=== PATIENT | female | born 1965 | race Caucasian/White ===

== ENCOUNTER 2016-07-12 15:18 | Inpatient (IN) | payer OTHER ==
[~2016-07-12] VITALS: Ht 167.6 cm; Wt 94.9 kg
[~2016-07-12 15:18] MED LIST: AMIT100T2 PO; AMIT25TA9 PO; AMOX500C2 PO; AMT10T PO; ATOR40TA70 PO; BACL10TA PO; BACL20TA PO; CALC-671 PO; CEPH250C PO; CITA-105 PO; CLON1TAB PO; CLON1TAB36 PO; CRB200T PO; CYCL10TA45 PO; DCC240C PO; DICL50TA6 PO; DXM4T PO; GABA400C PO; HYDR-757 PO; LAMO200T14 PO; MULT-1018 PO; MULT-974 PO; Proventil HFA INH; ZIPR80CA9 PO
--- OUTSIDE RECORDS SUMMARY | 2016-07-12 15:25 | XMS REPORT | Continuity of Care Document ---
Author Author [facility] Address Unknown Phone Unavailable Care Team Providers Care [employer] And Caul[employer] Supervisor Name Role Phone Marla Navarro PCP [phone] Source Comments Some departments are not documenting in the electronic medical record. If you do not see the information that you expected, contact Release of Information in the Health Information Management department at [phone] for further assistance in locating additional records.[facility] Active Allergies and Adverse Reactions No Known Allergies Current Medications Prescription Sig. Disp. Refills Start End Date Status Date gabapentin (NEURONTIN) Take 800 mg by mouth Active 300 mg capsule three times daily. TOPIRAMATE (TOPAMAX PO) Take 50 mg by mouth twice Active daily. SERTRALINE HCL (ZOLOFT Take 150 mg by mouth Active PO) daily. amitriptyline (ELAVIL) Take 150 mg by mouth at Active 150 mg tablet bedtime daily. traMADol (ULTRAM) 50 mg Take 50 mg by mouth every Active tablet 8 hours as needed for Pain. baclofen (LIORESAL) 10 mg Take 10 mg by mouth three Active tablet times daily. ACETAMINOPHEN (TYLENOL 8 Take 500 mg by mouth Active HOUR PO) three times daily. atorvastatin (LIPITOR) 40 Take 20 mg by mouth Active mg tablet daily. aspirin/acetaminophen/caf Take 1 Tab by mouth every Active feine(+) (EXCEDRIN 8 hours as needed. MIGRAINE) 250/250/65 mg tab zonisamide (ZONEGRAN) 100 100mg at bedtime for 1 60 Cap 5 05/21/ Active mg capsule week, then 100mg BID 17 carBAMazepine (TEGRETOL) Take 200 mg by mouth Active 200 mg tablet three times daily. Indications: Patient taking twice daily hydrOXYzine (ATARAX) 25 Take 25 mg by mouth three Active mg tablet times daily as needed for Itching. busPIRone (BUSPAR) 10 mg Take 10 mg by mouth three Active tablet times daily. lamoTRIgine (LAMICTAL) 25 Take 75 mg by mouth twice Active mg tablet daily. senna/docusate Take 0.5 Tabs by mouth Active (SENOKOT-S) 8.6/50 mg daily. tablet losartan (COZAAR) 50 mg Take 25 mg by mouth Active tablet daily. Active Problems No known active problems Most Recent Encounters Date Type Specialty Providers Description 06/06/2016 Office Visit Anesthesia Pain Haroon Mi MD Trigeminal neuralgia (Primary Dx); Neuropathic pain 05/22/2016 Ancillary Radiology Outpatient, Radiologist Diagnosis unknown Orders (Primary Dx) 05/21/2016 Office Visit Neurology Rebecca Moya MBBS Chronic face pain (Primary Dx); Seizure (HCC); TBI (traumatic brain injury), with loss of consciousness of unspecified duration, sequela (HCC) 05/21/2016 Orders Only Neurology Rebecca Moya MBBS 05/03/2016 Telephone Neurology Rebecca Moya MBBS Pre-Visit Planning - Dr. Moya 05/21/16 Social History Tobacco Use Types Packs/Day Years Used Date Current Every Day Smoker Cigarettes 1 25 Alcohol Use Drinks/Week oz/Week Comments No 0 Standard 0.0 drinks or equivalent Last Filed Vital Signs Vital Sign Reading Time Taken Blood Pressure 115/79 06/06/2016 1:24 PM [employer] Pulse 94 06/06/2016 1:24 PM [employer] Temperature 36.8 C (98.2 F) 06/06/2016 1:24 PM [employer] Respiratory Rate - - Height 1.702 m (5' 7") 06/06/2016 1:24 PM [employer] Weight 89.359 kg (197 lb) 06/06/2016 1:24 PM [employer] Body Mass Index 30.85 06/06/2016 1:24 PM [employer] Oxygen Saturation 100% 06/06/2016 1:24 PM [employer] Plan of Care Date Type Specialty Providers Description 07/24/2016 Appointment Anesthesia Pain Health Maintenance Due Date Last Done Comments Hepatitis C Screening 1965 Physical (Comprehensive) 08/24/1970 Exam Pertussis Vaccine 08/24/1974 Tetanus Vaccine 08/24/1980 Cervical Cancer Screening 08/24/1984 Breast Cancer Screening 2003 Colorectal Cancer 08/24/2013 Screening Influenza Vaccine 01/03/2017 Results from Last 3 Months TSH WITH FREE T4 REFLEX (05/21/2016 3:04 PM) Component Value Range TSH 3rd Generation 1.56Comment: mIU/L Reference Range > or=20 Years 0.40-4.50 Ranges First trimester 0.26-2.66 Second trimester 0.55-2.73 Third trimester 0.43-2.91 Test Performed at: [employer] [facility] [place] [address] JOVITA OH DO,MPH VITAMIN B12 (05/21/2016 3:04 PM) Component Value Range Vitamin B12 374Comment: 200-1100 pg/mL Please Note: Although the reference range for vitamin B12 is 200-1100 pg/mL, it has been reported that between 5 and 10% of patients with values between 200 and 400 pg/mL may experience neuropsychiatric and hematologic abnormalities due to occult B12 deficiency; less than 1% of patients with values above 400 pg/mL will have symptoms. Test Performed at: [facility] [place] [address] JOVITA OH DO,MPH CBC AND DIFF (05/21/2016 3:04 PM) Component Value Range White Blood Cells 7.7 3.8-10.8 Thousand/uL RBC 4.44 3.80-5.10 Million/uL Hemoglobin 14.0 11.7-15.5 g/dL Hematocrit 42.2 35.0-45.0 % MCV 95.1 80.0-100.0 fL MCH 31.5 27.0-33.0 pg MCHC 33.1 32.0-36.0 g/dL RDW 14.1 11.0-15.0 % Platelet Count 502 (H) 140-400 Thousand/uL MPV 7.6 7.5-11.5 fL Absolute Neutrophil Count 4281 6222-2825 cells/uL Absolute Lymph Count 2895 850-3900 cells/uL Absolute Monocyte Count 408 200-950 cells/uL Absolute Eosinophil Count 92 15-500 cells/uL Absolute Basophil Count 23 0-200 cells/uL Neutrophils 55.6 % Lymphocytes 37.6 % Monocytes 5.3 % Eosinophils 1.2 % Basophils 0.3Comment: % Test Performed at: [facility]ITAL[facility] [place] [address] JOVITA OH DO,MPH SED RATE (05/21/2016 3:04 PM) Component Value Range Sed Rate -ESR 12Comment: < OR=30 mm/h Test Performed at: [employer] [id number] [place] [address] JOVITA OH DO,MPH COMPREHENSIVE METABOLIC PANEL (05/21/2016 3:04 PM) Component Value Range Glucose 77Comment: 65-99 mg/dL Fasting reference interval Blood Urea Nitrogen 9 7-25 mg/dL Creatinine 0.66Comment: 0.50-1.05 mg/dL For patients >49 years of age, the reference limit for Creatinine is approximately 13% higher for people identified as -[place]. eGFR Non 102 > OR=60 mL/min/1.73m2 eGFR 118 > OR=60 mL/min/1.73m2 BUN/Creatinine Ratio NOT APPLICABLE 6-22 (calc) Sodium 135 135-146 mmol/L Potassium 3.9 3.5-5.3 mmol/L Chloride 99 98-110 mmol/L CO2 28 20-31 mmol/L Calcium 9.0 8.6-10.4 mg/dL Total Protein 6.5 6.1-8.1 g/dL Albumin 3.9 3.6-5.1 g/dL Globulin 2.6 1.9-3.7 g/dL (calc) Albumin/Globulin Ratio 1.5 1.0-2.5 (calc) Total Bilirubin 0.3 0.2-1.2 mg/dL Alk Phosphatase 91 33-130 U/L AST (SGOT) 15 10-35 U/L ALT (SGPT) 14Comment: 6-29 U/L Test Performed at: [employer] [id number] [place] [address] JOVITA OH DO,MPH
[2016-07-12] MEDS ORDERED: NS IV 1000 ML 1,000 ML IV ONE (16:47)
[2016-07-12 16:54] LABS: BASOPHILS # (AUTO) 0.1 10^3/uL (0.0-0.1); BASOPHILS % (AUTO) 1 % (0-10); EOSINOPHILS # (AUTO) 0.1 10^3/uL (0.0-0.3); EOSINOPHILS % (AUTO) 1 % (0-10); LYMPHOCYTES # (AUTO) 1.7 X 10^3 (1.0-4.0); LYMPHOCYTES % (AUTO) 18 % (12-44); MEAN CORPUSCULAR HEMOGLOBIN 32 PG (25-34); MEAN CORPUSCULAR HGB CONC 33 G/DL (32-36); MEAN CORPUSCULAR VOLUME 97 FL (80-99); MEAN PLATELET VOLUME 9.2 FL (7.4-10.4); MONOCYTES # (AUTO) 0.7 X 10^3 (0.0-1.0); MONOCYTES % (AUTO) 7 % (0-12); NEUTROPHILS # (AUTO) 6.8 X 10^3 (1.8-7.8); NEUTROPHILS % (AUTO) 73 % (42-75); PLATELET COUNT 389 10^3/uL (130-400); RED BLOOD COUNT 4.08 10^6/uL (4.35-5.85); RED CELL DISTRIBUTION WIDTH 13.3 % (10.0-14.5); WHITE BLOOD COUNT 9.3 10^3/uL (4.3-11.0)
--- NOTE | 2016-07-12 17:03 | ED General ---
General Chief Complaint: Neurological Problems Stated Complaint: SEIZURE, POSS BREAK ON L LEG AND WRIST Nursing Triage Note: PT HAD SEIZURE TODAY. NOW C/O L ANKLE PAIN AND SWELLING AND THAT HER 'HEART HURTS'. Nursing Sepsis Screen: No Definite Risk Source of Information: Patient Exam Limitations: Other (KAMRON SY MD) History of Present Illness Time Seen by Provider: 16:41 Initial Comments Here with daughter who reports that patient had a seizure today. She does have history of seizure disorder. Patient is complaining of a variety of things including that she does not have her anxiety medicines and that her heart hurts. She is also complaining of facial pain due to likely a fall and left lower extremity pain from a fall. She has wounds on her back and her arms that apparently had been evaluated at clinic. She is currently on antibiotic. 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 Patient is slurred of speech and somewhat confused and a little irritable. She does get her medicines some from the [place] and some from [facility]. [facility] is her primary care center here. Denies fever or chills. Denies breathing problems. She is not very descriptive of her pain in her chest except for her heart hurts. She reports swelling of her leg that she states is for the last 2 weeks but there is some confusion and maybe the swelling is worse today or mostly from today. This is in the area of the ankle. Patient is able to walk but she is unsteady in gait. Timing/Duration: 4-6 Hours Severity: Moderate Associated Systoms: Chest PainNo Cough, No Fever/Chills, No Nausea/Vomiting, SeizureNo Shortness of Air, Weakness (KAMRON SY MD) Allergies and Home Medications Allergies Coded Allergies: No Known Drug Allergies (Unverified , 06/09/14) Home Medications 2 PUFF INH Q4H PRN PRN SHORTNESS OF BREATH (Reported) Amitriptyline Hcl 100 Mg Tablet 100 MG PO HS (Reported) Amoxicillin 500 Mg Capsule #21 500 MG PO TID Prescribed by: HUMAIRA HARVEY on 02/10/15 3310 Atorvastatin Calcium 40 Mg Tablet 20 MG PO HS (Reported) take 1/2 of a 40 mg tablet every night Calcium Carbonate/Vitamin D3 1 Each Tablet 1 TAB PO DAILY (Reported) Carbamazepine 200 Mg Tab 200 MG PO BID (Reported) Cephalexin Monohydrate 250 Mg Cap 5Days 500 MG PO BID Prescribed by: IZABELA HARRIS on 10/05/14 09 Citalopram Hydrobromide 40 Mg Tablet 20 MG PO DAILY (Reported) take 1/2 of a 40 mg tablet once daily Clonazepam 1 Mg Tablet 1 MG PO QID (Reported) Cyclobenzaprine Hcl 10 Mg Tablet 10 MG PO TID (Reported) Diclofenac Sodium 50 Mg Tablet.dr 50 MG PO TID PRN PRN MUSCLE SPASMS (Reported) Docusate Calcium 240 Mg Cap 240 MG PO DAILY (Reported) Gabapentin 400 Mg Capsule 1,200 MG PO TID (Reported) take 3 (400 mg) tablets three times per day Hydrocodone/Acetaminophen 1 Each Tablet #10 1 EACH PO Q6H PRN PRN PAIN Prescribed by: HUMAIRA HARVEY on 02/10/151855 Lamotrigine 200 Mg Tablet 200 MG PO BID (Reported) Multivitamin 1 Each Tablet 1 TAB PO DAILY (Reported) Multivits-Min/Folic Acid/Biot 1 Each Tablet 1 TAB PO DAILY (Reported) Constitutional: see HPINo chills, No fever EENTM: No nose congestion, No nose pain, No throat pain Respiratory: No dyspnea on exertion, No short of breath Cardiovascular: chest pain edemaNo palpitations Gastrointestinal: no symptoms reportedNo nausea, No vomiting Genitourinary: no symptoms reported : No Musculoskeletal: joint pain joint swelling muscle pain Skin: see HPI lesions Psychiatric/Neurological: See HPI Anxiety Seizure Weakness Hematologic/Lymphatic: No Symptoms Reported (KAMRON SY MD) All Other Systems Reviewed Negative Unless Noted: Yes (KAMRON SY MD) Past Fuwdwsl-Vtsfqq-Cqusjo Hx Patient Social History Alcohol Use: Denies Use Recreational Drug Use: Yes Drug of Choice: MARIJUANA Smoking Status: Current Everyday Smoker Recent Foreign Travel: No Contact w/Someone Who Travel: No Recent Infectious Disease Expo: No Recent Hopitalizations: No (KAMRON SY MD) Immunizations Up To Date Tetanus Booster (TDap): Less than 5yrs (KAMRON SY MD) Seasonal Allergies Seasonal Allergies: No (KAMRON SY MD) Surgeries HX Surgeries: Yes (FACE) Surgeries: Section, Orthopedic, Tubal Ligation (KAMRON SY MD) Respiratory Hx Respiratory Disorders: No Respiratory Disorders: Pneumonia (KAMRON SY MD) Cardiovascular Hx Cardiac Disorders: No (KAMRON SY MD) Neurological Hx Neurological Disorders: Yes (trigeminal neuralgia) Neurological Disorders: Seizure Disorder, Traumatic Brain Injury (KAMRON SY MD) Reproductive System Hx Reproductive Disorders: No Female Reproductive Disorders: Denies SHUTTLER History: Menopausal (KAMRON SY MD) Genitourinary Hx Genitourinary Disorders: Yes (urgency, incontinent) (KAMRON SY MD) Gastrointestinal Hx Gastrointestinal Disorders: No (KAMRON SY MD) Musculoskeletal Hx Musculoskeletal Disorders: Yes (FACIAL PAIN) Musculoskeletal Disorders: Chronic Back Pain (KAMRON SY MD) Endocrine Hx Endocrine Disorders: No (KAMRON SY MD) HEENT HX ENT Disorders: No (KAMRON SY MD) Cancer Hx Cancer: No (KAMRON SY MD) Psychosocial Hx Psychiatric Problems: Yes Behavioral Health Disorders: Anxiety, PTSD, Bipolar, Depression (KAMRON SY MD) Integumentary HX Skin/Integumentary Disorder: No (KAMRON SY MD) Blood Transfusions Hx Blood Disorders: No (KAMRON SY MD) Reviewed Nursing Assessment Reviewed/Agree w Nursing PMH: Yes (KAMRON SY MD) Family Medical History Significant Family History: No Pertinent Family Hx Family Medial History: Alcoholism 19 FATHER Arthritis 19 MOTHER FH: bipolar disorder (KAMRON SY MD) Family Medial History: Alcoholism 19 FATHER Arthritis 19 MOTHER FH: bipolar disorder (ALINA GUEVARA MD) Physical Exam Vital Signs Vital Sign - Last 12Hours 07/12/16 16:34 Pulse 82 Resp 18 B/P 103/78 Pulse Ox 96 (ALINA GUEVARA MD) Vital Signs Capillary Refill : Less Than 3 Seconds (KAMRON SY MD) General Appearance: WD/WN Anxious HEENT: PERRL/EOMI Other (mucous membranes dry. Tenderness to the left orbital rim and to the chin. There is bruising near the left eye and left cheek.) Neck: Full Range of Motion Normal Inspection Non Tender Supple Respiratory: Lungs Clear Normal Breath Sounds Cardiovascular: Regular Rate, Rhythm No Murmur Gastrointestinal: Non Tender Soft Back: Normal Inspection No CVA Tenderness No Vertebral Tenderness Extremity: Non Tender Pedal Edema (left leg from the foot to just below the knee) Other (mild tenderness to the left ankle and distal tib-fib area.) Neurologic/Psychiatric: Alert Other (fused with unsteady gait) Skin: Warm/Dry Other (multiple areas of excoriation on her back and extremities. Wounds are in various stages of healing and appear to be picked at.) (KAMRON SY MD) Progress/Results/Core Measures Results/Orders Lab Results Laboratory Tests Test 07/12/16 16:45 07/12/16 17:56 Range/Units Acetaminophen Level < 10 L 10-30 UG/ML Alanine Aminotransferase (ALT/SGPT) 17 0-55 U/L Albumin 4.1 3.2-4.5 G/DL Alkaline Phosphatase 96 40-136 U/L Anion Gap 10 5-14 MMOL/L Aspartate Amino Transf (AST/SGOT) 22 5-34 U/L BUN/Creatinine Ratio 9 Basophils # (Auto) 0.1 0.0-0.1 10^3/uL Basophils (%) (Auto) 1 0-10 % Blood Urea Nitrogen 7 7-18 MG/DL C-Reactive Protein High Sensitivity 6.40 H 0.00-0.50 MG/DL Calcium Level 9.4 8.5-10.1 MG/DL Carbon Dioxide Level 28 21-32 MMOL/L Chloride Level 104 98-107 MMOL/L Creatinine 0.77 0.60-1.30 MG/DL D-Dimer 1.93 H 0.00-0.49 UG/ML Eosinophils # (Auto) 0.1 0.0-0.3 10^3/uL Eosinophils (%) (Auto) 1 0-10 % Estimat Glomerular Filtration Rate > 60 Glucose Level 95 70-105 MG/DL Hematocrit 40 35-52 % Hemoglobin 12.9 11.5-16.0 G/DL Lymphocytes # (Auto) 1.7 1.0-4.0 X 10^3 Lymphocytes (%) (Auto) 18 12-44 % Magnesium Level 2.0 1.8-2.4 MG/DL Mean Corpuscular Hemoglobin 32 25-34 PG Mean Corpuscular Hemoglobin Concent 33 32-36 G/DL Mean Corpuscular Volume 97 80-99 FL Mean Platelet Volume 9.2 7.4-10.4 FL Monocytes # (Auto) 0.7 0.0-1.0 X 10^3 Monocytes (%) (Auto) 7 0-12 % Neutrophils # (Auto) 6.8 1.8-7.8 X 10^3 Neutrophils (%) (Auto) 73 42-75 % Platelet Count 389 130-400 10^3/uL Potassium Level 3.9 3.6-5.0 MMOL/L Red Blood Count 4.08 L 4.35-5.85 10^6/uL Red Cell Distribution Width 13.3 10.0-14.5 % Salicylates Level < 5.0 L 5.0-20.0 MG/DL Serum Alcohol < 5 <10 MG/DL Sodium Level 142 135-145 MMOL/L Thyroid Stimulating Hormone (TSH) 0.81 0.35-4.94 UIU/ML Total Bilirubin 0.3 0.1-1.0 MG/DL Total Protein 7.1 6.4-8.2 G/DL Troponin I < 0.30 <0.30 NG/ML White Blood Count 9.3 4.3-11.0 10^3/uL Ur Tricyclic Antidepressants Screen POSITIVE H NEGATIVE Urine Amphetamines Screen NEGATIVE NEGATIVE Urine Bacteria TRACE /HPF Urine Barbiturates Screen NEGATIVE NEGATIVE Urine Benzodiazepines Screen NEGATIVE NEGATIVE Urine Bilirubin NEGATIVE NEGATIVE Urine Cannabinoids Screen NEGATIVE NEGATIVE Urine Casts NONE /LPF Urine Clarity CLEAR Urine Cocaine Screen NEGATIVE NEGATIVE Urine Color YELLOW Urine Crystals NONE /LPF Urine Culture Indicated NO Urine Glucose (UA) NEGATIVE NEGATIVE Urine Ketones NEGATIVE NEGATIVE Urine Leukocyte Esterase NEGATIVE NEGATIVE Urine Methadone Screen NEGATIVE NEGATIVE Urine Methamphetamines Screen NEGATIVE NEGATIVE Urine Mucus SMALL H /LPF Urine Nitrite NEGATIVE NEGATIVE Urine Opiates Screen NEGATIVE NEGATIVE Urine Oxycodone Screen NEGATIVE NEGATIVE Urine Phencyclidine Screen NEGATIVE NEGATIVE Urine Propoxyphene Screen NEGATIVE NEGATIVE Urine Protein NEGATIVE NEGATIVE Urine RBC NONE /HPF Urine RBC (Auto) NEGATIVE NEGATIVE Urine Specific [place] 1.015 L 1.016-1.022 Urine Urobilinogen NORMAL NORMAL MG/DL Urine WBC NONE /HPF Urine pH 6.5 5-9 (ALINA GUEVARA MD) My Orders Orders-ALINA GUEVARA MD Steplite (07/12/16 18:20) Fibrin Degradation Products (07/12/16 18:27) Albuterol/Ipra Inhalation Soln (Duoneb I (07/12/16 18:30) Svn Sm Volume Nebulizer Rt-Rfs (07/12/16 18:27) Ct Angio Chest W (07/12/16 18:41) Us Venous Lower Ext Lt (07/12/16 18:41) Iohexol Injection (Omnipaque 350 Mg/Ml 1 (07/12/16 18:45) Sodium Chloride Flush (Catheter Flush Sy (07/12/16 18:45) Ns (Ivpb) (Sodium Chloride 0.9% Ivpb Bag (07/12/16 18:45) Levofloxacin 750 Mg/150 Ml Iv (Levaquin (07/12/16 20:15) Blood Culture (07/12/16 20:07) Apixaban Tablet (Eliquis Tablet) (07/12/16 20:15) Ceftriaxone Injection (Rocephin Injectio (07/12/16 20:15) Lamotrigine Level (07/12/16 20:27) Carbamazepine (Tegretol) (07/12/16 20:27) Topamax (07/12/16 20:27) Apixaban Tablet (Eliquis Tablet) (07/12/16 20:30) Fentanyl Injection (Sublimaze Injection (07/12/16 20:45) (ALINA GUEVARA MD) Medications Given in ED Current Medications Medications Dose Ordered Sig/Christian Route Start Time Stop Time Status Last Admin Dose Admin Albuterol/ Ipratropium 3 ml ONCE ONCE INH 07/12/16 18:30 07/12/16 18:31 DC 07/12/16 18:35 3 ML Iohexol 150 ml ONCE ONCE IV 07/12/16 18:45 07/12/16 18:46 DC 07/12/16 19:24 125 ML Sodium Chloride 100 ml ONCE ONCE IV 07/12/16 18:45 07/12/16 18:46 DC 07/12/16 19:25 80 ML Sodium Chloride 1,000 ml @ 0 mls/hr Q0M ONCE IV 07/12/16 16:47 07/12/16 16:49 DC 07/12/16 16:50 1,000 MLS/HR (ALINA GUEVARA MD) Vital Signs/I&O Vital Sign - Last 12Hours 07/12/16 07/12/16 16:34 18:35 Pulse 82 Resp 18 B/P 103/78 Pulse Ox 96 92 (ALINA GUEVARA MD) Blood Pressure Mean: 86 Progress Note : Progress Note Seen and evaluated. IV, labs, UA, UDS, CT head, face and neck as well as chest x-ray ordered. Left lower extremity tib-fib and foot x-rays ordered. Normal saline 1 L bolus. Monitor patient. (KAMRON SY MD) Progress Note #1: Time: 18:32 Progress Note Care of this patient was assumed from Dr. Sy at 18:15. I have seen and evaluated this patient and discussed the case with her daughter as well. Patient is alert and oriented but has confused conversation. Mucous membranes are dry. IV fluids are infusing. The swelling in the left leg is worse than usual. A d-dimer has been ordered to evaluate for the swelling in the leg and the chest pain. Labs are relatively unremarkable. X-rays show age- indeterminate fractures in the left toes and foot. A step light boot will be applied. Since patient has altered mental status and multiple falls as well as seizure recently, admission is felt appropriate. Patient was found to be wheezing on exam. DuoNeb treatment has been ordered. Progress Note #2: Time: 20:15 Progress Note Patient had elevated d-dimer in the context of chest discomfort and unilateral leg edema. CT angiogram of the chest was performed which showed bilateral pulmonary emboli. Eliquis 10 mg was ordered. There is also suspicion for multifocal pneumonia and Rocephin was started after blood cultures were drawn. Sepsis was not suspected as patient had no tachycardia, fever or other signs of SIRS. Fentanyl was ordered for pain. Case was reviewed with Dr. Medina who would like to patient admitted to the ICU. A step light boot was applied to the subacute fractures of the left foot. (ALINA GUEVARA MD) ECG Initial ECG Impression Date: Jul 12, 2016 Initial ECG Impression Time: 17:36 Initial ECG Rate: 78 Initial ECG Rhythm: Normal Sinus Comment Sinus rhythm with normal axis. No no evidence of ST elevation [place]. Similar to previous. Interpreted by me. (KAMRON SY MD) Diagnostic Imaging Diagonstic Imaging: CT Plain Films/CT/US/NM/MRI: facial bones, c-spine, head Comments VIA [facility], [facility]. [place], [place] NAME: RENATO NEGRON [facility] REC#: [id number] PT STATUS: REG ER : 1965 PHYSICIAN: AKMRON SY MD ADMIT DATE: 07/12/16/ER Draft Date of Exam:07/12/16 CT HEAD/FACE/CERVICAL WO PROCEDURE: CT head, face, and cervical spine without contrast. TECHNIQUE: Multiple contiguous axial images were obtained through the head, neck, and facial bones without the use of intravenous contrast. Sagittal and coronal reformations through the cervical spine and facial bones were also performed. INDICATION: Seizures. COMPARISON: MRI brain without and with IV contrast 02/28/2016. FINDINGS: CT head including maxillofacial: No intracranial hemorrhage, mass effect, hydrocephalus or extra-axial fluid collections. No CT evidence of acute infarction. Intracranial vascular calcifications. Osseous structures are intact including the maxillofacial structures. The visualized paranasal sinuses, mastoids and orbits are negative. CT cervical spine: Moderate to advanced degenerative endplate changes are most marked at C5-C6. Normal alignment. No fractures. Vertebral body heights are maintained. No high-grade spinal canal narrowing on this noncontrast exam. The visualized paravertebral soft tissues are unremarkable. IMPRESSION: No acute intracranial or cervical spine CT findings. No maxillofacial fractures. Dictated on workstation # [id number] Dict: 07/12/16 1721 Trans: 07/12/16 1729 [facility] [id number] Interpreted by: OSCAR WILL MD Electronically signed by: (KAMRON SY MD) Diagonstic Imaging: Xray Plain Films/CT/US/NM/MRI: other (foot) Comments x-ray the foot viewed by me and report reviewed. See report below: NAME: RENATO NEGRON [facility] REC#: [id number] PT STATUS: REG ER : 1965 PHYSICIAN: KAMRON SY MD ADMIT DATE: 07/12/16/ER Draft Date of Exam:07/12/16 FOOT, LEFT, 3 VIEWS EXAMINATION: Left foot, three views. COMPARISON: Left ankle radiographs, January 06, 2015. HISTORY: A 50-year-old female, seizure. Left foot pain. FINDINGS: There are fractures of the second proximal phalanx and fourth proximal phalanx. There does appear to be some adjacent productive bone formation although the fracture lines are visible. These are of uncertain exact age and may potentially be subacute or acute. There is a contour deformity of the fourth metatarsal neck likely relating to an acute fracture. There is also a nondisplaced fracture deformity of the distal diaphysis of the fifth metatarsal. This is unclear in exact age. There is also slight contour deformity of the third metatarsal neck which may potentially relate to fracture of uncertain exact age. There are degenerative changes at the first metatarsophalangeal joint. There are severe tibiotalar degenerative changes. There is generalized soft tissue swelling although particularly prominent dorsally at the level of the distal metatarsals. IMPRESSION: 1. Age-indeterminate fractures of the second proximal phalanx and fourth proximal phalanx as well as the third, fourth, and fifth distal metatarsals. Dictated on workstation # [id number] Dict: 07/12/16 180 Trans: 07/12/161805 [id number] Interpreted by: GEOVANNA WILDER MD Diagonstic Imaging: Xray Plain Films/CT/US/NM/MRI: leg Comments NAME: RENATO NEGRON [facility] REC#: [id number] PT STATUS: REG ER : 1965 PHYSICIAN: KAMRON SY MD ADMIT DATE: 07/12/16/ER Draft Date of Exam:07/12/16 TIBIA/FIBULA, LEFT, 2 VIEWS EXAMINATION: Left tibia and fibula, two views, four images. COMPARISON: Left ankle radiographs, January 06, 2015. HISTORY: A 50-year-old female, seizure. Left leg pain. FINDINGS: There is side plate and screw fixation hardware at the level of the distal tibia and fibula. The hardware appears intact. There is degenerative type enthesopathy at the insertion of the Achilles tendon. There is a calcaneal heel spur. There is degenerative type enthesopathy at the distal quadriceps tendon insertion. There is no identified left knee joint effusion. There is no identified acute fracture. There are advanced tibiotalar degenerative changes. There are prominent subchondral cysts within the talus. There is mild generalized subcutaneous edema particularly near the level of the ankle. IMPRESSION: 1. 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 2. Intact hardware in the distal tibia and fibula without identified hardware complication. 3. No identified acute bony abnormality of the tibia or fibula. Dictated on workstation # [id number] Dict: 07/12/16 1759 Trans: 07/12/16 180[facility] [id number] Interpreted by: GEOVANNA WILDER MD Diagonstic Imaging: Xray Plain Films/CT/US/NM/MRI: chest Comments NAME: RENATO NEGRON MED REC#: [id number] PT STATUS: REG ER : 1965 PHYSICIAN: HUMAIRA HARVEY APRN ADMIT DATE: 07/12/16/ER Draft Date of Exam:07/12/16 CHEST 1 VIEW, AP/PA ONLY EXAMINATION: Chest radiograph, portable AP view. DATE: July 12, 2016 at 1730 hours. INDICATION: 50-year-old female, seizure. COMPARISON: October 04, 2014. FINDINGS: Stable overall appearance of the cardiomediastinal silhouette. There is no identified pneumothorax. There is no large pleural effusion. There is no identified focal airspace consolidation. Previously noted areas of right parahilar and right upper lobe airspace consolidation appear resolved. IMPRESSION: 1. No identified acute cardiopulmonary abnormality. Dictated on workstation # [id number] Dict: 07/12/16 1758 Trans: 07/12/16 180[facility] [id number] Interpreted by: GEOVANNA WILDER MD Electronically signed by: Ángelnstic Imaging: Ultrasound Plain Films/CT/US/NM/MRI: leg Comments Ultrasound left lower extremity report reviewed. See report below: NAME: RENATO NEGRON MED REC#: [id number] PT STATUS: REG ER : 1965 PHYSICIAN: ALINA GUEVARA MD ADMIT DATE: 07/12/16/ER Draft Date of Exam:07/12/16 US VENOUS LOWER EXT LT PROCEDURE: US left lower extremity venous. TECHNIQUE: Multiple real-time grayscale images were obtained over the left lower extremity in various projections. Additional duplex Doppler and color Doppler images were also obtained. DATE: July 12, 2016. INDICATION: 50-year-old female, left leg pain. COMPARISON: None. FINDINGS: The left common femoral vein, left superficial femoral vein as well as the visualized portions of the left deep femoral vein are patent. The left popliteal vein and posterior tibial vein are patent. IMPRESSION: 1. Negative for left lower extremity deep venous thrombosis. Dictated on workstation # [id number] Dict: 07/12/161931 Trans: 07/12/161934 [id number] Interpreted by: GEOVANNA WILDER MD Electronically signed by: Diagonstic Imaging: CT Plain Films/CT/US/NM/MRI: chest Comments CT angiogram of the chest viewed by me and report reviewed. See report below: NAME: RENATO NEGRON [facility] REC#: [id number] PT STATUS: REG ER : 1965 PHYSICIAN: ALINA GUEVARA MD ADMIT DATE: 07/12/16/ER Draft Date of Exam:07/12/16 CT ANGIO CHEST W PROCEDURE: CT angiography of the chest with contrast. TECHNIQUE: Multiple contiguous axial images were obtained through the chest after uneventful bolus administration of intravenous contrast. Reconstructed CTA MIP acquisitions were also performed. DATE: July 12, 2016. COMPARISON: Chest radiograph from July 12, 2016. CT chest from October 01, 2014. INDICATION: 3s-year-old female, left-sided chest pain for one month. FINDINGS: There are patchy areas of groundglass attenuation in the right upper lobe on axial image 51 and adjacent sequential images. There is also patchy groundglass attenuation in the right middle lobe. There are subtle areas of patchy groundglass attenuation in the right lower lobe. There are patchy areas of prominently groundglass attenuation in the left upper lobe with mild linear opacities. There is no identified solitary pulmonary nodule. There is nonspecific bronchial wall thickening, bilaterally. There is opacification within the left lower lobe subsegmental bronchus on axial image 94. There is no identified pneumothorax. There is no pleural effusion. There is a left lower lobe subsegmental pulmonary embolus on axial image 72. There is a right lower lobe segmental and subsegmental pulmonary embolus seen on axial image 79 and adjacent sequential images. There is an additional right lower lobe and subsegmental pulmonary embolus on image 81, more anteriorly. The main pulmonary artery measures 2.7 cm in diameter which is within normal limits in diameter. The heart is not enlarged. There is no pericardial effusion. There is no identified abnormally enlarged mediastinal, hilar or axillary lymph node which meets CT size criteria for adenopathy. Limited visualized portions of the upper abdomen are unremarkable. There is a chronic appearing left lower rib fracture. There is no identified acute bony abnormality. IMPRESSION: CT chest: 1. Segmental and subsegmental bilateral pulmonary emboli, as described above. No abnormal dilation of the main pulmonary artery to particularly suggest elevated pressures. 2. Patchy multifocal areas of predominantly groundglass lung attenuation. This potentially could relate to findings of chronic pulmonary embolism. Differential diagnostic considerations would include multifocal pneumonia and atypical infectious etiologies in the differential diagnosis or pneumonitis such as hypersensitive pneumonitis. Clinical correlation may be helpful. Dictated on workstation # [id number] Dict: 07/12/161947 Trans: 07/12/161957 [facility] [id number] Interpreted by: GEOVANNA WILDER MD (ALINA GUEVARA MD) Departure Communication Time/Spoke to Admitting Phy: 20:[address] Medina (ALINA GUEVARA MD) Pneumonia Admission Pseudomonal Risk: No known risk Patient allergy/sensitivity/re: None Pneumonia order set available: CAP ICU Notes Rocephin initiated in the ER after blood cultures were collected. (ALINA GUEVARA MD) Impression Impression: Primary Impression: Altered mental state Qualified Code: R41.82 - Altered mental status, unspecified Additional Impressions: Falls Qualified Code: W19.XXXA - Unspecified fall, initial encounter Seizure Chest pain Qualified Code: R07.9 - Chest pain, unspecified Bilateral pulmonary embolism Atypical pneumonia subacute fracture left foot Disposition: ADMITTED INPATIENT Condition: Improved Decision to Admit Reason: Admit from ER (General) Decision to Admit/Date: Jul 12, 2016 Time/Decision to Admit Time: 18:15 (ALINA GUEVARA MD) Departure-Patient Inst. Referrals: [facility] (PCP/Family) Primary Care Physician KAMRON SY MD Jul 12, 2016 17:03 ALINA GUEVARA MD Jul 12, 2016 18:36
[2016-07-12 17:13] LABS: ALANINE AMINOTRANSFERASE 17 U/L (0-55); ALBUMIN 4.1 G/DL (3.2-4.5); ANION GAP 10 MMOL/L (5-14); ASPARTATE AMINO TRANSFERASE 22 U/L (5-34); BILIRUBIN,TOTAL 0.3 MG/DL (0.1-1.0); BLOOD UREA NITROGEN 7 MG/DL (7-18); BUN/CREATININE RATIO 9; CALCIUM 9.4 MG/DL (8.5-10.1); CARBON DIOXIDE 28 MMOL/L (21-32); CHLORIDE 104 MMOL/L (98-107); CREATININE SERUM 0.77 MG/DL (0.60-1.30); GFR ESTIMATED > 60; GLUCOSE 95 MG/DL (70-105); POTASSIUM 3.9 MMOL/L (3.6-5.0); SODIUM 142 MMOL/L (135-145); TOTAL PROTEIN 7.1 G/DL (6.4-8.2)
--- NOTE | 2016-07-12 17:29 | Diagnostic Imaging Report ---
PROCEDURE: CT head, face, and cervical spine without contrast. TECHNIQUE: Multiple contiguous axial images were obtained through the head, neck, and facial bones without the use of intravenous contrast. Sagittal and coronal reformations through the cervical spine and facial bones were also performed. INDICATION: Seizures. COMPARISON: MRI brain without and with IV contrast 02/28/2016. FINDINGS: CT head including maxillofacial: No intracranial hemorrhage, mass effect, hydrocephalus or extra-axial fluid collections. No CT evidence of acute infarction. Intracranial vascular calcifications. Osseous structures are intact including the maxillofacial structures. The visualized paranasal sinuses, mastoids and orbits are negative. CT cervical spine: Moderate to advanced degenerative endplate changes are most marked at C5-C6. Normal alignment. No fractures. Vertebral body heights are maintained. No high-grade spinal canal narrowing on this noncontrast exam. The visualized paravertebral soft tissues are unremarkable. IMPRESSION: No acute intracranial or cervical spine CT findings. No maxillofacial fractures. Dictated by: Dictated on workstation # [id number]
[2016-07-12 17:32] LABS: ACETAMINOPHEN < 10 UG/ML (10-30); ALCOHOL < 5 MG/DL (<10); SALICYLATE < 5.0 MG/DL (5.0-20.0)
[2016-07-12 17:33] LABS: THYROID STIMULATING HORMONE 0.81 UIU/ML (0.35-4.94); TROPONIN I < 0.30 NG/ML (<0.30)
[2016-07-12 18:04] LABS: BILIRUBIN,URINE NEGATIVE (NEGATIVE); KETONES,URINE NEGATIVE (NEGATIVE); LEUKOCYTE ESTERASE ,URINE NEGATIVE (NEGATIVE); NITRITE,URINE NEGATIVE (NEGATIVE); PH,URINE 6.5 (5-9); PROTEIN,URINE NEGATIVE (NEGATIVE); UROBILINOGEN,URINE NORMAL (NORMAL)
--- NOTE | 2016-07-12 18:04 | Diagnostic Imaging Report ---
EXAMINATION: Chest radiograph, portable AP view. DATE: July 12, 2016 at 1730 hours. INDICATION: 50-year-old female, seizure. COMPARISON: October 04, 2014. FINDINGS: Stable overall appearance of the cardiomediastinal silhouette. There is no identified pneumothorax. There is no large pleural effusion. There is no identified focal airspace consolidation. Previously noted areas of right parahilar and right upper lobe airspace consolidation appear resolved. IMPRESSION: 1. No identified acute cardiopulmonary abnormality. Dictated by: Dictated on workstation # [id number]
--- NOTE | 2016-07-12 18:04 | Diagnostic Imaging Report ---
EXAMINATION: Left tibia and fibula, two views, four images. COMPARISON: Left ankle radiographs, January 06, 2015. HISTORY: A 50-year-old female, seizure. Left leg pain. FINDINGS: There is side plate and screw fixation hardware at the level of the distal tibia and fibula. The hardware appears intact. There is degenerative type enthesopathy at the insertion of the Achilles tendon. There is a calcaneal heel spur. There is degenerative type enthesopathy at the distal quadriceps tendon insertion. There is no identified left knee joint effusion. There is no identified acute fracture. There are advanced tibiotalar degenerative changes. There are prominent subchondral cysts within the talus. There is mild generalized subcutaneous edema particularly near the level of the ankle. IMPRESSION: 1. 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 2. Intact hardware in the distal tibia and fibula without identified hardware complication. 3. No identified acute bony abnormality of the tibia or fibula. Dictated by: Dictated on workstation # [id number]
--- NOTE | 2016-07-12 18:07 | Diagnostic Imaging Report ---
EXAMINATION: Left foot, three views. COMPARISON: Left ankle radiographs, January 06, 2015. HISTORY: A 50-year-old female, seizure. Left foot pain. FINDINGS: There are fractures of the second proximal phalanx and fourth proximal phalanx. There does appear to be some adjacent productive bone formation although the fracture lines are visible. These are of uncertain exact age and may potentially be subacute or acute. There is a contour deformity of the fourth metatarsal neck likely relating to an acute fracture. There is also a nondisplaced fracture deformity of the distal diaphysis of the fifth metatarsal. This is unclear in exact age. There is also slight contour deformity of the third metatarsal neck which may potentially relate to fracture of uncertain exact age. There are degenerative changes at the first metatarsophalangeal joint. There are severe tibiotalar degenerative changes. There is generalized soft tissue swelling although particularly prominent dorsally at the level of the distal metatarsals. IMPRESSION: 1. Age-indeterminate fractures of the second proximal phalanx and fourth proximal phalanx as well as the third, fourth, and fifth distal metatarsals. Dictated by: Dictated on workstation # [id number]
[2016-07-12] MEDS ORDERED: RT-ALBUTEROL/IPRATROPIUM 3 ML (DUONEB) VIAL INH ONE (18:30)
[2016-07-12] MEDS ORDERED: CATHETER FLUSH 10 ML SYR IV PRN (18:45)
[2016-07-12] MEDS ORDERED: NS 100 ML (IVPB) BAG IV ONE (18:45)
[2016-07-12] MEDS ORDERED: IOHEXOL 350 MG/ML 150 ML (OMNIPAQUE 350) VIAL IV ONE (18:45)
--- NOTE | 2016-07-12 19:35 | Diagnostic Imaging Report ---
PROCEDURE: US left lower extremity venous. TECHNIQUE: Multiple real-time grayscale images were obtained over the left lower extremity in various projections. Additional duplex Doppler and color Doppler images were also obtained. DATE: July 12, 2016. INDICATION: 50-year-old female, left leg pain. COMPARISON: None. FINDINGS: The left common femoral vein, left superficial femoral vein as well as the visualized portions of the left deep femoral vein are patent. The left popliteal vein and posterior tibial vein are patent. IMPRESSION: 1. Negative for left lower extremity deep venous thrombosis. Dictated by: Dictated on workstation # [id number]
--- NOTE | 2016-07-12 19:59 | Diagnostic Imaging Report ---
PROCEDURE: CT angiography of the chest with contrast. TECHNIQUE: Multiple contiguous axial images were obtained through the chest after uneventful bolus administration of intravenous contrast. Reconstructed CTA MIP acquisitions were also performed. DATE: July 12, 2016. COMPARISON: Chest radiograph from July 12, 2016. CT chest from October 01, 2014. INDICATION: 3s-year-old female, left-sided chest pain for one month. FINDINGS: There are patchy areas of groundglass attenuation in the right upper lobe on axial image 51 and adjacent sequential images. There is also patchy groundglass attenuation in the right middle lobe. There are subtle areas of patchy groundglass attenuation in the right lower lobe. There are patchy areas of prominently groundglass attenuation in the left upper lobe with mild linear opacities. There is no identified solitary pulmonary nodule. There is nonspecific bronchial wall thickening, bilaterally. There is opacification within the left lower lobe subsegmental bronchus on axial image 94. There is no identified pneumothorax. There is no pleural effusion. There is a left lower lobe subsegmental pulmonary embolus on axial image 72. There is a right lower lobe segmental and subsegmental pulmonary embolus seen on axial image 79 and adjacent sequential images. There is an additional right lower lobe and subsegmental pulmonary embolus on image 81, more anteriorly. The main pulmonary artery measures 2.7 cm in diameter which is within normal limits in diameter. The heart is not enlarged. There is no pericardial effusion. There is no identified abnormally enlarged mediastinal, hilar or axillary lymph node which meets CT size criteria for adenopathy. Limited visualized portions of the upper abdomen are unremarkable. There is a chronic appearing left lower rib fracture. There is no identified acute bony abnormality. IMPRESSION: CT chest: 1. Segmental and subsegmental bilateral pulmonary emboli, as described above. No abnormal dilation of the main pulmonary artery to particularly suggest elevated pressures. 2. Patchy multifocal areas of predominantly groundglass lung attenuation. This potentially could relate to findings of chronic pulmonary embolism. Differential diagnostic considerations would include multifocal pneumonia and atypical infectious etiologies in the differential diagnosis or pneumonitis such as hypersensitive pneumonitis. Clinical correlation may be helpful. Dictated by: Dictated on workstation # [id number]
[2016-07-12] MEDS ORDERED: cefTRIAXone INJECTION 1,000 MG in NS (IVPB) 50 ML IV ONE (20:15)
[2016-07-12] MEDS ORDERED: APIXABAN 5 MG (ELIQUIS) TABLET PO ONE ×2 (20:15→20:30)
[2016-07-12] MEDS ORDERED: LEVOFLOXACIN 750 MG/150 ML IV 150 ML IV ONE (20:15)
[2016-07-12] MEDS ORDERED: fentaNYL INJECTION 100 MCG/2 ML AMP IVP ONE (20:45)
[2016-07-12] MEDS ORDERED: NS IV 1000 ML 1,000 ML ONE (21:17)
[2016-07-12 21:20] VITALS: BP 142/98
[2016-07-12] MEDS ORDERED: ONDANSETRON 4 MG/2 ML (SDV) Z0FRAN IVP PRN (21:45)
[2016-07-12 22:00] VITALS: BP 147/78
[2016-07-12] MEDS: NS IV 1000 ML 1,000 ML IV SCH (22:03)
[2016-07-12] MEDS: fentaNYL INJECTION 100 MCG/2 ML AMP IVP PRN (22:08)
[2016-07-12] MEDS: AZITHROMYCIN INJECTION 500 MG in NS (IVPB) 250 ML IV SCH (22:56)
[2016-07-12 23:00] VITALS: BP 120/61
[2016-07-12] MEDS ORDERED: lamoTRIgine 25 MG (LaMICtal) TAB ONE (23:00)
[2016-07-13] VITALS (24 sets, daily range): BP systolic 84–141; BP diastolic 43–84
[2016-07-13] MEDS ORDERED: RT-ALBUTEROL HFA (VENTOLIN) PER PUFF IH PRN (03:00)
[2016-07-13] MEDS: fentaNYL INJECTION 100 MCG/2 ML AMP IVP PRN ×3 (03:27→10:47)
[2016-07-13 04:25] LABS: BASOPHILS % (AUTO) 1 % (0-10); EOSINOPHILS # (AUTO) 0.3 10^3/uL (0.0-0.3); EOSINOPHILS % (AUTO) 3 % (0-10); LYMPHOCYTES # (AUTO) 2.8 X 10^3 (1.0-4.0); LYMPHOCYTES % (AUTO) 35 % (12-44); MEAN CORPUSCULAR HEMOGLOBIN 32 PG (25-34); MEAN CORPUSCULAR HGB CONC 32 G/DL (32-36); MEAN CORPUSCULAR VOLUME 98 FL (80-99); MEAN PLATELET VOLUME 9.8 FL (7.4-10.4); MONOCYTES # (AUTO) 0.8 X 10^3 (0.0-1.0); MONOCYTES % (AUTO) 10 % (0-12); NEUTROPHILS # (AUTO) 4.1 X 10^3 (1.8-7.8); NEUTROPHILS % (AUTO) 52 % (42-75); PLATELET COUNT 341 10^3/uL (130-400); RED BLOOD COUNT 3.54 10^6/uL (4.35-5.85); RED CELL DISTRIBUTION WIDTH 13.3 % (10.0-14.5); WHITE BLOOD COUNT 7.9 10^3/uL (4.3-11.0)
[2016-07-13 04:54] LABS: ALANINE AMINOTRANSFERASE 14 U/L (0-55); ALBUMIN 3.1 G/DL (3.2-4.5); ANION GAP 10 MMOL/L (5-14); ASPARTATE AMINO TRANSFERASE 18 U/L (5-34); BILIRUBIN,TOTAL 0.3 MG/DL (0.1-1.0); BLOOD UREA NITROGEN 6 MG/DL (7-18); BUN/CREATININE RATIO 9; CALCIUM 8.3 MG/DL (8.5-10.1); CARBON DIOXIDE 22 MMOL/L (21-32); CHLORIDE 111 MMOL/L (98-107); CREATININE SERUM 0.69 MG/DL (0.60-1.30); GFR ESTIMATED > 60; GLUCOSE 86 MG/DL (70-105); POTASSIUM 3.4 MMOL/L (3.6-5.0); SODIUM 143 MMOL/L (135-145); TOTAL PROTEIN 5.4 G/DL (6.4-8.2)
[2016-07-13 05:42] LABS: MAGNESIUM 1.8 MG/DL (1.8-2.4); PHOSPHORUS 3.2 MG/DL (2.3-4.7)
[2016-07-13] MEDS: KCL 20 MEQ TAB (K-DUR) PO SCH (06:00)
[2016-07-13] MEDS: POTASSIUM CL 10MEQ/50ML IVPB 50 ML IV SCH (06:00)
[2016-07-13] MEDS: MAGNESIUM 1 GM/100 ML IVPB 100 ML IV SCH (06:00)
[2016-07-13] MEDS ORDERED: KCL 20 MEQ TAB (K-DUR) PO ONE (06:15)
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
[2016-07-13] MEDS: MULTIVIT W/MINERALS TAB (THERAGRAN M) PO SCH (06:42)
[2016-07-13] MEDS: NS IV 1000 ML 1,000 ML IV SCH ×2 (07:33→17:24)
[2016-07-13] MEDS: CALCIUM CARB + VIT D 600 MG (CALCARB + D) TAB PO SCH (09:00)
[2016-07-13] MEDS: GABAPENTIN 400 MG (NEURONTIN) CAP PO SCH ×3 (09:00→21:22)
[2016-07-13] MEDS: PANTOPRAZOLE 40 MG (PROTONIX) TAB PO SCH ×2 (09:00→21:21)
[2016-07-13] MEDS ORDERED: lamoTRIgine 25 MG (LaMICtal) TAB PO SCH (09:00)
[2016-07-13] MEDS ORDERED: FLU TRIvalent (5 YOA+) 2016-17 (AFLURIA) 0.5 ML IM ONE (09:00)
[2016-07-13] MEDS: CYCLOBENZAPRINE 10 MG (FLEXERIL) TAB PO SCH ×3 (09:01→21:24)
[2016-07-13] MEDS: APIXABAN 5 MG (ELIQUIS) TABLET PO SCH ×2 (09:01→21:24)
[2016-07-13] MEDS: carBAMazepine 200 MG (TEGretol) TAB PO SCH ×2 (09:01→21:24)
--- NOTE | 2016-07-13 09:08 | Diagnostic Imaging Report ---
INDICATION: Pulmonary embolism. FINDINGS: There's cardiomegaly. There is some venous congestion. There is some left basilar atelectasis and/or pneumonitis. There is no pleural effusion or pneumothorax. The mediastinum is unremarkable. IMPRESSION: Cardiomegaly and mild venous congestion with some left basilar subsegmental atelectasis and/or pneumonitis. Dictated by: Dictated on workstation # [id number]
[2016-07-13] MEDS: HYDROcodone/APAP 5 MG/325 MG (LORTAB) TAB PO PRN (09:36)
[2016-07-13] MEDS: DOCUSATE CALCIUM 240 MG (SURFAK) CAP PO SCH (10:31)
[2016-07-13] MEDS: clonazePAM 1 MG (KlonoPIN) TAB PO SCH ×4 (10:31→21:23)
[2016-07-13] MEDS: cefTRIAXone INJECTION 1,000 MG in NS (IVPB) 50 ML IV SCH (21:21)
[2016-07-13] MEDS: AMITRIPTYLINE 50 MG (ELAVIL) TAB PO SCH (21:22)
[2016-07-13] MEDS: ATORVASTATIN 40 MG (LIPITOR) TABLET PO SCH (21:25)
[2016-07-13] MEDS: AZITHROMYCIN INJECTION 500 MG in NS (IVPB) 250 ML IV SCH (22:21)
[2016-07-14] VITALS (18 sets, daily range): BP systolic 99–156; BP diastolic 57–92
[2016-07-14] MEDS: NS IV 1000 ML 1,000 ML IV SCH ×3 (03:45→15:19)
[2016-07-14 04:35] LABS: BASOPHILS # (AUTO) 0.1 10^3/uL (0.0-0.1); BASOPHILS % (AUTO) 1 % (0-10); EOSINOPHILS # (AUTO) 0.3 10^3/uL (0.0-0.3); EOSINOPHILS % (AUTO) 3 % (0-10); LYMPHOCYTES # (AUTO) 3.1 X 10^3 (1.0-4.0); LYMPHOCYTES % (AUTO) 37 % (12-44); MEAN CORPUSCULAR HEMOGLOBIN 32 PG (25-34); MEAN CORPUSCULAR HGB CONC 32 G/DL (32-36); MEAN CORPUSCULAR VOLUME 100 FL (80-99); MEAN PLATELET VOLUME 9.7 FL (7.4-10.4); MONOCYTES # (AUTO) 0.8 X 10^3 (0.0-1.0); MONOCYTES % (AUTO) 9 % (0-12); NEUTROPHILS # (AUTO) 4.2 X 10^3 (1.8-7.8); NEUTROPHILS % (AUTO) 50 % (42-75); PLATELET COUNT 360 10^3/uL (130-400); RED BLOOD COUNT 3.74 10^6/uL (4.35-5.85); RED CELL DISTRIBUTION WIDTH 13.7 % (10.0-14.5); WHITE BLOOD COUNT 8.3 10^3/uL (4.3-11.0)
[2016-07-14 04:55] LABS: ANION GAP 8 MMOL/L (5-14); BLOOD UREA NITROGEN 7 MG/DL (7-18); BUN/CREATININE RATIO 9; CALCIUM 8.4 MG/DL (8.5-10.1); CARBON DIOXIDE 24 MMOL/L (21-32); CHLORIDE 112 MMOL/L (98-107); CREATININE SERUM 0.75 MG/DL (0.60-1.30); GFR ESTIMATED > 60; GLUCOSE 97 MG/DL (70-105); MAGNESIUM 1.8 MG/DL (1.8-2.4); PHOSPHORUS 3.2 MG/DL (2.3-4.7); POTASSIUM 3.8 MMOL/L (3.6-5.0); SODIUM 144 MMOL/L (135-145)
[2016-07-14] MEDS: MAGNESIUM 1 GM/100 ML IVPB 100 ML IV SCH (06:00)
[2016-07-14] MEDS: POTASSIUM CL 10MEQ/50ML IVPB 50 ML IV SCH (06:00)
[2016-07-14] MEDS: KCL 20 MEQ TAB (K-DUR) PO SCH (06:00)
[2016-07-14] MEDS: MULTIVIT W/MINERALS TAB (THERAGRAN M) PO SCH (07:08)
[2016-07-14] MEDS: DOCUSATE CALCIUM 240 MG (SURFAK) CAP PO SCH (08:58)
[2016-07-14] MEDS: clonazePAM 1 MG (KlonoPIN) TAB PO SCH ×4 (08:59→22:00)
[2016-07-14] MEDS: CALCIUM CARB + VIT D 600 MG (CALCARB + D) TAB PO SCH (08:59)
[2016-07-14] MEDS: CYCLOBENZAPRINE 10 MG (FLEXERIL) TAB PO SCH ×3 (08:59→21:59)
[2016-07-14] MEDS: carBAMazepine 200 MG (TEGretol) TAB PO SCH ×2 (08:59→21:59)
[2016-07-14] MEDS: GABAPENTIN 400 MG (NEURONTIN) CAP PO SCH ×3 (09:00→21:58)
[2016-07-14] MEDS: APIXABAN 5 MG (ELIQUIS) TABLET PO SCH ×2 (09:01→21:58)
[2016-07-14] MEDS: PANTOPRAZOLE 40 MG (PROTONIX) TAB PO SCH ×2 (09:01→21:59)
--- NOTE | 2016-07-14 10:13 | Progress Note (SOAP) ---
Subjective Subjective/Events-last exam discussion with patient today regarding her breathing reveals that she is not having any significant shortness of breath. Her appetite has improved. She does complain to me about her right sided facial pain, but this is ongoing. Date seen by provider: Jul 14, 2016 Objective Exam Last Set of Vital Signs Vital Signs Date Time Temp Pulse Resp B/P Pulse Ox O2 Delivery O2 Flow Rate FiO2 07/14/16 09:01 97.8 75 12 115/90 96 Room Air Capillary Refill : Less Than 3 SecondsLess Than 3 Seconds I&O Intake and Output 07/13/16 23:59 Intake Total 2810 ml Output Total 0 ml Balance 2810 ml Intake Oral 1290 ml IV Total 1520 ml Output Urine Total 0 ml General: No Acute Distress Neck: Supple Lungs: Other (decreased breath sounds and slight coarseness) Abdomen: Soft Results/Procedures Lab Laboratory Tests 07/14/16 04:05: Anion Gap 8, BUN/Creatinine Ratio 9, Basophils # (Auto) 0.1, Basophils (%) (Auto ) 1, Blood Urea Nitrogen 7, Calcium Level 8.4L, Carbon Dioxide Level 24, Chloride Level 112H, Creatinine 0.75, Eosinophils # (Auto) 0.3, Eosinophils (%) (Auto) 3, Estimat Glomerular Filtration Rate > 60, Glucose Level 97, Hematocrit 37, Hemoglobin 11.8, Lymphocytes # (Auto) 3.1, Lymphocytes (%) (Auto) 37, Magnesium Level 1.8, Mean Corpuscular Hemoglobin 32, Mean Corpuscular Hemoglobin Concent 32, Mean Corpuscular Volume 100H, Mean Platelet Volume 9.7, Monocytes # (Auto) 0.8, Monocytes (%) (Auto) 9, Neutrophils # (Auto) 4.2, Neutrophils (%) (Auto) 50, Phosphorus Level 3.2, Platelet Count 360, Potassium Level 3.8, Red Blood Count 3.74L, Red Cell Distribution Width 13.7, Sodium Level 144, White Blood Count 8.3 Microbiology 07/12/16 Blood Culture - Preliminary, Resulted No growth Radiology NAME: RENATO NEGRON [facility] REC#: [id number] PT STATUS: ADM IN : 1965 PHYSICIAN: KAMRON SY MD ADMIT DATE: 07/12/16/ICU Signed Date of Exam: 07/12/16 CT HEAD/FACE/CERVICAL WO PROCEDURE: CT head, face, and cervical spine without contrast. TECHNIQUE: Multiple contiguous axial images were obtained through the head, neck, and facial bones without the use of intravenous contrast. Sagittal and coronal reformations through the cervical spine and facial bones were also performed. INDICATION: Seizures. COMPARISON: MRI brain without and with IV contrast 02/28/2016. FINDINGS: CT head including maxillofacial: No intracranial hemorrhage, mass effect, hydrocephalus or extra-axial fluid collections. No CT evidence of acute infarction. Intracranial vascular calcifications. Osseous structures are intact including the maxillofacial structures. The visualized paranasal sinuses, mastoids and orbits are negative. CT cervical spine: Moderate to advanced degenerative endplate changes are most marked at C5-C6. Normal alignment. No fractures. Vertebral body heights are maintained. No high-grade spinal canal narrowing on this noncontrast exam. The visualized paravertebral soft tissues are unremarkable. IMPRESSION: No acute intracranial or cervical spine CT findings. No maxillofacial fractures. Dictated by: Dictated on workstation # [id number] Dict: 07/12/161720 Trans: 07/12/162144 [facility] [id number] Interpreted by: OSCAR WILL MD Electronically signed by:OSCAR WILL MD 07/12/167 NAME: RNEATO NEGRON [facility] REC#: [id number] PT STATUS: REG ER : 1965 PHYSICIAN: ALINA GUEVARA MD ADMIT DATE: 07/12/16/ER Signed Date of Exam: 07/12/16 CT ANGIO CHEST W PROCEDURE: CT angiography of the chest with contrast. TECHNIQUE: Multiple contiguous axial images were obtained through the chest after uneventful bolus administration of intravenous contrast. Reconstructed CTA MIP acquisitions were also performed. DATE: July 12, 2016. COMPARISON: Chest radiograph from July 12, 2016. CT chest from October 01, 2014. INDICATION: 3s-year-old female, left-sided chest pain for one month. FINDINGS: There are patchy areas of groundglass attenuation in the right upper lobe on axial image 51 and adjacent sequential images. There is also patchy groundglass attenuation in the right middle lobe. There are subtle areas of patchy groundglass attenuation in the right lower lobe. There are patchy areas of prominently groundglass attenuation in the left upper lobe with mild linear opacities. There is no identified solitary pulmonary nodule. There is nonspecific bronchial wall thickening, bilaterally. There is opacification within the left lower lobe subsegmental bronchus on axial image 94. There is no identified pneumothorax. There is no pleural effusion. There is a left lower lobe subsegmental pulmonary embolus on axial image 72. There is a right lower lobe segmental and subsegmental pulmonary embolus seen on axial image 79 and adjacent sequential images. There is an additional right lower lobe and subsegmental pulmonary embolus on image 81, more anteriorly. The main pulmonary artery measures 2.7 cm in diameter which is within normal limits in diameter. The heart is not enlarged. There is no pericardial effusion. There is no identified abnormally enlarged mediastinal, hilar or axillary lymph node which meets CT size criteria for adenopathy. Limited visualized portions of the upper abdomen are unremarkable. There is a chronic appearing left lower rib fracture. There is no identified acute bony abnormality. IMPRESSION: CT chest: 1. Segmental and subsegmental bilateral pulmonary emboli, as described above. No abnormal dilation of the main pulmonary artery to particularly suggest elevated pressures. 2. Patchy multifocal areas of predominantly groundglass lung attenuation. This potentially could relate to findings of chronic pulmonary embolism. Differential diagnostic considerations would include multifocal pneumonia and atypical infectious etiologies in the differential diagnosis or pneumonitis such as hypersensitive pneumonitis. Clinical correlation may be helpful. Dictated by: Dictated on workstation # [id number] Dict: 07/12/161947 Trans: 07/12/162005 [id number] Interpreted by: GEOVANNA WILDER MD Electronically signed by:GEOVANNA WILDER MD 07/12/162008 Assessment/Plan Assessment/Plan Admission Dx 1. Altered mental status 2. Bilateral pulmonary embolism 3. Pneumonia 4. Seizure disorder 5. Left foot fractures of the second and fourth phalanx age undetermined Plan 1. Altered mental status -Patient to be admitted to the intensive care unit for further monitoring 07/14--resolved 2. Bilateral pulmonary embolism -Patient started on oral anticoagulation, Eliquis, therapy in the ED. 07/14 ultimately discharged to home on Eliquis 3. Pneumonia -She was initiated on IV ceftriaxone, IV Zithromax, IV Levaquin in the emergency department 07/14 continue with IV ceftriaxone, Zithromax and Levaquin. -Transferred to [facility] 4. Seizure disorder -She will be maintained on her seizure medication Lamictal as well as carbamazepine. She also has Klonopin available. 5. Left foot fractures of the second and fourth phalanx age undetermined Diagnosis/Problems: Clinical Quality Measures DVT/VTE Risk/Contraindication: Risk Factor Score Per Nursin RFS Level Per Nursing on Admit: 4+=Very High Pneumonia: Pseudomonal Risk: No known risk LIZ CROWLEY MD Jul 14, 2016 10:12
--- NOTE | 2016-07-14 11:52 | Diagnostic Imaging Report ---
INDICATION: Pneumonia, pulmonary embolism. TECHNIQUE: Single view chest 5:29 AM. CORRELATION STUDY: 07/13/2016 FINDINGS: Heart size remains enlarged. Severity of pulmonary vascular congestion and perihilar edema has improved since prior study. Congestive changes do remain. Prominent interstitial markings perhaps slightly increased from prior study. Minimal atelectasis left lung base. No significant pneumothorax. Overlying monitor leads. IMPRESSION: 1. Mixed findings with the severity of pulmonary vascular congestion appearing improved. However, interstitial markings do appear to be slightly increased and reflective of increasing interstitial edema. Followup imaging recommended. Dictated by: Dictated on workstation # [id number]
[2016-07-14] MEDS: ATORVASTATIN 40 MG (LIPITOR) TABLET PO SCH (21:59)
[2016-07-14] MEDS: HYDROcodone/APAP 5 MG/325 MG (LORTAB) TAB PO PRN (22:00)
[2016-07-14] MEDS: cefTRIAXone INJECTION 1,000 MG in NS (IVPB) 50 ML IV SCH (22:00)
[2016-07-14] MEDS: AMITRIPTYLINE 50 MG (ELAVIL) TAB PO SCH (22:00)
[2016-07-14] MEDS: AZITHROMYCIN INJECTION 500 MG in NS (IVPB) 250 ML IV SCH (22:05)
[2016-07-15 04:00] VITALS: BP 141/73
[2016-07-15] MEDS: MULTIVIT W/MINERALS TAB (THERAGRAN M) PO SCH (06:00)
[2016-07-15 08:00] VITALS: BP 172/84
[2016-07-15] MEDS: CALCIUM CARB + VIT D 600 MG (CALCARB + D) TAB PO SCH (09:21)
[2016-07-15] MEDS: CYCLOBENZAPRINE 10 MG (FLEXERIL) TAB PO SCH (09:21)
[2016-07-15] MEDS: PANTOPRAZOLE 40 MG (PROTONIX) TAB PO SCH ×2 (09:21→21:27)
[2016-07-15] MEDS: DOCUSATE CALCIUM 240 MG (SURFAK) CAP PO SCH (09:21)
[2016-07-15] MEDS: carBAMazepine 200 MG (TEGretol) TAB PO SCH ×3 (09:21→21:27)
[2016-07-15] MEDS: clonazePAM 1 MG (KlonoPIN) TAB PO SCH ×4 (09:21→21:28)
[2016-07-15] MEDS: APIXABAN 5 MG (ELIQUIS) TABLET PO SCH ×2 (09:21→21:31)
[2016-07-15] MEDS: GABAPENTIN 400 MG (NEURONTIN) CAP PO SCH ×3 (09:22→21:26)
[2016-07-15] MEDS: HYDROcodone/APAP 5 MG/325 MG (LORTAB) TAB PO PRN (09:27)
[2016-07-15] MEDS ORDERED: CEPH500C PO (10:16)
[2016-07-15] MEDS ORDERED: SERT100T8 PO (10:16)
[2016-07-15] MEDS ORDERED: BACL10TA PO (10:16)
[2016-07-15] MEDS ORDERED: GABA800T2 PO (10:16)
[2016-07-15] MEDS ORDERED: LAMO25TA PO (10:16)
[2016-07-15] MEDS ORDERED: TOPI50TA13 PO (10:16)
[2016-07-15] MEDS ORDERED: CARB200T6 PO (10:16)
[2016-07-15] MEDS ORDERED: DULO60CA58 PO (10:16)
[2016-07-15] MEDS ORDERED: AMIT150T PO (10:16)
[2016-07-15] MEDS ORDERED: HYDR-700 PO (10:22)
[2016-07-15] MEDS ORDERED: BUSP10TA95 PO (10:22)
[2016-07-15 12:00] VITALS: BP 119/67
[2016-07-15] MEDS ORDERED: busPIRone 10 MG (BUSPAR) TAB PO PRN (12:00)
[2016-07-15] MEDS: BACLOFEN 10 MG (LIORESAL) TAB PO SCH ×2 (13:47→21:26)
--- NOTE | 2016-07-15 14:42 | Progress Note (SOAP) ---
Subjective Subjective/Events-last exam Afebrile. No hypoxia. 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 She states she has fired [facility] outpatient and does not want to see behavioral health anymore. She notes she was having seizures and hitting her furniture, states she will need to rearrange her furniture. She talks about horses and dogs behind her house and that she is big enough to take care of it if someone mistreats them. She notes that she gets scripts sent to her by the [place]. When asked if she drives, she states she has a brand new 2012 adriane and that she does have money to lemon picker scripts, but even with much coaxing cannot clarify what pharmacy she would want to get medication from. She lives alone. She has been noted by nurses to come out of her room in a state of undress and has been yelling loudly and not with clear thinking. Objective Exam Last Set of Vital Signs Vital Signs Date Time Temp Pulse Resp B/P Pulse Ox O2 Delivery O2 Flow Rate FiO2 07/15/16 09:00 93 07/15/16 08:00 96.4 20 172/84 Room Air 07/15/16 04:00 85 Capillary Refill : Less Than 3 SecondsLess Than 3 Seconds I&O Intake and Output 07/15/16 00:00 Intake Total 3690 ml Output Total 1200 ml Balance 2490 ml Intake Oral 2700 ml IV Total 990 ml Output Urine Total 1200 ml # Voids 1 General: Alert Lungs: Clear to Auscultation, Normal Air Movement Heart: Regular Rate, No Murmurs Psych/Mental Status: Other (See HPI) Results/Procedures Lab Microbiology 07/12/16 Blood Culture - Preliminary, Resulted No growth Radiology NAME: RENATO NEGRON [facility] REC#: [id number] PT STATUS: ADM IN : 1965 PHYSICIAN: KAMRON SY MD ADMIT DATE: 07/12/16/ICU Signed Date of Exam: 07/12/16 CT HEAD/FACE/CERVICAL WO PROCEDURE: CT head, face, and cervical spine without contrast. TECHNIQUE: Multiple contiguous axial images were obtained through the head, neck, and facial bones without the use of intravenous contrast. Sagittal and coronal reformations through the cervical spine and facial bones were also performed. INDICATION: Seizures. COMPARISON: MRI brain without and with IV contrast 02/28/2016. FINDINGS: CT head including maxillofacial: No intracranial hemorrhage, mass effect, hydrocephalus or extra-axial fluid collections. No CT evidence of acute infarction. Intracranial vascular calcifications. Osseous structures are intact including the maxillofacial structures. The visualized paranasal sinuses, mastoids and orbits are negative. CT cervical spine: Moderate to advanced degenerative endplate changes are most marked at C5-C6. Normal alignment. No fractures. Vertebral body heights are maintained. No high-grade spinal canal narrowing on this noncontrast exam. The visualized paravertebral soft tissues are unremarkable. IMPRESSION: No acute intracranial or cervical spine CT findings. No maxillofacial fractures. Dictated by: Dictated on workstation # [id number] Dict: 07/12/161720 Trans: 07/12/162144 [id number] Interpreted by: OSCAR WILL MD Electronically signed by:OSCAR WILL MD 07/12/162146 NAME: RENATO NEGRON [facility] REC#: [id number] PT STATUS: REG ER : 1965 PHYSICIAN: ALINA GUEVARA MD ADMIT DATE: 07/12/16/ER Signed Date of Exam: 07/12/16 CT ANGIO CHEST W PROCEDURE: CT angiography of the chest with contrast. TECHNIQUE: Multiple contiguous axial images were obtained through the chest after uneventful bolus administration of intravenous contrast. Reconstructed CTA MIP acquisitions were also performed. DATE: July 12, 2016. COMPARISON: Chest radiograph from July 12, 2016. CT chest from October 01, 2014. INDICATION: 3s-year-old female, left-sided chest pain for one month. FINDINGS: There are patchy areas of groundglass attenuation in the right upper lobe on axial image 51 and adjacent sequential images. There is also patchy groundglass attenuation in the right middle lobe. There are subtle areas of patchy groundglass attenuation in the right lower lobe. There are patchy areas of prominently groundglass attenuation in the left upper lobe with mild linear opacities. There is no identified solitary pulmonary nodule. There is nonspecific bronchial wall thickening, bilaterally. There is opacification within the left lower lobe subsegmental bronchus on axial image 94. There is no identified pneumothorax. There is no pleural effusion. There is a left lower lobe subsegmental pulmonary embolus on axial image 72. There is a right lower lobe segmental and subsegmental pulmonary embolus seen on axial image 79 and adjacent sequential images. There is an additional right lower lobe and subsegmental pulmonary embolus on image 81, more anteriorly. The main pulmonary artery measures 2.7 cm in diameter which is within normal limits in diameter. The heart is not enlarged. There is no pericardial effusion. There is no identified abnormally enlarged mediastinal, hilar or axillary lymph node which meets CT size criteria for adenopathy. Limited visualized portions of the upper abdomen are unremarkable. There is a chronic appearing left lower rib fracture. There is no identified acute bony abnormality. IMPRESSION: CT chest: 1. Segmental and subsegmental bilateral pulmonary emboli, as described above. No abnormal dilation of the main pulmonary artery to particularly suggest elevated pressures. 2. Patchy multifocal areas of predominantly groundglass lung attenuation. This potentially could relate to findings of chronic pulmonary embolism. Differential diagnostic considerations would include multifocal pneumonia and atypical infectious etiologies in the differential diagnosis or pneumonitis such as hypersensitive pneumonitis. Clinical correlation may be helpful. Dictated by: Dictated on workstation # [id number] Dict: 07/12/161947 Trans: 07/12/162005 [facility] [id number] Interpreted by: GEOVANNA WILDER MD Electronically signed by:GEOVANNA WILDER MD 07/12/162008 Assessment/Plan Assessment/Plan Admission Dx 1. Altered mental status 2. Bilateral pulmonary embolism 3. Pneumonia 4. Seizure disorder 5. Left foot fractures of the second and fourth phalanx age undetermined Plan 1. Altered mental status -Patient to be admitted to the intensive care unit for further monitoring 07/14--resolved 07/15- still having at least intermittent episodes of unclear thinking and difficulty sustaining conversation, unclear if baseline, per her outpatient provider, she does have difficulty at times with reorienting from fixated subjects such as requesting tramadol for her trigeminal neuralgia. Will have behavioral health meet with her to determine if further treatment should be considered inpatient. 2. Bilateral pulmonary embolism -Patient started on oral anticoagulation, Eliquis, therapy in the ED. 07/15 ultimately will discharged to home on Eliquis- it is noted that Eliquis has an interaction (decreases concentration of Eliquis) with her seizure/mood stabilizer meds but given her erratic behavior and her lack of follow-up plans, it is not safe for her to be on warfarin which may lead to decrease in seizure med concentrations and if she is to have unwitnessed seizures at home, she may also be at risk for bleeding, particularly as she at this time does not want to establish with a primary provider and therefore has no way of monitoring INR. 3. Pneumonia -She was initiated on IV ceftriaxone, IV Zithromax, IV Levaquin in the emergency department 07/14 continue with IV ceftriaxone, Zithromax and Levaquin. -Transferred to [facility] 07/15 completing course of azithromycin 4. Seizure disorder -She will be maintained on her seizure medication Lamictal as well as carbamazepine. She also has Klonopin available. 07/15 carbamazepine level low, was started on carbamazepine 200 mg BID on admit, however on home med reconcilation dose is noted to be TID, will increase today; lamotrigine level pending 5. Left foot fractures of the second and fourth phalanx age undetermined- may be acute or subacute -Boot given in ER, will consult Orthopedics for follow-up plan DVT ppx- on Eliquis, had PE on admission Diagnosis/Problems: Clinical Quality Measures DVT/VTE Risk/Contraindication: Risk Factor Score Per Nursin RFS Level Per Nursing on Admit: 4+=Very High Pneumonia: Pseudomonal Risk: No known risk BRUNA GOODRICH MD Jul 15, 2016 2:42 pm
[2016-07-15 16:15] VITALS: BP 151/68
[2016-07-15 16:38] LABS: MEAN PLATELET VOLUME 9.3 FL (7.4-10.4); RED BLOOD COUNT 3.66 10^6/uL (4.35-5.85); RED CELL DISTRIBUTION WIDTH 13.3 % (10.0-14.5)
[2016-07-15 16:57] LABS: ALANINE AMINOTRANSFERASE 13 U/L (0-55); ALBUMIN 3.1 G/DL (3.2-4.5); ANION GAP 10 MMOL/L (5-14); ASPARTATE AMINO TRANSFERASE 16 U/L (5-34); BILIRUBIN,TOTAL 0.1 MG/DL (0.1-1.0); BLOOD UREA NITROGEN 7 MG/DL (7-18); BUN/CREATININE RATIO 10; CALCIUM 8.2 MG/DL (8.5-10.1); CARBON DIOXIDE 26 MMOL/L (21-32); CHLORIDE 108 MMOL/L (98-107); CREATININE SERUM 0.72 MG/DL (0.60-1.30); GFR ESTIMATED > 60; GLUCOSE 82 MG/DL (70-105); POTASSIUM 3.8 MMOL/L (3.6-5.0); SODIUM 144 MMOL/L (135-145); TOTAL PROTEIN 5.5 G/DL (6.4-8.2)
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
[2016-07-15 20:00] VITALS: BP 178/84
[2016-07-15] MEDS: lamoTRIgine 25 MG (LaMICtal) TAB PO SCH (21:27)
[2016-07-15] MEDS: AZITHROMYCIN 250 MG TAB (ZITHROMAX) PO SCH (21:28)
[2016-07-15] MEDS: ATORVASTATIN 20 MG (LIPITOR) TABLET PO SCH (21:28)
[2016-07-15] MEDS: AMITRIPTYLINE 150 MG (ELAVIL) TABLET PO SCH (21:28)
[2016-07-16] VITALS: BP 183/88
[2016-07-16 08:00] VITALS: BP 168/70
[2016-07-16] MEDS ORDERED: CATHETER FLUSH 10 ML SYR IV PRN (08:00)
[2016-07-16] MEDS: APIXABAN 5 MG (ELIQUIS) TABLET PO SCH ×2 (08:16→21:01)
[2016-07-16] MEDS: GABAPENTIN 400 MG (NEURONTIN) CAP PO SCH ×3 (08:16→21:02)
[2016-07-16] MEDS: clonazePAM 1 MG (KlonoPIN) TAB PO SCH ×4 (08:16→21:01)
[2016-07-16] MEDS: PANTOPRAZOLE 40 MG (PROTONIX) TAB PO SCH ×2 (08:16→21:01)
[2016-07-16] MEDS: lamoTRIgine 25 MG (LaMICtal) TAB PO SCH ×2 (08:17→21:01)
[2016-07-16] MEDS: BACLOFEN 10 MG (LIORESAL) TAB PO SCH ×3 (08:17→21:02)
[2016-07-16] MEDS: carBAMazepine 200 MG (TEGretol) TAB PO SCH ×3 (08:17→21:02)
[2016-07-16] MEDS: DULoxetine 30 MG (CYMBALTA) CAP PO SCH (08:18)
[2016-07-16] MEDS: MULTIVIT W/MINERALS TAB (THERAGRAN M) PO SCH (08:18)
[2016-07-16] MEDS: CALCIUM CARB + VIT D 600 MG (CALCARB + D) TAB PO SCH (08:18)
[2016-07-16] MEDS: DOCUSATE CALCIUM 240 MG (SURFAK) CAP PO SCH (08:18)
[2016-07-16 08:26] LABS: MEAN PLATELET VOLUME 9.2 FL (7.4-10.4); RED BLOOD COUNT 3.72 10^6/uL (4.35-5.85); RED CELL DISTRIBUTION WIDTH 13.3 % (10.0-14.5); WHITE BLOOD COUNT 6.5 10^3/uL (4.3-11.0)
[2016-07-16 08:43] LABS: ALANINE AMINOTRANSFERASE 13 U/L (0-55); ALBUMIN 3.1 G/DL (3.2-4.5); ANION GAP 9 MMOL/L (5-14); ASPARTATE AMINO TRANSFERASE 15 U/L (5-34); BILIRUBIN,TOTAL 0.2 MG/DL (0.1-1.0); BLOOD UREA NITROGEN 6 MG/DL (7-18); BUN/CREATININE RATIO 8; CALCIUM 8.4 MG/DL (8.5-10.1); CARBON DIOXIDE 29 MMOL/L (21-32); CHLORIDE 106 MMOL/L (98-107); CREATININE SERUM 0.72 MG/DL (0.60-1.30); GFR ESTIMATED > 60; GLUCOSE 89 MG/DL (70-105); POTASSIUM 3.7 MMOL/L (3.6-5.0); SODIUM 144 MMOL/L (135-145)
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
[2016-07-16] MEDS: LOSARTAN 25 MG (COZAAR) TAB PO SCH (11:29)
[2016-07-16 12:00] VITALS: BP 162/79
--- NOTE | 2016-07-16 15:24 | Progress Note (SOAP) ---
Subjective Subjective/Events-last exam Afebrile. Continues to have erratic behavior at times and concern remains for her ability to care for herself at home. This morning, she is not averse to considering inpatient Psychiatry stay and agrees that her thinking is not entirely clear. Objective Exam Last Set of Vital Signs Vital Signs Date Time Temp Pulse Resp B/P Pulse Ox O2 Delivery O2 Flow Rate FiO2 07/16/16 12:00 97.2 80 20 162/79 98 Room Air Capillary Refill : Less Than 3 SecondsLess Than 3 Seconds I&O Intake and Output 07/16/16 00:00 Intake Total 1152 ml Output Total 450 ml Balance 702 ml Intake Oral 852 ml IV Total 300 ml Output Urine Total 450 ml # Voids 4 General: Alert, No Acute Distress Lungs: Clear to Auscultation, Normal Air Movement Heart: Regular Rate, No Murmurs Results/Procedures Lab Laboratory Tests 07/15/16 16:20: Alanine Aminotransferase (ALT/SGPT) 13, Albumin 3.1L, Alkaline Phosphatase 79, Anion Gap 10, Aspartate Amino Transf (AST/SGOT) 16, BUN/Creatinine Ratio 10, Blood Urea Nitrogen 7, Calcium Level 8.2L, Carbon Dioxide Level 26, Chloride Level 108H, Creatinine 0.72, Estimat Glomerular Filtration Rate > 60, Glucose Level 82, Hematocrit 36, Hemoglobin 11.3L, Mean Corpuscular Hemoglobin 31, Mean Corpuscular Hemoglobin Concent 31L, Mean Corpuscular Volume 99, Mean Platelet Volume 9.3, Platelet Count 364, Potassium Level 3.8, Red Blood Count 3.66L, Red Cell Distribution Width 13.3, Sodium Level 144, Total Bilirubin 0.1, Total Protein 5.5L, White Blood Count 7.0 07/16/16 08:13: Alanine Aminotransferase (ALT/SGPT) 13, Albumin 3.1L, Alkaline Phosphatase 84, Anion Gap 9, Aspartate Amino Transf (AST/SGOT) 15, BUN/Creatinine Ratio 8, Blood Urea Nitrogen 6L, Calcium Level 8.4L, Carbon Dioxide Level 29, Chloride Level 106, Creatinine 0.72, Estimat Glomerular Filtration Rate > 60, Glucose Level 89, Hematocrit 36, Hemoglobin 11.6, Mean Corpuscular Hemoglobin 31, Mean Corpuscular Hemoglobin Concent 32, Mean Corpuscular Volume 98, Mean Platelet Volume 9.2, Platelet Count 374, Potassium Level 3.7, Red Blood Count 3.72L, Red Cell Distribution Width 13.3, Sodium Level 144, Total Bilirubin 0.2, Total Protein 5.0L, White Blood Count 6.5 Microbiology 07/12/16 Blood Culture - Preliminary, Resulted No growth Radiology NAME: RENATO NGERON [facility] REC#: [id number] PT STATUS: ADM IN : 1965 PHYSICIAN: KAMRON SY MD ADMIT DATE: 07/12/16/ICU Signed Date of Exam: 07/12/16 CT HEAD/FACE/CERVICAL WO PROCEDURE: CT head, face, and cervical spine without contrast. TECHNIQUE: Multiple contiguous axial images were obtained through the head, neck, and facial bones without the use of intravenous contrast. Sagittal and coronal reformations through the cervical spine and facial bones were also performed. INDICATION: Seizures. COMPARISON: MRI brain without and with IV contrast 02/28/2016. FINDINGS: CT head including maxillofacial: No intracranial hemorrhage, mass effect, hydrocephalus or extra-axial fluid collections. No CT evidence of acute infarction. Intracranial vascular calcifications. Osseous structures are intact including the maxillofacial structures. The visualized paranasal sinuses, mastoids and orbits are negative. CT cervical spine: Moderate to advanced degenerative endplate changes are most marked at C5-C6. Normal alignment. No fractures. Vertebral body heights are maintained. No high-grade spinal canal narrowing on this noncontrast exam. The visualized paravertebral soft tissues are unremarkable. IMPRESSION: No acute intracranial or cervical spine CT findings. No maxillofacial fractures. Dictated by: Dictated on workstation # [id number] Dict: 07/12/16 172 Trans: 07/12/162144 [facility] [id number] Interpreted by: OSCAR WILL MD Electronically signed by:OSCAR WILL MD 07/12/16 2147 NAME: RENATO NEGRON [facility] REC#: [id number] PT STATUS: REG ER : 1965 PHYSICIAN: ALINA GUEVARA MD ADMIT DATE: 07/12/16/ER Signed Date of Exam: 07/12/16 CT ANGIO CHEST W PROCEDURE: CT angiography of the chest with contrast. TECHNIQUE: Multiple contiguous axial images were obtained through the chest after uneventful bolus administration of intravenous contrast. Reconstructed CTA MIP acquisitions were also performed. DATE: July 12, 2016. COMPARISON: Chest radiograph from July 12, 2016. CT chest from October 01, 2014. INDICATION: 3s-year-old female, left-sided chest pain for one month. FINDINGS: There are patchy areas of groundglass attenuation in the right upper lobe on axial image 51 and adjacent sequential images. There is also patchy groundglass attenuation in the right middle lobe. There are subtle areas of patchy groundglass attenuation in the right lower lobe. There are patchy areas of prominently groundglass attenuation in the left upper lobe with mild linear opacities. There is no identified solitary pulmonary nodule. There is nonspecific bronchial wall thickening, bilaterally. There is opacification within the left lower lobe subsegmental bronchus on axial image 94. There is no identified pneumothorax. There is no pleural effusion. There is a left lower lobe subsegmental pulmonary embolus on axial image 72. There is a right lower lobe segmental and subsegmental pulmonary embolus seen on axial image 79 and adjacent sequential images. There is an additional right lower lobe and subsegmental pulmonary embolus on image 81, more anteriorly. The main pulmonary artery measures 2.7 cm in diameter which is within normal limits in diameter. The heart is not enlarged. There is no pericardial effusion. There is no identified abnormally enlarged mediastinal, hilar or axillary lymph node which meets CT size criteria for adenopathy. Limited visualized portions of the upper abdomen are unremarkable. There is a chronic appearing left lower rib fracture. There is no identified acute bony abnormality. IMPRESSION: CT chest: 1. Segmental and subsegmental bilateral pulmonary emboli, as described above. No abnormal dilation of the main pulmonary artery to particularly suggest elevated pressures. 2. Patchy multifocal areas of predominantly groundglass lung attenuation. This potentially could relate to findings of chronic pulmonary embolism. Differential diagnostic considerations would include multifocal pneumonia and atypical infectious etiologies in the differential diagnosis or pneumonitis such as hypersensitive pneumonitis. Clinical correlation may be helpful. Dictated by: Dictated on workstation # [id number] Dict: 07/12/16 1948 Trans: 07/12/162005 [facility] [id number] Interpreted by: GEOVANNA WILDER MD Electronically signed by:GEOVANNA WILDER MD 07/12/162008 Assessment/Plan Assessment/Plan Admission Dx 1. Altered mental status 2. Bilateral pulmonary embolism 3. Pneumonia 4. Seizure disorder 5. Left foot fractures of the second and fourth phalanx age undetermined Plan 1. Altered mental status -Patient to be admitted to the intensive care unit for further monitoring 07/14--resolved 07/15- still having at least intermittent episodes of unclear thinking and difficulty sustaining conversation, unclear if baseline, per her outpatient provider, she does have difficulty at times with reorienting from fixated subjects such as requesting tramadol for her trigeminal neuralgia. Will have behavioral health meet with her to determine if further treatment should be considered inpatient. 07/16- Psychiatry also concerned about her ability to care for self and daughter reports recent inpatient Psych stay through [facility], will look into transfer to [facility] in [place] where she was prior. 2. Bilateral pulmonary embolism -Patient started on oral anticoagulation, Eliquis, therapy in the ED. 07/15 ultimately will discharged to home on Eliquis- it is noted that Eliquis has an interaction (decreases concentration of Eliquis) with her seizure/mood stabilizer meds but given her erratic behavior and her lack of follow-up plans, it is not safe for her to be on warfarin which may lead to decrease in seizure med concentrations and if she is to have unwitnessed seizures at home, she may also be at risk for bleeding, particularly as she at this time does not want to establish with a primary provider and therefore has no way of monitoring INR. 3. Pneumonia -She was initiated on IV ceftriaxone, IV Zithromax, IV Levaquin in the emergency department 07/14 continue with IV ceftriaxone, Zithromax and Levaquin. -Transferred to [facility] 07/15 completing course of azithromycin 4. Seizure disorder -She will be maintained on her seizure medication Lamictal as well as carbamazepine. She also has Klonopin available. 07/15 carbamazepine level low, was started on carbamazepine 200 mg BID on admit, however on home med reconcilation dose is noted to be TID, will increase today; lamotrigine level pending 07/16- note topiramate level also low, concern that she was not taking medications at home as prescribed, lamotrigine level still pending, no seizure activity inpatient 5. Left foot fractures of the second and fourth phalanx age undetermined- may be acute or subacute -Boot given in ER, will consult Orthopedics for follow-up plan 07/16- Appreciate Ortho recommendations, chronic malunion, activity as tolerated DVT ppx- on Eliquis, had PE on admission Diagnosis/Problems: Clinical Quality Measures DVT/VTE Risk/Contraindication: Risk Factor Score Per Nursin RFS Level Per Nursing on Admit: 4+=Very High Pneumonia: Pseudomonal Risk: No known risk BRUNA GOODRICH MD Jul 16, 2016 3:23 pm
[2016-07-16 16:38] VITALS: BP 153/74
[2016-07-16] MEDS: hydrOXYzine (VISTARIL) 25 MG CAP PO PRN (16:56)
[2016-07-16] MEDS: NICOTINE 21 MG (NICODERM) PATCH TD SCH (18:50)
[2016-07-16 20:00] VITALS: BP 158/64
[2016-07-16] MEDS ORDERED: HALOPERIDOL 0.5 MG (HALDOL) TAB PO ONE (21:00)
[2016-07-16] MEDS ORDERED: HALOPERIDOL 5 MG/ML (HALDOL) AMP IM PRN (21:00)
[2016-07-16] MEDS: AMITRIPTYLINE 150 MG (ELAVIL) TABLET PO SCH (21:02)
[2016-07-16] MEDS: ATORVASTATIN 20 MG (LIPITOR) TABLET PO SCH (21:02)
[2016-07-16] MEDS ORDERED: HALOPERIDOL 2 MG (HALDOL) TABLET ONE (21:14)
[2016-07-16] MEDS: AZITHROMYCIN 250 MG TAB (ZITHROMAX) PO SCH (22:19)
[2016-07-17] VITALS: BP 166/80
[2016-07-17 04:00] VITALS: BP 139/85
[2016-07-17] MEDS: MULTIVIT W/MINERALS TAB (THERAGRAN M) PO SCH (06:00)
[2016-07-17 07:58] VITALS: BP 134/66
[2016-07-17] MEDS: NICOTINE 21 MG (NICODERM) PATCH TD SCH (10:11)
[2016-07-17] MEDS: PANTOPRAZOLE 40 MG (PROTONIX) TAB PO SCH ×2 (10:11→20:16)
[2016-07-17] MEDS: BACLOFEN 10 MG (LIORESAL) TAB PO SCH ×3 (10:11→20:16)
[2016-07-17] MEDS: clonazePAM 1 MG (KlonoPIN) TAB PO SCH ×4 (10:11→20:16)
[2016-07-17] MEDS: DULoxetine 30 MG (CYMBALTA) CAP PO SCH (10:11)
[2016-07-17] MEDS: DOCUSATE CALCIUM 240 MG (SURFAK) CAP PO SCH (10:12)
[2016-07-17] MEDS: CALCIUM CARB + VIT D 600 MG (CALCARB + D) TAB PO SCH (10:12)
[2016-07-17] MEDS: LOSARTAN 25 MG (COZAAR) TAB PO SCH (10:12)
[2016-07-17] MEDS: APIXABAN 5 MG (ELIQUIS) TABLET PO SCH ×2 (10:12→20:17)
[2016-07-17] MEDS: carBAMazepine 200 MG (TEGretol) TAB PO SCH ×3 (10:12→20:16)
[2016-07-17] MEDS: GABAPENTIN 400 MG (NEURONTIN) CAP PO SCH ×3 (10:12→20:16)
[2016-07-17] MEDS: PATCH REMOVAL TP SCH (10:13)
[2016-07-17] MEDS: lamoTRIgine 25 MG (LaMICtal) TAB PO SCH ×2 (10:13→20:17)
[2016-07-17 12:00] VITALS: BP 142/81
--- NOTE | 2016-07-17 14:05 | Physical Therapy Evaluation ---
PT Evaluation-General Medical Diagnosis Admission Date Jul 12, 2016 at 20:41 Medical Diagnosis: AMS, bilateral pulmonary embolism, pneumonia, left foot fractures Onset Date: Jul 12, 2016 Therapy Diagnosis Therapy Diagnosis: impaired mobility, balance Height/Weight Height (Feet): 5 Height (Inches): 6.00 Weight (Pounds): 209 Weight (Ounces): 4.8 Precautions Precautions/Isolations: Seizure, Fall Prevention, Standard Precautions Weight Bear Status Weight Bearing Restriction: Weight Bearing/Tolerated Location Restriction: L LE Referral Physician: Jocelyn Vasquez MD Reason for Referral: Evaluation/Treatment Medical History Additional Medical History smoker, seizure disorder, trigeminal neuralgia, TBI, urgency incontinence, chronic back pain, anxiety, PTSD, bipolar, depression, surg (, orthopedic, tubal ligation) Current History Patient went to ER after having a seizure Social History Home: Single Level Current Living Status: Alone Entry Into Home: Stairs With Railing PT Steps Into Home: 3 Prior/Core FIM Prior Level of Function Functional [place] Measure 0=Not Assessed/NA 4=Minimal Assistance 1=Total Assistance 5=Supervision or Setup 2=Maximal Assistance 6=Modified [place] 3=Moderate Assistance 7=Complete [place] Bed Mobility: 6 Transfers (B,C,W/C) (FIM): 6 Gait: 6 Patient states she used a single point cane PT Evaluation-Current Subjective Patient sitting EOB pre tx, she is confused and has a nursing sitter. Patient states she has 10/10 pain in her left foot. Pt/Family Goals "to get her balance better" Objective Patient Orientation: Confused ROM/Strength ROM Lower Extremities WNL Strenght Lower Extremities right lower extremity 4+/5 gross, left lower extremity 4/5 gross, ankle not tested Integumentary/Posture Integumentary swelling in right leg Neuromuscular (Tone, Coordination, Reflexes) decreased coordination in both legs, uncoordinated foot placement during ambulation Sensory Vision: Functional Hearing: Functional Sensation Right Lower Extremit: Intact Sensation Left Lower Extremity: Intact Sensation Lower Extremities Patient states she has decreased sensation in her left foot. Transfers Functional [place] Measure 0=Not Assessed/NA 4=Minimal Assistance 1=Total Assistance 5=Supervision or Setup 2=Maximal Assistance 6=Modified [place] 3=Moderate Assistance 7=Complete [place] Transfers (B, C, W/C) (FIM): 4 Scootin Rollin Supine to/from Sit: 6 Sit to/from Stand: 4 transfers with min assist for balance, cues for safety and foot placement Gait Mode of Locomotion: Walk Anticipated Mode of Locomotion: Walk Gait (FIM): 4 Distance: 150' Gait Level of Assist: 4 Gait Persons Needed: 1 Gait Assistive Device: FWW Comments/Gait Description min assist for balance, patient will actually tip the walker sideways Balance Sitting Static: Fair Sitting Dynamic: Fair Standing Static: Poor Standing Dynamic: Poor Special Test Comments patient will sometimes lean far backwards when sitting but not actually fall Assessment/Needs Patient has impaired mobility and balance and is at a high risk of falling. Rehab Potential: Fair PT Adolescent Counselor Goals Penitentiary Goals PT Adolescent Counselor Goals Time Frame: Jul 24, 2016 Transfers (B,C,W/C) (FIM): 5 Gait (FIM): 5 Distance: 200' Gait Level of Assist: 5 Gait Assistive Device: FWW PT Plan Problem List Problem List: Activity Tolerance, Functional Strength, Safety, Balance, Gait, Transfer Treatment/Plan Treatment Plan: Continue Plan of Care Treatment Plan: Bed Mobility, Education, Functional Activity [place], Functional Strength, Gait, Safety, Therapeutic Exercise, Transfers Treatment Duration: Jul 24, 2016 # of days/week 5-6 Visits Per Week: 5-6 Minutes/Day (M-F): 15-30 Minutes/Day (Sat/Brown): 15-30 Pt/Family Agrees w/Plan: Yes Safety Risks/Education Patient Education: Gait Training, Transfer Techniques, Correct Positioning, Safety Issues Teaching Recipient: Patient Teaching Methods: Demonstration, Discussion Response to Teaching: Reinforcement Needed Discharge Recommendations Plan Patient will perform transfers training, balance and endurance training, functional strengthening, gait training, stair training, education, to improve functional mobility and independence at home. Therapy D/C Recommendations: Home w/ Family Support Time/GCodes Time In: 1340 Time Out: 1400 Total Billed Treatment Time: 20 Total Billed Treatment 1 visit EVM 20 min ALEXANDRU RODRIGUEZ PT Jul 17, 2016 14:05
--- NOTE | 2016-07-17 15:57 | Progress Note (SOAP) ---
Subjective Subjective/Events-last exam Afebrile. Last night was agitated and wanting to go out to smoke. She fell in the shower, she states because she got her feet tangled on the concrete. Objective Exam Last Set of Vital Signs Vital Signs Date Time Temp Pulse Resp B/P Pulse Ox O2 Delivery O2 Flow Rate FiO2 07/17/16 12:00 98.2 76 20 142/81 96 Room Air Capillary Refill : Less Than 3 SecondsLess Than 3 Seconds I&O Intake and Output 07/17/16 00:00 Intake Total 2310 ml Output Total 800 ml Balance 1510 ml Intake Oral 2310 ml Output Urine Total 800 ml # Voids 6 General: Alert, Oriented X3 Lungs: Clear to Auscultation, Normal Air Movement Heart: Regular Rate, No Murmurs Psych/Mental Status: Mood NL Results/Procedures Lab Microbiology 07/12/16 Blood Culture - Preliminary, Resulted No growth Radiology NAME: RENATO NEGRON [facility] REC#: [id number] PT STATUS: ADM IN : 1965 PHYSICIAN: KAMRON SY MD ADMIT DATE: 07/12/16/ICU Signed Date of Exam: 07/12/16 CT HEAD/FACE/CERVICAL WO PROCEDURE: CT head, face, and cervical spine without contrast. TECHNIQUE: Multiple contiguous axial images were obtained through the head, neck, and facial bones without the use of intravenous contrast. Sagittal and coronal reformations through the cervical spine and facial bones were also performed. INDICATION: Seizures. COMPARISON: MRI brain without and with IV contrast 02/28/2016. FINDINGS: CT head including maxillofacial: No intracranial hemorrhage, mass effect, hydrocephalus or extra-axial fluid collections. No CT evidence of acute infarction. Intracranial vascular calcifications. Osseous structures are intact including the maxillofacial structures. The visualized paranasal sinuses, mastoids and orbits are negative. CT cervical spine: Moderate to advanced degenerative endplate changes are most marked at C5-C6. Normal alignment. No fractures. Vertebral body heights are maintained. No high-grade spinal canal narrowing on this noncontrast exam. The visualized paravertebral soft tissues are unremarkable. IMPRESSION: No acute intracranial or cervical spine CT findings. No maxillofacial fractures. Dictated by: Dictated on workstation # [id number] Dict: 07/12/16 1721 Trans: 07/12/162144 [facility] [id number] Interpreted by: OSCAR WILL MD Electronically signed by:OSCAR WILL MD 07/12/167 NAME: RENATO NEGRON [facility] REC#: [id number] PT STATUS: REG ER : 1965 PHYSICIAN: ALINA GUEVARA MD ADMIT DATE: 07/12/16/ER Signed Date of Exam: 07/12/16 CT ANGIO CHEST W PROCEDURE: CT angiography of the chest with contrast. TECHNIQUE: Multiple contiguous axial images were obtained through the chest after uneventful bolus administration of intravenous contrast. Reconstructed CTA MIP acquisitions were also performed. DATE: July 12, 2016. COMPARISON: Chest radiograph from July 12, 2016. CT chest from October 01, 2014. INDICATION: 3s-year-old female, left-sided chest pain for one month. FINDINGS: There are patchy areas of groundglass attenuation in the right upper lobe on axial image 51 and adjacent sequential images. There is also patchy groundglass attenuation in the right middle lobe. There are subtle areas of patchy groundglass attenuation in the right lower lobe. There are patchy areas of prominently groundglass attenuation in the left upper lobe with mild linear opacities. There is no identified solitary pulmonary nodule. There is nonspecific bronchial wall thickening, bilaterally. There is opacification within the left lower lobe subsegmental bronchus on axial image 94. There is no identified pneumothorax. There is no pleural effusion. There is a left lower lobe subsegmental pulmonary embolus on axial image 72. There is a right lower lobe segmental and subsegmental pulmonary embolus seen on axial image 79 and adjacent sequential images. There is an additional right lower lobe and subsegmental pulmonary embolus on image 81, more anteriorly. The main pulmonary artery measures 2.7 cm in diameter which is within normal limits in diameter. The heart is not enlarged. There is no pericardial effusion. There is no identified abnormally enlarged mediastinal, hilar or axillary lymph node which meets CT size criteria for adenopathy. Limited visualized portions of the upper abdomen are unremarkable. There is a chronic appearing left lower rib fracture. There is no identified acute bony abnormality. IMPRESSION: CT chest: 1. Segmental and subsegmental bilateral pulmonary emboli, as described above. No abnormal dilation of the main pulmonary artery to particularly suggest elevated pressures. 2. Patchy multifocal areas of predominantly groundglass lung attenuation. This potentially could relate to findings of chronic pulmonary embolism. Differential diagnostic considerations would include multifocal pneumonia and atypical infectious etiologies in the differential diagnosis or pneumonitis such as hypersensitive pneumonitis. Clinical correlation may be helpful. Dictated by: Dictated on workstation # [id number] Dict: 07/12/161947 Trans: 07/12/162005 P[facility] [id number] Interpreted by: GEOVANNA WILDER MD Electronically signed by:GEOVANNA WILDER MD 07/12/162008 Assessment/Plan Assessment/Plan Admission Dx 1. Altered mental status 2. Bilateral pulmonary embolism 3. Pneumonia 4. Seizure disorder 5. Left foot fractures of the second and fourth phalanx age undetermined Plan 1. Altered mental status -Patient to be admitted to the intensive care unit for further monitoring 07/14--resolved 07/15- still having at least intermittent episodes of unclear thinking and difficulty sustaining conversation, unclear if baseline, per her outpatient provider, she does have difficulty at times with reorienting from fixated subjects such as requesting tramadol for her trigeminal neuralgia. Will have behavioral health meet with her to determine if further treatment should be considered inpatient. 07/16- Psychiatry also concerned about her ability to care for self and daughter reports recent inpatient Psych stay through [facility], will look into transfer to [facility] in [place] where she was prior. 07/17- Much improved, she is oriented and she notes that she has home health that she can call if she needs to run errands. They used to set up her meds, but she says she asked them to stop because they were taking them. 2. Bilateral pulmonary embolism -Patient started on oral anticoagulation, Eliquis, therapy in the ED. 07/15 ultimately will discharged to home on Eliquis- it is noted that Eliquis has an interaction (decreases concentration of Eliquis) with her seizure/mood stabilizer meds but given her erratic behavior and her lack of follow-up plans, it is not safe for her to be on warfarin which may lead to decrease in seizure med concentrations and if she is to have unwitnessed seizures at home, she may also be at risk for bleeding, particularly as she at this time does not want to establish with a primary provider and therefore has no way of monitoring INR. 3. Pneumonia -She was initiated on IV ceftriaxone, IV Zithromax, IV Levaquin in the emergency department 07/14 continue with IV ceftriaxone, Zithromax and Levaquin. -Transferred to [facility] today 07/15 completing course of azithromycin 4. Seizure disorder -She will be maintained on her seizure medication Lamictal as well as carbamazepine. She also has Klonopin available. 07/15 carbamazepine level low, was started on carbamazepine 200 mg BID on admit, however on home med reconcilation dose is noted to be TID, will increase today; lamotrigine level pending 07/16- note topiramate level also low, concern that she was not taking medications at home as prescribed, lamotrigine level still pending, no seizure activity inpatient 5. Left foot fractures of the second and fourth phalanx age undetermined- may be acute or subacute -Boot given in ER, will consult Orthopedics for follow-up plan 07/16- Appreciate Ortho recommendations, chronic malunion, activity as tolerated 6. Falls- denies falls at home, will have PT evaluate for home safety DVT ppx- on Eliquis, had PE on admission Diagnosis/Problems: Clinical Quality Measures DVT/VTE Risk/Contraindication: Risk Factor Score Per Nursin RFS Level Per Nursing on Admit: 4+=Very High Pneumonia: Pseudomonal Risk: No known risk BRUNA GOODRICH MD Jul 17, 2016 3:57 pm
[2016-07-17 16:49] VITALS: BP 131/83
[2016-07-17 19:45] VITALS: BP 137/79
[2016-07-17] MEDS: AMITRIPTYLINE 150 MG (ELAVIL) TABLET PO SCH (20:16)
[2016-07-17] MEDS: ATORVASTATIN 20 MG (LIPITOR) TABLET PO SCH (20:16)
[2016-07-17] MEDS: HYDROcodone/APAP 5 MG/325 MG (LORTAB) TAB PO PRN (23:19)
[2016-07-17] MEDS: hydrOXYzine (VISTARIL) 25 MG CAP PO PRN (23:19)
[2016-07-18] VITALS: BP 126/84
[2016-07-18 04:00] VITALS: BP 136/86
[2016-07-18] MEDS: NICOTINE 21 MG (NICODERM) PATCH TD SCH (08:50)
[2016-07-18] MEDS: GABAPENTIN 400 MG (NEURONTIN) CAP PO SCH ×2 (08:51→13:35)
[2016-07-18] MEDS: MULTIVIT W/MINERALS TAB (THERAGRAN M) PO SCH (08:51)
[2016-07-18] MEDS: BACLOFEN 10 MG (LIORESAL) TAB PO SCH ×2 (08:51→13:35)
[2016-07-18] MEDS: APIXABAN 5 MG (ELIQUIS) TABLET PO SCH (08:51)
[2016-07-18] MEDS: CALCIUM CARB + VIT D 600 MG (CALCARB + D) TAB PO SCH (08:51)
[2016-07-18] MEDS: LOSARTAN 25 MG (COZAAR) TAB PO SCH (08:51)
[2016-07-18] MEDS: lamoTRIgine 25 MG (LaMICtal) TAB PO SCH (08:51)
[2016-07-18] MEDS: clonazePAM 1 MG (KlonoPIN) TAB PO SCH ×3 (08:52→16:53)
[2016-07-18] MEDS: DULoxetine 30 MG (CYMBALTA) CAP PO SCH (08:52)
[2016-07-18] MEDS: carBAMazepine 200 MG (TEGretol) TAB PO SCH ×2 (08:52→13:35)
[2016-07-18] MEDS: PANTOPRAZOLE 40 MG (PROTONIX) TAB PO SCH (08:52)
[2016-07-18] MEDS: DOCUSATE CALCIUM 240 MG (SURFAK) CAP PO SCH (08:52)
[2016-07-18 08:55] VITALS: BP 129/72
[2016-07-18] MEDS: PATCH REMOVAL TP SCH (09:02)
--- NOTE | 2016-07-18 10:41 | Physical Therapy Daily Note ---
PT Daily Note-Current Subjective Patient is agreeable to participate with PT. Patient states she wants to go home today. Pain Numeric Pain Scale: 0-No Pain Location: No Pain Reported Mental Status Patient Orientation: Confused Transfers Functional [place] Measure 0=Not Assessed/NA 4=Minimal Assistance 1=Total Assistance 5=Supervision or Setup 2=Maximal Assistance 6=Modified [place] 3=Moderate Assistance 7=Complete IndependenceIRFPAI Quality Coding Scale 6 Independent with activity with or without an assistive device 5 Patient requires set up or clean up by helper. Patient completes activity by themselves 4 Supervision or touching assist (CGA). [place] provide cues , steadying assist 3 The helper provides less than half the effort to complete the activity 2 The helper provides more than half the effort to complete the activity 1 Dependent. The helper does all the effort to complete an activity 7 Patient refused to complete or attempt activity 9 The patient did not perform the activity before the current illness or injury 88 Not attempted due to Medical conditions or safety concerns Transfers (B, C, W/C) (FIM): 7 Scootin Rollin Supine to/from Sit: 7 Sit to/from Stand: 7 Gait Training Gait (FIM): 7 Distance (FIM): 3=150 ft Distance: 250' Gait Level of Assist: 7 Gait Assistive Device: None slightly unsteady with self correction with minor LOB Assessment Patient requires time to lynn left CAM boot, however, is independent with ambulation. Per Dr. Vasquez, patient will dismiss to home on this date. PT Record Press Operator Goals Senior Care Goals PT Senior Care Goals Time Frame: Jul 24, 2016 Transfers (B,C,W/C) (FIM): 5 Gait (FIM): 5 Distance: 200' Gait Level of Assist: 5 Gait Assistive Device: FWW PT Plan Treatment/Plan Treatment Plan: Discontinue PT, goals met Treatment Plan: Bed Mobility, Education, Functional Activity [place], Functional Strength, Gait, Safety, Therapeutic Exercise, Transfers Treatment Duration: Jul 24, 2016 Visits Per Week: 5-6 Minutes/Day (M-F): 15-30 Minutes/Day (Sat/Brown): 15-30 Time/GCodes Time In: 1016 Time Out: 1030 Total Billed Treatment Time: 14 Total Billed Treatment 1 visit FA 14 min VIRGINIA MONTANA PT Jul 18, 2016 10:41
[2016-07-18] MEDS ORDERED: ATOR20TA66 PO (12:02)
[2016-07-18] MEDS ORDERED: APIX5TAB PO (12:02)
[2016-07-18] MEDS ORDERED: DULO60CA58 PO (12:02)
[2016-07-18] MEDS ORDERED: TOPI50TA13 PO (12:02)
[2016-07-18] MEDS ORDERED: BUSP10TA95 PO (12:02)
[2016-07-18] MEDS ORDERED: SERT100T8 PO (12:02)
[2016-07-18] MEDS ORDERED: LOSA25TA21 PO (12:02)
[2016-07-18] MEDS ORDERED: LAMO25TA PO (12:02)
--- NOTE | 2016-07-18 12:05 | Discharge Inst-Home Health ---
Discharge [facility]-Home Health Patient Instructions Patient Instructions/FU Appt: Do not drive due to your seizures. Follow up with Marla Navarro on 07/25 at 9:20 am. Follow up with Behavioral Health at [facility] on 08/14 at 2 pm. [place] DISCHARGE ORDERS Allergies: Coded Allergies: No Known Drug Allergies (Unverified , 06/09/14) Height (Feet): 5 Height (Inches): 6.00 Weight (Pounds): 209 Weight (Ounces): 4.8 Weight (Calculated Kilograms): 94.606610 Home Health Need/Face to Face Need for Home Health Cannot drive I Have Seen Pt [id number]: Yes Date of Face to Face: Jul 18, 2016 Discharged To: Home Diagnosis/Conditions HH Order: Seizure disorder, Bipolar disorder, Pulmonary embolism Yes, cannot drive Consult/Follow Up/New Order *I certify that based on my findings, the following services are medically necessary Home Health Services: Services: Nursing Services, Physical Therapy-Evaluate & Treat My clinical findings support the need for the above services; see Diagnosis. Discharge Diet: Regular Diet Daily Activity as Tolerated: Yes Discharge Medications New Medications: Apixaban (Eliquis) 5 Mg Tablet 0 PO UD Take 10 mg PO tonight and twice tomorrow (07/19), then change to 5 mg BID #60 Ref 0 TAB Atorvastatin Calcium (Atorvastatin Calcium) 20 Mg Tablet 20 MG PO HS #30 Ref 0 TAB Losartan Potassium (Losartan Potassium) 25 Mg Tablet 25 MG PO DAILY #30 Ref 0 TAB Changed Medications: Lamotrigine (Lamotrigine) 25 Mg Tablet 75 MG PO BID #180 Ref 0 TAB (Changed from: Refills: ; Removed Instructions) Sertraline HCl (Sertraline HCl) 100 Mg Tablet 150 MG PO DAILY #45 Ref 0 TAB (Changed from: Refills: ; Removed Instructions) Continued Medications: Amitriptyline HCl (Amitriptyline HCl) 150 Mg Tablet 150 MG PO HS TAB Baclofen (Baclofen) 10 Mg Tablet 10 MG PO TID TAB Buspirone HCl (Buspirone HCl) 10 Mg Tablet 10 MG PO TID FILLED #90 05-13-16 PRN ANXIETY #90 Ref 0 TAB (This prescription has been renewed) Carbamazepine (Carbamazepine) 200 Mg Tablet 200 MG PO TID LAST FILLED #90 1-3-17 TAB Duloxetine HCl (Duloxetine HCl) 60 Mg Capsule.dr 60 MG PO DAILY LAST FILLED #30 04-17-16 #30 Ref 0 CAP (This prescription has been renewed) Gabapentin (Gabapentin) 800 Mg Tablet 800 MG PO TID LAST FILLED #90 05-02-16 TAB Topiramate (Topiramate) 50 Mg Tablet 50 MG PO BID LAST FILLED #180 03-27-16 #60 Ref 0 TAB (This prescription has been renewed) Discontinued Medications: Atorvastatin Calcium (Atorvastatin Calcium) 40 Mg Tablet 20 MG PO HS LAST FILLED #45 03-04-16 TAKES 1/2 (40MG) TABLET TAB Cephalexin (Cephalexin) 500 Mg Capsule 500 MG PO Q8H 10 DAY SUPPLY FILLED 3-2-17 Days 10 CAP Hydroxyzine HCl (Hydroxyzine HCl) 25 Mg Tablet 25 MG PO TID FILLED #90 05-13-16 PRN ANXIETY TAB New, Converted or Re-Newed RX: Transmitted to Pharmacy I certify that this patient is under my care and that I, a nurse practitioner or a physician; a commercial real estate assistant working with me, had a face to face encounter that - meets the physician face to face encounter requirements with this patient as dated. Copy Copies To 1: KASSI Toussaint BETHANY N MD Jul 18, 2016 12:05 pm
[2016-07-18 12:38] LABS: LAMOTRIGINE 11.9 mcg/mL (4.0-18.0)
--- NOTE | 2016-07-18 19:13 | Discharge Summary ---
Diagnosis/Chief Complaint Date of Admission Jul 12, 2016 at 20:41 Date of Discharge Jul 18, 2016 at 17:05 Admission Diagnosis Admission Diagnosis 1. Altered mental status 2. Bilateral pulmonary embolism 3. Pneumonia 4. Seizure disorder 5. Left foot fractures of the second and fourth phalanx age undetermined Discharge Diagnosis 1. Altered mental status -Patient to be admitted to the intensive care unit for further monitoring 07/14--resolved 07/15- still having at least intermittent episodes of unclear thinking and difficulty sustaining conversation, unclear if baseline, per her outpatient provider, she does have difficulty at times with reorienting from fixated subjects such as requesting tramadol for her trigeminal neuralgia. Will have behavioral health meet with her to determine if further treatment should be considered inpatient. 07/16- Psychiatry also concerned about her ability to care for self and daughter reports recent inpatient Psych stay through [facility], will look into transfer to [facility] in [place] where she was prior. 07/17- Much improved, she is oriented and she notes that she has home health that she can call if she needs to run errands. They used to set up her meds, but she says she asked them to stop because they were taking them. 07/18- appears to be baseline, daughter will slate picker her medications for her and [facility] services are in process 2. Bilateral pulmonary embolism -Patient started on oral anticoagulation, Eliquis, therapy in the ED. 07/15 ultimately will discharged to home on Eliquis- it is noted that Eliquis has an interaction (decreases concentration of Eliquis) with her seizure/mood stabilizer meds but given her erratic behavior and her lack of follow-up plans, it is not safe for her to be on warfarin which may lead to decrease in seizure med concentrations and if she is to have unwitnessed seizures at home, she may also be at risk for bleeding, particularly as she at this time does not want to establish with a primary provider and therefore has no way of monitoring INR. Given samples of Eli[facility] on d/c from [facility] 3. Pneumonia -She was initiated on IV ceftriaxone, IV Zithromax, IV Levaquin in the emergency department 07/14 continue with IV ceftriaxone, Zithromax and Levaquin. -Transferred to [facility] 07/15 completing course of azithromycin Completed antibiotics before d/c 4. Seizure disorder -She will be maintained on her seizure medication Lamictal as well as carbamazepine. She also has Klonopin available. 07/15 carbamazepine level low, was started on carbamazepine 200 mg BID on admit, however on home med reconcilation dose is noted to be TID, will increase today; lamotrigine level pending 07/16- note topiramate level also low, concern that she was not taking medications at home as prescribed, lamotrigine level still pending, no seizure activity inpatient Refilled medications on d/c, daughter was to pick them up, discussed with patient that she cannot drive with her recent seizure activity 5. Left foot fractures of the second and fourth phalanx age undetermined- may be acute or subacute -Boot given in ER, will consult Orthopedics for follow-up plan 07/16- Appreciate Ortho recommendations, chronic malunion, activity as tolerated 6. Falls- denies falls at home, will have PT evaluate for home safety Per PT she had some poor coordination, given order for 4 point walker although she was refusing to use inpatient Chief Complaint/HPI Chief Complaint/HPI 50-year-old female presents to the emergency department during the evening of July 12, 2016 after apparently having seizure. Patient presented to the emergency room with her daughter who states that her mother does have a history of seizure disorder. At that time patient was complaining that she does not have her anxiety medications. She was apparently also complaining of facial pain due to a fall. Patient had slurred speech in the emergency department and was somewhat confused and irritable slightly. She does go to the [facility] where she typically does receive her medications. She has swelling on the left leg and foot and apparently this started about 2 weeks ago. Discharge Summary-Simple/Stand Consultations Discharge Physical Examination Allergies: Coded Allergies: No Known Drug Allergies (Unverified , 06/09/14) Vitals & I&Os Vital Sign - Last 12Hours Date Time Temp Pulse Resp B/P Pulse Ox O2 Delivery O2 Flow Rate FiO2 07/18/16 17:05 07/18/16 08:55 97.7 72 16 95 Room Air Intake and Output 07/18/16 00:00 Intake Total 1330 ml Output Total 2400 ml Balance -1070 ml General Appearance: No Acute Distress, Other (sleeping, arouses to name) Respiratory: Clear to Auscultation, Normal Air Movement Cardiovascular: Regular Rate, No Murmurs Hospital Course See final discharge diagnosis. Radiology Reviewed NAME: RENATO NEGRON [facility] REC#: [id number] PT STATUS: ADM IN : 1965 PHYSICIAN: KAMRON SY MD ADMIT DATE: 07/12/16/ICU Signed Date of Exam: 07/12/16 CT HEAD/FACE/CERVICAL WO PROCEDURE: CT head, face, and cervical spine without contrast. TECHNIQUE: Multiple contiguous axial images were obtained through the head, neck, and facial bones without the use of intravenous contrast. Sagittal and coronal reformations through the cervical spine and facial bones were also performed. INDICATION: Seizures. COMPARISON: MRI brain without and with IV contrast 02/28/2016. FINDINGS: CT head including maxillofacial: No intracranial hemorrhage, mass effect, hydrocephalus or extra-axial fluid collections. No CT evidence of acute infarction. Intracranial vascular calcifications. Osseous structures are intact including the maxillofacial structures. The visualized paranasal sinuses, mastoids and orbits are negative. CT cervical spine: Moderate to advanced degenerative endplate changes are most marked at C5-C6. Normal alignment. No fractures. Vertebral body heights are maintained. No high-grade spinal canal narrowing on this noncontrast exam. The visualized paravertebral soft tissues are unremarkable. IMPRESSION: No acute intracranial or cervical spine CT findings. No maxillofacial fractures. Dictated by: Dictated on workstation # [id number] Dict: 07/12/16 1721 Trans: 07/12/16 2145 [facility] [id number] Interpreted by: OSCAR WILL MD Electronically signed by:OSCAR WILL MD 07/12/16 2147 NAME: RENATO NEGRON [facility] REC#: [id number] PT STATUS: REG ER : 1965 PHYSICIAN: ALINA GUEVARA MD ADMIT DATE: 07/12/16/ER Signed Date of Exam: 07/12/16 CT ANGIO CHEST W PROCEDURE: CT angiography of the chest with contrast. TECHNIQUE: Multiple contiguous axial images were obtained through the chest after uneventful bolus administration of intravenous contrast. Reconstructed CTA MIP acquisitions were also performed. DATE: July 12, 2016. COMPARISON: Chest radiograph from July 12, 2016. CT chest from October 01, 2014. INDICATION: 3s-year-old female, left-sided chest pain for one month. FINDINGS: There are patchy areas of groundglass attenuation in the right upper lobe on axial image 51 and adjacent sequential images. There is also patchy groundglass attenuation in the right middle lobe. There are subtle areas of patchy groundglass attenuation in the right lower lobe. There are patchy areas of prominently groundglass attenuation in the left upper lobe with mild linear opacities. There is no identified solitary pulmonary nodule. There is nonspecific bronchial wall thickening, bilaterally. There is opacification within the left lower lobe subsegmental bronchus on axial image 94. There is no identified pneumothorax. There is no pleural effusion. There is a left lower lobe subsegmental pulmonary embolus on axial image 72. There is a right lower lobe segmental and subsegmental pulmonary embolus seen on axial image 79 and adjacent sequential images. There is an additional right lower lobe and subsegmental pulmonary embolus on image 81, more anteriorly. The main pulmonary artery measures 2.7 cm in diameter which is within normal limits in diameter. The heart is not enlarged. There is no pericardial effusion. There is no identified abnormally enlarged mediastinal, hilar or axillary lymph node which meets CT size criteria for adenopathy. Limited visualized portions of the upper abdomen are unremarkable. There is a chronic appearing left lower rib fracture. There is no identified acute bony abnormality. IMPRESSION: CT chest: 1. Segmental and subsegmental bilateral pulmonary emboli, as described above. No abnormal dilation of the main pulmonary artery to particularly suggest elevated pressures. 2. Patchy multifocal areas of predominantly groundglass lung attenuation. This potentially could relate to findings of chronic pulmonary embolism. Differential diagnostic considerations would include multifocal pneumonia and atypical infectious etiologies in the differential diagnosis or pneumonitis such as hypersensitive pneumonitis. Clinical correlation may be helpful. Dictated by: Dictated on workstation # [id number] Dict: 07/12/16 1948 Trans: 07/12/162005 PJE [id number] Interpreted by: GEOVANNA WILDER MD Electronically signed by:GEOVANNA WILDER MD 07/12/162008 Discharge Instructions to patient/family Please see electonic discharge instructions given to patient. Discharge Medications Reviewed and agree with Discharge Medication list on patient's Discharge Instruction sheet Clinical Quality Measures DVT/VTE Risk/Contraindication: Risk Factor Score Per Nursin RFS Level Per Nursing on Admit: 4+=Very High Pneumonia: Pseudomonal Risk: No known risk Copy Copies To 1: KASSI Toussaint BETHANY N MD Jul 18, 2016 19:13
[2016-08-30] MEDS ORDERED: NITR-65 PO (19:49)
== END 2016-07-18 17:05 | disposition home health service (06) | DRG 193 ==
LOC: EDUNIT# 15:18 → ER 15:20 → ICU 20:41 → 4TH 07-14 13:39
PROVIDERS: ADMIT Family Medicine; ATTEND Family Medicine
DX: J18.9 Pneumonia, unspecified organism (principal); I26.99 Other pulmonary embolism without acute cor pulmonale; S92.512K Displaced fracture of proximal phalanx of left lesser toe(s), subsequent encounter for fracture with nonunion; G40.909 Epilepsy, unspecified, not intractable, without status epilepticus; F17.210 Nicotine dependence, cigarettes, uncomplicated; F12.90 Cannabis use, unspecified, uncomplicated; Z87.820 Personal history of traumatic brain injury; Z91.81 History of falling; F23 Brief psychotic disorder; F31.9 Bipolar disorder, unspecified; F43.12 Post-traumatic stress disorder, chronic
CPT/HCPCS: 36415; 70450; 70486; 71010; 71275; 72125; 73590; 73630; 80048; 80053; 80156; 80175; 80201; 80306; 80320; 80329; 81000; 83735; 84100; 84443; 84484; 85025; 85027; 85379; 86141; 87040; 93005; 94640; 94760; 96361; 96365; 96375

== ENCOUNTER → 2016-08-30 | Emergency (ER) | payer OTHER ==
[~2016-08-30] VITALS: Ht 170.2 cm; Wt 89.0 kg
[~2016-08-30] MED LIST changes: +AMIT150T PO; +APIX5TAB PO; +ATOR20TA66 PO; +BUSP10TA95 PO; +CARB200T6 PO; +CEPH500C PO; +DULO60CA58 PO; +GABA800T2 PO; +HYDR-700 PO; +LAMO25TA PO; +LOSA25TA21 PO; +NITR-65 PO; +SERT100T8 PO; +TETANUS,DIPTH,PERTUSS P/F (BOOSTRIX) 0.5 ML VIAL IM ONE; +TOPI50TA13 PO
[2016-08-30 18:48] LABS: BASOPHILS # (AUTO) 0.1 10^3/uL (0.0-0.1); BASOPHILS % (AUTO) 1 % (0-10); EOSINOPHILS # (AUTO) 0.1 10^3/uL (0.0-0.3); EOSINOPHILS % (AUTO) 1 % (0-10); LYMPHOCYTES # (AUTO) 3.4 X 10^3 (1.0-4.0); LYMPHOCYTES % (AUTO) 34 % (12-44); MEAN CORPUSCULAR HEMOGLOBIN 31 PG (25-34); MEAN CORPUSCULAR HGB CONC 33 G/DL (32-36); MEAN CORPUSCULAR VOLUME 94 FL (80-99); MEAN PLATELET VOLUME 8.9 FL (7.4-10.4); MONOCYTES % (AUTO) 10 % (0-12); NEUTROPHILS # (AUTO) 5.4 X 10^3 (1.8-7.8); NEUTROPHILS % (AUTO) 54 % (42-75); PLATELET COUNT 360 10^3/uL (130-400); RED BLOOD COUNT 4.29 10^6/uL (4.35-5.85); WHITE BLOOD COUNT 9.9 10^3/uL (4.3-11.0)
[2016-08-30 18:53] LABS: BILIRUBIN,URINE NEGATIVE (NEGATIVE); KETONES,URINE NEGATIVE (NEGATIVE); LEUKOCYTE ESTERASE ,URINE 1+ (NEGATIVE); NITRITE,URINE NEGATIVE (NEGATIVE); PH,URINE 7 (5-9); PROTEIN,URINE 1+ (NEGATIVE); UROBILINOGEN,URINE NORMAL (NORMAL)
[2016-08-30 18:55] LABS: PROTHROMBIN TIME PATIENT 12.8 SEC (12.2-14.7)
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
[2016-08-30 19:04] LABS: SQUAMOUS EPITHELIAL CELL,UR >50 /HPF; WBC,URINE RARE /HPF
[2016-08-30 19:05] LABS: ALANINE AMINOTRANSFERASE 17 U/L (0-55); ANION GAP 9 MMOL/L (5-14); ASPARTATE AMINO TRANSFERASE 16 U/L (5-34); BILIRUBIN,TOTAL 0.2 MG/DL (0.1-1.0); BLOOD UREA NITROGEN 7 MG/DL (7-18); BUN/CREATININE RATIO 10; CARBON DIOXIDE 26 MMOL/L (21-32); CHLORIDE 101 MMOL/L (98-107); CREATINE KINASE 42 U/L (29-168); CREATININE SERUM 0.73 MG/DL (0.60-1.30); GFR ESTIMATED > 60; GLUCOSE 71 MG/DL (70-105); POTASSIUM 3.7 MMOL/L (3.6-5.0); SODIUM 136 MMOL/L (135-145); TOTAL PROTEIN 6.8 G/DL (6.4-8.2)
[2016-08-30 19:07] LABS: ALCOHOL < 10 MG/DL (<10)
--- NOTE | 2016-08-30 19:13 | Diagnostic Imaging Report ---
PROCEDURE: CT head and CT cervical spine without contrast. TECHNIQUE: Multiple contiguous axial images were obtained through the brain and cervical spine without the use of intravenous contrast. Sagittal and coronal reformations through the cervical spine were then performed. DATE: August 30, 2016. COMPARISON: July 12, 2016. INDICATION: 51-year-old female, fall on Friday. Confusion and difficulties with memory. Neck pain. FINDINGS: The ventricles and cerebral spinal fluid spaces are of normal size and configuration for the patient's age. There is no mass effect or midline shift. There is no acute intracranial hemorrhage. There is no abnormal extra-axial fluid collection. The visualized portions of the paranasal sinuses, mastoid air cells and middle ears are well aerated. There is no identified facet joint subluxation or dislocation. There are normal variant bilateral ponticulus posticus. There is no asymmetric widening of the disc spaces. There is no prominent prevertebral soft tissue swelling. There is straightening of the normal cervical lordosis. There are mild to moderate degenerative changes at the C1-C2 articulation. There is moderate disc height loss at C5-C6 with prominent anterior osteophytes as well as a posterior disc osteophyte complex. There are areas of ossification along the posterior longitudinal ligament at the level of C3 and C4. There are posterior osteophytes at C4-C5 and a small posterior disc osteophyte complex at C6-C7. CT is limited for assessment of disc pathology as well as non-bony causes of foraminal and spinal stenosis. There is no identified acute fracture of the cervical spine. IMPRESSION: 1. No identified acute intracranial abnormality. 2. No identified acute abnormality of the cervical spine. 3. Multilevel disc degenerative changes of the cervical spine as described above. Dictated by: Dictated on workstation # [id number]
--- NOTE | 2016-08-30 19:20 | Diagnostic Imaging Report ---
EXAM: CT thoracic and lumbar spine without contrast. DATE: August 30, 2016. INDICATION: 51-year-old female, fall 3 days ago. Back pain. FINDINGS: The alignment of the thoracic and lumbar spine is unremarkable. There is no identified compression deformity or acute fracture. There is no pars interarticularis defect. There are multilevel endplate degenerative related changes of the lumbar spine without pronounced disc height loss. There are also multilevel mild disc degenerative changes of the thoracic spine without pronounced thoracic disc height loss. There are limitations of CT for assessment of disc pathology as well as non-bony causes of foraminal and spinal stenosis. There are moderate bilateral facet degenerative changes at L4-L5. There are mild bilateral facet degenerative changes at L3-L4. There is respiratory motion artifact. The visualized portions of the lungs are grossly clear. There are atherosclerotic calcifications. IMPRESSION: 1. No identified acute abnormality of the thoracic or lumbar spine. 2. Multilevel mild disc degenerative changes of the thoracic and lumbar spine. Mild facet degenerative changes at L3-L4 and moderate bilateral facet degenerative changes at L4-L5. Dictated by: Dictated on workstation # [id number]
[2016-08-30 20:20] VITALS: BP 0/0
== END | disposition home or self-care (01) ==
LOC: EDUNIT# 17:25 → ER 17:27
DX: M54.5 Low back pain (principal); G89.29 Other chronic pain; G50.0 Trigeminal neuralgia; Z23 Encounter for immunization; R51 Headache; N39.0 Urinary tract infection, site not specified; F17.210 Nicotine dependence, cigarettes, uncomplicated; Z79.01 Long term (current) use of anticoagulants; Z79.899 Other long term (current) drug therapy; Z86.711 Personal history of pulmonary embolism
CPT/HCPCS: 36415; 70450; 72125; 72128; 72131; 80053; 80306; 80320; 81000; 82550; 82553; 85025; 85610; 85730; 90471; 90715; 99283

== ENCOUNTER 2016-12-24 02:54 | Observation (INO) | payer OTHER ==
[~2016-12-24] VITALS: Ht 170.2 cm; Wt 83.7 kg
[2016-12-24] VITALS (11 sets, daily range): BP systolic 82–129; BP diastolic 53–91
[~2016-12-24 02:54] MED LIST changes: -TETANUS,DIPTH,PERTUSS P/F (BOOSTRIX) 0.5 ML VIAL IM ONE
--- OUTSIDE RECORDS SUMMARY | 2016-12-24 03:01 | XMS REPORT | Clinical Summary ---
Author Author [facility] Organization [facility] Address Unknown Phone Unavailable Care Team Providers Care Pilot Plant Supervisor Name Role Phone PCP Unavailable Source Comments Some departments are not documenting in the electronic medical record. If you do not see the information that you expected, contact Release of Information in the Health Information Management department at [phone] for further assistance in locating additional records.[facility] Allergies No Known Allergies Current Medications Prescription Sig. [...] at bedtime for 1 60 Cap 5 05/21/20 Active mg capsuleIndications: week, then 100mg BID 17 Chronic face pain carBAMazepine (TEGRETOL) Take 200 mg by mouth Active 200 mg tabletIndications: three times daily. Patient taking twice Indications: Patient daily taking twice daily hydrOXYzine (ATARAX) 25 Take [...] daily. 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 Respiratory Rate - - Oxygen Saturation 100% 06/06/2016 1:24 PM FOUNTAIN 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
--- OUTSIDE RECORDS SUMMARY | 2016-12-24 03:01 | XMS REPORT ---
Author Author MASSIMO BOYD [facility] Address [address] [place] [address] Care Team Providers Care Peer Tutor Name Role Phone MASSIMO BOYD Unavailable PROBLEMS Type Condition ICD9-CM Code [id number] Code Onset Dates Condition Status SNOMED Code Problem Referred by primary care physician Z76.89 Active 4555972864284 Problem Posttraumatic stress disorder F43.10 Active 13629907 Problem Mood disorder F39 Active 48074509 Problem Other acute pulmonary embolism without acute cor pulmonale I26.99 Active 171267628 Problem Severe episode of recurrent major depressive disorder, without psychotic features F33.2 Active 52733391 Problem Trigeminal neuralgia of right side of face G50.0 Active 35904151 Problem Panic attacks F41.0 Active 304042601 Problem Personality disorder in adult F60.9 Active 68805126 Problem Chronic pain disorder G89.4 Active 225711075 ALLERGIES Unknown Allergies SOCIAL HISTORY No smoking Hx information available PLAN OF CARE VITAL SIGNS MEDICATIONS Medication Instructions Dosage Frequency Start Date End Date Duration Status Lamotrigine 25 MG Orally Twice a day 3 tablets 12h 30 days Active RESULTS No Results PROCEDURES No Known procedures IMMUNIZATIONS No Known Immunizations
--- OUTSIDE RECORDS SUMMARY | 2016-12-24 03:04 | XMS REPORT ---
Author Author VIRGINIA Dodson [facility] Address Unknown Phone Unavailable Care Team Providers Care Mottler Operator Name Role Phone VIRGINIA Dodson Unavailable Unavailable PROBLEMS Type Condition ICD9-CM Code [id number] Code Onset Dates Condition Status SNOMED Code Problem Referred by primary care physician Z76.89 Active 3453165892738 Problem Posttraumatic stress disorder F43.10 Active 21853850 Problem Mood disorder F39 Active 18590524 Problem Other acute pulmonary embolism without acute cor pulmonale I26.99 Active 120097744 Problem Severe episode of recurrent major depressive disorder, without psychotic features F33.2 Active 12711712 Problem Trigeminal neuralgia of right side of face G50.0 Active 92203805 Problem Panic attacks F41.0 Active 385577616 Problem Personality disorder in adult F60.9 Active 35133637 Problem Chronic pain disorder G89.4 Active 293270338 ALLERGIES Unknown Allergies SOCIAL HISTORY No smoking Hx information available PLAN OF CARE VITAL SIGNS MEDICATIONS Unknown Medications RESULTS No Results PROCEDURES No Known procedures IMMUNIZATIONS No Known Immunizations
--- OUTSIDE RECORDS SUMMARY | 2016-12-24 03:04 | XMS REPORT ---
Author Author ANUM TURCIOS [facility] Address Unknown Care Team Providers Care Director Of Housing And Energy Services Name Role Phone ANUM TURCIOS Unavailable PROBLEMS Type Condition ICD9-CM Code [id number] Code Onset Dates Condition Status SNOMED Code Problem Referred by primary care physician Z76.89 Active 6552095658845 Problem Posttraumatic stress disorder F43.10 Active 97627826 Problem Mood disorder F39 Active 75152868 Problem Other acute pulmonary embolism without acute cor pulmonale I26.99 Active 898904530 Problem Severe episode of recurrent major depressive disorder, without psychotic features F33.2 Active 37036516 Problem Trigeminal neuralgia of right side of face G50.0 Active 19660952 Problem Panic attacks F41.0 Active 385054906 Problem Personality disorder in adult F60.9 Active 30507358 Problem Chronic pain disorder G89.4 Active 244500121 ALLERGIES Unknown Allergies SOCIAL HISTORY No smoking Hx information available PLAN OF CARE VITAL SIGNS MEDICATIONS Unknown Medications RESULTS No Results PROCEDURES No Known procedures IMMUNIZATIONS No Known Immunizations
[2016-12-24] MEDS ORDERED: NS IV 1000 ML 1,000 ML ONE (03:07)
[2016-12-24] MEDS ORDERED: NS IV 1000 ML 1,000 ML IV ONE (03:09)
[2016-12-24 03:19] LABS: BILIRUBIN,URINE NEGATIVE (NEGATIVE); KETONES,URINE NEGATIVE (NEGATIVE); LEUKOCYTE ESTERASE ,URINE NEGATIVE (NEGATIVE); NITRITE,URINE NEGATIVE (NEGATIVE); PH,URINE 6 (5-9); PROTEIN,URINE NEGATIVE (NEGATIVE); UROBILINOGEN,URINE NORMAL (NORMAL)
[2016-12-24 03:20] LABS: BASOPHILS % (AUTO) 0 % (0-10); EOSINOPHILS # (AUTO) 0.1 10^3/uL (0.0-0.3); EOSINOPHILS % (AUTO) 1 % (0-10); LYMPHOCYTES # (AUTO) 3.6 X 10^3 (1.0-4.0); LYMPHOCYTES % (AUTO) 33 % (12-44); MEAN CORPUSCULAR HEMOGLOBIN 32 PG (25-34); MEAN CORPUSCULAR HGB CONC 33 G/DL (32-36); MEAN CORPUSCULAR VOLUME 95 FL (80-99); MEAN PLATELET VOLUME 9.2 FL (7.4-10.4); MONOCYTES # (AUTO) 0.9 X 10^3 (0.0-1.0); MONOCYTES % (AUTO) 8 % (0-12); NEUTROPHILS # (AUTO) 6.3 X 10^3 (1.8-7.8); NEUTROPHILS % (AUTO) 58 % (42-75); PLATELET COUNT 390 10^3/uL (130-400); RED BLOOD COUNT 3.71 10^6/uL (4.35-5.85); RED CELL DISTRIBUTION WIDTH 14.2 % (10.0-14.5); WHITE BLOOD COUNT 10.9 10^3/uL (4.3-11.0)
[2016-12-24 03:26] LABS: SQUAMOUS EPITHELIAL CELL,UR RARE /HPF
[2016-12-24 03:32] LABS: ABG BASE EXCESS -2.6 MMOL/L (-2.5-2.5); ABG HCO3 22 MMOL/L (23-27); ABG OXYGEN SATURATION 98 % (94-100); ABG PCO2 39 MMHG (35-45); ABG PH 7.36 (7.37-7.43); ABG PO2 164 MMHG (79-93); ABG TCO2 23.2 MMOL/L (21.0-31.0)
[2016-12-24 03:34] LABS: ALLENS TEST YES-POS; PATIENT TEMP 98.1
[2016-12-24 03:36] LABS: ALANINE AMINOTRANSFERASE 16 U/L (0-55); ALBUMIN 3.6 GM/DL (3.2-4.5); ALCOHOL < 10 MG/DL (<10); ANION GAP 14 MMOL/L (5-14); ASPARTATE AMINO TRANSFERASE 16 U/L (5-34); BILIRUBIN,TOTAL 0.2 MG/DL (0.1-1.0); BLOOD UREA NITROGEN 8 MG/DL (7-18); BUN/CREATININE RATIO 10; CALCIUM 8.7 MG/DL (8.5-10.1); CARBON DIOXIDE 18 MMOL/L (21-32); CHLORIDE 109 MMOL/L (98-107); CREATININE SERUM 0.83 MG/DL (0.60-1.30); GFR ESTIMATED > 60; GLUCOSE 105 MG/DL (70-105); MAGNESIUM 2.1 MG/DL (1.8-2.4); POTASSIUM 3.4 MMOL/L (3.6-5.0); SODIUM 141 MMOL/L (135-145); TOTAL PROTEIN 6.2 GM/DL (6.4-8.2); hs C REACTIVE PROTEIN 1.02 MG/DL (0.00-0.50)
[2016-12-24 03:37] LABS: ACETAMINOPHEN < 10 UG/ML (10-30)
--- NOTE | 2016-12-24 03:46 | ED General ---
General Chief Complaint: Unresponsive Stated Complaint: UNRESPONSIVE Source of Information: Patient Exam Limitations: No Limitations History of Present Illness Time Seen by Provider: 03:00 Initial Comments She her by EMS after being found unresponsive in a car by the [employer]. [place] still [place]. There was food in the car from [employer]. [employer]'s department tried to wake her and she would not awaken and EMS was summoned. EMS arrived and initiated IV. She did get Narcan 2 mg IV and the unresponsiveness continued and did not change. No obvious injury. No damage to the car and no indication that there is any traumatic involvement. Patient has been seen before for altered mental status as well which may have been medication related. She does get her medications through the [place] and through [facility]. Otherwise unable to get history from the patient and all history through records and EMS report. Timing/Duration: 1/2 Hour Severity: Severe Allergies and Home Medications Allergies Coded Allergies: No Known Drug Allergies (Unverified , 06/09/14) Home Medications Amitriptyline HCl 150 Mg Tablet, 150 MG PO HS, (Reported) Apixaban 5 Mg Tablet, 0 PO UD, #60 Ref 0 Take 10 mg PO tonight and twice tomorrow (07/19), then change to 5 mg BID Prescribed by: BRUNA GOODRICH on 07/18/16 1202 Atorvastatin Calcium 20 Mg Tablet, 20 MG PO HS, #30 Ref 0 Prescribed by: BRUNA GOODRICH on 07/18/16 1202 Baclofen 10 Mg Tablet, 10 MG PO TID, (Reported) Buspirone HCl 10 Mg Tablet, 10 MG PO TID PRN for ANXIETY, #90 Ref 0 FILLED #90 05-13-16 Prescribed by: BRUNA GOODRICH on 07/18/16 1202 Carbamazepine 200 Mg Tablet, 200 MG PO TID, (Reported) LAST FILLED #90 05-07-16 Duloxetine HCl 60 Mg Capsule.dr, 60 MG PO DAILY, #30 Ref 0 LAST FILLED #30 04-17-16 Prescribed by: BRUNA GOODRICH on 07/18/16 1202 Gabapentin 800 Mg Tablet, 800 MG PO TID, (Reported) LAST FILLED #90 05-02-16 Lamotrigine 25 Mg Tablet, 75 MG PO BID, #180 Ref 0 Prescribed by: BRUNA GOODRICH on 07/18/16 1202 Losartan Potassium 25 Mg Tablet, 25 MG PO DAILY, #30 Ref 0 Prescribed by: BRUNA GOODRICH on 07/18/16 1202 Nitrofurantoin Monohyd/M-Cryst 100 Mg Capsule, 100 MG PO BID, #20 Prescribed by: LANDON GODOY on 08/30/16 1949 Sertraline HCl 100 Mg Tablet, 150 MG PO DAILY, #45 Ref 0 Prescribed by: BRUNA GOODRICH on 07/18/16 1202 Topiramate 50 Mg Tablet, 50 MG PO BID, #60 Ref 0 LAST FILLED #180 03-27-16 Prescribed by: BRUNA GOODRICH on 07/18/16 1202 Constitutional: see HPI Other Unable to complete review of systems due to unresponsiveness Past Syskhpr-Wqtexi-Nbbdyx Hx Patient Social History Alcohol Use: Denies Use Recreational Drug Use: Yes Drug of Choice: MARIJUANA Smoking Status: Current Everyday Smoker Type Used: Cigarettes Recent Foreign Travel: No Contact w/Someone Who Travel: No Recent Hopitalizations: No Physical Abuse: No Sexual Abuse: No Mistreated: No Fear: No Immunizations Up To Date Tetanus Booster (TDap): Less than 5yrs Seasonal Allergies Seasonal Allergies: No Surgeries History of Surgeries: Yes (FACE) Surgeries: Section, Orthopedic, Tubal Ligation Respiratory History of Respiratory Disorde: Yes (BILATERAL P.E. 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 Genitourinary History of Genitourinary Disor: No Gastrointestinal History of Gastrointestinal Di: No Musculoskeletal History of Musculoskeletal Dis: Yes (FACIAL PAIN) Musculoskeletal Disorders: Chronic Back Pain Endocrine History of Endocrine Disorders: No HEENT History of HEENT Disorders: No Cancer History of Cancer: No Psychosocial History of Psychiatric Problem: Yes Behavioral Health Disorders: Anxiety, PTSD, Bipolar, Depression Suicide Risk Score: 0 Integumentary History of Skin or Integumenta: No Blood Transfusions History of Blood Disorders: No Reviewed Nursing Assessment Reviewed/Agree w Nursing PMH: Yes Family Medical History Significant Family History: No Pertinent Family Hx Family Medial History: Alcoholism 19 FATHER Arthritis 19 MOTHER FH: bipolar disorder Physical Exam Vital Signs Vital Sign - Last 12Hours 12/24/16 12/24/16 02:54 04:40 Temp 98.1 Pulse 76 Resp 16 B/P (MAP) 92/56 Pulse Ox 96 O2 Delivery Room Air O2 Flow Rate 2.00 Capillary Refill : General Appearance: No Apparent Distress, WD/WN HEENT: PERRL/EOMI, Pharynx Normal, Other (no gag reflex) Neck: Normal Inspection, Non Tender, Supple Respiratory: Lungs Clear, Normal Breath Sounds, No Respiratory Distress Cardiovascular: Regular Rate, Rhythm, No Murmur Gastrointestinal: Non Tender, Soft Back: Normal Inspection, Other (no signs of injury) Extremity: Non Tender, No Pedal Edema Neurologic/Psychiatric: Disoriented x3, Other (unresponsive overall) Skin: Normal Color, Warm/Dry Progress/Results/Core Measures Results/Orders Lab Results Laboratory Tests Test 12/24/16 02:50 12/24/16 02:59 12/24/16 03:04 12/24/16 03:20 Range/Units Prothrombin Time 14.5 12.2-14.7 SEC INR Comment 1.1 0.8-1.4 Activated Partial Thromboplast Time 33 24-35 SEC White Blood Count 10.9 4.3-11.0 10^3/uL Red Blood Count 3.71 L 4.35-5.85 10^6/uL Hemoglobin 11.8 11.5-16.0 G/DL Hematocrit 35 35-52 % Mean Corpuscular Volume 95 80-99 FL Mean Corpuscular Hemoglobin 32 25-34 PG Mean Corpuscular Hemoglobin Concent 33 32-36 G/DL Red Cell Distribution Width 14.2 10.0-14.5 % Platelet Count 390 130-400 10^3/uL Mean Platelet Volume 9.2 7.4-10.4 FL Neutrophils (%) (Auto) 58 42-75 % Lymphocytes (%) (Auto) 33 12-44 % Monocytes (%) (Auto) 8 0-12 % Eosinophils (%) (Auto) 1 0-10 % Basophils (%) (Auto) 0 0-10 % Neutrophils # (Auto) 6.3 1.8-7.8 X 10^3 Lymphocytes # (Auto) 3.6 1.0-4.0 X 10^3 Monocytes # (Auto) 0.9 0.0-1.0 X 10^3 Eosinophils # (Auto) 0.1 0.0-0.3 10^3/uL Basophils # (Auto) 0.0 0.0-0.1 10^3/uL Sodium Level 141 135-145 MMOL/L Potassium Level 3.4 L 3.6-5.0 MMOL/L Chloride Level 109 H 98-107 MMOL/L Carbon Dioxide Level 18 L 21-32 MMOL/L Anion Gap 14 5-14 MMOL/L Blood Urea Nitrogen 8 7-18 MG/DL Creatinine 0.83 0.60-1.30 MG/DL Estimat Glomerular Filtration Rate > 60 BUN/Creatinine Ratio 10 Glucose Level 105 70-105 MG/DL Calcium Level 8.7 8.5-10.1 MG/DL Magnesium Level 2.1 1.8-2.4 MG/DL Total Bilirubin 0.2 0.1-1.0 MG/DL Aspartate Amino Transf (AST/SGOT) 16 5-34 U/L Alanine Aminotransferase (ALT/SGPT) 16 0-55 U/L Alkaline Phosphatase 75 40-136 U/L C-Reactive Protein High Sensitivity 1.02 H 0.00-0.50 MG/DL Total Protein 6.2 L 6.4-8.2 GM/DL Albumin 3.6 3.2-4.5 GM/DL Acetaminophen Level < 10 L 10-30 UG/ML Serum Alcohol < 10 <10 MG/DL Urine Color YELLOW Urine Clarity CLEAR Urine pH 6 5-9 Urine Specific [place] 1.015 L 1.016-1.022 Urine Protein NEGATIVE NEGATIVE Urine Glucose (UA) NEGATIVE NEGATIVE Urine Ketones NEGATIVE NEGATIVE Urine Nitrite NEGATIVE NEGATIVE Urine Bilirubin NEGATIVE NEGATIVE Urine Urobilinogen NORMAL NORMAL MG/DL Urine Leukocyte Esterase NEGATIVE NEGATIVE Urine RBC (Auto) NEGATIVE NEGATIVE Urine RBC NONE /HPF Urine WBC NONE /HPF Urine Squamous Epithelial Cells RARE /HPF Urine Crystals NONE /LPF Urine Bacteria NEGATIVE /HPF Urine Casts NONE /LPF Urine Mucus NEGATIVE /LPF Urine Culture Indicated NO Urine Opiates Screen NEGATIVE NEGATIVE Urine Oxycodone Screen NEGATIVE NEGATIVE Urine Methadone Screen NEGATIVE NEGATIVE Urine Propoxyphene Screen NEGATIVE NEGATIVE Urine Barbiturates Screen NEGATIVE NEGATIVE Ur Tricyclic Antidepressants Screen POSITIVE H NEGATIVE Urine Phencyclidine Screen NEGATIVE NEGATIVE Urine Amphetamines Screen NEGATIVE NEGATIVE Urine Methamphetamines Screen NEGATIVE NEGATIVE Urine Benzodiazepines Screen NEGATIVE NEGATIVE Urine Cocaine Screen NEGATIVE NEGATIVE Urine Cannabinoids Screen NEGATIVE NEGATIVE Blood Gas Puncture Site R RAD Blood Gas Patient Temperature 98.1 Arterial Blood pH 7.36 L 7.37-7.43 Arterial Blood Partial Pressure CO2 39 35-45 MMHG Arterial Blood Partial Pressure O2 164 H 79-93 MMHG Arterial Blood HCO3 22 L 23-27 MMOL/L Arterial Blood Total CO2 23.2 21.0-31.0 MMOL/L Arterial Blood Oxygen Saturation 98 94-100 % Arterial Blood Base Excess -2.6 L -2.5-2.5 MMOL/L [place] Test YES-POS Blood Gas Ventilator Setting NO Blood Gas Inspired Oxygen 2L My Orders Orders - KAMRON SY MD Acetaminophen (12/24/16 03:09) Alcohol (12/24/16 03:09) Arterial Blood Gas (12/24/16 03:09) Cbc With Automated Diff (12/24/16 03:09) Comprehensive Metabolic Panel (12/24/16 03:09) Hs C Reactive Protein (12/24/16 03:09) Drug Screen Stat (Urine) (12/24/16 03:09) Magnesium (12/24/16 03:09) Ua Culture If Indicated (12/24/16 03:09) Ekg Tracing (12/24/16 03:09) Catheter(Urinary) Insert & Ass 03,15 (12/24/16 03:09) O2 (12/24/16 03:09) Monitor-Rhythm Ecg Trace Only (12/24/16 03:09) Chest 1 View, Ap/Pa Only (12/24/16 03:09) Saline Lock/Iv-Start (12/24/16 03:09) Ns Iv 1000 Ml (Sodium Chloride 0.9%) (12/24/16 03:09) Ns Iv 1000 Ml (Sodium Chloride 0.9%) (12/24/16 03:07) Ct Head Wo (12/24/16 03:46) Protime With Inr (12/24/16 04:08) Partial Thromboplastin Time (12/24/16 04:08) Medications Given in ED Current Medications Medications Dose Ordered Sig/Christian Route Start Time Stop Time Status Last Admin Dose Admin Sodium Chloride 1,000 ml @ 0 mls/hr Q0M ONCE IV 12/24/16 03:09 12/24/16 03:14 DC 12/24/16 03:18 1,000 MLS/HR Vital Signs/I&O Vital Sign - Last 12Hours 12/24/16 12/24/16 12/24/16 02:54 04:40 05:04 Temp 98.1 Pulse 76 65 65 Resp 16 19 B/P (MAP) 92/56 97/65 Pulse Ox 96 100 O2 Delivery Room Air Nasal Cannula O2 Flow Rate 2.00 Progress Note : Progress Note Seen and evaluated on arrival by EMS. Patient is breathing well on her own although has no known gag reflex. She is showing no signs of respiratory distress. End-tidal CO2 placed as well as an O2 sat monitor. Patient maintaining O2 sat saturations in the upper 90s on 2 L via O2 with end-tidal CO2 of 34. IV placed by EMS. Normal saline 1 L bolus. Miranda catheter placed. Labs, ABG, chest x-ray and EKG ordered. Patient monitored in the ER. No signs of impending failure of respiratory system. Intubation seriously considered but ABG and end-tidal CO2 as well as oxygen saturations indicate patient is managing airway okay at this point. Nasal trumpet placed. I did discuss the case with Dr. Smith at 0340. She accepts patient for admission, observation status at this point as this may only be medication effect. To be admitted to ICU with continuous monitoring. We will get CT of the head prior to admission. 0400: armored vehicle officer arrives and he will try to make contact with patient's daughter. ECG Initial ECG Impression Date: Dec 24, 2016 Initial ECG Impression Time: 03:24 Initial ECG Rate: 71 Initial ECG Rhythm: Normal Sinus Initial ECG Impression: Normal Initial ECG Comparisson: No Previous ECG Available Comment Sinus rhythm with normal axis. No evidence of ST elevation [place]. No previous available for comparison. Interpreted by me. Diagnostic Imaging Diagonstic Imaging: Xray Plain Films/CT/US/NM/MRI: chest Comments No acute findings Reviewed: Reviewed by Me Diagonstic Imaging: CT Plain Films/CT/US/NM/MRI: head Comments No evidence of acute intracranial transcortical infarct or acute intracranial hemorrhage Reviewed: [facility] Reviewed by Me Departure Impression Impression: Primary Impression: Altered mental state Qualified Codes: R41.82 - Altered mental status, unspecified Disposition: 09 ADMITTED INPATIENT Condition: Stable Admissions Decision to Admit Reason: Admit from ER (General) Decision to Admit/Date: Dec 24, 2016 Time/Decision to Admit Time: 03:40 Departure-Patient Inst. Referrals: [facility] (PCP/Family) Primary Care Physician KAMRON SY MD Dec 24, 2016 03:46
--- OUTSIDE RECORDS SUMMARY | 2016-12-24 03:57 | XMS REPORT | Clinical Summary ---
Author Author [facility] Organization [facility] Address Unknown Phone Unavailable Care Team Providers Care Pilot Manager Name Role Phone PCP Unavailable Source Comments Some departments are not documenting in the electronic medical record. 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 TEACHER Inhaled Oxygen - - Concentration Weight 89.4 kg (197 lb) 06/06/2016 1:24 PM BUSINESS ADMINISTRATION TEACHER Height 170.2 cm (5' 7") 06/06/2016 1:24 PM BUSINESS ADMINISTRATION TEACHER Body Mass Index 30.85 06/06/2016 1:24 PM BUSINESS 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
[2016-12-24 04:16] LABS: INR 1.1 (0.8-1.4); PROTHROMBIN TIME PATIENT 14.5 SEC (12.2-14.7)
[2016-12-24] MEDS ORDERED: POTASSIUM CL 10MEQ/50ML IVPB 50 ML IV SCH (06:00)
[2016-12-24] MEDS ORDERED: ONDANSETRON 4 MG/2 ML (SDV) Z0FRAN IV PRN (06:00)
[2016-12-24] MEDS ORDERED: NS IV 1000 ML 1,000 ML IV SCH (06:00)
[2016-12-24] MEDS ORDERED: KCL 20 MEQ TAB (K-DUR) PO SCH (06:00)
[2016-12-24] MEDS ORDERED: MAGNESIUM 1 GM/100 ML IVPB 100 ML IV SCH (06:00)
[2016-12-24] MEDS: POTASSIUM CL 10MEQ/50ML IVPB 50 ML IV SCH ×2 (06:05→07:09)
[2016-12-24] MEDS ORDERED: RT-ALBUTEROL SULF 2.5 MG/3 ML PRE-MIX VIAL IH SCH (08:00)
--- NOTE | 2016-12-24 08:13 | Diagnostic Imaging Report ---
PROCEDURE: CT head without contrast. TECHNIQUE: Multiple contiguous axial images were obtained through the brain without the use of intravenous contrast. INDICATION: Unresponsive following possible overdose. Head CT compared to 07/12/2016. There is no intracranial hemorrhage. There is no hydrocephalus. No findings of focal or generalized edema. No mass or mass effect. There is no evidence for elevation of the intracranial pressures. Orbits, sinuses and calvarium were unremarkable. IMPRESSION: Stable unremarkable CT head. Dictated by: Dictated on workstation # [id number]
--- NOTE | 2016-12-24 08:17 | Diagnostic Imaging Report ---
INDICATION: Unresponsive, possible overdose. COMPARISON: 07/14 FINDINGS: The pulmonary edema and vascular congestion present on prior resolved in the interim. There is some mild thickening of the central airways which may reflect an element of bronchitis. No focal pneumonia. The heart size and vascularity appeared within normal limits. No effusion or pneumothorax. IMPRESSION: Some thickening of the central airways may reflect inflammatory airway disease such as bronchitis. No focal consolidation, pleural pathology or domenica failure pattern. Dictated by: Dictated on workstation # [id number]
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
[2016-12-24] MEDS ORDERED: HYDROcodone/APAP 5 MG/325 MG (LORTAB) TAB PO PRN (11:00)
[2016-12-24] MEDS ORDERED: SODI51CR DT (11:14)
[2016-12-24] MEDS ORDERED: TOPI50TA13 PO (11:14)
[2016-12-24] MEDS ORDERED: BUSP10TA95 PO (11:14)
[2016-12-24] MEDS ORDERED: LAMO25TA PO (11:14)
[2016-12-24] MEDS ORDERED: APIX5TAB PO (11:14)
[2016-12-24] MEDS ORDERED: ATOR20TA66 PO (11:29)
[2016-12-24] MEDS ORDERED: DULO60CA58 PO (11:29)
[2016-12-24] MEDS ORDERED: LOSA25TA21 PO (11:29)
[2016-12-24] MEDS ORDERED: busPIRone 10 MG (BUSPAR) TAB PO PRN (14:45)
[2016-12-24] MEDS ORDERED: carBAMazepine 200 MG (TEGretol) TAB PO SCH (17:00)
[2016-12-24] MEDS ORDERED: BACLOFEN 10 MG (LIORESAL) TAB PO SCH (17:00)
[2016-12-24] MEDS ORDERED: lamoTRIgine 25 MG (LaMICtal) TAB PO SCH (21:00)
[2016-12-24] MEDS ORDERED: AMITRIPTYLINE 150 MG (ELAVIL) TABLET PO SCH (21:00)
[2016-12-24] MEDS ORDERED: ATORVASTATIN 20 MG (LIPITOR) TABLET PO SCH (21:00)
[2016-12-24] MEDS ORDERED: toPIRamate 25 MG (TOPAMAX) TAB PO SCH (21:00)
[2016-12-24] MEDS ORDERED: GABAPENTIN 400 MG (NEURONTIN) CAP PO SCH (21:00)
[2016-12-24] MEDS ORDERED: APIXABAN 5 MG (ELIQUIS) TABLET PO SCH (21:00)
[2016-12-25] MEDS ORDERED: DULoxetine 30 MG (CYMBALTA) CAP PO SCH (09:00)
[2016-12-25] MEDS ORDERED: LOSARTAN 25 MG (COZAAR) TAB PO SCH (09:00)
== END 2016-12-24 14:40 | disposition home or self-care (01) ==
LOC: EDUNIT# 02:55 → ER 02:57 → ICU 03:40 → UNDOADMOB 03:40 → ICU 04:40 → UNDODISOB 15:40
PROVIDERS: ADMIT Internal Medicine; ATTEND Internal Medicine
DX: T42.6X1A Poisoning by other antiepileptic and sedative-hypnotic drugs, accidental (unintentional), initial encounter (principal); T43.201A Poisoning by unspecified antidepressants, accidental (unintentional), initial encounter; E78.00 Pure hypercholesterolemia, unspecified; G40.909 Epilepsy, unspecified, not intractable, without status epilepticus; F17.210 Nicotine dependence, cigarettes, uncomplicated; Z79.01 Long term (current) use of anticoagulants; Z79.899 Other long term (current) drug therapy; Z87.820 Personal history of traumatic brain injury; Z86.711 Personal history of pulmonary embolism; Y92.009 Unspecified place in unspecified non-institutional (private) residence as the place of occurrence of the external cause
CPT/HCPCS: 36415; 70450; 71010; 80053; 80306; 80320; 80329; 81000; 82805; 83735; 85025; 85610; 85730; 86141; 87081; 93005; 93041; 94640; 96360; G0378

== ENCOUNTER 2017-08-17 08:35 | Inpatient (IN) | payer MEDICARE, OTHER ==
[2017-08-17] VITALS (23 sets, daily range): BP systolic 109–159; BP diastolic 57–94
[~2017-08-17] VITALS: Ht 167.6 cm; Wt 84.4 kg
[~2017-08-17 08:35] MED LIST changes: +SODI51CR DT
[2017-08-17 09:00] LABS: BASOPHILS % (AUTO) 0 % (0-10); EOSINOPHILS % (AUTO) 0 % (0-10); HEMATOCRIT 39 % (35-52); HEMOGLOBIN 13.2 G/DL (11.5-16.0); LYMPHOCYTES # (AUTO) 1.2 X 10^3 (1.0-4.0); LYMPHOCYTES % (AUTO) 8 % (12-44); MEAN CORPUSCULAR HEMOGLOBIN 31 PG (25-34); MEAN CORPUSCULAR HGB CONC 34 G/DL (32-36); MEAN CORPUSCULAR VOLUME 92 FL (80-99); MEAN PLATELET VOLUME 9.2 FL (7.4-10.4); MONOCYTES % (AUTO) 7 % (0-12); NEUTROPHILS % (AUTO) 85 % (42-75); PLATELET COUNT 343 10^3/uL (130-400); RED BLOOD COUNT 4.24 10^6/uL (4.35-5.85); RED CELL DISTRIBUTION WIDTH 12.9 % (10.0-14.5); WHITE BLOOD COUNT 14.2 10^3/uL (4.3-11.0)
[2017-08-17 09:15] LABS: ALANINE AMINOTRANSFERASE 12 U/L (0-55); ALKALINE PHOSPHATASE 89 U/L (40-136); BILIRUBIN,TOTAL 0.7 MG/DL (0.1-1.0); BUN/CREATININE RATIO 9; CALCIUM 8.8 MG/DL (8.5-10.1); CARBON DIOXIDE 23 MMOL/L (21-32); CHLORIDE 100 MMOL/L (98-107); GFR ESTIMATED > 60; GLUCOSE 111 MG/DL (70-105); POTASSIUM 3.1 MMOL/L (3.6-5.0); SODIUM 136 MMOL/L (135-145); TOTAL PROTEIN 6.9 GM/DL (6.4-8.2)
[2017-08-17 10:06] LABS: BAND NEUTROPHILS 0 %; BASOPHILS % (MANUAL) 0 %; EOSINOPHILS % (MANUAL) 0 %; LYMPHOCYTES % (MANUAL) 8 %; MONOCYTES % (MANUAL) 5 %; NEUTROPHILS % (MANUAL) 87 %; RBC MORPH NORMAL
[2017-08-17] MEDS ORDERED: ZIPRASIDONE 20 MG INJ (GEODON) VIAL IM ONE ×3 (10:23→11:45)
[2017-08-17] MEDS ORDERED: WATER (STERILE) FOR INJECTION 20 ML ONE (10:28)
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
[2017-08-17] MEDS ORDERED: LORazepam INJ 2 MG/ML (ATIVAN) VIAL ONE (11:27)
[2017-08-17 11:59] LABS: BILIRUBIN,URINE NEGATIVE (NEGATIVE); CLARITY,URINE VERY CLOUDY; COLOR,URINE YELLOW; GLUCOSE, URINE (UA) NEGATIVE (NEGATIVE); KETONES,URINE 1+ (NEGATIVE); LEUKOCYTE ESTERASE ,URINE 3+ (NEGATIVE); NITRITE,URINE NEGATIVE (NEGATIVE); PH,URINE 6.5 (5-9); PROTEIN,URINE NEGATIVE (NEGATIVE); UROBILINOGEN,URINE NORMAL (NORMAL)
[2017-08-17 12:12] LABS: BACTERIA,URINE MODERATE /HPF
[2017-08-17 12:13] LABS: AMPHETAMINE SCREEN, URINE NEGATIVE (NEGATIVE); BARBITURATE SCREEN URINE NEGATIVE (NEGATIVE); BENZODIAZEPINES SCREEN URINE NEGATIVE (NEGATIVE); CANNABINOID SCREEN, URINE NEGATIVE (NEGATIVE); COCAINE SCREEN URINE NEGATIVE (NEGATIVE); METHADONE STAT NEGATIVE (NEGATIVE); METHAMPHETAMINE SCREEN URINE S NEGATIVE (NEGATIVE); OPIATE SCREEN URINE NEGATIVE (NEGATIVE); OXYCODONE STAT NEGATIVE (NEGATIVE); PROPOXYPHENE STAT NEGATIVE (NEGATIVE); TRICYCLIC ANTIDEPRESSANTS SCRE POSITIVE (NEGATIVE)
--- NOTE | 2017-08-17 12:14 | Diagnostic Imaging Report ---
PROCEDURE: CT head without contrast. TECHNIQUE: Multiple contiguous axial images were obtained through the brain without the use of intravenous contrast. DATE: 08/17/2017. COMPARISON: 12/24/2016. INDICATION: 51-year-old female, seizure. Altered mental status. FINDINGS: The ventricles and cerebral spinal fluid spaces are of normal size and configuration for the patient's age. There is no mass effect or midline shift. There is no acute intracranial hemorrhage. There is no abnormal extra-axial fluid collection. The visualized portions of the paranasal sinuses, mastoid air cells and middle ears are well aerated. IMPRESSION: 1. No identified acute intracranial abnormality. Dictated by: Dictated on workstation # [id number]
--- OUTSIDE RECORDS SUMMARY | 2017-08-17 12:23 | XMS REPORT | Continuity of Care Document ---
Author Author [employer] Organization [facility] Address Unknown Phone Unavailable Care Team Providers Care Cruise Counselor Name Role Phone [employer] Unavailable Unavailable Problems Medications Allergies, Adverse Reactions, Alerts Immunizations Results Vital Signs Encounters Location Location Details Encounter Type Encounter Number Reason For Visit Attending Provider ADM Date DC Date Status Source OUTPATIENT 02/28/2016 02/28/2016 Active [facility] OUTPATIENT [id number] NITA REGALADO 05/21/2016 Active [facility] OUTPATIENT [id number] DIANNA SAYED 06/06/2016 Active [facility] OUTPATIENT [id number] DIANNA SAYED 03/04/2017 Active [facility] OP SURGERY [id number] DIANNA SAYED 04/02/2017 Active [facility] Procedures Plan of Care Social History Assessment and Plan Family History Advance Directives Functional Status
--- OUTSIDE RECORDS SUMMARY | 2017-08-17 12:23 | XMS REPORT ---
Author Author MASSIMO BOYD [facility] Address [address] [place] [address] Care Team Providers Care Peanut Shaker Name Role Phone MASSIMO BOYD Unavailable PROBLEMS Type Condition ICD9-CM Code [id number] Code Onset Dates Condition Status SNOMED Code Problem Referred by primary care physician Z76.89 Active 3624649438661 Problem Posttraumatic stress disorder F43.10 Active 49321561 Problem Mood disorder F39 Active 09563908 Problem Other acute pulmonary embolism without acute cor pulmonale I26.99 Active 875400852 Problem Severe episode of recurrent major depressive disorder, without psychotic features F33.2 Active 05729577 Problem Trigeminal neuralgia of right side of face G50.0 Active 88457127 Problem Panic attacks F41.0 Active 678999078 Problem Personality disorder in adult F60.9 Active 60285990 Problem Chronic pain disorder G89.4 Active 754387362 ALLERGIES Unknown Allergies SOCIAL HISTORY No smoking Hx information available PLAN OF CARE VITAL SIGNS MEDICATIONS Medication Instructions Dosage Frequency Start Date End Date Duration Status Tramadol HCl 50 mg Orally 3 times a day 1 tablet as needed 8h 28 days Active RESULTS No Results PROCEDURES No Known procedures IMMUNIZATIONS No Known Immunizations
--- OUTSIDE RECORDS SUMMARY | 2017-08-17 12:23 | XMS REPORT | Clinical Summary ---
Author Author [facility] Organization [facility] Address Unknown Phone Unavailable Care Team Providers Care Business Solutions Consultant Name Role Phone RamonMarla hawkins MAIL ROOM CLERK PCP Source Comments Some departments are not documenting in the electronic medical record. If you do not see the information that you expected, contact Release of Information in the Health Information Management department at [phone] for further assistance in locating additional records.[facility] Allergies No Known Allergies Current Medications Prescription Sig. Disp. Refills Start End Date Status Date gabapentin (NEURONTIN) Take 1,600 mg by mouth Active 300 mg capsule three times daily. TOPIRAMATE (TOPAMAX PO) Take 100 mg by mouth Active twice daily. amitriptyline (ELAVIL) Take 150 mg by mouth at Active 150 mg tablet bedtime daily. baclofen (LIORESAL) 10 mg Take 10 mg by mouth three Active tablet times daily. ACETAMINOPHEN (TYLENOL 8 Take 500 mg by mouth Active HOUR PO) three times daily. carBAMazepine (TEGRETOL) Take 200 mg by mouth Active 200 mg tabletIndications: three times daily. Patient taking twice Indications: Patient daily taking twice daily lamoTRIgine (LAMICTAL) 25 Take 100 mg by mouth Active mg tablet twice daily. Active Problems No known active problems [...] Vital Sign Reading Time Taken Blood Pressure 162/77 03/04/2017 3:44 PM CDT Pulse 86 03/04/2017 3:44 PM CDT Temperature 36.8 C (98.2 F) 06/06/2016 1:24 PM OUTBOUND SALES SPECIALIST Respiratory Rate - - Oxygen Saturation 100% 03/04/2017 3:44 PM CDT Inhaled Oxygen - - Concentration Weight 83.2 kg (183 lb 6.4 oz) 03/04/2017 3:44 PM CDT Height 170.2 cm (5' 7.01") 03/04/2017 3:44 PM CDT Body Mass Index 28.72 03/04/2017 3:44 PM CDT Plan of Treatment Health Maintenance Due Date Last Done Comments HEPATITIS C SCREENING 1963 PHYSICAL (COMPREHENSIVE) 08/24/1970 EXAM PERTUSSIS VACCINE 08/24/1974 HIV SCREENING 08/24/1978 TETANUS VACCINE 08/24/1980 CERVICAL CANCER SCREENING 08/24/1993 BREAST CANCER SCREENING 2003 COLORECTAL CANCER 08/24/2013 SCREENING INFLUENZA VACCINE 02/02/2018 Results Not on filefrom Last 3 Months
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
--- OUTSIDE RECORDS SUMMARY | 2017-08-17 12:24 | XMS REPORT ---
Author Author [facility] Address [address] [place] [address] Care Team Providers Care Commis Chef Name Role Phone SHANNA GALLARDOYAMILKA Unavailable PROBLEMS Type Condition ICD9-CM Code [id number] Code Onset Dates Condition Status SNOMED Code Problem Referred by primary care physician Z76.89 Active 1956501182821 Problem Posttraumatic stress disorder F43.10 Active 24674604 Problem Mood disorder F39 Active 05613377 Problem Other acute pulmonary embolism without acute cor pulmonale I26.99 Active 322532187 Problem Severe episode of recurrent major depressive disorder, without psychotic features F33.2 Active 14403885 Problem Trigeminal neuralgia of right side of face G50.0 Active 25212032 Problem Panic attacks F41.0 Active 492277140 Problem Personality disorder in adult F60.9 Active 20680169 Problem Chronic pain disorder G89.4 Active 841409008 ALLERGIES No Known Allergies SOCIAL HISTORY Never Assessed PLAN OF CARE Activity Details Follow Up 4 Weeks Reason: VITAL SIGNS Height 68 in 2016-09-18 Weight 185.6 lbs 2016-09-18 Heart Rate 116 bpm 2016-09-18 Respiratory Rate 20 2016-09-18 BMI 28.22 kg/m2 2016-09-18 Blood pressure systolic 140 mmHg 2016-09-18 Blood pressure diastolic 81 mmHg 2016-09-18 MEDICATIONS Medication Instructions Dosage Frequency Start Date End Date Duration Status Macrobid 100 MG Orally every 12 hrs 1 capsule with food 12h Active Lamotrigine 25 MG Orally Twice a day 3 tablets 12h 30 days Active Gabapentin 800 MG Orally 3 times a day 1 tablet 8h 90 days Active BusPIRone HCl 10 MG Orally Three times a day as needed 1 tablet Mar, 30 days Active Eliquis 5 mg Orally 2 tablets twice daily until 07/20/16 then take 1 tablet 2 times a day as directed Jul, 90 days Active tylenol 500 mg Oral 3 times a day 1 tab 8h Active Carbamazepine 200 MG Orally 3 times a day 1 tablet 8h 30 days Active Amitriptyline HCl 150 MG Orally Once a day 1 tablet 24h 25 Nov, 2015 90 days Active Baclofen 10 MG Orally Three times a day 1 tablet with food or milk 8h 30 days Active Topamax 50 mg Orally Twice a day 1 tablet 12h 90 days Active RESULTS No Results PROCEDURES No [...]
--- OUTSIDE RECORDS SUMMARY | 2017-08-17 12:24 | XMS REPORT ---
Author Author MASSIMO BOYD [facility] Address [address] [place] [address] Care Team Providers Care Wrist Closer Name Role Phone MASSIMO BOYD Unavailable PROBLEMS Type Condition ICD9-CM Code [id number] Code Onset Dates Condition Status SNOMED Code Problem Referred by primary care physician Z76.89 Active 8981097135437 Problem Posttraumatic stress disorder F43.10 Active 21586658 Problem Mood disorder F39 Active 58468731 Problem Other acute pulmonary embolism without acute cor pulmonale I26.99 Active 710995020 Problem Severe episode of recurrent major depressive disorder, without psychotic features F33.2 Active 02456667 Problem Trigeminal neuralgia of right side of face G50.0 Active 24409968 Problem Panic attacks F41.0 Active 956752088 Problem Personality disorder in adult F60.9 Active 33398019 Problem Chronic pain disorder G89.4 Active 754806973 ALLERGIES No Information SOCIAL HISTORY Never Assessed PLAN OF CARE VITAL SIGNS MEDICATIONS Unknown [...]
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
--- OUTSIDE RECORDS SUMMARY | 2017-08-17 12:25 | XMS REPORT ---
Author Author MASSIMO BOYD [facility] Address [address] [place] [address] Care Team Providers Care Bottom Scrubber Name Role Phone MASSIMO BOYD Unavailable PROBLEMS Type Condition ICD9-CM Code [id number] Code Onset Dates Condition Status SNOMED Code Problem Referred by primary care physician Z76.89 Active 8091730360702 Problem Posttraumatic stress disorder F43.10 Active 39010389 Problem Mood disorder F39 Active 83875630 Problem Other acute pulmonary embolism without acute cor pulmonale I26.99 Active 294090428 Problem Severe episode of recurrent major depressive disorder, without psychotic features F33.2 Active 78117555 Problem Trigeminal neuralgia of right side of face G50.0 Active 93081340 Problem Panic attacks F41.0 Active 025360753 Problem Personality disorder in adult F60.9 Active 35485166 Problem Chronic pain disorder G89.4 Active 321003931 ALLERGIES Unknown Allergies SOCIAL HISTORY No smoking Hx information available PLAN OF CARE VITAL SIGNS MEDICATIONS Unknown Medications RESULTS No Results PROCEDURES No Known procedures IMMUNIZATIONS No Known Immunizations
--- OUTSIDE RECORDS SUMMARY | 2017-08-17 12:25 | XMS REPORT ---
Author Author JAVIER SANDOVAL Organization [facility] Address [address] [place] [address] Care Team Providers Care Insurance Loss Assessor Name Role Phone JAVIER SANDOVAL Unavailable PROBLEMS Type Condition ICD9-CM Code [id number] Code Onset Dates Condition Status SNOMED Code Problem Referred by primary care physician Z76.89 Active 0197953129662 Problem Posttraumatic stress disorder F43.10 Active 55699190 Problem Mood disorder F39 Active 11681286 Problem Other acute pulmonary embolism without acute cor pulmonale I26.99 Active 695311263 Problem Severe episode of recurrent major depressive disorder, without psychotic features F33.2 Active 14617384 Problem Trigeminal neuralgia of right side of face G50.0 Active 85431029 Problem Panic attacks F41.0 Active 668250156 Problem Personality disorder in adult F60.9 Active 55555981 Problem Chronic pain disorder G89.4 Active 892732591 ALLERGIES Substance Reaction Event Type Date Status N.K.D.A. Unknown Non Drug Allergy May, Unknown SOCIAL HISTORY No smoking Hx information available PLAN OF CARE Activity Details Follow Up prn Reason: VITAL SIGNS Height 68 in 2016-05-30 Weight 199 lbs 2016-05-30 Temperature 97.9 degrees Fahrenheit 2016-05-30 Heart Rate 90 bpm 2016-05-30 Respiratory Rate 20 2016-05-30 BMI 30.25 kg/m2 2016-05-30 Blood pressure systolic 124 mmHg 2016-05-30 Blood pressure diastolic 80 mmHg 2016-05-30 MEDICATIONS Medication Instructions Dosage Frequency Start Date End Date Duration Status Atorvastatin Calcium 40 MG TAKE ONE-HALF TABLET BY MOUTH ONCE DAILY AT BEDTIME 90 Active Carbamazepine 200 mg Orally 3 times a day 1 tablet 8h 30 days Active Sertraline HCl 100 MG Orally Once a day 1.5 tablet 24h Feb, 30 days Active Amitriptyline HCl 150 MG Orally Once a day 1 tablet 24h Nov, 30 days Active Gabapentin 800 MG Orally 3 times a day 1 tablet 8h 30 Active Lamotrigine 25 MG Orally Twice a day 3 tablets 12h 30 days Active BusPIRone HCl 10 MG Orally Three times a day as needed 1 tablet Mar, 30 days Active Topamax 50 mg Orally Twice a day 1 tablet 12h 90 days Active Tramadol HCl 50 mg Orally 3 times a day 1 tablet as needed 8h 28 days Active Baclofen 10 mg Orally Three times a day 1 tablet with food or milk 8h 90 days Active HydrOXYzine HCl 25 MG Orally three times a day 1 tablet as needed 8h Nov 30 days Active RESULTS No Results PROCEDURES Procedure Date Ordered Related Diagnosis Body Site Office Visit, Est Pt., Level 3 May 30, 2016 IMMUNIZATIONS No Known Immunizations
--- OUTSIDE RECORDS SUMMARY | 2017-08-17 12:25 | XMS REPORT ---
Author Author MASSIMO BOYD [facility] Address [address] [place] [address] Care Team Providers Care Human Resources Compensation Analyst Name Role Phone MASSIMO BOYD Unavailable PROBLEMS Type Condition ICD9-CM Code [id number] Code Onset Dates Condition Status SNOMED Code Problem Referred by primary care physician Z76.89 Active 2349301466214 Problem Posttraumatic stress disorder F43.10 Active 13715775 Problem Mood disorder F39 Active 57144437 Problem Other acute pulmonary embolism without acute cor pulmonale I26.99 Active 228888717 Problem Severe episode of recurrent major depressive disorder, without psychotic features F33.2 Active 97309330 Problem Trigeminal neuralgia of right side of face G50.0 Active 00247559 Problem Panic attacks F41.0 Active 365212394 Problem Personality disorder in adult F60.9 Active 26431712 Problem Chronic pain disorder G89.4 Active 409233624 ALLERGIES No Information SOCIAL HISTORY Never Assessed [...]
--- OUTSIDE RECORDS SUMMARY | 2017-08-17 12:25 | XMS REPORT ---
Author Author ANUM TURCIOS Organization [facility] Address Unknown Care Team Providers Care Wet End Tester Name Role Phone KAROLINAANUM Unavailable PROBLEMS Type Condition ICD9-CM Code [id number] Code Onset Dates Condition Status SNOMED Code Problem Referred by primary care physician Z76.89 Active [id number] Problem Posttraumatic stress disorder F43.10 Active 63997263 Problem Mood disorder F39 Active 29293623 Problem Other acute pulmonary embolism without acute cor pulmonale I26.99 Active 772690413 Problem Severe episode of recurrent major depressive disorder, without psychotic features F33.2 Active 00269282 Problem Trigeminal neuralgia of right side of face G50.0 Active 32567035 Problem Panic attacks F41.0 Active 295035470 Problem Personality disorder in adult F60.9 Active 40207773 Problem Chronic pain disorder G89.4 Active 658308908 ALLERGIES Substance Reaction Event Type Date Status N.K.D.A. Unknown Non Drug Allergy Apr, Unknown SOCIAL HISTORY No smoking Hx information available PLAN OF CARE Activity Details Follow Up 2 Months Reason: VITAL SIGNS Height 68 in 2016-04-17 Weight 200.0 lbs 2016-04-17 Heart Rate 100 bpm 2016-04-17 Respiratory Rate 22 2016-04-17 BMI 30.41 kg/m2 2016-04-17 Blood pressure systolic 101 mmHg 2016-04-17 Blood pressure diastolic 66 mmHg 2016-04-17 MEDICATIONS Medication Instructions Dosage Frequency Start Date End Date Duration Status BusPIRone HCl 10 MG Orally Three times a day as needed 1 tablet Mar, 30 days Active Amitriptyline HCl 150 MG Orally Once a day 1 tablet 24h Nov, 30 days Active Klonopin 1 MG Orally as needed Twice a day 1 tablet 12h Apr, 30 days Active Topamax 50 mg Orally Twice a day 1 tablet 12h 90 days Active Lamotrigine 25 MG Orally Twice a day 3 tablets 12h 30 days Active Atorvastatin Calcium 40 mg Orally Once a day 0.5 tablet at bedtime 24h 90 Active HydrOXYzine HCl 25 MG Orally three times a day 1 tablet as needed 8h Nov 30 days Active Cymbalta 60 MG Orally Once a day 1 capsule 24h Apr, 30 day(s) Active Gabapentin 800 MG Orally 3 times a day 1 tablet 8h Active Carbamazepine 200 mg Orally 3 times a day 1 tablet 8h Active Tramadol HCl 50 mg Orally 3 times a day 1 tablet as needed 8h 28 days Active Baclofen 10 mg Orally Three times a day 1 tablet with food or milk 8h 90 days Active RESULTS No Results PROCEDURES Procedure Date Ordered Related Diagnosis Body Site Office Visit, Est Pt., Level 3 Apr 17, 2016 IMMUNIZATIONS No Known Immunizations
--- OUTSIDE RECORDS SUMMARY | 2017-08-17 12:25 | XMS REPORT ---
Author Author EMILIA GALLARDO [facility] Address [address] [place] [address] Care Team Providers Care Nursing Secretary Name Role Phone EMILIA GALLARDO Unavailable PROBLEMS Type Condition ICD9-CM Code BNV17-TQ Code Onset Dates Condition Status SNOMED Code Problem Referred by primary care physician Z76.89 Active 4871062722633 Problem Posttraumatic stress disorder F43.10 Active 77338683 Problem Mood disorder F39 Active 67132454 Problem Other acute pulmonary embolism without acute cor pulmonale I26.99 Active 654547113 Problem Severe episode of recurrent major depressive disorder, without psychotic features F33.2 Active 55541913 Problem Trigeminal neuralgia of right side of face G50.0 Active 93401661 Problem Panic attacks F41.0 Active 660480751 Problem Personality disorder in adult F60.9 Active 57223387 Problem Chronic pain disorder G89.4 Active [id number] ALLERGIES No Information ENCOUNTERS Encounter Location Date Diagnosis [facility] [id number] [place] [address] 16951- 0385 Feb, [facility] [id number] [place] [address] 51874- 5793 Jan, [facility] [id number] [place] [address] 99001- 3494 Jan, [facility] [id number] [place] [address] 58182- 7570 Jan, [facility] [id number] [place] [address] 72206- 1981 Jan, [facility] [id number] [place] [address] 26879- 3431 Dec, [facility] [id number] [place] [address] 59709- 0044 Dec, Posttraumatic stress disorder F43.10 [facility] [place] [facility] [address] [facility] [place] [id number] [place] [address] Dec, [facility] [address] [facility] [place] [id number], [place] [address]206 Dec, [facility] [address] [facility] [place] [id number] [place] [address] 6756 Dec, [facility] [address] [facility] [place] [id number], [place] [address] Dec, [facility] [address] [facility] [place] [id number] [place] [address] 6049 Dec, [facility] [place] [facility] [address] [facility] [place] [id number] [place] [address]- 7689 Dec, [facility] [address] [id number], [place] [address] 5470 Dec, [facility] [address] [id number], [place] [address] 5269 Dec, [facility] [address] [facility] [place] [id number], [place] [address] 7421 Dec, Posttraumatic stress disorder F43.10 ; Severe episode of recurrent major depressive disorder, without psychotic features F33.2 and Personality disorder in adult F60.9 [facility] [address] [id number], [place] [address] 6185 Nov, [facility] [address] [id number], [place] [address] 2281 Oct, [facility] [place] [facility] [address] [facility] [place] [id number], [place] [address]- 6183 Oct, [facility] [place] [facility] [address] [facility] [place] [id number], [place] [address]- 8425 Oct, [facility] [place] [facility] [address] [id number], [place] [address] 5220 Oct, Posttraumatic stress disorder F43.10 ; Severe episode of recurrent major depressive disorder, without psychotic features F33.2 and Personality disorder in adult F60.9 [facility] [address] [facility] [place] [id number], [place] [address]- 0631 Oct, [facility] [address] [facility] [place] [id number], [place] [address]- 3269 Oct, [facility] [address] [id number], [place] [address]- 2698 September, [facility] [address] [facility] [place] [id number], [place] [address]- 8664 September, [facility] [address] [id number], [place] [address]- 3066 September, [facility] [address] [id number], [place] [address]- 7751 September, [facility] [address], [place] [address]- 3041 September, [facility] [address] [id number], [place] [address]- 1363 September, [facility] [address] [id number], [place] [address]- 8582 September, [facility] [address] [id number], [place] [address]- 5822 September, Posttraumatic stress disorder F43.10 ; Severe episode of recurrent major depressive disorder, without psychotic features F33.2 and Personality disorder in adult F60.9 [facility] [address] [id number], [place] [address]- 3304 September, [facility] [address] [id number], [place] [address]- 9439 September, [facility] [address] [id number], [place] [address]- 0008 September, Other pulmonary embolism without acute cor pulmonale, unspecified chronicity I26.99 [facility] [id number] [address]- 7420 September, [facility] [place] [facility] [address] [id number] [place] [address]- 8141 September, [facility] [place] [facility] [address] [id number] [place] [address]- 6543 September, [facility] [place] [facility] [address] [id number] [place] [address]- 1628 September, [facility] [place] [facility] [address] [id number] [place] [address]- 7188 September, [facility] [place] [facility] [address] [id number] [place] [address]- 3041 Aug, [facility] [place] [facility] [address] [id number] [place] [address]- 5517 Aug, [facility] [place] [facility] [address] [id number] [place] [address]- 4491 Aug, [facility] [place] [facility] [address] [id number] [place] [address]- 7624 Aug, [facility] [place] [facility] [address] [id number] [place] [address]- 1393 Aug, [facility] [place] [facility] [address] [id number] [place] [address]- 2030 Aug, [facility] [place] [facility] [address] [id number] [place] [address]- 8878 Jul, [facility] [place] [facility] [address] [id number] [place] [address]- 1427 Jul, [facility] [place] [facility] [address] [id number] [place] [address]- 9908 Jul, [facility] [address] [id number] [place] [id number] Jul, [facility] [place] [facility] [address] [id number] [place] [address]- 1245 16 Jul, 2016 [facility] [address] [facility] [place] [id number], [place] [address]- 4661 Jul, [facility] [id number], [place] [address] Jul, Other specified bacterial agents as the cause of diseases classified elsewhere B96.89 and Local infection of the skin and subcutaneous tissue, unspecified L08.9 [facility] [address], [place] [address]- 4828 Jul, [facility] [address] [id number], [place] [address]- 0513 Jun, [facility] [id number], [place] [address]- 1843 Jun, [facility] [id number], [place] [address]345 Jun, [facility] [id number], [place] [address]- 2113 Jun, [facility] [id number], [place] [address]- 7850 May, [facility] [id number], [place] [address]- 4004 May, [facility] [id number], [place] [address]- 1968 May, Neurodermatitis L28.0 [facility] [id number], [place] [address]- 8535 May, [facility] [id number], [place] [address]- 0303 May, [facility] [id number], [place] [address]- 6911 May, [facility] [address] [id number], [place] [address]- 4718 May, [facility] [id number], [place] [address]- 2122 May, Screening, lipid Z13.220 and High risk medication use Z79.899 [facility] [id number] [place] [address] 67369- 0026 May, [facility] [id number] [place] [address] 40373- 2743 May, [facility] [id number] [place] [address] 76855- 0843 May, [facility] [id number] [place] [address] 22446- 2516 Apr, [facility] [id number] [place] [address] 07983- 0424 Apr, [facility] [id number] [place] [address] 27613- 2114 Apr, [facility] [id number] [place] [address] 11114- 9990 Apr, [facility] [id number] [place] [address] 44376- 4470 Apr, Posttraumatic stress disorder F43.10 and Trigeminal neuralgia of right side of face G50.0 [facility] [id number], [place] [address]- 9858 Apr, [facility] [id number], [place] [address]- 2543 Apr, [facility] [id number], [place] [address]- 2968 Apr, [facility] [id number] [place] [address] 78508- 1560 Mar, Trigeminal neuralgia of right side of face G50.0 [facility] [id number], [place] [address]- 6577 Mar, [facility] [address] [id number], [place] [address]- 8202 Mar, Posttraumatic stress disorder F43.10 and Mood disorder F39 [facility] [id number] [place] [address] 31563- 5856 Mar, [facility] [address] [id number], [place] [address] 2546 Mar, [facility] [id number] [place] [address] 77982- 2126 Mar, [facility] [id number] [place] [address] 87545- 6406 08 Mar, 2016 [facility] [id number] [place] [address] 68279- 9176 Mar, [facility] [id number] [place] [address] 32642- 4541 Mar, Posttraumatic stress disorder F43.10 and Mood disorder F39 [facility] [id number] [place] [address] 03582- 2196 Mar, Chronic pain disorder G89.4 [facility] [id number] [place] [address] 04955 2546 Feb, Chronic pain disorder G89.4 [facility] [address], [place] [address] 2546 Feb, [facility] [id number] [place] [address] 38685- 2546 Feb, [facility] [id number] [place] [address] 17970 2541 Feb, Trigeminal neuralgia of right side of face G50.0 [facility] [id number] [place] [address] 28391 2546 Feb, [facility] [address], [place] [address]- 4446 Feb, Posttraumatic stress disorder F43.10 ; Mood disorder F39 and Panic attacks F41.0 [facility] [address] [facility] [place] [id number], [place] [address] 2546 Feb, [facility] [address] [facility] [place] [id number] [place] [address] 70706 2546 Feb, [facility] [address] [id number], [place] [address]- 0326 Feb, [facility] [address] [facility] [place] [id number] [place] [address] 72598 2546 27 Jan, 2016 Trigeminal neuralgia of right side of face G50.0 [facility] [id number] [place] [address] 31288 2546 Jan, [facility] [id number] [place] [address] 26896 2546 Jan, [facility] [id number] [place] [address] 45360 254 Jan, Trigeminal neuralgia of right side of face G50.0 [facility] [address] [id number], [place] [address] 2546 Jan, Trigeminal neuralgia of right side of face G50.0 [facility] [id number], [place] [address] 2546 Jan, [facility] [address], [place] [address]- 5162 Dec, [facility] [id number], [place] [address] 2545 Dec, Trigeminal neuralgia of right side of face G50.0 [facility] [address] [facility] [place] [id number], [place] [address] 2546 Dec, [facility] [id number], [place] [address] 2546 Nov, Posttraumatic stress disorder F43.10 ; Mood disorder F39 and Panic attacks F41.0 [facility] [address], [place] [address]- 9879 Nov, Posttraumatic stress disorder F43.10 and Mood disorder F39 [facility] [id number] [place] [address] 07378- 7860 Nov, [facility] [address], [place] [address]- 8206 Nov, [facility] [id number] [place] [address] 48342- 6820 Nov, Confused R41.0 and Mood disorder F39 [facility] [id number] [place] [address] 77341- 0599 Oct, Mood disorder F39 ; Posttraumatic stress disorder F43.10 and Dementia associated with other underlying disease with behavioral disturbance F02.81 [facility] [address], [place] [address]- 4063 Oct, [facility] [id number] [place] [address] 85520- 2309 Oct, [facility] [id number] [place] [address] 77579- 0935 Oct, [facility] [id number] [place] [address] 01218- 9904 Oct, [facility] [address], [place] [address]- 8441 Oct, Posttraumatic stress disorder F43.10 and Mood disorder F39 [facility] [address], [place] [address]- 2543 Oct, [facility] [address], [place] [address]- 5476 Oct, Establishing care with new doctor, encounter for Z71.89 [facility] [address], [place] [address]- 5185 Oct, Mood disorder F39 and Posttraumatic stress disorder F43.10 [facility] [id number] [place] [address] 05932- 9118 07 Oct, 2015 Establishing care with new doctor, encounter for Z71.89 and Dysthymia F34.1 [facility] [id number] [place] [address] 47482- 9347 September, Posttraumatic stress disorder F43.10 and Dementia associated with other underlying disease with behavioral disturbance F02.81 [facility] [address] [address]- 0280 September, Mood disorder F39 ; Posttraumatic stress disorder F43.10 ; Generalized anxiety disorder F41.1 ; Panic attacks F41.0 and Social anxiety disorder F40.10 [facility] [id number] [place] [address] 60963- 3845 September, [facility] [id number] [place] [address] 15460 -6049 September, Acute pain of right shoulder M25.511 [facility] [id number] [place] [address] 47296- 5928 September, [facility] [id number] [place] [address] 44982- 5947 September, Posttraumatic stress disorder F43.10 and Mood disorder F39 [facility] [id number] [place] [address] 04117- 5783 Jul, [facility] [id number] [place] [address] 41852- 0593 Jul, Posttraumatic stress disorder F43.10 and Mood disorder F39 [facility] [id number] [place] [address] 25106- 6762 Jul, Mood disorder F39 and Posttraumatic stress disorder F43.10 [facility] [id number] [place] [address] 55010- 4948 Jul, Posttraumatic stress disorder F43.10 and Mood disorder F39 [facility] [id number] [place] [address] 12789- 7471 Jun, Posttraumatic stress disorder F43.10 and Mood disorder F39 IMMUNIZATIONS No Known Immunizations SOCIAL HISTORY Never Assessed REASON FOR VISIT appointment PLAN OF CARE VITAL SIGNS MEDICATIONS Unknown Medications RESULTS No Results PROCEDURES No Known procedures INSTRUCTIONS MEDICATIONS ADMINISTERED No Known Medications MEDICAL (GENERAL) HISTORY Type Description Date Medical [...]
--- OUTSIDE RECORDS SUMMARY | 2017-08-17 12:26 | XMS REPORT ---
Author Author MASSIMO BOYD [facility] Address [address] [place] [address] Care Team Providers Care Ross Lift Operator Name Role Phone MASSIMO BOYD Unavailable PROBLEMS Type Condition ICD9-CM Code ENS48-UT Code Onset Dates Condition Status SNOMED Code Problem Referred by primary care physician Z76.89 Active 9817544838260 Problem Posttraumatic stress disorder F43.10 Active 52198151 Problem Mood disorder F39 Active 44902053 Problem Other acute pulmonary embolism without acute cor pulmonale I26.99 Active 463674572 Problem Severe episode of recurrent major depressive disorder, without psychotic features F33.2 Active 79347132 Problem Trigeminal neuralgia of right side of face G50.0 Active 18386810 Problem Panic attacks F41.0 Active 836498311 Problem Personality disorder in adult F60.9 Active 36789359 Problem Chronic pain disorder G89.4 Active 770016144 ALLERGIES No Information SOCIAL HISTORY Never Assessed [...]
--- OUTSIDE RECORDS SUMMARY | 2017-08-17 12:26 | XMS REPORT ---
Author Author MASSIMO BOYD [facility] Address [address] [place] [address] Care Team Providers Care Copyman Name Role Phone MASSIMO BOYD Unavailable PROBLEMS Type Condition ICD9-CM Code [id number] Code Onset Dates Condition Status SNOMED Code Problem Referred by primary care physician Z76.89 Active 6852050004225 Problem Posttraumatic stress disorder F43.10 Active 89064470 Problem Mood disorder F39 Active 80374912 Problem Other acute pulmonary embolism without acute cor pulmonale I26.99 Active 259165229 Problem Severe episode of recurrent major depressive disorder, without psychotic features F33.2 Active 89655795 Problem Trigeminal neuralgia of right side of face G50.0 Active 67797639 Problem Panic attacks F41.0 Active 704741515 Problem Personality disorder in adult F60.9 Active 03921479 Problem Chronic pain disorder G89.4 Active 519076316 ALLERGIES No Information SOCIAL HISTORY Never Assessed [...]
--- OUTSIDE RECORDS SUMMARY | 2017-08-17 12:26 | XMS REPORT ---
Author Author MASSIMO BOYD [facility] Address [address] [place] [address] Care Team Providers Care Business Intelligence Administrator Name Role Phone MASSIMO BOYD Unavailable PROBLEMS Type Condition ICD9-CM Code SER67-ZM Code Onset Dates Condition Status SNOMED Code Problem Referred by primary care physician Z76.89 Active 4226023690813 Problem Posttraumatic stress disorder F43.10 Active 09474099 Problem Mood disorder F39 Active 95945368 Problem Other acute pulmonary embolism without acute cor pulmonale I26.99 Active 931872275 Problem Severe episode of recurrent major depressive disorder, without psychotic features F33.2 Active 37192114 Problem Trigeminal neuralgia of right side of face G50.0 Active 64539500 Problem Panic attacks F41.0 Active 210718802 Problem Personality disorder in adult F60.9 Active 72875331 Problem Chronic pain disorder G89.4 Active 332881718 ALLERGIES No Information ENCOUNTERS Encounter Location Date Diagnosis [facility] [id number] [place] [address] 63734- 9235 Feb, [facility] [id number] [place] [address] 50297- 8588 Jan, [facility] [id number] [place] [address] 94894- 3997 Jan, [facility] [id number] [place] [address] 44902- 9443 Jan, [facility] [id number] [place] [address] 19490- 2666 Jan, [facility] [id number] [place] [address] 27328- 2488 Dec, [facility] [id number] [place] [address] 64114- 3058 Dec, Posttraumatic stress disorder F43.10 [facility] [address] [address] Dec, [facility] [id number] [address] 1061 Dec, [facility] [address] [address] Dec, [facility] [id number] [place] [address] 39512- 6910 Dec, [facility] [id number] [place] [address] 98582- 7185 Dec, [facility] [id number] [place] [address] 62070- 1937 Dec, [facility] [id number] [place] [address] 08541- 8937 Dec, [facility] [address] [address] 3953 Dec, [facility] [address] [address] 5164 Dec, Posttraumatic stress disorder F43.10 ; Severe episode of recurrent major depressive disorder, without psychotic features F33.2 and Personality disorder in adult F60.9 [facility] [address] [address] 6116 Nov, [facility] [address] [address] 0021 Oct, [facility] [address] [address]- 4498 Oct, [facility] [address] [address]- 5370 Oct, [facility] [address] [address]- 7829 Oct, Posttraumatic stress disorder F43.10 ; Severe episode of recurrent major depressive disorder, without psychotic features F33.2 and Personality disorder in adult F60.9 [facility] [address] [facility] [id number] [place] [address]- 3720 Oct, [facility] [address] [facility] [id number] [place] [address]- 7984 Oct, [facility] [address] [facility] [id number] [place] [address]- 3560 September, [facility] [address] [id number] [place] [address]- 3536 September, [facility] [address] [facility] [id number] [place] [address]- 0675 September, [facility] [address] [facility] [id number] [place] [address]- 8917 September, [facility] [id number] [place] [address]- 7938 September, [facility] [id number] [place] [address]- 5260 September, [facility] [id number] [address]- 4132 September, [facility] [id number] [address]- 6629 September, Posttraumatic stress disorder F43.10 ; Severe episode of recurrent major depressive disorder, without psychotic features F33.2 and Personality disorder in adult F60.9 [facility] [address] [facility] [id number] [address] 2711 September, [facility] [id number] [place] [address]- 8797 September, [facility] [address] [facility] [id number] [place] [address]- 0576 September, Other pulmonary embolism without acute cor pulmonale, unspecified chronicity I26.99 [facility] [place] [facility] [address] [id number] [place] [address]- 8606 September, [facility] [place] [facility] [address] [id number] [place] [address]- 0707 September, [facility] [place] [facility] [address] [id number] [place] [address] 2546 September, [facility] [place] [facility] [address] [id number] [place] [address]- 6626 September, [facility] [place] [facility] [address] [id number] [place] [address]- 5192 September, [facility] [place] [facility] [address] [id number] [place] [address]- 9269 Aug, [facility] [place] [facility] [address] [id number] [place] [address]- 7558 Aug, [facility] [place] [facility] [address] [id number] [place] [address]- 5314 Aug, [facility] [place] [facility] [address] [id number] [place] [address]- 9528 Aug, [facility] [place] [facility] [address] [id number] [place] [address]- 6908 Aug, [facility] [place] [facility] [address] [id number] [place] [address]- 9350 Aug, [facility] [place] [facility] [address] [id number] [place] [address]- 3456 Jul, [facility] [place] [facility] [address] [id number] [place] [address]- 6764 Jul, [facility] [place] [facility] [address] [id number] [place] [address]- 5597 Jul, [facility] [address] [id number] [place] [id number] Jul, [facility] [place] [facility] [address] [id number] [place] [address] Jul, [facility] [id number] [address]- 5751 Jul, [facility] [address] [address] Jul, Other specified bacterial agents as the cause of diseases classified elsewhere B96.89 and Local infection of the skin and subcutaneous tissue, unspecified L08.9 [facility] [address] [address]- 7304 Jul, [facility] [id number] [address]- 6976 Jun, [facility] [address] [address]- 3574 Jun, [facility] [address] [address] Jun, [facility] [address] [address]- 1229 Jun, [facility] [id number] [address]- 1281 May, [facility] [address] [address]- 5560 May, [facility] [id number] [address]- 1943 May, Neurodermatitis L28.0 [facility] [id number] [address]- 9927 May, [facility] [id number] [address]- 1586 May, [facility] [address] [address]- 9062 May, [facility] [id number] [address]- 5013 May, [facility] [address], [place] [address]- 2161 May, Screening, lipid Z13.220 and High risk medication use Z79.899 [facility] [address] [address]- 5176 May, [facility] [address] [address]- 6542 May, [facility] [id number] [place] [address] 68229- 8062 May, [facility] [id number] [place] [address] 55944- 1352 Apr, [facility] [id number] [place] [address] 40132- 7526 Apr, [facility] [id number] [place] [address] 95927- 9951 Apr, [facility] [id number] [place] [address] 68650- 5246 Apr, [facility] [id number] [place] [address] 68991- 6471 Apr, Posttraumatic stress disorder F43.10 and Trigeminal neuralgia of right side of face G50.0 [facility] [address] [address]- 9180 Apr, [facility] [address], [place] [address] 2542 Apr, [facility] [address], [place] [address]- 5154 Apr, [facility] [id number] [address]- 6609 Mar, Trigeminal neuralgia of right side of face G50.0 [facility] [address] [address]- 7460 Mar, [facility] [id number] [address]- 1506 Mar, Posttraumatic stress disorder F43.10 and Mood disorder F39 [facility] [address] [facility] [id number], [place] [address] 2546 Mar, [facility] [address] [facility] [id number], [place] [address] 2546 Mar, [facility] [address] [facility] [id number] [place] [address] 88828 2546 Mar, [facility] [address] [facility] [id number] [place] [address] 44949 2546 Mar, [facility] [address] [facility] [id number] [place] [address] 44497 2546 Mar, [facility] [id number] [address]- 4886 Mar, Posttraumatic stress disorder F43.10 and Mood disorder F39 [facility] [address] [facility] [id number], [place] [address] 2546 Mar, Chronic pain disorder G89.4 [facility] [id number] [address] 2546 Feb, Chronic pain disorder G89.4 [facility] [id number] [address] 2546 Feb, [facility] [address], [place] [address] 2546 Feb, [facility] [id number], [place] [address] 2546 Feb, Trigeminal neuralgia of right side of face G50.0 [facility] [id number], [place] [address] 2546 Feb, [facility] [address] [facility] [id number], [place] [address] 2546 Feb, Posttraumatic stress disorder F43.10 ; Mood disorder F39 and Panic attacks F41.0 [facility] [address] [facility] [id number], [place] [address] 2546 13 Feb, 2016 [facility] [address] [facility] [id number] [place] [address] 11277 2546 Feb, [facility] [address] [facility] [id number], [place] [address] 2546 Feb, [facility] [address] [facility] [id number] [place] [address] 70022 2546 27 Jan, 2016 Trigeminal neuralgia of right side of face G50.0 [facility] [id number] [place] [address] 14718 2546 Jan, [facility] [address] [facility] [id number] [place] [address] 02280 2546 Jan, [facility] [id number] [place] [address] 92178 2546 Jan, Trigeminal neuralgia of right side of face G50.0 [facility] [address] [facility] [id number], [place] [address] 2546 Jan, Trigeminal neuralgia of right side of face G50.0 [facility] [address] [facility] [id number], [place] [address] 2546 Jan, [facility] [id number], [place] [address] 2546 Dec, [facility] [address] [facility] [id number], [place] [address] 2546 Dec, Trigeminal neuralgia of right side of face G50.0 [facility] [address] [facility] [id number], [place] [address] 2546 Dec, [facility] [address] [facility] [id number], [place] [address] 2546 Nov, Posttraumatic stress disorder F43.10 ; Mood disorder F39 and Panic attacks F41.0 [facility] [address], [place] [address]- 8995 Nov, Posttraumatic stress disorder F43.10 and Mood disorder F39 [facility] [id number] [place] [address] 47967- 8436 Nov, [facility] [address] [place] [address] 76806 2546 Nov, [facility] [id number] [place] [address] 27561- 4708 Nov, Confused R41.0 and Mood disorder F39 [facility] [id number] [place] [address] 94801- 7161 Oct, Mood disorder F39 ; Posttraumatic stress disorder F43.10 and Dementia associated with other underlying disease with behavioral disturbance F02.81 [facility] [id number] [place] [address] 29206- 7310 Oct, [facility] [id number] [place] [address] 40775- 9299 Oct, [facility] [id number] [place] [address] 55656- 5835 Oct, [facility] [id number] [place] [address] 94574- 0685 Oct, [facility] [address] [place] [address] 26226- 4480 Oct, Posttraumatic stress disorder F43.10 and Mood disorder F39 [facility] [address], [place] [address]- 7170 Oct, [facility] [id number] [place] [address] 92026- 2038 Oct, Establishing care with new doctor, encounter for Z71.89 [facility] [address], [place] [address]- 8204 Oct, Mood disorder F39 and Posttraumatic stress disorder F43.10 [facility] [id number] [place] [address] 03151- 7219 07 Oct, 2015 Establishing care with new doctor, encounter for Z71.89 and Dysthymia F34.1 [facility] [id number] [place] [address] 64573- 0144 September, Posttraumatic stress disorder F43.10 and Dementia associated with other underlying disease with behavioral disturbance F02.81 [facility] [id number] [place] [address] 63140- 7701 September, Mood disorder F39 ; Posttraumatic stress disorder F43.10 ; Generalized anxiety disorder F41.1 ; Panic attacks F41.0 and Social anxiety disorder F40.10 [facility] [id number] [place] [address] 85232- 2941 September, [facility] [id number] [place] [address] 05827 -7187 September, Acute pain of right shoulder M25.511 [facility] [id number] [place] [address] 51345- 8620 September, [facility] [id number] [place] [address] 92652- 2917 September, Posttraumatic stress disorder F43.10 and Mood disorder F39 [place] [id number] [place] [address] 22936- 8737 Jul, [facility] [id number] [place] [address] 22260- 0663 Jul, Posttraumatic stress disorder F43.10 and Mood disorder F39 [facility] [id number] [place] [address] 71303- 4767 Jul, Mood disorder F39 and Posttraumatic stress disorder F43.10 [facility] [id number] [place] [address] 85559- 9873 Jul, Posttraumatic stress disorder F43.10 and Mood disorder F39 [facility] [id number] [place] [address] 58427- 6766 Jun, Posttraumatic stress disorder F43.10 and Mood disorder F39 IMMUNIZATIONS No Known Immunizations SOCIAL HISTORY Never Assessed REASON FOR VISIT FYI only PLAN OF CARE VITAL SIGNS MEDICATIONS Unknown [...] Spider Bite Hospitalization History AMS, bilat PE, pneumonia-VC 07/12/16
--- OUTSIDE RECORDS SUMMARY | 2017-08-17 12:27 | XMS REPORT ---
Author Author MASSIMO BOYD [facility] Address [address] [place] [address] Care Team Providers Care Lapping Machine Tender Name Role Phone MASSIMO BOYD Unavailable PROBLEMS Type Condition ICD9-CM Code JSE23-BQ Code Onset Dates Condition Status SNOMED Code Problem Referred by primary care physician Z76.89 Active 9714739058225 Problem Posttraumatic stress disorder F43.10 Active 04811614 Problem Mood disorder F39 Active 76089908 Problem Other acute pulmonary embolism without acute cor pulmonale I26.99 Active 341881225 Problem Severe episode of recurrent major depressive disorder, without psychotic features F33.2 Active 04147736 Problem Trigeminal neuralgia of right side of face G50.0 Active 04476744 Problem Panic attacks F41.0 Active 889793008 Problem Personality disorder in adult F60.9 Active 50541453 Problem Chronic pain disorder G89.4 Active 047482105 ALLERGIES No Information SOCIAL HISTORY Never Assessed [...]
--- OUTSIDE RECORDS SUMMARY | 2017-08-17 12:27 | XMS REPORT ---
Author Author ANUM Bonilla Organization [facility] Address Unknown Care Team Providers Care Civil Draftsman Name Role Phone ANUM Bonilla Unavailable PROBLEMS Type Condition ICD9-CM Code JWB87-RY Code Onset Dates Condition Status SNOMED Code Problem Referred by primary care physician Z76.89 Active 8704330198406 Problem Posttraumatic stress disorder F43.10 Active 39922132 Problem Mood disorder F39 Active 71274707 Problem Other acute pulmonary embolism without acute cor pulmonale I26.99 Active 348605082 Problem Severe episode of recurrent major depressive disorder, without psychotic features F33.2 Active 06674757 Problem Trigeminal neuralgia of right side of face G50.0 Active 57266706 Problem Panic attacks F41.0 Active 672232025 Problem Personality disorder in adult F60.9 Active 52294892 Problem Chronic pain disorder G89.4 Active 183748535 ALLERGIES Unknown Allergies SOCIAL HISTORY No smoking Hx information available PLAN OF CARE VITAL SIGNS MEDICATIONS Unknown Medications RESULTS No Results PROCEDURES No Known procedures IMMUNIZATIONS No Known Immunizations
--- OUTSIDE RECORDS SUMMARY | 2017-08-17 12:27 | XMS REPORT ---
Author Author MASSIMO BOYD [facility] Address [address] [place] [address] Care Team Providers Care Joint Machine Operator Name Role Phone MASSIMO BOYD Unavailable PROBLEMS Type Condition ICD9-CM Code [id number] Code Onset Dates Condition Status SNOMED Code Problem Referred by primary care physician Z76.89 Active 1385561790660 Problem Posttraumatic stress disorder F43.10 Active 82775581 Problem Mood disorder F39 Active 31770426 Problem Other acute pulmonary embolism without acute cor pulmonale I26.99 Active 091302052 Problem Severe episode of recurrent major depressive disorder, without psychotic features F33.2 Active 11342154 Problem Trigeminal neuralgia of right side of face G50.0 Active 82730104 Problem Panic attacks F41.0 Active 927903360 Problem Personality disorder in adult F60.9 Active 41674601 Problem Chronic pain disorder G89.4 Active 507903837 ALLERGIES Unknown Allergies SOCIAL HISTORY No smoking Hx information available PLAN OF CARE VITAL SIGNS MEDICATIONS Medication Instructions Dosage Frequency Start Date End Date Duration Status Tramadol HCl 50 mg Orally 3 times a day 1 tablet as needed 8h 28 days Active RESULTS No Results PROCEDURES No Known procedures IMMUNIZATIONS No Known Immunizations
--- OUTSIDE RECORDS SUMMARY | 2017-08-17 12:27 | XMS REPORT ---
Author Author ANUM Bonilla Organization [facility] Address Unknown Care Team Providers Care Meeting Planner Name Role Phone ANUM Bonilla Unavailable PROBLEMS Type Condition ICD9-CM Code LWR34-JJ Code Onset Dates Condition Status SNOMED Code Problem Referred by primary care physician Z76.89 Active 9575157384827 Problem Posttraumatic stress disorder F43.10 Active 07705642 Problem Mood disorder F39 Active 03259354 Problem Other acute pulmonary embolism without acute cor pulmonale I26.99 Active 576334492 Problem Severe episode of recurrent major depressive disorder, without psychotic features F33.2 Active 02654798 Problem Trigeminal neuralgia of right side of face G50.0 Active 22211630 Problem Panic attacks F41.0 Active 097364402 Problem Personality disorder in adult F60.9 Active 94487616 Problem Chronic pain disorder G89.4 Active 179876393 ALLERGIES Unknown Allergies SOCIAL HISTORY No smoking Hx information available PLAN OF CARE VITAL SIGNS MEDICATIONS Medication Instructions Dosage Frequency Start Date End Date Duration Status Sertraline HCl 100 MG Orally Once a day 1.5 tablet 24h Feb, 30 days Active RESULTS No Results PROCEDURES No Known procedures IMMUNIZATIONS No Known Immunizations
--- OUTSIDE RECORDS SUMMARY | 2017-08-17 12:27 | XMS REPORT ---
Author Author MASSIMO BOYD [facility] Address [address] [place] [address] Care Team Providers Care Geoscience Laboratory Technician Name Role Phone MASSIMO BOYD Unavailable PROBLEMS Type Condition ICD9-CM Code SWW69-JU Code Onset Dates Condition Status SNOMED Code Problem Referred by primary care physician Z76.89 Active 2539470842987 Problem Posttraumatic stress disorder F43.10 Active 06835352 Problem Mood disorder F39 Active 08179911 Problem Other acute pulmonary embolism without acute cor pulmonale I26.99 Active 814956422 Problem Severe episode of recurrent major depressive disorder, without psychotic features F33.2 Active 53507557 Problem Trigeminal neuralgia of right side of face G50.0 Active 28009352 Problem Panic attacks F41.0 Active 047208167 Problem Personality disorder in adult F60.9 Active 38267441 Problem Chronic pain disorder G89.4 Active 524790642 ALLERGIES Unknown Allergies SOCIAL HISTORY No smoking Hx information available PLAN OF CARE VITAL SIGNS MEDICATIONS Unknown Medications RESULTS No Results PROCEDURES No Known procedures IMMUNIZATIONS No Known Immunizations
--- OUTSIDE RECORDS SUMMARY | 2017-08-17 12:27 | XMS REPORT ---
Author Author MASSIMO BOYD [facility] Address [address] [place] [address] Care Team Providers Care Radiology Resident Name Role Phone MASSIMO BOYD Unavailable PROBLEMS Type Condition ICD9-CM Code [id number] Code Onset Dates Condition Status SNOMED Code Problem Referred by primary care physician Z76.89 Active 2664462029370 Problem Posttraumatic stress disorder F43.10 Active 46965378 Problem Mood disorder F39 Active 97799002 Problem Other acute pulmonary embolism without acute cor pulmonale I26.99 Active 337068644 Problem Severe episode of recurrent major depressive disorder, without psychotic features F33.2 Active 08999847 Problem Trigeminal neuralgia of right side of face G50.0 Active 64369506 Problem Panic attacks F41.0 Active 854160701 Problem Personality disorder in adult F60.9 Active 94410021 Problem Chronic pain disorder G89.4 Active 197969198 ALLERGIES No Information SOCIAL HISTORY Never Assessed PLAN OF CARE VITAL SIGNS MEDICATIONS Medication Instructions Dosage Frequency Start Date End Date Duration Status Sertraline HCl 100 MG Orally Once a day 1.5 tablet 24h Feb, 30 days Active Carbamazepine 200 MG Orally 3 times a day 1 tablet 8h 90 days Active BusPIRone HCl 10 MG Orally Three times a day as needed 1 tablet Mar, 30 days Active Lamotrigine 25 MG Orally Twice a day 3 tablets 12h 30 days Active Baclofen 10 MG Orally Three times a day 1 tablet with food or milk 8h 90 days Active Losartan Potassium 50 MG Orally Once a day 1/2 tablet 24h Active Excedrin Migraine 250-250-65 MG Orally every 6 hrs 2 tablets as needed 6h Active Gabapentin 800 MG Orally 3 times a day 1 tablet 8h 90 days Active Tramadol HCl 50 mg Orally 3 times a day 1 tablet as needed 8h 28 days Active Amitriptyline HCl 150 MG Orally Once a day 1 tablet 24h Nov, 90 days Active tylenol 500 mg Oral 3 times a day 1 tab 8h Active HydrOXYzine HCl 25 MG Orally three times a day 1 tablet as needed 8h Nov 30 days Active Topamax 50 mg Orally Twice a day 1 tablet 12h 90 days Active Docusate Sodium 50 mg/8.6 Orally Once a day at bedtime 1 tablet as needed Active Zonisamide 100 MG Orally Once a day 1 capsule 24h Active RESULTS No Results PROCEDURES No [...] Spider Bite Hospitalization History AMS, bilat PE, pneumonia-[facility] 07/12/16
--- OUTSIDE RECORDS SUMMARY | 2017-08-17 12:27 | XMS REPORT ---
Author Author BRUNA GOODRICH Organization [facility] Address [address] [place] [address] Care Team Providers Care Planer Chain Offbearer Name Role Phone KP BRUNA Unavailable PROBLEMS Type Condition ICD9-CM Code ZZP42-SL Code Onset Dates Condition Status SNOMED Code Problem Referred by primary care physician Z76.89 Active 1584045896227 Problem Posttraumatic stress disorder F43.10 Active 69827882 Problem Mood disorder F39 Active 96392222 Problem Other acute pulmonary embolism without acute cor pulmonale I26.99 Active 491541942 Problem Severe episode of recurrent major depressive disorder, without psychotic features F33.2 Active 07569126 Problem Trigeminal neuralgia of right side of face G50.0 Active 55990150 Problem Panic attacks F41.0 Active 049395989 Problem Personality disorder in adult F60.9 Active 29201879 Problem Chronic pain disorder G89.4 Active 560851955 ALLERGIES No Information SOCIAL HISTORY Never Assessed PLAN OF CARE VITAL SIGNS MEDICATIONS Medication Instructions Dosage Frequency Start Date End Date Duration Status Eliquis 5 mg Orally 2 tablets twice daily until 07/20/16 then take 1 tablet 2 times a day as directed Jul, 90 days Active RESULTS No Results PROCEDURES [...]
--- OUTSIDE RECORDS SUMMARY | 2017-08-17 12:27 | XMS REPORT ---
Author Author MASSIMO BOYD Organization [facility] Address [address] [place] [address] Care Team Providers Care Perioperative Tech Name Role Phone MASSIMO BOYD Unavailable PROBLEMS Type Condition ICD9-CM Code ULO16-DU Code Onset Dates Condition Status SNOMED Code Problem Referred by primary care physician Z76.89 Active 1001555885221 Problem Posttraumatic stress disorder F43.10 Active 22386140 Problem Mood disorder F39 Active 84227575 Problem Other acute pulmonary embolism without acute cor pulmonale I26.99 Active 179451477 Problem Severe episode of recurrent major depressive disorder, without psychotic features F33.2 Active 82989478 Problem Trigeminal neuralgia of right side of face G50.0 Active 69799566 Problem Panic attacks F41.0 Active 266485326 Problem Personality disorder in adult F60.9 Active 57465426 Problem Chronic pain disorder G89.4 Active 330128558 ALLERGIES No Information SOCIAL HISTORY Never Assessed PLAN OF CARE VITAL SIGNS MEDICATIONS Medication Instructions Dosage Frequency Start Date End Date Duration Status Carbamazepine 200 MG Orally 3 times a day 1 tablet 8h 90 days Active Amitriptyline HCl 150 MG Orally Once a day 1 tablet 24h 25 Nov, 2015 90 days Active Gabapentin 800 MG Orally 3 times a day 1 tablet 8h 90 days Active Baclofen 10 MG Orally [...]
--- OUTSIDE RECORDS SUMMARY | 2017-08-17 12:27 | XMS REPORT ---
Author Author MASSIMO BOYD Organization [facility] Address [address] [place] [address] Care Team Providers Care Stockbroker Name Role Phone MASSIMO BOYD Unavailable PROBLEMS Type Condition ICD9-CM Code USW42-IK Code Onset Dates Condition Status SNOMED Code Problem Referred by primary care physician Z76.89 Active 0420598027873 Problem Posttraumatic stress disorder F43.10 Active 31204025 Problem Mood disorder F39 Active 48667846 Problem Other acute pulmonary embolism without acute cor pulmonale I26.99 Active 433517036 Problem Severe episode of recurrent major depressive disorder, without psychotic features F33.2 Active 50771071 Problem Trigeminal neuralgia of right side of face G50.0 Active 30092806 Problem Panic attacks F41.0 Active 356759508 Problem Personality disorder in adult F60.9 Active 26023104 Problem Chronic pain disorder G89.4 Active 380962149 ALLERGIES No Information SOCIAL HISTORY Never Assessed [...]
--- OUTSIDE RECORDS SUMMARY | 2017-08-17 12:27 | XMS REPORT ---
Author Author MASSIMO BOYD [facility] Address [address] [place] [address] Care Team Providers Care Supply Chain Design Manager Name Role Phone MASSIMO BOYD Unavailable PROBLEMS Type Condition ICD9-CM Code JVT08-CD Code Onset Dates Condition Status SNOMED Code Problem Referred by primary care physician Z76.89 Active 5082694313219 Problem Posttraumatic stress disorder F43.10 Active 83758956 Problem Mood disorder F39 Active 51929316 Problem Other acute pulmonary embolism without acute cor pulmonale I26.99 Active 171784971 Problem Severe episode of recurrent major depressive disorder, without psychotic features F33.2 Active 10497355 Problem Trigeminal neuralgia of right side of face G50.0 Active 89441568 Problem Panic attacks F41.0 Active 540869424 Problem Personality disorder in adult F60.9 Active 38237912 Problem Chronic pain disorder G89.4 Active 280690327 ALLERGIES No Information SOCIAL HISTORY Never Assessed [...]
--- OUTSIDE RECORDS SUMMARY | 2017-08-17 12:27 | XMS REPORT ---
Author Author ANUM TURCIOS [facility] Address Unknown Care Team Providers Care Field Sales Representative Name Role Phone ANUM TURCIOS Unavailable PROBLEMS Type Condition ICD9-CM Code KVK21-GH Code Onset Dates Condition Status SNOMED Code Problem Referred by primary care physician Z76.89 Active 5148646311248 Problem Posttraumatic stress disorder F43.10 Active 82666696 Problem Mood disorder F39 Active 17905491 Problem Other acute pulmonary embolism without acute cor pulmonale I26.99 Active 433630930 Problem Severe episode of recurrent major depressive disorder, without psychotic features F33.2 Active 18491173 Problem Trigeminal neuralgia of right side of face G50.0 Active 72334661 Problem Panic attacks F41.0 Active 240042498 Problem Personality disorder in adult F60.9 Active 98456092 Problem Chronic pain disorder G89.4 Active 268797621 ALLERGIES Unknown Allergies SOCIAL HISTORY No smoking Hx information available PLAN OF CARE VITAL SIGNS MEDICATIONS Unknown Medications RESULTS No Results PROCEDURES No Known procedures IMMUNIZATIONS No Known Immunizations
--- OUTSIDE RECORDS SUMMARY | 2017-08-17 12:28 | XMS REPORT ---
Author Author MASSIMO BOYD [facility] Address [address] [place] [address] Care Team Providers Care Ship Yard Electrical Person Name Role Phone MASSIMO BOYD Unavailable PROBLEMS Type Condition ICD9-CM Code [id number] Code Onset Dates Condition Status SNOMED Code Problem Referred by primary care physician Z76.89 Active 1631337279692 Problem Posttraumatic stress disorder F43.10 Active 32599507 Problem Mood disorder F39 Active 32382930 Problem Other acute pulmonary embolism without acute cor pulmonale I26.99 Active 223538859 Problem Severe episode of recurrent major depressive disorder, without psychotic features F33.2 Active 86862684 Problem Trigeminal neuralgia of right side of face G50.0 Active 83620238 Problem Panic attacks F41.0 Active 975131451 Problem Personality disorder in adult F60.9 Active 46198175 Problem Chronic pain disorder G89.4 Active 872355208 ALLERGIES No Information ENCOUNTERS Encounter Location Date Diagnosis [facility] [id number] [place] [address]23- 3267 Feb, [facility] [address], [place] [address] Jan, [facility] [address], [place] [address] 6[address] Jan, [facility] [id number] [place] [address] 40364- 5703 Jan, [facility] [id number] [place] [address] 23987- 9248 Jan, [facility] [id number] [place] [address] 34786- 5958 Dec, [facility] [id number] [place] [address] 76691- 3578 Dec, Posttraumatic stress disorder F43.10 [facility] [address], [place] [address] Dec, [facility] [id number], [place] [address] Dec, [facility] [address] [address] 5180 Dec, [facility] [id number] [place] [address] 83812- 3041 Dec, [facility] [id number] [place] [address] 95103- 1197 Dec, [facility] [id number] [place] [address] 22295- 7814 Dec, [facility] [id number] [place] [address] 33699- 9788 Dec, [facility] [address], [place] [address]- 7155 Dec, [facility] [address], [place] [address] 1221 Dec, Posttraumatic stress disorder F43.10 ; Severe episode of recurrent major depressive disorder, without psychotic features F33.2 and Personality disorder in adult F60.9 [facility] [address], [place] [address] 36[address] Nov, [facility] [address], [place] [address] 4467 Oct, [facility] [address], [place] [address] 6102 Oct, [facility] [address], [place] [address]- 0179 Oct, [facility] [address], [place] [address]- 2267 Oct, Posttraumatic stress disorder F43.10 ; Severe episode of recurrent major depressive disorder, without psychotic features F33.2 and Personality disorder in adult F60.9 [facility] [address] [facility] [id number] [place] [address]- 4666 Oct, [facility] [address] [facility] [id number] [place] [address]- 8621 Oct, [facility] [address] [facility] [id number] [place] [address]- 3667 September, [facility] [address] [id number] [place] [address]- 1905 September, [facility] [address] [facility] [id number] [place] [address]- 6191 September, [facility] [address] [facility] [id number] [place] [address]- 3752 September, [facility] [id number] [place] [address] 2027 September, [facility] [id number] [place] [address]- 6890 September, [facility] [id number] [address]- 8411 September, [facility] [id number] [address]- 2439 September, Posttraumatic stress disorder F43.10 ; Severe episode of recurrent major depressive disorder, without psychotic features F33.2 and Personality disorder in adult F60.9 [facility] [address] [facility] [id number] [address]- 8349 September, [facility] [id number] [place] [address]- 5884 September, [facility] [address] [facility] [id number] [place] [address]- 7815 September, Other pulmonary embolism without acute cor pulmonale, unspecified chronicity I26.99 [facility] [place] [facility] [address] [id number] [place] [address]- 2196 September, [facility] [place] [facility] [address] [id number] [place] [address]- 4555 September, [facility] [place] [facility] [address] [id number] [place] [address] 2546 September, [facility] [place] [facility] [address] [id number] [place] [address]- 4889 September, [facility] [place] [facility] [address] [id number] [place] [address]- 5027 September, [facility] [place] [facility] [address] [id number] [place] [address]- 8147 Aug, [facility] [place] [facility] [address] [id number] [place] [address]- 1688 Aug, [facility] [place] [facility] [address] [id number] [place] [address]- 2720 Aug, [facility] [place] [facility] [address] [id number] [place] [address]- 2233 Aug, [facility] [place] [facility] [address] [id number] [place] [address]- 2860 Aug, [facility] [place] [facility] [address] [id number] [place] [address]- 0474 Aug, [facility] [place] [facility] [address] [id number] [place] [address]- 9275 Jul, [facility] [place] [facility] [address] [id number] [place] [address]- 4251 Jul, [facility] [place] [facility] [address] [id number] [place] [address]- 1677 Jul, [facility] [address] [id number] [place] [id number] Jul, [facility] [place] [facility] [address] [id number] [place] [address] Jul, [facility] [id number], [place] [address]- 4752 Jul, [facility] [address], [place] [address] Jul, Other specified bacterial agents as the cause of diseases classified elsewhere B96.89 and Local infection of the skin and subcutaneous tissue, unspecified L08.9 [facility] [address], [place] [address]- 1677 Jul, [facility] [id number], [place] [address]- 2464 Jun, [facility] [address], [place] [address]- 3032 Jun, [facility] [address], [place] [address] Jun, [facility] [address], [place] [address]- 4685 Jun, [facility] [id number], [place] [address]- 7298 May, [facility] [address], [place] [address]- 6796 May, [facility] [id number], [place] [address]- 8726 May, Neurodermatitis L28.0 [facility] [id number], [place] [address]- 9480 May, [facility] [id number], [place] [address]- 1698 May, [facility] [address], [place] [address]- 3952 May, [facility] [id number], [place] [address]- 2162 May, [facility] [address], [place] [address]- 1498 May, Screening, lipid Z13.220 and High risk medication use Z79.899 [facility] [address], [place] [address]- 6566 May, [facility] [address], [place] [address]- 2763 May, [facility] [id number] [place] [address] 09407- 5323 May, [facility] [id number] [place] [address] 55660- 5862 Apr, [facility] [id number] [place] [address] 47987- 8905 Apr, [facility] [id number] [place] [address] 37713- 9317 Apr, [facility] [id number] [place] [address] 52210- 6936 Apr, [facility] [id number] [place] [address] 73815- 1083 Apr, Posttraumatic stress disorder F43.10 and Trigeminal neuralgia of right side of face G50.0 [facility] [address], [place] [address]- 7250 Apr, [facility] [address], [place] [address] 2542 Apr, [facility] [address], [place] [address]- 3349 Apr, [facility] [address], [place] [address]- 9167 Mar, Trigeminal neuralgia of right side of face G50.0 [facility] [address], [place] [address]- 7867 Mar, [facility] [id number], [place] [address]- 3576 Mar, Posttraumatic stress disorder F43.10 and Mood disorder F39 [facility] [address] [facility] [id number], [place] [address] 2546 Mar, [facility] [address] [facility] [id number], [place] [address] 2546 Mar, [facility] [address] [facility] [id number] [place] [address] 96761 2546 Mar, [facility] [address] [facility] [id number] [place] [address] 72162 2546 Mar, [facility] [address] [facility] [id number] [place] [address] 74638 2546 Mar, [facility] [id number], [place] [address]- 5146 Mar, Posttraumatic stress disorder F43.10 and Mood disorder F39 [facility] [address] [facility] [id number], [place] [address] 2546 Mar, Chronic pain disorder G89.4 [facility] [address], [place] [address] 2546 Feb, Chronic pain disorder G89.4 [facility] [id number], [place] [address] 2546 Feb, [facility] [address], [place] [address] 2546 Feb, [facility] [id number], [place] [address] 2546 Feb, Trigeminal neuralgia of right side of face G50.0 [facility] [id number], [place] [address] 2546 Feb, [facility] [address] [facility] [id number], [place] [address] 2546 Feb, Posttraumatic stress disorder F43.10 ; Mood disorder F39 and Panic attacks F41.0 [facility] [address] [facility] [id number], [place] [address] 2546 13 Feb, 2016 [facility] [address] [facility] [id number] [place] [address] 49630 2546 Feb, [facility] [address] [facility] [id number], [place] [address] 2546 Feb, [facility] [address] [facility] [id number] [place] [address] 29622 2546 27 Jan, 2016 Trigeminal neuralgia of right side of face G50.0 [facility] [id number] [place] [address] 42286 2546 Jan, [facility] [address] [facility] [id number] [place] [address] 56633 2546 Jan, [facility] [id number] [place] [address] 07467 2546 Jan, Trigeminal neuralgia of right side of face G50.0 [facility] [address] [facility] [id number], [place] [address] 2546 Jan, Trigeminal neuralgia of right side of face G50.0 [facility] [address] [facility] [id number], [place] [address] 2546 Jan, [facility] [id number], [place] [address] 2546 Dec, [facility] [address] [facility] [id number], [place] [address] 2546 Dec, Trigeminal neuralgia of right side of face G50.0 [facility] [address] [facility] [id number], [place] [address] 2546 Dec, [facility] [address] [facility] [id number], [place] [address] 2546 Nov, Posttraumatic stress disorder F43.10 ; Mood disorder F39 and Panic attacks F41.0 [facility] [address], [place] [address]- 7276 Nov, Posttraumatic stress disorder F43.10 and Mood disorder F39 [facility] [id number] [place] [address] 08048- 1066 Nov, [facility] [id number] [place] [address] 23152 2546 Nov, [facility] [id number] [place] [address] 47079- 5815 Nov, Confused R41.0 and Mood disorder F39 [facility] [id number] [place] [address] 39389- 3904 Oct, Mood disorder F39 ; Posttraumatic stress disorder F43.10 and Dementia associated with other underlying disease with behavioral disturbance F02.81 [facility] [id number] [place] [address] 02273- 4573 Oct, [facility] [id number] [place] [address] 84946- 2070 Oct, [facility] [id number] [place] [address] 84737- 1640 Oct, [facility] [id number] [place] [address] 96969- 4123 Oct, [facility] [address] [place] [address] 99195- 7655 Oct, Posttraumatic stress disorder F43.10 and Mood disorder F39 [facility] [address], [place] [address]- 2997 Oct, [facility] [id number] [place] [address] 94356- 9018 Oct, Establishing care with new doctor, encounter for Z71.89 [facility] [address], [place] [address]- 9502 Oct, Mood disorder F39 and Posttraumatic stress disorder F43.10 [facility] [id number] [place] [address] 91148- 5127 07 Oct, 2015 Establishing care with new doctor, encounter for Z71.89 and Dysthymia F34.1 [facility] [id number] [place] [address] 95875- 1222 September, Posttraumatic stress disorder F43.10 and Dementia associated with other underlying disease with behavioral disturbance F02.81 [address] [facility] [id number] [place] [address] 61725- 6463 September, Mood disorder F39 ; Posttraumatic stress disorder F43.10 ; Generalized anxiety disorder F41.1 ; Panic attacks F41.0 and Social anxiety disorder F40.10 [place] [facility] [id number] [place] [address] 90373- 1965 September, [facility] [id number] [place] [address] 98728 -5927 September, Acute pain of right shoulder M25.511 [facility] [address] [place] [address] 94853- 4525 September, [facility] [id number] [place] [address] 10250- 0220 September, Posttraumatic stress disorder F43.10 and Mood disorder F39 [facility] [facility] [id number] [place] [address] 37660- 3965 Jul, [facility] [id number] [place] [address] 30461- 0148 Jul, Posttraumatic stress disorder F43.10 and Mood disorder F39 [facility] [id number] [place] [address] 91957- 3814 Jul, Mood disorder F39 and Posttraumatic stress disorder F43.10 [address] [place] [id number] [place] [address] 28423- 0252 Jul, Posttraumatic stress disorder F43.10 and Mood disorder F39 [place] [facility] [id number] [place] [address] 58298- 7566 Jun, Posttraumatic stress disorder F43.10 and Mood disorder F39 IMMUNIZATIONS No Known Immunizations SOCIAL HISTORY Never Assessed REASON FOR VISIT Refill request PLAN OF CARE VITAL SIGNS MEDICATIONS Unknown [...]
--- OUTSIDE RECORDS SUMMARY | 2017-08-17 12:28 | XMS REPORT ---
Author Author MASSIMO BOYD [facility] Address [address] [place] [address] Care Team Providers Care Client Relations Specialist Name Role Phone MASSIMO BOYD Unavailable PROBLEMS Type Condition ICD9-CM Code [id number] Code Onset Dates Condition Status SNOMED Code Problem Referred by primary care physician Z76.89 Active 0630126561524 Problem Posttraumatic stress disorder F43.10 Active 53258405 Problem Mood disorder F39 Active 22509030 Problem Other acute pulmonary embolism without acute cor pulmonale I26.99 Active 115494455 Problem Severe episode of recurrent major depressive disorder, without psychotic features F33.2 Active 66181607 Problem Trigeminal neuralgia of right side of face G50.0 Active 16815176 Problem Panic attacks F41.0 Active 374184374 Problem Personality disorder in adult F60.9 Active 84368491 Problem Chronic pain disorder G89.4 Active 770716429 ALLERGIES No Known Allergies SOCIAL HISTORY Never Assessed PLAN OF CARE Activity Details Follow Up prn Reason: VITAL SIGNS Height 68 in 2016-09-16 Weight 190 lbs 2016-09-16 Temperature 97.7 degrees Fahrenheit 2016-09-16 Heart Rate 78 bpm 2016-09-16 Respiratory Rate 24 2016-09-16 BMI 28.89 kg/m2 2016-09-16 Blood pressure systolic 142 mmHg 2016-09-16 Blood pressure diastolic 72 mmHg 2016-09-16 MEDICATIONS Medication Instructions Dosage Frequency Start Date End Date Duration Status Eliquis 5 mg Orally 2 tablets twice daily until 07/20/16 then take 1 tablet 2 times a day as directed Jul, 90 days Active Lamotrigine 25 MG Orally Twice a day 3 tablets 12h 30 days Active Macrobid 100 MG Orally every 12 hrs 1 capsule with food 12h Active tylenol 500 mg Oral 3 times a day 1 tab 8h Active Gabapentin 800 MG Orally 3 times a day 1 tablet 8h 90 days Active Carbamazepine 200 MG Orally 3 times a day 1 tablet 8h 30 days Active Amitriptyline HCl 150 MG Orally Once a day 1 tablet 24h 25 Nov, 2015 90 days Active Baclofen 10 MG Orally Three times a day 1 tablet with food or milk 8h 30 days Active RESULTS No Results PROCEDURES [...]
--- OUTSIDE RECORDS SUMMARY | 2017-08-17 12:28 | XMS REPORT ---
Author Author MASSIMO BOYD [facility] Address [address] [place] [address] Care Team Providers Care Juice Standardizer Name Role Phone MASSIMO BOYD Unavailable PROBLEMS Type Condition ICD9-CM Code VKE96-WR Code Onset Dates Condition Status SNOMED Code Problem Referred by primary care physician Z76.89 Active 4335252549408 Problem Posttraumatic stress disorder F43.10 Active 73282215 Problem Mood disorder F39 Active 78898550 Problem Other acute pulmonary embolism without acute cor pulmonale I26.99 Active 894967963 Problem Severe episode of recurrent major depressive disorder, without psychotic features F33.2 Active 33523359 Problem Trigeminal neuralgia of right side of face G50.0 Active 74470784 Problem Panic attacks F41.0 Active 163623258 Problem Personality disorder in adult F60.9 Active 23260550 Problem Chronic pain disorder G89.4 Active 806780447 ALLERGIES Unknown Allergies SOCIAL HISTORY No smoking Hx information available PLAN OF CARE VITAL SIGNS MEDICATIONS Unknown Medications RESULTS No Results PROCEDURES No Known procedures IMMUNIZATIONS No Known Immunizations
--- OUTSIDE RECORDS SUMMARY | 2017-08-17 12:28 | XMS REPORT ---
Author Author COSMO FUENTES [facility] Address [address] [place] [address] Care Team Providers Care Yarn Salvager Name Role Phone CSOMO FUENTES Unavailable PROBLEMS Type Condition ICD9-CM Code VSA52-FD Code Onset Dates Condition Status SNOMED Code Problem Referred by primary care physician Z76.89 Active 2849277725436 Problem Posttraumatic stress disorder F43.10 Active 47925180 Problem Mood disorder F39 Active 16087270 Problem Other acute pulmonary embolism without acute cor pulmonale I26.99 Active 662752894 Problem Severe episode of recurrent major depressive disorder, without psychotic features F33.2 Active 54390261 Problem Trigeminal neuralgia of right side of face G50.0 Active 33063310 Problem Panic attacks F41.0 Active 797649660 Problem Personality disorder in adult F60.9 Active 57028723 Problem Chronic pain disorder G89.4 Active 894029204 ALLERGIES No Information SOCIAL HISTORY Never Assessed [...]
--- OUTSIDE RECORDS SUMMARY | 2017-08-17 12:28 | XMS REPORT ---
Author Author MASSIMO BOYD [facility] Address [address] [place] [address] Care Team Providers Care Farm Contractor Name Role Phone MASSIMO BOYD Unavailable PROBLEMS Type Condition ICD9-CM Code JEF20-ZX Code Onset Dates Condition Status SNOMED Code Problem Referred by primary care physician Z76.89 Active 7559432512620 Problem Posttraumatic stress disorder F43.10 Active 93846548 Problem Mood disorder F39 Active 10730558 Problem Other acute pulmonary embolism without acute cor pulmonale I26.99 Active 003400512 Problem Severe episode of recurrent major depressive disorder, without psychotic features F33.2 Active 18538058 Problem Trigeminal neuralgia of right side of face G50.0 Active 93821137 Problem Panic attacks F41.0 Active 905617838 Problem Personality disorder in adult F60.9 Active 38795139 Problem Chronic pain disorder G89.4 Active 756369390 ALLERGIES Unknown Allergies SOCIAL HISTORY No smoking Hx information available PLAN OF CARE VITAL SIGNS MEDICATIONS Medication Instructions Dosage Frequency Start Date End Date Duration Status Carbamazepine 200 mg Orally 3 times a day 1 tablet 8h 30 days Active RESULTS No Results PROCEDURES No Known procedures IMMUNIZATIONS No Known Immunizations
--- OUTSIDE RECORDS SUMMARY | 2017-08-17 12:29 | XMS REPORT ---
Author Author MASSIMO BOYD [facility] Address [address] [place] [address] Care Team Providers Care Static Balancer Name Role Phone MASSIMO BOYD Unavailable PROBLEMS Type Condition ICD9-CM Code [id number] Code Onset Dates Condition Status SNOMED Code Problem Referred by primary care physician Z76.89 Active 4935682951283 Problem Posttraumatic stress disorder F43.10 Active 86118796 Problem Mood disorder F39 Active 18152995 Problem Other acute pulmonary embolism without acute cor pulmonale I26.99 Active 130585626 Problem Severe episode of recurrent major depressive disorder, without psychotic features F33.2 Active 26808906 Problem Trigeminal neuralgia of right side of face G50.0 Active 09841083 Problem Panic attacks F41.0 Active 217141273 Problem Personality disorder in adult F60.9 Active 49960669 Problem Chronic pain disorder G89.4 Active 726497023 ALLERGIES No Information SOCIAL HISTORY Never Assessed [...]
--- OUTSIDE RECORDS SUMMARY | 2017-08-17 12:29 | XMS REPORT ---
Author Author EMILIA GALLARDO [facility] Address [address] [place] [address] Care Team Providers Care Consulting Sme Name Role Phone EMILIA GALLARDO Unavailable PROBLEMS Type Condition ICD9-CM Code LLE55-UA Code Onset Dates Condition Status SNOMED Code Problem Referred by primary care physician Z76.89 Active 3799410562576 Problem Posttraumatic stress disorder F43.10 Active 74324001 Problem Mood disorder F39 Active 51721217 Problem Other acute pulmonary embolism without acute cor pulmonale I26.99 Active 377446117 Problem Severe episode of recurrent major depressive disorder, without psychotic features F33.2 Active 34359501 Problem Trigeminal neuralgia of right side of face G50.0 Active 72081631 Problem Panic attacks F41.0 Active 822163887 Problem Personality disorder in adult F60.9 Active 98956376 Problem Chronic pain disorder G89.4 Active 908603167 ALLERGIES No Information ENCOUNTERS Encounter Location Date Diagnosis [facility] [id number] [place] [address] 84133- 9823 Feb, [facility] [id number] [place] [address] 07747- 3290 Jan, [facility] [id number] [place] [address] 55798- 1637 Jan, [facility] [id number] [place] [address] 35000- 2152 Jan, [facility] [id number] [place] [address] 91410- 6663 Jan, [facility] [id number] [place] [address] 55147- 1375 Dec, [facility] [id number] [place] [address] 25064- 0197 Dec, Posttraumatic stress disorder F43.10 [facility] [place] [facility] [address] [facility] [id number] [place] [address]- 0926 Dec, [facility] [address] [facility] [id number], [place] [address] 3916 Dec, [facility] [address] [facility] [id number] [place] [address]- 2722 Dec, [facility] [address] [facility] [id number], [place] [address]- 9725 Dec, [facility] [address] [facility] [id number] [place] [address]- 7659 Dec, [facility] [place] [facility] [address] [facility] [id number] [place] [address]- 8552 Dec, [facility] [address] [id number] [address] 3084 Dec, [facility] [address] [id number], [place] [address] 9400 Dec, [facility] [address] [facility] [id number], [place] [address]- 6897 Dec, Posttraumatic stress disorder F43.10 ; Severe episode of recurrent major depressive disorder, without psychotic features F33.2 and Personality disorder in adult F60.9 [facility] [address] [id number], [place] [address] 0068 Nov, [facility] [address] [id number], [place] [address] 7554 Oct, [facility] [place] [facility] [address] [facility] [id number], [place] [address]- 1856 Oct, [facility] [place] [facility] [address] [facility] [id number], [place] [address]- 9264 Oct, [facility] [place] [facility] [address] [id number], [place] [address] 2103 Oct, Posttraumatic stress disorder F43.10 ; Severe episode of recurrent major depressive disorder, without psychotic features F33.2 and Personality disorder in adult F60.9 [facility] [address] [facility] [id number], [place] [address]- 5979 Oct, [facility] [address] [facility] [id number], [place] [address]- 2249 Oct, [facility] [address] [id number], [place] [address]- 5400 September, [facility] [address] [facility] [id number][place] [address]- 2765 September, [facility] [address] [id number] [address]- 4679 September, [facility] [address] [id number], [place] [address]- 6177 September, [facility] [address], [place] [address]- 6705 September, [facility] [address] [id number], [place] [address]- 1502 September, [facility] [address] [id number], [place] [address]- 3617 September, [facility] [address] [id number], [place] [address]- 9196 September, Posttraumatic stress disorder F43.10 ; Severe episode of recurrent major depressive disorder, without psychotic features F33.2 and Personality disorder in adult F60.9 [facility] [address] [id number], [place] [address]- 7678 September, [facility] [address] [id number], [place] [address]- 3485 September, [facility] [address] [id number], [place] [address]- 8122 September, Other pulmonary embolism without acute cor pulmonale, unspecified chronicity I26.99 [facility] [id number] [place] [address]- 6915 September, [facility] [place] [facility] [address] [id number] [place] [address]- 5820 September, [facility] [place] [facility] [address] [id number] [place] [address]- 1515 September, [facility] [place] [facility] [address] [id number] [place] [address]- 8251 September, [facility] [place] [facility] [address] [id number] [place] [address]- 9046 September, [facility] [place] [facility] [address] [id number] [place] [address]- 3983 Aug, [facility] [place] [facility] [address] [id number] [place] [address]- 4647 Aug, [facility] [place] [facility] [address] [id number] [place] [address]- 3235 Aug, [facility] [place] [facility] [address] [id number] [place] [address]- 2824 Aug, [facility] [place] [facility] [address] [id number] [place] [address]- 0874 Aug, [facility] [place] [facility] [address] [id number] [place] [address]- 1758 Aug, [facility] [place] [facility] [address] [id number] [place] [address]- 3509 Jul, [facility] [place] [facility] [address] [id number] [place] [address]- 2509 Jul, [facility] [place] [facility] [address] [id number] [place] [address]- 2122 Jul, [facility] [address] [id number] [place] [id number] Jul, [facility] [place] [facility] [address] [id number] [place] [address]- 3982 16 Jul, 2016 [facility] [address] [facility] [id number], [place] [address]- 0849 Jul, [facility] [address], [place] [address] Jul, Other specified bacterial agents as the cause of diseases classified elsewhere B96.89 and Local infection of the skin and subcutaneous tissue, unspecified L08.9 [facility] [address]65[address], [place] [address]- 5928 Jul, [facility] [address] [id number], [place] [address]- 8262 Jun, [facility] [id number], [place] [address]- 1841 Jun, [facility] [id number], [place] [address] -0911 Jun, [facility] [id number], [place] [address]- 7484 Jun, [facility] [id number], [place] [address]- 2130 May, [facility] [id number], [place] [address]- 5864 May, [facility] [id number], [place] [address]- 8719 May, Neurodermatitis L28.0 [facility] [id number], [place] [address]- 1403 May, [facility] [address], [place] [address]- 2907 May, [facility] [id number], [place] [address]- 8339 May, [facility] [address] [id number], [place] [address]- 1426 May, [facility] [address], [place] [address]- 5755 May, Screening, lipid Z13.220 and High risk medication use Z79.899 [facility] [id number] [place] [address] 04670- 5556 May, [facility] [id number] [place] [address] 52105- 3397 May, [facility] [id number] [place] [address] 48719- 1217 May, [facility] [id number] [place] [address] 52794- 0316 Apr, [facility] [id number] [place] [address] 60674- 1552 Apr, [facility] [id number] [place] [address] 71390- 8272 Apr, [facility] [id number] [place] [address] 67870- 6198 Apr, [facility] [id number] [place] [address] 20735- 5298 Apr, Posttraumatic stress disorder F43.10 and Trigeminal neuralgia of right side of face G50.0 [facility] [address], [place] [address]- 4770 Apr, [facility] [id number], [place] [address]- 2542 Apr, [facility] [id number], [place] [address]- 5528 Apr, [facility] [id number] [place] [address] 13099- 8647 Mar, Trigeminal neuralgia of right side of face G50.0 [facility] [id number], [place] [address]- 1587 Mar, [facility] [id number], [place] [address]- 5209 Mar, Posttraumatic stress disorder F43.10 and Mood disorder F39 [facility] [id number] [place] [address] 15760- 1046 Mar, [facility] [address] [id number], [place] [address] 2546 Mar, [facility] [id number] [place] [address] 65006- 2926 Mar, [facility] [id number] [place] [address] 35343- 8206 08 Mar, 2016 [facility] [id number] [place] [address] 40496- 3006 Mar, [facility] [id number] [place] [address] 16037- 5166 Mar, Posttraumatic stress disorder F43.10 and Mood disorder F39 [facility] [id number] [place] [address] 96133- 2643 Mar, Chronic pain disorder G89.4 [facility] [id number] [place] [address] 03926 2546 Feb, Chronic pain disorder G89.4 [facility] [address], [place] [address] 2546 Feb, [facility] [id number] [place] [address] 44987- 2546 Feb, [facility] [id number] [place] [address] 30381 2543 Feb, Trigeminal neuralgia of right side of face G50.0 [facility] [id number] [place] [address] 35669 2546 Feb, [facility] [address], [place] [address]- 5686 Feb, Posttraumatic stress disorder F43.10 ; Mood disorder F39 and Panic attacks F41.0 [facility] [address] [facility] [id number], [place] [address] 2546 Feb, [facility] [address] [facility] [id number] [place] [address] [address] Feb, [facility] [address] [id number], [place] [address]- 7636 Feb, [facility] [address] [facility] [id number] [place] [address] 09059 2546 27 Jan, 2016 Trigeminal neuralgia of right side of face G50.0 [facility] [id number] [place] [address], [facility] [id number] [place] [address] 80513 2546 Jan, [facility] [id number] [place] [address] 70756 2547 Jan, Trigeminal neuralgia of right side of face G50.0 [facility] [address] [id number], [place] [address] 2546 Jan, Trigeminal neuralgia of right side of face G50.0 [facility] [address] [id number], [place] [address] 2546 Jan, [facility] [address], [place] [address]- 9924 Dec, [facility] [address] [id number], [place] [address] 2542 Dec, Trigeminal neuralgia of right side of face G50.0 [facility] [address] [facility] [id number] [address] 2546 Dec, [facility] [address] [id number], [place] [address] 2546 Nov, Posttraumatic stress disorder F43.10 ; Mood disorder F39 and Panic attacks F41.0 [facility] [address], [place] [address]- 8632 Nov, Posttraumatic stress disorder F43.10 and Mood disorder F39 [facility] [id number] [place] [address] 87328- 3675 Nov, [facility] [address], [place] [address]- 7036 Nov, [facility] [id number] [place] [address] 41378- 8935 Nov, Confused R41.0 and Mood disorder F39 [facility] [id number] [place] [address] 23503- 4037 Oct, Mood disorder F39 ; Posttraumatic stress disorder F43.10 and Dementia associated with other underlying disease with behavioral disturbance F02.81 [facility] [address], [place] [address]- 8011 Oct, [facility] [id number] [place] [address] 88774- 1019 Oct, [facility] [id number] [place] [address] 73067- 7721 Oct, [facility] [id number] [place] [address] 02577- 5305 Oct, [facility] [address], [place] [address]- 1692 Oct, Posttraumatic stress disorder F43.10 and Mood disorder F39 [facility] [address], [place] [address]- 2542 Oct, [facility] [address], [place] [address]- 5842 Oct, Establishing care with new doctor, encounter for Z71.89 [facility] [address], [place] [address]- 1392 Oct, Mood disorder F39 and Posttraumatic stress disorder F43.10 [facility] [id number] [place] [address] 20247- 9818 07 Oct, 2015 Establishing care with new doctor, encounter for Z71.89 and Dysthymia F34.1 [facility] [id number] [place] [address] 29714- 6398 September, Posttraumatic stress disorder F43.10 and Dementia associated with other underlying disease with behavioral disturbance F02.81 [facility] [address] [address]- 9464 September, Mood disorder F39 ; Posttraumatic stress disorder F43.10 ; Generalized anxiety disorder F41.1 ; Panic attacks F41.0 and Social anxiety disorder F40.10 [facility] [id number] [place] [address] 99454- 7317 September, [facility] [id number] [place] [address] 74934 -4701 September, Acute pain of right shoulder M25.511 [facility] [id number] [place] [address] 18617- 7690 September, [facility] [id number] [place] [address] 90443- 6033 September, Posttraumatic stress disorder F43.10 and Mood disorder F39 [facility] [id number] [place] [address] 12956- 7321 Jul, [facility] [id number] [place] [address] 81091- 9446 Jul, Posttraumatic stress disorder F43.10 and Mood disorder F39 [facility] [id number] [place] [address] 67259- 5532 Jul, Mood disorder F39 and Posttraumatic stress disorder F43.10 [facility] [id number] [place] [address] 43525- 2524 Jul, Posttraumatic stress disorder F43.10 and Mood disorder F39 [facility] [id number] [place] [address] 15468- 7562 Jun, Posttraumatic stress disorder F43.10 and Mood disorder F39 IMMUNIZATIONS No Known Immunizations SOCIAL HISTORY Never Assessed REASON FOR VISIT Med Refills PLAN OF CARE VITAL SIGNS MEDICATIONS Unknown [...]
--- OUTSIDE RECORDS SUMMARY | 2017-08-17 12:29 | XMS REPORT ---
Author Author MASSIMO BOYD [facility] Address [address] [place] [address] Care Team Providers Care Lemon Picker Name Role Phone MASSIMO BOYD Unavailable PROBLEMS Type Condition ICD9-CM Code MGK33-DW Code Onset Dates Condition Status SNOMED Code Problem Referred by primary care physician Z76.89 Active 1494216191046 Problem Posttraumatic stress disorder F43.10 Active 39180388 Problem Mood disorder F39 Active 82591474 Problem Other acute pulmonary embolism without acute cor pulmonale I26.99 Active 574990338 Problem Severe episode of recurrent major depressive disorder, without psychotic features F33.2 Active 96827555 Problem Trigeminal neuralgia of right side of face G50.0 Active 41556434 Problem Panic attacks F41.0 Active 637413516 Problem Personality disorder in adult F60.9 Active 37292195 Problem Chronic pain disorder G89.4 Active 460781122 ALLERGIES No Information ENCOUNTERS Encounter Location Date Diagnosis [facility] [id number] [place] [address] 74315- 6216 Feb, [facility] [id number] [place] [address] 76073- 5868 Jan, [facility] [id number] [place] [address] 87283- 3798 Jan, [facility] [id number] [place] [address] 84212- 8393 Jan, [facility] [id number] [place] [address] 63486- 2595 Jan, [facility] [id number] [place] [address] 66184- 4163 Dec, [facility] [id number] [place] [address] 93816- 3769 Dec, Posttraumatic stress disorder F43.10 [facility] [address], [place] [address] Dec, [facility] [id number] [address] 3714 Dec, [facility] [address], [place] [address] 3063 Dec, [facility] [id number] [place] [address] 57600- 4477 Dec, [facility] [id number] [place] [address] 00322- 3415 Dec, [facility] [id number] [place] [address] 16234- 6280 Dec, [facility] [id number] [place] [address] 40761- 5293 Dec, [facility] [address], [place] [address] 8578 Dec, [facility] [address], [place] [address] 8203 Dec, Posttraumatic stress disorder F43.10 ; Severe episode of recurrent major depressive disorder, without psychotic features F33.2 and Personality disorder in adult F60.9 [facility] [address], [place] [address] 0404 Nov, [facility] [address], [place] [address] 7323 Oct, [facility] [address], [place] [address]- 7974 Oct, [facility] [address], [place] [address]- 7222 Oct, [facility] [address], [place] [address]- 6994 Oct, Posttraumatic stress disorder F43.10 ; Severe episode of recurrent major depressive disorder, without psychotic features F33.2 and Personality disorder in adult F60.9 [facility] [address] [facility] [id number] [place] [address]- 0660 Oct, [facility] [address] [facility] [id number] [place] [address]- 3261 Oct, [facility] [address] [facility] [id number] [place] [address]- 8647 September, [facility] [address] [id number] [place] [address]- 3703 September, [facility] [address] [facility] [id number] [place] [address]- 7169 September, [facility] [address] [facility] [id number] [place] [address]- 5877 September, [facility] [id number] [place] [address] 5022 September, [facility] [id number] [place] [address]- 5198 September, [facility] [id number] [address]- 2578 September, [facility] [id number] [address]- 8245 September, Posttraumatic stress disorder F43.10 ; Severe episode of recurrent major depressive disorder, without psychotic features F33.2 and Personality disorder in adult F60.9 [facility] [address] [facility] [id number], [place] [address] 4702 September, [facility] [id number] [place] [address] 8581 September, [facility] [address] [facility] [id number] [place] [address]- 7388 September, Other pulmonary embolism without acute cor pulmonale, unspecified chronicity I26.99 [facility] [place] [facility] [address] [id number] [place] [address]- 6766 September, [facility] [place] [facility] [address] [id number] [place] [address]- 0974 September, [facility] [place] [facility] [address] [id number] [place] [address] 2546 September, [facility] [place] [facility] [address] [id number] [place] [address]- 8272 September, [facility] [place] [facility] [address] [id number] [place] [address]- 6651 September, [facility] [place] [facility] [address] [id number] [place] [address]- 3093 Aug, [facility] [place] [facility] [address] [id number] [place] [address]- 7515 Aug, [facility] [place] [facility] [address] [id number] [place] [address]- 1504 Aug, [facility] [place] [facility] [address] [id number] [place] [address]- 1582 Aug, [facility] [place] [facility] [address] [id number] [place] [address]- 2610 Aug, [facility] [place] [facility] [address] [id number] [place] [address]- 4860 Aug, [facility] [place] [facility] [address] [id number] [place] [address]- 6583 Jul, [facility] [place] [facility] [address] [id number] [place] [address]- 3825 Jul, [facility] [place] [facility] [address] [id number] [place] [address]- 5564 Jul, [facility] [address] [id number] [place] [address] Jul, [facility] [place] [facility] [address] [id number] [place] [address] Jul, [facility] [id number], [place] [address]- 6754 Jul, [facility] [address], [place] [address] Jul, Other specified bacterial agents as the cause of diseases classified elsewhere B96.89 and Local infection of the skin and subcutaneous tissue, unspecified L08.9 [facility] [address], [place] [address]- 3543 Jul, [facility] [id number], [place] [address]- 1715 Jun, [facility] [address], [place] [address]- 5727 Jun, [facility] [address], [place] [address]2 Jun, [facility] [address], [place] [address]- 4956 Jun, [facility] [id number], [place] [address]- 8862 May, [facility] [address], [place] [address]- 8932 May, [facility] [id number], [place] [address]- 7687 May, Neurodermatitis L28.0 [facility] [id number], [place] [address]- 9523 May, [facility] [id number], [place] [address]- 5846 May, [facility] [address], [place] [address]- 3768 May, [facility] [id number], [place] [address]- 7075 May, [facility] [address], [place] [address]- 1290 May, Screening, lipid Z13.220 and High risk medication use Z79.899 [facility] [address], [place] [address]- 4626 May, [facility] [address], [place] [address]- 5472 May, [facility] [id number] [place] [address] 87416- 0325 May, [facility] [id number] [place] [address] 98945- 0948 Apr, [facility] [id number] [place] [address] 49157- 7409 Apr, [facility] [id number] [place] [address] 45685- 5023 Apr, [facility] [id number] [place] [address] 95030- 9332 Apr, [facility] [id number] [place] [address] 25364- 4738 Apr, Posttraumatic stress disorder F43.10 and Trigeminal neuralgia of right side of face G50.0 [facility] [address], [place] [address]- 0548 Apr, [facility] [address], [place] [address] 2545 Apr, [facility] [address], [place] [address]- 8509 Apr, [facility] [address] [id number], [place] [address]- 8661 Mar, Trigeminal neuralgia of right side of face G50.0 [facility] [address], [place] [address]- 4940 Mar, [facility] [id number], [place] [address]- 2536 Mar, Posttraumatic stress disorder F43.10 and Mood disorder F39 [facility] [address] [facility] [id number], [place] [address] 2546 Mar, [facility] [address] [facility] [id number], [place] [address] 2546 Mar, [facility] [address] [facility] [id number] [place] [address] 12813 2546 Mar, [facility] [address] [facility] [id number] [place] [address] 57219 2546 Mar, [facility] [address] [facility] [id number] [place] [address] 62110 2546 Mar, [facility] [id number], [place] [address]- 4736 Mar, Posttraumatic stress disorder F43.10 and Mood disorder F39 [facility] [address] [facility] [id number], [place] [address] 2546 Mar, Chronic pain disorder G89.4 [facility] [address] [id number] [address] 2546 Feb, Chronic pain disorder G89.4 [facility] [id number], [place] [address] 2546 Feb, [facility] [address], [place] [address] 2546 Feb, [facility] [id number], [place] [address] 2546 Feb, Trigeminal neuralgia of right side of face G50.0 [facility] [id number], [place] [address] 2546 Feb, [facility] [address] [facility] [id number], [place] [address] 2546 Feb, Posttraumatic stress disorder F43.10 ; Mood disorder F39 and Panic attacks F41.0 [facility] [address] [facility] [id number], [place] [address] 2546 13 Feb, 2016 [facility] [address] [facility] [id number] [place] [address] 74065 2546 Feb, [facility] [address] [facility] [id number], [place] [address] 2546 Feb, [facility] [address] [facility] [id number] [place] [address] 38433 2546 27 Jan, 2016 Trigeminal neuralgia of right side of face G50.0 [facility] [id number] [place] [address] 63996 2546 Jan, [facility] [address] [facility] [id number] [place] [address] 28743 2546 Jan, [facility] [id number] [place] [address] 40055 2546 Jan, Trigeminal neuralgia of right side of face G50.0 [facility] [address] [facility] [id number], [place] [address] 2546 Jan, Trigeminal neuralgia of right side of face G50.0 [facility] [address] [facility] [id number], [place] [address] 2546 Jan, [facility] [id number], [place] [address] 2546 Dec, [facility] [address] [facility] [id number], [place] [address] 2546 Dec, Trigeminal neuralgia of right side of face G50.0 [facility] [address] [facility] [id number], [place] [address] 2546 Dec, [facility] [address] [facility] [id number], [place] [address] 2546 Nov, Posttraumatic stress disorder F43.10 ; Mood disorder F39 and Panic attacks F41.0 [facility] [address], [place] [address]- 0781 Nov, Posttraumatic stress disorder F43.10 and Mood disorder F39 [facility] [id number] [place] [address] 14732- 6746 Nov, [facility] [id number] [place] [address] 61704 2546 Nov, [facility] [id number] [place] [address] 66493- 1241 Nov, Confused R41.0 and Mood disorder F39 [facility] [id number] [place] [address] 73800- 6315 Oct, Mood disorder F39 ; Posttraumatic stress disorder F43.10 and Dementia associated with other underlying disease with behavioral disturbance F02.81 [facility] [id number] [place] [address] 07938- 5644 Oct, [facility] [id number] [place] [address] 81401- 3414 Oct, [facility] [id number] [place] [address] 75291- 0101 Oct, [facility] [id number] [place] [address] 32395- 0165 Oct, [facility] [address] [place] [address] 28385- 5313 Oct, Posttraumatic stress disorder F43.10 and Mood disorder F39 [facility] [address], [place] [address]- 1106 Oct, [facility] [id number] [place] [address] 88360- 4037 Oct, Establishing care with new doctor, encounter for Z71.89 [facility] [address], [place] [address]- 2523 Oct, Mood disorder F39 and Posttraumatic stress disorder F43.10 [facility] [id number] [place] [address] 95121- 8489 07 Oct, 2015 Establishing care with new doctor, encounter for Z71.89 and Dysthymia F34.1 [facility] [id number] [place] [address] 98501- 5801 September, Posttraumatic stress disorder F43.10 and Dementia associated with other underlying disease with behavioral disturbance F02.81 [facility] [id number] [place] [address] 70990- 2785 September, Mood disorder F39 ; Posttraumatic stress disorder F43.10 ; Generalized anxiety disorder F41.1 ; Panic attacks F41.0 and Social anxiety disorder F40.10 [facility] [id number] [place] [address] 05680- 5109 September, [facility] [id number] [place] [address] 42494 -4538 September, Acute pain of right shoulder M25.511 [facility] [id number] [place] [address] 69769- 0180 September, [facility] [id number] [place] [address] 31739- 4205 September, Posttraumatic stress disorder F43.10 and Mood disorder F39 [facility] [id number] [place] [address] 56508- 7273 Jul, [facility] [id number] [place] [address] 82749- 6490 Jul, Posttraumatic stress disorder F43.10 and Mood disorder F39 [facility] [id number] [place] [address] 85272- 4282 Jul, Posttraumatic stress disorder F43.10 and Mood disorder F39 [facility] [id number] [place] [address] 79609- 1096 Jul, Posttraumatic stress disorder F43.10 and Mood disorder F39 [facility] [id number] [place] [address] 18450- 0676 Jun, Posttraumatic stress disorder F43.10 and Mood disorder F39 IMMUNIZATIONS No Known Immunizations SOCIAL HISTORY Never Assessed REASON FOR VISIT Requesting Pain and anxiety meds PLAN OF CARE VITAL SIGNS MEDICATIONS Unknown [...]
--- OUTSIDE RECORDS SUMMARY | 2017-08-17 12:30 | XMS REPORT ---
Author Author MASSIMO BOYD [facility] Address [address] [place] [address] Care Team Providers Care Position Description Manager Name Role Phone MASSIMO BOYD Unavailable PROBLEMS Type Condition ICD9-CM Code DIA34-RD Code Onset Dates Condition Status SNOMED Code Problem Referred by primary care physician Z76.89 Active 2284984563488 Problem Posttraumatic stress disorder F43.10 Active 59293301 Problem Mood disorder F39 Active 14733554 Problem Other acute pulmonary embolism without acute cor pulmonale I26.99 Active 635119899 Problem Severe episode of recurrent major depressive disorder, without psychotic features F33.2 Active 64680268 Problem Trigeminal neuralgia of right side of face G50.0 Active 80587841 Problem Panic attacks F41.0 Active 431956634 Problem Personality disorder in adult F60.9 Active 85913322 Problem Chronic pain disorder G89.4 Active 830237431 ALLERGIES No Information SOCIAL HISTORY Never Assessed [...]
--- OUTSIDE RECORDS SUMMARY | 2017-08-17 12:30 | XMS REPORT ---
Author Author MASSIMO BOYD [facility] Address [address] [place] [address] Care Team Providers Care Doll Wigs Hackler Name Role Phone MASSIMO BOYD Unavailable PROBLEMS Type Condition ICD9-CM Code YSS50-DS Code Onset Dates Condition Status SNOMED Code Problem Referred by primary care physician Z76.89 Active 7436740458575 Problem Posttraumatic stress disorder F43.10 Active 65851187 Problem Mood disorder F39 Active 07556577 Problem Other acute pulmonary embolism without acute cor pulmonale I26.99 Active 033179640 Problem Severe episode of recurrent major depressive disorder, without psychotic features F33.2 Active 79952942 Problem Trigeminal neuralgia of right side of face G50.0 Active 19309374 Problem Panic attacks F41.0 Active 681341036 Problem Personality disorder in adult F60.9 Active 34313142 Problem Chronic pain disorder G89.4 Active 336406908 ALLERGIES No Information SOCIAL HISTORY Never Assessed [...]
--- OUTSIDE RECORDS SUMMARY | 2017-08-17 12:30 | XMS REPORT ---
Author Author MASSIMO BOYD Organization [facility] Address [address] [place] [address] Care Team Providers Care Licensed Mortician Name Role Phone MASSIMO BOYD Unavailable PROBLEMS Type Condition ICD9-CM Code OVD84-QB Code Onset Dates Condition Status SNOMED Code Problem Referred by primary care physician Z76.89 Active 6787212532399 Problem Posttraumatic stress disorder F43.10 Active 30345246 Problem Mood disorder F39 Active 83012143 Problem Other acute pulmonary embolism without acute cor pulmonale I26.99 Active 397457517 Problem Severe episode of recurrent major depressive disorder, without psychotic features F33.2 Active 65568046 Problem Trigeminal neuralgia of right side of face G50.0 Active 34070929 Problem Panic attacks F41.0 Active 829579321 Problem Personality disorder in adult F60.9 Active 82313546 Problem Chronic pain disorder G89.4 Active 933553849 ALLERGIES No Information SOCIAL HISTORY Never Assessed [...]
--- OUTSIDE RECORDS SUMMARY | 2017-08-17 12:30 | XMS REPORT ---
Author Author MASSIMO BOYD [facility] Address [address] [place] [address] Care Team Providers Care Metal Tester Name Role Phone MASSIMO BOYD Unavailable PROBLEMS Type Condition ICD9-CM Code PMP87-PX Code Onset Dates Condition Status SNOMED Code Problem Referred by primary care physician Z76.89 Active 0640271108815 Problem Posttraumatic stress disorder F43.10 Active 92415838 Problem Mood disorder F39 Active 07450565 Problem Other acute pulmonary embolism without acute cor pulmonale I26.99 Active 482253181 Problem Severe episode of recurrent major depressive disorder, without psychotic features F33.2 Active 38529192 Problem Trigeminal neuralgia of right side of face G50.0 Active 14373293 Problem Panic attacks F41.0 Active 245878155 Problem Personality disorder in adult F60.9 Active 75025738 Problem Chronic pain disorder G89.4 Active 966907957 ALLERGIES Unknown Allergies SOCIAL HISTORY No smoking Hx information available PLAN OF CARE VITAL SIGNS MEDICATIONS Unknown Medications RESULTS No Results PROCEDURES No Known procedures IMMUNIZATIONS No Known Immunizations
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
--- OUTSIDE RECORDS SUMMARY | 2017-08-17 12:30 | XMS REPORT ---
Author Author EMILIA GALLARDO [facility] Address [address] [place] [address] Care Team Providers Care Buffer Automatic Name Role Phone EMILIA GALLARDO Unavailable PROBLEMS Type Condition ICD9-CM Code GVE00-NW Code Onset Dates Condition Status SNOMED Code Problem Referred by primary care physician Z76.89 Active 7534434910073 Problem Posttraumatic stress disorder F43.10 Active 97217170 Problem Mood disorder F39 Active 24414889 Problem Other acute pulmonary embolism without acute cor pulmonale I26.99 Active 170137190 Problem Severe episode of recurrent major depressive disorder, without psychotic features F33.2 Active 58191014 Problem Trigeminal neuralgia of right side of face G50.0 Active 57057906 Problem Panic attacks F41.0 Active 214468378 Problem Personality disorder in adult F60.9 Active 86154392 Problem Chronic pain disorder G89.4 Active 785335969 ALLERGIES No Information ENCOUNTERS Encounter Location Date Diagnosis [facility] [id number] [place] [address] 02204- 1292 Feb, [facility] [id number] [place] [address] 19976- 7350 Jan, [facility] [id number] [place] [address] 58668- 2191 Jan, [facility] [id number] [place] [address] 00622- 2956 Jan, [facility] [id number] [place] [address] 75050- 3067 Jan, [facility] [id number] [place] [address] 80416- 2865 Dec, [facility] [id number] [place] [address] 51384- 8938 Dec, Posttraumatic stress disorder F43.10 [facility] [place] [facility] [address] [facility] [id number] [place] [address] Dec, [facility] [address] [facility]] [id number], [place] [address] Dec, [facility] [address] [facility]] [id number] [place] [address] 9244 Dec, [facility] [address] [facility]] [id number] [address] Dec, [facility] [address] [facility]] [id number] [place] [address] 7060 Dec, [facility] [place] [facility] [address] [facility]] [id number] [place] [address] 34[address] Dec, [facility] [address] [id number] [address] 86[address] Dec, [facility] [address] [id number] [address] 8587 Dec, [facility] [address] [facility]] [id number] [address] Dec, Posttraumatic stress disorder F43.10 ; Severe episode of recurrent major depressive disorder, without psychotic features F33.2 and Personality disorder in adult F60.9 [facility] [address] [id number] [address] Nov, [facility] [address] [id number] [address]26 Oct, [facility] [place] [facility] [address] [facility]] [id number], [place] [address] 0[address] Oct, [facility] [place] [facility] [address] [facility]] [id number], [place] [address] 7968 Oct, [facility] [place] [facility] [address] [id number] [address] 8431 Oct, Posttraumatic stress disorder F43.10 ; Severe episode of recurrent major depressive disorder, without psychotic features F33.2 and Personality disorder in adult F60.9 [facility] [address] [facility]] [id number], [place] [address] 9573 Oct, [facility] [address] [facility] 3] [id number], [place] [address] 2258 Oct, [facility] [address] [id number] [address] 6683 September, [facility] [address] [facility]] [id number], [place] [address] 4421 September, [facility] [address] [id number], [place] [address] 5141 September, [facility] [id number], [place] [address] 4773 September, [facility] [address], [place] [address] 1179 September, [facility] [address] [id number], [place] [address] 7102 September, [facility] [id number] [address] 3955 September, [facility] [id number] [address] 1601 September, Posttraumatic stress disorder F43.10 ; Severe episode of recurrent major depressive disorder, without psychotic features F33.2 and Personality disorder in adult F60.9 [facility] [address] [id number], [place] [address] 6553 September, [facility] [address] [id number], [place] [address] 7142 September, [facility] [address] [id number] [address]- 3971 September, Other pulmonary embolism without acute cor pulmonale, unspecified chronicity I26.99 [facility] [address] [place] [address] 32[address] September, [facility] [place] [facility] [address] [id number] [place] [address]- 1840 September, [facility] [place] [facility] [address] [id number] [place] [address]- 4457 September, [facility] [place] [facility] [address] [id number] [place] [address]- 6770 September, [facility] [place] [facility] [address] [id number] [place] [address]- 1475 September, [facility] [place] [facility] [address] [id number] [place] [address]- 4063 Aug, [facility] [place] [facility] [address] [id number] [place] [address]- 3245 Aug, [facility] [place] [facility] [address] [id number] [place] [address]- 7340 Aug, [facility] [place] [facility] [address] [id number] [place] [address]- 7677 Aug, [facility] [place] [facility] [address] [id number] [place] [address]- 4402 Aug, [facility] [place] [facility] [address] [id number] [place] [address]- 0983 Aug, [facility] [place] [facility] [address] [id number] [place] [address]- 5940 Jul, [facility] [place] [facility] [address] [id number] [place] [address]- 9656 Jul, [facility] [place] [facility] [address] [id number] [place] [address]- 0722 Jul, [facility] [address] [id number] [place] [id number] Jul, [facility] [place] [facility] [address] [id number] [place] [address]- 2637 16 Jul, 2016 [facility] [address] [facility]] [id number], [place] [address] 1542 Jul, [facility] [address], [place] [address] Jul, Other specified bacterial agents as the cause of diseases classified elsewhere B96.89 and Local infection of the skin and subcutaneous tissue, unspecified L08.9 [facility] [address], [place] [address]- 0333 Jul, [facility] [address] [id number], [place] [address]- 4729 Jun, [facility] [address], [place] [address]- 7730 Jun, [facility] [address], [place] [address] Jun, [facility] [address], [place] [address]- 3574 Jun, [facility] [address], [place] [address]- 5863 May, [facility] [address], [place] [address]- 1182 May, [facility] [address], [place] [address]- 0119 May, Neurodermatitis L28.0 [facility] [address], [place] [address]- 5264 May, [facility] [address], [place] [address]- 3305 May, [facility] [address], [place] [address]- 4096 May, [facility] [id number], [place] [address]- 3163 May, [facility] [address], [place] [address]- 3309 May, Screening, lipid Z13.220 and High risk medication use Z79.899 [facility] [id number] [place] [address] 85276- 7306 May, [facility] [id number] [place] [address] 85191- 2093 May, [facility] [id number] [place] [address] 71101- 7128 May, [facility] [id number] [place] [address] 22060- 4728 Apr, [facility] [id number] [place] [address] 58599- 0595 Apr, [facility] [id number] [place] [address] 68184- 7476 Apr, [facility] [id number] [place] [address] 47663- 7536 Apr, [facility] [id number] [place] [address] 95855- 4345 Apr, Posttraumatic stress disorder F43.10 and Trigeminal neuralgia of right side of face G50.0 [facility] [address], [place] [address]- 4042 Apr, [facility] [address], [place] [address]- 2544 Apr, [facility] [address], [place] [address]- 3957 Apr, [facility] [id number] [place] [address] 21611- 4337 Mar, Trigeminal neuralgia of right side of face G50.0 [facility] [address], [place] [address]- 3788 Mar, [facility] [address] [id number], [place] [address]- 3789 Mar, Posttraumatic stress disorder F43.10 and Mood disorder F39 [facility] [id number] [place] [address] 69476- 8106 Mar, [facility] [id number], [place] [address] 2546 Mar, [facility] [id number] [place] [address] 99180- 4326 Mar, [facility] [id number] [place] [address] 57372- 0246 08 Mar, 2016 [facility] [id number] [place] [address] 58051- 1896 Mar, [facility] [id number] [place] [address] 06356- 0001 Mar, Posttraumatic stress disorder F43.10 and Mood disorder F39 [facility] [id number] [place] [address] 71324- 1307 Mar, Chronic pain disorder G89.4 [facility] [id number] [place] [address] 92460 2546 Feb, Chronic pain disorder G89.4 [facility] [address], [place] [address] 2546 Feb, [facility] [id number] [place] [address] 25416- 2546 Feb, [facility] [id number] [place] [address] 79544 2543 Feb, Trigeminal neuralgia of right side of face G50.0 [facility] [id number] [place] [address] 56483 2546 Feb, [facility] [address], [place] [address]- 1226 Feb, Posttraumatic stress disorder F43.10 ; Mood disorder F39 and Panic attacks F41.0 [facility] [address] [facility]] [id number], [place] [address] 2546 Feb, [facility] [address] [facility] 3] [id number] [place] [address] 52577 2546 Feb, [facility] [id number], [place] [address]- 8106 Feb, [facility] [address] [facility] 3] [id number] [place] [address] 86548 2546 27 Jan, 2016 Trigeminal neuralgia of right side of face G50.0 [facility] [id number] [place] [address] 74116 2546 Jan, [facility] [id number] [place] [address] 81592 2546 Jan, [facility] [id number] [place] [address] 98137 2541 Jan, Trigeminal neuralgia of right side of face G50.0 [facility] [id number], [place] [address] 2546 Jan, Trigeminal neuralgia of right side of face G50.0 [facility] [id number], [place] [address] 2546 Jan, [facility] [address], [place] [address]- 0285 Dec, [facility] [id number], [place] [address] 254 Dec, Trigeminal neuralgia of right side of face G50.0 [facility] [address] [facility]] [id number], [place] [address] 2546 Dec, [facility] [id number], [place] [address] 2546 Nov, Posttraumatic stress disorder F43.10 ; Mood disorder F39 and Panic attacks F41.0 [facility] [address], [place] [address]- 6137 Nov, Posttraumatic stress disorder F43.10 and Mood disorder F39 [facility] [id number] [place] [address] 26331- 8578 Nov, [facility] [address], [place] [address]- 2036 Nov, [facility] [id number] [place] [address] 01979- 4131 Nov, Confused R41.0 and Mood disorder F39 [facility] [id number] [place] [address] 66092- 6544 Oct, Mood disorder F39 ; Posttraumatic stress disorder F43.10 and Dementia associated with other underlying disease with behavioral disturbance F02.81 [facility] [address], [place] [address]- 7898 Oct, [facility] [id number] [place] [address] 57514- 6904 Oct, [facility] [id number] [place] [address] 32412- 3197 Oct, [facility] [id number] [place] [address] 62767- 6337 Oct, [facility] [address], [place] [address]- 9487 Oct, Posttraumatic stress disorder F43.10 and Mood disorder F39 [facility] [address], [place] [address]- 2541 Oct, [facility] [address], [place] [address]- 5062 Oct, Establishing care with new doctor, encounter for Z71.89 [facility] [address], [place] [address]- 4575 Oct, Mood disorder F39 and Posttraumatic stress disorder F43.10 [facility] [id number] [place] [address] 62462- 5704 07 Oct, 2015 Establishing care with new doctor, encounter for Z71.89 and Dysthymia F34.1 [facility] [id number] [place] [address] 48340- 3848 September, Posttraumatic stress disorder F43.10 and Dementia associated with other underlying disease with behavioral disturbance F02.81 [facility] [address] [address]- 8889 September, Mood disorder F39 ; Posttraumatic stress disorder F43.10 ; Generalized anxiety disorder F41.1 ; Panic attacks F41.0 and Social anxiety disorder F40.10 [facility] [id number] [place] [address] 53487- 7023 September, [facility] [id number] [place] [address] 92108 -4131 September, Acute pain of right shoulder M25.511 [facility] [id number] [place] [address] 87607- 3176 September, [facility] [id number] [place] [address] 86346- 1719 September, Posttraumatic stress disorder F43.10 and Mood disorder F39 [facility] [id number] [place] [address] 94909- 6976 Jul, [facility] [id number] [place] [address] 26714- 2953 Jul, Posttraumatic stress disorder F43.10 and Mood disorder F39 [facility] [id number] [place] [address] 49571- 2488 Jul, Mood disorder F39 and Posttraumatic stress disorder F43.10 [facility] [id number] [place] [address] 53377- 4740 Jul, Posttraumatic stress disorder F43.10 and Mood disorder F39 [facility] [id number] [place] [address] 43835- 7851 Jun, Posttraumatic stress disorder F43.10 and Mood disorder F39 IMMUNIZATIONS No Known Immunizations SOCIAL HISTORY Never Assessed REASON FOR VISIT Medication Request PLAN OF CARE VITAL SIGNS MEDICATIONS Unknown [...]
--- OUTSIDE RECORDS SUMMARY | 2017-08-17 12:31 | XMS REPORT | Continuity of Care Document ---
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 panel - 07/13/16 03:20 Serum or plasma sodium measurement (moles/volume) 143 mmol/L 135-145 Serum or plasma potassium measurement (moles/volume) 3.4 mmol/L 3.6-5.0 Serum or plasma chloride measurement (moles/volume) 111 mmol/L 98-107 Carbon dioxide 22 mmol/L 21-32 Serum or plasma anion gap determination (moles/volume) 10 mmol/L 5-14 Serum or plasma urea nitrogen measurement (mass/volume) 6 mg/dL 7-18 Serum or plasma creatinine measurement (mass/volume) 0.69 mg/dL 0.60-1.30 Serum or plasma urea nitrogen/creatinine mass ratio 9 NRG Serum or plasma creatinine measurement with calculation of estimated glomerular filtration rate > NRG Serum or plasma glucose measurement (mass/volume) 86 mg/dL 70-105 Serum or plasma calcium measurement (mass/volume) 8.3 mg/dL 8.5-10.1 Serum or plasma total bilirubin measurement (mass/volume) 0.3 mg/dL 0.1-1.0 Serum or plasma alkaline phosphatase measurement (enzymatic activity/volume) 80 U/L 40-136 Serum or plasma aspartate aminotransferase measurement (enzymatic activity/ volume) 18 U/L 5-34 Serum or plasma alanine aminotransferase measurement (enzymatic activity/volume ) 14 U/L 0-55 Serum or plasma protein measurement (mass/volume) 5.4 g/dL 6.4-8.2 Serum or plasma albumin measurement (mass/volume) 3.1 g/dL 3.2-4.5 Serum or plasma phosphate measurement (mass/volume) - 07/13/16 03:20 Serum or plasma phosphate measurement (mass/volume) 3.2 mg/dL 2.3-4.7 Magnesium - 07/13/16 03:20 Magnesium 1.8 mg/dL 1.8-2.4 Complete blood count (CBC) with automated white blood cell (WBC) differential - 07/14/16 04:05 Blood leukocytes automated count (number/volume) 8.3 10*3/uL 4.3-11.0 Blood erythrocytes automated count (number/volume) 3.74 10*6/uL 4.35-5.85 Venous blood hemoglobin measurement (mass/volume) 11.8 g/dL 11.5-16.0 Blood hematocrit (volume fraction) 37 % 35-52 Automated erythrocyte mean corpuscular volume 100 [foz_us] 80-99 Automated erythrocyte mean corpuscular hemoglobin (mass per erythrocyte) 32 pg 25-34 Automated erythrocyte mean corpuscular hemoglobin concentration measurement ( mass/volume) 32 g/dL 32-36 Automated erythrocyte distribution width ratio 13.7 % 10.0-14.5 Automated blood platelet count (count/volume) 360 10*3/uL 130-400 Automated blood platelet mean volume measurement 9.7 [foz_us] 7.4-10.4 Automated blood neutrophils/100 leukocytes 50 % 42-75 Automated blood lymphocytes/100 leukocytes 37 % 12-44 Blood monocytes/100 leukocytes 9 % 0-12 Automated blood eosinophils/100 leukocytes 3 % 0-10 Automated blood basophils/100 leukocytes 1 % 0-10 Blood neutrophils automated count (number/volume) 4.2 10*3 1.8-7.8 Blood lymphocytes automated count (number/volume) 3.1 10*3 1.0-4.0 Blood monocytes automated count (number/volume) 0.8 10*3 0.0-1.0 Automated eosinophil count 0.3 10*3/uL 0.0-0.3 Automated blood basophil count (count/volume) 0.1 10*3/uL 0.0-0.1 Whole blood basic metabolic panel - 07/14/16 04:05 Serum or plasma sodium measurement (moles/volume) 144 mmol/L 135-145 Serum or plasma potassium measurement (moles/volume) 3.8 mmol/L 3.6-5.0 Serum or plasma chloride measurement (moles/volume) 112 mmol/L 98-107 Carbon dioxide 24 mmol/L 21-32 Serum or plasma anion gap determination (moles/volume) 8 mmol/L 5-14 Serum or plasma urea nitrogen measurement (mass/volume) 7 mg/dL 7-18 Serum or plasma creatinine measurement (mass/volume) 0.75 mg/dL 0.60-1.30 Serum or plasma urea nitrogen/creatinine mass ratio 9 NRG Serum or plasma creatinine measurement with calculation of estimated glomerular filtration rate > NRG Serum or plasma glucose measurement (mass/volume) 97 mg/dL 70-105 Serum or plasma calcium measurement (mass/volume) 8.4 mg/dL 8.5-10.1 Serum or plasma phosphate measurement (mass/volume) - 07/14/16 04:05 Serum or plasma phosphate measurement (mass/volume) 3.2 mg/dL 2.3-4.7 Magnesium - 07/14/16 04:05 Magnesium 1.8 mg/dL 1.8-2.4 Automated blood complete blood count (hemogram) panel - 07/15/16 16:20 Blood leukocytes automated count (number/volume) 7.0 10*3/uL 4.3-11.0 Blood erythrocytes automated count (number/volume) 3.66 10*6/uL 4.35-5.85 Venous blood hemoglobin measurement (mass/volume) 11.3 g/dL 11.5-16.0 Blood hematocrit (volume fraction) 36 % 35-52 Automated erythrocyte mean corpuscular volume 99 [foz_us] 80-99 Automated erythrocyte mean corpuscular hemoglobin (mass per erythrocyte) 31 pg 25-34 Automated erythrocyte mean corpuscular hemoglobin concentration measurement ( mass/volume) 31 g/dL 32-36 Automated erythrocyte distribution width ratio 13.3 % 10.0-14.5 Automated blood platelet count (count/volume) 364 10*3/uL 130-400 Automated blood platelet mean volume measurement 9.3 [foz_us] 7.4-10.4 Comprehensive metabolic panel - 07/15/16 16:20 Serum or plasma sodium measurement (moles/volume) 144 mmol/L 135-145 Serum or plasma potassium measurement (moles/volume) 3.8 mmol/L 3.6-5.0 Serum or plasma chloride measurement (moles/volume) 108 mmol/L 98-107 Carbon dioxide 26 mmol/L 21-32 Serum or plasma anion gap determination (moles/volume) 10 mmol/L 5-14 Serum or plasma urea nitrogen measurement (mass/volume) 7 mg/dL 7-18 Serum or plasma creatinine measurement (mass/volume) 0.72 mg/dL 0.60-1.30 Serum or plasma urea nitrogen/creatinine mass ratio 10 NRG Serum or plasma creatinine measurement with calculation of estimated glomerular filtration rate > NRG Serum or plasma glucose measurement (mass/volume) 82 mg/dL 70-105 Serum or plasma calcium measurement (mass/volume) 8.2 mg/dL 8.5-10.1 Serum or plasma total bilirubin measurement (mass/volume) 0.1 mg/dL 0.1-1.0 Serum or plasma alkaline phosphatase measurement (enzymatic activity/volume) 79 U/L 40-136 Serum or plasma aspartate aminotransferase measurement (enzymatic activity/ volume) 16 U/L 5-34 Serum or plasma alanine aminotransferase measurement (enzymatic activity/volume ) 13 U/L 0-55 Serum or plasma protein measurement (mass/volume) 5.5 g/dL 6.4-8.2 Serum or plasma albumin measurement (mass/volume) 3.1 g/dL 3.2-4.5 Automated blood complete blood count (hemogram) panel - 07/16/16 08:13 Blood leukocytes automated count (number/volume) 6.5 10*3/uL 4.3-11.0 Blood erythrocytes automated count (number/volume) 3.72 10*6/uL 4.35-5.85 Venous blood hemoglobin measurement (mass/volume) 11.6 g/dL 11.5-16.0 Blood hematocrit (volume fraction) 36 % 35-52 Automated erythrocyte mean corpuscular volume 98 [foz_us] 80-99 Automated erythrocyte mean corpuscular hemoglobin (mass per erythrocyte) 31 pg 25-34 Automated erythrocyte mean corpuscular hemoglobin concentration measurement ( mass/volume) 32 g/dL 32-36 Automated erythrocyte distribution width ratio 13.3 % 10.0-14.5 Automated blood platelet count (count/volume) 374 10*3/uL 130-400 Automated blood platelet mean volume measurement 9.2 [foz_us] 7.4-10.4 Comprehensive metabolic panel - 07/16/16 08:13 Serum or plasma sodium measurement (moles/volume) 144 mmol/L 135-145 Serum or plasma potassium measurement (moles/volume) 3.7 mmol/L 3.6-5.0 Serum or plasma chloride measurement (moles/volume) 106 mmol/L 98-107 Carbon dioxide 29 mmol/L 21-32 Serum or plasma anion gap determination (moles/volume) 9 mmol/L 5-14 Serum or plasma urea nitrogen measurement (mass/volume) 6 mg/dL 7-18 Serum or plasma creatinine measurement (mass/volume) 0.72 mg/dL 0.60-1.30 Serum or plasma urea nitrogen/creatinine mass ratio 8 NRG Serum or plasma creatinine measurement with calculation of estimated glomerular filtration rate > NRG Serum or plasma glucose measurement (mass/volume) 89 mg/dL 70-105 Serum or plasma calcium measurement (mass/volume) 8.4 mg/dL 8.5-10.1 Serum or plasma total bilirubin measurement (mass/volume) 0.2 mg/dL 0.1-1.0 Serum or plasma alkaline phosphatase measurement (enzymatic activity/volume) 84 U/L 40-136 Serum or plasma aspartate aminotransferase measurement (enzymatic activity/ volume) 15 U/L 5-34 Serum or plasma alanine aminotransferase measurement (enzymatic activity/volume ) 13 U/L 0-55 Serum or plasma protein measurement (mass/volume) 5.0 g/dL 6.4-8.2 Serum or plasma albumin measurement (mass/volume) 3.1 g/dL 3.2-4.5 Complete blood count (CBC) with automated white blood cell (WBC) differential - 08/30/16 18:34 Blood leukocytes automated count (number/volume) 9.9 10*3/uL 4.3-11.0 Blood erythrocytes automated count (number/volume) 4.29 10*6/uL 4.35-5.85 Venous blood hemoglobin measurement (mass/volume) 13.2 g/dL 11.5-16.0 Blood hematocrit (volume fraction) 40 % 35-52 Automated erythrocyte mean corpuscular volume 94 [foz_us] 80-99 Automated erythrocyte mean corpuscular hemoglobin (mass per erythrocyte) 31 pg 25-34 Automated erythrocyte mean corpuscular hemoglobin concentration measurement ( mass/volume) 33 g/dL 32-36 Automated erythrocyte distribution width ratio 13.0 % 10.0-14.5 Automated blood platelet count (count/volume) 360 10*3/uL 130-400 Automated blood platelet mean volume measurement 8.9 [foz_us] 7.4-10.4 Automated blood neutrophils/100 leukocytes 54 % 42-75 Automated blood lymphocytes/100 leukocytes 34 % 12-44 Blood monocytes/100 leukocytes 10 % 0-12 Automated blood eosinophils/100 leukocytes 1 % 0-10 Automated blood basophils/100 leukocytes 1 % 0-10 Blood neutrophils automated count (number/volume) 5.4 10*3 1.8-7.8 Blood lymphocytes automated count (number/volume) 3.4 10*3 1.0-4.0 Blood monocytes automated count (number/volume) 1.0 10*3 0.0-1.0 Automated eosinophil count 0.1 10*3/uL 0.0-0.3 Automated blood basophil count (count/volume) 0.1 10*3/uL 0.0-0.1 PT panel in platelet poor plasma by coagulation assay - 08/30/16 18:34 Prothrombin time (PT) in platelet poor plasma by coagulation assay 12.8 s 12.2-14.7 INR in platelet poor plasma or blood by coagulation assay 1.0 0.8-1.4 Activated partial thromboplastin time (aPTT) in platelet poor plasma bycoagulation assay - 08/30/16 18:34 Activated partial thromboplastin time (aPTT) in platelet poor plasma bycoagulation assay 30 s 24-35 Urine drug screening test - 08/30/16 18:34 Urine phencyclidine detection by screening method NEGATIVE NEGATIVE Urine benzodiazepines detection by screening method NEGATIVE NEGATIVE Urine cocaine detection NEGATIVE NEGATIVE Urine amphetamines detection by screening method NEGATIVE NEGATIVE Urine methamphetamine detection by screening method NEGATIVE NEGATIVE Urine cannabinoids detection by screening method NEGATIVE NEGATIVE Urine opiates detection by screening method NEGATIVE NEGATIVE Urine barbiturates detection NEGATIVE NEGATIVE Screening urine tricyclic antidepressants detection POSITIVE NEGATIVE Urine methadone detection by screening method NEGATIVE NEGATIVE Urine oxycodone detection NEGATIVE NEGATIVE Urine propoxyphene detection NEGATIVE NEGATIVE Complete urinalysis with reflex to culture - 08/30/16 18:34 Urine color determination YELLOW NRG Urine clarity determination SLIGHTLY CLOUDY NRG Urine pH measurement by test strip 7 5-9 Specific gravity of urine by test strip 1.010 1.016- 1.022 Urine protein assay by test strip, semi-quantitative 1+ NEGATIVE Urine glucose detection by automated test strip NEGATIVE NEGATIVE Erythrocytes detection in urine sediment by light microscopy NEGATIVE NEGATIVE Urine ketones detection by automated test strip NEGATIVE NEGATIVE Urine nitrite detection by test strip NEGATIVE NEGATIVE Urine total bilirubin detection by test strip NEGATIVE NEGATIVE Urine urobilinogen measurement by automated test strip (mass/volume) NORMAL NORMAL Urine leukocyte esterase detection by dipstick 1+ NEGATIVE Automated urine sediment erythrocyte count by microscopy (number/high power field) RARE NRG Automated urine sediment leukocyte count by microscopy (number/high power field ) RARE NRG Bacteria detection in urine sediment by light microscopy MODERATE NRG Squamous epithelial cells detection in urine sediment by light microscopy >50 NRG Crystals detection in urine sediment by light microscopy NONE NRG Casts detection in urine sediment by light microscopy NONE NRG Mucus detection in urine sediment by light microscopy NEGATIVE NRG Complete urinalysis with reflex to culture NO NRG Comprehensive metabolic panel - 08/30/16 18:34 Serum or plasma sodium measurement (moles/volume) 136 mmol/L 135-145 Serum or plasma potassium measurement (moles/volume) 3.7 mmol/L 3.6-5.0 Serum or plasma chloride measurement (moles/volume) 101 mmol/L 98-107 Carbon dioxide 26 mmol/L 21-32 Serum or plasma anion gap determination (moles/volume) 9 mmol/L 5-14 Serum or plasma urea nitrogen measurement (mass/volume) 7 mg/dL 7-18 Serum or plasma creatinine measurement (mass/volume) 0.73 mg/dL 0.60-1.30 Serum or plasma urea nitrogen/creatinine mass ratio 10 NRG Serum or plasma creatinine measurement with calculation of estimated glomerular filtration rate > NRG Serum or plasma glucose measurement (mass/volume) 71 mg/dL 70-105 Serum or plasma calcium measurement (mass/volume) 9.0 mg/dL 8.5-10.1 Serum or plasma total bilirubin measurement (mass/volume) 0.2 mg/dL 0.1-1.0 Serum or plasma alkaline phosphatase measurement (enzymatic activity/volume) 85 U/L 40-136 Serum or plasma aspartate aminotransferase measurement (enzymatic activity/ volume) 16 U/L 5-34 Serum or plasma alanine aminotransferase measurement (enzymatic activity/volume ) 17 U/L 0-55 Serum or plasma protein measurement (mass/volume) 6.8 g/dL 6.4-8.2 Serum or plasma albumin measurement (mass/volume) 4.0 g/dL 3.2-4.5 Serum or plasma creatine kinase measurement (enzymatic activity/volume) - 08/30 18:34 Serum or plasma creatine kinase measurement (enzymatic activity/volume) 42 U/L 29-168 Serum or plasma creatine kinase MB measurement (enzymatic activity/volume) - 18:34 Serum or plasma creatine kinase MB measurement (enzymatic activity/volume) 1.0 ng/mL <6.6 Serum or plasma ethanol measurement (mass/volume) - 08/30/16 18:34 Serum or plasma ethanol measurement (mass/volume) < mg/dL <10 PT panel in platelet poor plasma by coagulation assay - 12/24/16 02:50 Prothrombin time (PT) in platelet poor plasma by coagulation assay 14.5 s 12.2-14.7 INR in platelet poor plasma or blood by coagulation assay 1.1 0.8-1.4 Activated partial thromboplastin time (aPTT) in platelet poor plasma bycoagulation assay - 12/24/16 02:50 Activated partial thromboplastin time (aPTT) in platelet poor plasma bycoagulation assay 33 s 24-35 Complete blood count (CBC) with automated white blood cell (WBC) differential - 12/24/16 02:59 Blood leukocytes automated count (number/volume) 10.9 10*3/uL 4.3-11.0 Blood erythrocytes automated count (number/volume) 3.71 10*6/uL 4.35-5.85 Venous blood hemoglobin measurement (mass/volume) 11.8 g/dL 11.5-16.0 Blood hematocrit (volume fraction) 35 % 35-52 Automated erythrocyte mean corpuscular volume 95 [foz_us] 80-99 Automated erythrocyte mean corpuscular hemoglobin (mass per erythrocyte) 32 pg 25-34 Automated erythrocyte mean corpuscular hemoglobin concentration measurement ( mass/volume) 33 g/dL 32-36 Automated erythrocyte distribution width ratio 14.2 % 10.0-14.5 Automated blood platelet count (count/volume) 390 10*3/uL 130-400 Automated blood platelet mean volume measurement 9.2 [foz_us] 7.4-10.4 Automated blood neutrophils/100 leukocytes 58 % 42-75 Automated blood lymphocytes/100 leukocytes 33 % 12-44 Blood monocytes/100 leukocytes 8 % 0-12 Automated blood eosinophils/100 leukocytes 1 % 0-10 Automated blood basophils/100 leukocytes 0 % 0-10 Blood neutrophils automated count (number/volume) 6.3 10*3 1.8-7.8 Blood lymphocytes automated count (number/volume) 3.6 10*3 1.0-4.0 Blood monocytes automated count (number/volume) 0.9 10*3 0.0-1.0 Automated eosinophil count 0.1 10*3/uL 0.0-0.3 Automated blood basophil count (count/volume) 0.0 10*3/uL 0.0-0.1 Comprehensive metabolic panel - 12/24/16 02:59 Serum or plasma sodium measurement (moles/volume) 141 mmol/L 135-145 Serum or plasma potassium measurement (moles/volume) 3.4 mmol/L 3.6-5.0 Serum or plasma chloride measurement (moles/volume) 109 mmol/L 98-107 Carbon dioxide 18 mmol/L 21-32 Serum or plasma anion gap determination (moles/volume) 14 mmol/L 5-14 Serum or plasma urea nitrogen measurement (mass/volume) 8 mg/dL 7-18 Serum or plasma creatinine measurement (mass/volume) 0.83 mg/dL 0.60-1.30 Serum or plasma urea nitrogen/creatinine mass ratio 10 NRG Serum or plasma creatinine measurement with calculation of estimated glomerular filtration rate > NRG Serum or plasma glucose measurement (mass/volume) 105 mg/dL 70-105 Serum or plasma calcium measurement (mass/volume) 8.7 mg/dL 8.5-10.1 Serum or plasma total bilirubin measurement (mass/volume) 0.2 mg/dL 0.1-1.0 Serum or plasma alkaline phosphatase measurement (enzymatic activity/volume) 75 U/L 40-136 Serum or plasma aspartate aminotransferase measurement (enzymatic activity/ volume) 16 U/L 5-34 Serum or plasma alanine aminotransferase measurement (enzymatic activity/volume ) 16 U/L 0-55 Serum or plasma protein measurement (mass/volume) 6.2 g/dL 6.4-8.2 Serum or plasma albumin measurement (mass/volume) 3.6 g/dL 3.2-4.5 Magnesium - 12/24/16 02:59 Magnesium 2.1 mg/dL 1.8-2.4 Serum or plasma C reactive protein measurement (mass/volume) - 12/24/16 02:59 Serum or plasma C reactive protein measurement (mass/volume) 1.02 mg /dL 0.00-0.50 Serum or plasma acetaminophen measurement (mass/volume) - 12/24/16 02:59 Serum or plasma acetaminophen measurement (mass/volume) < ug/mL 10-30 Serum or plasma ethanol measurement (mass/volume) - 12/24/16 02:59 Serum or plasma ethanol measurement (mass/volume) < mg/dL <10 Complete urinalysis with reflex to culture - 12/24/16 03:04 Urine color determination YELLOW NRG Urine clarity determination CLEAR NRG Urine pH measurement by test strip 6 5-9 Specific gravity of urine by test strip 1.015 1.016- 1.022 Urine protein assay by test strip, semi-quantitative NEGATIVE NEGATIVE Urine glucose detection by automated test strip NEGATIVE NEGATIVE Erythrocytes detection in urine sediment by light microscopy NEGATIVE NEGATIVE Urine ketones detection by automated test strip NEGATIVE NEGATIVE Urine nitrite detection by test strip NEGATIVE NEGATIVE Urine total bilirubin detection by test strip NEGATIVE NEGATIVE Urine urobilinogen measurement by automated test strip (mass/volume) NORMAL NORMAL Urine leukocyte esterase detection by dipstick NEGATIVE NEGATIVE Automated urine sediment erythrocyte count by microscopy (number/high power field) NONE NRG Automated urine sediment leukocyte count by microscopy (number/high power field ) NONE NRG Bacteria detection in urine sediment by light microscopy NEGATIVE NRG Squamous epithelial cells detection in urine sediment by light microscopy RARE NRG Crystals detection in urine sediment by light microscopy NONE NRG Casts detection in urine sediment by light microscopy NONE NRG Mucus detection in urine sediment by light microscopy NEGATIVE NRG Complete urinalysis with reflex to culture NO NRG Urine drug screening test - 12/24/16 03:04 Urine phencyclidine detection by screening method NEGATIVE NEGATIVE Urine benzodiazepines detection by screening method NEGATIVE NEGATIVE Urine cocaine detection NEGATIVE NEGATIVE Urine amphetamines detection by screening method NEGATIVE NEGATIVE Urine methamphetamine detection by screening method NEGATIVE NEGATIVE Urine cannabinoids detection by screening method NEGATIVE NEGATIVE Urine opiates detection by screening method NEGATIVE NEGATIVE Urine barbiturates detection NEGATIVE NEGATIVE Screening urine tricyclic antidepressants detection POSITIVE NEGATIVE Urine methadone detection by screening method NEGATIVE NEGATIVE Urine oxycodone detection NEGATIVE NEGATIVE Urine propoxyphene detection NEGATIVE NEGATIVE Arterial blood gas measurement - 12/24/16 03:20 Blood pCO2 39 mm[Hg] 35-45 Blood pO2 164 mm[Hg] 79-93 Arterial blood bicarbonate measurement (moles/volume) 22 mmol/L 23-27 Arterial blood base excess by calculation -2.6 mmol/L - 2.5-2.5 Arterial blood oxygen saturation measurement 98 % 94-100 * Inhaled oxygen flow rate 2L NRG Arterial blood pH measurement with patient temperature correction 7.36 7.37-7.43 Arterial blood carbon dioxide, total measurement (moles/volume) 23.2 mmol/L 21.0-31.0 Body site R RAD NRG Assessment of wrist artery patency prior to arterial puncture YES- POS NRG Setting of ventilation mode NO NRG Measurement of body temperature 98.1 NRG Methicillin resistant Staphylococcus aureus (MRSA) screening culture - 08:00 Methicillin resistant Staphylococcus aureus (MRSA) screening culture NEG NRG Encounters ACCT No. Visit Date/Time Discharge Status Pt. Type Provider Facility Loc./Unit Complaint [id number] 04/14/2017 14:45:00 04/14/2017 23:59:59 CLS Preadmit OTHER, UNLISTED [facility] RAD SCREENING [id number] 01/31/2017 10:48:00 01/31/2017 23:59:59 CLS Preadmit OTHER, UNLISTED [facility] RAD SCREENING Z12.31 [id number] 12/24/2016 03:40:00 12/24/2016 15:40:00 DIS Inpatient TERESA LYNN DO [facility] ICU UNRESPONSIVE [id number] 08/30/2016 17:27:00 08/30/2016 23:59:59 CLS Emergency LANDON GODOY DO K [facility] ER BACK PAIN, SHINGLES [id number] 07/12/2016 20:41:00 07/18/2016 17:05:00 DIS Inpatient LIZ CROWLEY MD [facility] 4TH BILATERAL PE,AMS, PNEUMONIA [id number] 02/28/2016 14:02:00 02/28/2016 23:59:59 CLS Outpatient MASSIMO BOYD [facility] RAD G50.0 [id number] 02/10/2015 18:38:00 02/10/2015 23:59:59 CLS Emergency HUMAIRA HARVEY [employer] [facility] ER DENTAL PAIN [id number] 01/06/2015 14:23:00 01/06/2015 16:28:00 DIS Emergency HUMAIRA HARVEY [employer] [facility] ER LEFT FOOT/ANKLE/LEG PAIN [id number] 09/30/2014 08:09:00 10/05/2014 12:05:00 DIS Inpatient ANG MELO MD [facility] SURGICAL SWB-Pneumonia [id number] 09/27/2014 14:16:00 09/30/2014 07:58:00 DIS Inpatient ANG MELO MD [facility] SURGICAL PNEUMONIA RUL [id number] 06/09/2014 12:40:00 06/09/2014 19:38:00 DIS Emergency KAMRON SY MD [facility] ER BLOOD IN STOOL [id number] 08/20/2016 10:57:00 Document Registration [id number] 07/02/2014 20:44:00 Document Registration
[2017-08-17] MEDS ORDERED: LORazepam INJ 2 MG/ML (ATIVAN) VIAL IV PRN (13:30)
[2017-08-17] MEDS: RT-ALBUTEROL SULF 2.5 MG/3 ML PRE-MIX VIAL INH SCH ×2 (14:49→18:57)
[2017-08-17] MEDS ORDERED: APIX2.5T PO (15:57)
[2017-08-17] MEDS ORDERED: GABA600T2 PO (15:57)
[2017-08-17] MEDS ORDERED: AMIT75TA2 PO (15:57)
[2017-08-17] MEDS ORDERED: LAMO200T2 PO (15:57)
[2017-08-17] MEDS ORDERED: ONDA4TAB10 PO (16:01)
[2017-08-17] MEDS ORDERED: RT-ALBUTEROL SULF 2.5 MG/3 ML PRE-MIX VIAL INH PRN (17:00)
[2017-08-17] MEDS ORDERED: APIXABAN 2.5 MG (ELIQUIS) TABLET ONE (20:15)
[2017-08-17] MEDS: ZIPRASIDONE 20 MG (GEODON) CAP PO SCH (20:27)
[2017-08-17] MEDS: APIXABAN 2.5 MG (ELIQUIS) TABLET PO SCH (20:27)
[2017-08-17] MEDS ORDERED: NON-FORMULARY MEDICATION 1 EA EA (Lamotrigine 200 MG) PO SCH (21:00)
[2017-08-18] VITALS (16 sets, daily range): BP systolic 94–138; BP diastolic 52–87
[2017-08-18 04:03] LABS: BASOPHILS % (AUTO) 1 % (0-10); EOSINOPHILS # (AUTO) 0.1 10^3/uL (0.0-0.3); EOSINOPHILS % (AUTO) 2 % (0-10); HEMATOCRIT 37 % (35-52); HEMOGLOBIN 12.4 G/DL (11.5-16.0); LYMPHOCYTES # (AUTO) 2.1 X 10^3 (1.0-4.0); LYMPHOCYTES % (AUTO) 25 % (12-44); MEAN CORPUSCULAR HEMOGLOBIN 31 PG (25-34); MEAN CORPUSCULAR HGB CONC 33 G/DL (32-36); MEAN CORPUSCULAR VOLUME 93 FL (80-99); MEAN PLATELET VOLUME 9.1 FL (7.4-10.4); MONOCYTES # (AUTO) 0.9 X 10^3 (0.0-1.0); MONOCYTES % (AUTO) 11 % (0-12); NEUTROPHILS # (AUTO) 5.1 X 10^3 (1.8-7.8); NEUTROPHILS % (AUTO) 62 % (42-75); PLATELET COUNT 363 10^3/uL (130-400); RED BLOOD COUNT 4.02 10^6/uL (4.35-5.85); RED CELL DISTRIBUTION WIDTH 13.5 % (10.0-14.5); WHITE BLOOD COUNT 8.3 10^3/uL (4.3-11.0)
[2017-08-18 04:25] LABS: BUN/CREATININE RATIO 7; CALCIUM 8.6 MG/DL (8.5-10.1); CARBON DIOXIDE 23 MMOL/L (21-32); CHLORIDE 107 MMOL/L (98-107); GFR ESTIMATED > 60; GLUCOSE 85 MG/DL (70-105); MAGNESIUM 1.9 MG/DL (1.8-2.4); PHOSPHORUS 3.1 MG/DL (2.3-4.7); POTASSIUM 3.2 MMOL/L (3.6-5.0); SODIUM 141 MMOL/L (135-145)
[2017-08-18] MEDS: RT-ALBUTEROL SULF 2.5 MG/3 ML PRE-MIX VIAL INH SCH ×3 (07:42→14:13)
[2017-08-18] MEDS ORDERED: MAGNESIUM 1 GM/100 ML IVPB 100 ML IV SCH (07:45)
[2017-08-18] MEDS ORDERED: POTASSIUM CL 10MEQ/50ML IVPB 50 ML IV SCH (07:45)
--- NOTE | 2017-08-18 08:54 | Diagnostic Imaging Report ---
INDICATION: Psychosis, seizures. Study compared exam 12/24/2016. FINDINGS: There is new parenchymal opacities in the suprahilar right upper lobe and the infrahilar left lower lobes. Pneumonia suggested, however, densities warrant radiographic followup. There is air trapping and COPD chronic. Heart size is within normal limits and there is no abnormal dilatation of the vascular structures. There is no pleural fluid or pneumothorax. IMPRESSION: Bilateral right upper and left lower lobe new parenchymal opacity suggest foci of pneumonia, however, radiographic followup recommended. Dictated by: Dictated on workstation # [id number]
[2017-08-18] MEDS: KCL 20 MEQ TAB (K-DUR) PO SCH ×2 (09:04→13:53)
[2017-08-18] MEDS: APIXABAN 2.5 MG (ELIQUIS) TABLET PO SCH (09:05)
[2017-08-18] MEDS ORDERED: ACETAMINOPHEN 500 MG TAB (TYLENOL) PO PRN (09:30)
[2017-08-18] MEDS: ZIPRASIDONE 20 MG (GEODON) CAP PO SCH (09:45)
--- NOTE | 2017-08-18 10:19 | History & Physical-Hospitalist ---
History of Present Illness HPI/Chief Complaint Pt is a 51yoCF with a PMH of schizophrenia, TBI and seizure disorder who presented to the ER via EMS after her neighbors called for a welfare check on her. She does not remember any of this so history from last night is obtained from records. Reportedly EMS found her in her home and described her home as "torn up." She does not remember this but does state she needs help and thinks it may be time for "communal living." Per ER notes she was very uncooperative and appearred to be acutely psychotic and was giving Geodon. She denies hearing voices or seeing things. She knows she has a psychiatric history but is unsure of her diagnosis. She does not follow with a psychiatrist but does see a neurologist for her seizure disorder. She would like to see a neuropsychiatrist though but the [place] has been unable to arrange this for her. She has no other concerns and states she feels well today but knows she needs help. Source: patient Exam Limitations: clinical condition Date Seen 08/18/17 Time Seen by Provider: 10:17 Attending Physician Daya Mireles MD [facility] Referring Physician Date of Admission Aug 17, 2017 at 11:50 am Home Medications & Allergies Home Medications Reviewed patient Home Medication Reconciliation performed by pharmacy medication reconciliations solar panel technician and/or nursing. Patients Allergies have been reviewed. Allergies Allergies Coded Allergies No Known Drug Allergies (Unverified06/09/14) Past Bpfzktk-Nipsgs-Ecswhq Hx Past Med/Social Hx: Reviewed Nursing Past Med/Soc Hx Patient Social History Marrital Status: single Alcohol Use: Denies Use Number of Drinks Today: AA Recreational Drug Use: Yes Drug of Choice: MARIJUANA, opioids Smoking Status: Current Everyday Smoker Type Used: Cigarettes Physical Abuse Screen: No Sexual Abuse: No Recent Foreign Travel: No Contact w/other who traveled: No Recent Hopitalizations: No Recent Infectious Disease Expo: No Immunizations Up To Date Tetanus Booster (TDap): Less than 5yrs Seasonal Allergies Seasonal Allergies: No Past Medical History Surgeries: Section, Orthopedic, Tubal Ligation Currently Using CPAP: No Currently Using BIPAP: No Cardiac: High Cholesterol Neurological: Concussion, Seizure Disorder, Traumatic Brain Injury Reproductive: No Female Reproductive Disorders: Denies Menopausal Musculoskeletal: Chronic Back Pain Psychosocial: Anxiety, PTSD, Bipolar, Personality Disorder, Schizophrenia, Depression History of Blood Disorders: No Family History Alcoholism 19 FATHER Arthritis 19 MOTHER FH: bipolar disorder No Pertinent Family Hx Review of Systems Constitutional: No chills, No fever EENTM: No blurred vision, No double vision, No nose congestion, No throat pain Respiratory: No cough, No dyspnea on exertion, No short of breath Cardiovascular: No chest pain, No edema, No palpitations Gastrointestinal: No abdominal pain, No constipation, No diarrhea; nausea; No vomiting Genitourinary: No dysuria, No frequency Control/STD Prophylaxis: Other (BTL) Musculoskeletal: No joint pain, No muscle pain Skin: No lesions, No rash Psychiatric/Neurological: Emotional Problems; Denies Headache, Denies Numbness ; Seizure (history of seizure disorder); Denies Tingling Physical Exam Physical Exam Vital Signs Vital Signs - First Documented 08/17/17 08/17/17 09:28 13:15 Temp 98.5 Pulse 95 Resp 16 B/P (MAP) 170/104 (126) Pulse Ox 97 O2 Delivery Room Air Capillary Refill : Less Than 3 Seconds General Appearance: No Apparent Distress, WD/WN HEENT: PERRL/EOMI, Moist Mucous Membranes Neck: Non Tender, Supple Respiratory: Lungs Clear, No Respiratory Distress Cardiovascular: Regular Rate, Rhythm, No Murmur Gastrointestinal: Normal Bowel Sounds, Non Tender, Soft Extremity: Normal Capillary Refill, No Calf Tenderness, Other (abrasions on bilteral legs) Neurologic/Psychiatric: Alert, Oriented x3, Normal Mood/Affect Skin: Normal Color, Warm/Dry Results Results/Procedures Labs Laboratory Tests 08/17/17 08:40 08/18/17 03:50 Patient resulted labs reviewed. Imaging: Reviewed Imaging Report Assessment/Plan Admission Diagnosis Acute Psychosis Admission Status: Observation Diagnosis/Problems Diagnosis/Problems (1) Psychosis Status: Acute Assessment & Plan: Mentation much improved today Will consult SW for assisted with DC planing Will look in to assisted placement or [facility] Will hold [facility] this AM and monitor Qualifiers: Psychosis type: schizophrenia Schizophrenia type: undifferentiated schizophrenia Qualified Codes: F20.3 - Undifferentiated schizophrenia (2) Seizure Status: Acute Assessment & Plan: H/o seizure disorder No active seizures while admitted Continue home meds (3) Discharge planning issues Assessment & Plan: Discussed with SW, appreciate help Patient would like to DC home today, daughter aware and agreeable to plan and will help They will look in to placement at [facility] from home Home health ordered to assist with transition- nursing for med set up and social work for [facility] placement Pt DC-ed home Clinical Quality Measures DVT/VTE Risk/Contraindication: Risk Factor Score Per Nursin RFS Level Per Nursing on Admit: 4+=Very High DAYA MIRELES MD Aug 18, 2017 10:19 am
[2017-08-18] MEDS ORDERED: CLON1TAB4 PO (11:21)
[2017-08-18] MEDS ORDERED: ATOR40TA70 PO (11:21)
[2017-08-18] MEDS ORDERED: NON-FORMULARY MEDICATION 1 EA EA (Clonazepam 1 MG) PO PRN (12:15)
[2017-08-18] MEDS ORDERED: ONDANSETRON 4 MG (ZOFRAN) ORAL DISSOLVE TAB PO PRN (12:15)
[2017-08-18] MEDS ORDERED: clonazePAM 1 MG (KlonoPIN) TAB PO PRN (12:15)
[2017-08-18] MEDS ORDERED: NON-FORMULARY MEDICATION 1 EA EA (Ondansetron HCl 4 MG) PO PRN (12:15)
[2017-08-18] MEDS ORDERED: GABAPENTIN 600 MG (NEURONTIN) TAB PO SCH (13:00)
--- NOTE | 2017-08-18 15:27 | D/C HH Face to Face Order ---
D/C Face to Face Orders Instructions for Patient Patient Instructions/FollowUp: Please follow up with your PCP this week to review your medications and make sure you are doing well. Please continue to take your medications as written. Physician to follow Patient: Dr Aldana Discharge Diet for Home: No Restrictions Patient Data-Allergies,Ht & Wt Patient Allergies: Coded Allergies: No Known Drug Allergies (Unverified , 06/09/14) Height (Feet): 5 Height (Inches): 6.00 Weight (Pounds): 186 Weight (Ounces): 0.0 Home Health Need/Face to Face Date of Face to Face: Aug 18, 2017 Clinical Findings: Other-list in note (Unable to drive due to seizure disorder) I have seen Pt [id number]: Yes Discharged To: Home Diagnosis/Conditions: Seizure Disorder Patient is Homebound due to: CognItive deficits (Seizure disorder and unable to drive) Homebound Status Due to the above stated illness, injury or surgical procedure (medical condition or diagnosis) and associated clinical findings, the patient is homebound because of his/her inability to leave home except with aid of a supportive device and/or person AND leaving the home requires a considerable and taxing effort or is medically contraindicated. Pt req the following assistanc: Aid of another person Home Health Nursing Orders Home Health Services Order: Nursing Services (Med set up), Other (Social Work) Home Health Infusion Therapy Line Type: Saline Lock Site Location: Antecubital Certify Stmt I certify that this patient is under my care and that I, a nurse practitioner or a physician; a assistant fitness manager working with me, had a face to face encounter that - meets the physician face to face encounter requirements with this patient as dated. IRA HOPKINS MD Aug 18, 2017 3:27 pm
[2017-08-18] MEDS ORDERED: AMITRIPTYLINE HCL 150 MG PO SCH (21:00)
[2017-08-18] MEDS ORDERED: ATORVASTATIN 20 MG (LIPITOR) TABLET PO SCH (21:00)
[2017-08-18] MEDS ORDERED: AMITRIPTYLINE 150 MG (ELAVIL) TABLET PO SCH (21:00)
[2017-08-18] MEDS ORDERED: ATORVASTATIN 40 MG (LIPITOR) TABLET PO SCH (21:00)
--- NOTE | 2017-08-20 10:58 | Physician Query-Final Dx ---
JESSICA KING 08/20/17 1058: Final Diagnosis Give Final Diagnosis Please give Final Diagnosis IRA HOPKINS MD 08/20/17 1341: Final Diagnosis Give Final Diagnosis Acute Psychosis JESSICA KING Aug 20, 2017 10:58 IRA HOPKINS MD Aug 20, 2017 13:41
== END 2017-08-18 16:30 | disposition home health service (06) | DRG 885 ==
LOC: EDUNIT# 08:35 → ER 08:36 → ICU 11:50
PROVIDERS: ADMIT Family Medicine; ATTEND Family Medicine
DX: F20.3 Undifferentiated schizophrenia (principal); G40.909 Epilepsy, unspecified, not intractable, without status epilepticus; Z87.820 Personal history of traumatic brain injury; F41.9 Anxiety disorder, unspecified; F31.9 Bipolar disorder, unspecified; F60.9 Personality disorder, unspecified; F17.210 Nicotine dependence, cigarettes, uncomplicated
CPT/HCPCS: 36415; 51701; 70450; 71045; 80048; 80053; 80175; 80306; 81000; 83735; 84100; 84484; 85007; 85025; 85027; 87081; 87088; 93005; 94640; 94760; 96372

== ENCOUNTER 2017-09-11 06:50 | Inpatient (IN) | payer MEDICARE ==
[~2017-09-11] VITALS: Ht 167.6 cm; Wt 84.8 kg
[2017-09-11] VITALS (14 sets, daily range): BP systolic 91–126; BP diastolic 52–91
[~2017-09-11 06:50] MED LIST changes: +AMIT75TA2 PO; +APIX2.5T PO; +CLON1TAB3 PO; +GABA600T2 PO; +LAMO200T2 PO; +ONDA4TAB10 PO
--- NOTE | 2017-09-11 07:06 | ED Trauma-Multisystem ---
General Chief Complaint: Trauma-Non Activation Stated Complaint: FALL Source of Information: Patient, EMS History of Present Illness Date Seen by Provider: September 11, 2017 Time Seen by Provider: 07:03 Initial Comments This 52-year-old white female presents after she was found lying outside in the cold rain. The paramedics were called by a neighbor. The patient had apparently fallen while walking her dogs. The patient had evidence of tenderness over the occiput and complaints of neck and low back pain on elementary education teacher arrival. Patient was placed in a cervical collar, closely monitored by the paramedics, an IV was established, and the patient was brought to the emergency department. Review of the patient's most recent evaluation Hospital demonstrates that she is on Eliquis. The patient is able to offer very limited history including her name and where she hurts (had neck and low back). She is unable to offer good history for the events that led to her being found lying on the ground and the cold rain. Paramedics reported that the patient's glucose was normal in the field. Allergies and Home Medications Allergies Coded Allergies: No Known Drug Allergies (Unverified , 06/09/14) Home Medications Amitriptyline HCl 75 Mg Tablet, 150 MG PO HS, (Reported) TAKES 2 (75 MG) TABLETS Apixaban 2.5 Mg Tablet, 2.5 MG PO BID, (Reported) LAST FILLED #60 04-18-17 Atorvastatin Calcium 40 Mg Tablet, 20 MG PO HS, (Reported) TAKES 1/2 (40MG) TABLET Clonazepam 1 Mg Tablet, 1 MG PO DAILY PRN for ANXIETY, (Reported) Gabapentin 600 Mg Tablet, 1,200 MG PO TID, (Reported) TAKES 2 (600 MG) TABLETS Lamotrigine 200 Mg Tablet, 200 MG PO BID, (Reported) Ondansetron HCl 4 Mg Tablet, 4 MG PO TID PRN for NAUSEA/VOMITING-1ST LINE, ( Reported) LAST FILLED #90 03-21-17 Patient Home Medication List Home Medication List Reviewed: Yes Review of Systems Constitutional: see HPI Eyes: No Symptoms Reported Ears: Denies Bloody Discharge Nose: No Bloody Discharge Mouth: No Bloody Discharge Throat: No Symptoms to Report Respiratory: No cough, No short of breath Cardiovascular: Denies Chest Pain Gastrointestinal: No abdominal pain, No vomiting Genitourinary: No no symptoms reported Musculoskeletal: other (patient moves 4 extremities) Skin: other (patient has abrasions and contusions) Psychiatric/Neurological: Other (patient rouses to verbal stimuli.) Past Nehutlm-Iyjclq-Byyovx Hx Past Med/Social Hx: Reviewed Nursing Past Med/Soc Hx Patient Social History Drug of Choice: MARIJUANA, opioids Type Used: Cigarettes Recent Foreign Travel: No Contact w/Someone Who Travel: No Recent Hopitalizations: No Immunizations Up To Date Tetanus Booster (TDap): Less than 5yrs Seasonal Allergies Seasonal Allergies: No Past Medical History Surgeries: Yes (FACE) Section, Orthopedic, Tubal Ligation Respiratory: Yes (BILATERAL P.E. 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 She is able offer her name. She is able to state that her head neck and low back hurt. ) Eyes: Bilateral Eye Normal Inspection, Bilateral Eye PERRL Ears, Nose, Throat: Other (there is tenderness over the occiput) Neck: Other (patient was left in her cervical collar) Cardiovascular: Regular Rate, Rhythm Respiratory: Chest Non Tender, Lungs Clear Gastrointestinal: Normal Bowel Sounds, Non Tender Genital/Rectal: Normal Genital Exam Back: Normal Inspection Extremity: Other (patient is able to move 4 extremities and has gross sensation.) Neurologic/Psychiatric: No Motor/Sensory Deficits (no gross motor or sensory defects are noted on first exam) Skin: Other (patient demonstrates multiple contusions and abrasions. The patient's skin is cool. The patient's rectal temperature is 90.3F.) Bennett Coma Score Best Eye Response ([place]): (3) Open to Voice Best Verbal Response ([place]): (4) Confused Conversation Best Motor Response ([place]): (6) Obeys Commands [place] Total: 15 Progress/Results/Core Measures Results/Orders Lab Results Laboratory Tests Test 09/11/17 07:16 09/11/17 07:19 09/11/17 07:56 Range/Units White Blood Count 10.7 4.3-11.0 10^3/uL Red Blood Count 4.31 L 4.35-5.85 10^6/uL Hemoglobin 13.4 11.5-16.0 G/DL Hematocrit 40 35-52 % Mean Corpuscular Volume 92 80-99 FL Mean Corpuscular Hemoglobin 31 25-34 PG Mean Corpuscular Hemoglobin Concent 34 32-36 G/DL Red Cell Distribution Width 13.2 10.0-14.5 % Platelet Count 314 130-400 10^3/uL Mean Platelet Volume 9.4 7.4-10.4 FL Neutrophils (%) (Auto) 71 42-75 % Lymphocytes (%) (Auto) 19 12-44 % Monocytes (%) (Auto) 9 0-12 % Eosinophils (%) (Auto) 1 0-10 % Basophils (%) (Auto) 0 0-10 % Neutrophils # (Auto) 7.6 1.8-7.8 X 10^3 Lymphocytes # (Auto) 2.0 1.0-4.0 X 10^3 Monocytes # (Auto) 1.0 0.0-1.0 X 10^3 Eosinophils # (Auto) 0.1 0.0-0.3 10^3/uL Basophils # (Auto) 0.0 0.0-0.1 10^3/uL Sodium Level 139 135-145 MMOL/L Potassium Level 4.0 3.6-5.0 MMOL/L Chloride Level 105 98-107 MMOL/L Carbon Dioxide Level 23 21-32 MMOL/L Anion Gap 11 5-14 MMOL/L Blood Urea Nitrogen 7 7-18 MG/DL Creatinine 0.81 0.60-1.30 MG/DL Estimat Glomerular Filtration Rate > 60 BUN/Creatinine Ratio 9 Glucose Level 91 70-105 MG/DL Calcium Level 9.1 8.5-10.1 MG/DL Total Bilirubin 0.7 0.1-1.0 MG/DL Aspartate Amino Transf (AST/SGOT) 45 H 5-34 U/L Alanine Aminotransferase (ALT/SGPT) 22 0-55 U/L Alkaline Phosphatase 85 40-136 U/L Troponin I < 0.30 <0.30 NG/ML Total Protein 7.0 6.4-8.2 GM/DL Albumin 4.2 3.2-4.5 GM/DL Salicylates Level < 5.0 L 5.0-20.0 MG/DL Acetaminophen Level < 10 L 10-30 UG/ML Serum Alcohol < 10 <10 MG/DL Prothrombin Time 15.1 H 12.2-14.7 SEC INR Comment 1.2 0.8-1.4 My Orders Orders - BEVERLY CHRISTINE MD Ct Head/Cervical Spine Wo (09/11/17 06:57) Drug Screen Stat (Urine) (09/11/17 06:57) Ct Lumbar Spine Wo (09/11/17 06:57) Cbc With Automated Diff (09/11/17 06:57) Comprehensive Metabolic Panel (09/11/17 06:57) Protime With Inr (09/11/17 06:57) Ua Culture If Indicated (09/11/17 06:57) Alcohol (09/11/17 06:57) Salicylate (09/11/17 06:57) Acetaminophen (09/11/17 06:57) Ekg Tracing (09/11/17 06:57) Chest 1 View, Ap/Pa Only (09/11/17 06:57) Troponin I (09/11/17 06:57) Naloxone Injection (Narcan Injection) (09/11/17 07:15) Naloxone Injection (Narcan Injection) (09/11/17 07:30) Lactic Acid Analyzer (09/11/17 07:56) Vital Signs/I&O 09/11/17 09/11/17 06:52 06:52 Temp 93.4 93.4 Pulse 77 77 Resp 13 13 B/P (MAP) 119/68 (85) 119/68 (85) Pulse Ox 95 95 O2 Delivery Room Air Progress Progress Note : Time: 07:39 Progress Note The patient had no response to 2 mg of Narcan IV. [address] of the head neck and lumbar spine on my interpretation failed to demonstrate evidence of intracranial hemorrhage or fracture dislocation of the cervical and lumbar spine. The patient remained on the Concepcion hugger. The patient's temp was 95 rectal. She started at 93 rectal when she presented to the emergency department. Patient's level of consciousness appears to be slightly improved. The patient reports she may have taken medications that have caused her change in mentation. [address] of the head and neck and lumbar spine film demonstrated evidence of an intracranial hemorrhage or fracture from the radiologist reading. The chest x-ray failed to demonstrate evidence of an acute infiltrate or pneumohemothorax. Dr. Davies who was apprised of the patient's stable presentation on arrival will see the patient shortly in the emergency department. Departure Communication (Admissions) Time/Spoke to Admitting Phy: 08:13 Dr. Davies. Impression Primary Impression: Altered mental state Qualified Codes: R40.0 - Somnolence Disposition: 09 ADMITTED INPATIENT Condition: Improved Admissions Decision to Admit Reason: Admit from ER (Trauma) Decision to Admit/Date: September 11, 2017 Time/Decision to Admit Time: 08:15 Departure-Patient Inst. Referrals: [facility] (PCP/Family) Primary Care Physician BEVERLY CHRISTINE MD September 11, 2017 07:06
[2017-09-11] MEDS ORDERED: NALOXONE 2 MG/2 ML (NARCAN) SYR ONE (07:15)
[2017-09-11 07:21] LABS: BASOPHILS % (AUTO) 0 % (0-10); EOSINOPHILS # (AUTO) 0.1 10^3/uL (0.0-0.3); EOSINOPHILS % (AUTO) 1 % (0-10); HEMATOCRIT 40 % (35-52); HEMOGLOBIN 13.4 G/DL (11.5-16.0); LYMPHOCYTES % (AUTO) 19 % (12-44); MEAN CORPUSCULAR HEMOGLOBIN 31 PG (25-34); MEAN CORPUSCULAR HGB CONC 34 G/DL (32-36); MEAN CORPUSCULAR VOLUME 92 FL (80-99); MEAN PLATELET VOLUME 9.4 FL (7.4-10.4); MONOCYTES % (AUTO) 9 % (0-12); NEUTROPHILS # (AUTO) 7.6 X 10^3 (1.8-7.8); NEUTROPHILS % (AUTO) 71 % (42-75); PLATELET COUNT 314 10^3/uL (130-400); RED BLOOD COUNT 4.31 10^6/uL (4.35-5.85); RED CELL DISTRIBUTION WIDTH 13.2 % (10.0-14.5); WHITE BLOOD COUNT 10.7 10^3/uL (4.3-11.0)
[2017-09-11] MEDS ORDERED: NALOXONE 2 MG/2 ML (NARCAN) SYR IV ONE (07:30)
[2017-09-11 07:36] LABS: INR 1.2 (0.8-1.4); PROTHROMBIN TIME PATIENT 15.1 SEC (12.2-14.7)
[2017-09-11 07:42] LABS: ALANINE AMINOTRANSFERASE 22 U/L (0-55); ALBUMIN 4.2 GM/DL (3.2-4.5); ALKALINE PHOSPHATASE 85 U/L (40-136); BILIRUBIN,TOTAL 0.7 MG/DL (0.1-1.0); BUN/CREATININE RATIO 9; CALCIUM 9.1 MG/DL (8.5-10.1); CARBON DIOXIDE 23 MMOL/L (21-32); CHLORIDE 105 MMOL/L (98-107); CREATININE SERUM 0.81 MG/DL (0.60-1.30); GFR ESTIMATED > 60; GLUCOSE 91 MG/DL (70-105); SALICYLATE < 5.0 MG/DL (5.0-20.0); SODIUM 139 MMOL/L (135-145)
[2017-09-11 07:45] LABS: ACETAMINOPHEN < 10 UG/ML (10-30)
--- NOTE | 2017-09-11 07:57 | Diagnostic Imaging Report ---
INDICATION: Patient found unresponsive Portable chest 7:21 AM Heart size and pulmonary vascularity are normal. Lungs are clear. There are no effusions or pneumothoraces. IMPRESSION: Negative chest Dictated by: Dictated on workstation # [id number]
[2017-09-11 08:03] LABS: BILIRUBIN,URINE NEGATIVE (NEGATIVE); CLARITY,URINE CLEAR; COLOR,URINE YELLOW; GLUCOSE, URINE (UA) NEGATIVE (NEGATIVE); KETONES,URINE NEGATIVE (NEGATIVE); LEUKOCYTE ESTERASE ,URINE NEGATIVE (NEGATIVE); NITRITE,URINE NEGATIVE (NEGATIVE); PH,URINE 6 (5-9); PROTEIN,URINE NEGATIVE (NEGATIVE); UROBILINOGEN,URINE NORMAL (NORMAL)
--- NOTE | 2017-09-11 08:06 | Diagnostic Imaging Report ---
PROCEDURE: CT head and CT cervical spine without contrast. TECHNIQUE: Multiple contiguous axial images were obtained through the brain and cervical spine without the use of intravenous contrast. Sagittal and coronal reformations through the cervical spine were then performed. INDICATION: Patient found unresponsive CT head: The ventricles are normal in size, shape and position. There are no masses or hemorrhages. There are no extra-axial fluid collections. IMPRESSION: Negative CT head CT cervical spine: Vertebral alignment is normal. There are degenerative disc changes at C5-6. There is also some degenerative changes of the uncovertebral joints. There is no prevertebral soft tissue swelling. There is no fracture or misalignment. IMPRESSION: Degenerative changes in the cervical spine but no acute abnormality seen. Dictated by: Dictated on workstation # [id number]
--- NOTE | 2017-09-11 08:07 | Diagnostic Imaging Report ---
PROCEDURE: CT lumbar spine without contrast. TECHNIQUE: Multiple contiguous axial images were obtained through the lumbar spine without the use of intravenous contrast. Sagittal and coronal reformations were then performed. INDICATION: Patient found unresponsive CT lumbar spine without contrast There is diffuse spondylosis of the lumbar spine with large osteophytes forming anteriorly. Alignment is normal. There are no compression fractures. Posterior elements are intact. Impression: Spondylosis deformans of the lumbar spine. No acute abnormality seen. Dictated by: Dictated on workstation # [id number]
[2017-09-11 08:16] LABS: AMPHETAMINE SCREEN, URINE NEGATIVE (NEGATIVE); BARBITURATE SCREEN URINE NEGATIVE (NEGATIVE); BENZODIAZEPINES SCREEN URINE NEGATIVE (NEGATIVE); CANNABINOID SCREEN, URINE NEGATIVE (NEGATIVE); COCAINE SCREEN URINE NEGATIVE (NEGATIVE); METHADONE STAT NEGATIVE (NEGATIVE); METHAMPHETAMINE SCREEN URINE S NEGATIVE (NEGATIVE); OPIATE SCREEN URINE NEGATIVE (NEGATIVE); OXYCODONE STAT NEGATIVE (NEGATIVE); PROPOXYPHENE STAT NEGATIVE (NEGATIVE); TRICYCLIC ANTIDEPRESSANTS SCRE POSITIVE (NEGATIVE)
[2017-09-11 08:21] LABS: BACTERIA,URINE NEGATIVE /HPF; SQUAMOUS EPITHELIAL CELL,UR RARE /HPF
--- OUTSIDE RECORDS SUMMARY | 2017-09-11 09:02 | XMS REPORT | Clinical Summary ---
Author Author [facility] Organization [facility] Address Unknown Phone Unavailable Care Team Providers Care Account Analyst Name Role Phone RamonMarla hawkins STICK INSERTER PCP Source Comments Some departments are not documenting in the electronic medical record. 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
--- OUTSIDE RECORDS SUMMARY | 2017-09-11 09:02 | XMS REPORT | Continuity of Care Document ---
Author Author [employer] Organization [facility] Address Unknown Phone Unavailable Care Team Providers Care Pattern Illustrator Name Role Phone [employer] Unavailable Unavailable Problems Medications Allergies, Adverse Reactions, Alerts Immunizations Results Vital Signs Encounters Location Location Details Encounter Type Encounter Number Reason For Visit Attending Provider ADM Date DC Date Status Source OUTPATIENT 02/28/2016 02/28/2016 Active [facility] OUTPATIENT [id number] NITA REGALADO 05/21/2016 Active [facility] OUTPATIENT [id number] DIANNA SAYED 06/06/2016 Active [facility] OUTPATIENT [id number] NITA REGALADO 03/04/20172016 Active [facility] OP SURGERY [id number] DIANNA SAYED 04/02/2017 Active [facility] Procedures Plan of Care Social History Assessment and Plan Family History Advance Directives Functional Status
--- OUTSIDE RECORDS SUMMARY | 2017-09-11 09:03 | XMS REPORT ---
Author Author MASSIMO BOYD [facility] Address [address] [place] [address] Care Team Providers Care Senior Project Manager Engineering Name Role Phone MASSIMO BOYD Unavailable PROBLEMS Type Condition ICD9-CM Code [id number] Code Onset Dates Condition Status SNOMED Code Problem Referred by primary care physician Z76.89 Active 3555145301094 Problem Posttraumatic stress disorder F43.10 Active 73748820 Problem Mood disorder F39 Active 89432799 Problem Other acute pulmonary embolism without acute cor pulmonale I26.99 Active 512758287 Problem Severe episode of recurrent major depressive disorder, without psychotic features F33.2 Active 45787257 Problem Trigeminal neuralgia of right side of face G50.0 Active 24882892 Problem Panic attacks F41.0 Active 232567289 Problem Personality disorder in adult F60.9 Active 74064094 Problem Chronic pain disorder G89.4 Active [id number] ALLERGIES No Information ENCOUNTERS Encounter Location Date Diagnosis [facility] [id number] [place] [address] 51747- 8016 Feb, [facility] [id number] [place] [address] 74199- 9693 Jan, [facility] [id number] [place] [address] 40543- 4154 Jan, [facility] [id number] [place] [address] 35380- 1912 Jan, [facility] [id number] [place] [address] 59914- 0149 Jan, [facility] [id number] [place] [address] 35240- 4299 Dec, [facility] [id number] [place] [address] 83897- 8913 Dec, Posttraumatic stress disorder F43.10 [facility] [address] [address] Dec, [facility] [id number] [address] 6135 Dec, [facility] [address] [address] 4992 Dec, [facility] [id number] [place] [address] 59851- 5378 Dec, [facility] [id number] [place] [address] 65955- 0809 Dec, [facility] [id number] [place] [address] 02153- 1827 Dec, [facility] [id number] [place] [address] 98104- 0274 Dec, [facility] [address] [address]- 7117 Dec, [facility] [address] [address] 8638 Dec, Posttraumatic stress disorder F43.10 ; Severe episode of recurrent major depressive disorder, without psychotic features F33.2 and Personality disorder in adult F60.9 [facility] [address] [address] 7828 Nov, [facility] [address] [address] 2076 Oct, [facility] [address] [address] 8315 Oct, [facility] [address] [address]- 4196 Oct, [facility] [address] [address]- 7385 Oct, Posttraumatic stress disorder F43.10 ; Severe episode of recurrent major depressive disorder, without psychotic features F33.2 and Personality disorder in adult F60.9 [facility] [address] [facility] [id number] [place] [address]- 6635 Oct, [facility] [address] [facility] [id number] [place] [address]- 3309 Oct, [facility] [address] [facility] [id number] [place] [address]- 0015 September, [facility] [address] [id number] [place] [address]- 5131 September, [facility] [address] [facility] [id number] [place] [address]- 9808 September, [facility] [address] [facility] [id number] [place] [address]- 3181 September, [facility] [id number] [place] [address]- 4264 September, [facility] [id number] [place] [address]- 5458 September, [facility] [id number] [address]- 9540 September, [facility] [id number] [address]- 9686 September, Posttraumatic stress disorder F43.10 ; Severe episode of recurrent major depressive disorder, without psychotic features F33.2 and Personality disorder in adult F60.9 [facility] [address] [facility] [id number] [address]- 7121 September, [facility] [id number] [place] [address]- 6979 September, [facility] [address] [facility] [id number] [place] [address]- 0155 September, Other pulmonary embolism without acute cor pulmonale, unspecified chronicity I26.99 [facility] [place] [facility] [address] [id number] [place] [address]- 5366 September, [facility] [place] [facility] [address] [id number] [place] [address]- 1196 September, [facility] [place] [facility] [address] [id number] [place] [address] 2546 September, [facility] [place] [facility] [address] [id number] [place] [address]- 1200 September, [facility] [place] [facility] [address] [id number] [place] [address]- 0227 September, [facility] [place] [facility] [address] [id number] [place] [address]- 5869 Aug, [facility] [place] [facility] [address] [id number] [place] [address]- 9404 Aug, [facility] [place] [facility] [address] [id number] [place] [address]- 1942 Aug, [facility] [place] [facility] [address] [id number] [place] [address]- 9979 Aug, [facility] [place] [facility] [address] [id number] [place] [address]- 8710 Aug, [facility] [place] [facility] [address] [id number] [place] [address]- 6014 Aug, [facility] [place] [facility] [address] [id number] [place] [address]- 3897 Jul, [facility] [place] [facility] [address] [id number] [place] [address]- 5020 Jul, [facility] [place] [facility] [address] [id number] [place] [address]- 2987 Jul, [facility] [address] [id number] [place] [id number] Jul, [facility] [place] [facility] [address] [id number] [place] 8499 Jul, [facility] [id number] [address]- 8259 Jul, [facility] [address] [address] Jul, Other specified bacterial agents as the cause of diseases classified elsewhere B96.89 and Local infection of the skin and subcutaneous tissue, unspecified L08.9 [facility] [address] [address]- 6127 Jul, [facility] [id number] [address]- 1872 Jun, [facility] [address] [address]- 0019 Jun, [facility] [address] [address] Jun, [facility] [address] [address]- 7410 Jun, [facility] [id number] [address]- 1849 May, [facility] [address] [address]- 5169 May, [facility] [id number] [address]- 0367 May, Neurodermatitis L28.0 [facility] [id number] [address]- 5338 May, [facility] [id number] [address]- 5105 May, [facility] [address] [address]- 6052 May, [facility] [id number] [address]- 6147 May, [facility] [address] [address]- 4280 May, Screening, lipid Z13.220 and High risk medication use Z79.899 [facility] [address] [address]- 7326 May, [facility] [address] [address]- 7261 May, [facility] [id number] [place] [address] 06767- 4671 May, [facility] [id number] [place] [address] 64565- 7728 Apr, [facility] [id number] [place] [address] 68091- 1995 Apr, [facility] [id number] [place] [address] 66013- 6685 Apr, [facility] [id number] [place] [address] 92373- 9973 Apr, [facility] [id number] [place] [address] 40680- 7500 Apr, Posttraumatic stress disorder F43.10 and Trigeminal neuralgia of right side of face G50.0 [facility] [address] [address]- 5676 Apr, [facility] [address] [address] 2543 Apr, [facility] [address] [address]- 0591 Apr, [facility] [id number] [address]- 0869 Mar, Trigeminal neuralgia of right side of face G50.0 [facility] [address] [address]- 0154 Mar, [facility] [id number] [address]- 3036 Mar, Posttraumatic stress disorder F43.10 and Mood disorder F39 [facility] [address] [facility] [id number] [address] 2546 Mar, [facility] [address] [facility] [id number] [place] [address] 2546 Mar, [facility] [address] [facility] [id number] [place] [address] 24757 2546 Mar, [facility] [address] [facility] [id number] [place] [address] 09668 2546 Mar, [facility] [address] [facility] [id number] [place] [address] 17767 2546 Mar, [facility] [id number] [address]- 8836 Mar, Posttraumatic stress disorder F43.10 and Mood disorder F39 [facility] [address] [facility] [id number] [address] 2546 Mar, Chronic pain disorder G89.4 [facility] [id number] [address] 2546 Feb, Chronic pain disorder G89.4 [facility] [id number] [address] 2546 Feb, [facility] [address] [address] 2546 Feb, [facility] [id number] [address] 2546 Feb, Trigeminal neuralgia of right side of face G50.0 [facility] [id number] [address] 2546 Feb, [facility] [address] [facility] [id number] [address] 2546 Feb, Posttraumatic stress disorder F43.10 ; Mood disorder F39 and Panic attacks F41.0 [facility] [address] [facility] [id number] [address] 2546 13 Feb, 2016 [facility] [address] [facility] [id number] [place] [address] 55719 2546 Feb, [facility] [address] [facility] [id number] [place] [address] 2546 Feb, [facility] [address] [facility] [id number] [place] [address] 32016 2546 27 Jan, 2016 Trigeminal neuralgia of right side of face G50.0 [facility] [address] [id number] [place] [address] 42981 2546 Jan, [facility] [address] [facility] [id number] [place] [address] 63147 2546 Jan, [facility] [id number] [place] [address] 35499 2546 Jan, Trigeminal neuralgia of right side of face G50.0 [facility] [address] [facility] [id number] [address] 2546 Jan, Trigeminal neuralgia of right side of face G50.0 [facility] [address] [facility] [id number] [address] 2546 Jan, [facility] [id number] [address] 2546 Dec, [facility] [address] [facility] [id number] [place] [address] 2546 Dec, Trigeminal neuralgia of right side of face G50.0 [facility] [address] [facility] [id number] [place] [address] 2546 Dec, [facility] [address] [facility] [id number] [place] [address] 2546 Nov, Posttraumatic stress disorder F43.10 ; Mood disorder F39 and Panic attacks F41.0 [facility] [address] [address]- 0677 Nov, Posttraumatic stress disorder F43.10 and Mood disorder F39 [facility] [id number] [place] [address] 76303- 7386 Nov, [facility] [id number] [place] [address] 26392 2546 Nov, [facility] [id number] [place] [address] 03499- 8673 Nov, Confused R41.0 and Mood disorder F39 [facility] [id number] [place] [address] 68556- 2780 Oct, Mood disorder F39 ; Posttraumatic stress disorder F43.10 and Dementia associated with other underlying disease with behavioral disturbance F02.81 [facility] [id number] [place] [address] 67897- 0826 Oct, [facility] [id number] [place] [address] 41967- 3593 Oct, [facility] [id number] [place] [address] 37547- 0144 Oct, [facility] [id number] [place] [address] 18649- 8359 Oct, [facility] [id number] [place] [address] 68253- 0017 Oct, Posttraumatic stress disorder F43.10 and Mood disorder F39 [facility] [address] [address]- 6924 Oct, [facility] [id number] [place] [address] 77936- 5184 Oct, Establishing care with new doctor, encounter for Z71.89 [facility] [address] [address]- 6356 Oct, Mood disorder F39 and Posttraumatic stress disorder F43.10 [facility] [id number] [place] [address] 85949- 4805 07 Oct, 2015 Establishing care with new doctor, encounter for Z71.89 and Dysthymia F34.1 [facility] [id number] [place] [address] 78005- 6073 September, Posttraumatic stress disorder F43.10 and Dementia associated with other underlying disease with behavioral disturbance F02.81 [place] [id number] [place] [address] 28207- 2570 September, Mood disorder F39 ; Posttraumatic stress disorder F43.10 ; Generalized anxiety disorder F41.1 ; Panic attacks F41.0 and Social anxiety disorder F40.10 [place] [id number] [place] [address] 76490- 4411 September, [facility] [id number] [place] [address] 72830 -0633 September, Acute pain of right shoulder M25.511 [facility] [id number] [place] [address] 87021- 7674 September, [facility] [id number] [place] [address] 29062- 7488 September, Posttraumatic stress disorder F43.10 and Mood disorder F39 [place] [id number] [place] [address] 97414- 8319 Jul, [facility] [id number] [place] [address] 99883- 8089 Jul, Posttraumatic stress disorder F43.10 and Mood disorder F39 [facility] [id number] [place] [address] 99806- 7724 Jul, Mood disorder F39 and Posttraumatic stress disorder F43.10 [place] [id number] [place] [address] 63854- 8193 Jul, Posttraumatic stress disorder F43.10 and Mood disorder F39 [place] [id number] [place] [address] 90814- 2456 Jun, Posttraumatic stress disorder F43.10 and Mood disorder F39 IMMUNIZATIONS No Known Immunizations SOCIAL HISTORY Never Assessed REASON FOR VISIT Requests return call PLAN OF CARE VITAL SIGNS MEDICATIONS Unknown [...]
--- OUTSIDE RECORDS SUMMARY | 2017-09-11 09:04 | XMS REPORT ---
Author Author EMILIA GALLARDO [facility] Address [address] [place] [address] Care Team Providers Care [employer] Manager Name Role Phone EMILIA GALLARDO Unavailable PROBLEMS Type Condition ICD9-CM Code [id number] Code Onset Dates Condition Status SNOMED Code Problem Referred by primary care physician Z76.89 Active 1013792483823 Problem Posttraumatic stress disorder F43.10 Active 73088627 Problem Mood disorder F39 Active 45808764 Problem Other acute pulmonary embolism without acute cor pulmonale I26.99 Active 457724167 Problem Severe episode of recurrent major depressive disorder, without psychotic features F33.2 Active 42680598 Problem Trigeminal neuralgia of right side of face G50.0 Active 27823629 Problem Panic attacks F41.0 Active 704244530 Problem Personality disorder in adult F60.9 Active 01644952 Problem Chronic pain disorder G89.4 Active 339661527 ALLERGIES No Information ENCOUNTERS Encounter Location Date Diagnosis [facility] [id number] [place] [address] 85093- 0895 Feb, [facility] [id number] [place] [address] 69475- 3187 Jan, [facility] [id number] [place] [address] 98094- 8445 Jan, [facility] [id number] [place] [address] 28016- 0473 Jan, [facility] [id number] [place] [address] 42976- 6426 Jan, [facility] [id number] [place] [address] 87370- 1277 Dec, [facility] [id number] [place] [address] 58228- 7171 Dec, Posttraumatic stress disorder F43.10 [facility] [place] [facility] [address] [facility] [id number] [place] [address] 8929 Dec, [facility] [address] [facility] [id number] [address] 2356 Dec, [facility] [address] [facility] [id number] [place] [address] 1490 Dec, [facility] [address] [facility] [id number] [address] 58[address] Dec, [facility] [address] [facility] [id number] [place] [address]- 2384 Dec, [facility] [place] [facility] [address] [facility] [id number] [place] [address]- 6917 Dec, [facility] [address] [id number] [address] 1727 Dec, [facility] [address] [id number] [address] 9315 Dec, [facility] [address] [facility] [id number] [address] 6055 Dec, Posttraumatic stress disorder F43.10 ; Severe episode of recurrent major depressive disorder, without psychotic features F33.2 and Personality disorder in adult F60.9 [facility] [address] [id number] [address] 2900 Nov, [facility] [address] [id number] [address] 6672 Oct, [facility] [place] [facility] [address] [facility] [id number] [address] 2701 Oct, [facility] [place] [facility] [address] [facility] [id number][place] [address]- 4465 Oct, [facility] [place] [facility] [address] [id number] [address] 7579 Oct, Posttraumatic stress disorder F43.10 ; Severe episode of recurrent major depressive disorder, without psychotic features F33.2 and Personality disorder in adult F60.9 [facility] [address] [facility] [id number] [address] 0050 Oct, [facility] [address] [facility] [id number] [address]- 2089 Oct, [facility] [address] [id number] [address] 2574 September, [facility] [address] [facility] [id number] [address]- 6353 September, [facility] [address] [id number] [address]- 1764 September, [facility] [address] [id number] [address]- 2666 September, [facility] [address] [address]- 6476 September, [facility] [address] [id number] [address]- 3448 September, [facility] [address] [id number] [address]- 5789 September, [facility] [address] [id number] [address]- 4635 September, Posttraumatic stress disorder F43.10 ; Severe episode of recurrent major depressive disorder, without psychotic features F33.2 and Personality disorder in adult F60.9 [facility] [address] [id number] [address] 5039 September, [facility] [address] [id number] [address]- 7251 September, [facility] [address] [id number] [address]- 6943 September, Other pulmonary embolism without acute cor pulmonale, unspecified chronicity I26.99 [facility] [id number] [place] [address]- 4847 September, [facility] [place] [facility] [address] [id number] [place] [address]- 9004 September, [facility] [place] [facility] [address] [id number] [place] [address]- 6341 September, [facility] [place] [facility] [address] [id number] [place] [address]- 9798 September, [facility] [place] [facility] [address] [id number] [place] [address]- 8361 September, [facility] [place] [facility] [address] [id number] [place] [address]- 4399 Aug, [facility] [place] [facility] [address] [id number] [place] [address]- 5487 Aug, [facility] [place] [facility] [address] [id number] [place] [address]- 4067 Aug, [facility] [place] [facility] [address] [id number] [place] [address]- 8383 Aug, [facility] [place] [facility] [address] [id number] [place] [address]- 7846 Aug, [facility] [place] [facility] [address] [id number] [place] [address]- 4996 Aug, [facility] [place] [facility] [address] [id number] [place] [address]- 2996 Jul, [facility] [place] [facility] [address] [id number] [place] [address]- 5569 Jul, [facility] [place] [facility] [address] [id number] [place] [address]- 5964 Jul, [facility] [address] [id number] [place] [id number] Jul, [facility] [place] [facility] [address] [id number] [place] [address]- 5299 16 Jul, 2016 [facility] [address] [facility] [id number] [address] Jul, [facility] [address] [address] Jul, Other specified bacterial agents as the cause of diseases classified elsewhere B96.89 and Local infection of the skin and subcutaneous tissue, unspecified L08.9 [facility] [address] [address]- 4995 Jul, [facility] [address] [id number] [address]- 5340 Jun, [facility] [address] [address]- 9099 Jun, [facility] [address] [address] Jun, [facility] [address] [address]- 0013 Jun, [facility] [address], [place] [address]- 9464 May, [facility] [address], [place] [address]- 5197 May, [facility] [address], [place] [address]- 8404 May, Neurodermatitis L28.0 [facility] [address], [place] [address]- 3876 May, [facility] [address] [address]- 1660 May, [facility] [address] [address]- 3273 May, [facility] [address] [id number] [address]- 2440 May, [facility] [address], [place] [address]- 1109 May, Screening, lipid Z13.220 and High risk medication use Z79.899 [facility] [id number] [place] [address] 86873- 7396 May, [facility] [id number] [place] [address] 07964- 8047 May, [facility] [id number] [place] [address] 04144- 0834 May, [facility] [id number] [place] [address] 21600- 7613 Apr, [facility] [id number] [place] [address] 22076- 6598 Apr, [facility] [id number] [place] [address] 66211- 2319 Apr, [facility] [id number] [place] [address] 02787- 5903 Apr, [facility] [id number] [place] [address] 99448- 8189 Apr, Posttraumatic stress disorder F43.10 and Trigeminal neuralgia of right side of face G50.0 [facility] [address] [address]- 8954 Apr, [facility] [address], [place] [address]- 2541 Apr, [facility] [address] [address]- 1976 Apr, [facility] [id number] [place] [address] 07213- 2865 Mar, Trigeminal neuralgia of right side of face G50.0 [facility] [address] [address]- 5352 Mar, [facility] [id number] [address]- 7880 Mar, Posttraumatic stress disorder F43.10 and Mood disorder F39 [facility] [id number] [place] [address] 98462- 2206 Mar, [facility] [address] [id number] [address] 2546 Mar, [facility] [id number] [place] [address] 00988- 6036 Mar, [facility] [id number] [place] [address] 74494- 9626 08 Mar, 2016 [facility] [id number] [place] [address] 35960- 0486 Mar, [facility] [id number] [place] [address] 85411- 0432 Mar, Posttraumatic stress disorder F43.10 and Mood disorder F39 [facility] [id number] [place] [address] 00188- 0296 Mar, Chronic pain disorder G89.4 [facility] [id number] [place] [address] 38028 2546 Feb, Chronic pain disorder G89.4 [facility] [address], [place] [address] 2546 Feb, [facility] [id number] [place] [address] 01659- 2546 Feb, [facility] [id number] [place] [address] 66816 2549 Feb, Trigeminal neuralgia of right side of face G50.0 [facility] [id number] [place] [address] 22708 2546 Feb, [facility] [address] [address]- 5916 Feb, Posttraumatic stress disorder F43.10 ; Mood disorder F39 and Panic attacks F41.0 [facility] [address] [facility] [id number] [address] 2546 Feb, [facility] [address] [facility] [id number] [place] [address] 63492 2546 Feb, [facility] [address] [id number] [address]- 5056 Feb, [facility] [address] [facility] [id number] [place] [address] 81466 2546 27 Jan, 2016 Trigeminal neuralgia of right side of face G50.0 [facility] [id number] [place] [address] 31734 2546 Jan, [facility] [id number] [place] [address] 44592 2546 Jan, [facility] [id number] [place] [address] 46678 2547 Jan, Trigeminal neuralgia of right side of face G50.0 [facility] [id number] [address] 2546 Jan, Trigeminal neuralgia of right side of face G50.0 [facility] [id number] [address] 2546 Jan, [facility] [address], [place] [address]- 2010 Dec, [facility] [id number] [address] 2547 Dec, Trigeminal neuralgia of right side of face G50.0 [facility] [address] [facility] [id number] [address] 2546 Dec, [facility] [address] [id number] [address] 2546 Nov, Posttraumatic stress disorder F43.10 ; Mood disorder F39 and Panic attacks F41.0 [facility] [address] [address]- 1591 Nov, Posttraumatic stress disorder F43.10 and Mood disorder F39 [facility] [id number] [place] [address] 40413- 8771 Nov, [facility] [address], [place] [address]- 4986 Nov, [facility] [id number] [place] [address] 04470- 5929 Nov, Confused R41.0 and Mood disorder F39 [facility] [id number] [place] [address] 89982- 7701 Oct, Mood disorder F39 ; Posttraumatic stress disorder F43.10 and Dementia associated with other underlying disease with behavioral disturbance F02.81 [facility] [address], [place] [address]- 5380 Oct, [facility] [id number] [place] [address] 19290- 9835 Oct, [facility] [id number] [place] [address] 74084- 6123 Oct, [facility] [id number] [place] [address] 06094- 8504 Oct, [facility] [address] [address]- 3477 Oct, Posttraumatic stress disorder F43.10 and Mood disorder F39 [facility] [address], [place] [address]- 2540 Oct, [facility] [address], [place] [address]- 5715 Oct, Establishing care with new doctor, encounter for Z71.89 [facility] [address], [place] [address]- 2350 Oct, Mood disorder F39 and Posttraumatic stress disorder F43.10 [facility] [id number] [place] [address] 97576- 3167 07 Oct, 2015 Establishing care with new doctor, encounter for Z71.89 and Dysthymia F34.1 [facility] [id number] [place] [address] 11381- 2813 September, Posttraumatic stress disorder F43.10 and Dementia associated with other underlying disease with behavioral disturbance F02.81 [facility] [address] [address]57- 9843 September, Mood disorder F39 ; Posttraumatic stress disorder F43.10 ; Generalized anxiety disorder F41.1 ; Panic attacks F41.0 and Social anxiety disorder F40.10 [facility] [id number] [place] [address] 11133- 9303 September, [facility] [id number] [place] [address] 92277 -8981 September, Acute pain of right shoulder M25.511 [facility] [id number] [place] [address] 07900- 4525 September, [facility] [id number] [place] [address] 93961- 8075 September, Posttraumatic stress disorder F43.10 and Mood disorder F39 [facility] [id number] [place] [address] 24437- 4606 Jul, [facility] [id number] [place] [address] 67089- 3107 Jul, Posttraumatic stress disorder F43.10 and Mood disorder F39 [facility] [id number] [place] [address] 65006- 5290 Jul, Mood disorder F39 and Posttraumatic stress disorder F43.10 [facility] [id number] [place] [address] 93802- 9330 Jul, Posttraumatic stress disorder F43.10 and Mood disorder F39 [facility] [id number] [place] [address] 06817- 5341 Jun, Posttraumatic stress disorder F43.10 and Mood disorder F39 IMMUNIZATIONS No Known Immunizations SOCIAL HISTORY Never Assessed REASON FOR VISIT Testing inquiring PLAN OF CARE VITAL SIGNS MEDICATIONS Unknown [...]
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
--- OUTSIDE RECORDS SUMMARY | 2017-09-11 09:07 | XMS REPORT ---
Author Author MASSIMO BOYD [facility] Address [address] [place] [address] Care Team Providers Care Secondary Set Up Man Name Role Phone MASSIMO BOYD Unavailable PROBLEMS Type Condition ICD9-CM Code XPB25-IW Code Onset Dates Condition Status SNOMED Code Problem Referred by primary care physician Z76.89 Active 5365706944431 Problem Posttraumatic stress disorder F43.10 Active 92725728 Problem Mood disorder F39 Active 78923874 Problem Other acute pulmonary embolism without acute cor pulmonale I26.99 Active 571700570 Problem Severe episode of recurrent major depressive disorder, without psychotic features F33.2 Active 18357501 Problem Trigeminal neuralgia of right side of face G50.0 Active 50014230 Problem Panic attacks F41.0 Active 693324460 Problem Personality disorder in adult F60.9 Active 27978670 Problem Chronic pain disorder G89.4 Active 912817504 ALLERGIES No Information ENCOUNTERS Encounter Location Date Diagnosis [facility] [id number] [place] [address] 29693- 2250 Feb, [facility] [id number] [place] [address] 77585- 4882 Jan, [facility] [id number] [place] [address] 93617- 6861 Jan, [facility] [id number] [place] [address] 28059- 2101 Jan, [facility] [id number] [place] [address] 05849- 0250 Jan, [facility] [id number] [place] [address] 09911- 2126 Dec, [facility] [id number] [place] [address] 96384- 2571 Dec, Posttraumatic stress disorder F43.10 [facility] [address] [address] Dec, [facility] [id number], [place] [address] 5158 Dec, [facility] [address], [place] [address] 2585 Dec, [facility] [id number] [place] [address] 33802- 8538 Dec, [facility] [id number] [place] [address] 58251- 3916 Dec, [facility] [id number] [place] [address] 85158- 1843 Dec, [facility] [id number] [place] [address] 61452- 7535 Dec, [facility] [address], [place] [address]- 9500 Dec, [facility] [address], [place] [address]- 5774 Dec, Posttraumatic stress disorder F43.10 ; Severe episode of recurrent major depressive disorder, without psychotic features F33.2 and Personality disorder in adult F60.9 [facility] [address], [place] [address]- 7256 Nov, [facility] [address], [place] [address]- 8540 Oct, [facility] [address], [place] [address] 3247 Oct, [facility] [address], [place] [address]- 3331 Oct, [facility] [address], [place] [address]- 0519 Oct, Posttraumatic stress disorder F43.10 ; Severe episode of recurrent major depressive disorder, without psychotic features F33.2 and Personality disorder in adult F60.9 [facility] [address] [facility] [id number] [place] [address]- 9702 Oct, [facility] [address] [facility] [id number] [place] [address]- 0120 Oct, [facility] [address] [facility] [id number] [place] [address]- 9465 September, [facility] [address] [id number] [place] [address]- 4933 September, [facility] [address] [facility] [id number] [place] [address]- 7914 September, [facility] [address] [facility] [id number] [place] [address]- 2058 September, [facility] [id number] [address]- 1274 September, [facility] [id number] [place] [address]- 1792 September, [facility] [id number], [place] [address]- 9803 September, [facility] [id number], [place] [address]- 7329 September, Posttraumatic stress disorder F43.10 ; Severe episode of recurrent major depressive disorder, without psychotic features F33.2 and Personality disorder in adult F60.9 [facility] [address] [facility] [id number] [address]- 5988 September, [facility] [id number] [address]- 5070 September, [facility] [address] [facility] [id number] [place] [address]- 7608 September, Other pulmonary embolism without acute cor pulmonale, unspecified chronicity I26.99 [facility] [place] [facility] [address] [id number] [place] [address]- 3936 September, [facility] [place] [facility] [address] [id number] [place] [address]- 4570 September, [facility] [place] [facility] [address] [id number] [place] [address] 2546 September, [facility] [place] [facility] [address] [id number] [place] [address]- 1135 September, [facility] [place] [facility] [address] [id number] [place] [address]- 6195 September, [facility] [place] [facility] [address] [id number] [place] [address]- 6495 Aug, [facility] [place] [facility] [address] [id number] [place] [address]- 2045 Aug, [facility] [place] [facility] [address] [id number] [place] [address]- 3498 Aug, [facility] [place] [facility] [address] [id number] [place] [address]- 6812 Aug, [facility] [place] [facility] [address] [id number] [place] [address]- 5692 Aug, [facility] [place] [facility] [address] [id number] [place] [address]- 8161 Aug, [facility] [place] [facility] [address] [id number] [place] [address]- 3933 Jul, [facility] [place] [facility] [address] [id number] [place] [address]- 8846 Jul, [facility] [place] [facility] [address] [id number] [place] [address]- 4924 Jul, [facility] [address] [id number] [place] [id number] Jul, [facility] [place] [facility] [address] [id number] [place] [address]3 Jul, [facility] [address] [id number], [place] [address]- 9474 Jul, [facility] [address], [place] [address] Jul, Other specified bacterial agents as the cause of diseases classified elsewhere B96.89 and Local infection of the skin and subcutaneous tissue, unspecified L08.9 [facility] [address], [place] [address]- 7943 Jul, [facility] [address] [id number], [place] [address]- 7302 Jun, [facility] [address], [place] [address]- 4780 Jun, [facility] [address], [place] [address]6549 Jun, [facility] [address], [place] [address]- 2903 Jun, [facility] [id number], [place] [address]- 5101 May, [facility] [address], [place] [address]- 4539 May, [facility] [address] [id number], [place] [address]- 4190 May, Neurodermatitis L28.0 [facility] [address] [id number], [place] [address]- 2569 May, [facility] [address] [id number], [place] [address]- 4750 May, [facility] [address], [place] [address]- 3670 May, [facility] [address] [id number], [place] [address]- 6996 May, [facility] [address], [place] [address]- 0920 May, Screening, lipid Z13.220 and High risk medication use Z79.899 [facility] [address], [place] [address]- 5166 May, [facility] [address], [place] [address]- 6017 May, [facility] [id number] [place] [address] 37349- 3267 May, [facility] [id number] [place] [address] 57085- 2588 Apr, [facility] [id number] [place] [address] 86068- 8669 Apr, [facility] [id number] [place] [address] 04807- 0699 Apr, [facility] [id number] [place] [address] 44412- 2142 Apr, [facility] [id number] [place] [address] 75106- 9672 Apr, Posttraumatic stress disorder F43.10 and Trigeminal neuralgia of right side of face G50.0 [facility] [address], [place] [address]- 3948 Apr, [facility] [address], [place] [address] 2545 Apr, [facility] [address], [place] [address]- 4800 Apr, [facility] [address] [id number], [place] [address]- 2804 Mar, Trigeminal neuralgia of right side of face G50.0 [facility] [address], [place] [address]- 3878 Mar, [facility] [address] [id number], [place] [address]- 8376 Mar, Posttraumatic stress disorder F43.10 and Mood disorder F39 [facility] [address] [facility] [id number], [place] [address] 2546 Mar, [facility] [address] [facility] [id number], [place] [address] 2546 Mar, [facility] [address] [facility] [id number] [place] [address] 51319 2546 Mar, [facility] [address] [facility] [id number] [place] [address] 41658 2546 Mar, [facility] [address] [facility] [id number] [place] [address] 16497 2546 Mar, [facility] [address] [id number], [place] [address]- 3886 Mar, Posttraumatic stress disorder F43.10 and Mood disorder F39 [facility] [address] [facility] [id number], [place] [address] 2546 Mar, Chronic pain disorder G89.4 [facility] [id number], [place] [address] 2546 Feb, Chronic pain disorder G89.4 [facility] [address] [id number], [place] [address] 2546 Feb, [facility] [address], [place] [address] 2546 Feb, [facility] [address] [id number], [place] [address] 2546 Feb, Trigeminal neuralgia of right side of face G50.0 [facility] [address] [id number], [place] [address] 2546 Feb, [facility] [address] [facility] [id number], [place] [address] 2546 Feb, Posttraumatic stress disorder F43.10 ; Mood disorder F39 and Panic attacks F41.0 [facility] [address] [facility] [id number], [place] [address] 2546 13 Feb, 2016 [facility] [address] [facility] [id number] [place] [address] 37016 2546 Feb, [facility] [address] [facility] [id number], [place] [address] 2546 Feb, [facility] [address] [facility] [id number] [place] [address] 80915 2546 27 Jan, 2016 Trigeminal neuralgia of right side of face G50.0 [facility] [address] [id number] [place] [address] 71059 2546 Jan, [facility] [address] [facility] [id number] [place] [address] 05421 2546 Jan, [facility] [id number] [place] [address] 69187 2546 Jan, Trigeminal neuralgia of right side of face G50.0 [facility] [address] [facility] [id number], [place] [address] 2546 Jan, Trigeminal neuralgia of right side of face G50.0 [facility] [address] [facility] [id number], [place] [address] 2546 Jan, [facility] [address] [id number], [place] [address] 2546 Dec, [facility] [address] [facility] [id number], [place] [address] 2546 Dec, Trigeminal neuralgia of right side of face G50.0 [facility] [address] [facility] [id number], [place] [address] 2546 Dec, [facility] [address] [facility] [id number], [place] [address] 2546 Nov, Posttraumatic stress disorder F43.10 ; Mood disorder F39 and Panic attacks F41.0 [facility] [address], [place] [address]- 3657 Nov, Posttraumatic stress disorder F43.10 and Mood disorder F39 [facility] [id number] [place] [address] 01767- 3056 Nov, [facility] [id number] [place] [address] 88424 2546 Nov, [facility] [id number] [place] [address] 48151- 6325 Nov, Confused R41.0 and Mood disorder F39 [facility] [id number] [place] [address] 70295- 4405 Oct, Mood disorder F39 ; Posttraumatic stress disorder F43.10 and Dementia associated with other underlying disease with behavioral disturbance F02.81 [facility] [id number] [place] [address] 74686- 1577 Oct, [facility] [id number] [place] [address] 17612- 0165 Oct, [facility] [id number] [place] [address] 53230- 6499 Oct, [facility] [id number] [place] [address] 32675- 3370 Oct, [facility] [address] [place] [address] 47590- 3561 Oct, Posttraumatic stress disorder F43.10 and Mood disorder F39 [facility] [address]005[address], [place] [address]- 8087 Oct, [facility] [id number] [place] [address] 35342- 4410 Oct, Establishing care with new doctor, encounter for Z71.89 [facility] [address], [place] [address]- 0144 Oct, Mood disorder F39 and Posttraumatic stress disorder F43.10 [facility] [id number] [place] [address] 20165- 7294 07 Oct, 2015 Establishing care with new doctor, encounter for Z71.89 and Dysthymia F34.1 [facility] [id number] [place] [address] 48088- 3654 September, Posttraumatic stress disorder F43.10 and Dementia associated with other underlying disease with behavioral disturbance F02.81 [address] [id number] [place] [address] 96306- 5099 September, Mood disorder F39 ; Posttraumatic stress disorder F43.10 ; Generalized anxiety disorder F41.1 ; Panic attacks F41.0 and Social anxiety disorder F40.10 [place] [id number] [place] [address] 29918- 0067 September, [facility] [id number] [place] [address] 33342 -2254 September, Acute pain of right shoulder M25.511 [facility] [id number] [place] [address] 54234- 0320 September, [facility] [id number] [place] [address] 01852- 5316 September, Posttraumatic stress disorder F43.10 and Mood disorder F39 [address] [id number] [place] [address] 53493- 3687 Jul, [facility] [id number] [place] [address] 64090- 3218 Jul, Posttraumatic stress disorder F43.10 and Mood disorder F39 [facility] [id number] [place] [address] 72166- 8913 Jul, Mood disorder F39 and Posttraumatic stress disorder F43.10 [place] [id number] [place] [address] 04631- 0040 Jul, Posttraumatic stress disorder F43.10 and Mood disorder F39 [place] [id number] [place] [address] 81108- 0556 Jun, Posttraumatic stress disorder F43.10 and Mood disorder F39 IMMUNIZATIONS No Known Immunizations SOCIAL HISTORY Never Assessed REASON FOR VISIT Refill request PLAN OF CARE VITAL SIGNS MEDICATIONS Medication Instructions Dosage Frequency Start Date End Date Duration Status Lamotrigine 25 MG Orally Twice a day 3 tablets 12h 30 days Active Gabapentin 800 MG Orally 3 times a day 1 tablet 8h 30 days Active Carbamazepine 200 MG Orally 3 times a day 1 tablet 8h 30 days Active Amitriptyline HCl 150 MG Orally Once a day 1 tablet 24h Nov, 30 days Active BusPIRone HCl 10 mg Orally 3 times a day 1 tablet as needed 8h 02 Mar, 2016 30 days Active Baclofen 10 mg Orally Three times a day 1 tablet with food or milk 8h 30 days Active Topamax 50 mg Orally Twice a day 1 tablet 12h 30 days Active Trintellix 5 mg Orally Once a day 1 tablet 24h 13 Oct, 2016 30 days Active RESULTS No Results [...] Spider Bite Hospitalization History AMS, bilat PE, pneumonia-[facility] 07/12/16
--- OUTSIDE RECORDS SUMMARY | 2017-09-11 09:08 | XMS REPORT ---
Author Author MASSIMO BOYD [facility] Address [address] [place] [address] Care Team Providers Care [employer] Name Role Phone MASSIMO BOYD Unavailable PROBLEMS Type Condition ICD9-CM Code [id number] Code Onset Dates Condition Status SNOMED Code Problem Referred by primary care physician Z76.89 Active 3093975351084 Problem Posttraumatic stress disorder F43.10 Active 53387430 Problem Mood disorder F39 Active 47624566 Problem Other acute pulmonary embolism without acute cor pulmonale I26.99 Active 579907324 Problem Severe episode of recurrent major depressive disorder, without psychotic features F33.2 Active 46158949 Problem Trigeminal neuralgia of right side of face G50.0 Active 09781524 Problem Panic attacks F41.0 Active 460880651 Problem Personality disorder in adult F60.9 Active 99749375 Problem Chronic pain disorder G89.4 Active 179668582 ALLERGIES No Information ENCOUNTERS Encounter Location Date Diagnosis [facility] [id number] [place] [address] 67098- 8712 Feb, [facility] [id number] [place] [address] 90887- 9719 Jan, [facility] [id number] [place] [address] 92690- 0906 Jan, [facility] [id number] [place] [address] 97409- 5447 Jan, [facility] [id number] [place] [address] 40525- 5808 Jan, [facility] [id number] [place] [address] 38694- 6439 Dec, [facility] [id number] [place] [address] 56980- 0166 Dec, Posttraumatic stress disorder F43.10 [facility] [id number] [address]8 Dec, [facility] [address] [id number] [address] 7328 Dec, [facility] [id number] [address] 5397 Dec, [facility] [id number] [place] [address] 92007- 3741 Dec, [facility] [id number] [place] [address] 73627- 8417 Dec, [facility] [id number] [place] [address] 25486- 0877 Dec, [facility] [id number] [place] [address] 05828- 2902 Dec, [facility] [id number] [address]- 4726 Dec, [facility] [id number] [address] 6783 Dec, Posttraumatic stress disorder F43.10 ; Severe episode of recurrent major depressive disorder, without psychotic features F33.2 and Personality disorder in adult F60.9 [facility] [id number] [address] 4393 Nov, [facility] [id number] [address] 9136 Oct, [facility] [id number] [address]- 5579 Oct, [facility] [id number] [address] 8515 Oct, [facility] [id number] [address] 5380 Oct, Posttraumatic stress disorder F43.10 ; Severe episode of recurrent major depressive disorder, without psychotic features F33.2 and Personality disorder in adult F60.9 [facility] [address] [facility] [id number] [place] [address]- 0204 Oct, [facility] [address] [facility] [id number] [place] [address]- 2528 Oct, [facility] [address] [facility] [id number] [place] [address]- 8382 September, [facility] [address] [id number] [place] [address]- 6774 September, [facility] [address] [facility] [id number] [place] [address]- 4812 September, [facility] [address] [facility] [id number] [place] [address]- 5806 September, [facility] [address] [id number] [place] [address]- 9847 September, [facility] [address] [id number] [place] [address]- 3757 September, [facility] [address] [id number] [address]- 8373 September, [facility] [address] [id number] [address]- 4868 September, Posttraumatic stress disorder F43.10 ; Severe episode of recurrent major depressive disorder, without psychotic features F33.2 and Personality disorder in adult F60.9 [facility] [address] [facility] [id number] [address] 9147 September, [facility] [address] [id number] [place] [address]- 6301 September, [facility] [address] [facility] [id number] [place] [address]- 7447 September, Other pulmonary embolism without acute cor pulmonale, unspecified chronicity I26.99 [facility] [place] [facility] [address] [id number] [place] [address]- 9546 September, [facility] [place] [facility] [address] [id number] [place] [address]- 3176 September, [facility] [place] [facility] [address] [id number] [place] [address] 2546 September, [facility] [place] [facility] [address] [id number] [place] [address]- 1339 September, [facility] [place] [facility] [address] [id number] [place] [address]- 9450 September, [facility] [place] [facility] [address] [id number] [place] [address]- 7928 Aug, [facility] [place] [facility] [address] [id number] [place] [address]- 2910 Aug, [facility] [place] [facility] [address] [id number] [place] [address]- 5336 Aug, [facility] [place] [facility] [address] [id number] [place] [address]- 1513 Aug, [facility] [place] [facility] [address] [id number] [place] [address]- 1460 Aug, [facility] [place] [facility] [address] [id number] [place] [address]- 9330 Aug, [facility] [place] [facility] [address] [id number] [place] [address]- 3712 Jul, [facility] [place] [facility] [address] [id number] [place] [address]- 6463 Jul, [facility] [place] [facility] [address] [id number] [place] [address]- 5176 Jul, [facility] [address] [id number] [place] [id number] Jul, [facility] [place] [facility] [address] [id number] [place] [address]293 Jul, [facility] [address] [id number] [address]- 3221 Jul, [facility] [id number] [address] Jul, Other specified bacterial agents as the cause of diseases classified elsewhere B96.89 and Local infection of the skin and subcutaneous tissue, unspecified L08.9 [facility] [id number] [address]- 6842 Jul, [facility] [address] [id number] [address]- 5053 Jun, [facility] [id number] [address]- 5419 Jun, [facility] [id number], [place] [address]85 Jun, [facility] [id number] [address]- 0425 Jun, [facility] [address] [id number], [place] [address]- 9335 May, [facility] [id number] [address]- 4266 May, [facility] [address] [id number] [address]- 9576 May, Neurodermatitis L28.0 [facility] [address] [id number] [address]- 8634 May, [facility] [address] [id number] [address]- 5351 May, [facility] [id number], [place] [address]- 9618 May, [facility] [address] [id number] [address]- 7160 May, [facility] [id number] [address]- 8257 May, Screening, lipid Z13.220 and High risk medication use Z79.899 [facility] [id number] [address]- 1536 May, [facility] [id number] [address]- 1985 May, [facility] [id number] [place] [address] 64378- 3026 May, [facility] [id number] [place] [address] 66411- 5516 Apr, [facility] [id number] [place] [address] 45749- 7699 Apr, [facility] [id number] [place] [address] 31543- 0053 Apr, [facility] [id number] [place] [address] 05575- 1501 Apr, [facility] [id number] [place] [address] 48463- 3154 Apr, Posttraumatic stress disorder F43.10 and Trigeminal neuralgia of right side of face G50.0 [facility] [id number], [place] [address]- 2256 Apr, [facility] [id number], [place] [address] 2545 Apr, [facility] [id number], [place] [address]- 9663 Apr, [facility] [address] [id number], [place] [address]- 6397 Mar, Trigeminal neuralgia of right side of face G50.0 [facility] [id number] [address]- 1995 Mar, [facility] [address] [id number] [address]- 4526 Mar, Posttraumatic stress disorder F43.10 and Mood disorder F39 [facility] [address] [facility] [id number], [place] [address] 2546 Mar, [facility] [address] [facility] [id number] [address] 2546 Mar, [facility] [address] [facility] [id number] [place] [address] 05204 2546 Mar, [facility] [address] [facility] [id number] [place] [address] 35405 2546 Mar, [facility] [address] [facility] [id number] [place] [address] 11116 2546 Mar, [facility] [address] [id number] [address]- 6986 Mar, Posttraumatic stress disorder F43.10 and Mood disorder F39 [facility] [address] [facility] [id number], [place] [address] 2546 Mar, Chronic pain disorder G89.4 [facility] [address] [id number], [place] [address] 2546 Feb, Chronic pain disorder G89.4 [facility] [address] [id number] [address] 2546 Feb, [facility] [id number], [place] [address] 2546 Feb, [facility] [address] [id number] [address] 2546 Feb, Trigeminal neuralgia of right side of face G50.0 [facility] [address] [id number] [address] 2546 Feb, [facility] [address] [facility] [id number] [address] 2546 Feb, Posttraumatic stress disorder F43.10 ; Mood disorder F39 and Panic attacks F41.0 [facility] [address] [facility] [id number] [address] 2546 13 Feb, 2016 [facility] [address] [facility] [id number] [place] [address] 50377 2546 Feb, [facility] [address] [facility] [id number] [address] 2546 Feb, [facility] [address] [facility] [id number] [place] [address] 47439 2546 27 Jan, 2016 Trigeminal neuralgia of right side of face G50.0 [facility] [address] [id number] [place] [address] 78825 2546 Jan, [facility] [address] [facility] [id number] [place] [address] 33178 2546 Jan, [facility] [id number] [place] [address] 80024 2546 Jan, Trigeminal neuralgia of right side of face G50.0 [facility] [address] [facility] [id number] [address] 2546 Jan, Trigeminal neuralgia of right side of face G50.0 [facility] [address] [facility] [id number] [address] 2546 Jan, [facility] [address] [id number] [address] 2546 Dec, [facility] [address] [facility] [id number] [address] 2546 Dec, Trigeminal neuralgia of right side of face G50.0 [facility] [address] [facility] [id number], [place] [address] 2546 Dec, [facility] [address] [facility] [id number] [address] 2546 Nov, Posttraumatic stress disorder F43.10 ; Mood disorder F39 and Panic attacks F41.0 [facility] [address] [address]- 0308 Nov, Posttraumatic stress disorder F43.10 and Mood disorder F39 [facility] [id number] [place] [address] 28225- 5966 Nov, [facility] [id number] [place] [address] 53333 2546 Nov, [facility] [id number] [place] [address] 46858- 9801 Nov, Confused R41.0 and Mood disorder F39 [facility] [id number] [place] [address] 35835- 0330 Oct, Mood disorder F39 ; Posttraumatic stress disorder F43.10 and Dementia associated with other underlying disease with behavioral disturbance F02.81 [facility] [id number] [place] [address] 88449- 3616 Oct, [facility] [id number] [place] [address] 49674- 4408 Oct, [facility] [id number] [place] [address] 19983- 8157 Oct, [facility] [id number] [place] [address] 68042- 8139 Oct, [facility] [id number] [place] [address] 28813- 1316 Oct, Posttraumatic stress disorder F43.10 and Mood disorder F39 [facility] [address] [address]- 3968 Oct, [facility] [id number] [place] [address] 90201- 7796 Oct, Establishing care with new doctor, encounter for Z71.89 [facility] [address], [place] [address]- 2010 Oct, Mood disorder F39 and Posttraumatic stress disorder F43.10 [facility] [id number] [place] [address] 57138- 3734 07 Oct, 2015 Establishing care with new doctor, encounter for Z71.89 and Dysthymia F34.1 [facility] [id number] [place] [address] 79821- 1697 September, Posttraumatic stress disorder F43.10 and Dementia associated with other underlying disease with behavioral disturbance F02.81 [facility] [id number] [place] [address] 78722- 1829 September, Mood disorder F39 ; Posttraumatic stress disorder F43.10 ; Generalized anxiety disorder F41.1 ; Panic attacks F41.0 and Social anxiety disorder F40.10 [facility] [id number] [place] [address] 28070- 5993 September, [facility] [id number] [place] [address] 70658 -7008 September, Acute pain of right shoulder M25.511 [facility] [id number] [place] [address] 74989- 0712 September, [facility] [id number] [place] [address] 67228- 8427 September, Posttraumatic stress disorder F43.10 and Mood disorder F39 [facility] [id number] [place] [address] 66361- 6678 Jul, [facility] [id number] [place] [address] 89578- 0027 Jul, Posttraumatic stress disorder F43.10 and Mood disorder F39 [facility] [id number] [place] [address] 81800- 2753 Jul, Mood disorder F39 and Posttraumatic stress disorder F43.10 [facility] [id number] [place] [address] 93726- 8610 Jul, Posttraumatic stress disorder F43.10 and Mood disorder F39 [facility] [id number] [place] [address] 48523- 6736 Jun, Posttraumatic stress disorder F43.10 and Mood disorder F39 IMMUNIZATIONS No Known Immunizations SOCIAL HISTORY Never Assessed REASON FOR VISIT Referral Request PLAN OF CARE VITAL SIGNS MEDICATIONS [...]
--- OUTSIDE RECORDS SUMMARY | 2017-09-11 09:09 | XMS REPORT ---
Author Author MASSIMO BOYD [facility] Address [address] [place] [address] Care Team Providers Care Front Desk Attendant Name Role Phone MASSIMO BOYD Unavailable PROBLEMS Type Condition ICD9-CM Code [id number] Code Onset Dates Condition Status SNOMED Code Problem Referred by primary care physician Z76.89 Active 0889190148500 Problem Posttraumatic stress disorder F43.10 Active 02137671 Problem Mood disorder F39 Active 91496822 Problem Other acute pulmonary embolism without acute cor pulmonale I26.99 Active 591091938 Problem Severe episode of recurrent major depressive disorder, without psychotic features F33.2 Active 20299351 Problem Trigeminal neuralgia of right side of face G50.0 Active 00134002 Problem Panic attacks F41.0 Active 348851149 Problem Personality disorder in adult F60.9 Active 55273599 Problem Chronic pain disorder G89.4 Active 101054032 ALLERGIES No Information ENCOUNTERS Encounter Location Date Diagnosis [facility] [id number] [place] [address] 97722- 4592 Feb, [facility] [id number] [place] [address] 37837- 7923 Jan, [facility] [id number] [place] [address] 10487- 4329 Jan, [facility] [id number] [place] [address] 14715- 5132 Jan, [facility] [id number] [place] [address] 35309- 1681 Jan, [facility] [id number] [place] [address] 25820- 5708 Dec, [facility] [id number] [place] [address] 29047- 0093 Dec, Posttraumatic stress disorder F43.10 [facility] [address] [address] Dec, [facility] [address] [id number] [address] 0768 Dec, [facility] [address] [address] 7563 Dec, [facility] [id number] [place] [address] 32803- 5650 Dec, [facility] [id number] [place] [address] 40571- 0491 Dec, [facility] [id number] [place] [address] 13224- 4281 Dec, [facility] [id number] [place] [address] 88419- 9822 Dec, [facility] [address] [address]- 6775 Dec, [facility] [address] [address]- 3889 Dec, Posttraumatic stress disorder F43.10 ; Severe episode of recurrent major depressive disorder, without psychotic features F33.2 and Personality disorder in adult F60.9 [facility] [address] [address] 5273 Nov, [facility] [address] [address]- 2152 Oct, [facility] [address] [address]- 8074 Oct, [facility] [address] [address]- 8604 Oct, [facility] [address] [address]- 2053 Oct, Posttraumatic stress disorder F43.10 ; Severe episode of recurrent major depressive disorder, without psychotic features F33.2 and Personality disorder in adult F60.9 [facility] [address] [facility] [id number] [place] [address]- 8365 Oct, [facility] [address] [facility] [id number] [place] [address]- 4036 Oct, [facility] [address] [facility] [id number] [place] [address]- 8439 September, [facility] [address] [id number] [place] [address]- 0500 September, [facility] [address] [facility] [id number] [place] [address]- 7779 September, [facility] [address] [facility] [id number] [place] [address]- 9954 September, [facility] [id number] [place] [address]- 7443 September, [facility] [id number] [place] [address]- 4311 September, [facility] [id number] [address]- 4667 September, [facility] [id number] [address]- 4390 September, Posttraumatic stress disorder F43.10 ; Severe episode of recurrent major depressive disorder, without psychotic features F33.2 and Personality disorder in adult F60.9 [facility] [address] [facility] [id number] [address]- 6544 September, [facility] [address] [id number] [place] [address]- 7716 September, [facility] [address] [facility] [id number] [place] [address]- 8401 September, Other pulmonary embolism without acute cor pulmonale, unspecified chronicity I26.99 [facility] [place] [facility] [address] [id number] [place] [address]- 6176 September, [facility] [place] [facility] [address] [id number] [place] [address]- 0251 September, [facility] [place] [facility] [address] [id number] [place] [address] 2546 September, [facility] [place] [facility] [address] [id number] [place] [address]- 0205 September, [facility] [place] [facility] [address] [id number] [place] [address]- 7810 September, [facility] [place] [facility] [address] [id number] [place] [address]- 1034 Aug, [facility] [place] [facility] [address] [id number] [place] [address]- 5830 Aug, [facility] [place] [facility] [address] [id number] [place] [address]- 7703 Aug, [facility] [place] [facility] [address] [id number] [place] [address]- 2886 Aug, [facility] [place] [facility] [address] [id number] [place] [address]- 7674 Aug, [facility] [place] [facility] [address] [id number] [place] [address]- 3029 Aug, [facility] [place] [facility] [address] [id number] [place] [address]- 7109 Jul, [facility] [place] [facility] [address] [id number] [place] [address]- 7275 Jul, [facility] [place] [facility] [address] [id number] [place] [address]- 1803 Jul, [facility] [address] [id number] [place] [id number] Jul, [facility] [place] [facility] [address] [id number] [place] 6[address] Jul, [facility] [address] [id number] [address]- 0550 Jul, [facility] [address] [address] Jul, Other specified bacterial agents as the cause of diseases classified elsewhere B96.89 and Local infection of the skin and subcutaneous tissue, unspecified L08.9 [facility] [address] [address]- 7424 Jul, [facility] [address] [id number] [address]- 8354 Jun, [facility] [id number] [address]- 1789 Jun, [facility] [id number] [address] -6283 Jun, [facility] [address] [address]- 2596 Jun, [facility] [address] [id number] [address]- 8310 May, [facility] [address] [address]- 6588 May, [facility] [id number] [address]- 4240 May, Neurodermatitis L28.0 [facility] [id number] [address]- 4531 May, [facility] [id number] [address]- 6936 May, [facility] [address] [address]- 4670 May, [facility] [id number] [address]- 3912 May, [facility] [address] [address]- 6070 May, Screening, lipid Z13.220 and High risk medication use Z79.899 [facility] [address] [address]- 1546 May, [facility] [address] [address]- 4080 May, [facility] [id number] [place] [address] 47418- 0671 May, [facility] [id number] [place] [address] 81778- 5796 Apr, [facility] [id number] [place] [address] 28870- 4964 Apr, [facility] [id number] [place] [address] 98232- 5434 Apr, [facility] [id number] [place] [address] 22957- 3675 Apr, [facility] [id number] [place] [address] 01786- 3031 Apr, Posttraumatic stress disorder F43.10 and Trigeminal neuralgia of right side of face G50.0 [facility] [address], [place] [address]- 2300 Apr, [facility] [id number], [place] [address] 2544 Apr, [facility] [address] [address]- 7812 Apr, [facility] [address] [id number] [address]- 3149 Mar, Trigeminal neuralgia of right side of face G50.0 [facility] [id number] [address]- 9126 Mar, [facility] [address] [id number] [address]- 9966 Mar, Posttraumatic stress disorder F43.10 and Mood disorder F39 [facility] [address] [facility] [id number] [address] 2546 Mar, [facility] [address] [facility] [id number] [address] 2546 Mar, [facility] [address] [facility] [id number] [place] [address] 94877 2546 Mar, [facility] [address] [facility] [id number] [place] [address] 36197 2546 Mar, [facility] [address] [facility] [id number] [place] [address] 26164 2546 Mar, [facility] [address] [id number] [address]- 3856 Mar, Posttraumatic stress disorder F43.10 and Mood disorder F39 [facility] [address] [facility] [id number] [address] 2546 Mar, Chronic pain disorder G89.4 [facility] [id number] [address] 2546 Feb, Chronic pain disorder G89.4 [facility] [address] [id number] [address] 2546 Feb, [facility] [address] [address] 2546 Feb, [facility] [address] [id number] [address] 2546 Feb, Trigeminal neuralgia of right side of face G50.0 [facility] [address] [id number] [address] 2546 Feb, [facility] [address] [facility] [id number] [address] 2546 Feb, Posttraumatic stress disorder F43.10 ; Mood disorder F39 and Panic attacks F41.0 [facility] [address] [facility] [id number] [address] 2546 13 Feb, 2016 [facility] [address] [facility] [id number] [place] [address] 16663 2546 Feb, [facility] [address] [facility] [id number] [address] 2546 Feb, [facility] [address] [facility] [id number] [place] [address] 74655 2546 27 Jan, 2016 Trigeminal neuralgia of right side of face G50.0 [facility] [address] [id number] [place] [address] 31722 2546 Jan, [facility] [address] [facility] [id number] [place] [address] 51120 2546 Jan, [facility] [id number] [place] [address] 08566 2546 Jan, Trigeminal neuralgia of right side of face G50.0 [facility] [address] [facility] [id number] [address] 2546 Jan, Trigeminal neuralgia of right side of face G50.0 [facility] [address] [facility] [id number] [address] 2546 Jan, [facility] [address] [id number] [address] 2546 Dec, [facility] [address] [facility] [id number], [place] [address] 2546 Dec, Trigeminal neuralgia of right side of face G50.0 [facility] [address] [facility] [id number] [address] 2546 Dec, [facility] [address] [facility] [id number], [place] [address] 2546 Nov, Posttraumatic stress disorder F43.10 ; Mood disorder F39 and Panic attacks F41.0 [facility] [address], [place] [address]- 5028 Nov, Posttraumatic stress disorder F43.10 and Mood disorder F39 [facility] [id number] [place] [address] 18792- 7686 Nov, [facility] [id number] [place] [address] 63661 2546 Nov, [facility] [id number] [place] [address] 80214- 6598 Nov, Confused R41.0 and Mood disorder F39 [facility] [id number] [place] [address] 55227- 0449 Oct, Mood disorder F39 ; Posttraumatic stress disorder F43.10 and Dementia associated with other underlying disease with behavioral disturbance F02.81 [facility] [id number] [place] [address] 28111- 1441 Oct, [facility] [id number] [place] [address] 94362- 9601 Oct, [facility] [id number] [place] [address] 77443- 6247 Oct, [facility] [id number] [place] [address] 55718- 0606 Oct, [facility] [id number] [place] [address] 20039- 0517 Oct, Posttraumatic stress disorder F43.10 and Mood disorder F39 [facility] [address] [address]- 9661 Oct, [facility] [id number] [place] [address] 10754- 2242 Oct, Establishing care with new doctor, encounter for Z71.89 [facility] [address], [place] [address]- 6765 Oct, Mood disorder F39 and Posttraumatic stress disorder F43.10 [facility] [id number] [place] [address] 03748- 3200 07 Oct, 2015 Establishing care with new doctor, encounter for Z71.89 and Dysthymia F34.1 [facility] [id number] [place] [address] 27992- 4287 September, Posttraumatic stress disorder F43.10 and Dementia associated with other underlying disease with behavioral disturbance F02.81 [facility] [id number] [place] [address] 80077- 3328 September, Mood disorder F39 ; Posttraumatic stress disorder F43.10 ; Generalized anxiety disorder F41.1 ; Panic attacks F41.0 and Social anxiety disorder F40.10 [facility] [id number] [place] [address] 76104- 1838 September, [facility] [id number] [place] [address] 24412 -7243 September, Acute pain of right shoulder M25.511 [facility] [id number] [place] [address] 00372- 3602 September, [facility] [id number] [place] [address] 83260- 1428 September, Posttraumatic stress disorder F43.10 and Mood disorder F39 [facility] [id number] [place] [address] 64112- 9399 Jul, [facility] [id number] [place] [address] 80379- 1176 Jul, Posttraumatic stress disorder F43.10 and Mood disorder F39 [facility] [id number] [place] [address] 23703- 9413 Jul, Posttraumatic stress disorder F43.10 and Mood disorder F39 [facility] [id number] [place] [address] 67981- 4392 Jul, Posttraumatic stress disorder F43.10 and Mood disorder F39 [address] [facility] [id number] [place] [address] 06397- 9166 Jun, Posttraumatic stress disorder F43.10 and Mood disorder F39 IMMUNIZATIONS No Known Immunizations SOCIAL HISTORY Never Assessed REASON FOR VISIT Question PLAN OF CARE VITAL SIGNS MEDICATIONS Unknown [...]
--- OUTSIDE RECORDS SUMMARY | 2017-09-11 09:12 | XMS REPORT | Continuity of Care Document ---
Author Author [facility] [address] Organization [facility] [address] Address Unknown Phone Unavailable Allergies Active Description Code Type Severity Reaction Onset Reported/Identified Relationship to Patient Clinical Status Yes No Known Drug Allergies [id number] Drug Allergy Unknown N/A 06/09/2014 Medications There [...] Ot 716.97 ARTHROPATHY NOS-ANKLE 01/06/2015 HUMAIRA HARVEY [employer]IM[employer] Ot 719.47 JOINT PAIN-ANKLE 02/10/2015 HUMAIRA HARVEY [employer]IM[employer] Ot K02.9 DENTAL CARIES, UNSPECIFIED 02/10/2015 HUMAIRA HARVEY APRN Ot K08.8 OTHER SPECIFIED DISORDERS OF TEETH AND S 02/29/2016 MASSIMO BOYD WORK FROM HOME Ot 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 03/05/2016 MASSIMO BOYD [...] IMMUNIZATION 09/01/2016 LANDON GODOY DO Ot Z79.01 SNF (CURRENT) USE OF ANTICOAGULANT 09/01/2016 LANDON GODOY DO Ot Z79.899 OTHER SNF (CURRENT) DRUG THERAPY 09/01/2016 LANDON GODOY DO, Ot Z86.711 PERSONAL HISTORY OF PULMONARY EMBOLISM 09/02/2016 JAYNE LANDON Elian Ot F17.210 NICOTINE DEPENDENCE, CIGARETTES, UNCOMPL 09/02/2016 JAYNE DO LANDON Elian Ot 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 09/02/2016 JAYNE DAVONTE CHRISA Elian Ot G89.29 OTHER CHRONIC PAIN 09/02/2016 TATUM DO LANDON Elian Ot M54.5 LOW BACK PAIN 09/02/2016 JAYNE , LANDON K Ot N39.0 URINARY TRACT INFECTION, SITE NOT SPECIF 09/02/2016 TATUM DAVONTE CHRISA Elian Ot R51 HEADACHE 09/02/2016 TATUM DAVONTE CHRISA Elian Ot Z23 ENCOUNTER FOR IMMUNIZATION 09/02/2016 TATUM LANDON CHRIS Ot Z79.01 ULTRA SOUND TECHNICIAN (CURRENT) USE OF ANTICOAGULANT 09/02/2016 JAYNE DAVONTE CHRISA Elian Ot Z79.899 OTHER ULTRA SOUND TECHNICIAN (CURRENT) DRUG THERAPY 09/02/2016 JAYNE LANDON CHRIS [...] 09/03/2016 JAYNE DAVONTE CHRISA Elian Ot Z79.01 SNF (CURRENT) USE OF ANTICOAGULANT 09/03/2016 JAYNE DAVONTE CHRISA K Ot Z79.899 OTHER ULTRA SOUND TECHNICIAN (CURRENT) DRUG THERAPY 09/03/2016 JAYNE LANDON CHRIS [...] IMMUNIZATION 09/03/2016 JAYNE LANDON CHRIS Ot Z79.01 SNF (CURRENT) USE OF ANTICOAGULANT 09/03/2016 JAYNE DAVONTE CHRISA K Ot Z79.899 OTHER ULTRA SOUND TECHNICIAN (CURRENT) DRUG THERAPY 09/03/2016 JAYNE DAVONTE CHRISA K Ot Z86.711 PERSONAL HISTORY OF PULMONARY EMBOLISM 09/03/2016 JAYNE DAVONTE CHRISA K Ot F17.210 NICOTINE DEPENDENCE, CIGARETTES, UNCOMPL 09/03/2016 TATUM DODAVONTEA K Ot 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 09/03/2016 TATUM DODAVONTEA K Ot G89.29 OTHER CHRONIC PAIN 09/03/2016 TATUM DODAVONTEA K Ot M54.5 LOW BACK PAIN 09/03/2016 TATUM DODAVONTEA K Ot N39.0 URINARY TRACT INFECTION, SITE NOT SPECIF 09/03/2016 JAYNE DAVONTE CHRISA K Ot R51 HEADACHE 09/03/2016 JAYNE DODAVONTEA K Ot Z23 ENCOUNTER FOR IMMUNIZATION 09/03/2016 JAYNE LANDON CHRIS Ot Z79.01 SNF (CURRENT) USE OF ANTICOAGULANT 09/03/2016 JAYNE DAVONTE CHRISA K Ot Z79.899 OTHER SNF (CURRENT) DRUG THERAPY 09/03/2016 JAYNE LANDON CHRIS [...] K Ot Z23 ENCOUNTER FOR IMMUNIZATION 09/03/2016 TATUM DO, LANDON K Ot Z79.01 SNF (CURRENT) USE OF ANTICOAGULANT 09/03/2016 TATUM DO, LANDON K Ot Z79.899 OTHER ULTRA SOUND TECHNICIAN (CURRENT) DRUG THERAPY 09/03/2016 JAYNE DO, LANDON [...] K Ot Z23 ENCOUNTER FOR IMMUNIZATION 09/12/2016 TATUM DO, LANDON K Ot Z79.01 SNF (CURRENT) USE OF ANTICOAGULANT 09/12/2016 TATUM DO, LANDON K Ot Z79.899 OTHER ULTRA SOUND TECHNICIAN (CURRENT) DRUG THERAPY 09/12/2016 TATUM DO, LANDON K Ot Z86.711 PERSONAL HISTORY OF PULMONARY EMBOLISM 12/12/2016 TATUM DO, LANDON K Ot F17.210 NICOTINE DEPENDENCE, CIGARETTES, UNCOMPL 12/12/2016 JAYNE DO, LANDON K Ot 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 12/12/2016 JAYNE DO, LANDON K Ot G89.29 OTHER CHRONIC PAIN 12/12/2016 JAYNE DO, LANDON K Ot M54.5 LOW BACK PAIN 12/12/2016 JAYNE DO, LNADON K Ot N39.0 URINARY TRACT INFECTION, SITE NOT SPECIF 12/12/2016 JAYNE DO, LANDON K Ot R51 HEADACHE 12/12/2016 JAYNE DO, LANDON K Ot Z23 ENCOUNTER FOR IMMUNIZATION 12/12/2016 JAYNE DO, LANDON K Ot Z79.01 SNF (CURRENT) USE OF ANTICOAGULANT 12/12/2016 JAYNE DO LANDON K Ot Z79.899 OTHER SNF (CURRENT) DRUG THERAPY 12/12/2016 JAYNE DO, LANDON K Ot Z86.711 PERSONAL HISTORY OF PULMONARY EMBOLISM 12/12/2016 JAYNE DO, LANDON K Ot F17.210 NICOTINE DEPENDENCE, CIGARETTES, UNCOMPL 12/12/2016 JAYNE DO, LANDON K Ot 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 12/12/2016 TATUM DO, LANDON K Ot G89.29 OTHER CHRONIC PAIN 12/12/2016 TATUM DO, LANDON K Ot M54.5 LOW BACK PAIN 12/12/2016 JAYNE DO, LANDON K Ot N39.0 URINARY TRACT INFECTION, SITE NOT SPECIF 12/12/2016 TATUM DO, LANDON K Ot R51 HEADACHE 12/12/2016 TATUM DO, LANDON K Ot Z23 ENCOUNTER FOR IMMUNIZATION 12/12/2016 [facility] LANDON K Ot Z79.01 SNF (CURRENT) USE OF ANTICOAGULANT 12/12/2016 [facility] LANDON K Ot Z79.899 OTHER ULTRA SOUND TECHNICIAN (CURRENT) DRUG THERAPY 12/12/2016 [facility] LANDON K Ot Z86.711 PERSONAL HISTORY OF PULMONARY EMBOLISM 12/12/2016 [facility], LANDON K Ot F17.210 NICOTINE DEPENDENCE, CIGARETTES, UNCOMPL 12/12/2016 [facility], LANDON K Ot 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 12/12/2016 [facility] LANDON K Ot G89.29 OTHER CHRONIC PAIN 12/12/2016 [facility], LANDON K Ot M54.5 LOW BACK PAIN 12/12/2016 TATUM DO, LANDON K Ot N39.0 URINARY TRACT INFECTION, SITE NOT SPECIF 12/12/2016 TATUM DO, LANDON K Ot R51 HEADACHE 12/12/2016 [facility], LANDON K Ot Z23 ENCOUNTER FOR IMMUNIZATION 12/12/2016 [facility], LANDON K Ot Z79.01 ULTRA SOUND TECHNICIAN (CURRENT) USE OF ANTICOAGULANT 12/12/2016 [facility] LANDON K Ot Z79.899 OTHER SNF (CURRENT) DRUG THERAPY 12/12/2016 [facility] LANDON K Ot Z86.711 PERSONAL HISTORY OF PULMONARY EMBOLISM 12/12/2016 TATUM DO, LANDON K Ot F17.210 NICOTINE DEPENDENCE, CIGARETTES, UNCOMPL 12/12/2016 JAYNE DO, LANDON K Ot 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 12/12/2016 [facility], LANDON K Ot G89.29 OTHER CHRONIC PAIN 12/12/2016 JAYNE DO, LANDON K Ot M54.5 LOW BACK PAIN 12/12/2016 TATUM DO, LANDON K Ot N39.0 URINARY TRACT INFECTION, SITE NOT SPECIF 12/12/2016 TATUM DO, LANDON K Ot R51 HEADACHE 12/12/2016 [facility], LANDON K Ot Z23 ENCOUNTER FOR IMMUNIZATION 12/12/2016 [facility], LANDON K Ot Z79.01 ULTRA SOUND TECHNICIAN (CURRENT) USE OF ANTICOAGULANT 12/12/2016 [facility], LANDON K Ot Z79.899 OTHER SNF (CURRENT) DRUG THERAPY 12/12/2016 [facility], LANDON K Ot Z86.711 PERSONAL HISTORY OF PULMONARY EMBOLISM 12/12/2016 MASSIMO BOYD Ot 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 12/12/2016 [facility], LANDON K Ot F17.210 NICOTINE DEPENDENCE, CIGARETTES, UNCOMPL 12/12/2016 [facility], LANDON K Ot 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 12/12/2016 [facility], LANDON K Ot G89.29 OTHER CHRONIC PAIN 12/12/2016 [facility], LANDON K Ot M54.5 LOW BACK PAIN 12/12/2016 [facility], LANDON K Ot N39.0 URINARY TRACT INFECTION, SITE NOT SPECIF 12/12/2016 [facility] LANDON K Ot R51 HEADACHE 12/12/2016 [facility], LANDON K Ot Z23 ENCOUNTER FOR IMMUNIZATION 12/12/2016 [facility] LANDON K Ot Z79.01 ULTRA SOUND TECHNICIAN (CURRENT) USE OF ANTICOAGULANT 12/12/2016 [facility] LANDON K Ot Z79.899 OTHER ULTRA SOUND TECHNICIAN (CURRENT) DRUG THERAPY 12/12/2016 [facility], LANDON K Ot Z86.711 PERSONAL HISTORY OF PULMONARY EMBOLISM 12/12/2016 JAYNE DO, LANDON K Ot F17.210 NICOTINE DEPENDENCE, CIGARETTES, UNCOMPL 12/12/2016 TATUM DO, LANDON K Ot 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 12/12/2016 TATUM DO, LANDON K Ot G89.29 OTHER CHRONIC PAIN 12/12/2016 TATUM DO, LANDON K Ot M54.5 LOW BACK PAIN 12/12/2016 TATUM DO, LANDON K Ot N39.0 URINARY TRACT INFECTION, SITE NOT SPECIF 12/12/2016 LANDON GODOY DO Ot R51 HEADACHE 12/12/2016 LANDON GODOY DO Ot Z23 ENCOUNTER FOR IMMUNIZATION 12/12/2016 LANDON GODOY DO Ot Z79.01 ULTRA SOUND TECHNICIAN (CURRENT) USE OF ANTICOAGULANT 12/12/2016 LANDON GODOY DO Ot Z79.899 OTHER ULTRA SOUND TECHNICIAN (CURRENT) DRUG THERAPY 12/12/2016 LANDON GODOY DO [...] CHRIS TERESA Ot Y92.[address] IN [facility] NON-[facility]IVATE 12/24/2016 TERESA LYNN DO Ot Z79.01 SNF (CURRENT) USE OF ANTICOAGULANT 12/24/2016 TERESA LYNN DO Ot Z79.899 OTHER ULTRA SOUND TECHNICIAN (CURRENT) DRUG THERAPY 12/24/2016 TERESA LYNN DO [...] CHRIS TERESA Ot Y92.[address] IN [facility] NON[facility] (PRIVATE 12/24/2016 TERESA LYNN DO Ot Z79.01 SNF (CURRENT) USE OF ANTICOAGULANT 12/24/2016 TERESA LYNN DO Ot Z79.899 OTHER SNF (CURRENT) DRUG THERAPY 12/24/2016 TERESA LYNN DO [...] IMMUNIZATION 12/27/2016 LANDON GODOY DO Ot Z79.01 SNF (CURRENT) USE OF ANTICOAGULANT 12/27/2016 LANDON GODOY DO Ot Z79.899 OTHER ULTRA SOUND TECHNICIAN (CURRENT) DRUG THERAPY 12/27/2016 LANDON GODOY DO Ot Z86.711 PERSONAL HISTORY OF PULMONARY EMBOLISM 08/18/2017 DELVIN RHODES MD Ot F17.210 NICOTINE DEPENDENCE, CIGARETTES, UNCOMPL 08/18/2017 DELVIN RHODES MD Ot 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 08/18/2017 DELVIN RHODES MD Ot F29 UNSP PSYCHOSIS NOT DUE TO A SUBSTANCE OR 08/18/2017 DELVIN RHODES MD Ot F31.9 BIPOLAR DISORDER, UNSPECIFIED 08/18/2017 DELVIN RHODES MD Ot F41.9 ANXIETY DISORDER, UNSPECIFIED 08/18/2017 DELVIN RHODES MD Ot F60.9 PERSONALITY DISORDER, UNSPECIFIED 08/18/2017 DELVIN RHODES MD, Ot G40.909 EPILEPSY, UNSP, NOT INTRACTABLE, WITHOUT 08/18/2017 EDLVIN RHODES MD Ot R44.1 VISUAL HALLUCINATIONS 08/18/2017 MEAGAN CELESTIN, DELVIN Monroy Ot Z87.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 08/19/2017 MASSIMO BOYD Ot 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 08/19/2017 JAYNE CHRIS LANDON Elian Ot F17.210 NICOTINE DEPENDENCE, CIGARETTES, UNCOMPL 08/19/2017 JAYNE CHRIS LANDON Elian Ot 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 08/19/2017 JAYNE CHRIS LANDON K Ot G89.29 OTHER CHRONIC PAIN 08/19/2017 JAYNE DO LANDON K Ot M54.5 LOW BACK PAIN 08/19/2017 JAYNE DO LANDON K Ot N39.0 URINARY TRACT INFECTION, SITE NOT SPECIF 08/19/2017 LANDON GODOY DO Ot R51 HEADACHE 08/19/2017 JAYNE CHRIS LANDON K Ot Z23 ENCOUNTER FOR IMMUNIZATION 08/19/2017 JAYNE CHRIS LANDON Elian Ot Z79.01 ULTRA SOUND TECHNICIAN (CURRENT) USE OF ANTICOAGULANT 08/19/2017 JAYNE CHRIS LANDON K Ot Z79.899 OTHER SNF (CURRENT) DRUG THERAPY 08/19/2017 JAYNE CHRIS LANDON Elian Ot Z86.711 PERSONAL HISTORY OF PULMONARY EMBOLISM [...] culture - 07/12/16 20:36 Bacterial blood culture [facility] Complete blood count (CBC) with automated white [...] Staphylococcus aureus (MRSA) screening culture NEG NRG Complete blood count (CBC) with automated white blood cell (WBC) differential - 08/17/17 08:40 Blood leukocytes automated count (number/volume) 14.2 10*3/uL 4.3-11.0 Blood erythrocytes automated count (number/volume) 4.24 10*6/uL 4.35-5.85 Venous blood hemoglobin measurement (mass/volume) 13.2 g/dL 11.5-16.0 Blood hematocrit (volume fraction) 39 % 35-52 Automated erythrocyte mean corpuscular volume 92 [foz_us] 80-99 Automated erythrocyte mean corpuscular hemoglobin (mass per erythrocyte) 31 pg 25-34 Automated erythrocyte mean corpuscular hemoglobin concentration measurement ( mass/volume) 34 g/dL 32-36 Automated erythrocyte distribution width ratio 12.9 % 10.0-14.5 Automated blood platelet count (count/volume) 343 10*3/uL 130-400 Automated blood platelet mean volume measurement 9.2 [foz_us] 7.4-10.4 Automated blood neutrophils/100 leukocytes 85 % 42-75 Automated blood lymphocytes/100 leukocytes 8 % 12-44 Blood monocytes/100 leukocytes 7 % 0-12 Automated blood eosinophils/100 leukocytes 0 % 0-10 Automated blood basophils/100 leukocytes 0 % 0-10 Blood neutrophils automated count (number/volume) 12.0 10*3 1.8-7.8 Blood lymphocytes automated count (number/volume) 1.2 10*3 1.0-4.0 Blood monocytes automated count (number/volume) 1.0 10*3 0.0-1.0 Automated eosinophil count 0.0 10*3/uL 0.0-0.3 Automated blood basophil count (count/volume) 0.0 10*3/uL 0.0-0.1 Comprehensive metabolic panel - 08/17/17 08:40 Serum or plasma sodium measurement (moles/volume) 136 mmol/L 135-145 Serum or plasma potassium measurement (moles/volume) 3.1 mmol/L 3.6-5.0 Serum or plasma chloride measurement (moles/volume) 100 mmol/L 98-107 Carbon dioxide 23 mmol/L 21-32 Serum or plasma anion gap determination (moles/volume) 13 mmol/L 5-14 Serum or plasma urea nitrogen measurement (mass/volume) 6 mg/dL 7-18 Serum or plasma creatinine measurement (mass/volume) 0.70 mg/dL 0.60-1.30 Serum or plasma urea nitrogen/creatinine mass ratio 9 NRG Serum or plasma creatinine measurement with calculation of estimated glomerular filtration rate > NRG Serum or plasma glucose measurement (mass/volume) 111 mg/dL 70-105 Serum or plasma calcium measurement (mass/volume) 8.8 mg/dL 8.5-10.1 Serum or plasma total bilirubin measurement (mass/volume) 0.7 mg/dL 0.1-1.0 Serum or plasma alkaline phosphatase measurement (enzymatic activity/volume) 89 U/L 40-136 Serum or plasma aspartate aminotransferase measurement (enzymatic activity/ volume) 15 U/L 5-34 Serum or plasma alanine aminotransferase measurement (enzymatic activity/volume ) 12 U/L 0-55 Serum or plasma protein measurement (mass/volume) 6.9 g/dL 6.4-8.2 Serum or plasma albumin measurement (mass/volume) 4.0 g/dL 3.2-4.5 Serum or plasma troponin i.cardiac measurement (mass/volume) - 08/17/17 08:40 Serum or plasma troponin i.cardiac measurement (mass/volume) < ng/ mL <0.30 Blood manual differential performed detection - 08/17/17 08:40 Blood monocytes/100 leukocytes 5 % NRG Manual blood segmented neutrophils/100 leukocytes 87 % NRG Blood band neutrophils/100 leukocytes 0 % NRG Manual blood lymphocytes/100 leukocytes 8 % NRG Manual eosinophils/100 leukocytes in nose 0 % NRG Manual blood basophils/100 leukocytes 0 % NRG Blood erythrocyte morphology finding identification NORMAL NRG LAMOTRIGINE LEVEL - 08/17/17 08:40 LAMOTRIGINE 8.8 % 2.5-15.0 Complete urinalysis with reflex to culture - 08/17/17 11:51 Urine color determination YELLOW NRG Urine clarity determination VERY CLOUDY NRG Urine pH measurement by test strip 6.5 5-9 Specific gravity of urine by test strip 1.005 1.016- 1.022 Urine protein assay by test strip, semi-quantitative NEGATIVE NEGATIVE Urine glucose detection by automated test strip NEGATIVE NEGATIVE Erythrocytes detection in urine sediment by light microscopy NEGATIVE NEGATIVE Urine ketones detection by automated test strip 1+ NEGATIVE Urine nitrite detection by test strip NEGATIVE NEGATIVE Urine total bilirubin detection by test strip NEGATIVE NEGATIVE Urine urobilinogen measurement by automated test strip (mass/volume) NORMAL NORMAL Urine leukocyte esterase detection by dipstick 3+ NEGATIVE Automated urine sediment erythrocyte count by microscopy (number/high power field) NONE NRG Automated urine sediment leukocyte count by microscopy (number/high power field ) [HPF] NRG Bacteria detection in urine sediment by light microscopy MODERATE NRG Squamous epithelial cells detection in urine sediment by light microscopy 10-25 NRG Crystals detection in urine sediment by light microscopy NONE NRG Casts detection in urine sediment by light microscopy NONE NRG Mucus detection in urine sediment by light microscopy NEGATIVE NRG Complete urinalysis with reflex to culture YES NRG Urine drug screening test - 08/17/17 11:51 Urine phencyclidine detection by screening method NEGATIVE [...] NEGATIVE NEGATIVE Urine propoxyphene detection NEGATIVE NEGATIVE Bacterial urine culture - 08/17/17 11:51 Bacterial urine culture [id number] NRG COLONY COUNT <10,000 NRG FTX;REPORTABLE PLUS, NRG FREE TEXT ENTRY 2 LACTOBACILLUS >100,000/ML NRG Methicillin resistant Staphylococcus aureus (MRSA) screening culture - 13:05 Methicillin resistant Staphylococcus aureus (MRSA) screening culture NEG NRG Complete blood count (CBC) with automated white blood cell (WBC) differential - 08/18/17 03:50 Blood leukocytes automated count (number/volume) 8.3 10*3/uL 4.3-11.0 Blood erythrocytes automated count (number/volume) 4.02 10*6/uL 4.35-5.85 Venous blood hemoglobin measurement (mass/volume) 12.4 g/dL 11.5-16.0 Blood hematocrit (volume fraction) 37 % 35-52 Automated erythrocyte mean corpuscular volume 93 [foz_us] 80-99 Automated erythrocyte mean corpuscular hemoglobin (mass per erythrocyte) 31 pg 25-34 Automated erythrocyte mean corpuscular hemoglobin concentration measurement ( mass/volume) 33 g/dL 32-36 Automated erythrocyte distribution width ratio 13.5 % 10.0-14.5 Automated blood platelet count (count/volume) 363 10*3/uL 130-400 Automated blood platelet mean volume measurement 9.1 [foz_us] 7.4-10.4 Automated blood neutrophils/100 leukocytes 62 % 42-75 Automated blood lymphocytes/100 leukocytes 25 % 12-44 Blood monocytes/100 leukocytes 11 % 0-12 Automated blood eosinophils/100 leukocytes 2 % 0-10 Automated blood basophils/100 leukocytes 1 % 0-10 Blood neutrophils automated count (number/volume) 5.1 10*3 1.8-7.8 Blood lymphocytes automated count (number/volume) 2.1 10*3 1.0-4.0 Blood monocytes automated count (number/volume) 0.9 10*3 0.0-1.0 Automated eosinophil count 0.1 10*3/uL 0.0-0.3 Automated blood basophil count (count/volume) 0.0 10*3/uL 0.0-0.1 Whole blood basic metabolic panel - 08/18/17 03:50 Serum or plasma sodium measurement (moles/volume) 141 mmol/L 135-145 Serum or plasma potassium measurement (moles/volume) 3.2 mmol/L 3.6-5.0 Serum or plasma chloride measurement (moles/volume) 107 mmol/L 98-107 Carbon dioxide 23 mmol/L 21-32 Serum or plasma anion gap determination (moles/volume) 11 mmol/L 5-14 Serum or plasma urea nitrogen measurement (mass/volume) 4 mg/dL 7-18 Serum or plasma creatinine measurement (mass/volume) 0.60 mg/dL 0.60-1.30 Serum or plasma urea nitrogen/creatinine mass ratio 7 NRG Serum or plasma creatinine measurement with calculation of estimated glomerular filtration rate > NRG Serum or plasma glucose measurement (mass/volume) 85 mg/dL 70-105 Serum or plasma calcium measurement (mass/volume) 8.6 mg/dL 8.5-10.1 Serum or plasma phosphate measurement (mass/volume) - 08/18/17 03:50 Serum or plasma phosphate measurement (mass/volume) 3.1 mg/dL 2.3-4.7 Magnesium - 08/18/17 03:50 Magnesium 1.9 mg/dL 1.8-2.4 Complete blood count (CBC) with automated white blood cell (WBC) differential - 09/11/17 07:16 Blood leukocytes automated count (number/volume) 10.7 10*3/uL 4.3-11.0 Blood erythrocytes automated count (number/volume) 4.31 10*6/uL 4.35-5.85 Venous blood hemoglobin measurement (mass/volume) 13.4 g/dL 11.5-16.0 Blood hematocrit (volume fraction) 40 % 35-52 Automated erythrocyte mean corpuscular volume 92 [foz_us] 80-99 Automated erythrocyte mean corpuscular hemoglobin (mass per erythrocyte) 31 pg 25-34 Automated erythrocyte mean corpuscular hemoglobin concentration measurement ( mass/volume) 34 g/dL 32-36 Automated erythrocyte distribution width ratio 13.2 % 10.0-14.5 Automated blood platelet count (count/volume) 314 10*3/uL 130-400 Automated blood platelet mean volume measurement 9.4 [foz_us] 7.4-10.4 Automated blood neutrophils/100 leukocytes 71 % 42-75 Automated blood lymphocytes/100 leukocytes 19 % 12-44 Blood monocytes/100 leukocytes 9 % 0-12 Automated blood eosinophils/100 leukocytes 1 % 0-10 Automated blood basophils/100 leukocytes 0 % 0-10 Blood neutrophils automated count (number/volume) 7.6 10*3 1.8-7.8 Blood lymphocytes automated count (number/volume) 2.0 10*3 1.0-4.0 Blood monocytes automated count (number/volume) 1.0 10*3 0.0-1.0 Automated eosinophil count 0.1 10*3/uL 0.0-0.3 Automated blood basophil count (count/volume) 0.0 10*3/uL 0.0-0.1 Comprehensive metabolic panel - 09/11/17 07:16 Serum or plasma sodium measurement (moles/volume) 139 mmol/L 135-145 Serum or plasma potassium measurement (moles/volume) 4.0 mmol/L 3.6-5.0 Serum or plasma chloride measurement (moles/volume) 105 mmol/L 98-107 Carbon dioxide 23 mmol/L 21-32 Serum or plasma anion gap determination (moles/volume) 11 mmol/L 5-14 Serum or plasma urea nitrogen measurement (mass/volume) 7 mg/dL 7-18 Serum or plasma creatinine measurement (mass/volume) 0.81 mg/dL 0.60-1.30 Serum or plasma urea nitrogen/creatinine mass ratio 9 NRG Serum or plasma creatinine measurement with calculation of estimated glomerular filtration rate > NRG Serum or plasma glucose measurement (mass/volume) 91 mg/dL 70-105 Serum or plasma calcium measurement (mass/volume) 9.1 mg/dL 8.5-10.1 Serum or plasma total bilirubin measurement (mass/volume) 0.7 mg/dL 0.1-1.0 Serum or plasma alkaline phosphatase measurement (enzymatic activity/volume) 85 U/L 40-136 Serum or plasma aspartate aminotransferase measurement (enzymatic activity/ volume) 45 U/L 5-34 Serum or plasma alanine aminotransferase measurement (enzymatic activity/volume ) 22 U/L 0-55 Serum or plasma protein measurement (mass/volume) 7.0 g/dL 6.4-8.2 Serum or plasma albumin measurement (mass/volume) 4.2 g/dL 3.2-4.5 Serum or plasma troponin i.cardiac measurement (mass/volume) - 09/11/17 07:16 Serum or plasma troponin i.cardiac measurement (mass/volume) < ng/ mL <0.30 Serum or plasma salicylates measurement (mass/volume) - 09/11/17 07:16 Serum or plasma salicylates measurement (mass/volume) < mg/dL 5.0-20.0 Serum or plasma acetaminophen measurement (mass/volume) - 09/11/17 07:16 Serum or plasma acetaminophen measurement (mass/volume) < ug/mL 10-30 Serum or plasma ethanol measurement (mass/volume) - 09/11/17 07:16 Serum or plasma ethanol measurement (mass/volume) < mg/dL <10 PT panel in platelet poor plasma by coagulation assay - 09/11/17 07:19 Prothrombin time (PT) in platelet poor plasma by coagulation assay 15.1 s 12.2-14.7 INR in platelet poor plasma or blood by coagulation assay 1.2 0.8-1.4 Urine drug screening test - 09/11/17 07:56 Urine phencyclidine detection by screening method NEGATIVE [...] Complete urinalysis with reflex to culture - 09/11/17 07:56 Urine color determination YELLOW NRG Urine clarity [...] urinalysis with reflex to culture NO NRG Encounters ACCT No. Visit Date/Time Discharge Status Pt. Type Provider Facility Loc./Unit Complaint [id number] 08/17/2017 11:50:00 08/18/2017 16:30:00 DIS Inpatient DELVIN RHODES MD [facility] [address] ICU ACUTE PSYCHOSIS, SEIZURES AND BIPOLAR. [id number] 04/14/2017 14:45:00 04/14/2017 23:59:59 CLS Preadmit OTHER, UNLISTED [facility] [address] RAD SCREENING [id number] 01/31/2017 10:48:00 01/31/2017 23:59:59 CLS Preadmit OTHER, UNLISTED [facility] [address] RAD SCREENING Z12.31 [id number] 12/24/2016 03:40:00 12/24/2016 15:40:00 DIS Inpatient LYNN DOELIUI [facility] [address] ICU UNRESPONSIVE [id number] 08/30/2016 17:27:00 08/30/2016 23:59:59 CLS Emergency JAYNE DO, LANDON K [facility] [address] ER BACK PAIN, SHINGLES [id number] 07/12/2016 20:41:00 07/18/2016 17:05:00 DIS Inpatient KEO CELESTIN, LIZ Hill [facility] [address] 4TH BILATERAL PE,AMS, PNEUMONIA [id number] 02/28/2016 14:02:00 02/28/2016 23:59:59 CLS Outpatient MASSIMO BOYD [facility] [address] RAD G50.0 [id number] 02/10/2015 18:38:00 02/10/2015 23:59:59 CLS Emergency HUMAIRA HARVEY [employer] [facility] [address] ER DENTAL PAIN [id number] 01/06/2015 14:23:00 01/06/2015 16:28:00 DIS Emergency HUMAIRA HARVEY [employer] [facility] [address] ER LEFT FOOT/ANKLE/LEG PAIN [id number] 09/30/2014 08:09:00 10/05/2014 12:05:00 DIS Inpatient ANG MELO MD [facility] [address] SURGICAL SWB-Pneumonia [id number] 09/27/2014 14:16:00 09/30/2014 07:58:00 DIS Inpatient ANG MELO MD [facility] [address] SURGICAL PNEUMONIA RUL [id number] 06/09/2014 12:40:00 06/09/2014 19:38:00 DIS Emergency KAMRON SY MD [facility] [address] ER BLOOD IN STOOL [id number] 09/11/2017 07:23:00 Document Registration [id number] 08/20/2016 10:57:00 Document Registration [id number] 07/02/2014 20:44:00 Document Registration
[2017-09-11] MEDS ORDERED: LACTATED RINGERS 1,000 ML IV ONE (09:37)
[2017-09-11] MEDS ORDERED: NS 250 ML (IVPB) BAG IV ONE (09:45)
[2017-09-11] MEDS ORDERED: IOHEXOL 350 MG/ML 100 ML (OMNIPAQUE 350) VIAL IV ONE (09:45)
--- NOTE | 2017-09-11 11:12 | Diagnostic Imaging Report ---
PROCEDURE: CT abdomen and pelvis with contrast. TECHNIQUE: Multiple contiguous axial images were obtained through the abdomen and pelvis after administration of intravenous contrast. INDICATION: Altered mental status. Hypothermia. Found down. Abdominal pain. COMPARISON: CT abdomen and pelvis with IV contrast 06/09/2014. FINDINGS: Mild atelectasis and/or scarring in the lung bases. Small esophageal hiatal hernia. The liver, gallbladder, pancreas, spleen, adrenals, kidneys, collecting systems and appendix are negative. Reproductive structures are grossly unremarkable. The bladder is decompressed by Miranda catheter. Rectal probe. Mild to moderate atherosclerotic calcifications including a normal caliber abdominal aorta. No free intraperitoneal air or fluid. No lymphadenopathy. No evidence of bowel obstruction or inflammation. Chronic left rib fractures. Moderate spondylotic changes in the lumbar spine. No acute osseous findings. IMPRESSION: No acute CT findings in the abdomen or pelvis. Chronic and incidental findings as above. Dictated by: Dictated on workstation # [id number]
--- NOTE | 2017-09-11 11:46 | Consultation-Hospitalist ---
HPI History of Present Illness: HPI/Chief Complaint Chief complaint: Altered mental status and hypothermia of 93 History of present illness: This is a 52-year-old white female who I was consulted by Dr. Davies for hypothermia and altered mental status. Apparently patient was found down for unknown amount of time and found to have hypothermia of 93 is currently on a bearhug her and sleeping soundly area it was evaluated that she was on multiple antipsychotics medications that could cause hypothermia so she will remain in the ICU closely monitored and remained under the bear hugger until on a temperature returns back to normal. Source: RN/MD Exam Limitations: clinical condition Date Seen 09/11/17 Attending Physician Juanpablo Davies MD [facility] [place] Referring Physician Date of Admission September 11, 2017 at 08:02 Home Medications & Allergies Home Medications Reviewed patient Home Medication Reconciliation performed by pharmacy medication reconciliations cinetechnician and/or nursing. Patients Allergies have been reviewed. Allergies Allergies Coded Allergies No Known Drug Allergies (Unverified06/09/14) Past Wiwynlf-Fwkuaz-Yeoaur Hx Past Med/Social Hx: Reviewed Nursing Past Med/Soc Hx, Reviewed and Corrections made Patient Social History Marrital Status: single Employed/Student: unemployed Alcohol Use: Denies Use Recreational Drug Use: Yes Drug of Choice: MARIJUANA, opioids Smoking Status: Current Everyday Smoker Type Used: Cigarettes Recent Foreign Travel: No Contact w/other who traveled: No Recent Hopitalizations: No Recent Infectious Disease Expo: No Immunizations Up To Date Tetanus Booster (TDap): Less than 5yrs Seasonal Allergies Seasonal Allergies: No Past Medical History Surgeries: Section, Orthopedic, Tubal Ligation Currently Using CPAP: No Currently Using BIPAP: No Cardiac: High Cholesterol Neurological: Concussion, Seizure Disorder, Traumatic Brain Injury Reproductive: No Female Reproductive Disorders: Denies Menopausal Musculoskeletal: Chronic Back Pain Psychosocial: Anxiety, PTSD, Bipolar, Personality Disorder, Schizophrenia, Depression History of Blood Disorders: No Family History Alcoholism 19 FATHER Arthritis 19 MOTHER FH: bipolar disorder No Pertinent Family Hx, Psychiatric Problems Review of Systems ROS-Unable to Obtain: Unable to ascertain due to altered mental status Constitutional: no symptoms reported Physical Exam Physical Exam Vital Signs Vital Signs - First Documented 09/11/17 10:30 O2 Flow Rate 2.00 Capillary Refill : Greater Than 3 Seconds General Appearance: No Apparent Distress, WD/WN, Chronically ill, Obese Neck: Normal Inspection Respiratory: Lungs Clear, Normal Breath Sounds Cardiovascular: Regular Rate, Rhythm Neurologic/Psychiatric: Disoriented Skin: Normal Color, Warm/Dry Lymphatic: No Adenopathy Results Results/Procedures Labs Laboratory Tests 09/11/17 07:16 Patient resulted labs reviewed. Assessment/Plan Assessment and Plan Assess & Plan/Chief Complaint Assessment: Altered mental status well taking excess antipsychotic medications Hypothermia Plan: Monitor closely in the ICU Hypothermia with hever guerin Diagnosis/Problems Diagnosis/Problems (1) Altered mental state Status: Acute Qualifiers: Altered mental status type: somnolence Qualified Codes: R40.0 - Somnolence (2) HYPOTHERMIA Status: Acute (3) Schizo affective schizophrenia Status: Chronic TERESA LYNN DO September 11, 2017 11:45
[2017-09-11] MEDS ORDERED: NS IV 1000 ML 1,000 ML ONE (11:51)
[2017-09-11] MEDS: NS IV 1000 ML 1,000 ML IV SCH ×2 (12:27→21:36)
[2017-09-11] MEDS ORDERED: CATHETER FLUSH 10 ML SYR IV PRN (12:30)
[2017-09-11] MEDS: clonazePAM 1 MG (KlonoPIN) TAB PO PRN (14:59)
[2017-09-11] MEDS: NICOTINE 21 MG (NICODERM) PATCH TD SCH (15:25)
--- NOTE | 2017-09-11 17:34 | History & Physicial ---
History of Present Illness History of Present Illness Reason for visit/HPI found down on her driveway, hypothermic, EMS called by her neighbor, evaluated in the emergency room. Date of Admission September 11, 2017 at 08:02 Date Seen by Provider: September 11, 2017 Time Seen by Provider: 08:55 I consulted on this patient on 09/11/17 17:29 Attending Physician Michelle Bello MD Admitting Physician [facility] Consult Jeri Smith D.O Allergies and Home Medications Allergies Coded Allergies: No Known Drug Allergies (Unverified , 06/09/14) Home Medications Amitriptyline HCl 75 Mg Tablet, 150 MG PO HS, (Reported) TAKES 2 (75 MG) TABLETS Apixaban 2.5 Mg Tablet, 2.5 MG PO BID, (Reported) Atorvastatin Calcium 40 Mg Tablet, 20 MG PO HS, (Reported) TAKES 1/2 (40MG) TABLET Clonazepam 1 Mg Tablet, 1 MG PO DAILY PRN for ANXIETY, (Reported) Gabapentin 600 Mg Tablet, 1,200 MG PO TID, (Reported) TAKES 2 (600 MG) TABLETS Lamotrigine 200 Mg Tablet, 200 MG PO BID, (Reported) Ondansetron HCl 4 Mg Tablet, 4 MG PO TID PRN for NAUSEA/VOMITING-1ST LINE, ( Reported) LAST FILLED #90 03-21-17 Patient Home Medication List Home Medication List Reviewed: Yes Past Lfwweef-Gmdsyu-Eybdyx Hx Patient Social History Alcohol Use: Denies Use Recreational Drug Use: Yes Drug of Choice: MARIJUANA, opioids Smoking Status: Current Everyday Smoker Type Used: Cigarettes Physical Abuse Screen: No Sexual Abuse: No Recent Foreign Travel: No Contact w/other who traveled: No Recent Hopitalizations: No Recent Infectious Disease Expo: No Immunizations Up To Date Tetanus Booster (TDap): Less than 5yrs Seasonal Allergies Seasonal Allergies: No Surgeries Yes (FACE) Section, Orthopedic, Tubal Ligation Respiratory Yes (BILATERAL P.E. 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 Genitourinary No Gastrointestinal No Musculoskeletal Yes (FACIAL PAIN) Chronic Back Pain Endocrine History of Endocrine Disorders: No HEENT History of HEENT Disorders: No Cancer No Psychosocial History of Psychiatric Problem: Yes Behavioral Health Disorders: Anxiety, PTSD, Bipolar, Personality Disorder, Schizophrenia, Depression Integumentary History of Skin or Integumenta: No Blood Transfusions History of Blood Disorders: No Family Medical History Significant Family History: No Pertinent Family Hx Family Hx: Alcoholism 19 FATHER Arthritis 19 MOTHER FH: bipolar disorder Constitutional: see HPI EENTM: see HPI Respiratory: see HPI Cardiovascular: see HPI Gastrointestinal: see HPI Genitourinary: see HPI Musculoskeletal: see HPI Skin: see HPI Psychiatric/Neurological: Anxiety, Depressed, Emotional Problems Physical Exam Vital Signs Vital Signs - First Documented 09/11/17 10:30 O2 Flow Rate 2.00 Capillary Refill : Greater Than 3 Seconds General Appearance: Other HEENT: Normal ENT Inspection Neck: Normal Inspection Respiratory: Lungs Clear Cardiovascular: Regular Rate, Rhythm Gastrointestinal: Non Tender, Soft Rectal: Deferred Back: Other Extremity: Other Neurologic/Psychiatric: Depressed Affect Skin: Cool Comments the patient very drowsy but arousable. Follows commands with some difficulty. Able to move all 4 extremities mainly to command. Multiple abrasions involving her back and upper extremities. Pfannenstiel scar. Assessment/Plan Assessment and Plan lady found hypothermic. CT of the brain, chest abdomen and pelvis negative. Very few abrasions. Will be admitted to the ICU and warming measures would be continued. Medical service would be consulted in view of drug induced hypothermia Admission Diagnosis Admission Status: Observation Clinical Quality Measures DVT/VTE Risk/Contraindication: Risk Factor Score Per Nursin RFS Level Per Nursing on Admit: 4+=Very High MICHELLE BELLO MD September 11, 2017 17:34
[2017-09-11] MEDS ORDERED: PANTOPRAZOLE 40 MG (PROTONIX) TAB PO ONE (21:30)
[2017-09-11] MEDS ORDERED: ANTACID SUSP 30 ML UDC (MYLANTA) PO PRN (21:30)
[2017-09-11] MEDS: AMITRIPTYLINE 150 MG (ELAVIL) TABLET PO SCH (21:31)
[2017-09-11] MEDS: GABAPENTIN 600 MG (NEURONTIN) TAB PO SCH (21:32)
[2017-09-12] VITALS (10 sets, daily range): BP systolic 105–149; BP diastolic 61–88
[2017-09-12 04:04] LABS: BASOPHILS % (AUTO) 0 % (0-10); EOSINOPHILS # (AUTO) 0.2 10^3/uL (0.0-0.3); EOSINOPHILS % (AUTO) 2 % (0-10); HEMATOCRIT 36 % (35-52); LYMPHOCYTES # (AUTO) 2.4 X 10^3 (1.0-4.0); LYMPHOCYTES % (AUTO) 29 % (12-44); MEAN CORPUSCULAR HEMOGLOBIN 31 PG (25-34); MEAN CORPUSCULAR HGB CONC 34 G/DL (32-36); MEAN CORPUSCULAR VOLUME 94 FL (80-99); MONOCYTES # (AUTO) 0.8 X 10^3 (0.0-1.0); MONOCYTES % (AUTO) 10 % (0-12); NEUTROPHILS # (AUTO) 4.7 X 10^3 (1.8-7.8); NEUTROPHILS % (AUTO) 58 % (42-75); PLATELET COUNT 305 10^3/uL (130-400); RED BLOOD COUNT 3.82 10^6/uL (4.35-5.85); RED CELL DISTRIBUTION WIDTH 13.2 % (10.0-14.5); WHITE BLOOD COUNT 8.1 10^3/uL (4.3-11.0)
[2017-09-12 04:28] LABS: ALANINE AMINOTRANSFERASE 18 U/L (0-55); ALBUMIN 3.3 GM/DL (3.2-4.5); ALKALINE PHOSPHATASE 66 U/L (40-136); BILIRUBIN,TOTAL 0.5 MG/DL (0.1-1.0); BUN/CREATININE RATIO 7; CALCIUM 8.1 MG/DL (8.5-10.1); CARBON DIOXIDE 23 MMOL/L (21-32); CHLORIDE 110 MMOL/L (98-107); CREATININE SERUM 0.71 MG/DL (0.60-1.30); GFR ESTIMATED > 60; GLUCOSE 92 MG/DL (70-105); MAGNESIUM 2.2 MG/DL (1.8-2.4); POTASSIUM 3.3 MMOL/L (3.6-5.0); SODIUM 142 MMOL/L (135-145); TOTAL PROTEIN 5.4 GM/DL (6.4-8.2)
[2017-09-12] MEDS ORDERED: MAGNESIUM 1 GM/100 ML IVPB 100 ML IV SCH (06:00)
[2017-09-12] MEDS ORDERED: POTASSIUM CL 10MEQ/50ML IVPB 50 ML IV SCH (06:00)
[2017-09-12] MEDS ORDERED: KCL 20 MEQ TAB (K-DUR) PO SCH ×3 (06:00→11:00)
[2017-09-12] MEDS: clonazePAM 1 MG (KlonoPIN) TAB PO PRN (08:08)
[2017-09-12] MEDS: GABAPENTIN 600 MG (NEURONTIN) TAB PO SCH ×3 (08:08→19:58)
[2017-09-12] MEDS: PANTOPRAZOLE 40 MG (PROTONIX) TAB PO SCH (08:08)
[2017-09-12] MEDS: NICOTINE 21 MG (NICODERM) PATCH TD SCH (08:09)
[2017-09-12] MEDS: NICOTINE PATCH REMOVAL TP SCH (08:10)
--- NOTE | 2017-09-12 08:46 | Progress Note-Standard ---
Standard Progress Note Progress Notes/Assess & Plan Date Seen by Provider: September 12, 2017 Time Seen by Provider: 07:15 Progress/Assessment & Plan No surgical concerns. Awake and conversant. Reasonable to transfer care to primary. informed and she'll kindly assume care Final Diagnosis Hypothermia, resolved. MICHELLE BELLO MD September 12, 2017 8:46 am
[2017-09-12] MEDS: RT-ALBUTEROL/IPRATROPIUM 3 ML (DUONEB) VIAL INH SCH ×4 (10:58→23:34)
[2017-09-12] MEDS ORDERED: ONDANSETRON 4 MG (ZOFRAN) ORAL DISSOLVE TAB PO PRN (11:15)
--- NOTE | 2017-09-12 14:05 | Physical Therapy Evaluation ---
PT Evaluation-General Medical Diagnosis Admission Date September 11, 2017 at 08:02 Medical Diagnosis: weakness Onset Date: September 11, 2017 Therapy Diagnosis Therapy Diagnosis: impaired mobility, strength, endurance, balance Height/Weight Height (Feet): 5 Height (Inches): 6.00 Weight (Pounds): 187 Weight (Ounces): 0.0 Precautions Precautions/Isolations: Seizure, Fall Prevention, Standard Precautions Referral Physician: Jeri Smith DO Reason for Referral: Evaluation/Treatment Medical History Pertinent Medical History: Smoking Additional Medical History high cholesterol, trigeminal neuralgia, concussion, seizure disorder, TBI, anxiety, PTSD, bipolar, personality disorder, schizophrenia, depression, surg ( face, , orthopedic, tubal ligation) Reviewed History: Yes Social History Home: Single Level Current Living Status: Alone Entry Into Home: Stairs With Railing PT Steps Into Home: 4 Prior/Core FIM Prior Level of Function Functional [place] Measure 0=Not Assessed/NA 4=Minimal Assistance 1=Total Assistance 5=Supervision or Setup 2=Maximal Assistance 6=Modified [place] 3=Moderate Assistance 7=Complete [place] Bed Mobility: 7 Transfers (B,C,W/C) (FIM): 7 Gait: 7 PT Evaluation-Current Subjective Patient in bed pre tx, agrees to PT, states she has pain in face from trigeminal neuralgia but does not specify pain. Pt/Family Goals none stated Objective Patient Orientation: Person, Confused, Situation ROM/Strength ROM Lower Extremities WNL Strength Lower Extremities right lower extremity (hip flexion 3+/5, knee flexion 4/5, knee extension 5/5, dorsiflexion 5/5), left lower extremity (hip flexion 3+/5, knee flexion 4/5, knee extension 5/5, dorsiflexion 5/5) Neuromuscular (Tone, Coordination, Reflexes) NT Sensory Vision: Functional Hearing: Functional Sensation Right Lower Extremit: Intact Sensation Left Lower Extremity: Intact Transfers Functional [place] Measure 0=Not Assessed/NA 4=Minimal Assistance 1=Total Assistance 5=Supervision or Setup 2=Maximal Assistance 6=Modified [place] 3=Moderate Assistance 7=Complete [place] Transfers (B, C, W/C) (FIM): 4 Scootin Rollin Supine to/from Sit: 5 Sit to/from Stand: 4 bed t/f WC(FIM only if WC use): 4 CGA for transfers Gait Gait (FIM): 4 Distance: 200' Gait Level of Assist: 4 Gait Persons Needed: 1 Gait Assistive Device: None Comments/Gait Description Patient does distract easily and can get off balance because of that. Balance Sitting Static: Normal Sitting Dynamic: Normal Standing Static: Fair Standing Dynamic: Fair Treatment supine exercises x15 (AP, SLR) Assessment/Needs Patient has impaired mobility, strength, endurance, balance. She gets distracted easily and can lose balance because of that. Rehab Potential: Fair PT Short Term Goals Short Term Goals Time Frame: September 19, 2017 Transfers (B,C,W/C) (FIM): 5 Gait (FIM): 5 Gait Distance Comment: 300' Gait Level of Assist: 5 Gait Assistive Device: None PT Plan Problem List Problem List: Activity Tolerance, Functional Strength, Safety, Balance, Gait, Transfer, Bed Mobility, ROM Treatment/Plan Treatment Plan: Continue Plan of Care Treatment Plan: Bed Mobility, Education, Functional Activity [place], Functional Strength, Gait, Safety, Therapeutic Exercise, Transfers Treatment Duration: September 19, 2017 Frequency: 6 times per week Estimated Hrs Per Day: .25 hour per day (15-30') Patient and/or Family Agrees t: Yes Safety Risks/Education Patient Education: Gait Training, Transfer Techniques, Correct Positioning, Safety Issues Teaching Recipient: Patient Teaching Methods: Demonstration, Discussion Response to Teaching: Reinforcement Needed Discharge Recommendations Plan Patient will perform bed mobility and transfer training, balance and endurance training, functional strengthening, stair training, and education, to improve functional mobility and independence at home. Therapy D/C Recommendations: Home w/ Family Support Time/GCodes Time In: 1330 Time Out: 1350 Total Billed Treatment Time: 20 Total Billed Treatment 1 visit [facility] 20' ALEXANDRU RODRIGUEZ PT September 12, 2017 14:05
[2017-09-12] MEDS: APIXABAN 2.5 MG (ELIQUIS) TABLET PO SCH (19:58)
[2017-09-12] MEDS: AMITRIPTYLINE 150 MG (ELAVIL) TABLET PO SCH (19:58)
--- NOTE | 2017-09-12 22:49 | Progress Note-Hospitalist ---
Subjective HPI/CC On Admission Date Seen by Provider: September 12, 2017 Time Seen by Provider: 10:00 Chief complaint: Altered mental status and hypothermia of 93 History of present illness: This is a 52-year-old white female who I was consulted by Dr. Davies for hypothermia and altered mental status. Apparently patient was found down for unknown amount of time and found to have hypothermia of 93 is currently on a bearhug her and sleeping soundly area it was evaluated that she was on multiple antipsychotics medications that could cause hypothermia so she will remain in the ICU closely monitored and remained under the bear hugger until on a temperature returns back to normal. Subjective/Events-last exam Dr. 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 Does not recall what happened which caused the critical illness and hypothermia Review of Systems General: Fatigue, Malaise Pulmonary: Cough Objective Exam Vital Signs Vital Signs Date Time Temp Pulse Resp B/P (MAP) Pulse Ox O2 Delivery O2 Flow Rate FiO2 09/12/17 20:00 Room Air 09/12/17 18:54 96 09/12/17 15:35 97.4 74 20 149/88 (108) 09/11/17 12:00 2.00 Capillary Refill : Greater Than 3 Seconds General Appearance: No Apparent Distress, WD/WN, Chronically ill Respiratory: Crackles, Wheezing Cardiovascular: Regular Rate, Rhythm, No Edema Neurologic/Psychiatric: Alert, Oriented x3, No Motor/Sensory Deficits, Depressed Affect Results/Procedures Lab Laboratory Tests 09/12/17 03:36 Patient resulted labs reviewed. Assessment/Plan Assessment and Plan Assess & Plan/Chief Complaint Assessment: Altered mental status due to taking excess antipsychotic medications Hypothermia Plan: Tx to 4th Home meds Nebs O2 Diagnosis/Problems Diagnosis/Problems (1) Altered mental state Status: Resolved Qualifiers: Altered mental status type: somnolence Qualified Codes: R40.0 - Somnolence (2) HYPOTHERMIA Status: Resolved (3) Schizo affective schizophrenia Status: Chronic (4) Rales Status: Acute Clinical Quality Measures DVT/VTE Risk/Contraindication: Risk Factor Score Per Nursin RFS Level Per Nursing on Admit: 4+=Very High TERESA LYNN DO September 12, 2017 22:49
[2017-09-13 00:23] VITALS: BP 117/63
[2017-09-13] MEDS: RT-ALBUTEROL/IPRATROPIUM 3 ML (DUONEB) VIAL INH SCH ×6 (02:39→22:40)
[2017-09-13 04:34] VITALS: BP 119/70
[2017-09-13] MEDS: PANTOPRAZOLE 40 MG (PROTONIX) TAB PO SCH (04:59)
[2017-09-13 06:31] LABS: BASOPHILS % (AUTO) 0 % (0-10); EOSINOPHILS # (AUTO) 0.2 10^3/uL (0.0-0.3); EOSINOPHILS % (AUTO) 3 % (0-10); HEMATOCRIT 37 % (35-52); HEMOGLOBIN 12.1 G/DL (11.5-16.0); LYMPHOCYTES # (AUTO) 2.4 X 10^3 (1.0-4.0); LYMPHOCYTES % (AUTO) 35 % (12-44); MEAN CORPUSCULAR HEMOGLOBIN 31 PG (25-34); MEAN CORPUSCULAR HGB CONC 33 G/DL (32-36); MEAN CORPUSCULAR VOLUME 95 FL (80-99); MEAN PLATELET VOLUME 9.6 FL (7.4-10.4); MONOCYTES # (AUTO) 0.8 X 10^3 (0.0-1.0); MONOCYTES % (AUTO) 12 % (0-12); NEUTROPHILS # (AUTO) 3.5 X 10^3 (1.8-7.8); NEUTROPHILS % (AUTO) 50 % (42-75); PLATELET COUNT 322 10^3/uL (130-400); RED CELL DISTRIBUTION WIDTH 13.9 % (10.0-14.5); WHITE BLOOD COUNT 6.9 10^3/uL (4.3-11.0)
[2017-09-13 06:48] LABS: ALANINE AMINOTRANSFERASE 18 U/L (0-55); ALBUMIN 3.5 GM/DL (3.2-4.5); ALKALINE PHOSPHATASE 65 U/L (40-136); BILIRUBIN,TOTAL 0.3 MG/DL (0.1-1.0); BUN/CREATININE RATIO 6; CALCIUM 8.5 MG/DL (8.5-10.1); CARBON DIOXIDE 26 MMOL/L (21-32); CHLORIDE 109 MMOL/L (98-107); CREATININE SERUM 0.68 MG/DL (0.60-1.30); GFR ESTIMATED > 60; GLUCOSE 93 MG/DL (70-105); POTASSIUM 3.8 MMOL/L (3.6-5.0); SODIUM 142 MMOL/L (135-145); TOTAL PROTEIN 5.8 GM/DL (6.4-8.2)
[2017-09-13 08:00] VITALS: BP 140/59
[2017-09-13] MEDS: APIXABAN 2.5 MG (ELIQUIS) TABLET PO SCH ×2 (10:53→19:40)
[2017-09-13] MEDS: NICOTINE PATCH REMOVAL TP SCH (10:53)
[2017-09-13] MEDS: GABAPENTIN 600 MG (NEURONTIN) TAB PO SCH ×3 (10:53→19:41)
--- NOTE | 2017-09-13 11:00 | Progress Note-Hospitalist ---
Subjective HPI/CC On Admission Date Seen by Provider: September 13, 2017 Time Seen by Provider: 10:52 Chief complaint: Altered mental status and hypothermia of 93 History of present illness: This is a 52-year-old white female who I was consulted by Dr. Davies for hypothermia and altered mental status. Apparently patient was found down for unknown amount of time and found to have hypothermia of 93 is currently on a bearhug her and sleeping soundly area it was evaluated that she was on multiple antipsychotics medications that could cause hypothermia so she will remain in the ICU closely monitored and remained under the bear hugger until on a temperature returns back to normal. Subjective/Events-last exam Upon arrival of found the patient to be unresponsive. The aide states that she had been doing well this morning had eaten breakfast but when the aide had come in some 20 minutes ago she was unarousable and snoring. I noted the patient to be diaphoretic with sonorous respirations with her head bent forward due to her pillow she was having some intermittent obstruction with removal of the pillow this resolved. No motor activity was noted. Her pupils were 3 mm and did react. Her left eye was deviated to the left upon manually opening her eyelids. There was no evidence for nystagmus nor was there correction of the deviation upon manual opening up her lipids. Consensual reflex appeared to be intact but difficult to tell due to the baseline constricted status at around 3 mm. The patient then abruptly woke up with opened her eyes pupils were back to 6 mm reactive with no evidence for nystagmus or gaze deviation. Currently she denied headache. She's a little bit slow to respond but at baseline does have history of traumatic brain injury and reported a long history of seizure disorder. She was able to move all extremities. She is extremely poor historian and could not answer questions well but started her history from 1996. It was very difficult to keep her on track and an answer specific questions. The patient had not received her morning meds yet at nearly 11 o' clock due to apparent nursing shortage with having to call her current nurse in on quick notice. Objective Exam Vital Signs Vital Signs Date Time Temp Pulse Resp B/P (MAP) Pulse Ox O2 Delivery O2 Flow Rate FiO2 09/13/17 08:00 97.0 72 18 140/59 (86) 97 Room Air 09/11/17 12:00 2.00 Capillary Refill : Greater Than 3 Seconds General Appearance: No Apparent Distress Neck: Full Range of Motion, Normal Inspection Respiratory: No Accessory Muscle Use, Other (Mild expiratory wheezing noted bilaterally no rales or rhonchi appreciated.) Cardiovascular: Regular Rate, Rhythm, No Edema, No Gallop, No JVD, No Murmur, Normal Peripheral Pulses Extremity: No Pedal Edema Neurologic/Psychiatric: Other (Mild confusion speech a little slow and deliberate moving all extremities reporting some generalized pain which she states is chronic no sensory deficits reported.) Results/Procedures Lab Laboratory Tests 09/13/17 06:07 Patient resulted labs reviewed. Assessment/Plan Assessment and Plan Assess & Plan/Chief Complaint 1. Altered mental status with hypothermia the latter resolved patient having been found in the yard in the rain with admission temperature of 93 strongly suspect uncontrolled seizure disorder. Also suspect the patient had a seizure this morning however was late in getting her gabapentin and Lamictal. We'll continue to monitor today and we'll need to discuss how active her daughter will be in patient surveillance before determining at discharge. We'll need neurologic follow-up on discharge. 2. History of traumatic brain injury likely cause of number 1. 3. Reported history of schizoaffective disorder and posttraumatic stress disorder. Clinical Quality Measures DVT/VTE Risk/Contraindication: Risk Factor Score Per Nursin RFS Level Per Nursing on Admit: 4+=Very High BEVERLY YOUNG MD September 13, 2017 10:59
[2017-09-13] MEDS: NICOTINE 21 MG (NICODERM) PATCH TD SCH (11:02)
[2017-09-13] MEDS: clonazePAM 1 MG (KlonoPIN) TAB PO PRN ×2 (11:14→18:44)
[2017-09-13 12:00] VITALS: BP 117/70
--- NOTE | 2017-09-13 14:06 | Physical Therapy Daily Note ---
PT Daily Note-Current Subjective Pt standing in room, very animated, brushing her hair while standing. At times, throwing herself off balance. Agreeable to walk then became mildly agitated telling this therapist "I have no affiliation with this hospital. You can't keep me here. I'm leaving!" Mental Status Patient Orientation: Person, Confused Transfers Functional [place] Measure 0=Not Assessed/NA 4=Minimal Assistance 1=Total Assistance 5=Supervision or Setup 2=Maximal Assistance 6=Modified [place] 3=Moderate Assistance 7=Complete IndependenceIRFPAI Quality Coding Scale 6 Independent with activity with or without an assistive device 5 Patient requires set up or clean up by helper. Patient completes activity by themselves 4 Supervision or touching assist (CGA). [place] provide cues , steadying assist 3 The helper provides less than half the effort to complete the activity 2 The helper provides more than half the effort to complete the activity 1 Dependent. The helper does all the effort to complete an activity 7 Patient refused to complete or attempt activity 9 The patient did not perform the activity before the current illness or injury 88 Not attempted due to Medical conditions or safety concerns Sit to/from Stand: 5 Weight Bearing Right Lower Extremity: Right Full Weight Bearing Left Lower Extremity: Left Full Weight Bearing Gait Training Gait (FIM): 4 Distance (FIM): 3=150 ft Distance: 150 Gait Level of Assist: 4 Gait Persons Needed: 1 Gait Assistive Device: None Pt unsteady, weaving and scissoring at times with gait but no domenica LOB. Pt impulsive when approaching bed but Pt states, "This is what I do. This is my normal". Treatments Gait training. In room with NA present after treatment. Assessment Current Status: Fair Progress Pt impulsive and unsteady with gait but states she is at PLOF. Pt easily agitated and resistive to any cueing from therapist. Difficult to keep attention to task. PT Short Term Goals Short Term Goals Time Frame: September 19, 2017 Transfers (B,C,W/C) (FIM): 5 Gait (FIM): 5 Gait Distance Comment: 300' Gait Level of Assist: 5 Gait Assistive Device: None PT Plan Problem List Problem List: Activity Tolerance, Safety, Balance, Gait, Transfer Treatment/Plan Treatment Plan: Continue Plan of Care Treatment Plan: Bed Mobility, Education, Functional Activity [place], Functional Strength, Gait, Safety, Therapeutic Exercise, Transfers Treatment Duration: September 19, 2017 Frequency: 6 times per week Estimated Hrs Per Day: .25 hour per day (15-30') Patient and/or Family Agrees t: Yes Time/GCodes Time In: 1226 Time Out: 1250 Total Billed Treatment Time: 24 Total Billed Treatment 1, FA x 24' G Codes Necessary: PAIGE Costello DPJada September 13, 2017 14:06
[2017-09-13 16:00] VITALS: BP 103/57
[2017-09-13 19:27] VITALS: BP 134/70
[2017-09-13] MEDS ORDERED: AMITRIPTYLINE 50 MG (ELAVIL) TAB PO SCH (21:00)
[2017-09-14] VITALS: BP 139/81
[2017-09-14] MEDS: RT-ALBUTEROL/IPRATROPIUM 3 ML (DUONEB) VIAL INH SCH ×6 (02:32→22:16)
[2017-09-14] MEDS: clonazePAM 1 MG (KlonoPIN) TAB PO PRN (04:43)
[2017-09-14] MEDS: PANTOPRAZOLE 40 MG (PROTONIX) TAB PO SCH (04:44)
[2017-09-14] MEDS: GABAPENTIN 600 MG (NEURONTIN) TAB PO SCH ×3 (06:21→20:14)
[2017-09-14] MEDS: APIXABAN 2.5 MG (ELIQUIS) TABLET PO SCH ×2 (07:52→20:14)
[2017-09-14] MEDS: NICOTINE 21 MG (NICODERM) PATCH TD SCH (07:52)
[2017-09-14] MEDS: NICOTINE PATCH REMOVAL TP SCH (07:53)
[2017-09-14 08:00] VITALS: BP 138/80
--- NOTE | 2017-09-14 08:50 | Progress Note-Hospitalist ---
Subjective HPI/CC On Admission Date Seen by Provider: September 14, 2017 Time Seen by Provider: 08:42 Chief complaint: Altered mental status and hypothermia of 93 History of present illness: This is a 52-year-old white female who I was consulted by Dr. Davies for hypothermia and altered mental status. Apparently patient was found down for unknown amount of time and found to have hypothermia of 93 is currently on a bearhug her and sleeping soundly area it was evaluated that she was on multiple antipsychotics medications that could cause hypothermia so she will remain in the ICU closely monitored and remained under the bear hugger until on a temperature returns back to normal. Subjective/Events-last exam No further seizure activity has been noted by staff since I found the patient in a postictal state yesterday morning. Patient reports that she aches everywhere is a vague an extremely poor historian I suspect long-standing due to her traumatic brain injury. Staff noted loose cough last night with continued wheezing despite breathing treatments. They had a hard time keeping oxygen on her and noted periods of desaturation to the mid 80 range off oxygen last night. She was eating breakfast this morning without choking or coughing. Objective Exam Vital Signs Vital Signs Date Time Temp Pulse Resp B/P (MAP) Pulse Ox O2 Delivery O2 Flow Rate FiO2 09/14/17 08:00 97.4 104 20 138/80 (99) 93 Room Air 09/14/17 02:32 3.00 Capillary Refill : Greater Than 3 Seconds General Appearance: No Apparent Distress, Obese Respiratory: No Accessory Muscle Use, No Respiratory Distress, Other (Mild expiratory wheezing throughout by basilar rhonchi noted loose sounding nonproductive cough intermittently) Cardiovascular: Regular Rate, Rhythm, No Edema, No Gallop, No JVD, No Murmur, Normal Peripheral Pulses Extremity: Normal Range of Motion, No Pedal Edema Results/Procedures Lab Patient resulted labs reviewed. Assessment/Plan Assessment and Plan Assess & Plan/Chief Complaint 1. Altered mental status with hypothermia the latter resolved patient having been found in the yard in the rain with admission temperature of 93 strongly suspect uncontrolled seizure disorder. Also suspect the patient had a seizure this morning. She was late in getting her gabapentin and Lamictal. We'll continue to monitor today and we'll need to discuss how active her daughter will be in patient surveillance before determining at discharge. We'll need neurologic follow-up on discharge. 2. History of traumatic brain injury likely cause of number 1. Secondary to this the patient is not able to care for herself at home without direct supervision. She is not likely to submit to correction placement. At this time she is unable to make rational decision with medication noncompliance being a likely major factor in her seizure disorder. She is not safe to go home and will likely need a court ordered placement. 3. Reported history of schizoaffective disorder and posttraumatic stress disorder. 4. Likely COPD with reactive airways we'll repeat chest x-ray as patient was at risk for aspiration. We will add Advair twice a day via [facility] to her bronchodilator regimen. Clinical Quality Measures DVT/VTE Risk/Contraindication: Risk Factor Score Per Nursin RFS Level Per Nursing on Admit: 4+=Very High BEVERLY YOUNG MD September 14, 2017 08:50
[2017-09-14] MEDS: RT-ADVAIR HFA 115/21 MCG PER PUFF IH SCH ×2 (11:07→22:16)
--- NOTE | 2017-09-14 11:13 | Diagnostic Imaging Report ---
INDICATION: Wheezing, hypoxia. TECHNIQUE: Two view chest 10:43 AM. CORRELATION STUDY: 09/11/2017 FINDINGS: The heart size, mediastinal configuration and pulmonary vasculature are within normal limits. Patchy densities in the bilateral perihilar and mid lung regions. There is also some area of infiltrate suggested about the left upper lobe as well as left lung base. Multilevel degenerative changes are present. IMPRESSION: 1. Multifocal patchy densities within both lung bryant. Features may very well reflect multilobed pneumonia. Underlying mass lesions however would be difficult to exclude and close clinical and followup imaging correlation recommended. Dictated by: Dictated on workstation # [id number]
[2017-09-14 13:05] VITALS: BP 168/91
[2017-09-14] MEDS: IBUPROFEN 600 MG (MOTRIN) TAB PO PRN (14:22)
[2017-09-14] MEDS ORDERED: HALOPERIDOL 5 MG/ML (HALDOL) AMP ONE (15:51)
[2017-09-14] MEDS ORDERED: clonazePAM 1 MG (KlonoPIN) TAB ONE (15:58)
[2017-09-14] MEDS ORDERED: clonazePAM 1 MG (KlonoPIN) TAB PO ONE (16:06)
[2017-09-14] MEDS ORDERED: HALOPERIDOL 5 MG/ML (HALDOL) AMP IM PRN (17:45)
[2017-09-14] MEDS: AMITRIPTYLINE 150 MG (ELAVIL) TABLET PO SCH (20:14)
[2017-09-14] MEDS: clonazePAM 1 MG (KlonoPIN) TAB PO SCH (20:14)
[2017-09-14 23:05] VITALS: BP 88/52
[2017-09-15] MEDS: RT-ALBUTEROL/IPRATROPIUM 3 ML (DUONEB) VIAL INH SCH ×6 (02:22→21:33)
[2017-09-15 07:17] VITALS: BP 129/57
--- NOTE | 2017-09-15 08:03 | Progress Note-Hospitalist ---
Subjective HPI/CC On Admission Date Seen by Provider: September 15, 2017 Time Seen by Provider: 07:58 Chief complaint: Altered mental status and hypothermia of 93 History of present illness: This is a 52-year-old white female who I was consulted by Dr. Davies for hypothermia and altered mental status. Apparently patient was found down for unknown amount of time and found to have hypothermia of 93 is currently on a bearhug her and sleeping soundly area it was evaluated that she was on multiple antipsychotics medications that could cause hypothermia so she will remain in the ICU closely monitored and remained under the bear hugger until on a temperature returns back to normal. Subjective/Events-last exam Pt is asleep. Arouses to verbal stimuli. Said Hi but otherwise did not participate in conversation. Sitter at bedside denies any complaints or concerns. Has been sleeping all night. Objective Exam Vital Signs Vital Signs Date Time Temp Pulse Resp B/P (MAP) Pulse Ox O2 Delivery O2 Flow Rate FiO2 09/15/17 07:17 97.0 89 20 129/57 (81) 90 Room Air 09/14/17 02:32 3.00 Capillary Refill : Greater Than 3 Seconds General Appearance: WD/WN, Other (sleeping) Respiratory: Lungs Clear, No Respiratory Distress Cardiovascular: Regular Rate, Rhythm, No Murmur Gastrointestinal: Normal Bowel Sounds, Non Tender, Soft Extremity: No Calf Tenderness, No Pedal Edema Neurologic/Psychiatric: Other (easily arouses but quickly falls back asleep) Results/Procedures Lab Patient resulted labs reviewed. Assessment/Plan Assessment and Plan Assess & Plan/Chief Complaint 1. Altered mental status- strongly suspect uncontrolled seizure disorder likely due to noncompliance. We'll need neurologic follow-up on discharge. Will discussed with SW and with Daughter about potential psych placement or need for guardianship if she is unwilling to agree to placement. 2. History of traumatic brain injury likely cause of number 1. She is not able to care for herself at home without direct supervision as evidence by this and other similar admissions. I am concerned that she will need guardianship if her mentation does not drastically improve. 3. Reported history of schizoaffective disorder and posttraumatic stress disorder. 4. Likely COPD with reactive airways- Cont Advair BID, MAT protocol. 5. [facility] anticoagulation- I am unsure why she is on anticoagulation but am concerned about her continuing this if not in a supervised setting Clinical Quality Measures DVT/VTE Risk/Contraindication: Risk Factor Score Per Nursin RFS Level Per Nursing on Admit: 4+=Very High IRA HOPKINS MD September 15, 2017 08:03
[2017-09-15] MEDS: APIXABAN 2.5 MG (ELIQUIS) TABLET PO SCH ×2 (09:39→20:04)
[2017-09-15] MEDS: NICOTINE PATCH REMOVAL TP SCH (09:39)
[2017-09-15] MEDS: PANTOPRAZOLE 40 MG (PROTONIX) TAB PO SCH (09:39)
[2017-09-15] MEDS: NICOTINE 21 MG (NICODERM) PATCH TD SCH (09:39)
[2017-09-15] MEDS: clonazePAM 1 MG (KlonoPIN) TAB PO SCH ×2 (09:40→20:03)
[2017-09-15] MEDS: GABAPENTIN 600 MG (NEURONTIN) TAB PO SCH ×3 (09:40→20:03)
[2017-09-15] MEDS: RT-ADVAIR HFA 115/21 MCG PER PUFF IH SCH ×2 (10:50→18:39)
--- NOTE | 2017-09-15 11:12 | Physical Therapy Daily Note ---
PT Daily Note-Current Subjective Patient agrees to PT. Pain Numeric Pain Scale: 0-No Pain Location: No Pain Reported Mental Status Patient Orientation: Person, Time, Situation Transfers Functional [place] Measure 0=Not Assessed/NA 4=Minimal Assistance 1=Total Assistance 5=Supervision or Setup 2=Maximal Assistance 6=Modified [place] 3=Moderate Assistance 7=Complete IndependenceIRFPAI Quality Coding Scale 6 Independent with activity with or without an assistive device 5 Patient requires set up or clean up by helper. Patient completes activity by themselves 4 Supervision or touching assist (CGA). [place] provide cues , steadying assist 3 The helper provides less than half the effort to complete the activity 2 The helper provides more than half the effort to complete the activity 1 Dependent. The helper does all the effort to complete an activity 7 Patient refused to complete or attempt activity 9 The patient did not perform the activity before the current illness or injury 88 Not attempted due to Medical conditions or safety concerns Transfers (B, C, W/C) (FIM): 7 Scootin Rollin Supine to/from Sit: 7 Sit to/from Stand: 7 Weight Bearing Right Lower Extremity: Right Full Weight Bearing Left Lower Extremity: Left Full Weight Bearing Gait Training Gait (FIM): 7 Distance (FIM): 3=150 ft Distance: 800' Gait Level of Assist: 7 Gait Assistive Device: None safe and functional Assessment Patient is currently at independent OF with all gross motor skills safely and does not require skilled therapy intervention. PT to dismiss patient from services at this time. PT Short Term Goals Short Term Goals Time Frame: September 19, 2017 Transfers (B,C,W/C) (FIM): 5 Gait (FIM): 5 Gait Distance Comment: 300' Gait Level of Assist: 5 Gait Assistive Device: None PT Plan Treatment/Plan Treatment Plan: Discontinue PT, goals met Treatment Plan: Bed Mobility, Education, Functional Activity [place], Functional Strength, Gait, Safety, Therapeutic Exercise, Transfers Treatment Duration: September 19, 2017 Frequency: 6 times per week Estimated Hrs Per Day: .25 hour per day (15-30') Patient and/or Family Agrees t: Yes Time/GCodes Time In: 1035 Time Out: 1100 Total Billed Treatment Time: 25 Total Billed Treatment 1 visit FA x 2 25 min [place] PT September 15, 2017 11:12
[2017-09-15 12:32] VITALS: BP 127/68
[2017-09-15 15:09] VITALS: BP 129/68
[2017-09-15] MEDS: AMITRIPTYLINE 150 MG (ELAVIL) TABLET PO SCH (20:03)
[2017-09-15] MEDS: IBUPROFEN 600 MG (MOTRIN) TAB PO PRN (20:04)
[2017-09-15] MEDS: HALOPERIDOL 5 MG (HALDOL) TAB PO PRN (20:09)
[2017-09-16] MEDS: RT-ALBUTEROL/IPRATROPIUM 3 ML (DUONEB) VIAL INH SCH ×3 (01:12→10:18)
[2017-09-16] MEDS: HALOPERIDOL 5 MG (HALDOL) TAB PO PRN ×2 (03:33→18:29)
[2017-09-16 03:41] VITALS: BP 112/58
[2017-09-16] MEDS: RT-ADVAIR HFA 115/21 MCG PER PUFF IH SCH ×2 (06:45→20:19)
[2017-09-16 08:00] VITALS: BP 110/69
[2017-09-16] MEDS: clonazePAM 1 MG (KlonoPIN) TAB PO SCH ×2 (09:59→20:32)
[2017-09-16] MEDS: GABAPENTIN 600 MG (NEURONTIN) TAB PO SCH ×3 (10:00→20:32)
[2017-09-16] MEDS: APIXABAN 2.5 MG (ELIQUIS) TABLET PO SCH ×2 (10:00→20:32)
[2017-09-16] MEDS: PANTOPRAZOLE 40 MG (PROTONIX) TAB PO SCH (10:00)
[2017-09-16] MEDS: NICOTINE 21 MG (NICODERM) PATCH TD SCH (10:00)
[2017-09-16] MEDS: NICOTINE PATCH REMOVAL TP SCH (10:00)
--- NOTE | 2017-09-16 10:11 | Progress Note-Hospitalist ---
Subjective HPI/CC On Admission Date Seen by Provider: September 16, 2017 Time Seen by Provider: 10:03 Chief complaint: Altered mental status and hypothermia of 93 History of present illness: This is a 52-year-old white female who I was consulted by Dr. Davies for hypothermia and altered mental status. Apparently patient was found down for unknown amount of time and found to have hypothermia of 93 is currently on a bearhug her and sleeping soundly area it was evaluated that she was on multiple antipsychotics medications that could cause hypothermia so she will remain in the ICU closely monitored and remained under the bear hugger until on a temperature returns back to normal. Subjective/Events-last exam Pt mentation improved from yesterday but still somewhat tangential in conversation. Still is agreeable to SNF placement and also agreed to fill out DPOA paperwork today and stated she wanted her daughter Sera to be assigned her DPOA. She discussed her eventual plan to move to a senior living community in [place]. Objective Exam Vital Signs Vital Signs Date Time Temp Pulse Resp B/P (MAP) Pulse Ox O2 Delivery O2 Flow Rate FiO2 09/16/17 08:00 97.8 92 20 110/69 (83) 97 Room Air 09/14/17 02:32 3.00 Capillary Refill : Greater Than 3 Seconds General Appearance: No Apparent Distress, WD/WN Respiratory: No Accessory Muscle Use, No Respiratory Distress Extremity: No Pedal Edema Neurologic/Psychiatric: Alert, Other (oriented x3, tangential thought process but no obvious hallucinations or delusions, normal speech not pressured) Skin: Normal Color, Warm/Dry Results/Procedures Lab Patient resulted labs reviewed. Assessment/Plan Assessment and Plan Assess & Plan/Chief Complaint 1. Altered mental status- strongly suspect uncontrolled seizure disorder likely due to noncompliance. Will need neurologic follow-up on discharge. Mentation improved and will to go to SNF and agreeable to signing DPOA paperwork. 2. History of traumatic brain injury likely cause of number 1. She is not able to care for herself at home without direct supervision as evidence by this and other similar admissions. Mentation improved today. 3. Reported history of schizoaffective disorder and posttraumatic stress disorder. 4. Likely COPD with reactive airways- Cont Advair BID, MAT protocol. 5. [facility] anticoagulation- I am unsure why she is on anticoagulation but am concerned about her continuing this if not in a supervised setting. 6. DC Planning- [facility] declined patient. Will send referral for [facility] and rehab today. Clinical Quality Measures DVT/VTE Risk/Contraindication: Risk Factor Score Per Nursin RFS Level Per Nursing on Admit: 4+=Very High IRA HOPKINS MD September 16, 2017 10:11 am
[2017-09-16] MEDS ORDERED: RT-ALBUTEROL/IPRATROPIUM 3 ML (DUONEB) VIAL INH PRN (10:30)
[2017-09-16] MEDS ORDERED: DOCUSATE SODIUM 100 MG (COLACE) CAP PO ONE (14:35)
[2017-09-16] MEDS ORDERED: DOCU-143 PO (14:37)
[2017-09-16] MEDS ORDERED: DOCUSATE SODIUM 100 MG (COLACE) CAP PO PRN (14:45)
[2017-09-16 15:25] VITALS: BP 158/73
[2017-09-16] MEDS: AMITRIPTYLINE 150 MG (ELAVIL) TABLET PO SCH (20:32)
[2017-09-16] MEDS: IBUPROFEN 600 MG (MOTRIN) TAB PO PRN (20:32)
[2017-09-17 00:33] VITALS: BP 138/67
[2017-09-17] MEDS: PANTOPRAZOLE 40 MG (PROTONIX) TAB PO SCH (05:00)
[2017-09-17] MEDS: HALOPERIDOL 5 MG (HALDOL) TAB PO PRN ×2 (05:01→11:43)
[2017-09-17] MEDS: RT-ADVAIR HFA 115/21 MCG PER PUFF IH SCH (07:50)
[2017-09-17 08:00] VITALS: BP 104/59
[2017-09-17] MEDS ORDERED: FLUT12AE4 IH (08:04)
--- NOTE | 2017-09-17 08:08 | Discharge Summary-Hospitalist ---
Diagnosis/Chief Complaint Date of Admission September 11, 2017 at 8:02 am Date of Discharge Discharge Date: September 17, 2017 Discharge Diagnosis (1) Altered mental state Status: Resolved (2) HYPOTHERMIA Status: Resolved (3) Schizo affective schizophrenia Status: Chronic (4) [place] Status: Acute Discharge Summary Procedures/Consulations Dr Davies- Surgery Discharge Physical Exam Allergies: Coded Allergies: No Known Drug Allergies (Unverified , 06/09/14) Vitals & I&Os Vital Signs Date Time Temp Pulse Resp B/P (MAP) Pulse Ox O2 Delivery O2 Flow Rate FiO2 09/17/17 11:58 09/17/17 10:25 92 Room Air 09/17/17 08:00 80 22 09/17/17 00:33 99.5 09/14/17 02:32 3.00 General Appearance: Alert, No Acute Distress Respiratory: Clear to Auscultation Cardiovascular: Regular Rate Hospital Course Pt was admitted for altered mental status and hypothermia after being found down in her yard. She has a histoory of noncompliance with meds and seizure disorder and presumptively had a seizure prior to presentation. When she did become more alert she displayed severe features of mental illness originally with paranoia and then alternated between depression and hypomania. She was tangential in her thought process with occasional pressured speech. She wad deemed unsafe to DC home and warranted further psychiatric evaluation than could be provided at this hospital. She requested transfer to the [facility] were her physicians are and where they could provide psychiatric evaluation. She was discharged with EMS to the [facility] with Dr Pedro as the accepting physician. Labs (last 24 hrs) Microbiology 09/11/17 MRSA Screen - Final, Complete MRSA not isolated Patient resulted labs reviewed. Discussion & Recommendations Discharge Planning: >30 minutes discharge planning Discharge Home Medications: Active Scripts Active Advair Hfa 115-21 Mcg Inhaler (Fluticasone/Salmeterol) 12 Gm Hfa.aer.ad 2 Puff IH RTBID Reported Colace (Docusate Sodium) 100 Mg Capsule 100 Mg PO BID PRN Clonazepam 1 Mg Tablet 1 Mg PO DAILY PRN Atorvastatin Calcium 40 Mg Tablet 20 Mg PO HS TAKES 1/2 (40MG) TABLET Amitriptyline HCl 75 Mg Tablet 150 Mg PO HS TAKES 2 (75 MG) TABLETS Gabapentin 600 Mg Tablet 1,200 Mg PO TID TAKES 2 (600 MG) TABLETS Lamotrigine 200 Mg Tablet 200 Mg PO BID Eliquis (Apixaban) 2.5 Mg Tablet 2.5 Mg PO BID Instructions to patient/family Please see electronic discharge instructions given to patient. Clinical Quality Measures DVT/VTE Risk/Contraindication: Risk Factor Score Per Nursin RFS Level Per Nursing on Admit: 4+=Very High Problem Qualifiers (1) Altered mental state: Altered mental status type: somnolence Qualified Codes: R40.0 - Somnolence IRA HOPKINS MD September 17, 2017 08:08
[2017-09-17] MEDS: APIXABAN 2.5 MG (ELIQUIS) TABLET PO SCH (08:52)
[2017-09-17] MEDS: clonazePAM 1 MG (KlonoPIN) TAB PO SCH (08:52)
[2017-09-17] MEDS: NICOTINE PATCH REMOVAL TP SCH (08:52)
[2017-09-17] MEDS: NICOTINE 21 MG (NICODERM) PATCH TD SCH (08:52)
[2017-09-17] MEDS: GABAPENTIN 600 MG (NEURONTIN) TAB PO SCH (08:52)
== END 2017-09-17 11:58 | DRG 923 ==
LOC: EDUNIT# 06:50 → ER 06:52 → ICU 08:02 → EEVIPCON 08:02 → 4TH 09-12 13:10
PROVIDERS: ADMIT Surgery; ATTEND Internal Medicine
PROC: 05HQ33Z Insertion of Infusion Device into Left External Jugular Vein, Percutaneous Approach (ICD-10-PCS; principal; 2017-09-11)
DX: T68.XXXA Hypothermia, initial encounter (principal); T43.501A Poisoning by unspecified antipsychotics and neuroleptics, accidental (unintentional), initial encounter; G40.909 Epilepsy, unspecified, not intractable, without status epilepticus; R40.0 Somnolence; J44.9 Chronic obstructive pulmonary disease, unspecified; S30.810A Abrasion of lower back and pelvis, initial encounter; S40.811A Abrasion of right upper arm, initial encounter; S40.812A Abrasion of left upper arm, initial encounter; S50.811A Abrasion of right forearm, initial encounter; S50.812A Abrasion of left forearm, initial encounter; R09.89 Other specified symptoms and signs involving the circulatory and respiratory systems; G50.0 Trigeminal neuralgia; F17.210 Nicotine dependence, cigarettes, uncomplicated; F41.9 Anxiety disorder, unspecified; F43.10 Post-traumatic stress disorder, unspecified; F31.9 Bipolar disorder, unspecified; F60.9 Personality disorder, unspecified; F25.9 Schizoaffective disorder, unspecified; F11.90 Opioid use, unspecified, uncomplicated; F12.90 Cannabis use, unspecified, uncomplicated; E66.9 Obesity, unspecified; Z68.30 Body mass index [BMI] 30.0-30.9, adult; W19.XXXA Unspecified fall, initial encounter; Y92.008 Other place in unspecified non-institutional (private) residence as the place of occurrence of the external cause; Y93.K1 Activity, walking an animal; Z91.14 Patient's other noncompliance with medication regimen; Z79.01 Long term (current) use of anticoagulants; Z87.820 Personal history of traumatic brain injury; Z86.711 Personal history of pulmonary embolism
CPT/HCPCS: 36415; 51702; 70450; 71045; 71046; 72125; 72131; 74177; 80053; 80306; 80320; 80329; 81000; 82962; 83735; 84484; 85025; 85610; 87081; 93005; 94640; 94760; 96361; 96374; 99291; 99292

== ENCOUNTER 2018-01-25 19:51 | Emergency (ER) | payer MEDICARE ==
[~2018-01-25] VITALS: Ht 172.7 cm; Wt 86.2 kg
[~2018-01-25 19:51] MED LIST changes: +CLON1TAB13 PO; -CLON1TAB3 PO; +DOCU-143 PO; +FLUT12AE4 IH; +HYDR-4226 PO; -HYDR-757 PO; -LOSA25TA21 PO; +LOSA25TA6 PO
--- OUTSIDE RECORDS SUMMARY | 2018-01-25 19:57 | XMS REPORT ---
Author Author MASSIMO BOYD [facility] Address [address] [place] [address] Care Team Providers Care Cellophaner Name Role Phone MASSIMO BOYD Unavailable PROBLEMS Type Condition ICD9-CM Code XYN34-GC Code Onset Dates Condition Status SNOMED Code Problem Referred by primary care physician Z76.89 Active [id number] Problem Posttraumatic stress disorder F43.10 Active 47196576 Problem Mood disorder F39 Active 44335659 Problem Other acute pulmonary embolism without acute cor pulmonale I26.99 Active 887216091 Problem Severe episode of recurrent major depressive disorder, without psychotic features F33.2 Active 03966517 Problem Trigeminal neuralgia of right side of face G50.0 Active 47939632 Problem Panic attacks F41.0 Active 386096986 Problem Personality disorder in adult F60.9 Active 52656216 Problem Chronic pain disorder G89.4 Active 997122055 ALLERGIES No Information ENCOUNTERS Encounter Location Date Diagnosis [facility] [id number] [place] [address] 82592- 8288 Feb, [facility] [id number] [place] [address] 36441- 0464 Jan, [facility] [id number] [place] [address] 34270- 5790 Jan, [facility] [id number] [place] [address] 97149- 1047 Jan, [facility] [id number] [place] [address] 14192- 9270 Jan, [facility] [id number] [place] [address] 57647- 7377 Dec, [facility] [id number] [place] [address] 64208- 1527 Dec, Posttraumatic stress disorder F43.10 [facility] [address] [address] 1352 Dec, [facility] [id number] [address] 6128 Dec, [facility] [address] [address] 3111 Dec, [facility] [id number] [place] [address] 83016- 4650 Dec, [facility] [id number] [place] [address] 08318- 5756 Dec, [facility] [id number] [place] [address] 35430- 2099 Dec, [facility] [id number] [place] [address] 44516- 7472 Dec, [facility] [address] [address] 9980 Dec, [facility] [address] [address]- 6316 Dec, Posttraumatic stress disorder F43.10 ; Severe episode of recurrent major depressive disorder, without psychotic features F33.2 and Personality disorder in adult F60.9 [facility] [address] [address] 3225 Nov, [facility] [address] [address]- 7466 Oct, [facility] [address] [address]- 9221 Oct, [facility] [address] [address]- 8316 Oct, [facility] [address] [address]- 8301 Oct, Posttraumatic stress disorder F43.10 ; Severe episode of recurrent major depressive disorder, without psychotic features F33.2 and Personality disorder in adult F60.9 [facility] [address] [facility] [id number] [place] [address]- 4320 Oct, [facility] [address] [facility] [id number] [place] [address]- 7107 Oct, [facility] [address] [facility] [id number] [place] [address]- 0171 September, [facility] [address] [id number] [place] [address]- 0150 September, [facility] [address] [facility] [id number] [place] [address]- 7799 September, [facility] [address] [facility] [id number] [place] [address]- 7394 September, [facility] [id number] [place] [address]- 8690 September, [facility] [id number] [place] [address]- 1633 September, [facility] [id number] [address]- 3434 September, [facility] [id number] [address]- 4913 September, Posttraumatic stress disorder F43.10 ; Severe episode of recurrent major depressive disorder, without psychotic features F33.2 and Personality disorder in adult F60.9 [facility] [address] [facility] [id number] [address]- 1118 September, [facility] [id number] [place] [address]- 2809 September, [facility] [address] [facility] [id number] [place] [address]- 7533 September, Other pulmonary embolism without acute cor pulmonale, unspecified chronicity I26.99 [facility] [place] [facility] [address] [id number] [place] [address]- 6966 September, [facility] [place] [facility] [address] [id number] [place] [address]- 7549 September, [facility] [place] [facility] [address] [id number] [place] [address] 2546 September, [facility] [place] [facility] [address] [id number] [place] [address]- 1054 September, [facility] [place] [facility] [address] [id number] [place] [address]- 5983 September, [facility] [place] [facility] [address] [id number] [place] [address]- 8275 Aug, [facility] [place] [facility] [address] [id number] [place] [address]- 3479 Aug, [facility] [place] [facility] [address] [id number] [place] [address]- 9274 Aug, [facility] [place] [facility] [address] [id number] [place] [address]- 3671 Aug, [facility] [place] [facility] [address] [id number] [place] [address]- 6602 Aug, [facility] [place] [facility] [address] [id number] [place] [address]- 9159 Aug, [facility] [place] [facility] [address] [id number] [place] [address]- 0586 Jul, [facility] [place] [facility] [address] [id number] [place] [address]- 9042 Jul, [facility] [place] [facility] [address] [id number] [place] [address]- 3964 Jul, [facility] [address] [id number] [place] [id number] Jul, [facility] [place] [facility] [address] [id number] [place] [address] Jul, [facility] [id number] [address]- 0499 Jul, [facility] [address] [address] Jul, Other specified bacterial agents as the cause of diseases classified elsewhere B96.89 and Local infection of the skin and subcutaneous tissue, unspecified L08.9 [facility] [address] [address]- 3899 Jul, [facility] [id number] [address]- 3192 Jun, [facility] [address] [address]- 5971 Jun, [facility] [address] [address]7180 Jun, [facility] [address] [address]- 5097 Jun, [facility] [id number] [address]- 5027 May, [facility] [address] [address]- 5806 May, [facility] [id number] [address]- 3531 May, Neurodermatitis L28.0 [facility] [id number] [address]- 5236 May, [facility] [id number] [address]- 5336 May, [facility] [address] [address]- 3524 May, [facility] [id number] [address]- 2762 May, [facility] [address] [address]- 9808 May, Screening, lipid Z13.220 and High risk medication use Z79.899 [facility] [address] [address]- 2406 May, [facility] [address] [address]- 8803 May, [facility] [id number] [place] [address] 27892- 6186 May, [facility] [id number] [place] [address] 42143- 3935 Apr, [facility] [id number] [place] [address] 40275- 6069 Apr, [facility] [id number] [place] [address] 95257- 0547 Apr, [facility] [id number] [place] [address] 38506- 6915 Apr, [facility] [id number] [place] [address] 87963- 2047 Apr, Posttraumatic stress disorder F43.10 and Trigeminal neuralgia of right side of face G50.0 [facility] [address] [address]- 5505 Apr, [facility] [address] [address] 2543 Apr, [facility] [address] [address]- 2958 Apr, [facility] [id number] [address]- 5501 Mar, Trigeminal neuralgia of right side of face G50.0 [facility] [address] [address]- 9837 Mar, [facility] [id number] [address]- 2016 Mar, Posttraumatic stress disorder F43.10 and Mood disorder F39 [facility] [address] [facility] [id number] [place] [address] 2546 Mar, [facility] [address] [facility] [id number] [place] [address] 2546 Mar, [facility] [address] [facility] [id number] [place] [address] 75218 2546 Mar, [facility] [address] [facility] [id number] [place] [address] 01602 2546 Mar, [facility] [address] [facility] [id number] [place] [address] 89718 2546 Mar, [facility] [id number] [address]- 5306 Mar, Posttraumatic stress disorder F43.10 and Mood disorder F39 [facility] [address] [facility] [id number] [place] [address] 2546 Mar, Chronic pain disorder G89.4 [facility] [id number] [address] 2546 Feb, Chronic pain disorder G89.4 [facility] [id number] [address] 2546 Feb, [facility] [address] [address] 2546 Feb, [facility] [id number] [address] 2546 Feb, Trigeminal neuralgia of right side of face G50.0 [facility] [id number] [address] 2546 Feb, [facility] [address] [facility] [id number] [address] 2546 Feb, Posttraumatic stress disorder F43.10 ; Mood disorder F39 and Panic attacks F41.0 [facility] [address] [facility] [id number] [place] [address] 2546 13 Feb, 2016 [facility] [address] [facility] [id number] [place] [address] 38154 2546 Feb, [facility] [address] [facility] [id number] [place] [address] 2546 Feb, [facility] [address] [facility] [id number] [place] [address] 80000 2546 27 Jan, 2016 Trigeminal neuralgia of right side of face G50.0 [facility] [id number] [place] [address] 72412 2546 Jan, [facility] [address] [facility] [id number] [place] [address] 62478 2546 Jan, [facility] [id number] [place] [address] 92042 2546 Jan, Trigeminal neuralgia of right side of face G50.0 [facility] [address] [facility] [id number] [place] [address] 2546 Jan, Trigeminal neuralgia of right side of face G50.0 [facility] [address] [facility] [id number] [address] 2546 Jan, [facility] [id number] [address] 2546 Dec, [facility] [address] [facility] [id number] [place] [address] 2546 Dec, Trigeminal neuralgia of right side of face G50.0 [facility] [address] [facility] [id number] [place] [address] 2546 Dec, [facility] [address] [facility] [id number] [place] [address] 2546 Nov, Posttraumatic stress disorder F43.10 ; Mood disorder F39 and Panic attacks F41.0 [facility] [address] [address]- 2015 Nov, Posttraumatic stress disorder F43.10 and Mood disorder F39 [facility] [id number] [place] [address] 00734- 5306 Nov, [facility] [id number] [place] [address] 25833 2546 Nov, [facility] [id number] [place] [address] 19460- 7219 Nov, Confused R41.0 and Mood disorder F39 [facility] [id number] [place] [address] 70624- 0808 Oct, Mood disorder F39 ; Posttraumatic stress disorder F43.10 and Dementia associated with other underlying disease with behavioral disturbance F02.81 [facility] [id number] [place] [address] 59377- 5670 Oct, [facility] [id number] [place] [address] 58869- 3723 Oct, [facility] [id number] [place] [address] 29844- 9371 Oct, [facility] [id number] [place] [address] 49387- 1898 Oct, [facility] [id number] [place] [address] 18494- 7018 Oct, Posttraumatic stress disorder F43.10 and Mood disorder F39 [facility] [address] [address]- 2050 Oct, [facility] [id number] [place] [address] 45546- 9594 Oct, Establishing care with new doctor, encounter for Z71.89 [facility] [address] [address]- 8759 Oct, Mood disorder F39 and Posttraumatic stress disorder F43.10 [facility] [id number] [place] [address] 19242- 1444 07 Oct, 2015 Establishing care with new doctor, encounter for Z71.89 and Dysthymia F34.1 [facility] [id number] [place] [address] 63985- 9104 September, Posttraumatic stress disorder F43.10 and Dementia associated with other underlying disease with behavioral disturbance F02.81 [place] [facility] [id number] [place] [address] 55230- 5875 September, Mood disorder F39 ; Posttraumatic stress disorder F43.10 ; Generalized anxiety disorder F41.1 ; Panic attacks F41.0 and Social anxiety disorder F40.10 [facility] [id number] [place] [address] 13103- 5062 September, [facility] [id number] [place] [address] 79560 -8396 September, Acute pain of right shoulder M25.511 [facility] [id number] [place] [address] 54877- 9411 September, [facility] [id number] [place] [address] 21181- 8584 September, Posttraumatic stress disorder F43.10 and Mood disorder F39 [place] [id number] [place] [address] 07063- 4557 Jul, [facility] [id number] [place] [address] 43377- 5585 Jul, Posttraumatic stress disorder F43.10 and Mood disorder F39 [facility] [id number] [place] [address] 29056- 2074 Jul, Mood disorder F39 and Posttraumatic stress disorder F43.10 [place] [id number] [place] [address] 68951- 6704 Jul, Posttraumatic stress disorder F43.10 and Mood disorder F39 [place] [id number] [place] [address] 01254- 4066 Jun, Posttraumatic stress disorder F43.10 and Mood disorder F39 IMMUNIZATIONS No Known Immunizations SOCIAL HISTORY Never Assessed REASON FOR VISIT Refill request/Denied PLAN OF CARE VITAL SIGNS MEDICATIONS Unknown [...]
--- OUTSIDE RECORDS SUMMARY | 2018-01-25 19:57 | XMS REPORT | Clinical Summary ---
Author Author [facility] Organization [facility] Address Unknown Phone Unavailable Care Team Providers Care Reinforced Steel Placing Supervisor Name Role Phone RamonMarla hawkins SHUTTLER PCP Source Comments Some departments are not documenting in the electronic medical record. 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
--- OUTSIDE RECORDS SUMMARY | 2018-01-25 20:09 | XMS REPORT | Continuity of Care Document ---
Author Author [facility] Organization [facility] Address Unknown Phone Unavailable Allergies Active Description Code Type Severity Reaction Onset Reported/Identified Relationship to Patient Clinical Status Yes NO KNOWN DRUG ALLERGIES UNKNOWN NO KNOWN DRUG ALLERG Yes No Known Drug Allergies [id number] Drug Allergy Unknown N/A 06/09/2014 Medications Medication Packaging Start Date Stop Date Route Dosage Sig KETOROLAC VIAL INJ 60 MG/2CC (TORADOL VIAL) MG 10/28/2017 10/28/2017 ONCE&0840 TETANUS,DIPTH,PERT ADULT INJ 0 (ADACEL SYRINGE) ml 10/28/2017 10/28/2017 ONCE&0921 LACTATED RINGERS 1000CC IV BAG INJ ml 10/28/2017 10/28/2017 ONCE&0921 CEFTRIAXONE PREMIX IV BAG IV 1 GM/50CC (ROCEPHIN PREMIX IV BAG) GM 10/28/2017 10/28/2017 ONCE&0921 Normal SALINE 0.9 % (NS 100cc) (plain bag) ml 10/28/2017 10/28/2017 ONCE&0951 Normal SALINE 0.9 % (NS 100cc) (plain bag) ml 10/28/2017 10/28/2017 ONCE&0955 Problems Date Dx Coded Attending Type Code [...] Ot 716.97 ARTHROPATHY NOS-ANKLE 01/06/2015 HUMAIRA HARVEY APRN Ot 719.47 JOINT PAIN-ANKLE 02/10/2015 HUMAIRA HARVEY APRN Ot K02.9 DENTAL CARIES, UNSPECIFIED 02/10/2015 HUMAIRA HARVEY APRN Ot K08.8 OTHER SPECIFIED DISORDERS OF TEETH AND S 02/29/2016 MASSIMO BOYDP Ot 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 03/05/2016 MASSIMO BOYD Ot 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 07/18/2016 LIZ CROWLEY MD Ot F12.90 CANNABIS USE, UNSPECIFIED, UNCOMPLICATED 07/18/2016 LIZ CROWLEY MD Ot F17.210 NICOTINE DEPENDENCE, CIGARETTES, UNCOMPL 07/18/2016 LIZ CROWLEY MD Ot F23 BRIEF PSYCHOTIC DISORDER 07/18/2016 LIZ CROWLEY MD Ot F31.9 BIPOLAR DISORDER, UNSPECIFIED 07/18/2016 LIZ CROWLEY MD Ot F43.12 POST-TRAUMATIC STRESS DISORDER, CHRONIC 07/18/2016 LIZ CROWLEY MD Ot G40.909 EPILEPSY, UNSP, NOT INTRACTABLE, WITHOUT 07/18/2016 LIZ CROWLEY MD Ot I26.99 OTHER PULMONARY EMBOLISM WITHOUT ACUTE C 07/18/2016 LIZ CROWLEY MD, Ot J18.9 PNEUMONIA, UNSPECIFIED ORGANISM 07/18/2016 LIZ CROWLEY MD Ot S92.512K DISP FX OF PROX PHALANX OF L LESS TOE(S) 07/18/2016 LIZ CROWLEY MD Ot Z87.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 07/18/2016 LIZ CROWLEY MD Ot Z91.81 HISTORY OF FALLING 08/20/2016 MASSIMO BOYDP Ot 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 08/20/2016 MASSIMO BOYDP Ot 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 09/01/2016 LANDON GODOY DO Ot F17.210 NICOTINE DEPENDENCE, CIGARETTES, UNCOMPL 09/01/2016 [facility], LANDON K Ot 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 09/01/2016 [facility], LANDON K Ot G89.29 OTHER CHRONIC PAIN 09/01/2016 [facility], LANDON K Ot M54.5 LOW BACK PAIN 09/01/2016 [facility], LANDON K Ot N39.0 URINARY TRACT INFECTION, SITE NOT SPECIF 09/01/2016 [facility], LANDON K Ot R51 HEADACHE 09/01/2016 [facility] DO, LANDON K Ot Z23 ENCOUNTER FOR IMMUNIZATION 09/01/2016 [facility] LNADON K Ot Z79.01 TOOL MAKER (CURRENT) USE OF ANTICOAGULANT 09/01/2016 [facility] LANDON K Ot Z79.899 OTHER TOOL MAKER (CURRENT) DRUG THERAPY 09/01/2016 [facility] LANDON K Ot Z86.711 PERSONAL HISTORY OF PULMONARY EMBOLISM 09/02/2016 [facility] LANDON K Ot F17.210 NICOTINE DEPENDENCE, CIGARETTES, UNCOMPL 09/02/2016 [facility], LANDON K Ot 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 09/02/2016 [facility], LANDON K Ot G89.29 OTHER CHRONIC PAIN 09/02/2016 [facility] DO, LANDON K Ot M54.5 LOW BACK PAIN 09/02/2016 [facility] LANDON K Ot N39.0 URINARY TRACT INFECTION, SITE NOT SPECIF 09/02/2016 [facility] LANDON K Ot R51 HEADACHE 09/02/2016 [facility] LANDON K Ot Z23 ENCOUNTER FOR IMMUNIZATION 09/02/2016 [facility] LANDON K Ot Z79.01 TOOL MAKER (CURRENT) USE OF ANTICOAGULANT 09/02/2016 [facility] LANDON K Ot Z79.899 OTHER CUSTODIAL (CURRENT) DRUG THERAPY 09/02/2016 [facility] LANDON K Ot Z86.711 PERSONAL HISTORY OF PULMONARY EMBOLISM 09/03/2016 [facility] DO LANDON K Ot F17.210 NICOTINE DEPENDENCE, CIGARETTES, UNCOMPL 09/03/2016 [facility], LANDON K Ot 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 09/03/2016 [facility] LANDON K Ot G89.29 OTHER CHRONIC PAIN 09/03/2016 [facility], LANDON K Ot M54.5 LOW BACK PAIN 09/03/2016 JAYNE DO, LANDON K Ot N39.0 URINARY TRACT INFECTION, SITE NOT SPECIF 09/03/2016 JAYNE DODAVONTEA K Ot R51 HEADACHE 09/03/2016 JAYNE DO LANDON K Ot Z23 ENCOUNTER FOR IMMUNIZATION 09/03/2016 JAYNE DAVONTE CHRISA K Ot Z79.01 CUSTODIAL (CURRENT) USE OF ANTICOAGULANT 09/03/2016 JAYNE DO LANDON K Ot Z79.899 OTHER CUSTODIAL (CURRENT) DRUG THERAPY 09/03/2016 JAYNE DAVONTE CHRISA K Ot Z86.711 PERSONAL HISTORY OF PULMONARY EMBOLISM 09/03/2016 JAYNE DO LANDON K Ot F17.210 NICOTINE DEPENDENCE, CIGARETTES, UNCOMPL 09/03/2016 JAYNE DO, LANDON K Ot 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 09/03/2016 [facility] LANDON K Ot G89.29 OTHER CHRONIC PAIN 09/03/2016 [facility], LANDON K Ot M54.5 LOW BACK PAIN 09/03/2016 JAYNE DO LANDON K Ot N39.0 URINARY TRACT INFECTION, SITE NOT SPECIF 09/03/2016 JAYNE DO LANDON K Ot R51 HEADACHE 09/03/2016 JAYNE DO, LANDON K Ot Z23 ENCOUNTER FOR IMMUNIZATION 09/03/2016 JAYNE DAVONTE CHRISA Elian Ot Z79.01 TOOL MAKER (CURRENT) USE OF ANTICOAGULANT 09/03/2016 JAYNE DAVONTE CHRISA K Ot Z79.899 OTHER TOOL MAKER (CURRENT) DRUG THERAPY 09/03/2016 JAYNE DAVONTE CHRISA K Ot Z86.711 PERSONAL HISTORY OF PULMONARY EMBOLISM 09/03/2016 JAYNE DO LANDON K Ot F17.210 NICOTINE DEPENDENCE, CIGARETTES, UNCOMPL 09/03/2016 JAYNE DO, LANDON K Ot 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 09/03/2016 JAYNE DO LANDON K Ot G89.29 OTHER CHRONIC PAIN 09/03/2016 JAYNE DO, LANDON K Ot M54.5 LOW BACK PAIN 09/03/2016 JAYNE DO, LANDON K Ot N39.0 URINARY TRACT INFECTION, SITE NOT SPECIF 09/03/2016 JAYNE DO, LANDON K Ot R51 HEADACHE 09/03/2016 JAYNE DO LANDON K Ot Z23 ENCOUNTER FOR IMMUNIZATION 09/03/2016 JAYNE DO LANDON K Ot Z79.01 TOOL MAKER (CURRENT) USE OF ANTICOAGULANT 09/03/2016 JAYNE , LANDON K Ot Z79.899 OTHER CUSTODIAL (CURRENT) DRUG THERAPY 09/03/2016 JAYNE DAVONTEA K Ot Z86.711 PERSONAL HISTORY OF PULMONARY EMBOLISM 09/03/2016 JAYNE LANDON K Ot F17.210 NICOTINE DEPENDENCE, CIGARETTES, UNCOMPL 09/03/2016 JAYNE DO, LANDON K Ot 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 09/03/2016 JAYNE LANDON K Ot G89.29 OTHER CHRONIC PAIN 09/03/2016 JAYNE DO, LANDON K Ot M54.5 LOW BACK PAIN 09/03/2016 JAYNE DO, LANDON K Ot N39.0 URINARY TRACT INFECTION, SITE NOT SPECIF 09/03/2016 JAYNE DODAVONTEA K Ot R51 HEADACHE 09/03/2016 JAYNE DO LANDON K Ot Z23 ENCOUNTER FOR IMMUNIZATION 09/03/2016 [facility] DAVONTEA K Ot Z79.01 TOOL MAKER (CURRENT) USE OF ANTICOAGULANT 09/03/2016 [facility] LANDON K Ot Z79.899 OTHER CUSTODIAL (CURRENT) DRUG THERAPY 09/03/2016 JAYNE LANDON K Ot Z86.711 PERSONAL HISTORY OF PULMONARY EMBOLISM 09/12/2016 JAYNE LANDON K Ot F17.210 NICOTINE DEPENDENCE, CIGARETTES, UNCOMPL 09/12/2016 JAYNE , LANDON K Ot 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 09/12/2016 JAYNE LANDON K Ot G89.29 OTHER CHRONIC PAIN 09/12/2016 JAYNE DO, LANDON K Ot M54.5 LOW BACK PAIN 09/12/2016 [facility], LANDON K Ot N39.0 URINARY TRACT INFECTION, SITE NOT SPECIF 09/12/2016 JAYNE LANDON K Ot R51 HEADACHE 09/12/2016 JAYNE DO LANDON K Ot Z23 ENCOUNTER FOR IMMUNIZATION 09/12/2016 JAYNE DAVONTE CHRISA K Ot Z79.01 TOOL MAKER (CURRENT) USE OF ANTICOAGULANT 09/12/2016 [facility] LANDON K Ot Z79.899 OTHER CUSTODIAL (CURRENT) DRUG THERAPY 09/12/2016 JAYNE DAVONTE CHRISA K Ot Z86.711 PERSONAL HISTORY OF PULMONARY EMBOLISM 12/12/2016 JAYNE DO, LANDON K Ot F17.210 NICOTINE DEPENDENCE, CIGARETTES, UNCOMPL 12/12/2016 JAYNE DO, LANDON K Ot 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 12/12/2016 [facility], LADNON K Ot G89.29 OTHER CHRONIC PAIN 12/12/2016 JAYNE DO, LANDON K Ot M54.5 LOW BACK PAIN 12/12/2016 JAYNE DO, LANDON K Ot N39.0 URINARY TRACT INFECTION, SITE NOT SPECIF 12/12/2016 JAYNE DO, LANDON K Ot R51 HEADACHE 12/12/2016 [facility], LANDON K Ot Z23 ENCOUNTER FOR IMMUNIZATION 12/12/2016 [facility], LANDON K Ot Z79.01 TOOL MAKER (CURRENT) USE OF ANTICOAGULANT 12/12/2016 [facility], LANDON K Ot Z79.899 OTHER CUSTODIAL (CURRENT) DRUG THERAPY 12/12/2016 [facility], LANDON K Ot Z86.711 PERSONAL HISTORY OF PULMONARY EMBOLISM 12/12/2016 [facility], LANDON K Ot F17.210 NICOTINE DEPENDENCE, CIGARETTES, UNCOMPL 12/12/2016 [facility] DO, LANDON K Ot 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 12/12/2016 [facility] DO, LANDON K Ot G89.29 OTHER CHRONIC PAIN 12/12/2016 [facility], LANDON K Ot M54.5 LOW BACK PAIN 12/12/2016 [facility], LANDON K Ot N39.0 URINARY TRACT INFECTION, SITE NOT SPECIF 12/12/2016 [facility], LANDON K Ot R51 HEADACHE 12/12/2016 [facility], LANDON K Ot Z23 ENCOUNTER FOR IMMUNIZATION 12/12/2016 [facility], LANDON K Ot Z79.01 CUSTODIAL (CURRENT) USE OF ANTICOAGULANT 12/12/2016 [facility], LANDON K Ot Z79.899 OTHER CUSTODIAL (CURRENT) DRUG THERAPY 12/12/2016 [facility], LANDON K Ot Z86.711 PERSONAL HISTORY OF PULMONARY EMBOLISM 12/12/2016 [facility], LANDON K Ot F17.210 NICOTINE DEPENDENCE, CIGARETTES, UNCOMPL 12/12/2016 JAYNE DO, LANDON K Ot 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 12/12/2016 [facility], LANDON K Ot G89.29 OTHER CHRONIC PAIN 12/12/2016 JAYNE DO, LANDON K Ot M54.5 LOW BACK PAIN 12/12/2016 JAYNE DO, LANDON K Ot N39.0 URINARY TRACT INFECTION, SITE NOT SPECIF 12/12/2016 JAYNE DO, LANDON K Ot R51 HEADACHE 12/12/2016 [facility], LANDON K Ot Z23 ENCOUNTER FOR IMMUNIZATION 12/12/2016 [facility], LANDON K Ot Z79.01 TOOL MAKER (CURRENT) USE OF ANTICOAGULANT 12/12/2016 [facility], LANDON K Ot Z79.899 OTHER CUSTODIAL (CURRENT) DRUG THERAPY 12/12/2016 [facility], LANDON K Ot Z86.711 PERSONAL HISTORY OF PULMONARY EMBOLISM 12/12/2016 JAYNE DO, LANDON K Ot F17.210 NICOTINE DEPENDENCE, CIGARETTES, UNCOMPL 12/12/2016 [facility], LANDON K Ot 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 12/12/2016 [facility], LANDON K Ot G89.29 OTHER CHRONIC PAIN 12/12/2016 [facility], LANDON K Ot M54.5 LOW BACK PAIN 12/12/2016 [facility], LANDON K Ot N39.0 URINARY TRACT INFECTION, SITE NOT SPECIF 12/12/2016 [facility], LANDON K Ot R51 HEADACHE 12/12/2016 [facility], LANDON K Ot Z23 ENCOUNTER FOR IMMUNIZATION 12/12/2016 [facility] LANDON K Ot Z79.01 TOOL MAKER (CURRENT) USE OF ANTICOAGULANT 12/12/2016 [facility], LANDON K Ot Z79.899 OTHER TOOL MAKER (CURRENT) DRUG THERAPY 12/12/2016 [facility], LANDON K Ot Z86.711 PERSONAL HISTORY OF PULMONARY EMBOLISM 12/12/2016 MASSIMO BOYD Ot 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 12/12/2016 [facility], LANDON K Ot F17.210 NICOTINE DEPENDENCE, CIGARETTES, UNCOMPL 12/12/2016 JAYNE DO, LANDON K Ot 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 12/12/2016 JAYNE DO, LANDON K Ot G89.29 OTHER CHRONIC PAIN 12/12/2016 JAYNE DO, LANDON K Ot M54.5 LOW BACK PAIN 12/12/2016 JAYNE DO, LANDON K Ot N39.0 URINARY TRACT INFECTION, SITE NOT SPECIF 12/12/2016 JAYNE DO, LANDON K Ot R51 HEADACHE 12/12/2016 JAYNE DO LANDON Elian Ot Z23 ENCOUNTER FOR IMMUNIZATION 12/12/2016 JAYNE CHRIS LANDON K Ot Z79.01 TOOL MAKER (CURRENT) USE OF ANTICOAGULANT 12/12/2016 JAYNE DO [place] Elian Ot Z79.899 OTHER TOOL MAKER (CURRENT) DRUG THERAPY 12/12/2016 JAYNE DO LANDON Elian Ot Z86.711 PERSONAL HISTORY OF PULMONARY EMBOLISM 12/12/2016 LANDON GODOY DO Ot F17.210 NICOTINE DEPENDENCE, CIGARETTES, UNCOMPL 12/12/2016 JAYNE LANDON CHRIS Ot 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 12/12/2016 JAYNE LAND[place] CHRIS Ot G89.29 OTHER CHRONIC PAIN 12/12/2016 LANDON GODOY DO Ot M54.5 LOW BACK PAIN 12/12/2016 JAYNE LANDON CHRIS Ot N39.0 URINARY TRACT INFECTION, SITE NOT SPECIF 12/12/2016 LANDON GODOY DO Ot R51 HEADACHE 12/12/2016 JAYNE LAND[place] CHRIS Ot Z23 ENCOUNTER FOR IMMUNIZATION 12/12/2016 JAYNE DO LANDON K Ot Z79.01 CUSTODIAL (CURRENT) USE OF ANTICOAGULANT 12/12/2016 LANDON GODOY DO Ot Z79.899 OTHER CUSTODIAL (CURRENT) DRUG THERAPY 12/12/2016 JAYNE CHRIS LANDON K Ot Z86.711 PERSONAL HISTORY OF PULMONARY EMBOLISM 12/24/2016 TERESA YLNN DO Ot E78.00 PURE HYPERCHOLESTEROLEMIA, UNSPECIFIED 12/24/2016 TERESA LYNN DO Ot F17.210 NICOTINE DEPENDENCE, CIGARETTES, UNCOMPL 12/24/2016 TERESA LYNN DO Ot G40.909 EPILEPSY, UNSP, NOT INTRACTABLE, WITHOUT 12/24/2016 TERESA LYNN DO Ot T42.6X1A POISONING BY OTH ANTIEPLPTC AND SED-HYPN 12/24/2016 TERESA LYNN DO Ot T43.201A POISONING BY UNSP ANTIDEPRESSANTS, ACCID 12/24/2016 TERESA LYNN DO Ot Y92.[address] IN [place] NON-INSTITUT (PRIVATE 12/24/2016 TERESA LYNN DO Ot Z79.01 CUSTODIAL (CURRENT) USE OF ANTICOAGULANT 12/24/2016 TERESA LYNN DO Ot Z79.899 OTHER TOOL MAKER (CURRENT) DRUG THERAPY 12/24/2016 TERESA LYNN DO Ot Z86.711 PERSONAL HISTORY OF PULMONARY EMBOLISM 12/24/2016 TERESA LYNN DO Ot Z87.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 12/24/2016 TERESA LYNN DO Ot E78.00 PURE HYPERCHOLESTEROLEMIA, UNSPECIFIED 12/24/2016 TERESA LYNN DO Ot F17.210 NICOTINE DEPENDENCE, CIGARETTES, UNCOMPL 12/24/2016 TERESA LYNN DO Ot G40.909 EPILEPSY, UNSP, NOT INTRACTABLE, WITHOUT 12/24/2016 TERESA LYNN DO Ot T42.6X1A POISONING BY OT ANTIEPLPTC AND SED-HYPN 12/24/2016 TERESA LYNN DO Ot T43.201A POISONING BY UNS ANTIDEPRESSANTS, ACCID 12/24/2016 TERESA LYNN DO Ot Y92.[address] IN [place] NON-INSTITUT (PRIVATE 12/24/2016 TERESA LYNN DO Ot Z79.01 CUSTODIAL (CURRENT) USE OF ANTICOAGULANT 12/24/2016 TERESA LYNN DO Ot Z79.899 OTHER TOOL MAKER (CURRENT) DRUG THERAPY 12/24/2016 TERESA LYNN DO [...] IMMUNIZATION 12/27/2016 LANDON GODOY DO Ot Z79.01 CUSTODIAL (CURRENT) USE OF ANTICOAGULANT 12/27/2016 LANDON GODOY DO Ot Z79.899 OTHER TOOL MAKER (CURRENT) DRUG THERAPY 12/27/2016 LANDON GODOY DO Ot Z86.711 PERSONAL HISTORY OF PULMONARY EMBOLISM 08/18/2017 MEAGAN CELESTIN, DELVIN Monroy Ot F17.210 NICOTINE DEPENDENCE, CIGARETTES, UNCOMPL 08/18/2017 MEAGAN CELESTIN, DELVIN R Ot 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 08/18/2017 MEAGAN CELESTIN, DELVIN Monroy Ot F29 UNSP PSYCHOSIS NOT DUE TO A SUBSTANCE OR 08/18/2017 MEAGAN CELESTIN, DELVIN Monroy Ot F31.9 BIPOLAR DISORDER, UNSPECIFIED 08/18/2017 MEAGAN CELESTIN, DELVIN R Ot F41.9 ANXIETY DISORDER, UNSPECIFIED 08/18/2017 MEAGAN CELESTIN, DELVIN R Ot F60.9 PERSONALITY DISORDER, UNSPECIFIED 08/18/2017 MEAGAN CELESTIN, DELVIN Monroy Ot G40.909 EPILEPSY, UNSP, NOT INTRACTABLE, WITHOUT 08/18/2017 MEAGAN CELESTIN, DELVIN Monroy Ot R44.1 VISUAL HALLUCINATIONS 08/18/2017 MEAGAN CELESTIN, DELVIN Monroy Ot Z87.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 08/19/2017 MASSIMO BOYD Ot 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 08/19/2017 LANDON GODOY DO Ot F17.210 NICOTINE DEPENDENCE, CIGARETTES, UNCOMPL 08/19/2017 LANDON GODOY DO Ot 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 08/19/2017 LANDON GODOY DO Ot G89.29 OTHER CHRONIC PAIN 08/19/2017 LANDON GODOY DO Ot M54.5 LOW BACK PAIN 08/19/2017 LANDON GODOY DO Ot N39.0 URINARY TRACT INFECTION, SITE NOT SPECIF 08/19/2017 LANDON GODOY DO Ot R51 HEADACHE 08/19/2017 LANDON GODOY DO Ot Z23 ENCOUNTER FOR IMMUNIZATION 08/19/2017 LANDON GODOY DO Ot Z79.01 CUSTODIAL (CURRENT) USE OF ANTICOAGULANT 08/19/2017 LANDON GODOY DO Ot Z79.899 OTHER TOOL MAKER (CURRENT) DRUG THERAPY 08/19/2017 LANDON GODOY DO K Ot Z86.711 PERSONAL HISTORY OF PULMONARY EMBOLISM 09/12/2017 TERESA LYNN DO Ot F17.210 NICOTINE DEPENDENCE, CIGARETTES, UNCOMPL 09/12/2017 TERESA LYNN DO Ot F41.9 ANXIETY DISORDER, UNSPECIFIED 09/12/2017 LEAH CHRIS TERESA Ot G40.909 EPILEPSY, UNSP, NOT INTRACTABLE, WITHOUT 09/12/2017 LEAH DO, TERESA Ot 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 09/12/2017 LYNN DO, TERESA Ot M54.2 CERVICALGIA 09/12/2017 LYNN DO, TERESA Ot M54.5 LOW BACK PAIN 09/12/2017 LEAH CHRIS TERESA Ot R40.0 SOMNOLENCE 09/12/2017 LEAH CHRIS TERESA Ot Z79.01 CUSTODIAL (CURRENT) USE OF ANTICOAGULANT 09/12/2017 LEAH CHRIS TERESA Ot Z86.711 PERSONAL HISTORY OF PULMONARY EMBOLISM 09/12/2017 LEAH CHRIS TERESA Ot Z87.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 09/12/2017 LEAH CHRIS TERESA Ot F17.210 NICOTINE DEPENDENCE, CIGARETTES, UNCOMPL 09/12/2017 LEAH CHRIS TERESA Ot F41.9 ANXIETY DISORDER, UNSPECIFIED 09/12/2017 LEAH CHRIS TERESA Ot G40.909 EPILEPSY, UNSP, NOT INTRACTABLE, WITHOUT 09/12/2017 LEAH CHRIS TERESA Ot 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 09/12/2017 LEAH CHRIS TERESA Ot M54.2 CERVICALGIA 09/12/2017 LEAH CHRIS TERESA Ot M54.5 LOW BACK PAIN 09/12/2017 LEAH CHRIS TERESA Ot R40.0 SOMNOLENCE 09/12/2017 LEAH CHRIS TERESA Ot Z79.01 TOOL MAKER (CURRENT) USE OF ANTICOAGULANT 09/12/2017 LEAH CHRIS TERESA Ot Z86.711 PERSONAL HISTORY OF PULMONARY EMBOLISM 09/12/2017 LEAH CHRIS TERESA Ot Z87.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 09/15/2017 LEAH CHRIS TERESA Ot E66.9 OBESITY, UNSPECIFIED 09/15/2017 LEAH CHRIS TERESA Ot F11.90 OPIOID USE, UNSPECIFIED, UNCOMPLICATED 09/15/2017 LEAH CHRIS TERESA Ot F12.90 CANNABIS USE, UNSPECIFIED, UNCOMPLICATED 09/15/2017 LEAH CHRIS TERESA Ot F17.210 NICOTINE DEPENDENCE, CIGARETTES, UNCOMPL 09/15/2017 LEAH CHRIS TERESA Ot F25.9 SCHIZOAFFECTIVE DISORDER, UNSPECIFIED 09/15/2017 LEAH CHRIS TERESA Ot F31.9 BIPOLAR DISORDER, UNSPECIFIED 09/15/2017 LEAH CHRIS TERESA Ot F41.9 ANXIETY DISORDER, UNSPECIFIED 09/15/2017 LEAH DO TERESA Ot F43.10 POST-TRAUMATIC STRESS DISORDER, UNSPECIF 09/15/2017 LEAH CHRIS TERESA Ot F60.9 PERSONALITY DISORDER, UNSPECIFIED 09/15/2017 LEAH CHRIS TERESA Ot G40.909 EPILEPSY, UNSP, NOT INTRACTABLE, WITHOUT 09/15/2017 LEAH DO TERESA Ot 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 09/15/2017 LEAH CHRIS TERESA Ot J44.9 CHRONIC OBSTRUCTIVE PULMONARY DISEASE, U 09/15/2017 LEAH CHRIS TERESA Ot R09.89 OTH SYMPTOMS AND SIGNS INVOLVING THE CIR 09/15/2017 LEAH CHRIS TERESA Ot R40.0 SOMNOLENCE 09/15/2017 LEAH CHRIS TERESA Ot S30.810A ABRASION OF LOWER BACK AND PELVIS, INITI 09/15/2017 LEAH CHRIS TERESA Ot S40.811A ABRASION OF RIGHT UPPER ARM, INITIAL ENC 09/15/2017 LEAH CHRIS TERESA Ot S40.812A ABRASION OF LEFT UPPER ARM, INITIAL ENCO 09/15/2017 LEAH CHRIS TERESA Ot S50.811A ABRASION OF RIGHT FOREARM, INITIAL ENCOU 09/15/2017 LEAH CHRIS TERESA Ot S50.812A ABRASION OF LEFT FOREARM, INITIAL ENCOUN 09/15/2017 LEAH CHRIS TERESA Ot T43.501A POISONING BY RUST ANTIPSYCHOT/NEUROLEPT, 09/15/2017 LEAH CHRIS TERESA Ot T68.XXXA HYPOTHERMIA, INITIAL ENCOUNTER 09/15/2017 LEAH CHRIS TERESA Ot W19.XXXA UNSPECIFIED FALL, INITIAL ENCOUNTER 09/15/2017 LEAH CHRIS TERESA Ot Y92.[address] IN [place] NON-INSTITUT (PRIVATE) 09/15/2017 LEAH CHRIS TERESA Ot Y93.K1 ACTIVITY, WALKING AN ANIMAL 09/15/2017 LEAH CHRIS TERESA Ot Z68.30 BODY MASS INDEX (BMI) 30.0-30.9, ADULT 09/15/2017 LEAH CHRIS TERESA Ot Z79.01 CUSTODIAL (CURRENT) USE OF ANTICOAGULANT 09/15/2017 TERESA LYNN DO Ot Z86.711 PERSONAL HISTORY OF PULMONARY EMBOLISM 09/15/2017 TERESA LYNN DO Ot Z87.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 09/15/2017 TERESA LYNN DO Ot Z91.14 PATIENT'S OTHER NONCOMPLIANCE WITH MEDIC 09/15/2017 TERESA LYNN DO Ot Z91.81 HISTORY OF FALLING 09/16/2017 ELIU LYNN DOI Ot E66.9 OBESITY, UNSPECIFIED 09/16/2017 ELIU LYNN DOI Ot F11.90 OPIOID USE, UNSPECIFIED, UNCOMPLICATED 09/16/2017 ELIU LYNN DOI Ot F12.90 CANNABIS USE, UNSPECIFIED, UNCOMPLICATED 09/16/2017 ELIU LYNN DOI Ot F17.210 NICOTINE DEPENDENCE, CIGARETTES, UNCOMPL 09/16/2017 ELIU LYNN DOI Ot F25.9 SCHIZOAFFECTIVE DISORDER, UNSPECIFIED 09/16/2017 ELIU LYNN DOI Ot F31.9 BIPOLAR DISORDER, UNSPECIFIED 09/16/2017 ELIU LYNN DOI Ot F41.9 ANXIETY DISORDER, UNSPECIFIED 09/16/2017 ELIU LYNN DOI Ot F43.10 POST-TRAUMATIC STRESS DISORDER, UNSPECIF 09/16/2017 ELIU LYNN DOI Ot F60.9 PERSONALITY DISORDER, UNSPECIFIED 09/16/2017 ELIU LYNN DOI Ot G40.909 EPILEPSY, UNSP, NOT INTRACTABLE, WITHOUT 09/16/2017 ELIU LYNN DOI Ot 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 09/16/2017 ELIU LYNN DOI Ot J44.9 CHRONIC OBSTRUCTIVE PULMONARY DISEASE, U 09/16/2017 ELIU LYNN DOI Ot R09.89 OTH SYMPTOMS AND SIGNS INVOLVING THE CIR 09/16/2017 LEAH CHRIS TERESA Ot R40.0 SOMNOLENCE 09/16/2017 TERESA LYNN DO Ot S30.810A ABRASION OF LOWER BACK AND PELVIS, INITI 09/16/2017 ELIU LYNN DOI Ot S40.811A ABRASION OF RIGHT UPPER ARM, INITIAL ENC 09/16/2017 ELIU LYNN DOI Ot S40.812A ABRASION OF LEFT UPPER ARM, INITIAL ENCO 09/16/2017 ELIU LYNN DOI Ot S50.811A ABRASION OF RIGHT FOREARM, INITIAL ENCOU 09/16/2017 TERESA LYNN DO Ot S50.812A ABRASION OF LEFT FOREARM, INITIAL ENCOUN 09/16/2017 TERESA LYNN DO Ot T43.501A POISONING BY RUST ANTIPSYCHOT/NEUROLEPT, 09/16/2017 TERESA LYNN DO Ot T68.XXXA HYPOTHERMIA, INITIAL ENCOUNTER 09/16/2017 TERESA LYNN DO Ot W19.XXXA UNSPECIFIED FALL, INITIAL ENCOUNTER 09/16/2017 TERESA LYNN DO Ot Y92.[address] IN RUST NON-INSTITUT (PRIVATE) 09/16/2017 TERESA LYNN DO Ot Y93.K1 ACTIVITY, WALKING AN ANIMAL 09/16/2017 TERESA LYNN DO Ot Z68.30 BODY MASS INDEX (BMI) 30.0-30.9, ADULT 09/16/2017 ELIU LYNN DOI Ot Z79.01 CUSTODIAL (CURRENT) USE OF ANTICOAGULANT 09/16/2017 TERESA LYNN DO Ot Z86.711 PERSONAL HISTORY OF PULMONARY EMBOLISM 09/16/2017 ELIU LYNN DOI Ot Z87.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 09/16/2017 ELIU LYNN DOI Ot Z91.14 PATIENT'S OTHER NONCOMPLIANCE WITH MEDIC 09/16/2017 ELIU LYNN DOI Ot Z91.81 HISTORY OF FALLING 09/16/2017 ELIU LYNN DOI Ot E66.9 OBESITY, UNSPECIFIED 09/16/2017 ELIU LYNN DOI Ot F11.90 OPIOID USE, UNSPECIFIED, UNCOMPLICATED 09/16/2017 ELIU LYNN DOI Ot F12.90 CANNABIS USE, UNSPECIFIED, UNCOMPLICATED 09/16/2017 LEAH CHRIS TERESA Ot F17.210 NICOTINE DEPENDENCE, CIGARETTES, UNCOMPL 09/16/2017 ELIU LYNN DOI Ot F25.9 SCHIZOAFFECTIVE DISORDER, UNSPECIFIED 09/16/2017 ELIU LYNN DOI Ot F31.9 BIPOLAR DISORDER, UNSPECIFIED 09/16/2017 LEAH CHRIS TERESA Ot F41.9 ANXIETY DISORDER, UNSPECIFIED 09/16/2017 LEAH CHRIS TERESA Ot F43.10 POST-TRAUMATIC STRESS DISORDER, UNSPECIF 09/16/2017 ELIU LYNN DOI Ot F60.9 PERSONALITY DISORDER, UNSPECIFIED 09/16/2017 TERESA LYNN DO Ot G40.909 EPILEPSY, RUST, NOT INTRACTABLE, WITHOUT 09/16/2017 TERESA LYNN DO Ot 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 09/16/2017 TERESA LYNN DO Ot J44.9 CHRONIC OBSTRUCTIVE PULMONARY DISEASE, U 09/16/2017 TERESA LYNN DO Ot R09.89 OTH SYMPTOMS AND SIGNS INVOLVING THE CIR 09/16/2017 TERESA LYNN DO Ot R40.0 SOMNOLENCE 09/16/2017 TERESA LYNN DO Ot S30.810A ABRASION OF LOWER BACK AND PELVIS, INITI 09/16/2017 TERESA LYNN DO Ot S40.811A ABRASION OF RIGHT UPPER ARM, INITIAL ENC 09/16/2017 TERESA LYNN DO Ot S40.812A ABRASION OF LEFT UPPER ARM, INITIAL ENCO 09/16/2017 TERESA LYNN DO Ot S50.811A ABRASION OF RIGHT FOREARM, INITIAL ENCOU 09/16/2017 TERESA LYNN DO Ot S50.812A ABRASION OF LEFT FOREARM, INITIAL ENCOUN 09/16/2017 TERESA LYNN DO Ot T43.501A POISONING BY RUST ANTIPSYCHOT/NEUROLEPT, 09/16/2017 TERESA LYNN DO Ot T68.XXXA HYPOTHERMIA, INITIAL ENCOUNTER 09/16/2017 TERESA LYNN DO Ot W19.XXXA UNSPECIFIED FALL, INITIAL ENCOUNTER 09/16/2017 TERESA LYNN DO Ot Y92.[address] IN RUST NON-INSTITUT (PRIVATE) 09/16/2017 TERESA LYNN DO Ot Y93.K1 ACTIVITY, WALKING AN ANIMAL 09/16/2017 TERESA LYNN DO Ot Z68.30 BODY MASS INDEX (BMI) 30.0-30.9, ADULT 09/16/2017 TERESA LYNN DO Ot Z79.01 CUSTODIAL (CURRENT) USE OF ANTICOAGULANT 09/16/2017 TERESA LYNN DO Ot Z86.711 PERSONAL HISTORY OF PULMONARY EMBOLISM 09/16/2017 TERESA LYNN DO Ot Z87.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 09/16/2017 TERESA LYNN DO Ot Z91.14 PATIENT'S OTHER NONCOMPLIANCE WITH MEDIC 09/16/2017 LYNN DO, TERESA Ot Z91.81 HISTORY OF FALLING 09/16/2017 LYNN DO, TERESA Ot E66.9 OBESITY, UNSPECIFIED 09/16/2017 YLNN DO, TERESA Ot F11.90 OPIOID USE, UNSPECIFIED, UNCOMPLICATED 09/16/2017 LYNN DO, TERESA Ot F12.90 CANNABIS USE, UNSPECIFIED, UNCOMPLICATED 09/16/2017 LYNN DO, TERESA Ot F17.210 NICOTINE DEPENDENCE, CIGARETTES, UNCOMPL 09/16/2017 LYNN DO TERESA Ot F25.9 SCHIZOAFFECTIVE DISORDER, UNSPECIFIED 09/16/2017 LYNN DO TERESA Ot F31.9 BIPOLAR DISORDER, UNSPECIFIED 09/16/2017 LYNN DO TERESA Ot F41.9 ANXIETY DISORDER, UNSPECIFIED 09/16/2017 LYNN DO TERESA Ot F43.10 POST-TRAUMATIC STRESS DISORDER, UNSPECIF 09/16/2017 LYNN DO TERESA Ot F60.9 PERSONALITY DISORDER, UNSPECIFIED 09/16/2017 LEAH CHRIS TERESA Ot G40.909 EPILEPSY, UNSP, NOT INTRACTABLE, WITHOUT 09/16/2017 LEAH DO TERESA Ot 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 09/16/2017 LEAH CHRIS TERESA Ot J44.9 CHRONIC OBSTRUCTIVE PULMONARY DISEASE, U 09/16/2017 LEAH CHRIS TERESA Ot R09.89 OTH SYMPTOMS AND SIGNS INVOLVING THE CIR 09/16/2017 LEAH DO TERESA Ot R40.0 SOMNOLENCE 09/16/2017 LEAH CHRIS TERESA Ot S30.810A ABRASION OF LOWER BACK AND PELVIS, INITI 09/16/2017 LEAH CHRIS TERESA Ot S40.811A ABRASION OF RIGHT UPPER ARM, INITIAL ENC 09/16/2017 LEAH CHRIS TERESA Ot S40.812A ABRASION OF LEFT UPPER ARM, INITIAL ENCO 09/16/2017 LEAH CHRIS TERESA Ot S50.811A ABRASION OF RIGHT FOREARM, INITIAL ENCOU 09/16/2017 LEAH CHRIS TERESA Ot S50.812A ABRASION OF LEFT FOREARM, INITIAL ENCOUN 09/16/2017 LEAH CHRIS TERESA Ot T43.501A POISONING BY UNSP ANTIPSYCHOT/NEUROLEPT, 09/16/2017 LEAH CHRIS TERESA Ot T68.XXXA HYPOTHERMIA, INITIAL ENCOUNTER 09/16/2017 TERESA LYNN DO Ot W19.XXXA UNSPECIFIED FALL, INITIAL ENCOUNTER 09/16/2017 TERESA LYNN DO Ot Y92.[address] IN RUST NON-INSTITUT (PRIVATE) 09/16/2017 TERESA LYNN DO Ot Y93.K1 ACTIVITY, WALKING AN ANIMAL 09/16/2017 ELIU LYNN DOI Ot Z68.30 BODY MASS INDEX (BMI) 30.0-30.9, ADULT 09/16/2017 TERESA LYNN DO Ot Z79.01 CUSTODIAL (CURRENT) USE OF ANTICOAGULANT 09/16/2017 ELIU LYNN DOI Ot Z86.711 PERSONAL HISTORY OF PULMONARY EMBOLISM 09/16/2017 ELIU LYNN DOI Ot Z87.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 09/16/2017 ELIU LYNN DOI Ot Z91.14 PATIENT'S OTHER NONCOMPLIANCE WITH MEDIC 09/16/2017 ELIU LYNN DOI Ot Z91.81 HISTORY OF FALLING 09/16/2017 ELIU LYNN DOI Ot E66.9 OBESITY, UNSPECIFIED 09/16/2017 LEAH CHRIS TERESA Ot F11.90 OPIOID USE, UNSPECIFIED, UNCOMPLICATED 09/16/2017 LEAH CHRIS TERESA Ot F12.90 CANNABIS USE, UNSPECIFIED, UNCOMPLICATED 09/16/2017 ELIU LYNN DOI Ot F17.210 NICOTINE DEPENDENCE, CIGARETTES, UNCOMPL 09/16/2017 LEAH CHRIS TERESA Ot F25.9 SCHIZOAFFECTIVE DISORDER, UNSPECIFIED 09/16/2017 ELIU LYNN DOI Ot F31.9 BIPOLAR DISORDER, UNSPECIFIED 09/16/2017 ELIU LYNN DOI Ot F41.9 ANXIETY DISORDER, UNSPECIFIED 09/16/2017 LEAH CHRIS TERESA Ot F43.10 POST-TRAUMATIC STRESS DISORDER, UNSPECIF 09/16/2017 ELIU LYNN DOI Ot F60.9 PERSONALITY DISORDER, UNSPECIFIED 09/16/2017 ELIU LYNN DOI Ot G40.909 EPILEPSY, UNS, NOT INTRACTABLE, WITHOUT 09/16/2017 LEAH CHRIS TERESA Ot 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 09/16/2017 LEAH CHRIS TERESA Ot J44.9 CHRONIC OBSTRUCTIVE PULMONARY DISEASE, U 09/16/2017 ELIU LYNN DOI Ot R09.89 OTH SYMPTOMS AND SIGNS INVOLVING THE CIR 09/16/2017 TERESA LYNN DO Ot R40.0 SOMNOLENCE 09/16/2017 TERESA LYNN DO Ot S30.810A ABRASION OF LOWER BACK AND PELVIS, INITI 09/16/2017 ELIU LYNN DOI Ot S40.811A ABRASION OF RIGHT UPPER ARM, INITIAL ENC 09/16/2017 ELIU LYNN DOI Ot S40.812A ABRASION OF LEFT UPPER ARM, INITIAL ENCO 09/16/2017 ELIU LYNN DOI Ot S50.811A ABRASION OF RIGHT FOREARM, INITIAL ENCOU 09/16/2017 ELIU LYNN DOI Ot S50.812A ABRASION OF LEFT FOREARM, INITIAL ENCOUN 09/16/2017 TERESA LYNN DO Ot T43.501A POISONING BY RUST ANTIPSYCHOT/NEUROLEPT, 09/16/2017 TERESA LYNN DO Ot T68.XXXA HYPOTHERMIA, INITIAL ENCOUNTER 09/16/2017 TERESA LYNN DO Ot W19.XXXA UNSPECIFIED FALL, INITIAL ENCOUNTER 09/16/2017 TERESA LYNN DO Ot Y92.[address] IN RUST NON-INSTITUT (PRIVATE) 09/16/2017 TERESA LYNN DO Ot Y93.K1 ACTIVITY, WALKING AN ANIMAL 09/16/2017 TERESA LYNN DO Ot Z68.30 BODY MASS INDEX (BMI) 30.0-30.9, ADULT 09/16/2017 ELIU LYNN DOI Ot Z79.01 TOOL MAKER (CURRENT) USE OF ANTICOAGULANT 09/16/2017 TERESA LYNN DO Ot Z86.711 PERSONAL HISTORY OF PULMONARY EMBOLISM 09/16/2017 TERESA LYNN DO Ot Z87.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 09/16/2017 ELIU LYNN DOI Ot Z91.14 PATIENT'S OTHER NONCOMPLIANCE WITH MEDIC 09/16/2017 ELIU LYNN DOI Ot Z91.81 HISTORY OF FALLING 09/16/2017 ELIU LYNN DOI Ot E66.9 OBESITY, UNSPECIFIED 09/16/2017 ELIU LYNN DOI Ot F11.90 OPIOID USE, UNSPECIFIED, UNCOMPLICATED 09/16/2017 ELIU LYNN DOI Ot F12.90 CANNABIS USE, UNSPECIFIED, UNCOMPLICATED 09/16/2017 LYNN DO, TERESA Ot F17.210 NICOTINE DEPENDENCE, CIGARETTES, UNCOMPL 09/16/2017 LYNN DO, TERESA Ot F25.9 SCHIZOAFFECTIVE DISORDER, UNSPECIFIED 09/16/2017 LEAH CHRIS TERESA Ot F31.9 BIPOLAR DISORDER, UNSPECIFIED 09/16/2017 LYNN DO, TERESA Ot F41.9 ANXIETY DISORDER, UNSPECIFIED 09/16/2017 LEAH CHRIS TERESA Ot F43.10 POST-TRAUMATIC STRESS DISORDER, UNSPECIF 09/16/2017 LEAH CHRIS TERESA Ot F60.9 PERSONALITY DISORDER, UNSPECIFIED 09/16/2017 LEAH CHRIS TERESA Ot G40.909 EPILEPSY, RUST, NOT INTRACTABLE, WITHOUT 09/16/2017 LEAH CHRIS TERESA Ot 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 09/16/2017 LEAH CHRIS TERESA Ot J44.9 CHRONIC OBSTRUCTIVE PULMONARY DISEASE, U 09/16/2017 LEAH CHRIS TERESA Ot R09.89 OTH SYMPTOMS AND SIGNS INVOLVING THE CIR 09/16/2017 LEAH CHRIS TERESA Ot R40.0 SOMNOLENCE 09/16/2017 LEAH CHRIS TERESA Ot S30.810A ABRASION OF LOWER BACK AND PELVIS, INITI 09/16/2017 LEAH CHRIS TERESA Ot S40.811A ABRASION OF RIGHT UPPER ARM, INITIAL ENC 09/16/2017 LEAH CHRIS TERESA Ot S40.812A ABRASION OF LEFT UPPER ARM, INITIAL ENCO 09/16/2017 LEAH CHRIS TERESA Ot S50.811A ABRASION OF RIGHT FOREARM, INITIAL ENCOU 09/16/2017 LEAH CHRIS TERESA Ot S50.812A ABRASION OF LEFT FOREARM, INITIAL ENCOUN 09/16/2017 LEAH CHRIS TERESA Ot T43.501A POISONING BY RUST ANTIPSYCHOT/NEUROLEPT, 09/16/2017 LEAH CHRIS TERESA Ot T68.XXXA HYPOTHERMIA, INITIAL ENCOUNTER 09/16/2017 LEAH CHRIS TERESA Ot W19.XXXA UNSPECIFIED FALL, INITIAL ENCOUNTER 09/16/2017 LEAH CHRIS TERESA Ot Y92.[address] IN RUST NON-INSTITUT (PRIVATE) 09/16/2017 LEAH CHRIS TERESA Ot Y93.K1 ACTIVITY, WALKING AN ANIMAL 09/16/2017 LEAH CHRIS TERESA Ot Z68.30 BODY MASS INDEX (BMI) 30.0-30.9, ADULT 09/16/2017 ELIU LYNN DOI Ot Z79.01 CUSTODIAL (CURRENT) USE OF ANTICOAGULANT 09/16/2017 ELIU LYNN DOI Ot Z86.711 PERSONAL HISTORY OF PULMONARY EMBOLISM 09/16/2017 LEAH CHRIS TERESA Ot Z87.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 09/16/2017 ELIU LYNN DOI Ot Z91.14 PATIENT'S OTHER NONCOMPLIANCE WITH MEDIC 09/16/2017 LEAH CHRIS TERESA Ot Z91.81 HISTORY OF FALLING 09/17/2017 ELIU LYNN DOI Ot E66.9 OBESITY, UNSPECIFIED 09/17/2017 LEAH CHRIS TERESA Ot F11.90 OPIOID USE, UNSPECIFIED, UNCOMPLICATED 09/17/2017 LEAH CHRIS TERESA Ot F12.90 CANNABIS USE, UNSPECIFIED, UNCOMPLICATED 09/17/2017 LEAH CHRIS TERESA Ot F17.210 NICOTINE DEPENDENCE, CIGARETTES, UNCOMPL 09/17/2017 LEAH CHRIS TERESA Ot F25.9 SCHIZOAFFECTIVE DISORDER, UNSPECIFIED 09/17/2017 LEAH CHRIS TERESA Ot F31.9 BIPOLAR DISORDER, UNSPECIFIED 09/17/2017 LEAH CHRIS TERESA Ot F41.9 ANXIETY DISORDER, UNSPECIFIED 09/17/2017 LEAH CHRIS TERESA Ot F43.10 POST-TRAUMATIC STRESS DISORDER, UNSPECIF 09/17/2017 LEAH CHRIS TERESA Ot F60.9 PERSONALITY DISORDER, UNSPECIFIED 09/17/2017 LEAH CHRIS TERESA Ot G40.909 EPILEPSY, UNSP, NOT INTRACTABLE, WITHOUT 09/17/2017 LEAH CHRIS TERESA Ot 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 09/17/2017 LEAH CHRIS TERESA Ot J44.9 CHRONIC OBSTRUCTIVE PULMONARY DISEASE, U 09/17/2017 LEAH CHRIS TERESA Ot R09.89 OTH SYMPTOMS AND SIGNS INVOLVING THE CIR 09/17/2017 LEAH CHRIS TERESA Ot R40.0 SOMNOLENCE 09/17/2017 LEAH CHRIS TERESA Ot S30.810A ABRASION OF LOWER BACK AND PELVIS, INITI 09/17/2017 ELIU LYNN DOI Ot S40.811A ABRASION OF RIGHT UPPER ARM, INITIAL ENC 09/17/2017 TERESA LYNN DO Ot S40.812A ABRASION OF LEFT UPPER ARM, INITIAL ENCO 09/17/2017 TERESA LYNN DO Ot S50.811A ABRASION OF RIGHT FOREARM, INITIAL ENCOU 09/17/2017 TERESA LYNN DO Ot S50.812A ABRASION OF LEFT FOREARM, INITIAL ENCOUN 09/17/2017 TERESA LYNN DO Ot T43.501A POISONING BY RUST ANTIPSYCHOT/NEUROLEPT, 09/17/2017 TERESA LYNN DO Ot T68.XXXA HYPOTHERMIA, INITIAL ENCOUNTER 09/17/2017 TERESA LYNN DO Ot W19.XXXA UNSPECIFIED FALL, INITIAL ENCOUNTER 09/17/2017 TERESA LYNN DO Ot Y92.[address] IN RUST NON-INSTITUT (PRIVATE) 09/17/2017 TERESA LYNN DO Ot Y93.K1 ACTIVITY, WALKING AN ANIMAL 09/17/2017 ELIU LYNN DOI Ot Z68.30 BODY MASS INDEX (BMI) 30.0-30.9, ADULT 09/17/2017 TERESA LYNN DO Ot Z79.01 TOOL MAKER (CURRENT) USE OF ANTICOAGULANT 09/17/2017 ELIU LYNN DOI Ot Z86.711 PERSONAL HISTORY OF PULMONARY EMBOLISM 09/17/2017 ELIU LYNN DOI Ot Z87.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 09/17/2017 ELIU LYNN DOI Ot Z91.14 PATIENT'S OTHER NONCOMPLIANCE WITH MEDIC 09/17/2017 ELIU LYNN DOI Ot Z91.81 HISTORY OF FALLING 09/17/2017 ELIU LYNN DOI Ot E66.9 OBESITY, UNSPECIFIED 09/17/2017 ELIU LYNN DOI Ot F11.90 OPIOID USE, UNSPECIFIED, UNCOMPLICATED 09/17/2017 LEAH CHRIS TERESA Ot F12.90 CANNABIS USE, UNSPECIFIED, UNCOMPLICATED 09/17/2017 ELIU LYNN DOI Ot F17.210 NICOTINE DEPENDENCE, CIGARETTES, UNCOMPL 09/17/2017 ELIU LYNN DOI Ot F25.9 SCHIZOAFFECTIVE DISORDER, UNSPECIFIED 09/17/2017 LEAH CHRIS TERESA Ot F31.9 BIPOLAR DISORDER, UNSPECIFIED 09/17/2017 ELIU LYNN DOI Ot F41.9 ANXIETY DISORDER, UNSPECIFIED 09/17/2017 ELIU LYNN DOI Ot F43.10 POST-TRAUMATIC STRESS DISORDER, UNSPECIF 09/17/2017 TEERSA LYNN DO Ot F60.9 PERSONALITY DISORDER, UNSPECIFIED 09/17/2017 TERESA LYNN DO Ot G40.909 EPILEPSY, RUST, NOT INTRACTABLE, WITHOUT 09/17/2017 TERESA LYNN DO Ot 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 09/17/2017 TERESA LYNN DO Ot J44.9 CHRONIC OBSTRUCTIVE PULMONARY DISEASE, U 09/17/2017 TERESA LYNN DO Ot R09.89 OTH SYMPTOMS AND SIGNS INVOLVING THE CIR 09/17/2017 TERESA LYNN DO Ot R40.0 SOMNOLENCE 09/17/2017 TERESA LYNN DO Ot S30.810A ABRASION OF LOWER BACK AND PELVIS, INITI 09/17/2017 TERESA LYNN DO Ot S40.811A ABRASION OF RIGHT UPPER ARM, INITIAL ENC 09/17/2017 TERESA LYNN DO Ot S40.812A ABRASION OF LEFT UPPER ARM, INITIAL ENCO 09/17/2017 TERESA LYNN DO Ot S50.811A ABRASION OF RIGHT FOREARM, INITIAL ENCOU 09/17/2017 TERESA LYNN DO Ot S50.812A ABRASION OF LEFT FOREARM, INITIAL ENCOUN 09/17/2017 TERESA LYNN DO Ot T43.501A POISONING BY RUST ANTIPSYCHOT/NEUROLEPT, 09/17/2017 TERESA LYNN DO Ot T68.XXXA HYPOTHERMIA, INITIAL ENCOUNTER 09/17/2017 TERESA LYNN DO Ot W19.XXXA UNSPECIFIED FALL, INITIAL ENCOUNTER 09/17/2017 TERESA LYNN DO Ot Y92.[address] IN RUST NON-INSTITUT (PRIVATE) 09/17/2017 TERESA LYNN DO Ot Y93.K1 ACTIVITY, WALKING AN ANIMAL 09/17/2017 TERESA LYNN DO Ot Z68.30 BODY MASS INDEX (BMI) 30.0-30.9, ADULT 09/17/2017 TERESA LYNN DO Ot Z79.01 TOOL MAKER (CURRENT) USE OF ANTICOAGULANT 09/17/2017 TERESA LYNN DO Ot Z86.711 PERSONAL HISTORY OF PULMONARY EMBOLISM 09/17/2017 TERESA LYNN DO Ot Z87.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 09/17/2017 LEAH CHRIS TERESA Ot Z91.14 PATIENT'S OTHER NONCOMPLIANCE WITH MEDIC 09/17/2017 LEAH CHRIS TERESA Ot Z91.81 HISTORY OF FALLING 09/17/2017 LEAH CHRIS TERESA Ot E66.9 OBESITY, UNSPECIFIED 09/17/2017 LYNN DO TERESA Ot F11.90 OPIOID USE, UNSPECIFIED, UNCOMPLICATED 09/17/2017 LYNN DO, TERESA Ot F12.90 CANNABIS USE, UNSPECIFIED, UNCOMPLICATED 09/17/2017 LEAH CHRIS TERESA Ot F17.210 NICOTINE DEPENDENCE, CIGARETTES, UNCOMPL 09/17/2017 LEAH CHRIS TERESA Ot F25.9 SCHIZOAFFECTIVE DISORDER, UNSPECIFIED 09/17/2017 LEAH CHRIS TERESA Ot F31.9 BIPOLAR DISORDER, UNSPECIFIED 09/17/2017 LEAH CHRIS TERESA Ot F41.9 ANXIETY DISORDER, UNSPECIFIED 09/17/2017 LEAH CHRIS TERESA Ot F43.10 POST-TRAUMATIC STRESS DISORDER, UNSPECIF 09/17/2017 LEAH CHRIS TERESA Ot F60.9 PERSONALITY DISORDER, UNSPECIFIED 09/17/2017 LEAH CHRIS TERESA Ot G40.909 EPILEPSY, UNSP, NOT INTRACTABLE, WITHOUT 09/17/2017 LEAH CHRIS TERESA Ot 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 09/17/2017 LEAH CHRIS TERESA Ot J44.9 CHRONIC OBSTRUCTIVE PULMONARY DISEASE, U 09/17/2017 LEAH CHRIS TERESA Ot R09.89 OTH SYMPTOMS AND SIGNS INVOLVING THE CIR 09/17/2017 LEAH CHRIS TERESA Ot R40.0 SOMNOLENCE 09/17/2017 LEAH CHRIS TERESA Ot S30.810A ABRASION OF LOWER BACK AND PELVIS, INITI 09/17/2017 LEAH CHRIS TERESA Ot S40.811A ABRASION OF RIGHT UPPER ARM, INITIAL ENC 09/17/2017 LEAH CHRIS TERESA Ot S40.812A ABRASION OF LEFT UPPER ARM, INITIAL ENCO 09/17/2017 LEAH CHRIS TERESA Ot S50.811A ABRASION OF RIGHT FOREARM, INITIAL ENCOU 09/17/2017 LEAH CHRIS TERESA Ot S50.812A ABRASION OF LEFT FOREARM, INITIAL ENCOUN 09/17/2017 LEAH CHRIS TERESA Ot T43.501A POISONING BY UNSP ANTIPSYCHOT/NEUROLEPT, 09/17/2017 TERESA LYNN DO Ot T68.XXXA HYPOTHERMIA, INITIAL ENCOUNTER 09/17/2017 TERESA LYNN DO Ot W19.XXXA UNSPECIFIED FALL, INITIAL ENCOUNTER 09/17/2017 TERESA LYNN DO Ot Y92.[address] IN RUST NON-INSTITUT (PRIVATE) 09/17/2017 TERESA LYNN DO Ot Y93.K1 ACTIVITY, WALKING AN ANIMAL 09/17/2017 ELIU LYNN DOI Ot Z68.30 BODY MASS INDEX (BMI) 30.0-30.9, ADULT 09/17/2017 ELIU LYNN DOI Ot Z79.01 TOOL MAKER (CURRENT) USE OF ANTICOAGULANT 09/17/2017 ELIU LYNN DOI Ot Z86.711 PERSONAL HISTORY OF PULMONARY EMBOLISM 09/17/2017 ELIU LYNN DOI Ot Z87.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 09/17/2017 ELIU LYNN DOI Ot Z91.14 PATIENT'S OTHER NONCOMPLIANCE WITH MEDIC 09/17/2017 ELIU LYNN DOI Ot Z91.81 HISTORY OF FALLING 09/17/2017 ELIU LYNN DOI Ot E66.9 OBESITY, UNSPECIFIED 09/17/2017 ELIU LYNN DOI Ot F11.90 OPIOID USE, UNSPECIFIED, UNCOMPLICATED 09/17/2017 ELIU LYNN DOI Ot F12.90 CANNABIS USE, UNSPECIFIED, UNCOMPLICATED 09/17/2017 LEAH CHRIS TERESA Ot F17.210 NICOTINE DEPENDENCE, CIGARETTES, UNCOMPL 09/17/2017 ELIU LYNN DOI Ot F25.9 SCHIZOAFFECTIVE DISORDER, UNSPECIFIED 09/17/2017 LEAH CHRIS TERESA Ot F31.9 BIPOLAR DISORDER, UNSPECIFIED 09/17/2017 LEAH CHRIS TERESA Ot F41.9 ANXIETY DISORDER, UNSPECIFIED 09/17/2017 ELIU LYNN DOI Ot F43.10 POST-TRAUMATIC STRESS DISORDER, UNSPECIF 09/17/2017 ELIU LYNN DOI Ot F60.9 PERSONALITY DISORDER, UNSPECIFIED 09/17/2017 LEAH CHRIS TERESA Ot G40.909 EPILEPSY, RUST, NOT INTRACTABLE, WITHOUT 09/17/2017 LEAH CHRIS TERESA Ot 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 09/17/2017 TERESA LYNN DO Ot J44.9 CHRONIC OBSTRUCTIVE PULMONARY DISEASE, U 09/17/2017 TERESA LYNN DO Ot R09.89 OTH SYMPTOMS AND SIGNS INVOLVING THE CIR 09/17/2017 TERESA LYNN DO Ot R40.0 SOMNOLENCE 09/17/2017 TERESA LYNN DO Ot S30.810A ABRASION OF LOWER BACK AND PELVIS, INITI 09/17/2017 TERESA LYNN DO Ot S40.811A ABRASION OF RIGHT UPPER ARM, INITIAL ENC 09/17/2017 TERESA LYNN DO Ot S40.812A ABRASION OF LEFT UPPER ARM, INITIAL ENCO 09/17/2017 TERESA LYNN DO Ot S50.811A ABRASION OF RIGHT FOREARM, INITIAL ENCOU 09/17/2017 TERESA LYNN DO Ot S50.812A ABRASION OF LEFT FOREARM, INITIAL ENCOUN 09/17/2017 TERESA LYNN DO Ot T43.501A POISONING BY RUST ANTIPSYCHOT/NEUROLEPT, 09/17/2017 TERESA LYNN DO Ot T68.XXXA HYPOTHERMIA, INITIAL ENCOUNTER 09/17/2017 TERESA LYNN DO Ot W19.XXXA UNSPECIFIED FALL, INITIAL ENCOUNTER 09/17/2017 TERESA LYNN DO Ot Y92.[address] IN RUST NON-INSTITUT (PRIVATE) 09/17/2017 TERESA LYNN DO Ot Y93.K1 ACTIVITY, WALKING AN ANIMAL 09/17/2017 TERESA LYNN DO Ot Z68.30 BODY MASS INDEX (BMI) 30.0-30.9, ADULT 09/17/2017 TERESA LYNN DO Ot Z79.01 CUSTODIAL (CURRENT) USE OF ANTICOAGULANT 09/17/2017 TERESA LYNN DO Ot Z86.711 PERSONAL HISTORY OF PULMONARY EMBOLISM 09/17/2017 TERESA LYNN DO Ot Z87.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 09/17/2017 TERESA LYNN DO Ot Z91.14 PATIENT'S OTHER NONCOMPLIANCE WITH MEDIC 09/17/2017 TERESA LYNN DO Ot Z91.81 HISTORY OF FALLING 10/28/2017 LAI CARDENAS 345.90 EPILEPSY, UNSPECIFIED, WITHOUT MENTION OF INTRACTABLE EPILEPSY 10/28/2017 LAI CARDENAS 802.9 OTHER FACIAL BONES OPEN FRACTURE 10/28/2017 THERESAPRINCESSLAI W 873.42 OPEN WOUND OF FOREHEAD, UNCOMPLICATED 10/28/2017 THERESAPRINCESSLAI A G40.909 EPILEPSY, UNSP, NOT INTRACTABLE, WITHOUT STATUS EPILEPTICUS 10/28/2017 RETAAVLAI Karla S01.81XA LACERATION W/O FOREIGN BODY OF OTH PART OF HEAD, INIT ENCNTR 10/28/2017 RETATISHLAI DAVIS Karla S02.81XA FRACTURE OF OTH SKULL AND FACIAL BONES, RIGHT SIDE, INIT Procedures Code Description Performed By Performed On 33.24 ENDOSCOPIC BRONCHIAL BX 09/28/2014 [id number] INSERT INFUSION DEV IN L EXT JUGULAR VEI 09/11/2017 Results Test Result Range Whole blood basic [...] plasma calcium measurement (mass/volume) 10.2 mg/dL 8.5-10.1 Anaerobic and Aerobic Culture - 07/04/16 18:26 Anaerobic and Aerobic Culture Note Complete blood count (CBC) with automated white [...] culture - 08/17/17 11:51 Bacterial urine culture [id number] NRG COLONY COUNT <10,000 NRG FTX;REPORTABLE PLUS, [...] urinalysis with reflex to culture NO NRG Methicillin resistant Staphylococcus aureus (MRSA) screening culture - 13:08 Methicillin resistant Staphylococcus aureus (MRSA) screening culture NEG NRG Capillary blood glucose measurement by glucometer (mass/volume) - 09/11/17 22: 22 Capillary blood glucose measurement by glucometer (mass/volume) 121 mg/dL 70-110 Complete blood count (CBC) with automated white blood cell (WBC) differential - 09/12/17 03:36 Blood leukocytes automated count (number/volume) 8.1 10*3/uL 4.3-11.0 Blood erythrocytes automated count (number/volume) 3.82 10*6/uL 4.35-5.85 Venous blood hemoglobin measurement (mass/volume) 12.0 g/dL 11.5-16.0 Blood hematocrit (volume fraction) 36 % 35-52 Automated erythrocyte mean corpuscular volume 94 [foz_us] 80-99 Automated erythrocyte mean corpuscular hemoglobin (mass per erythrocyte) 31 pg 25-34 Automated erythrocyte mean corpuscular hemoglobin concentration measurement ( mass/volume) 34 g/dL 32-36 Automated erythrocyte distribution width ratio 13.2 % 10.0-14.5 Automated blood platelet count (count/volume) 305 10*3/uL 130-400 Automated blood platelet mean volume measurement 10.0 [foz_us] 7.4-10.4 Automated blood neutrophils/100 leukocytes 58 % 42-75 Automated blood lymphocytes/100 leukocytes 29 % 12-44 Blood monocytes/100 leukocytes 10 % 0-12 Automated blood eosinophils/100 leukocytes 2 % 0-10 Automated blood basophils/100 leukocytes 0 % 0-10 Blood neutrophils automated count (number/volume) 4.7 10*3 1.8-7.8 Blood lymphocytes automated count (number/volume) 2.4 10*3 1.0-4.0 Blood monocytes automated count (number/volume) 0.8 10*3 0.0-1.0 Automated eosinophil count 0.2 10*3/uL 0.0-0.3 Automated blood basophil count (count/volume) 0.0 10*3/uL 0.0-0.1 Comprehensive metabolic panel - 09/12/17 03:36 Serum or plasma sodium measurement (moles/volume) 142 mmol/L 135-145 Serum or plasma potassium measurement (moles/volume) 3.3 mmol/L 3.6-5.0 Serum or plasma chloride measurement (moles/volume) 110 mmol/L 98-107 Carbon dioxide 23 mmol/L 21-32 Serum or plasma anion gap determination (moles/volume) 9 mmol/L 5-14 Serum or plasma urea nitrogen measurement (mass/volume) 5 mg/dL 7-18 Serum or plasma creatinine measurement (mass/volume) 0.71 mg/dL 0.60-1.30 Serum or plasma urea nitrogen/creatinine mass ratio 7 NRG Serum or plasma creatinine measurement with calculation of estimated glomerular filtration rate > NRG Serum or plasma glucose measurement (mass/volume) 92 mg/dL 70-105 Serum or plasma calcium measurement (mass/volume) 8.1 mg/dL 8.5-10.1 Serum or plasma total bilirubin measurement (mass/volume) 0.5 mg/dL 0.1-1.0 Serum or plasma alkaline phosphatase measurement (enzymatic activity/volume) 66 U/L 40-136 Serum or plasma aspartate aminotransferase measurement (enzymatic activity/ volume) 36 U/L 5-34 Serum or plasma alanine aminotransferase measurement (enzymatic activity/volume ) 18 U/L 0-55 Serum or plasma protein measurement (mass/volume) 5.4 g/dL 6.4-8.2 Serum or plasma albumin measurement (mass/volume) 3.3 g/dL 3.2-4.5 Magnesium - 09/12/17 03:36 Magnesium 2.2 mg/dL 1.8-2.4 Complete blood count (CBC) with automated white blood cell (WBC) differential - 09/13/17 06:07 Blood leukocytes automated count (number/volume) 6.9 10*3/uL 4.3-11.0 Blood erythrocytes automated count (number/volume) 3.90 10*6/uL 4.35-5.85 Venous blood hemoglobin measurement (mass/volume) 12.1 g/dL 11.5-16.0 Blood hematocrit (volume fraction) 37 % 35-52 Automated erythrocyte mean corpuscular volume 95 [foz_us] 80-99 Automated erythrocyte mean corpuscular hemoglobin (mass per erythrocyte) 31 pg 25-34 Automated erythrocyte mean corpuscular hemoglobin concentration measurement ( mass/volume) 33 g/dL 32-36 Automated erythrocyte distribution width ratio 13.9 % 10.0-14.5 Automated blood platelet count (count/volume) 322 10*3/uL 130-400 Automated blood platelet mean volume measurement 9.6 [foz_us] 7.4-10.4 Automated blood neutrophils/100 leukocytes 50 % 42-75 Automated blood lymphocytes/100 leukocytes 35 % 12-44 Blood monocytes/100 leukocytes 12 % 0-12 Automated blood eosinophils/100 leukocytes 3 % 0-10 Automated blood basophils/100 leukocytes 0 % 0-10 Blood neutrophils automated count (number/volume) 3.5 10*3 1.8-7.8 Blood lymphocytes automated count (number/volume) 2.4 10*3 1.0-4.0 Blood monocytes automated count (number/volume) 0.8 10*3 0.0-1.0 Automated eosinophil count 0.2 10*3/uL 0.0-0.3 Automated blood basophil count (count/volume) 0.0 10*3/uL 0.0-0.1 Comprehensive metabolic panel - 09/13/17 06:07 Serum or plasma sodium measurement (moles/volume) 142 mmol/L 135-145 Serum or plasma potassium measurement (moles/volume) 3.8 mmol/L 3.6-5.0 Serum or plasma chloride measurement (moles/volume) 109 mmol/L 98-107 Carbon dioxide 26 mmol/L 21-32 Serum or plasma anion gap determination (moles/volume) 7 mmol/L 5-14 Serum or plasma urea nitrogen measurement (mass/volume) 4 mg/dL 7-18 Serum or plasma creatinine measurement (mass/volume) 0.68 mg/dL 0.60-1.30 Serum or plasma urea nitrogen/creatinine mass ratio 6 NRG Serum or plasma creatinine measurement with calculation of estimated glomerular filtration rate > NRG Serum or plasma glucose measurement (mass/volume) 93 mg/dL 70-105 Serum or plasma calcium measurement (mass/volume) 8.5 mg/dL 8.5-10.1 Serum or plasma total bilirubin measurement (mass/volume) 0.3 mg/dL 0.1-1.0 Serum or plasma alkaline phosphatase measurement (enzymatic activity/volume) 65 U/L 40-136 Serum or plasma aspartate aminotransferase measurement (enzymatic activity/ volume) 30 U/L 5-34 Serum or plasma alanine aminotransferase measurement (enzymatic activity/volume ) 18 U/L 0-55 Serum or plasma protein measurement (mass/volume) 5.8 g/dL 6.4-8.2 Serum or plasma albumin measurement (mass/volume) 3.5 g/dL 3.2-4.5 Acetaminophen - 10/28/17 07:40 Acetamin <0 ug/mL 10-30 Salicylate - 10/28/17 07:40 Salicylate <50 mg/L 0-300 Rapid Drug Screen + ETOH,Medical - 10/28/17 08:38 Amphetamine NEGATIVE NEGATIVE Barbiturates NEGATIVE NEGATIVE Benzodiazepines NEGATIVE NEGATIVE Cocaine NEGATIVE NEGATIVE Ethanol, Urine <10.00 mg/dL 20.00-80.00 Marijuana NEGATIVE NEGATIVE Methylenedioxymethamphetamine NEGATIVE NEGATIVE Opiates NEGATIVE NEGATIVE Oxycodone NEGATIVE NEGATIVE Phencyclidine NEGATIVE NEGATIVE Propoxyphene NEGATIVE NEGATIVE Tricyclic Antidepressant POSITIVE NEGATIVE EKG - 10/28/17 09:45 EKG Complete Encounters ACCT No. Visit Date/Time Discharge Status Pt. Type Provider Facility Loc./Unit Complaint [id number] 01/12/2018 09:51:00 01/12/2018 23:59:59 CLS Preadmit CAROLINA LANDEROS MD [facility] RAD SCREENING [id number] 09/11/2017 08:02:00 09/17/2017 11:58:00 DIS Inpatient LEAH CHRIS TERESA [facility] 4TH CHI,HYPOTHERMIA,NO CHANGE IN MENTATION [id number] 08/17/2017 11:50:00 08/18/2017 16:30:00 DIS Inpatient DELVIN RHODES MD [facility] ICU ACUTE PSYCHOSIS, SEIZURES AND BIPOLAR. [id number] 04/14/2017 14:45:00 04/14/2017 23:59:59 CLS Preadmit OTHER, UNLISTED [facility] RAD SCREENING [id number] 01/31/2017 10:48:00 01/31/2017 23:59:59 CLS Preadmit OTHER, UNLISTED [facility] RAD SCREENING Z12.31 [id number] 12/24/2016 03:40:00 12/24/2016 15:40:00 DIS Inpatient LYNN DO, TERESA [facility] ICU UNRESPONSIVE [id number] 08/30/2016 17:27:00 08/30/2016 23:59:59 CLS Emergency JAYNE LANDON CHRIS [facility] ER BACK PAIN, SHINGLES [id number] 07/12/2016 20:41:00 07/18/2016 17:05:00 DIS Inpatient LIZ CROWLEY MD [facility] 4TH BILATERAL PE,AMS, PNEUMONIA [id number] 02/28/2016 14:02:00 02/28/2016 23:59:59 CLS Outpatient MASSIMO BOYD MOLD MAKER PLASTIC MOLDS [facility] RAD G50.0 [id number] 02/10/2015 18:38:00 02/10/2015 23:59:59 CLS Emergency HUMAIRA HARVEY APRN [facility] ER DENTAL PAIN [id number] 01/06/2015 14:23:00 01/06/2015 16:28:00 DIS Emergency HUMAIRA HARVEY SUPERVISOR LEAD BURNING [facility] ER LEFT FOOT/ANKLE/LEG PAIN [id number] 09/30/2014 08:09:00 10/05/2014 12:05:00 DIS Inpatient ANG MELO MD [facility] SURGICAL SWB-Pneumonia [id number] 09/27/2014 14:16:00 09/30/2014 07:58:00 DIS Inpatient ANG MELO MD [facility] SURGICAL PNEUMONIA RUL [id number] 06/09/2014 12:40:00 06/09/2014 19:38:00 DIS Emergency KAMRON SY MD [facility] ER BLOOD IN STOOL [id number] 08/20/2016 10:57:00 Document Registration [id number] 07/02/2014 20:44:00 Document Registration [id number] 07/09/2016 14:10:00 Document Registration [id number] 10/28/2017 07:26:00 10/28/2017 13:05:00 DIS Outpatient [facility] ER [id number] 10/28/2017 08:40:58 Document Registration
[2018-01-25] MEDS ORDERED: KETOROLAC 30 MG/ML VIAL IVP ONE ×2 (20:15→21:30)
[2018-01-25 20:25] LABS: BILIRUBIN,URINE NEGATIVE (NEGATIVE); CLARITY,URINE SLIGHTLY CLOUDY; COLOR,URINE YELLOW; GLUCOSE, URINE (UA) NEGATIVE (NEGATIVE); KETONES,URINE 1+ (NEGATIVE); LEUKOCYTE ESTERASE ,URINE NEGATIVE (NEGATIVE); NITRITE,URINE NEGATIVE (NEGATIVE); PH,URINE 6.5 (5-9); PROTEIN,URINE 2+ (NEGATIVE); UROBILINOGEN,URINE NORMAL (NORMAL)
--- NOTE | 2018-01-25 20:45 | ED Back Pain ---
General Chief Complaint: Back Problems Stated Complaint: BACK PAIN Nursing Triage Note: PT BROUGHT IN BY EMS WITH COMPLAINT OF NEW ONSET OF BACK PAIN. Nursing Sepsis Screen: No Definite Risk Source of Information: Patient Exam Limitations: No Limitations History of Present Illness Date Seen by Provider: Jan 25, 2018 Time Seen by Provider: 20:42 Initial Comments To ER per EMS as a sudden onset severe left flank pain earlier this evening about 1-2 hours ago. Location: Lumbar Spine Timing/Duration: 1-2 Days Severity: Moderate Pain/Injury Location: None Allergies and Home Medications Allergies Coded Allergies: No Known Drug Allergies (Unverified , 06/09/14) Home Medications Amitriptyline HCl 75 Mg Tablet, 150 MG PO HS, (Reported) TAKES 2 (75 MG) TABLETS Apixaban 2.5 Mg Tablet, 2.5 MG PO BID, (Reported) Atorvastatin Calcium 40 Mg Tablet, 20 MG PO HS, (Reported) TAKES 1/2 (40MG) TABLET Clonazepam 1 Mg Tablet, 1 MG PO DAILY PRN for ANXIETY, (Reported) Docusate Sodium 100 Mg Capsule, 100 MG PO BID PRN for CONSTIPATION-1ST LINE, ( Reported) Fluticasone/Salmeterol 12 Gm Hfa.aer.ad, 2 PUFF IH RTBID Prescribed by: IRA HOPKINS on 09/17/17 0804 Gabapentin 600 Mg Tablet, 1,200 MG PO TID, (Reported) TAKES 2 (600 MG) TABLETS Lamotrigine 200 Mg Tablet, 200 MG PO BID, (Reported) Patient Home Medication List Home Medication List Reviewed: Yes Review of Systems Constitutional: see HPI; No chills EENTM: see HPI Respiratory: no symptoms reported Cardiovascular: no symptoms reported Genitourinary: no symptoms reported Musculoskeletal: see HPI, back pain Skin: no symptoms reported Psychiatric/Neurological: No Symptoms Reported Past Rqkdheb-Babroe-Cbqsku Hx Patient Social History Alcohol Use: Denies Use Recreational Drug Use: No Drug of Choice: MARIJUANA, opioids Smoking Status: Current Everyday Smoker Type Used: Cigarettes Recent Foreign Travel: No Contact w/Someone Who Travel: No Recent Infectious Disease Expo: No Recent Hopitalizations: No Immunizations Up To Date Tetanus Booster (TDap): Less than 5yrs Seasonal Allergies Seasonal Allergies: No Past Medical History Surgeries: Yes (FACE) Section, Orthopedic, Tubal Ligation Respiratory: Yes (BILATERAL P.E. 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 Genitourinary: No Gastrointestinal: No Musculoskeletal: Yes (FACIAL PAIN) Chronic Back Pain Endocrine: No HEENT: No Cancer: No Psychosocial: Yes Anxiety, PTSD, Bipolar, Personality Disorder, Schizophrenia, Depression Integumentary: No Blood Disorders: No Family Medical History Alcoholism 19 FATHER Arthritis 19 MOTHER FH: bipolar disorder No Pertinent Family Hx, Psychiatric Problems Physical Exam Vital Signs Vital Signs - First Documented 01/25/18 19:51 Temp 97.3 Pulse 78 Resp 17 B/P (MAP) 121/93 (102) Pulse Ox 96 O2 Delivery Room Air Capillary Refill : Less Than 3 Seconds Height, Weight, BMI Height: 5'8.00" Weight: 190lbs. 0.0oz. 86.560576en; 30.3 BMI Method:Stated General Appearance: No Apparent Distress, WD/WN HEENT: PERRL/EOMI, TMs Normal, Normal ENT Inspection Neck: Full Range of Motion, Normal Inspection Respiratory: No Accessory Muscle Use, No Respiratory Distress Gastrointestinal: Normal Bowel Sounds, Non Tender, Soft Back: Normal Inspection, Other (No rash erythema or vesicles) Extremity: Normal Capillary Refill, Normal Inspection Neurologic/Psychiatric: Alert, Oriented x3 Skin: Normal Color, Warm/Dry Progress/Results/Core Measures Results/Orders Lab Results Laboratory Tests Test 01/25/18 20:00 01/25/18 20:52 Range/Units Urine Color YELLOW Urine Clarity SLIGHTLY CLOUDY Urine pH 6.5 5-9 Urine Specific [place] 1.015 L 1.016-1.022 Urine Protein 2+ H NEGATIVE Urine Glucose (UA) NEGATIVE NEGATIVE Urine Ketones 1+ H NEGATIVE Urine Nitrite NEGATIVE NEGATIVE Urine Bilirubin NEGATIVE NEGATIVE Urine Urobilinogen NORMAL NORMAL MG/DL Urine Leukocyte Esterase NEGATIVE NEGATIVE Urine RBC (Auto) NEGATIVE NEGATIVE Urine RBC NONE /HPF Urine WBC 0-2 /HPF Urine Squamous Epithelial Cells 10-25 H /HPF Urine Renal Epithelial Cells 0-2 /HPF Urine Crystals NONE /LPF Urine Bacteria FEW H /HPF Urine Casts PRESENT /LPF Urine Hyaline Casts 0-2 H /LPF Urine Mucus NEGATIVE /LPF Urine Yeast MODERATE H /HPF Urine Culture Indicated NO Urine Opiates Screen NEGATIVE NEGATIVE Urine Oxycodone Screen NEGATIVE NEGATIVE Urine Methadone Screen NEGATIVE NEGATIVE Urine Propoxyphene Screen NEGATIVE NEGATIVE Urine Barbiturates Screen NEGATIVE NEGATIVE Ur Tricyclic Antidepressants Screen POSITIVE H NEGATIVE Urine Phencyclidine Screen NEGATIVE NEGATIVE Urine Amphetamines Screen NEGATIVE NEGATIVE Urine Methamphetamines Screen NEGATIVE NEGATIVE Urine Benzodiazepines Screen NEGATIVE NEGATIVE Urine Cocaine Screen NEGATIVE NEGATIVE Urine Cannabinoids Screen NEGATIVE NEGATIVE White Blood Count 11.3 H 4.3-11.0 10^3/uL Red Blood Count 4.53 4.35-5.85 10^6/uL Hemoglobin 14.0 11.5-16.0 G/DL Hematocrit 42 35-52 % Mean Corpuscular Volume 93 80-99 FL Mean Corpuscular Hemoglobin 31 25-34 PG Mean Corpuscular Hemoglobin Concent 33 32-36 G/DL Red Cell Distribution Width 13.9 10.0-14.5 % Platelet Count 362 130-400 10^3/uL Mean Platelet Volume 9.3 7.4-10.4 FL Neutrophils (%) (Auto) 76 H 42-75 % Lymphocytes (%) (Auto) 16 12-44 % Monocytes (%) (Auto) 7 0-12 % Eosinophils (%) (Auto) 1 0-10 % Basophils (%) (Auto) 0 0-10 % Neutrophils # (Auto) 8.6 H 1.8-7.8 X 10^3 Lymphocytes # (Auto) 1.8 1.0-4.0 X 10^3 Monocytes # (Auto) 0.8 0.0-1.0 X 10^3 Eosinophils # (Auto) 0.1 0.0-0.3 10^3/uL Basophils # (Auto) 0.0 0.0-0.1 10^3/uL Sodium Level 136 135-145 MMOL/L Potassium Level 3.6 3.6-5.0 MMOL/L Chloride Level 101 98-107 MMOL/L Carbon Dioxide Level 22 21-32 MMOL/L Anion Gap 13 5-14 MMOL/L Blood Urea Nitrogen 6 L 7-18 MG/DL Creatinine 0.86 0.60-1.30 MG/DL Estimat Glomerular Filtration Rate > 60 BUN/Creatinine Ratio 7 Glucose Level 103 70-105 MG/DL Calcium Level 9.2 8.5-10.1 MG/DL Corrected Calcium 9.2 8.5-10.1 MG/DL Total Bilirubin 0.5 0.1-1.0 MG/DL Aspartate Amino Transf (AST/SGOT) 14 5-34 U/L Alanine Aminotransferase (ALT/SGPT) 12 0-55 U/L Alkaline Phosphatase 88 40-136 U/L Total Protein 6.9 6.4-8.2 GM/DL Albumin 4.0 3.2-4.5 GM/DL My Orders Orders - HUMAIRA HARVEY APRN Cbc With Automated Diff (01/25/18 20:04) Comprehensive Metabolic Panel (01/25/18 20:04) Ua Culture If Indicated (01/25/18 20:04) Chest 1 View, Ap/Pa Only (01/25/18 20:04) Ct Abd/Pelvis Wo(Kidney Stone) (01/25/18 20:04) Iv Heplock-Insert (Order) (01/25/18 20:04) Ketorolac Injection (Toradol Injection) (01/25/18 20:15) Drug Screen Stat (Urine) (01/25/18 21:16) Ketorolac Injection (Toradol Injection) (01/25/18 21:30) Orphenadrine Injection (Norflex Injectio (01/25/18 21:30) Medications Given in ED Current Medications Medications Dose Ordered Sig/Christian Route Start Time Stop Time Status Last Admin Dose Admin Ketorolac Tromethamine 30 mg ONCE ONCE IVP 01/25/18 20:15 01/25/18 20:16 DC 01/25/18 20:27 30 MG Vital Signs/I&O 01/25/18 19:51 Temp 97.3 Pulse 78 Resp 17 B/P (MAP) 121/93 (102) Pulse Ox 96 O2 Delivery Room Air Blood Pressure Mean: 102 Diagnostic Imaging Diagonstic Imaging: CT Comments NAME: RENATO NEGRON [facility] REC#: [id number] PT STATUS: REG ER : 1965 PHYSICIAN: HUMAIRA HARVEY APRN ADMIT DATE: 01/25/18/ER Draft Date of Exam:01/25/18 CT ABD/PELVIS WO(KIDNEY STONE) PROCEDURE: CT urinary tract, rule out kidney stone. TECHNIQUE: Multiple contiguous axial images were obtained through the abdomen and pelvis without the use of intravenous contrast. INDICATION: Low back pain. COMPARISON: Prior CT from 09/11/2017. FINDINGS: The lung bases demonstrate some minimal atelectasis or scarring in the right middle lobe and bilateral lower lobes. The liver and gallbladder are unremarkable. The pancreas and spleen are unremarkable. No adrenal mass is seen. There is a tiny approximately 1-2 mm nonobstructing calculus in the upper pole of the left kidney. No ureteral calculi or hydronephrosis is seen. The bladder is unremarkable. Small and large bowel loops are normal caliber. There is moderate stool in the colon. The appendix is visualized and unremarkable. There is no ascites. Bladder and uterus are unremarkable. The bony structures are nonacute. IMPRESSION: 1. Tiny nonobstructing left renal calculus. No ureteral calculi or hydronephrosis is seen. 2. Moderate stool in the colon suggestive of constipation. 3. No acute abnormality is identified. Dictated on workstation # [id number] Dict: 01/25/182048 Trans: 01/25/182052 [facility] [id number] Interpreted by: ANTOINE KING MD Electronically signed by: Departure Impression Primary Impression: Left flank discomfort Disposition: HOME, SELF-CARE Condition: Stable Departure-Patient Inst. Decision time for Depature: 21:48 Referrals: [facility] [place] (PCP/Family) Primary Care Physician Patient Instructions: Lumbar Muscle Strain (DC) Add. Discharge Instructions: 1. Return to ER for any concerns All discharge instructions reviewed with patient and/or family. Voiced understanding. Scripts Cyclobenzaprine HCl (Cyclobenzaprine HCl) 5 Mg Tablet 5 MG PO TID PRN for PAIN-MILD TO MODERATE, #14 TAB Prov: HUMAIRA HARVEY SOFTWARE VALIDATION ENGINEER 01/25/18 HUMAIRA HARVEY APRN Jan 25, 2018 20:45
[2018-01-25 20:48] LABS: BACTERIA,URINE FEW /HPF; RENAL EPITHELIAL CELLS,URINE 0-2 /HPF; WBC,URINE 0-2 /HPF
[2018-01-25 20:49] LABS: HYALINE CASTS, URINE 0-2 /LPF
[2018-01-25 20:50] LABS: YEAST,URINE MODERATE /HPF
--- NOTE | 2018-01-25 20:52 | Diagnostic Imaging Report ---
INDICATION: Low back pain. TIME OF EXAM: 8:39 p.m. EXAMINATION: Single view of the chest was obtained. COMPARISON: Correlation is made with prior study from 09/14/2017. FINDINGS: The heart size is normal. The pulmonary vascularity is unremarkable. The lungs are clear. No infiltrate, effusion or pneumothorax is detected. IMPRESSION: No acute cardiopulmonary process is detected. Dictated by: Dictated on workstation # [id number]
--- NOTE | 2018-01-25 20:54 | Diagnostic Imaging Report ---
PROCEDURE: CT urinary tract, rule out kidney stone. TECHNIQUE: Multiple contiguous axial images were obtained through the abdomen and pelvis without the use of intravenous contrast. INDICATION: Low back pain. COMPARISON: Prior CT from 09/11/2017. FINDINGS: The lung bases demonstrate some minimal atelectasis or scarring in the right middle lobe and bilateral lower lobes. The liver and gallbladder are unremarkable. The pancreas and spleen are unremarkable. No adrenal mass is seen. There is a tiny approximately 1-2 mm nonobstructing calculus in the upper pole of the left kidney. No ureteral calculi or hydronephrosis is seen. The bladder is unremarkable. Small and large bowel loops are normal caliber. There is moderate stool in the colon. The appendix is visualized and unremarkable. There is no ascites. Bladder and uterus are unremarkable. The bony structures are nonacute. IMPRESSION: 1. Tiny nonobstructing left renal calculus. No ureteral calculi or hydronephrosis is seen. 2. Moderate stool in the colon suggestive of constipation. 3. No acute abnormality is identified. Dictated by: Dictated on workstation # [id number]
[2018-01-25 20:58] LABS: BASOPHILS % (AUTO) 0 % (0-10); EOSINOPHILS # (AUTO) 0.1 10^3/uL (0.0-0.3); EOSINOPHILS % (AUTO) 1 % (0-10); HEMATOCRIT 42 % (35-52); LYMPHOCYTES # (AUTO) 1.8 X 10^3 (1.0-4.0); LYMPHOCYTES % (AUTO) 16 % (12-44); MEAN CORPUSCULAR HEMOGLOBIN 31 PG (25-34); MEAN CORPUSCULAR HGB CONC 33 G/DL (32-36); MEAN CORPUSCULAR VOLUME 93 FL (80-99); MEAN PLATELET VOLUME 9.3 FL (7.4-10.4); MONOCYTES # (AUTO) 0.8 X 10^3 (0.0-1.0); MONOCYTES % (AUTO) 7 % (0-12); NEUTROPHILS # (AUTO) 8.6 X 10^3 (1.8-7.8); NEUTROPHILS % (AUTO) 76 % (42-75); PLATELET COUNT 362 10^3/uL (130-400); RED BLOOD COUNT 4.53 10^6/uL (4.35-5.85); RED CELL DISTRIBUTION WIDTH 13.9 % (10.0-14.5); WHITE BLOOD COUNT 11.3 10^3/uL (4.3-11.0)
[2018-01-25 21:16] LABS: ALANINE AMINOTRANSFERASE 12 U/L (0-55); ALKALINE PHOSPHATASE 88 U/L (40-136); BILIRUBIN,TOTAL 0.5 MG/DL (0.1-1.0); BUN/CREATININE RATIO 7; CALCIUM 9.2 MG/DL (8.5-10.1); CARBON DIOXIDE 22 MMOL/L (21-32); CHLORIDE 101 MMOL/L (98-107); CREATININE SERUM 0.86 MG/DL (0.60-1.30); GFR ESTIMATED > 60; GLUCOSE 103 MG/DL (70-105); POTASSIUM 3.6 MMOL/L (3.6-5.0); SODIUM 136 MMOL/L (135-145); TOTAL PROTEIN 6.9 GM/DL (6.4-8.2)
[2018-01-25] MEDS ORDERED: ORPHENADRINE 60 MG/2 ML (NORFLEX) AMP IV ONE (21:30)
[2018-01-25 21:43] LABS: BENZODIAZEPINES SCREEN URINE NEGATIVE (NEGATIVE)
[2018-01-25 21:44] LABS: AMPHETAMINE SCREEN, URINE NEGATIVE (NEGATIVE); BARBITURATE SCREEN URINE NEGATIVE (NEGATIVE); CANNABINOID SCREEN, URINE NEGATIVE (NEGATIVE); COCAINE SCREEN URINE NEGATIVE (NEGATIVE); METHADONE STAT NEGATIVE (NEGATIVE); METHAMPHETAMINE SCREEN URINE S NEGATIVE (NEGATIVE); OPIATE SCREEN URINE NEGATIVE (NEGATIVE); OXYCODONE STAT NEGATIVE (NEGATIVE); PROPOXYPHENE STAT NEGATIVE (NEGATIVE); TRICYCLIC ANTIDEPRESSANTS SCRE POSITIVE (NEGATIVE)
[2018-01-25] MEDS ORDERED: CYCL5TAB PO (21:48)
[2018-01-25 22:45] VITALS: BP 121/93
== END 2018-01-25 22:45 | disposition home or self-care (01) ==
LOC: EDUNIT# 19:51 → ER 19:52
DX: R10.32 Left lower quadrant pain (principal); M54.5 Low back pain; E78.00 Pure hypercholesterolemia, unspecified; G40.909 Epilepsy, unspecified, not intractable, without status epilepticus; F41.9 Anxiety disorder, unspecified; F43.10 Post-traumatic stress disorder, unspecified; F31.9 Bipolar disorder, unspecified; F20.9 Schizophrenia, unspecified; F12.10 Cannabis abuse, uncomplicated; F11.10 Opioid abuse, uncomplicated; F17.210 Nicotine dependence, cigarettes, uncomplicated; Z98.890 Other specified postprocedural states; Z87.01 Personal history of pneumonia (recurrent); Z87.820 Personal history of traumatic brain injury; Z86.711 Personal history of pulmonary embolism; Z98.51 Tubal ligation status; Z79.01 Long term (current) use of anticoagulants; Z79.51 Long term (current) use of inhaled steroids
CPT/HCPCS: 36415; 71045; 74176; 80053; 80306; 81000; 85025; 96374; 96375

== ENCOUNTER 2018-01-28 18:16 | Emergency (ER) | payer SELFPAY ==
[~2018-01-28] VITALS: Ht 162.6 cm; Wt 79.4 kg
[~2018-01-28 18:16] MED LIST changes: +CYCL5TAB PO
--- OUTSIDE RECORDS SUMMARY | 2018-01-28 18:21 | XMS REPORT | Clinical Summary ---
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
--- OUTSIDE RECORDS SUMMARY | 2018-01-28 18:33 | XMS REPORT | Continuity of Care Document ---
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 09/01/2016 [facility], LANDON K Ot G89.29 OTHER CHRONIC PAIN 09/01/2016 [facility] DO, LANDON K Ot M54.5 LOW BACK PAIN 09/01/2016 [facility] DO, LANDON K Ot N39.0 URINARY TRACT INFECTION, SITE NOT SPECIF 09/01/2016 [facility] DO, LANDON K Ot R51 HEADACHE 09/01/2016 [facility] DO, LANDON K Ot Z23 ENCOUNTER FOR IMMUNIZATION 09/01/2016 [facility] LANDON K Ot Z79.01 MAGAZINE FILLER (CURRENT) USE OF ANTICOAGULANT 09/01/2016 [facility] LANDON K Ot Z79.899 OTHER MAGAZINE FILLER (CURRENT) DRUG THERAPY 09/01/2016 [facility] LANDON K Ot Z86.711 PERSONAL HISTORY OF PULMONARY EMBOLISM 09/02/2016 [facility] LANDON K Ot F17.210 NICOTINE DEPENDENCE, CIGARETTES, UNCOMPL 09/02/2016 [facility], LANDON K Ot 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 09/02/2016 [facility], LANDON K Ot G89.29 OTHER CHRONIC PAIN 09/02/2016 [facility] DO, LANDON K Ot M54.5 LOW BACK PAIN 09/02/2016 [facility] LANDON K Ot N39.0 URINARY TRACT INFECTION, SITE NOT SPECIF 09/02/2016 [facility] LANDON K Ot R51 HEADACHE 09/02/2016 [facility] LANDON K Ot Z23 ENCOUNTER FOR IMMUNIZATION 09/02/2016 [facility] LANDON K Ot Z79.01 MAGAZINE FILLER (CURRENT) USE OF ANTICOAGULANT 09/02/2016 [facility] LANDON K Ot Z79.899 OTHER DETENTION (CURRENT) DRUG THERAPY 09/02/2016 [facility] LANDON K Ot Z86.711 PERSONAL HISTORY OF PULMONARY EMBOLISM 09/03/2016 [facility] DO LANDON K Ot F17.210 NICOTINE DEPENDENCE, CIGARETTES, UNCOMPL 09/03/2016 [facility] DO, LANDON K Ot 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 09/03/2016 [facility] DO LANDON K Ot G89.29 OTHER CHRONIC PAIN 09/03/2016 [facility] DO, LANDON K Ot M54.5 LOW BACK PAIN 09/03/2016 JAYNE DO, LANDON K Ot N39.0 URINARY TRACT INFECTION, SITE NOT SPECIF 09/03/2016 JAYNE DODAVONTEA K Ot R51 HEADACHE 09/03/2016 JAYNE DO LANDON K Ot Z23 ENCOUNTER FOR IMMUNIZATION 09/03/2016 JAYNE DAVONTE CHRISA K Ot Z79.01 DETENTION (CURRENT) USE OF ANTICOAGULANT 09/03/2016 JAYNE DO LANDON K Ot Z79.899 OTHER DETENTION (CURRENT) DRUG THERAPY 09/03/2016 JAYNE DAVONTE CHRISA K Ot Z86.711 PERSONAL HISTORY OF PULMONARY EMBOLISM 09/03/2016 JAYNE DO LANDON K Ot F17.210 NICOTINE DEPENDENCE, CIGARETTES, UNCOMPL 09/03/2016 JAYNE DO, LANDON K Ot 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 09/03/2016 [facility] DO LANDON K Ot G89.29 OTHER CHRONIC PAIN 09/03/2016 [facility] DO, LANDON K Ot M54.5 LOW BACK PAIN 09/03/2016 JAYNE DO LANDON K Ot N39.0 URINARY TRACT INFECTION, SITE NOT SPECIF 09/03/2016 JAYNE DO LANDON K Ot R51 HEADACHE 09/03/2016 JAYNE DO, LANDON K Ot Z23 ENCOUNTER FOR IMMUNIZATION 09/03/2016 JAYNE DAVONTE CHRISA Elian Ot Z79.01 MAGAZINE FILLER (CURRENT) USE OF ANTICOAGULANT 09/03/2016 JAYNE DAVONTE CHRISA K Ot Z79.899 OTHER MAGAZINE FILLER (CURRENT) DRUG THERAPY 09/03/2016 JAYNE DAVONTE CHRISA [...] 09/03/2016 JAYNE DO LANDON K Ot Z79.01 MAGAZINE FILLER (CURRENT) USE OF ANTICOAGULANT 09/03/2016 JAYNE , LANDON K Ot Z79.899 OTHER DETENTION (CURRENT) DRUG THERAPY 09/03/2016 JAYNE DAVONTEA K [...] K Ot Z23 ENCOUNTER FOR IMMUNIZATION 09/03/2016 [facility] DAVONTEA K Ot Z79.01 MAGAZINE FILLER (CURRENT) USE OF ANTICOAGULANT 09/03/2016 [facility] LANDON K Ot Z79.899 OTHER DETENTION (CURRENT) DRUG THERAPY 09/03/2016 JAYNE LANDON K Ot Z86.711 PERSONAL HISTORY OF PULMONARY EMBOLISM 09/12/2016 JAYNE LANDON K Ot F17.210 NICOTINE DEPENDENCE, CIGARETTES, UNCOMPL 09/12/2016 JAYNE , LANDON K Ot 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 09/12/2016 JAYNE LANDON K Ot G89.29 OTHER CHRONIC PAIN 09/12/2016 JAYNE DO, LANDON K Ot M54.5 LOW BACK PAIN 09/12/2016 [facility] DO, LANDON K Ot N39.0 URINARY TRACT INFECTION, SITE NOT SPECIF 09/12/2016 JAYNE LANDON K Ot R51 HEADACHE 09/12/2016 JAYNE DO LANDON K Ot Z23 ENCOUNTER FOR IMMUNIZATION 09/12/2016 JAYNE DAVONTE CHRISA K Ot Z79.01 MAGAZINE FILLER (CURRENT) USE OF ANTICOAGULANT 09/12/2016 [facility] LANDON K Ot Z79.899 OTHER DETENTION (CURRENT) DRUG THERAPY 09/12/2016 JAYNE DAVONTE CHRISA K Ot Z86.711 PERSONAL HISTORY OF PULMONARY EMBOLISM 12/12/2016 JAYNE DO, LANDON K Ot F17.210 NICOTINE DEPENDENCE, CIGARETTES, UNCOMPL 12/12/2016 JAYNE DO, LANDON K Ot 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 12/12/2016 [facility] DO, LANDON K Ot G89.29 OTHER CHRONIC PAIN 12/12/2016 JAYNE DO, LANDON K Ot M54.5 LOW BACK PAIN 12/12/2016 JAYNE DO, LANDON K Ot N39.0 URINARY TRACT INFECTION, SITE NOT SPECIF 12/12/2016 JAYNE DO, LANDON K Ot R51 HEADACHE 12/12/2016 [facility] DO, LANDON K Ot Z23 ENCOUNTER FOR IMMUNIZATION 12/12/2016 [facility] DO, LANDON K Ot Z79.01 MAGAZINE FILLER (CURRENT) USE OF ANTICOAGULANT 12/12/2016 [facility], LANDON K Ot Z79.899 OTHER DETENTION (CURRENT) DRUG THERAPY 12/12/2016 [facility], LANDON K Ot Z86.711 PERSONAL HISTORY OF PULMONARY EMBOLISM 12/12/2016 [facility], LANDON K Ot F17.210 NICOTINE DEPENDENCE, CIGARETTES, UNCOMPL 12/12/2016 [facility] DO, LANDON K Ot 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 12/12/2016 [facility] DO, LANDON K Ot G89.29 OTHER CHRONIC PAIN 12/12/2016 [facility] DO, LANDON K Ot M54.5 LOW BACK PAIN 12/12/2016 [facility] DO, LANDON K Ot N39.0 URINARY TRACT INFECTION, SITE NOT SPECIF 12/12/2016 [facility] DO, LANDON K Ot R51 HEADACHE 12/12/2016 [facility] DO, LANDON K Ot Z23 ENCOUNTER FOR IMMUNIZATION 12/12/2016 [facility], LANDON K Ot Z79.01 DETENTION (CURRENT) USE OF ANTICOAGULANT 12/12/2016 [facility], LANDON K Ot Z79.899 OTHER DETENTION (CURRENT) DRUG THERAPY 12/12/2016 [facility] DO, LANDON K Ot Z86.711 PERSONAL HISTORY OF PULMONARY EMBOLISM 12/12/2016 [facility] DO, LANDON K Ot F17.210 NICOTINE DEPENDENCE, CIGARETTES, UNCOMPL 12/12/2016 JAYNE DO, LANDON K Ot 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 12/12/2016 [facility] DO, LANDON K Ot G89.29 OTHER CHRONIC PAIN 12/12/2016 JAYNE DO, LANDON K Ot M54.5 LOW BACK PAIN 12/12/2016 JAYNE DO, LANDON K Ot N39.0 URINARY TRACT INFECTION, SITE NOT SPECIF 12/12/2016 JAYNE DO, LANDON K Ot R51 HEADACHE 12/12/2016 [facility] DO, LANDON K Ot Z23 ENCOUNTER FOR IMMUNIZATION 12/12/2016 [facility] DO, LANDON K Ot Z79.01 MAGAZINE FILLER (CURRENT) USE OF ANTICOAGULANT 12/12/2016 [facility], LANDON K Ot Z79.899 OTHER DETENTION (CURRENT) DRUG THERAPY 12/12/2016 [facility] DO, LANDON K Ot Z86.711 PERSONAL HISTORY OF PULMONARY EMBOLISM 12/12/2016 JAYNE DO, LANDON K Ot F17.210 NICOTINE DEPENDENCE, CIGARETTES, UNCOMPL 12/12/2016 [facility] DO, LANDON K Ot 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 12/12/2016 [facility] DO, LANDON K Ot G89.29 OTHER CHRONIC PAIN 12/12/2016 [facility] DO, LANDON K Ot M54.5 LOW BACK PAIN 12/12/2016 [facility] DO, LANDON K Ot N39.0 URINARY TRACT INFECTION, SITE NOT SPECIF 12/12/2016 [facility] DO, LANDON K Ot R51 HEADACHE 12/12/2016 [facility] DO, LANDON K Ot Z23 ENCOUNTER FOR IMMUNIZATION 12/12/2016 [facility] LANDON K Ot Z79.01 MAGAZINE FILLER (CURRENT) USE OF ANTICOAGULANT 12/12/2016 [facility], LANDON K Ot Z79.899 OTHER MAGAZINE FILLER (CURRENT) DRUG THERAPY 12/12/2016 [facility], LANDON K Ot Z86.711 PERSONAL HISTORY OF PULMONARY EMBOLISM 12/12/2016 MASSIMO BOYD Ot 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 12/12/2016 [facility] DO, LANDON K Ot F17.210 NICOTINE DEPENDENCE, [...] 12/12/2016 JAYNE CHRIS LANDON K Ot Z79.01 MAGAZINE FILLER (CURRENT) USE OF ANTICOAGULANT 12/12/2016 JAYNE DO LANDON Elian Ot Z79.899 OTHER MAGAZINE FILLER (CURRENT) DRUG THERAPY 12/12/2016 JAYNE DO LANDON [...] 12/12/2016 JAYNE DO LANDON K Ot Z79.01 DETENTION (CURRENT) USE OF ANTICOAGULANT 12/12/2016 LANDON GODOY DO Ot Z79.899 OTHER DETENTION (CURRENT) DRUG THERAPY 12/12/2016 JAYNE CHRIS LANDON [...] LYNN DO Ot Y92.[address] IN [facility] NON-INSTITUT (PRIVATE 12/24/2016 TERESA LYNN DO Ot Z79.01 DETENTION (CURRENT) USE OF ANTICOAGULANT 12/24/2016 TERESA LYNN DO Ot Z79.899 OTHER MAGAZINE FILLER (CURRENT) DRUG THERAPY 12/24/2016 TERESA LYNN DO [...] LYNN DO Ot Y92.[address] IN [facility] NON-[facility] (PRIVATE 12/24/2016 TERESA LYNN DO Ot Z79.01 DETENTION (CURRENT) USE OF ANTICOAGULANT 12/24/2016 TERESA LYNN DO Ot Z79.899 OTHER MAGAZINE FILLER (CURRENT) DRUG THERAPY 12/24/2016 TERESA LYNN DO [...] IMMUNIZATION 12/27/2016 LANDON GODOY DO Ot Z79.01 DETENTION (CURRENT) USE OF ANTICOAGULANT 12/27/2016 LANDON GODOY DO Ot Z79.899 OTHER MAGAZINE FILLER (CURRENT) DRUG THERAPY 12/27/2016 LANDON GODOY DO [...] IMMUNIZATION 08/19/2017 LANDON GODOY DO Ot Z79.01 DETENTION (CURRENT) USE OF ANTICOAGULANT 08/19/2017 LANDON GODOY DO Ot Z79.899 OTHER MAGAZINE FILLER (CURRENT) DRUG THERAPY 08/19/2017 LANDNO GODOY DO K Ot Z86.711 PERSONAL HISTORY [...] SOMNOLENCE 09/12/2017 LEAH CHRIS TERESA Ot Z79.01 DETENTION (CURRENT) USE OF ANTICOAGULANT 09/12/2017 LEAH CHRIS [...] SOMNOLENCE 09/12/2017 LEAH CHRIS TERESA Ot Z79.01 MAGAZINE FILLER (CURRENT) USE OF ANTICOAGULANT 09/12/2017 LEAH CHRIS [...] LEAH CHRIS TERESA Ot T43.501A POISONING BY [facility] ANTIPSYCHOT/NEUROLEPT, 09/15/2017 LEAH CHRIS TERESA Ot T68.XXXA HYPOTHERMIA, INITIAL ENCOUNTER 09/15/2017 LEAH CHRIS TERESA Ot W19.XXXA UNSPECIFIED FALL, INITIAL ENCOUNTER 09/15/2017 LEAH CHRIS TERESA Ot Y92.[address] IN [facility] NON-INSTITUT (PRIVATE) 09/15/2017 LEAH CHRIS TERESA Ot Y93.K1 ACTIVITY, WALKING AN ANIMAL 09/15/2017 LEAH CHRIS TERESA Ot Z68.30 BODY MASS INDEX (BMI) 30.0-30.9, ADULT 09/15/2017 LEHA CHRIS TERESA Ot Z79.01 DETENTION (CURRENT) USE OF ANTICOAGULANT 09/15/2017 TERESA LYNN [...] TERESA LYNN DO Ot T43.501A POISONING BY [facility] ANTIPSYCHOT/NEUROLEPT, 09/16/2017 TERESA LYNN DO Ot T68.XXXA HYPOTHERMIA, INITIAL ENCOUNTER 09/16/2017 TERESA LYNN DO Ot W19.XXXA UNSPECIFIED FALL, INITIAL ENCOUNTER 09/16/2017 TERESA LYNN DO Ot Y92.[address] IN [facility] NON-INSTIT[facility] (PRIVATE) 09/16/2017 TERESA LYNN DO Ot Y93.K1 ACTIVITY, WALKING AN ANIMAL 09/16/2017 TERESA LYNN DO Ot Z68.30 BODY MASS INDEX (BMI) 30.0-30.9, ADULT 09/16/2017 ELIU LYNN DOI Ot Z79.01 DETENTION (CURRENT) USE OF ANTICOAGULANT 09/16/2017 TERESA LYNN [...] 09/16/2017 TERESA LYNN DO Ot G40.909 EPILEPSY, [facility], NOT INTRACTABLE, WITHOUT 09/16/2017 TERESA LYNN DO [...] TERESA LYNN DO Ot T43.501A POISONING BY [facility] ANTIPSYCHOT/NEUROLEPT, 09/16/2017 TERESA LYNN DO Ot T68.XXXA HYPOTHERMIA, INITIAL ENCOUNTER 09/16/2017 TERESA LYNN DO Ot W19.XXXA UNSPECIFIED FALL, INITIAL ENCOUNTER 09/16/2017 TERESA LYNN DO Ot Y92.[address] IN [facility] NON-INSTIT[facility] (PRIVATE) 09/16/2017 TERESA LYNN DO Ot Y93.K1 ACTIVITY, WALKING AN ANIMAL 09/16/2017 TERESA LYNN DO Ot Z68.30 BODY MASS INDEX (BMI) 30.0-30.9, ADULT 09/16/2017 TERESA LYNN DO Ot Z79.01 DETENTION (CURRENT) USE OF ANTICOAGULANT 09/16/2017 TERESA LYNN DO Ot Z86.711 PERSONAL HISTORY OF PULMONARY EMBOLISM 09/16/2017 TERESA LYNN DO Ot Z87.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 09/16/2017 TERESA LYNN DO Ot Z91.14 PATIENT'S OTHER NONCOMPLIANCE WITH MEDIC 09/16/2017 LYNN DO, TERESA Ot Z91.81 HISTORY OF FALLING 09/16/2017 LYNN DO, TERESA Ot E66.9 OBESITY, UNSPECIFIED 09/16/2017 LYNN DO, TERESA Ot F11.90 OPIOID USE, UNSPECIFIED, [...] LYNN DO Ot Y92.[address] IN [facility] NON-[facility] (PRIVATE) 09/16/2017 TERESA LYNN DO Ot Y93.K1 ACTIVITY, WALKING AN ANIMAL 09/16/2017 ELIU LYNN DOI Ot Z68.30 BODY MASS INDEX (BMI) 30.0-30.9, ADULT 09/16/2017 TERESA LYNN DO Ot Z79.01 DETENTION (CURRENT) USE OF ANTICOAGULANT 09/16/2017 ELIU LYNN [...] TERESA LYNN DO Ot T43.501A POISONING BY [facility] ANTIPSYCHOT/NEUROLEPT, 09/16/2017 TERESA LYNN DO Ot T68.XXXA HYPOTHERMIA, INITIAL ENCOUNTER 09/16/2017 TERESA LYNN DO Ot W19.XXXA UNSPECIFIED FALL, INITIAL ENCOUNTER 09/16/2017 TERESA LYNN DO Ot Y92.[address] IN [facility] NON-INSTIT[facility] (PRIVATE) 09/16/2017 TERESA LYNN DO Ot Y93.K1 ACTIVITY, WALKING AN ANIMAL 09/16/2017 TERESA LYNN DO Ot Z68.30 BODY MASS INDEX (BMI) 30.0-30.9, ADULT 09/16/2017 ELIU LYNN DOI Ot Z79.01 MAGAZINE FILLER (CURRENT) USE OF ANTICOAGULANT 09/16/2017 TERESA LYNN [...] 09/16/2017 LEAH CHRIS TERESA Ot G40.909 EPILEPSY, [facility], NOT INTRACTABLE, WITHOUT 09/16/2017 LEAH CHRIS TERESA [...] LEAH CHRIS TERESA Ot T43.501A POISONING BY [facility] ANTIPSYCHOT/NEUROLEPT, 09/16/2017 LEAH CHRIS TERESA Ot T68.XXXA HYPOTHERMIA, INITIAL ENCOUNTER 09/16/2017 LEAH CHRIS TERESA Ot W19.XXXA UNSPECIFIED FALL, INITIAL ENCOUNTER 09/16/2017 LEAH CHRIS TERESA Ot Y92.[address] IN [facility] NON-INST[facility] (PRIVATE) 09/16/2017 LEAH CHRIS TERESA Ot Y93.K1 ACTIVITY, WALKING AN ANIMAL 09/16/2017 LEAH CHRIS TERESA Ot Z68.30 BODY MASS INDEX (BMI) 30.0-30.9, ADULT 09/16/2017 ELIU LYNN DOI Ot Z79.01 DETENTION (CURRENT) USE OF ANTICOAGULANT 09/16/2017 ELIU LYNN [...] TERESA LYNN DO Ot T43.501A POISONING BY [facility] ANTIPSYCHOT/NEUROLEPT, 09/17/2017 TERESA LYNN DO Ot T68.XXXA HYPOTHERMIA, INITIAL ENCOUNTER 09/17/2017 TERESA LYNN DO Ot W19.XXXA UNSPECIFIED FALL, INITIAL ENCOUNTER 09/17/2017 TERESA LYNN DO Ot Y92.[address] IN [facility] NON-INSTIT[facility] (PRIVATE) 09/17/2017 TERESA LYNN DO Ot Y93.K1 ACTIVITY, WALKING AN ANIMAL 09/17/2017 ELIU LYNN DOI Ot Z68.30 BODY MASS INDEX (BMI) 30.0-30.9, ADULT 09/17/2017 TERESA LYNN DO Ot Z79.01 MAGAZINE FILLER (CURRENT) USE OF ANTICOAGULANT 09/17/2017 ELIU LYNN [...] Ot F43.10 POST-TRAUMATIC STRESS DISORDER, UNSPECIF 09/17/2017 TERESA LYNN DO Ot F60.9 PERSONALITY DISORDER, UNSPECIFIED 09/17/2017 TERESA LYNN DO Ot G40.909 EPILEPSY, [facility], NOT INTRACTABLE, WITHOUT 09/17/2017 TERESA LYNN DO [...] TERESA LYNN DO Ot T43.501A POISONING BY [facility] ANTIPSYCHOT/NEUROLEPT, 09/17/2017 TERESA LYNN DO Ot T68.XXXA HYPOTHERMIA, INITIAL ENCOUNTER 09/17/2017 TERESA LYNN DO Ot W19.XXXA UNSPECIFIED FALL, INITIAL ENCOUNTER 09/17/2017 TERESA LYNN DO Ot Y92.[address] IN [facility] NON-INST[facility] (PRIVATE) 09/17/2017 TERESA LYNN DO Ot Y93.K1 ACTIVITY, WALKING AN ANIMAL 09/17/2017 TERESA LYNN DO Ot Z68.30 BODY MASS INDEX (BMI) 30.0-30.9, ADULT 09/17/2017 TERESA LYNN DO Ot Z79.01 MAGAZINE FILLER (CURRENT) USE OF ANTICOAGULANT 09/17/2017 TERESA LYNN [...] LYNN DO Ot Y92.[address] IN [facility] NON-[facility] (PRIVATE) 09/17/2017 TERESA LYNN DO Ot Y93.K1 ACTIVITY, WALKING AN ANIMAL 09/17/2017 ELIU LYNN DOI Ot Z68.30 BODY MASS INDEX (BMI) 30.0-30.9, ADULT 09/17/2017 ELIU LYNN DOI Ot Z79.01 MAGAZINE FILLER (CURRENT) USE OF ANTICOAGULANT 09/17/2017 ELIU LYNN [...] 09/17/2017 LEAH CHRIS TERESA Ot G40.909 EPILEPSY, [facility], NOT INTRACTABLE, WITHOUT 09/17/2017 LEAH CHRIS TERESA [...] TERESA LYNN DO Ot T43.501A POISONING BY [facility] ANTIPSYCHOT/NEUROLEPT, 09/17/2017 TERESA LYNN DO Ot T68.XXXA HYPOTHERMIA, INITIAL ENCOUNTER 09/17/2017 TERESA LYNN DO Ot W19.XXXA UNSPECIFIED FALL, INITIAL ENCOUNTER 09/17/2017 TERESA LYNN DO Ot Y92.[address] IN [facility] NON-INST[facility] (PRIVATE) 09/17/2017 TERESA LYNN DO Ot Y93.K1 ACTIVITY, WALKING AN ANIMAL 09/17/2017 TERESA LYNN DO Ot Z68.30 BODY MASS INDEX (BMI) 30.0-30.9, ADULT 09/17/2017 TERESA LYNN DO Ot Z79.01 DETENTION (CURRENT) USE OF ANTICOAGULANT 09/17/2017 TERESA LYNN [...] 802.9 OTHER FACIAL BONES OPEN FRACTURE 10/28/2017 THERESALAI W 873.42 OPEN WOUND OF FOREHEAD, UNCOMPLICATED 10/28/2017 THERESALAI A G40.909 EPILEPSY, [facility], NOT INTRACTABLE, WITHOUT STATUS EPILEPTICUS 10/28/2017 THERESALAI W S01.81XA LACERATION W/O FOREIGN BODY OF OTH PART OF HEAD, INIT ENCNTR 10/28/2017 THERESALAI W S02.81XA FRACTURE OF OTH SKULL AND FACIAL BONES, RIGHT SIDE, INIT 01/27/2018 HUMAIRA HARVEY APRN Ot E78.00 PURE HYPERCHOLESTEROLEMIA, UNSPECIFIED 01/27/2018 HUMAIRA HARVEY APRN Ot F11.10 OPIOID ABUSE, UNCOMPLICATED 01/27/2018 HUMAIRA HARVEY APRN Ot F12.10 CANNABIS ABUSE, UNCOMPLICATED 01/27/2018 HUMAIRA HARVEY APRN Ot F17.210 NICOTINE DEPENDENCE, CIGARETTES, UNCOMPL 01/27/2018 HUMAIRA HARVEY APRN Ot F20.9 SCHIZOPHRENIA, UNSPECIFIED 01/27/2018 HUMAIRA HARVEY APRN Ot F31.9 BIPOLAR DISORDER, UNSPECIFIED 01/27/2018 HUMAIRA HARVEY APRN Ot F41.9 ANXIETY DISORDER, UNSPECIFIED 01/27/2018 HUMAIRA HARVEY APRN Ot F43.10 POST-TRAUMATIC STRESS DISORDER, UNSPECIF 01/27/2018 HUMAIRA HARVEY APRN Ot G40.909 EPILEPSY, [facility], NOT INTRACTABLE, WITHOUT 01/27/2018 HUMAIRA HARVEY APRN Ot M54.5 LOW BACK PAIN 01/27/2018 HUMAIRA HARVEY APRN Ot R10.32 LEFT LOWER QUADRANT PAIN 01/27/2018 HUMAIRA HARVEY APRN Ot Z79.01 DETENTION (CURRENT) USE OF ANTICOAGULANT 01/27/2018 HUMAIRA HARVEY APRN Ot Z79.51 MAGAZINE FILLER (CURRENT) USE OF INHALED STERO 01/27/2018 HUMAIRA HARVEY APRN Ot Z86.711 PERSONAL HISTORY OF PULMONARY EMBOLISM 01/27/2018 HUMAIRA HARVEY APRN Ot Z87.01 PERSONAL HISTORY OF PNEUMONIA (RECURRENT 01/27/2018 HUMAIRA HARVEY APRN Ot Z87.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 01/27/2018 HUMAIRA HARVEY APRN, Ot Z98.51 TUBAL LIGATION STATUS 01/27/2018 HUMAIRA HARVEY CAR CHASER Ot Z98.890 OTHER SPECIFIED POSTPROCEDURAL STATES Procedures Code Description Performed By Performed On 33.24 ENDOSCOPIC BRONCHIAL BX 09/28/2014 [id number] INSERT INFUSION DEV IN L EXT JUGULAR [...] measurement (mass/volume) 3.6 g/dL 3.2-4.5 Magnesium - 08/22/17 02:59 Magnesium 2.1 mg/dL 1.8-2.4 Serum or [...] culture - 08/17/17 11:51 Bacterial urine culture [id number] NRG COLONY COUNT <10,000 NRG FTX;REPORTABLE PLUS, [...] NEGATIVE EKG - 10/28/17 09:45 EKG Complete Complete urinalysis with reflex to culture - 01/25/18 20:00 Urine color determination YELLOW NRG Urine clarity determination SLIGHTLY CLOUDY NRG Urine pH measurement by test strip 6.5 5-9 Specific gravity of urine by test strip 1.015 1.016- 1.022 Urine protein assay by test strip, semi-quantitative 2+ NEGATIVE Urine glucose detection by automated test [...] detection in urine sediment by light microscopy FEW NRG Squamous epithelial cells detection in urine sediment by light microscopy 10-25 NRG Crystals detection in urine sediment by light microscopy NONE NRG Casts detection in urine sediment by light microscopy PRESENT NRG Mucus detection in urine sediment by light microscopy NEGATIVE NRG Complete urinalysis with reflex to culture NO NRG Yeast detection in urine sediment by light microscopy MODERATE NRG Hyaline casts detection in urine sediment by light microscopy 0-2 NRG Renal epithelial cells detection in urine sediment by light microscopy 0-2 NRG Urine drug screening test - 01/25/18 20:00 Urine phencyclidine detection by screening method NEGATIVE [...] NEGATIVE Urine propoxyphene detection NEGATIVE NEGATIVE Complete blood count (CBC) with automated white blood cell (WBC) differential - 01/25/18 20:52 Blood leukocytes automated count (number/volume) 11.3 10*3/uL 4.3-11.0 Blood erythrocytes automated count (number/volume) 4.53 10*6/uL 4.35-5.85 Venous blood hemoglobin measurement (mass/volume) 14.0 g/dL 11.5-16.0 Blood hematocrit (volume fraction) 42 % 35-52 Automated erythrocyte mean corpuscular volume 93 [foz_us] 80-99 Automated erythrocyte mean corpuscular hemoglobin (mass per erythrocyte) 31 pg 25-34 Automated erythrocyte mean corpuscular hemoglobin concentration measurement ( mass/volume) 33 g/dL 32-36 Automated erythrocyte distribution width ratio 13.9 % 10.0-14.5 Automated blood platelet count (count/volume) 362 10*3/uL 130-400 Automated blood platelet mean volume measurement 9.3 [foz_us] 7.4-10.4 Automated blood neutrophils/100 leukocytes 76 % 42-75 Automated blood lymphocytes/100 leukocytes 16 % 12-44 Blood monocytes/100 leukocytes 7 % 0-12 Automated blood eosinophils/100 leukocytes 1 % 0-10 Automated blood basophils/100 leukocytes 0 % 0-10 Blood neutrophils automated count (number/volume) 8.6 10*3 1.8-7.8 Blood lymphocytes automated count (number/volume) 1.8 10*3 1.0-4.0 Blood monocytes automated count (number/volume) 0.8 10*3 0.0-1.0 Automated eosinophil count 0.1 10*3/uL 0.0-0.3 Automated blood basophil count (count/volume) 0.0 10*3/uL 0.0-0.1 Comprehensive metabolic panel - 01/25/18 20:52 Serum or plasma sodium measurement (moles/volume) 136 mmol/L 135-145 Serum or plasma potassium measurement (moles/volume) 3.6 mmol/L 3.6-5.0 Serum or plasma chloride measurement (moles/volume) 101 mmol/L 98-107 Carbon dioxide 22 mmol/L 21-32 Serum or plasma anion gap determination (moles/volume) 13 mmol/L 5-14 Serum or plasma urea nitrogen measurement (mass/volume) 6 mg/dL 7-18 Serum or plasma creatinine measurement (mass/volume) 0.86 mg/dL 0.60-1.30 Serum or plasma urea nitrogen/creatinine mass ratio 7 NRG Serum or plasma creatinine measurement with calculation of estimated glomerular filtration rate > NRG Serum or plasma glucose measurement (mass/volume) 103 mg/dL 70-105 Serum or plasma calcium measurement (mass/volume) 9.2 mg/dL 8.5-10.1 Serum or plasma total bilirubin measurement (mass/volume) 0.5 mg/dL 0.1-1.0 Serum or plasma alkaline phosphatase measurement (enzymatic activity/volume) 88 U/L 40-136 Serum or plasma aspartate aminotransferase measurement (enzymatic activity/ volume) 14 U/L 5-34 Serum or plasma alanine aminotransferase measurement (enzymatic activity/volume ) 12 U/L 0-55 Serum or plasma protein measurement (mass/volume) 6.9 g/dL 6.4-8.2 Serum or plasma albumin measurement (mass/volume) 4.0 g/dL 3.2-4.5 CALCIUM CORRECTED 9.2 mg/dL 8.5-10.1 Encounters ACCT No. Visit Date/Time Discharge Status Pt. Type Provider Facility Loc./Unit Complaint [id number] 01/25/2018 19:52:00 01/25/2018 22:45:00 DIS Outpatient HUMAIRA HARVEY APRN Via [facility] ER BACK PAIN [id number] 01/12/2018 09:51:00 01/12/2018 23:59:59 CLS Preadmit CAROLINA LANDEROS MD Via [facility] RAD SCREENING [id number] 09/11/2017 08:02:00 09/17/2017 11:58:00 DIS Inpatient TERESA LYNN DO Via [facility] 4TH CHI,HYPOTHERMIA,NO CHANGE IN MENTATION [id number] 08/17/2017 11:50:00 08/18/2017 16:30:00 DIS Inpatient DELVIN RHODES MD Via [facility] ICU ACUTE PSYCHOSIS, SEIZURES AND BIPOLAR. [id number] 04/14/2017 14:45:00 04/14/2017 23:59:59 CLS Preadmit OTHER, UNLISTED Via [facility] RAD SCREENING [id number] 01/31/2017 10:48:00 01/31/2017 23:59:59 CLS Preadmit OTHER, UNLISTED Via [facility] RAD SCREENING Z12.31 [id number] 12/24/2016 03:40:00 12/24/2016 15:40:00 DIS Inpatient TERESA LYNN DO Via [facility] ICU UNRESPONSIVE [id number] 08/30/2016 17:27:00 08/30/2016 23:59:59 CLS Emergency LANDON GODOY DO K [facility] ER BACK PAIN, SHINGLES [id number] 07/12/2016 20:41:00 07/18/2016 17:05:00 DIS Inpatient LIZ CROWLEY MD Via [facility] 4TH BILATERAL PE,AMS, PNEUMONIA [id number] 02/28/2016 14:02:00 02/28/2016 23:59:59 CLS Outpatient MASSIMO BOYD [facility] RAD G50.0 [id number] 02/10/2015 18:38:00 02/10/2015 23:59:59 CLS Emergency HUMAIRA HARVEY APRN Via [facility] ER DENTAL PAIN [id number] 01/06/2015 14:23:00 01/06/2015 16:28:00 DIS Emergency HUMAIRA HARVEY CAR CHASER Via [facility] ER LEFT FOOT/ANKLE/LEG PAIN [id number] 09/30/2014 08:09:00 10/05/2014 12:05:00 DIS Inpatient ANG MELO MD [facility] SURGICAL SWB-Pneumonia [id number] 09/27/2014 14:16:00 09/30/2014 07:58:00 DIS Inpatient ANG MELO MD [facility] SURGICAL PNEUMONIA RUL [id number] 06/09/2014 12:40:00 06/09/2014 19:38:00 DIS Emergency KAMRON SY MD Via [facility] ER BLOOD IN STOOL [id number] 08/20/2016 10:57:00 Document Registration [id number] 07/02/2014 20:44:00 Document Registration [id number] 07/09/2016 14:10:00 Document Registration [id number] 10/28/2017 07:26:00 10/28/2017 13:05:00 [facility] Outpatient [facility] ER [id number] 10/28/2017 08:40:58 Document Registration
--- NOTE | 2018-01-28 19:01 | ED General ---
General Chief Complaint: Psych/Social Disorder Stated Complaint: MEDICATION REACTION Nursing Triage Note: PT ARRIVED PER EMS FROM HOME STATES HAS SNAKES IN HOUSE CRAWLING ON HER AND SNAKES IN HER HEAD, PT POINTS TO SEAMS ON PANTS AND THINKS HAS SNAKES. REASSURED PT NO SNAKES IN ED. PT HAS BRUISING NOTED ON L SHOULD AND L INNER ARM. PT HAS BRUISING NOTED ON AC OF L ARM W NUMEROUS SMALL DAVIS NOTED. Nursing Sepsis Screen: No Definite Risk Source of Information: Patient Exam Limitations: No Limitations History of Present Illness Date Seen by Provider: Jan 28, 2018 Time Seen by Provider: 18:16 Initial Comments Patient is a 52-year-old female who is brought in to the emergency room by [facility] with reports of snakes crawling around in her house, " snakes in her head", feeling snakes in her legs. She reports that she started seeing snakes this afternoon. She reports that in the past she's had traumatic brain injury., history of psychosis, and history of substance abuse. She has a large area of ecchymosis to the back of her left arm and she states that she fell a few days ago and when she fell she didn't hit her head, she denies neck pain or LOC. [facility] Timing/Duration: 1-2 Days Associated Systoms: Denies Symptoms Allergies and Home Medications Allergies Coded Allergies: No Known Drug Allergies (Unverified , 06/09/14) Home Medications Amitriptyline HCl 75 Mg Tablet, 150 MG PO HS, (Reported) TAKES 2 (75 MG) TABLETS Apixaban 2.5 Mg Tablet, 2.5 MG PO BID, (Reported) Atorvastatin Calcium 40 Mg Tablet, 20 MG PO HS, (Reported) TAKES 1/2 (40MG) TABLET Cephalexin 500 Mg Capsule, 500 MG PO BID Prescribed by: NOAH ARANDA on 01/28/182103 Clonazepam 1 Mg Tablet, 1 MG PO DAILY PRN for ANXIETY, (Reported) Cyclobenzaprine HCl 5 Mg Tablet, 5 MG PO TID PRN for PAIN-MILD TO MODERATE Prescribed by: HUMAIRA HARVEY on 01/25/182147 Docusate Sodium 100 Mg Capsule, 100 MG PO BID PRN for CONSTIPATION-1ST LINE, ( Reported) Fluticasone/Salmeterol 12 Gm Hfa.aer.ad, 2 PUFF IH RTBID Prescribed by: IRA HOPKINS on 09/17/17 0804 Gabapentin 600 Mg Tablet, 1,200 MG PO TID, (Reported) TAKES 2 (600 MG) TABLETS Lamotrigine 200 Mg Tablet, 200 MG PO BID, (Reported) Patient Home Medication List Home Medication List Reviewed: Yes Review of Systems Review of Systems Constitutional: see HPI; No chills, No fever Skin: see HPI, other (brusing to the back of the left arm.) Psychiatric/Neurological: See HPI, Other (Visual hallucinations.) All Other Systems Reviewed Negative Unless Noted: Yes Past Almgvzq-Pjsmgm-Odvtoa Hx Patient Social History Alcohol Use: Denies Use Recreational Drug Use: Yes Drug of Choice: MARIJUANA, opioids Smoking Status: Current Everyday Smoker Type Used: Cigarettes Recent Foreign Travel: No Contact w/Someone Who Travel: No Recent Infectious Disease Expo: No Recent Hopitalizations: No Physical Abuse: No Sexual Abuse: No Immunizations Up To Date Tetanus Booster (TDap): Less than 5yrs Seasonal Allergies Seasonal Allergies: No Past Medical History Surgeries: Yes (FACE) Section, Orthopedic, Tubal Ligation Respiratory: Yes (BILATERAL P.E. 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 Genitourinary: No Gastrointestinal: No Musculoskeletal: Yes (FACIAL PAIN) Chronic Back Pain Endocrine: No HEENT: No Cancer: No Psychosocial: Yes Anxiety, PTSD, Bipolar, Personality Disorder, Schizophrenia, Depression Integumentary: No Blood Disorders: No Family Medical History Alcoholism 19 FATHER Arthritis 19 MOTHER FH: bipolar disorder No Pertinent Family Hx, Psychiatric Problems Physical Exam Vital Signs Vital Signs - First Documented 01/28/18 01/28/18 18:16 21:59 Temp 97.5 Pulse 88 Resp 18 B/P (MAP) 140/98 (112) Pulse Ox 97 O2 Flow Rate 100.00 Capillary Refill : Less Than 3 Seconds Height, Weight, BMI Height: 5'4.00" Weight: 175lbs. 0.0oz. [id number]; 30.3 BMI Method:Stated General Appearance: No Apparent Distress, WD/WN Eyes: Bilateral Eye Normal Inspection, Bilateral Eye PERRL, Bilateral Eye EOMI HEENT: PERRL/EOMI, TMs Normal, Normal ENT Inspection, Pharynx Normal Neck: Full Range of Motion, Normal Inspection, Non Tender, Supple, Carotid Bruit Respiratory: Chest Non Tender, Lungs Clear, Normal Breath Sounds, No Accessory Muscle Use, No Respiratory Distress Cardiovascular: Regular Rate, Rhythm, No Edema, No Gallop, No JVD, No Murmur, Normal Peripheral Pulses Gastrointestinal: Normal Bowel Sounds, No Organomegaly, No Pulsatile Mass, Non Tender, Soft Neurologic/Psychiatric: Alert, Oriented x3, Normal Mood/Affect Skin: Normal Color, Warm/Dry, Ecchymosis Progress/Results/Core Measures Suspected Sepsis Recent Fever Within 48 Hours: No Infection Criteria Present: None New/Unexplained Altered Menta: No Sepsis Screen: No Definite Risk SIRS Temperature:97.5 Pulse: 88 Respiratory Rate: 18 Laboratory Tests 01/28/18 18:58: White Blood Count 10.5 Blood Pressure 140 /98 Mean: 112 Laboratory Tests 01/28/18 18:58: Creatinine 0.84, Platelet Count 375, Total Bilirubin 0.6 Results/Orders Lab Results Laboratory Tests Test 01/28/18 18:58 01/28/18 20:13 Range/Units White Blood Count 10.5 4.3-11.0 10^3/uL Red Blood Count 4.37 4.35-5.85 10^6/uL Hemoglobin 14.0 11.5-16.0 G/DL Hematocrit 40 35-52 % Mean Corpuscular Volume 91 80-99 FL Mean Corpuscular Hemoglobin 32 25-34 PG Mean Corpuscular Hemoglobin Concent 35 32-36 G/DL Red Cell Distribution Width 13.5 10.0-14.5 % Platelet Count 375 130-400 10^3/uL Mean Platelet Volume 9.1 7.4-10.4 FL Neutrophils (%) (Auto) 81 H 42-75 % Lymphocytes (%) (Auto) 11 L 12-44 % Monocytes (%) (Auto) 8 0-12 % Eosinophils (%) (Auto) 0 0-10 % Basophils (%) (Auto) 0 0-10 % Neutrophils # (Auto) 8.5 H 1.8-7.8 X 10^3 Lymphocytes # (Auto) 1.1 1.0-4.0 X 10^3 Monocytes # (Auto) 0.8 0.0-1.0 X 10^3 Eosinophils # (Auto) 0.0 0.0-0.3 10^3/uL Basophils # (Auto) 0.0 0.0-0.1 10^3/uL Sodium Level 136 135-145 MMOL/L Potassium Level 3.2 L 3.6-5.0 MMOL/L Chloride Level 99 98-107 MMOL/L Carbon Dioxide Level 26 21-32 MMOL/L Anion Gap 11 5-14 MMOL/L Blood Urea Nitrogen 5 L 7-18 MG/DL Creatinine 0.84 0.60-1.30 MG/DL Estimat Glomerular Filtration Rate > 60 BUN/Creatinine Ratio 6 Glucose Level 101 70-105 MG/DL Calcium Level 9.4 8.5-10.1 MG/DL Corrected Calcium 9.2 8.5-10.1 MG/DL Total Bilirubin 0.6 0.1-1.0 MG/DL Aspartate Amino Transf (AST/SGOT) 37 H 5-34 U/L Alanine Aminotransferase (ALT/SGPT) 18 0-55 U/L Alkaline Phosphatase 94 40-136 U/L Total Protein 7.2 6.4-8.2 GM/DL Albumin 4.2 3.2-4.5 GM/DL TSH [place] Testing 0.88 0.35-4.94 UIU/ML Salicylates Level < 5.0 L 5.0-20.0 MG/DL Acetaminophen Level < 10 L 10-30 UG/ML Serum Alcohol < 10 <10 MG/DL Urine Color YELLOW Urine Clarity CLEAR Urine pH 7 5-9 Urine Specific [place] 1.010 L 1.016-1.022 Urine Protein NEGATIVE NEGATIVE Urine Glucose (UA) NEGATIVE NEGATIVE Urine Ketones NEGATIVE NEGATIVE Urine Nitrite NEGATIVE NEGATIVE Urine Bilirubin NEGATIVE NEGATIVE Urine Urobilinogen NORMAL NORMAL MG/DL Urine Leukocyte Esterase 2+ H NEGATIVE Urine RBC (Auto) NEGATIVE NEGATIVE Urine RBC NONE /HPF Urine WBC 10-25 H /HPF Urine Squamous Epithelial Cells 10-25 H /HPF Urine Crystals NONE /LPF Urine Bacteria MODERATE H /HPF Urine Casts NONE /LPF Urine Mucus NEGATIVE /LPF Urine Culture Indicated YES Urine Test NEGATIVE NEGATIVE Urine Opiates Screen NEGATIVE NEGATIVE Urine Oxycodone Screen NEGATIVE NEGATIVE Urine Methadone Screen NEGATIVE NEGATIVE Urine Propoxyphene Screen NEGATIVE NEGATIVE Urine Barbiturates Screen NEGATIVE NEGATIVE Ur Tricyclic Antidepressants Screen POSITIVE H NEGATIVE Urine Phencyclidine Screen NEGATIVE NEGATIVE Urine Amphetamines Screen NEGATIVE NEGATIVE Urine Methamphetamines Screen NEGATIVE NEGATIVE Urine Benzodiazepines Screen NEGATIVE NEGATIVE Urine Cocaine Screen NEGATIVE NEGATIVE Urine Cannabinoids Screen NEGATIVE NEGATIVE My Orders Orders - NOAH ARANDA Ua Culture If Indicated (01/28/18 18:30) Cbc With Automated Diff (01/28/18 18:30) Comprehensive Metabolic Panel (01/28/18 18:30) Alcohol (01/28/18 18:30) Drug Screen Stat (Urine) (01/28/18 18:30) Acetaminophen (01/28/18 18:30) Salicylate (01/28/18 18:30) Ekg Tracing (01/28/18 18:30) Hcg,Qualitative Urine (01/28/18 18:30) Saline Lock/Iv-Start (01/28/18 18:30) Thyroid Analyzer (01/28/18 18:30) Monitor-Rhythm Ecg Trace Only (01/28/18 18:30) Saline Lock/Iv-Start (01/28/18 18:30) Ct Head/Cervical Spine Wo (01/28/18 19:01) Ziprasidone Capsule (Geodon Capsule) (01/28/18 20:00) Urine Culture (01/28/18 20:13) Medications Given in ED Current Medications Medications Dose Ordered Sig/Christian Route Start Time Stop Time Status Last Admin Dose Admin Ziprasidone 20 mg ONCE ONCE PO 01/28/18 20:00 01/28/18 20:01 DC 01/28/18 20:19 20 MG Vital Signs/I&O 01/28/18 01/28/18 18:16 21:59 Temp 97.5 97.0 Pulse 88 88 Resp 18 12 B/P (MAP) 140/98 (112) 120/86 Pulse Ox 97 100 O2 Flow Rate 100.00 Capillary Refill : Less Than 3 Seconds Blood Pressure Mean: 112 Progress Note : Time: 20:10 Progress Note Spoke to Dr. Starr at this time. 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 She is going to have mental health follow-up on her tomorrow morning. She states that someone will make contact with her first thing in the morning. The patient denies thoughts of harming herself or other. She is having mild relief of symptoms at this time. She called her neighbor and she agrees to let her stay with her tonight. Taxi voucher was provided for transport home, registration called for ride. Diagnostic Imaging Diagonstic Imaging: CT Plain Films/CT/US/NM/MRI: head Comments NAME: RENATO NEGRON [facility] REC#: [id number] PT STATUS: REG ER : 1965 PHYSICIAN: NOAH ARANDA ADMIT DATE: 01/28/18/ER Draft Date of Exam:01/28/18 CT HEAD/CERVICAL SPINE WO PROCEDURE: CT head and CT cervical spine without contrast. TECHNIQUE: Multiple contiguous axial images were obtained through the brain and cervical spine without the use of intravenous contrast. Sagittal and coronal reformations through the cervical spine were then performed. INDICATION: Fall. Comparison is made with prior CT from 09/11/2017. CT head: The ventricles and sulci are within normal limits. No sulcal effacement is seen. No acute intra-axial or extra-axial hemorrhage is seen. Cisterns are patent. The visualized paranasal sinuses are clear. IMPRESSION: No acute intracranial process is identified. CT cervical spine: There is straightening of the normal cervical lordotic curvature. There is significant degenerative disc disease at the C5-6 level with disc space narrowing and marginal spurring. No fractures are identified. The odontoid is intact. The prevertebral tissues are unremarkable. IMPRESSION: Cervical spondylosis. No acute bony abnormality is detected. Dictated on workstation # [id number] Dict: 01/28/181933 Trans: 01/28/18 [address] [id number] Interpreted by: ANTOINE KING MD Electronically signed by: Departure Impression Primary Impression: Psychosis Additional Impression: UTI (urinary tract infection) Disposition: 01 HOME, SELF-CARE Condition: Stable/Unchanged Departure-Patient Inst. Decision time for Depature: 20:46 Referrals: [facility] (PCP/Family) Primary Care Physician Patient Instructions: Schizoaffective Disorder (DC), Urinary Tract Infection, Adult (DC) Add. Discharge Instructions: Take medications as directed. Follow-up with [facility] tomorrow morning. They will be calling you first thing in the morning. Continue your home medications as previously prescribed. Return back to the emergency room should her symptoms worsen, outs of harming yourself or anyone else, or any other worsening symptoms. All discharge instructions reviewed with patient and/or family. Voiced understanding. Scripts Cephalexin (Keflex) 500 Mg Capsule 500 MG PO BID for 7 Days, #14 CAP Prov: NOAH ARANDA 01/28/18 NOAH ARANDA Jan 28, 2018 19:01
[2018-01-28 19:05] LABS: BASOPHILS % (AUTO) 0 % (0-10); EOSINOPHILS % (AUTO) 0 % (0-10); HEMATOCRIT 40 % (35-52); LYMPHOCYTES # (AUTO) 1.1 X 10^3 (1.0-4.0); LYMPHOCYTES % (AUTO) 11 % (12-44); MEAN CORPUSCULAR HEMOGLOBIN 32 PG (25-34); MEAN CORPUSCULAR HGB CONC 35 G/DL (32-36); MEAN CORPUSCULAR VOLUME 91 FL (80-99); MEAN PLATELET VOLUME 9.1 FL (7.4-10.4); MONOCYTES # (AUTO) 0.8 X 10^3 (0.0-1.0); MONOCYTES % (AUTO) 8 % (0-12); NEUTROPHILS # (AUTO) 8.5 X 10^3 (1.8-7.8); NEUTROPHILS % (AUTO) 81 % (42-75); PLATELET COUNT 375 10^3/uL (130-400); RED BLOOD COUNT 4.37 10^6/uL (4.35-5.85); RED CELL DISTRIBUTION WIDTH 13.5 % (10.0-14.5); WHITE BLOOD COUNT 10.5 10^3/uL (4.3-11.0)
[2018-01-28 19:24] LABS: ALANINE AMINOTRANSFERASE 18 U/L (0-55); ALBUMIN 4.2 GM/DL (3.2-4.5); ALKALINE PHOSPHATASE 94 U/L (40-136); BILIRUBIN,TOTAL 0.6 MG/DL (0.1-1.0); BUN/CREATININE RATIO 6; CALCIUM 9.4 MG/DL (8.5-10.1); CARBON DIOXIDE 26 MMOL/L (21-32); CHLORIDE 99 MMOL/L (98-107); CREATININE SERUM 0.84 MG/DL (0.60-1.30); GFR ESTIMATED > 60; GLUCOSE 101 MG/DL (70-105); POTASSIUM 3.2 MMOL/L (3.6-5.0); SALICYLATE < 5.0 MG/DL (5.0-20.0); SODIUM 136 MMOL/L (135-145); TOTAL PROTEIN 7.2 GM/DL (6.4-8.2)
[2018-01-28 19:25] LABS: ACETAMINOPHEN < 10 UG/ML (10-30)
--- NOTE | 2018-01-28 19:40 | Diagnostic Imaging Report ---
PROCEDURE: CT head and CT cervical spine without contrast. TECHNIQUE: Multiple contiguous axial images were obtained through the brain and cervical spine without the use of intravenous contrast. Sagittal and coronal reformations through the cervical spine were then performed. INDICATION: Fall. Comparison is made with prior CT from 09/11/2017. CT head: The ventricles and sulci are within normal limits. No sulcal effacement is seen. No acute intra-axial or extra-axial hemorrhage is seen. Cisterns are patent. The visualized paranasal sinuses are clear. IMPRESSION: No acute intracranial process is identified. CT cervical spine: There is straightening of the normal cervical lordotic curvature. There is significant degenerative disc disease at the C5-6 level with disc space narrowing and marginal spurring. No fractures are identified. The odontoid is intact. The prevertebral tissues are unremarkable. IMPRESSION: Cervical spondylosis. No acute bony abnormality is detected. Dictated by: Dictated on workstation # [id number]
[2018-01-28] MEDS ORDERED: ZIPRASIDONE 20 MG (GEODON) CAP PO ONE (20:00)
[2018-01-28 20:22] LABS: BILIRUBIN,URINE NEGATIVE (NEGATIVE); CLARITY,URINE CLEAR; COLOR,URINE YELLOW; GLUCOSE, URINE (UA) NEGATIVE (NEGATIVE); KETONES,URINE NEGATIVE (NEGATIVE); LEUKOCYTE ESTERASE ,URINE 2+ (NEGATIVE); NITRITE,URINE NEGATIVE (NEGATIVE); PH,URINE 7 (5-9); PROTEIN,URINE NEGATIVE (NEGATIVE); UROBILINOGEN,URINE NORMAL (NORMAL)
[2018-01-28 20:30] LABS: BACTERIA,URINE MODERATE /HPF
[2018-01-28 20:38] LABS: HCG,QUALITATIVE URINE NEGATIVE (NEGATIVE)
[2018-01-28 20:39] LABS: AMPHETAMINE SCREEN, URINE NEGATIVE (NEGATIVE); BARBITURATE SCREEN URINE NEGATIVE (NEGATIVE); BENZODIAZEPINES SCREEN URINE NEGATIVE (NEGATIVE); CANNABINOID SCREEN, URINE NEGATIVE (NEGATIVE); COCAINE SCREEN URINE NEGATIVE (NEGATIVE); METHADONE STAT NEGATIVE (NEGATIVE); METHAMPHETAMINE SCREEN URINE S NEGATIVE (NEGATIVE); OPIATE SCREEN URINE NEGATIVE (NEGATIVE); OXYCODONE STAT NEGATIVE (NEGATIVE); PROPOXYPHENE STAT NEGATIVE (NEGATIVE); TRICYCLIC ANTIDEPRESSANTS SCRE POSITIVE (NEGATIVE)
[2018-01-28] MEDS ORDERED: CEPH-507 PO (21:04)
[2018-01-28 21:59] VITALS: BP 120/86
== END 2018-01-28 21:59 | disposition home or self-care (01) ==
LOC: EDUNIT# 18:16 → ER 18:17
DX: F29 Unspecified psychosis not due to a substance or known physiological condition (principal); N39.0 Urinary tract infection, site not specified; S00.93XA Contusion of unspecified part of head, initial encounter; E78.00 Pure hypercholesterolemia, unspecified; G40.909 Epilepsy, unspecified, not intractable, without status epilepticus; F43.10 Post-traumatic stress disorder, unspecified; F41.9 Anxiety disorder, unspecified; F31.9 Bipolar disorder, unspecified; F20.9 Schizophrenia, unspecified; F12.10 Cannabis abuse, uncomplicated; F17.210 Nicotine dependence, cigarettes, uncomplicated; Z98.890 Other specified postprocedural states; Z98.51 Tubal ligation status; Z87.01 Personal history of pneumonia (recurrent); Z86.711 Personal history of pulmonary embolism; Z87.820 Personal history of traumatic brain injury; Z79.01 Long term (current) use of anticoagulants; Z79.51 Long term (current) use of inhaled steroids; W19.XXXA Unspecified fall, initial encounter
CPT/HCPCS: 36415; 70450; 72125; 80053; 80306; 80320; 80329; 81000; 84443; 84703; 85025; 87088; 93005

== ENCOUNTER 2018-02-02 15:09 | Emergency (ER) | payer OTHER ==
[~2018-02-02] VITALS: Ht 170.2 cm; Wt 85.7 kg
[~2018-02-02 15:09] MED LIST changes: +CEPH-507 PO
[2018-02-02] MEDS ORDERED: NS IV 1000 ML 1,000 ML IV SCH (15:13)
--- OUTSIDE RECORDS SUMMARY | 2018-02-02 15:14 | XMS REPORT | Clinical Summary ---
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 If you do not see the information that you expected, contact Release of Information in the Health Information Management department at [phone] for further assistance in locating additional records.[facility] Allergies No Known Allergies Current Medications [...] 36.8 C (98.2 F) 06/06/2016 1:24 PM [employer] Respiratory Rate - - Oxygen Saturation 100% [...] 08/24/2013 VACCINE (1 of 2) INFLUENZA VACCINE 12/03/2017 Results Not on filefrom Last 3 Months
[2018-02-02] MEDS ORDERED: DEXTROSE 50% 50 ML (IMS) SYR IV ONE (15:15)
--- NOTE | 2018-02-02 15:16 | ED Neurological Problem ---
General Stated Complaint: SEIZURE Source: patient, EMS Exam Limitations: no limitations History of Present Illness Date Seen by Provider: Feb 02, 2018 Time Seen by Provider: 15:10 Initial Comments Patient presents to ER by EMS with chief complaint she was at the [employer] lasting tremors being in the [employer] store and in give witnessed her have a seizure and fall striking her head on the left side against the pavement. EMS arrived and said that they saw private 100 cc or less total blood loss. The scalp is now hemostatic with a dressing applied by EMS. She is put in a c-collar and brought in in a postictal state. Her blood sugar en route was 56 but EMS was unable to establish a good IV and cannot deliver any glucose for her. Patient has a little bit of pain in her left elbow and her left parietal scalp. Allergies and Home Medications Allergies Coded Allergies: No Known Drug Allergies (Unverified , 06/09/14) Home Medications Amitriptyline HCl 75 Mg Tablet, 150 MG PO HS, (Reported) TAKES 2 (75 MG) TABLETS Apixaban 2.5 Mg Tablet, 2.5 MG PO BID, (Reported) Atorvastatin Calcium 40 Mg Tablet, 20 MG PO HS, (Reported) TAKES 1/2 (40MG) TABLET Cephalexin 500 Mg Capsule, 500 MG PO BID Prescribed by: NOAH ARANDA on 01/28/182103 Clonazepam 1 Mg Tablet, 1 MG PO DAILY PRN for ANXIETY, (Reported) Cyclobenzaprine HCl 5 Mg Tablet, 5 MG PO TID PRN for PAIN-MILD TO MODERATE Prescribed by: HUMAIRA HARVEY on 01/25/188 Docusate Sodium 100 Mg Capsule, 100 MG PO BID PRN for CONSTIPATION-1ST LINE, ( Reported) Fluticasone/Salmeterol 12 Gm Hfa.aer.ad, 2 PUFF IH RTBID Prescribed by: IRA HOPKINS on 09/17/17 0804 Gabapentin 600 Mg Tablet, 1,200 MG PO TID, (Reported) TAKES 2 (600 MG) TABLETS Lamotrigine 200 Mg Tablet, 200 MG PO BID, (Reported) Patient Home Medication List Home Medication List Reviewed: Yes Review of Systems Review of Systems Constitutional: No chills, No fever Eyes: Denies Blindness, Denies Drainage, Denies Pain, Denies Photophobia Ears, Nose, Mouth, Throat: denies ear pain, denies ear discharge Respiratory: No cough, No short of breath Cardiovascular: No chest pain, No edema Gastrointestinal: No abdominal pain, No constipation, No nausea Genitourinary: No discharge, No dysuria Musculoskeletal: No back pain; joint pain (Left elbow) Past Hulipzg-Dzvocq-Nyocou Hx Patient Social History Alcohol Use: Denies Use Recreational Drug Use: Yes Drug of Choice: MARIJUANA, opioids Type Used: Cigarettes Recent Foreign Travel: No Contact w/Someone Who Travel: No Recent Hopitalizations: No Immunizations Up To Date Tetanus Booster (TDap): Less than 5yrs Seasonal Allergies Seasonal Allergies: No Past Medical History Surgeries: Yes (FACE) Section, Orthopedic, Tubal Ligation Respiratory: Yes (BILATERAL P.E. 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 Genitourinary: No Gastrointestinal: No Musculoskeletal: Yes (FACIAL PAIN) Chronic Back Pain Endocrine: No HEENT: No Cancer: No Psychosocial: Yes Anxiety, PTSD, Bipolar, Personality Disorder, Schizophrenia, Depression Integumentary: No Blood Disorders: No Family Medical History Alcoholism 19 FATHER Arthritis 19 MOTHER FH: bipolar disorder No Pertinent Family Hx, Psychiatric Problems Physical Exam Vital Signs Vital Signs - First Documented 02/02/18 15:25 Temp 97.0 Pulse 79 Resp 18 B/P (MAP) 145/87 (106) Pulse Ox 98 O2 Delivery Room Air Capillary Refill : Height, Weight, BMI Height: 5'4.00" Weight: 175lbs. 0.0oz. [id number]; 30.3 BMI Method:Stated General Appearance: WD/WN, no apparent distress HEENT: PERRL/EOMI, normal ENT inspection, TMs normal, pharynx normal, other ( laceration left scalp parietal) Neck: non-tender, full range of motion, supple, normal inspection, other ( after cervical collar cleared) Respiratory: lungs clear, normal breath sounds, no respiratory distress, no accessory muscle use Cardiovascular: normal peripheral pulses, regular rate, rhythm Gastrointestinal: normal bowel sounds, non tender, soft Extremities: normal range of motion, non-tender, normal inspection, normal capillary refill Neurologic/Psychiatric: no motor/sensory deficits, alert, normal mood/affect, oriented x 3 Crainal Nerves: normal hearing, normal speech, PERRL Coordination/Gait: normal finger to nose Motor/Sensory: no motor deficit, no sensory deficit Skin: normal color, warm/dry, other (laceration on left parietal scalp about 2 cm linear and into the subcutaneous soft tissue. Small 1 cm laceration on the elbow into subcutaneous tissue) Procedures/Interventions Wound Location: Scalp Wound's Depth, Shape: linear, sub Q Wound Explored: clean Betadine Prep?: Yes (chlorhexadine) Anesthesia: 1% Lidocaine Volume Anesthetic (ccs): 4 Wound Debrided: minimal Staple Repair: Stapler 35W Number of Sutures: 5 Layer Closure?: 1 Progress The patient's hair was reflected and her wound was thoroughly cleaned with chlorhexidine soap water and then infiltrated with 4 cc of 1% lidocaine using a 23-gauge 1 inch needle and then 5 adwoa were applied causing hemostasis and good approximation of the skin edges. The patient tolerated the procedure well. Wound Location: Upper Extremities Other Wound Location Extensor surface of the left elbow Wound Length (cm): 1 Wound's Depth, Shape: sub Q Wound Explored: clean Anesthesia: 1% Lidocaine Volume Anesthetic (ccs): 1 Wound Debrided: minimal Suture: Prolene Suture Size: 4-0 Number of Sutures: 2 Layer Closure?: 1 Progress Patient's wound was cleaned thoroughly with chlorhexidine soap water and infiltrated with 1 cc of 1% lidocaine without epinephrine. She was Then approximated and closed with 2 simple, interrupted stitches using Prolene 4-0. The patient tolerated the procedure well. Progress/Results/Core Measures Results/Orders Lab Results Laboratory Tests Test 02/02/18 15:20 02/02/18 15:37 02/02/18 16:31 Range/Units Glucometer 68 L 81 70-110 MG/DL White Blood Count 9.7 4.3-11.0 10^3/uL Red Blood Count 3.99 L 4.35-5.85 10^6/uL Hemoglobin 12.5 11.5-16.0 G/DL Hematocrit 38 35-52 % Mean Corpuscular Volume 94 80-99 FL Mean Corpuscular Hemoglobin 31 25-34 PG Mean Corpuscular Hemoglobin Concent 33 32-36 G/DL Red Cell Distribution Width 13.6 10.0-14.5 % Platelet Count 416 H 130-400 10^3/uL Mean Platelet Volume 9.1 7.4-10.4 FL Neutrophils (%) (Auto) 64 42-75 % Lymphocytes (%) (Auto) 25 12-44 % Monocytes (%) (Auto) 8 0-12 % Eosinophils (%) (Auto) 2 0-10 % Basophils (%) (Auto) 0 0-10 % Neutrophils # (Auto) 6.3 1.8-7.8 X 10^3 Lymphocytes # (Auto) 2.5 1.0-4.0 X 10^3 Monocytes # (Auto) 0.8 0.0-1.0 X 10^3 Eosinophils # (Auto) 0.2 0.0-0.3 10^3/uL Basophils # (Auto) 0.0 0.0-0.1 10^3/uL Sodium Level 140 135-145 MMOL/L Potassium Level 3.0 L 3.6-5.0 MMOL/L Chloride Level 101 98-107 MMOL/L Carbon Dioxide Level 29 21-32 MMOL/L Anion Gap 10 5-14 MMOL/L Blood Urea Nitrogen 6 L 7-18 MG/DL Creatinine 0.72 0.60-1.30 MG/DL Estimat Glomerular Filtration Rate > 60 BUN/Creatinine Ratio 8 Glucose Level 87 70-105 MG/DL Calcium Level 8.7 8.5-10.1 MG/DL Corrected Calcium 9.0 8.5-10.1 MG/DL Total Bilirubin 0.3 0.1-1.0 MG/DL Aspartate Amino Transf (AST/SGOT) 15 5-34 U/L Alanine Aminotransferase (ALT/SGPT) 16 0-55 U/L Alkaline Phosphatase 74 40-136 U/L Total Protein 6.3 L 6.4-8.2 GM/DL Albumin 3.6 3.2-4.5 GM/DL Serum Alcohol < 10 <10 MG/DL My Orders Orders - PATRICIA CORREA Ct Head/Cervical Spine Wo (02/02/18 15:13) Alcohol (02/02/18 15:13) Cbc With Automated Diff (02/02/18 15:13) Comprehensive Metabolic Panel (02/02/18 15:13) Drug Screen Stat (Urine) (02/02/18 15:13) Ua Culture If Indicated (02/02/18 15:13) Elbow, Left, 3 Views (02/02/18 15:13) Saline Lock/Iv-Start (02/02/18 15:13) Ns Iv 1000 Ml (Sodium Chloride 0.9%) (02/02/18 15:13) D50w (Emergency) Syringe (Dextrose 50% 5 (02/02/18 15:15) Accucheck Stat ONCE (02/02/18 15:15) Accucheck Stat ONCE (02/02/18 15:53) Fentanyl Injection (Sublimaze Injection (02/02/18 16:45) Fentanyl Injection (Sublimaze Injection (02/02/18 16:41) Lidocaine 1% Inj 20 Ml (Xylocaine 1% Inj (02/02/18 17:00) Potassium Chloride (Tablet) (K Dur Table (02/02/18 17:45) Medications Given in ED Current Medications Medications Dose Ordered Sig/Christian Route Start Time Stop Time Status Last Admin Dose Admin Dextrose 25 ml ONCE ONCE IV 02/02/18 15:15 02/02/18 15:16 DC 02/02/18 15:42 25 ML Fentanyl Citrate 50 mcg ONCE ONCE IVP 02/02/18 16:45 02/02/18 16:46 DC 02/02/18 16:51 50 MCG Vital Signs/I&O 02/02/18 15:25 Temp 97.0 Pulse 79 Resp 18 B/P (MAP) 145/87 (106) Pulse Ox 98 O2 Delivery Room Air Progress Progress Note : Time: 17:15 Progress Note Cervical collar cleared by imaging and clinical exam. Nontender and full range of motion. Patient does not member her medicines other than she takes gabapentin. She denies taking any blood thinners. We will put her back to primary care for management of her seizure medicines. Diagnostic Imaging Diagonstic Imaging: Xray Plain Films/CT/US/NM/MRI: elbow (L) Comments VIA [facility]. [place], [place] NAME: RENATO NEGRON Breann MED REC#: [id number] PT STATUS: REG ER : 1965 PHYSICIAN: PATRICIA CORREA MD ADMIT DATE: 02/02/18/ER Draft Date of Exam:02/02/18 ELBOW, LEFT, 3 VIEWS EXAMINATION: Left elbow, 3 views. COMPARISON: None. HISTORY: 52-year-old female with injury and left elbow pain. FINDINGS: There is no elbow joint effusion. There is very mild soft tissue swelling posteriorly. There is no radiopaque foreign body. 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 There is an ossification anteriorly measuring 5 x 4 mm in size which potentially could relate to an intra-articular ossified body. There is no identified acute fracture. There is no elbow joint dislocation. IMPRESSION: 1. No identified acute fracture, elbow joint effusion, or elbow joint dislocation. 2. 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 Dictated on workstation # [id number] Dict: 02/02/181614 Trans: 02/02/181617 [id number] Interpreted by: GEOVANNA WILDER MD Electronically signed by: Reviewed: Reviewed by Me Consults : Consulting Physician: ITZEL TAY DO Consults Notes The patient has many health listed as the people who have admitted her the last several times so we called Dr. Tay and she said that she would have the schedulers call the patient right now the patient in the ER to get set up for an appointment tomorrow. We'll have her bleeding bring all of her medications to the appointment so that they can make review of her medicines and recommendations. It seems that the [facility] and get a copy of the patient's pharmacy records. A review of records by Dr. Tay demonstrate the patient mostly uses [facility] for mental health and feeling some scripts and has not seen one the primary care doctor's for [address] Loomis. Departure Impression Primary Impression: Seizure Additional Impressions: Laceration of scalp Qualified Codes: S01.01XA - Laceration without foreign body of scalp, initial encounter Laceration of elbow, left Qualified Codes: S51.012A - Laceration without foreign body of left elbow, initial encounter Disposition: 01 HOME, SELF-CARE Condition: Improved Departure-Patient Inst. Decision time for Depature: 17:41 Referrals: [facility] (PCP/Family) Primary Care Physician Patient Instructions: Laceration Infection (DC), Laceration Repair With [place] (DC) Add. Discharge Instructions: Keep the wounds clean with regular soap and water and dressed with a Band-Aid. It's okay to bathe. Do not swimming or submerse your elbow or head until after the adwoa are out in 10 days. Scripts Sulfamethoxazole/Trimethoprim (Bactrim Ds Tablet) 1 Each Tablet 1 EACH PO BID for 3 Days, #6 TAB 0 Refills Prov: PATRICIA CORREA 02/02/18 Copy Copies To 1: COSMO LOOMIS TITUS J Feb 02, 2018 15:16
[2018-02-02 15:42] LABS: BASOPHILS % (AUTO) 0 % (0-10); EOSINOPHILS # (AUTO) 0.2 10^3/uL (0.0-0.3); EOSINOPHILS % (AUTO) 2 % (0-10); HEMATOCRIT 38 % (35-52); HEMOGLOBIN 12.5 G/DL (11.5-16.0); LYMPHOCYTES # (AUTO) 2.5 X 10^3 (1.0-4.0); LYMPHOCYTES % (AUTO) 25 % (12-44); MEAN CORPUSCULAR HEMOGLOBIN 31 PG (25-34); MEAN CORPUSCULAR HGB CONC 33 G/DL (32-36); MEAN CORPUSCULAR VOLUME 94 FL (80-99); MEAN PLATELET VOLUME 9.1 FL (7.4-10.4); MONOCYTES # (AUTO) 0.8 X 10^3 (0.0-1.0); MONOCYTES % (AUTO) 8 % (0-12); NEUTROPHILS # (AUTO) 6.3 X 10^3 (1.8-7.8); NEUTROPHILS % (AUTO) 64 % (42-75); PLATELET COUNT 416 10^3/uL (130-400); RED BLOOD COUNT 3.99 10^6/uL (4.35-5.85); RED CELL DISTRIBUTION WIDTH 13.6 % (10.0-14.5); WHITE BLOOD COUNT 9.7 10^3/uL (4.3-11.0)
[2018-02-02 16:05] LABS: ALANINE AMINOTRANSFERASE 16 U/L (0-55); ALBUMIN 3.6 GM/DL (3.2-4.5); ALKALINE PHOSPHATASE 74 U/L (40-136); BILIRUBIN,TOTAL 0.3 MG/DL (0.1-1.0); BUN/CREATININE RATIO 8; CALCIUM 8.7 MG/DL (8.5-10.1); CARBON DIOXIDE 29 MMOL/L (21-32); CHLORIDE 101 MMOL/L (98-107); CREATININE SERUM 0.72 MG/DL (0.60-1.30); GFR ESTIMATED > 60; GLUCOSE 87 MG/DL (70-105); SODIUM 140 MMOL/L (135-145); TOTAL PROTEIN 6.3 GM/DL (6.4-8.2)
--- NOTE | 2018-02-02 16:19 | Diagnostic Imaging Report ---
EXAMINATION: Left elbow, 3 views. COMPARISON: None. HISTORY: 52-year-old female with injury and left elbow pain. FINDINGS: There is no elbow joint effusion. There is very mild soft tissue swelling posteriorly. There is no radiopaque foreign body. 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 There is an ossification anteriorly measuring 5 x 4 mm in size which potentially could relate to an intra-articular ossified body. There is no identified acute fracture. There is no elbow joint dislocation. IMPRESSION: 1. No identified acute fracture, elbow joint effusion, or elbow joint dislocation. 2. 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 Dictated by: Dictated on workstation # [id number]
--- NOTE | 2018-02-02 16:33 | Diagnostic Imaging Report ---
PROCEDURE: CT head and CT cervical spine without contrast. TECHNIQUE: Multiple contiguous axial images were obtained through the brain and cervical spine without the use of intravenous contrast. Sagittal and coronal reformations through the cervical spine were then performed. INDICATION: Seizure. Head injury. COMPARISON: CT head and cervical spine without contrast 01/28/2018. FINDINGS: CT head: Scalp hematoma overlying the left parietal convexity. No fractures. No intracranial hemorrhage, mass effect, hydrocephalus, or extra-axial fluid collections. No CT evidence of an acute infarction. The paranasal sinuses and mastoids are clear. CT cervical spine: Normal alignment. Vertebral body heights are preserved. No fractures. Advanced degenerative endplate changes at C4-C6. No evidence of high-grade spinal canal narrowing. There is rwaozofd-et-bptrovce neuroforaminal narrowing bilaterally at C5-C6. The visualized paravertebral soft tissues are unremarkable. IMPRESSION: 1. Scalp hematoma overlying the left parietal convexity. No fractures. 2. No acute intracranial or cervical spine CT findings. Dictated by: Dictated on workstation # [id number]
[2018-02-02] MEDS ORDERED: fentaNYL INJECTION 100 MCG/2 ML AMP ONE (16:41)
[2018-02-02] MEDS ORDERED: fentaNYL INJECTION 100 MCG/2 ML AMP IVP ONE (16:45)
[2018-02-02] MEDS ORDERED: LIDOCAINE 1% INJ 20 ML 20 ML VIAL INJ ONE (17:00)
[2018-02-02] MEDS ORDERED: KCL 20 MEQ TAB (K-DUR) PO ONE (17:45)
[2018-02-02] MEDS ORDERED: SULF1TAB35 PO ×2 (17:55→17:57)
[2018-02-02 18:18] VITALS: BP 150/88
== END 2018-02-02 18:18 | disposition home or self-care (01) ==
LOC: EDUNIT# 15:09 → ER 15:10
DX: S01.01XA Laceration without foreign body of scalp, initial encounter (principal); S51.012A Laceration without foreign body of left elbow, initial encounter; R56.9 Unspecified convulsions; E78.00 Pure hypercholesterolemia, unspecified; G40.909 Epilepsy, unspecified, not intractable, without status epilepticus; F41.9 Anxiety disorder, unspecified; F31.9 Bipolar disorder, unspecified; F43.10 Post-traumatic stress disorder, unspecified; F20.9 Schizophrenia, unspecified; F12.10 Cannabis abuse, uncomplicated; F11.10 Opioid abuse, uncomplicated; Z98.890 Other specified postprocedural states; Z86.711 Personal history of pulmonary embolism; Z87.820 Personal history of traumatic brain injury; Z87.01 Personal history of pneumonia (recurrent); Z98.51 Tubal ligation status; Z79.01 Long term (current) use of anticoagulants; Z79.51 Long term (current) use of inhaled steroids; W01.198A Fall on same level from slipping, tripping and stumbling with subsequent striking against other object, initial encounter; Y92.480 Sidewalk as the place of occurrence of the external cause
CPT/HCPCS: 36415; 70450; 72125; 73080; 80053; 80320; 82962; 85025

== ENCOUNTER 2018-02-26 18:29 | Emergency (ER) | payer OTHER ==
[~2018-02-26] VITALS: Ht 170.2 cm; Wt 85.7 kg
[~2018-02-26 18:29] MED LIST changes: +SULF1TAB35 PO
--- NOTE | 2018-02-26 18:38 | ED General ---
General Chief Complaint: Altered Mental Status Stated Complaint: AMS/SEIZURE Source of Information: EMS Exam Limitations: No Limitations History of Present Illness Date Seen by Provider: Feb 26, 2018 Time Seen by Provider: 18:36 Initial Comments To ER per EMS from home after the neighbors summoned EMS/law enforcement because they had not seen her in a few days. Patient has no complaints. She was found on the floor in her home by EMS, alert. Police were on scene and have started a protective custody case due to her psychiatric illnesses and inability to properly care for herself. [facility] is [facility]. Timing/Duration: 1-2 Days Severity: Moderate Allergies and Home Medications Allergies Coded Allergies: No Known Drug Allergies (Unverified , 06/09/14) Home Medications Amitriptyline HCl 75 Mg Tablet, 150 MG PO HS, (Reported) TAKES 2 (75 MG) TABLETS Apixaban 2.5 Mg Tablet, 2.5 MG PO BID, (Reported) Atorvastatin Calcium 40 Mg Tablet, 20 MG PO HS, (Reported) TAKES 1/2 (40MG) TABLET Cephalexin 500 Mg Capsule, 500 MG PO BID Prescribed by: NOAH ARANDA on 01/28/182103 Clonazepam 1 Mg Tablet, 1 MG PO DAILY PRN for ANXIETY, (Reported) Cyclobenzaprine HCl 5 Mg Tablet, 5 MG PO TID PRN for PAIN-MILD TO MODERATE Prescribed by: HUMAIRA HARVEY on 01/25/182147 Docusate Sodium 100 Mg Capsule, 100 MG PO BID PRN for CONSTIPATION-1ST LINE, ( Reported) Fluticasone/Salmeterol 12 Gm Hfa.aer.ad, 2 PUFF IH RTBID Prescribed by: IRA HOPKINS on 09/17/17 0804 Gabapentin 600 Mg Tablet, 1,200 MG PO TID, (Reported) TAKES 2 (600 MG) TABLETS Lamotrigine 200 Mg Tablet, 200 MG PO BID, (Reported) Sulfamethoxazole/Trimethoprim 1 Each Tablet, 1 EACH PO BID Prescribed by: PATRICIA CORREA on 02/02/18 1757 Patient Home Medication List Home Medication List Reviewed: Yes Review of Systems Review of Systems Constitutional: see HPI EENTM: see HPI Respiratory: no symptoms reported Cardiovascular: no symptoms reported Genitourinary: no symptoms reported Musculoskeletal: see HPI Skin: no symptoms reported Psychiatric/Neurological: No Symptoms Reported Hematologic/Lymphatic: No Symptoms Reported Past Cfaixvq-Jxeqeo-Dmbsdi Hx Patient Social History Drug of Choice: MARIJUANA, opioids Type Used: Cigarettes Recent Hopitalizations: No Immunizations Up To Date Tetanus Booster (TDap): Less than 5yrs Seasonal Allergies Seasonal Allergies: No Past Medical History Surgeries: Yes (FACE) Section, Orthopedic, Tubal Ligation Respiratory: Yes (BILATERAL P.E. 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 Genitourinary: No Gastrointestinal: No Musculoskeletal: Yes (FACIAL PAIN) Chronic Back Pain Endocrine: No HEENT: No Cancer: No Psychosocial: Yes Anxiety, PTSD, Bipolar, Personality Disorder, Schizophrenia, Depression Integumentary: No Blood Disorders: No Family Medical History Alcoholism 19 FATHER Arthritis 19 MOTHER FH: bipolar disorder No Pertinent Family Hx, Psychiatric Problems Physical Exam Vital Signs Vital Signs - First Documented 02/26/18 18:35 Temp 98.2 Pulse 82 Resp 18 B/P (MAP) 155/92 (113) Pulse Ox 97 O2 Delivery Room Air Capillary Refill : Height, Weight, BMI Height: 5'7.00" Weight: 189lbs. 0.0oz. 85.529293xd; 30.3 BMI Method:Stated General Appearance: No Apparent Distress, WD/WN, Other (alert, oriented to person and place. She does have some bruising about the chin as well as an abrasion. There is some yellowish to this bruising since at least a few days old. I was able to remove 5 adwoa from the left parietal scalp, uncertain when these were placed.) Eyes: Bilateral Eye Normal Inspection, Bilateral Eye PERRL HEENT: PERRL/EOMI, TMs Normal Neck: Full Range of Motion, Normal Inspection Respiratory: No Accessory Muscle Use, No Respiratory Distress, Wheezing ( diffuse faint wheezing. ) Gastrointestinal: Normal Bowel Sounds, Non Tender, Soft Extremity: Normal Capillary Refill, Normal Inspection Neurologic/Psychiatric: Alert, Oriented x3 Skin: Normal Color, Warm/Dry Procedures/Interventions Suture Size: 4-0 Progress/Results/Core Measures Suspected Sepsis SIRS Temperature: Pulse: Respiratory Rate: Laboratory Tests 02/26/18 18:45: White Blood Count 10.3 Blood Pressure / Mean: Laboratory Tests 02/26/18 18:45: Creatinine 0.93, Platelet Count 422H, Total Bilirubin 0.6 Results/Orders Lab Results Laboratory Tests Test 02/26/18 18:45 Range/Units White Blood Count 10.3 4.3-11.0 10^3/uL Red Blood Count 4.26 L 4.35-5.85 10^6/uL Hemoglobin 13.1 11.5-16.0 G/DL Hematocrit 40 35-52 % Mean Corpuscular Volume 94 80-99 FL Mean Corpuscular Hemoglobin 31 25-34 PG Mean Corpuscular Hemoglobin Concent 33 32-36 G/DL Red Cell Distribution Width 14.1 10.0-14.5 % Platelet Count 422 H 130-400 10^3/uL Mean Platelet Volume 8.9 7.4-10.4 FL Neutrophils (%) (Auto) 71 42-75 % Lymphocytes (%) (Auto) 19 12-44 % Monocytes (%) (Auto) 9 0-12 % Eosinophils (%) (Auto) 1 0-10 % Basophils (%) (Auto) 0 0-10 % Neutrophils # (Auto) 7.3 1.8-7.8 X 10^3 Lymphocytes # (Auto) 2.0 1.0-4.0 X 10^3 Monocytes # (Auto) 0.9 0.0-1.0 X 10^3 Eosinophils # (Auto) 0.1 0.0-0.3 10^3/uL Basophils # (Auto) 0.0 0.0-0.1 10^3/uL Urine Color YELLOW Urine Clarity CLEAR Urine pH 7 5-9 Urine Specific Barker 1.010 L 1.016-1.022 Urine Protein 1+ H NEGATIVE Urine Glucose (UA) NEGATIVE NEGATIVE Urine Ketones 3+ H NEGATIVE Urine Nitrite NEGATIVE NEGATIVE Urine Bilirubin NEGATIVE NEGATIVE Urine Urobilinogen 1 NORMAL MG/DL Urine Leukocyte Esterase 1+ H NEGATIVE Urine RBC (Auto) NEGATIVE NEGATIVE Urine RBC 0-2 /HPF Urine WBC 5-10 H /HPF Urine Crystals NONE /LPF Urine Bacteria LARGE H /HPF Urine Casts PRESENT /LPF Urine Hyaline Casts 5-10 H /LPF Urine Mucus NEGATIVE /LPF Urine Culture Indicated YES Sodium Level 138 135-145 MMOL/L Potassium Level 3.5 L 3.6-5.0 MMOL/L Chloride Level 101 98-107 MMOL/L Carbon Dioxide Level 22 21-32 MMOL/L Anion Gap 15 H 5-14 MMOL/L Blood Urea Nitrogen 10 7-18 MG/DL Creatinine 0.93 0.60-1.30 MG/DL Estimat Glomerular Filtration Rate > 60 BUN/Creatinine Ratio 11 Glucose Level 77 70-105 MG/DL Calcium Level 9.3 8.5-10.1 MG/DL Corrected Calcium 9.3 8.5-10.1 MG/DL Total Bilirubin 0.6 0.1-1.0 MG/DL Aspartate Amino Transf (AST/SGOT) 19 5-34 U/L Alanine Aminotransferase (ALT/SGPT) 16 0-55 U/L Alkaline Phosphatase 93 40-136 U/L Total Creatine Kinase 79 29-168 U/L Myoglobin 50.1 10.0-92.0 NG/ML Total Protein 7.1 6.4-8.2 GM/DL Albumin 4.0 3.2-4.5 GM/DL Urine Opiates Screen NEGATIVE NEGATIVE Urine Oxycodone Screen NEGATIVE NEGATIVE Urine Methadone Screen NEGATIVE NEGATIVE Urine Propoxyphene Screen NEGATIVE NEGATIVE Urine Barbiturates Screen NEGATIVE NEGATIVE Ur Tricyclic Antidepressants Screen POSITIVE H NEGATIVE Urine Phencyclidine Screen NEGATIVE NEGATIVE Urine Amphetamines Screen NEGATIVE NEGATIVE Urine Methamphetamines Screen NEGATIVE NEGATIVE Urine Benzodiazepines Screen NEGATIVE NEGATIVE Urine Cocaine Screen NEGATIVE NEGATIVE Urine Cannabinoids Screen NEGATIVE NEGATIVE My Orders Orders - HUMAIRA HARVEY APRN Ct Head/Face/Cervical Wo (02/26/18 18:35) Cbc With Automated Diff (02/26/18 18:35) Ua Culture If Indicated (02/26/18 18:35) Drug Screen Stat (Urine) (02/26/18 18:35) Iv Heplock-Insert (Order) (02/26/18 18:35) Creatine Kinase (02/26/18 18:35) Myoglobin Serum (02/26/18 18:35) Lactated Ringers (Lr 1000 Ml Iv Solution (02/26/18 18:45) Urine Culture (02/26/18 18:45) Vital Signs/I&O 02/26/18 18:35 Temp 98.2 Pulse 82 Resp 18 B/P (MAP) 155/92 (113) Pulse Ox 97 O2 Delivery Room Air Capillary Refill : Departure Communication (Admissions) I spoke with [place] police at 1942. They state that she does have running water she does not have electricity they've already reported her to the Adult Protective Services. Patient wishes to be discharged home at this time. She is medically stable alert and oriented to person place and time. Impression Primary Impression: Schizo affective schizophrenia Additional Impression: General medical examination Disposition: HOME, SELF-CARE Condition: Stable Departure-Patient Inst. Decision time for Depature: 19:34 Referrals: [facility] [facility] [place] Primary Care Physician Patient Instructions: General (DC) Add. Discharge Instructions: 1. Return to ER for any concerns 2. Follow-up with your doctor next week. HUMAIRA HARVEY [employer] Feb 26, 2018 18:38
[2018-02-26] MEDS ORDERED: LACTATED RINGERS 1,000 ML IV SCH (18:45)
[2018-02-26 18:59] LABS: BILIRUBIN,URINE NEGATIVE (NEGATIVE); CLARITY,URINE CLEAR; COLOR,URINE YELLOW; GLUCOSE, URINE (UA) NEGATIVE (NEGATIVE); KETONES,URINE 3+ (NEGATIVE); LEUKOCYTE ESTERASE ,URINE 1+ (NEGATIVE); NITRITE,URINE NEGATIVE (NEGATIVE); PH,URINE 7 (5-9); PROTEIN,URINE 1+ (NEGATIVE); UROBILINOGEN,URINE 1 MG/DL (NORMAL)
[2018-02-26 19:00] LABS: BASOPHILS % (AUTO) 0 % (0-10); EOSINOPHILS # (AUTO) 0.1 10^3/uL (0.0-0.3); EOSINOPHILS % (AUTO) 1 % (0-10); HEMATOCRIT 40 % (35-52); HEMOGLOBIN 13.1 G/DL (11.5-16.0); LYMPHOCYTES % (AUTO) 19 % (12-44); MEAN CORPUSCULAR HEMOGLOBIN 31 PG (25-34); MEAN CORPUSCULAR HGB CONC 33 G/DL (32-36); MEAN CORPUSCULAR VOLUME 94 FL (80-99); MEAN PLATELET VOLUME 8.9 FL (7.4-10.4); MONOCYTES # (AUTO) 0.9 X 10^3 (0.0-1.0); MONOCYTES % (AUTO) 9 % (0-12); NEUTROPHILS # (AUTO) 7.3 X 10^3 (1.8-7.8); NEUTROPHILS % (AUTO) 71 % (42-75); PLATELET COUNT 422 10^3/uL (130-400); RED BLOOD COUNT 4.26 10^6/uL (4.35-5.85); RED CELL DISTRIBUTION WIDTH 14.1 % (10.0-14.5); WHITE BLOOD COUNT 10.3 10^3/uL (4.3-11.0)
[2018-02-26 19:07] LABS: BACTERIA,URINE LARGE /HPF; RBC,URINE 0-2 /HPF
[2018-02-26 19:24] LABS: ALANINE AMINOTRANSFERASE 16 U/L (0-55); ALKALINE PHOSPHATASE 93 U/L (40-136); BILIRUBIN,TOTAL 0.6 MG/DL (0.1-1.0); BUN/CREATININE RATIO 11; CALCIUM 9.3 MG/DL (8.5-10.1); CARBON DIOXIDE 22 MMOL/L (21-32); CHLORIDE 101 MMOL/L (98-107); CREATINE KINASE 79 U/L (29-168); CREATININE SERUM 0.93 MG/DL (0.60-1.30); GFR ESTIMATED > 60; GLUCOSE 77 MG/DL (70-105); POTASSIUM 3.5 MMOL/L (3.6-5.0); SODIUM 138 MMOL/L (135-145); TOTAL PROTEIN 7.1 GM/DL (6.4-8.2)
[2018-02-26 19:27] LABS: AMPHETAMINE SCREEN, URINE NEGATIVE (NEGATIVE); BARBITURATE SCREEN URINE NEGATIVE (NEGATIVE); BENZODIAZEPINES SCREEN URINE NEGATIVE (NEGATIVE); CANNABINOID SCREEN, URINE NEGATIVE (NEGATIVE); COCAINE SCREEN URINE NEGATIVE (NEGATIVE); METHADONE STAT NEGATIVE (NEGATIVE); METHAMPHETAMINE SCREEN URINE S NEGATIVE (NEGATIVE); OPIATE SCREEN URINE NEGATIVE (NEGATIVE); OXYCODONE STAT NEGATIVE (NEGATIVE); PROPOXYPHENE STAT NEGATIVE (NEGATIVE); TRICYCLIC ANTIDEPRESSANTS SCRE POSITIVE (NEGATIVE)
[2018-02-26 19:30] LABS: MYOGLOBIN SERUM 50.1 NG/ML (10.0-92.0)
--- NOTE | 2018-02-26 19:33 | Diagnostic Imaging Report ---
PROCEDURE: CT head, face, and cervical spine without contrast. TECHNIQUE: Multiple contiguous axial images were obtained through the head, neck, and facial bones without the use of intravenous contrast. Sagittal and coronal reformations through the cervical spine and facial bones were also performed. INDICATION: Altered mental status, seizure, laceration to chin. CORRELATION STUDY: 02/02/2018 FINDINGS: CT HEAD: Ventricles and sulci appearing unchanged and unremarkable. No intracranial hemorrhage. No midline shift or mass effect. Basilar cisterns maintained. There has been decrease in size of the previously noted left parietal scalp hematoma. Minimal edema does remain. Bony calvarium intact. CT maxillofacial: No acute displaced maxillofacial fracture deformity. The paranasal sinuses without evidence for air-fluid level. Mandible intact. Patient with absence of large number of teeth including the maxilla. CT CERVICAL SPINE: Straightening of the normal cervical lordosis. Trace anterolisthesis C3 on C4, C4 on C5 likely degenerative. Vertebral body heights maintained. Prominent asymmetric advanced degenerative changes are present particularly at the C5-C6 level. Prominent osteophytes does result in osseous encroachment upon the neuroforamina and spinal canal. Posterior elements intact and normal in alignment. Odontoid intact. Asymmetric degenerative changes at C4-C5 level as well. IMPRESSION: CT HEAD: 1. Negative for acute intracranial abnormality. CT maxillofacial: 1. Negative for acute displaced maxillofacial fracture. CT CERVICAL SPINE: 1. Negative for acute fracture or traumatic subluxation. Dictated by: Dictated on workstation # [id number]
[2018-02-26 20:08] VITALS: BP 155/92
[2018-02-27] MEDS ORDERED: RISP1TAB3 PO (14:02)
== END 2018-02-26 20:10 | disposition home or self-care (01) ==
LOC: EDUNIT# 18:29 → ER 18:30
DX: F25.9 Schizoaffective disorder, unspecified (principal); E78.00 Pure hypercholesterolemia, unspecified; G40.909 Epilepsy, unspecified, not intractable, without status epilepticus; F41.9 Anxiety disorder, unspecified; F43.10 Post-traumatic stress disorder, unspecified; F31.9 Bipolar disorder, unspecified; F12.10 Cannabis abuse, uncomplicated; F11.10 Opioid abuse, uncomplicated; Z98.51 Tubal ligation status; Z86.711 Personal history of pulmonary embolism; Z87.01 Personal history of pneumonia (recurrent); Z98.890 Other specified postprocedural states; Z87.828 Personal history of other (healed) physical injury and trauma; Z90.710 Acquired absence of both cervix and uterus; Z79.01 Long term (current) use of anticoagulants; Z79.51 Long term (current) use of inhaled steroids
CPT/HCPCS: 36415; 51701; 70450; 70486; 72125; 80053; 80306; 81000; 82550; 83874; 85025; 87077; 87088; 87186; 96360

== ENCOUNTER 2018-02-27 00:02 | Inpatient (IN) | payer OTHER ==
[2018-02-27] VITALS (9 sets, daily range): BP systolic 103–154; BP diastolic 50–91
[~2018-02-27] VITALS: Ht 170.2 cm; Wt 78.9 kg
--- NOTE | 2018-02-27 00:20 | ED Fall/Injury ---
General Chief Complaint: Trauma-Non Activation Stated Complaint: SEIZURE,FALL Source: patient, EMS, old records Exam Limitations: no limitations History of Present Illness Date Seen by Provider: Feb 26, 2018 Time Seen by Provider: 23:57 Initial Comments Patient presents to ER by EMS with chief complaint that she got home from the ER earlier today and was found after having a fall from seizure and having a little abrasions and on her face by her neighbor. They called EMS again brought her back in here. She still postictal. She says she is taking her medications but she can't tell what they are right now. She is denying any pain anywhere but her face. She denies neck pain nausea chest pain shortness of breath abdominal pain diarrhea or constipation. Allergies and Home Medications Allergies Coded Allergies: No Known Drug Allergies (Unverified , 06/09/14) Home Medications Amitriptyline HCl 75 Mg Tablet, 150 MG PO HS, (Reported) TAKES 2 (75 MG) TABLETS Apixaban 2.5 Mg Tablet, 2.5 MG PO BID, (Reported) Atorvastatin Calcium 40 Mg Tablet, 20 MG PO HS, (Reported) TAKES 1/2 (40MG) TABLET Cephalexin 500 Mg Capsule, 500 MG PO BID Prescribed by: NOAH ARANDA on 01/28/182103 Clonazepam 1 Mg Tablet, 1 MG PO DAILY PRN for ANXIETY, (Reported) Cyclobenzaprine HCl 5 Mg Tablet, 5 MG PO TID PRN for PAIN-MILD TO MODERATE Prescribed by: HUMAIRA HARVEY on 01/25/18 2148 Docusate Sodium 100 Mg Capsule, 100 MG PO BID PRN for CONSTIPATION-1ST LINE, ( Reported) Fluticasone/Salmeterol 12 Gm Hfa.aer.ad, 2 PUFF IH RTBID Prescribed by: IRA HOPKINS on 09/17/17 0804 Gabapentin 600 Mg Tablet, 1,200 MG PO TID, (Reported) TAKES 2 (600 MG) TABLETS Lamotrigine 200 Mg Tablet, 200 MG PO BID, (Reported) Sulfamethoxazole/Trimethoprim 1 Each Tablet, 1 EACH PO BID Prescribed by: PATRICIA CORREA on 02/02/18 1757 Patient Home Medication List Home Medication List Reviewed: Yes Review of Systems Review of Systems Constitutional: No chills, No diaphoresis Eyes: Denies Blindness, Denies Blurred Vision Ears, Nose, Mouth, Throat: denies ear pain, denies ear discharge Respiratory: No cough, No short of breath Cardiovascular: No chest pain, No edema Gastrointestinal: No abdominal pain, No constipation Past Yhggnvl-Mapawo-Evhmnz Hx Patient Social History Alcohol Use: Denies Use Recreational Drug Use: Yes Drug of Choice: MARIJUANA, opioids Smoking Status: Current Everyday Smoker Type Used: Cigarettes Recent Foreign Travel: No Contact w/Someone Who Travel: No Recent Hopitalizations: No Immunizations Up To Date Tetanus Booster (TDap): Less than 5yrs Seasonal Allergies Seasonal Allergies: No Past Medical History Surgeries: Yes (FACE) Section, Orthopedic, Tubal Ligation Respiratory: Yes (BILATERAL P.E. 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 Genitourinary: No Gastrointestinal: No Musculoskeletal: Yes (FACIAL PAIN) Chronic Back Pain Endocrine: No HEENT: No Cancer: No Psychosocial: Yes Anxiety, PTSD, Bipolar, Personality Disorder, Schizophrenia, Depression Integumentary: No Blood Disorders: No Family Medical History Alcoholism 19 FATHER Arthritis 19 MOTHER FH: bipolar disorder No Pertinent Family Hx, Psychiatric Problems Physical Exam Vital Signs Vital Signs - First Documented 02/27/18 00:02 Temp 97.6 Pulse 85 Resp 19 B/P (MAP) 149/83 (105) Pulse Ox 92 O2 Delivery Room Air Capillary Refill : Height, Weight, BMI Height: 5'7.00" Weight: 189lbs. 0.0oz. 85.484375ni; 30.3 BMI Method:Stated General Appearance: other (disheveled, postictal) HEENT: PERRL/EOMI, normal ENT inspection, TMs normal, pharynx normal, other ( abrasions over the left eyebrow and left side of her chin with negative hemotympanum, collazo sign, raccoon eyes.) Neck: non-tender, full range of motion, supple, normal inspection Cardiovascular: normal peripheral pulses, regular rate, rhythm Respiratory: chest non-tender, normal breath sounds, no respiratory distress, no accessory muscle use, decreased breath sounds, wheezing (faint) Peripheral Pulses: 2+ Radial Pulses (R), 2+ Radial Pulses (L) Gastrointestinal: normal bowel sounds, non tender, soft Neurologic/Psychiatric: no motor/sensory deficits, alert, normal mood/affect, oriented x 3 (oriented to person and place but not time or situation) Procedures/Interventions Suture Size: 4-0 Progress/Results/Core Measures Results/Orders My Orders Orders - PATRICIA CORREA Ct Head/Face/Cervical Wo (02/27/18 00:14) Lamotrigine Tablet (Lamictal Tablet) (02/27/18 00:30) Albuterol/Ipra Inhalation Soln (Duoneb I (02/27/18 00:30) Svn Small Volume Nebulizer (02/27/18 00:21) Medications Given in ED Current Medications Medications Dose Ordered Sig/Christian Route Start Time Stop Time Status Last Admin Dose Admin Albuterol/ Ipratropium 3 ml ONCE ONCE INH 02/27/18 00:30 02/27/18 00:31 DC 02/27/18 01:06 3 ML Lamotrigine 200 mg ONCE ONCE PO 02/27/18 00:30 02/27/18 00:31 DC 02/27/18 01:06 200 MG Vital Signs/I&O 02/27/18 02/27/18 02/27/18 00:02 00:02 01:11 Temp 97.6 97.6 Pulse 85 85 Resp 19 B/P (MAP) 149/83 (105) 149/83 (105) Pulse Ox 92 99 O2 Delivery Room Air Room Air Progress Progress Note : Time: 00:18 Progress Note Plan to give her Lamotrigine, a DuoNeb and did a CT of her head neck and face. We'll consider how she is doing after all this testing is done in terms of whether she should go back home. Apparently she lives alone. A review of her labs from just a few hours ago when she was here in the ER demonstrates squames and white blood cells seen on urinalysis but no obvious urinary tract infection. Most likely this is contamination however with her increased falls, seizures we should consider the possibility of a UTI. Diagnostic Imaging Diagonstic Imaging: CT (without contrast) Plain Films/CT/US/NM/MRI: c-spine, head (face) Comments No acute findings of the head. There is age indeterminate nasal bone fractures seen in the face and no acute findings of the C-spine. Reviewed: Reviewed Night Hawk Study (stat read), Reviewed by Me Departure Communication (Admissions) Time/Spoke to Admitting Phy: 01:33 Discussed case lab imaging findings with Dr. Smith and she agrees to observe the patient overnight. Consult hospital social worker. She would like the patient in the ICU. Impression Primary Impression: Epilepsy Qualified Codes: G40.909 - Epilepsy, unspecified, not intractable, without status epilepticus Additional Impressions: Fall Qualified Codes: W19.XXXA - Unspecified fall, initial encounter Abrasion head Nasal bones, closed fracture Qualified Codes: S02.2XXA - Fracture of nasal bones, initial encounter for closed fracture Disposition: ADMITTED INPATIENT Condition: Stable Admissions Decision to Admit Reason: Admit from ER (General) Decision to Admit/Date: Feb 27, 2018 Time/Decision to Admit Time: 01:41 Departure-Patient Inst. Referrals: [facility] (PCP/Family) Primary Care Physician Copy Copies To 1: COSMO FUENTES TITUS J Feb 27, 2018 00:20
[2018-02-27] MEDS ORDERED: RT-ALBUTEROL/IPRATROPIUM 3 ML (DUONEB) VIAL INH ONE (00:30)
[2018-02-27] MEDS ORDERED: GABAPENTIN 300 MG (NEURONTIN) CAP PO ONE (01:45)
[2018-02-27] MEDS ORDERED: RT-ALBUTEROL/IPRATROPIUM 3 ML (DUONEB) VIAL INH PRN (03:45)
--- NOTE | 2018-02-27 05:37 | Pulmonary Consultation ---
History of Present Illness History of Present Illness Date of Consultation 02/27/18 05:36 Time Seen by Provider: 05:57 Date of Admission History of Present Illness 52yo with hx of BiPolar, seizures presented to ED via EMS s/p fall after having seizure. She was found by her neighbor who called EMS. In the ED she appeared postictal. Currently she is doing better however she is complaining of MARTINO and generalized pain. Currently she denies SOB or CP. RN states pt was initially very agitated however after getting some sleep she is more pleasant. She tells me that she often forgets to take her home meds. Allergies and Home Medications Allergies Coded Allergies: No Known Drug Allergies (Unverified , 06/09/14) Home Medications Amitriptyline HCl 75 Mg Tablet, 150 MG PO HS, (Reported) TAKES 2 (75 MG) TABLETS Apixaban 2.5 Mg Tablet, 2.5 MG PO BID, (Reported) Atorvastatin Calcium 40 Mg Tablet, 20 MG PO HS, (Reported) TAKES 1/2 (40MG) TABLET Cephalexin 500 Mg Capsule, 500 MG PO BID Prescribed by: NOAH ARANDA on 01/28/182103 Clonazepam 1 Mg Tablet, 1 MG PO DAILY PRN for ANXIETY, (Reported) Cyclobenzaprine HCl 5 Mg Tablet, 5 MG PO TID PRN for PAIN-MILD TO MODERATE Prescribed by: HUMAIRA HARVEY on 01/25/182147 Docusate Sodium 100 Mg Capsule, 100 MG PO BID PRN for CONSTIPATION-1ST LINE, ( Reported) Fluticasone/Salmeterol 12 Gm Hfa.aer.ad, 2 PUFF IH RTBID Prescribed by: IRA HOPKINS on 09/17/17 0804 Gabapentin 600 Mg Tablet, 1,200 MG PO TID, (Reported) TAKES 2 (600 MG) TABLETS Lamotrigine 200 Mg Tablet, 200 MG PO BID, (Reported) Sulfamethoxazole/Trimethoprim 1 Each Tablet, 1 EACH PO BID Prescribed by: PATRICIA CORREA on 02/02/18 1757 Past Xarncla-Mkuawt-Awzenb Hx Patient Social History Alcohol Use: Denies Use Recreational Drug Use: Yes Drug of Choice: MARIJUANA, opioids Smoking Status: Current Everyday Smoker Type Used: Cigarettes Recent Foreign Travel: No Contact w/Someone Who Travel: No Recent Infectious Disease Expo: No Recent Hopitalizations: No Physical Abuse: No Sexual Abuse: No Mistreated: No Fear: No Immunizations Up To Date Tetanus Booster (TDap): Less than 5yrs Seasonal Allergies Seasonal Allergies: No Past Medical History Surgeries: Yes (FACE) Section, Orthopedic, Tubal Ligation Respiratory: Yes (BILATERAL P.E. 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: No Gastrointestinal: No Musculoskeletal: Yes (FACIAL PAIN) Chronic Back Pain Endocrine: No HEENT: No Cancer: No Psychosocial: Yes Anxiety, PTSD, Bipolar, Personality Disorder, Schizophrenia, Depression Integumentary: No Blood Disorders: No Family Medical History Alcoholism 19 FATHER Arthritis 19 MOTHER FH: bipolar disorder No Pertinent Family Hx, Psychiatric Problems Review of Systems Time Seen by Provider: 06:16 Constitutional: Weakness, Malaise; No: Fever, Chills, Sweats, Other Eyes: No: Pain, Vision change, Conjunctivae inflammation, Eyelid inflammation, Other, Redness ENT: No: Ear pain, Ear discharge, Nose pain, Nose discharge, Nose congestion, Mouth pain, Mouth swelling, Throat pain, Throat swelling, Other Respiratory: Shortness of breath, SOB with excertion; No: Cough, Dry, Wheezing , Hemoptysis, Pleuritic Pain, Sputum, Wheezing, Other Cardiovascular: No: Chest Pain, Palpitations, Orthopnea, Paroxysmal Noc. Dyspnea, Edema, Lt Headedness, Other Gastrointestinal: Abdominal Pain; No: Nausea, Vomiting, Diarrhea, Constipation , Melena, Hematochezia, Other Neurological: Weakness Sepsis Event Evaluation Height, Weight, BMI Height: 5'7.00" Weight: 174lbs. 0.0oz. 78.799262pm; 27.3 BMI Method:Stated Exam Exam Vital Signs Date Time Temp Pulse Resp B/P (MAP) Pulse Ox O2 Delivery O2 Flow Rate FiO2 02/27/18 04:08 93 Room Air 02/27/18 03:28 89 95 21 02/27/18 02:49 89 02/27/18 02:37 95 Room Air 02/27/18 02:15 97.6 85 19 107/58 (74) 99 Room Air 10/26/18 01:11 99 Room Air 02/27/18 00:02 97.6 85 19 149/83 (105) 92 Room Air 02/27/18 00:02 97.6 85 149/83 (105) Height & Weight Height: 5'7.00" Weight: 174lbs. 0.0oz. 78.126472ak; 27.3 BMI Method:Stated General Appearance: No Apparent Distress, WD/WN, Anxious HEENT: PERRL/EOMI, Normal ENT Inspection, Pharynx Normal Neck: Full Range of Motion, Normal Inspection, Supple Respiratory: Chest Non Tender, Lungs Clear, Normal Breath Sounds, No Accessory Muscle Use, No Respiratory Distress Cardiovascular: Regular Rate, Rhythm, No Edema Capillary Refill: Less Than 3 Seconds Peripheral Pulses: 2+ Radial Pulses (R), 2+ Radial Pulses (L) Gastrointestinal: normal bowel sounds, non tender, soft Extremity: Normal Capillary Refill, Normal Inspection Neurologic/Psychiatric: Alert, Oriented x3 Skin: Normal Color, Warm/Dry Lymphatic: No Adenopathy Assessment/Plan Assessment/Plan S/P fall secondary to probable seizure -Pt has not been taking her home meds -Restart home meds -seizure precautions Epilepsy -Home meds have not been verified yet and pt is not reliable enough to tell me what she is taking. Will start Lamotrigine and Gabapentin for seizures now and have med tech confirm home meds. Bipolar hx -Pt has been evaluated by psych here in the past and at that time they were recommending placement Will transfer to 4th floor with seizure precautions and tele sitter. I am going to sign off please call with any questions or concerns. Will consult for possible home assistance. LESLEE MACK DO Feb 27, 2018 05:37
[2018-02-27] MEDS ORDERED: MAGNESIUM 1 GM/100 ML IVPB 100 ML IV SCH (06:00)
[2018-02-27] MEDS ORDERED: POTASSIUM CL 10MEQ/50ML IVPB 50 ML IV SCH (06:00)
[2018-02-27] MEDS ORDERED: KCL 20 MEQ TAB (K-DUR) PO SCH (06:00)
[2018-02-27] MEDS ORDERED: LORazepam INJ 2 MG/ML (ATIVAN) VIAL IV PRN (06:15)
--- NOTE | 2018-02-27 07:15 | Diagnostic Imaging Report ---
PROCEDURE: CT head, face, and cervical spine without contrast. TECHNIQUE: Multiple contiguous axial images were obtained through the head, neck, and facial bones without the use of intravenous contrast. Sagittal and coronal reformations through the cervical spine and facial bones were also performed. INDICATION: Seizure-like activity with a fall. This is a new insult since the comparison studies were performed one day prior. CT head: There is no intracranial hemorrhage, hydrocephalus, edema, mass or mass effect. The basilar cisterns are patent. There is no sulcal effacement. The calvarium unremarkable. There is no hemo-sinus. CT face: Deformity of the right greater than left nasal bone has developed since the study of one day prior and presumed to reflect new mildly displaced fractures. There does appear to be some adjacent overlying soft tissue swelling. The nasal septum is intact. The anterior and posterior ortega of the frontal sinus intact. No orbital fracture or retrobulbar hematoma. The maxillary ortega intact. The pterygoid plates intact. The mandible intact. No hemo-sinus. There is no mastoid effusion and external auditory canals and middle ear cavities appeared unremarkable. There is no bony dislocation at the level of the temporomandibular joints. CT cervical spine: Degenerative changes to the mid to lower cervical spine stable from prior, no fracture or traumatic malalignment. IMPRESSION: CT head: No hemorrhage or acute intracerebral pathology. CT facial bones: Bilateral right greater than left nasal bone fractures have developed. No other facial fracture or hemo-sinus. CT cervical spine: Advanced degenerative changes without fracture or traumatic malalignment. No change from prior. Dictated by: Dictated on workstation # [id number]
[2018-02-27] MEDS ORDERED: GABAPENTIN 100 MG (NEURONTIN) CAP PO ONE (09:00)
[2018-02-27] MEDS: RT-ALBUTEROL/IPRATROPIUM 3 ML (DUONEB) VIAL INH SCH ×3 (09:38→19:33)
[2018-02-27] MEDS: RT-ADVAIR HFA 115/21 MCG PER PUFF IH SCH ×2 (09:38→19:34)
[2018-02-27] MEDS: GABAPENTIN 600 MG (NEURONTIN) TAB PO SCH ×2 (10:33→20:02)
[2018-02-27] MEDS ORDERED: FLU QUADRIvalent (5+ YOA) 2018-2019 (AFLURIA) 0.5 ML IM ONE (11:15)
--- NOTE | 2018-02-27 11:19 | Short Stay Summary-Hospitalist ---
History of Present Illness HPI/Chief Complaint CC: Seizure with fall HPI: This is a 52-year-old white female who previously was established at the [facility] but now receives her care at [facility] who has a past medical history of schizophrenia and severe seizure disorder that had experienced a seizure brought into the ER and was given her meds and sent home then 2 hours later experiencing another seizure and this time falling on her face resulted in significant facial injury but soft tissue only but the concern was she was recently placed on anticoagulation for CVA Px for atrial fibrillation but experiences many seizures per month requiring ER evaluation multiple times per month and I have deemed her not a candidate for anticoagulation due to high risk for life threatening bleeding. Source: patient, RN/MD Exam Limitations: clinical condition Date Seen 02/27/18 Time Seen by a Provider: 10:30 Attending Physician Jeri Smith DO [facility] Referring Physician Date of Admission Feb 27, 2018 at 01:40 Home Medications & Allergies Home Medications Reviewed patient Home Medication Reconciliation performed by pharmacy medication reconciliations color technician and/or nursing. Patients Allergies have been reviewed. Allergies Allergies Coded Allergies No Known Drug Allergies (Unverified06/09/14) Past Rvtyzge-Tclknr-Wsfyyq Hx Past Med/Social Hx: Reviewed Nursing Past Med/Soc Hx, Reviewed and Corrections made Patient Social History Marrital Status: single Employed/Student: unemployed Alcohol Use: Denies Use Recreational Drug Use: Yes Drug of Choice: MARIJUANA, opioids Smoking Status: Current Everyday Smoker Type Used: Cigarettes Physical Abuse Screen: No Sexual Abuse: No Recent Foreign Travel: No Contact w/other who traveled: No Recent Hopitalizations: No Recent Infectious Disease Expo: No Immunizations Up To Date Tetanus Booster (TDap): Less than 5yrs Seasonal Allergies Seasonal Allergies: No Past Medical History Surgeries: Section, Orthopedic, Tubal Ligation Currently Using CPAP: No Currently Using BIPAP: No Cardiac: High Cholesterol Neurological: Concussion, Seizure Disorder, Traumatic Brain Injury Reproductive: No Female Reproductive Disorders: Denies Hysterectomy Musculoskeletal: Chronic Back Pain Psychosocial: Anxiety, PTSD, Bipolar, Personality Disorder, Schizophrenia, Depression History of Blood Disorders: No Family History Alcoholism 19 FATHER Arthritis 19 MOTHER FH: bipolar disorder No Pertinent Family Hx, Psychiatric Problems Review of Systems Constitutional: see HPI, weakness EENTM: epistaxis (after fall) Respiratory: no symptoms reported Cardiovascular: no symptoms reported Gastrointestinal: no symptoms reported Genitourinary: no symptoms reported Musculoskeletal: no symptoms reported Skin: no symptoms reported Psychiatric/Neurological: Depressed All Other Systems Reviewed Negative Unless Noted: Yes Physical Exam Physical Exam Vital Signs Vital Signs - First Documented 02/27/18 02/27/18 00:02 03:28 Temp 97.6 Pulse 85 Resp 19 B/P (MAP) 149/83 (105) Pulse Ox 92 O2 Delivery Room Air FiO2 21 Capillary Refill : Less Than 3 SecondsLess Than 3 Seconds Height, Weight, BMI Height: 5'7.00" Weight: 174lbs. 0.0oz. 78.325474kj; 27.3 BMI Method:Stated General Appearance: No Apparent Distress, WD/WN, Chronically ill Eyes: Bilateral Eye Normal Inspection, Bilateral Eye PERRL HEENT: PERRL/EOMI, Other (eechymosis left face) Neck: Full Range of Motion, Normal Inspection, Non Tender, Supple, Carotid Bruit Respiratory: Chest Non Tender, Lungs Clear, Normal Breath Sounds, No Accessory Muscle Use, No Respiratory Distress Cardiovascular: Regular Rate, Rhythm, No Edema, No Gallop, No JVD, No Murmur, Normal Peripheral Pulses Gastrointestinal: Normal Bowel Sounds, No Organomegaly, No Pulsatile Mass, Non Tender, Soft Back: Normal Inspection, No CVA Tenderness, No Vertebral Tenderness Extremity: Normal Capillary Refill, Normal Inspection, Normal Range of Motion, Non Tender, No Calf Tenderness, No Pedal Edema Neurologic/Psychiatric: Alert, Oriented x3, No Motor/Sensory Deficits, Normal Mood/Affect Skin: Normal Color, Warm/Dry Lymphatic: No Adenopathy Results Results/Procedures Labs Patient resulted labs reviewed. Short Stay Diagnosis Discharge Diagnosis-Short Stay Admission Diagnosis Assessment: Seizure recurrent with fall with facial injury Anticoagulation for CVA Px from AF no longer an anticoagulation candidate Schizophrenia Final Discharge Diagnosis Assessment: Seizure recurrent with fall with facial injury Anticoagulation for CVA Px from AF no longer an anticoagulation candidate Schizophrenia Conclusion Plan Plan: Add Keppra Home meds DC as long as JASEN deems safe Diagnosis/Problems Diagnosis/Problems (1) Seizure Status: Acute (2) At risk for bleeding associated with anticoagulants Status: Acute (3) Epilepsy Status: Chronic Qualifiers: Qualified Codes: G40.909 - Epilepsy, unspecified, not intractable, without status epilepticus (4) Fall Status: Acute Qualifiers: Qualified Codes: W19.XXXA - Unspecified fall, initial encounter (5) Abrasion head Status: Acute (6) Nasal bones, closed fracture Status: Acute Qualifiers: Qualified Codes: S02.2XXA - Fracture of nasal bones, initial encounter for closed fracture (7) Schizo affective schizophrenia Status: Chronic (8) Altered mental state Status: Resolved Qualifiers: Qualified Codes: R41.0 - Disorientation, unspecified (9) Atrial fibrillation Status: Chronic Qualifiers: Qualified Codes: I48.0 - Paroxysmal atrial fibrillation Clinical Quality Measures DVT/VTE Risk/Contraindication: Risk Factor Score Per Nursin RFS Level Per Nursing on Admit: 4+=Very High JERI SMITH DO Feb 27, 2018 11:19
[2018-02-27] MEDS: LEVETIRACETAM 500 MG (KEPPRA) TAB PO SCH ×2 (12:40→20:02)
[2018-02-27] MEDS ORDERED: RISP1TAB3 PO (14:02)
[2018-02-27] MEDS: LORazepam 1 MG (ATIVAN) TAB PO PRN (17:46)
[2018-02-27] MEDS: AMITRIPTYLINE 150 MG (ELAVIL) TABLET PO SCH (20:02)
[2018-02-27] MEDS: risperiDONE 1 MG (RisperDAL) TAB PO SCH (20:03)
[2018-02-27] MEDS ORDERED: AMITRIPTYLINE HCL 150 MG PO SCH (21:00)
[2018-02-27] MEDS ORDERED: RISPERIDONE 1 MG PO SCH (21:00)
[2018-02-28 00:14] VITALS: BP 93/55
[2018-02-28] MEDS: RT-ALBUTEROL/IPRATROPIUM 3 ML (DUONEB) VIAL INH SCH ×4 (02:23→18:45)
[2018-02-28 05:24] LABS: BASOPHILS % (AUTO) 1 % (0-10); EOSINOPHILS # (AUTO) 0.2 10^3/uL (0.0-0.3); EOSINOPHILS % (AUTO) 2 % (0-10); HEMATOCRIT 38 % (35-52); HEMOGLOBIN 11.9 G/DL (11.5-16.0); LYMPHOCYTES # (AUTO) 2.2 X 10^3 (1.0-4.0); LYMPHOCYTES % (AUTO) 27 % (12-44); MEAN CORPUSCULAR HEMOGLOBIN 31 PG (25-34); MEAN CORPUSCULAR HGB CONC 32 G/DL (32-36); MEAN CORPUSCULAR VOLUME 96 FL (80-99); MEAN PLATELET VOLUME 9.1 FL (7.4-10.4); MONOCYTES # (AUTO) 0.8 X 10^3 (0.0-1.0); MONOCYTES % (AUTO) 10 % (0-12); NEUTROPHILS # (AUTO) 4.9 X 10^3 (1.8-7.8); NEUTROPHILS % (AUTO) 60 % (42-75); PLATELET COUNT 377 10^3/uL (130-400); RED CELL DISTRIBUTION WIDTH 14.6 % (10.0-14.5); WHITE BLOOD COUNT 8.2 10^3/uL (4.3-11.0)
[2018-02-28 06:19] LABS: BUN/CREATININE RATIO 10; CALCIUM 8.8 MG/DL (8.5-10.1); CARBON DIOXIDE 25 MMOL/L (21-32); CHLORIDE 105 MMOL/L (98-107); CREATININE SERUM 0.78 MG/DL (0.60-1.30); GFR ESTIMATED > 60; GLUCOSE 103 MG/DL (70-105); MAGNESIUM 1.9 MG/DL (1.8-2.4); PHOSPHORUS 3.5 MG/DL (2.3-4.7); POTASSIUM 3.5 MMOL/L (3.6-5.0); SODIUM 140 MMOL/L (135-145)
[2018-02-28 08:00] VITALS: BP 95/53
--- NOTE | 2018-02-28 08:10 | Discharge Inst-Simple/Standard ---
Discharge Inst-Standard Discharge Medications New, Converted or Re-Newed RX: Other Patient Instructions/Follow Up Plan of Care/Instructions/FU: She will follow up with her primary care provider within 1 week Activity as Tolerated: Yes Discharge Diet: Regular Diet Return to The Hospital For: Seizure, extreme lightheadedness LIZ CROWLEY MD Feb 28, 2018 08:10
--- NOTE | 2018-02-28 08:13 | Discharge Summary ---
Diagnosis/Chief Complaint Date of Admission Feb 27, 2018 at 02:15 Date of Discharge February 28, 2018 Admission Diagnosis Admission Diagnosis 1. Seizure disorder 2. Fall due to the number 1 3. Nasal fracture Discharge Diagnosis 1. Seizure disorder 2. Fall due to the number 1 3. Nasal fracture Chief Complaint/HPI Chief Complaint/HPI 52-year-old female admitted after having seizure and fall. Apparently the injury occurred when she was at home. She was brought to the emergency department by EMS. She apparently was postictal in the emergency department. She denied any pain in the emergency department bed did complain of her left side of face hurting. Ultimately she received a CT of the head which revealed nasal fracture. Discharge Summary-Simple/Stand Consultations Discharge Physical Examination Allergies: Coded Allergies: No Known Drug Allergies (Unverified , 06/09/14) Vitals & I&Os Vital Sign - Last 12Hours Date Time Temp Pulse Resp B/P (MAP) Pulse Ox O2 Delivery O2 Flow Rate FiO2 02/28/18 02:25 95 Room Air 02/28/18 00:14 96.8 73 20 93/55 (68) 02/27/18 03:28 21 Intake and Output 02/27/18 23:59 Intake Total 1250 ml Balance 1250 ml General Appearance: No Acute Distress HEENT: Other (Bruising noted around the left eye) Respiratory: Clear to Auscultation Cardiovascular: Regular Rate Abdominal: Soft Skin: No Rashes Hospital Course Upon admission February 27, 2018 she was monitored for any further seizure disorder. She did not have any seizures during the remainder of hospital stay. She was started back on her home medications during the afternoon of February 27, 2018. By the morning of February 28 patient was in pretty much normal state of health. 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 She did not report any headache or any visual disturbances. She will not be on her anticoagulation medication. She will follow up within the week with her primary care provider. Discharge Instructions to patient/family Please see electronic discharge instructions given to patient. Discharge Medications Reviewed and agree with Discharge Medication list on patient's Discharge Instruction sheet Clinical Quality Measures DVT/VTE Risk/Contraindication: Risk Factor Score Per Nursin RFS Level Per Nursing on Admit: 4+=Very High LIZ CROWLEY MD Feb 28, 2018 08:12
[2018-02-28] MEDS: LEVETIRACETAM 500 MG (KEPPRA) TAB PO SCH ×2 (08:22→20:45)
[2018-02-28] MEDS: risperiDONE 1 MG (RisperDAL) TAB PO SCH ×2 (08:22→20:44)
[2018-02-28] MEDS: GABAPENTIN 600 MG (NEURONTIN) TAB PO SCH ×2 (08:23→20:44)
[2018-02-28] MEDS: RT-ADVAIR HFA 115/21 MCG PER PUFF IH SCH ×2 (10:37→18:46)
--- NOTE | 2018-02-28 10:51 | Physical Therapy Evaluation ---
PT Evaluation-General Medical Diagnosis Admission Date Feb 27, 2018 at 02:15 Medical Diagnosis: Epilepsy/fall Onset Date: Feb 27, 2018 Therapy Diagnosis Therapy Diagnosis: debility/weakness Height/Weight Height (Feet): 5 Height (Inches): 7.00 Weight (Pounds): 174 Weight (Ounces): 0.0 Precautions Precautions/Isolations: Seizure, Fall Prevention, Standard Precautions Weight Bear Status Right Lower Extremity: Right Full Weight Bearing Left Lower Extremity: Left Full Weight Bearing Referral Physician: Adam Reason for Referral: Evaluation/Treatment Medical History Pertinent Medical History: Smoking Additional Medical History drug use, TBI, seizure, PTSD, schizophrenia, bipolar Current History found face down by neighbor after an apparent seizure Reviewed History: Yes Social History Home: Apartment Current Living Status: Alone Prior/Core FIM Prior Level of Function Functional [place] Measure 0=Not Assessed/NA 4=Minimal Assistance 1=Total Assistance 5=Supervision or Setup 2=Maximal Assistance 6=Modified [place] 3=Moderate Assistance 7=Complete IndependenceIRFPAI Quality Coding Scale 6 Independent with activity with or without an assistive device 5 Patient requires set up or clean up by helper. Patient completes activity by themselves 4 Supervision or touching assist (CGA). [place] provide cues , steadying assist 3 The helper provides less than half the effort to complete the activity 2 The helper provides more than half the effort to complete the activity 1 Dependent. The helper does all the effort to complete an activity 7 Patient refused to complete or attempt activity 9 The patient did not perform the activity before the current illness or injury 88 Not attempted due to Medical conditions or safety concerns Bed Mobility: 7 Transfers (B,C,W/C) (FIM): 7 Gait: 7 PT Evaluation-Current Subjective Patient is in bed and appears very lethargic. Mumbles when spoken to. Pain Numeric Pain Scale: 5-Moderate Pain Location: Lower Location Body Site: Pelvic Objective Patient Orientation: Confused, Mumbles, Listless Problem Solving: Poor ROM/Strength ROM Lower Extremities bilateral LE WFL Strength Lower Extremities left LE 3-/5 grossly/right LE 3+/5 grossly Integumentary/Posture Integumentary refer to nursing notes ( noted facial abrasions) Bowel Incontinence: No Bladder Incontinence: No Posture WFL Neuromuscular (Tone, Coordination, Reflexes) severely diminished coordination/proprioception with noted LOB to left several times during evaluation with inability to self correct Sensory Vision: Unable to Assess Hearing: Functional Sensation Right Lower Extremit: Impaired Sensation Left Lower Extremity: Impaired Transfers Functional [place] Measure 0=Not Assessed/NA 4=Minimal Assistance 1=Total Assistance 5=Supervision or Setup 2=Maximal Assistance 6=Modified [place] 3=Moderate Assistance 7=Complete [place] Transfers (B, C, W/C) (FIM): 2 Scootin Rollin Supine to/from Sit: 5 Sit to/from Stand: 2 Patient is unable to maintain sitting EOB without assistance secondary to multiple episodes of LOB to left and back with inability to self correct Gait Mode of Locomotion: Walk Anticipated Mode of Locomotion: Walk Gait (FIM): 1 Distance (FIM): 1=up to 49 ft Distance: 5 steps Gait Level of Assist: 1 Gait Persons Needed: 2 Gait Assistive Device: FWW Comments/Gait Description severely diminished motor planning and unable to perform gait sequence with use of FWW to safely take steps requiring dependent assist of 2 to return to sitting EOB. Balance Sitting Static: Poor Sitting Dynamic: Poor Standing Static: Poor Standing Dynamic: Poor Assessment/Needs 52 y.o. female, is currently unable to safely perform motor skills to return to home. Patient is unable to maintain balance in sit or stand and appears to be very listless/lethargic. Patient also c/o vaginal/pelvic pain after returning to supine in bed with 4 rails up and bed alarm activated. RN present and will consult with physician. From a PT standpoint, patient is not safe to dismiss at this time. Rehab Potential: Fair PT [facility] Goals Goat Driver Goals PT [facility] Goals Time Frame: Mar 07, 2018 Transfers (B,C,W/C) (FIM): 6 Gait (FIM): 6 Gait distance (FIM): 3=150 ft Gait Level of Assist: 6 Gait Assistive Device: None, FWW PT Plan Problem List Problem List: Activity Tolerance, Functional Strength, Safety, Balance, Gait, Transfer, Bed Mobility Treatment/Plan Treatment Plan: Continue Plan of Care Treatment Plan: Bed Mobility, Education, Functional Activity [place], Functional Strength, Gait, Safety, Therapeutic Exercise, Transfers Treatment Duration: Mar 07, 2018 Frequency: 6 times per week Estimated Hrs Per Day: .5 hour per day Patient and/or Family Agrees t: Yes Time/GCodes Time In: 1025 Time Out: 1043 Total Billed Treatment Time: 18 Total Billed Treatment 1 visit EVModC 18 min G Codes Necessary: VIRGINIA Medrano PT Feb 28, 2018 10:51
--- NOTE | 2018-02-28 11:14 | Diagnostic Imaging Report ---
PROCEDURE: CT head without contrast. TECHNIQUE: Multiple contiguous axial images were obtained through the brain without the use of intravenous contrast. INDICATION: Altered mental status. COMPARISON: Multiple priors, most recent on 02/27/2018. FINDINGS: BRAIN: No parenchymal hemorrhage, midline shift or mass effect. Levine-white matter differentiation is intact. No acute infarct. No white matter lesions. Ventricles, sulci and basilar cisterns are normal. EXTRA-AXIAL SPACES: No subdural or epidural collections. ORBITS AND PARANASAL SINUSES: Visualized orbits and globes are intact. Visualized paranasal sinuses and mastoid air cells are clear. CALVARIUM AND SOFT TISSUES: The calvarium is intact. No fractures or suspicious bony lesions. Resolving superior left parietal scalp hematoma. IMPRESSION: No acute intracranial pathology. No significant change from prior. Dictated by: Dictated on workstation # [id number]
[2018-02-28 15:33] VITALS: BP 106/65
[2018-02-28] MEDS: AMITRIPTYLINE 150 MG (ELAVIL) TABLET PO SCH (20:44)
[2018-02-28 20:45] VITALS: BP 122/70
[2018-02-28 21:50] LABS: AMPHETAMINE SCREEN, URINE NEGATIVE (NEGATIVE); BARBITURATE SCREEN URINE NEGATIVE (NEGATIVE); BENZODIAZEPINES SCREEN URINE POSITIVE (NEGATIVE); CANNABINOID SCREEN, URINE NEGATIVE (NEGATIVE); COCAINE SCREEN URINE NEGATIVE (NEGATIVE); METHADONE STAT NEGATIVE (NEGATIVE); METHAMPHETAMINE SCREEN URINE S NEGATIVE (NEGATIVE); OPIATE SCREEN URINE NEGATIVE (NEGATIVE); OXYCODONE STAT NEGATIVE (NEGATIVE); PROPOXYPHENE STAT NEGATIVE (NEGATIVE); TRICYCLIC ANTIDEPRESSANTS SCRE POSITIVE (NEGATIVE)
[2018-03-01] VITALS: BP 108/61
[2018-03-01] MEDS: RT-ALBUTEROL/IPRATROPIUM 3 ML (DUONEB) VIAL INH SCH ×4 (02:18→19:59)
[2018-03-01] MEDS: LORazepam 1 MG (ATIVAN) TAB PO PRN ×3 (04:08→19:53)
[2018-03-01 04:10] VITALS: BP 130/72
--- NOTE | 2018-03-01 07:58 | Progress Note (SOAP) ---
Subjective Subjective/Events-last exam Patient is carrying on conversation with herself this morning. She does appear to be at times coherent and corrected with conversation but then she becomes very tangential in her thought process. She does not voice any pain. She is still unable to stand on her own very well. Review of Systems Date Seen by Provider: Mar 01, 2018 Time Seen by Provider: 07:00 Objective Exam Last Set of Vital Signs Vital Signs Date Time Temp Pulse Resp B/P (MAP) Pulse Ox O2 Delivery O2 Flow Rate FiO2 03/01/18 04:10 97.7 78 20 130/72 (91) 96 Room Air 02/27/18 03:28 21 Capillary Refill : Less Than 3 SecondsLess Than 3 Seconds I&O Intake and Output 03/01/18 00:00 Intake Total 1834 ml Output Total 3 ml Balance 1831 ml Intake Oral 1834 ml Output Urine Total 3 ml # Voids 5 General: Alert, No Acute Distress Lungs: Clear to Auscultation Heart: Regular Rate Abdomen: Soft Psych/Mental Status: Other (As mentioned very tangential in thought process) Results/Procedures Lab Laboratory Tests 02/28/18 21:15: Urine Opiates Screen NEGATIVE, Urine Oxycodone Screen NEGATIVE, Urine Methadone Screen NEGATIVE, Urine Propoxyphene Screen NEGATIVE, Urine Barbiturates Screen NEGATIVE, Ur Tricyclic Antidepressants Screen POSITIVEH, Urine Phencyclidine Screen NEGATIVE, Urine Amphetamines Screen NEGATIVE, Urine Methamphetamines Screen NEGATIVE, Urine Benzodiazepines Screen POSITIVEH, Urine Cocaine Screen NEGATIVE, Urine Cannabinoids Screen NEGATIVE Assessment/Plan Assessment/Plan Admission Dx 1. Seizure disorder 2. Fall due to the number 1 3. Nasal fracture Assessment & Plan 1. Seizure disorder -Controlled -Her discharge from yesterday was canceled when she began having more mental issues. CT of her head was again reported negative. She has been placed back on all of her medications for bipolar and schizophrenia. 2. Fall due to the number 1 3. Unable to stand -Physical therapy 4. Mentally unstable at this moment -Patient most likely will need placement on Friday. We will await further social media marketing manager input. 5. Nasal fracture Clinical Quality Measures DVT/VTE Risk/Contraindication: Risk Factor Score Per Nursin RFS Level Per Nursing on Admit: 4+=Very High LIZ CROWLEY MD Mar 01, 2018 07:58
[2018-03-01 08:32] VITALS: BP 124/72
[2018-03-01] MEDS: GABAPENTIN 600 MG (NEURONTIN) TAB PO SCH ×2 (09:15→19:53)
[2018-03-01] MEDS: LEVETIRACETAM 500 MG (KEPPRA) TAB PO SCH ×2 (09:15→19:58)
[2018-03-01] MEDS: risperiDONE 1 MG (RisperDAL) TAB PO SCH ×2 (09:15→19:53)
[2018-03-01] MEDS: RT-ADVAIR HFA 115/21 MCG PER PUFF IH SCH ×2 (09:18→19:59)
[2018-03-01 09:46] LABS: BASOPHILS % (AUTO) 0 % (0-10); EOSINOPHILS # (AUTO) 0.2 10^3/uL (0.0-0.3); EOSINOPHILS % (AUTO) 2 % (0-10); HEMATOCRIT 39 % (35-52); HEMOGLOBIN 12.3 G/DL (11.5-16.0); LYMPHOCYTES # (AUTO) 1.6 X 10^3 (1.0-4.0); LYMPHOCYTES % (AUTO) 16 % (12-44); MEAN CORPUSCULAR HEMOGLOBIN 31 PG (25-34); MEAN CORPUSCULAR HGB CONC 32 G/DL (32-36); MEAN CORPUSCULAR VOLUME 98 FL (80-99); MEAN PLATELET VOLUME 9.2 FL (7.4-10.4); MONOCYTES # (AUTO) 0.8 X 10^3 (0.0-1.0); MONOCYTES % (AUTO) 8 % (0-12); NEUTROPHILS # (AUTO) 7.4 X 10^3 (1.8-7.8); NEUTROPHILS % (AUTO) 74 % (42-75); PLATELET COUNT 380 10^3/uL (130-400); RED BLOOD COUNT 3.97 10^6/uL (4.35-5.85); RED CELL DISTRIBUTION WIDTH 14.6 % (10.0-14.5)
[2018-03-01 09:58] LABS: BUN/CREATININE RATIO 12; CALCIUM 9.5 MG/DL (8.5-10.1); CARBON DIOXIDE 24 MMOL/L (21-32); CHLORIDE 102 MMOL/L (98-107); CREATININE SERUM 0.77 MG/DL (0.60-1.30); GFR ESTIMATED > 60; GLUCOSE 110 MG/DL (70-105); MAGNESIUM 2.1 MG/DL (1.8-2.4); PHOSPHORUS 3.2 MG/DL (2.3-4.7); POTASSIUM 3.7 MMOL/L (3.6-5.0); SODIUM 138 MMOL/L (135-145)
[2018-03-01 16:54] VITALS: BP 127/70
[2018-03-01] MEDS: AMITRIPTYLINE 150 MG (ELAVIL) TABLET PO SCH (19:53)
[2018-03-02] VITALS: BP 108/55
[2018-03-02] MEDS: RT-ALBUTEROL/IPRATROPIUM 3 ML (DUONEB) VIAL INH SCH ×4 (02:34→19:34)
[2018-03-02 06:59] LABS: BASOPHILS % (AUTO) 0 % (0-10); EOSINOPHILS # (AUTO) 0.2 10^3/uL (0.0-0.3); EOSINOPHILS % (AUTO) 2 % (0-10); HEMATOCRIT 39 % (35-52); HEMOGLOBIN 12.1 G/DL (11.5-16.0); LYMPHOCYTES # (AUTO) 1.6 X 10^3 (1.0-4.0); LYMPHOCYTES % (AUTO) 15 % (12-44); MEAN CORPUSCULAR HEMOGLOBIN 31 PG (25-34); MEAN CORPUSCULAR HGB CONC 31 G/DL (32-36); MEAN CORPUSCULAR VOLUME 98 FL (80-99); MEAN PLATELET VOLUME 9.4 FL (7.4-10.4); MONOCYTES # (AUTO) 0.9 X 10^3 (0.0-1.0); MONOCYTES % (AUTO) 8 % (0-12); NEUTROPHILS % (AUTO) 75 % (42-75); PLATELET COUNT 367 10^3/uL (130-400); RED BLOOD COUNT 3.97 10^6/uL (4.35-5.85); RED CELL DISTRIBUTION WIDTH 14.9 % (10.0-14.5); WHITE BLOOD COUNT 10.7 10^3/uL (4.3-11.0)
[2018-03-02 07:22] LABS: BUN/CREATININE RATIO 16; CALCIUM 9.1 MG/DL (8.5-10.1); CARBON DIOXIDE 26 MMOL/L (21-32); CHLORIDE 104 MMOL/L (98-107); CREATININE SERUM 0.76 MG/DL (0.60-1.30); GFR ESTIMATED > 60; GLUCOSE 93 MG/DL (70-105); MAGNESIUM 1.8 MG/DL (1.8-2.4); PHOSPHORUS 3.3 MG/DL (2.3-4.7); SODIUM 141 MMOL/L (135-145)
[2018-03-02 07:46] VITALS: BP 142/68
[2018-03-02] MEDS: risperiDONE 1 MG (RisperDAL) TAB PO SCH ×2 (08:34→20:23)
[2018-03-02] MEDS: GABAPENTIN 600 MG (NEURONTIN) TAB PO SCH ×2 (08:34→20:23)
[2018-03-02] MEDS: LEVETIRACETAM 500 MG (KEPPRA) TAB PO SCH (08:34)
[2018-03-02] MEDS: LORazepam 1 MG (ATIVAN) TAB PO PRN ×2 (08:34→17:30)
--- NOTE | 2018-03-02 09:39 | Progress Note-Hospitalist ---
LYNNTERESA 03/02/18 0939: Subjective HPI/CC On Admission Date Seen by Provider: Mar 02, 2018 Time Seen by Provider: 09:00 CC: Seizure with fall HPI: This is a 52-year-old white female who previously was established at the [facility] but now receives her care at [facility] who has a past medical history of schizophrenia and severe seizure disorder that had experienced a seizure brought into the ER and was given her meds and sent home then 2 hours later experiencing another seizure and this time falling on her face resulted in significant facial injury but soft tissue only but the concern was she was recently placed on anticoagulation for CVA Px for atrial fibrillation but experiences many seizures per month requiring ER evaluation multiple times per month and I have deemed her not a candidate for anticoagulation due to high risk for life threatening bleeding. Subjective/Events-last exam Patient is confused and appears slightly oversedated which could be from my addition of Keppra so that will be held and seizure recurrences will be closely monitored Checked meds and labs Pt more alert now but more confused and labs were reviewed and vitals remain stable Dr Medina tried to send the patient home this weekend but she could not walk. Review of Systems Neurological: Confusion Objective Exam Vital Signs Vital Signs Date Time Temp Pulse Resp B/P (MAP) Pulse Ox O2 Delivery O2 Flow Rate FiO2 03/02/18 10:09 92 Room Air 03/02/18 07:46 98.2 91 16 142/68 (92) 02/27/18 03:28 21 Capillary Refill : Less Than 3 SecondsLess Than 3 Seconds General Appearance: No Apparent Distress, WD/WN, Chronically ill Respiratory: Chest Non Tender, Lungs Clear, Normal Breath Sounds, No Accessory Muscle Use, No Respiratory Distress Cardiovascular: Regular Rate, Rhythm, No Edema, No Gallop, No JVD, No Murmur, Normal Peripheral Pulses Gastrointestinal: Normal Bowel Sounds, No Organomegaly, No Pulsatile Mass, Non Tender, Soft Neurologic/Psychiatric: Alert, No Motor/Sensory Deficits, survey engineer II-XII Norm as Tested, Disoriented Skin: Normal Color, Warm/Dry Results/Procedures Lab Laboratory Tests 03/02/18 06:25 Patient resulted labs reviewed. Assessment/Plan Assessment and Plan Assess & Plan/Chief Complaint Plan: DC Keppra due to oversedation Home meds Dispo soon Check labs in am Difficult social situation Diagnosis/Problems Diagnosis/Problems (1) Sedated due to medication Status: Acute (2) Gait instability Status: Acute (3) Seizure Status: Acute (4) At risk for bleeding associated with anticoagulants Status: Acute (5) Epilepsy Status: Chronic Qualifiers: Epilepsy type: unspecified Intractability: not intractable Status epilepticus: without status epilepticus Qualified Codes: G40.909 - Epilepsy, unspecified, not intractable, without status epilepticus (6) Fall Status: Acute Qualifiers: Encounter type: initial encounter Qualified Codes: W19.XXXA - Unspecified fall, initial encounter (7) Abrasion head Status: Acute (8) Nasal bones, closed fracture Status: Acute Qualifiers: Encounter type: initial encounter Qualified Codes: S02.2XXA - Fracture of nasal bones, initial encounter for closed fracture (9) Schizo affective schizophrenia Status: Chronic (10) Altered mental state Status: Acute Qualifiers: Altered mental status type: delirium Qualified Codes: R41.0 - Disorientation, unspecified (11) Atrial fibrillation Status: Chronic Qualifiers: Atrial fibrillation type: paroxysmal Qualified Codes: I48.0 - Paroxysmal atrial fibrillation Clinical Quality Measures DVT/VTE Risk/Contraindication: Risk Factor Score Per Nursin RFS Level Per Nursing on Admit: 4+=Very High ALINA MEYERS MED STUDENT 03/02/18 1050: Subjective HPI/CC On Admission CC: Seizure, Fall, Nasal FX HPI: The patient is very confused and states that she fell and hit her head "while trying to ride a horse". She claims that she is in no pain currently. She states that she is sleeping well. She is complaining of constipation and difficulty with bowel movements. Objective Exam General Appearance: No Apparent Distress, WD/WN HEENT: PERRL/EOMI, TMs Normal, Normal ENT Inspection, Pharynx Normal Neck: Full Range of Motion, Normal Inspection, Non Tender, Supple Respiratory: Chest Non Tender, Lungs Clear, Normal Breath Sounds, No Accessory Muscle Use, No Respiratory Distress Cardiovascular: Regular Rate, Rhythm, No Edema, No Gallop, No JVD, No Murmur, Normal Peripheral Pulses Gastrointestinal: Normal Bowel Sounds, No Organomegaly, No Pulsatile Mass, Non Tender, Soft Results/Procedures Meds Amytriptyline HCI 150mg PO Apixaban 2.5 mg PO BID Atorvastatin Calcium 20 mg PO Cephalexin 500mg PO BID Clonazepam 1 mg PO Daily PRN for anxiety Cyclobenzaprine HCI 5mg PO TID PRN for paim Docusate Sodium 100 mg PO BID PRN for constipation Fluticasone/Salmeterol 2 puff IH RTBID Gabapentin 1,200 mg PO TID Lamotrigine 200 mg PO BID Sulfamethoxazole/Trimethoprim PO BID Assessment/Plan Assessment and Plan Assess & Plan/Chief Complaint Assessment: 1) Fall secondary to seizure 2) Epilepsy 3) Altered mental status TERESA LYNN DO Mar 02, 2018 09:39 ALINA MEYERS MED STUDENT Mar 02, 2018 10:50
[2018-03-02] MEDS: RT-ADVAIR HFA 115/21 MCG PER PUFF IH SCH ×2 (10:17→19:34)
--- NOTE | 2018-03-02 11:20 | Physical Therapy Daily Note ---
PT Daily Note-Current Subjective Patient is in bed with all four rails up, padded, due to confusion. Patient appears very lethargic. Pain Numeric Pain Scale: 0-No Pain Location: No Pain Reported Mental Status Patient Orientation: Confused, Mumbles (unable to understand anything patient states), Listless Transfers Functional [place] Measure 0=Not Assessed/NA 4=Minimal Assistance 1=Total Assistance 5=Supervision or Setup 2=Maximal Assistance 6=Modified [place] 3=Moderate Assistance 7=Complete IndependenceIRFPAI Quality Coding Scale 6 Independent with activity with or without an assistive device 5 Patient requires set up or clean up by helper. Patient completes activity by themselves 4 Supervision or touching assist (CGA). [place] provide cues , steadying assist 3 The helper provides less than half the effort to complete the activity 2 The helper provides more than half the effort to complete the activity 1 Dependent. The helper does all the effort to complete an activity 7 Patient refused to complete or attempt activity 9 The patient did not perform the activity before the current illness or injury 88 Not attempted due to Medical conditions or safety concerns Transfers (B, C, W/C) (FIM): 1 Scootin Rollin Supine to/from Sit: 1 Sit to/from Stand: 1 Patient is unable to follow simple direction on this date. She is severely lethargic requiring dependent assist with all mobility. Patient unable to maintain sitting EOB without dependent assist. Patient displays ataxic movement and severely diminished motor planning. Attempted to perform sit to stand with dependent assist of 2, however, patient demonstrates extreme retropulsion and is unable to safely perform. PT returned patient to bed with all 4 rails up and bed alarm activated. Weight Bearing Right Lower Extremity: Right Full Weight Bearing Left Lower Extremity: Left Full Weight Bearing Assessment Patient appears to be declining with motor skills and mental status. PT consulted with SW and RN on POC due to patient decline. Both agree to discuss with physician on furthering testing. PT did voice concern on patient swallowing ability due to severe lethargy and diminished mentation. PT Insole Presser Goals [facility] Goals PT [facility] Goals Time Frame: Mar 07, 2018 Transfers (B,C,W/C) (FIM): 6 Gait (FIM): 6 Gait distance (FIM): 3=150 ft Gait Level of Assist: 6 Gait Assistive Device: None, FWW PT Plan Treatment/Plan Treatment Plan: Continue Plan of Care Treatment Plan: Bed Mobility, Education, Functional Activity [place], Functional Strength, Gait, Safety, Therapeutic Exercise, Transfers Treatment Duration: Mar 07, 2018 Frequency: 6 times per week Estimated Hrs Per Day: .5 hour per day Patient and/or Family Agrees t: Yes Time/GCodes Time In: 1045 Time Out: 1100 Total Billed Treatment Time: 15 Total Billed Treatment 1 visit FA 15 min VIRGINIA [place] PT Mar 02, 2018 11:20
[2018-03-02 13:42] LABS: ALBUMIN 3.6 GM/DL (3.2-4.5); BILIRUBIN,DIRECT 0.2 MG/DL (0.0-0.3); BILIRUBIN,INDIRECT 0.3 MG/DL; BILIRUBIN,TOTAL 0.5 MG/DL (0.1-1.0); TOTAL PROTEIN 6.4 GM/DL (6.4-8.2)
[2018-03-02 15:33] VITALS: BP 142/68
[2018-03-02 16:04] VITALS: BP 132/85
[2018-03-02] MEDS: AMITRIPTYLINE 150 MG (ELAVIL) TABLET PO SCH (20:23)
[2018-03-03 00:23] VITALS: BP 103/60
[2018-03-03 04:37] LABS: BASOPHILS % (AUTO) 0 % (0-10); EOSINOPHILS # (AUTO) 0.2 10^3/uL (0.0-0.3); EOSINOPHILS % (AUTO) 2 % (0-10); HEMATOCRIT 36 % (35-52); HEMOGLOBIN 11.3 G/DL (11.5-16.0); LYMPHOCYTES # (AUTO) 1.7 X 10^3 (1.0-4.0); LYMPHOCYTES % (AUTO) 24 % (12-44); MEAN CORPUSCULAR HEMOGLOBIN 31 PG (25-34); MEAN CORPUSCULAR HGB CONC 32 G/DL (32-36); MEAN CORPUSCULAR VOLUME 98 FL (80-99); MEAN PLATELET VOLUME 9.1 FL (7.4-10.4); MONOCYTES # (AUTO) 0.5 X 10^3 (0.0-1.0); MONOCYTES % (AUTO) 7 % (0-12); NEUTROPHILS # (AUTO) 4.7 X 10^3 (1.8-7.8); NEUTROPHILS % (AUTO) 66 % (42-75); PLATELET COUNT 382 10^3/uL (130-400); RED BLOOD COUNT 3.66 10^6/uL (4.35-5.85); WHITE BLOOD COUNT 7.1 10^3/uL (4.3-11.0)
[2018-03-03 05:14] LABS: BUN/CREATININE RATIO 12; CARBON DIOXIDE 27 MMOL/L (21-32); CHLORIDE 102 MMOL/L (98-107); CREATININE SERUM 0.68 MG/DL (0.60-1.30); GFR ESTIMATED > 60; GLUCOSE 103 MG/DL (70-105); MAGNESIUM 2.1 MG/DL (1.8-2.4); PHOSPHORUS 3.3 MG/DL (2.3-4.7); POTASSIUM 4.2 MMOL/L (3.6-5.0); SODIUM 138 MMOL/L (135-145)
[2018-03-03] MEDS: RT-ALBUTEROL/IPRATROPIUM 3 ML (DUONEB) VIAL INH SCH ×2 (06:40→18:52)
[2018-03-03] MEDS: RT-ADVAIR HFA 115/21 MCG PER PUFF IH SCH ×2 (06:41→18:52)
[2018-03-03 07:44] VITALS: BP 126/68
[2018-03-03] MEDS: GABAPENTIN 600 MG (NEURONTIN) TAB PO SCH ×2 (08:41→20:33)
[2018-03-03] MEDS: risperiDONE 1 MG (RisperDAL) TAB PO SCH ×2 (08:41→20:33)
--- NOTE | 2018-03-03 10:15 | Progress Note-Hospitalist ---
TERESA LYNN DO 03/03/18 1014: Subjective HPI/CC On Admission Date Seen by Provider: Mar 03, 2018 Time Seen by Provider: 09:00 CC: Seizure, Fall, Nasal FX HPI: The patient is very confused and states that she fell and hit her head "while trying to ride a horse". She claims that she is in no pain currently. She states that she is sleeping well. She is complaining of constipation and difficulty with bowel movements. Subjective/Events-last exam The patient is more coherent and less confused today. She states that her appetite is good and that she has been sleeping well. She reports no N/V/D, no SOB, no headaches. She is complaining of jaw pain on her right side. Review of Systems Gastrointestinal: Constipation Neurological: Confusion Objective Exam Vital Signs Vital Signs Date Time Temp Pulse Resp B/P (MAP) Pulse Ox O2 Delivery O2 Flow Rate FiO2 03/03/18 07:44 98.6 85 20 126/68 (87) 92 Room Air 02/27/18 03:28 21 Capillary Refill : Less Than 3 SecondsLess Than 3 Seconds General Appearance: No Apparent Distress, WD/WN, Chronically ill Respiratory: Chest Non Tender, Lungs Clear, Normal Breath Sounds, No Accessory Muscle Use, No Respiratory Distress Cardiovascular: Regular Rate, Rhythm, No Edema, No Gallop, No JVD, No Murmur, Normal Peripheral Pulses Neurologic/Psychiatric: Alert, No Motor/Sensory Deficits, Disoriented Results/Procedures Lab Laboratory Tests 03/03/18 04:15 Patient resulted labs reviewed. Assessment/Plan Assessment and Plan Assess & Plan/Chief Complaint Plan: ATUL Peña due to oversedation Home meds Dispo soon Check labs in am Difficult social situation Diagnosis/Problems Diagnosis/Problems (1) Sedated due to medication Status: Resolved (2) Gait instability Status: Acute (3) Seizure Status: Acute (4) At risk for bleeding associated with anticoagulants Status: Acute (5) Epilepsy Status: Chronic Qualifiers: Epilepsy type: unspecified Intractability: not intractable Status epilepticus: without status epilepticus Qualified Codes: G40.909 - Epilepsy, unspecified, not intractable, without status epilepticus (6) Fall Status: Acute Qualifiers: Encounter type: initial encounter Qualified Codes: W19.XXXA - Unspecified fall, initial encounter (7) Abrasion head Status: Acute (8) Nasal bones, closed fracture Status: Acute Qualifiers: Encounter type: initial encounter Qualified Codes: S02.2XXA - Fracture of nasal bones, initial encounter for closed fracture (9) Schizo affective schizophrenia Status: Chronic (10) Altered mental state Status: Acute Qualifiers: Altered mental status type: delirium Qualified Codes: R41.0 - Disorientation, unspecified (11) Atrial fibrillation Status: Chronic Qualifiers: Atrial fibrillation type: paroxysmal Qualified Codes: I48.0 - Paroxysmal atrial fibrillation Clinical Quality Measures DVT/VTE Risk/Contraindication: Risk Factor Score Per Nursin RFS Level Per Nursing on Admit: 4+=Very High ALINA MEYERS MED STUDENT 03/03/18 1032: Subjective HPI/CC On Admission CC: Seizure, Fall Nasal Fx HPI: The patient is more cohearent and less confused today. She states that her appetite is good and that she has been sleeping well. She reports no N/V/D, no SOB, no headaches. She is complaining of jaw pain on her right side. Focused Exam Respiratory: Chest Non Tender, Lungs Clear, Normal Breath Sounds, No Accessory Muscle Use, No Respiratory Distress Cardiovascular: Regular Rate, Rhythm, No Edema, No Gallop, No JVD, No Murmur, Normal Peripheral Pulses Skin: normal color, warm/dry Objective Exam General Appearance: No Apparent Distress, WD/WN Respiratory: Chest Non Tender, Lungs Clear, Normal Breath Sounds, No Accessory Muscle Use, No Respiratory Distress Cardiovascular: Regular Rate, Rhythm, No Edema, No Gallop, No JVD, No Murmur, Normal Peripheral Pulses Neurologic/Psychiatric: Alert, No Motor/Sensory Deficits Skin: Normal Color, Warm/Dry Lymphatic: No Adenopathy Assessment/Plan Assessment and Plan Assess & Plan/Chief Complaint Assessment: 1) Epilepsy 2) Nasal Fx 3) Altered mental state Plan: 1) continue to monitor 2) physical therapy to help with ambulation TERESA LYNN DO Mar 03, 2018 10:14 ALINA MEYERS MED STUDENT Mar 03, 2018 10:32
--- NOTE | 2018-03-03 11:29 | Physical Therapy Daily Note ---
PT Daily Note-Current Subjective Patient is in bed with a sitter. More alert initially, however did "fade out" during treatment. Pain Numeric Pain Scale: 0-No Pain Location: No Pain Reported Mental Status Patient Orientation: Confused Transfers Functional [place] Measure 0=Not Assessed/NA 4=Minimal Assistance 1=Total Assistance 5=Supervision or Setup 2=Maximal Assistance 6=Modified [place] 3=Moderate Assistance 7=Complete IndependenceIRFPAI Quality Coding Scale 6 Independent with activity with or without an assistive device 5 Patient requires set up or clean up by helper. Patient completes activity by themselves 4 Supervision or touching assist (CGA). [place] provide cues , steadying assist 3 The helper provides less than half the effort to complete the activity 2 The helper provides more than half the effort to complete the activity 1 Dependent. The helper does all the effort to complete an activity 7 Patient refused to complete or attempt activity 9 The patient did not perform the activity before the current illness or injury 88 Not attempted due to Medical conditions or safety concerns Transfers (B, C, W/C) (FIM): 1 Scootin Rollin Supine to/from Sit: 5 Sit to/from Stand: 1 Bed to/from Chair: 1 Patient became more lethargic and unable to follow simple direction during treatment. Patient did don 1 sock, however, unable to perform this task for other foot and falling to left. Weight Bearing Right Lower Extremity: Right Full Weight Bearing Left Lower Extremity: Left Full Weight Bearing Gait Training Gait (FIM): 1 Distance (FIM): 1=up to 49 ft Distance: 25' Gait Level of Assist: 1 Gait Persons Needed: 2 Gait Assistive Device: None Patient required dependent assist of 2 to ambulate around bed to recliner. Patient unable to sequence gait and demonstrated dyskinesia with all mobility. Assessment Patient was more alert upon arrival, however, did declined in mentation during treatment. Patient unable to sequence gait and continues to be unsafe with mobility. Patient is up in recliner with chair alarm and sitter for her safety. PT Usp Goals Usp Goals PT Usp Goals Time Frame: Mar 07, 2018 Transfers (B,C,W/C) (FIM): 6 Gait (FIM): 6 Gait distance (FIM): 3=150 ft Gait Level of Assist: 6 Gait Assistive Device: None, FWW PT Plan Treatment/Plan Treatment Plan: Continue Plan of Care Treatment Plan: Bed Mobility, Education, Functional Activity [place], Functional Strength, Gait, Safety, Therapeutic Exercise, Transfers Treatment Duration: Mar 07, 2018 Frequency: 6 times per week Estimated Hrs Per Day: .5 hour per day Patient and/or Family Agrees t: Yes Time/GCodes Time In: 1042 Time Out: 1055 Total Billed Treatment Time: 13 Total Billed Treatment 1 visit FA 13 min VIRGINIA MONTANA PT Mar 03, 2018 11:29
[2018-03-03] MEDS: LACTULOSE SYRUP 10GM/15ML (ENULOSE) 30ML UDC PO SCH ×2 (11:36→20:31)
[2018-03-03] MEDS: SENNA W/DOCUSATE (SENOKOT S) TABLET PO SCH ×2 (11:36→20:38)
[2018-03-03] MEDS: POLYETHYLENE GLYCOL 17 GM (MIRALAX) PACK PO SCH ×2 (11:37→20:31)
[2018-03-03 15:08] VITALS: BP 126/79
[2018-03-03] MEDS: AMITRIPTYLINE 150 MG (ELAVIL) TABLET PO SCH (20:31)
[2018-03-04] VITALS: BP 95/55
[2018-03-04 00:30] VITALS: BP 130/82
[2018-03-04 02:00] VITALS: BP 95/55
[2018-03-04 04:30] LABS: BASOPHILS % (AUTO) 0 % (0-10); EOSINOPHILS # (AUTO) 0.2 10^3/uL (0.0-0.3); EOSINOPHILS % (AUTO) 2 % (0-10); HEMATOCRIT 37 % (35-52); HEMOGLOBIN 11.6 G/DL (11.5-16.0); LYMPHOCYTES # (AUTO) 2.1 X 10^3 (1.0-4.0); LYMPHOCYTES % (AUTO) 26 % (12-44); MEAN CORPUSCULAR HEMOGLOBIN 30 PG (25-34); MEAN CORPUSCULAR HGB CONC 31 G/DL (32-36); MEAN CORPUSCULAR VOLUME 97 FL (80-99); MEAN PLATELET VOLUME 9.2 FL (7.4-10.4); MONOCYTES # (AUTO) 0.7 X 10^3 (0.0-1.0); MONOCYTES % (AUTO) 9 % (0-12); NEUTROPHILS % (AUTO) 63 % (42-75); PLATELET COUNT 382 10^3/uL (130-400); RED BLOOD COUNT 3.81 10^6/uL (4.35-5.85); RED CELL DISTRIBUTION WIDTH 14.6 % (10.0-14.5)
[2018-03-04 04:49] LABS: BUN/CREATININE RATIO 13; CALCIUM 9.4 MG/DL (8.5-10.1); CARBON DIOXIDE 26 MMOL/L (21-32); CHLORIDE 103 MMOL/L (98-107); CREATININE SERUM 0.67 MG/DL (0.60-1.30); GFR ESTIMATED > 60; GLUCOSE 102 MG/DL (70-105); MAGNESIUM 2.1 MG/DL (1.8-2.4); POTASSIUM 4.1 MMOL/L (3.6-5.0); SODIUM 140 MMOL/L (135-145)
[2018-03-04 07:22] VITALS: BP 109/66
[2018-03-04] MEDS: POLYETHYLENE GLYCOL 17 GM (MIRALAX) PACK PO SCH ×2 (08:47→20:01)
[2018-03-04] MEDS: risperiDONE 1 MG (RisperDAL) TAB PO SCH ×2 (08:48→20:01)
[2018-03-04] MEDS: GABAPENTIN 600 MG (NEURONTIN) TAB PO SCH ×2 (08:48→20:01)
[2018-03-04] MEDS: SENNA W/DOCUSATE (SENOKOT S) TABLET PO SCH ×2 (08:48→20:01)
[2018-03-04] MEDS: LACTULOSE SYRUP 10GM/15ML (ENULOSE) 30ML UDC PO SCH ×2 (08:57→20:01)
--- NOTE | 2018-03-04 08:58 | Physical Therapy Daily Note ---
PT Daily Note-Current Subjective Pt. in bed, slow to awaken, needs much encouragement and education to move about. Pt. explains several times that she is a head injury and it seem s to be getting worse. Pain Numeric Pain Scale: 0-No Pain Location: No Pain Reported Comment: comments that she feels so tired. Mental Status Patient Orientation: Person, Confused Transfers Functional [place] Measure 0=Not Assessed/NA 4=Minimal Assistance 1=Total Assistance 5=Supervision or Setup 2=Maximal Assistance 6=Modified [place] 3=Moderate Assistance 7=Complete IndependenceIRFPAI Quality Coding Scale 6 Independent with activity with or without an assistive device 5 Patient requires set up or clean up by helper. Patient completes activity by themselves 4 Supervision or touching assist (CGA). [place] provide cues , steadying assist 3 The helper provides less than half the effort to complete the activity 2 The helper provides more than half the effort to complete the activity 1 Dependent. The helper does all the effort to complete an activity 7 Patient refused to complete or attempt activity 9 The patient did not perform the activity before the current illness or injury 88 Not attempted due to Medical conditions or safety concerns Transfers (B, C, W/C) (FIM): 5 Scootin Rollin Supine to/from Sit: 5 Sit to/from Stand: 5 needed education and instruction for safe techniques for TRFs, use of hands etc Weight Bearing Right Lower Extremity: Right Full Weight Bearing Left Lower Extremity: Left Full Weight Bearing Gait Training Gait (FIM): 2 Distance (FIM): 0=059-20 ft (125, 25) Gait Level of Assist: 4 Gait Persons Needed: 1 Gait Assistive Device: FWW needed education regarding use of FWW and benefits of gait and activity for health Exercises Supine Ex: Bridging, Ankle pumps, Quad Set, Rolling, Heel Slides, Scooting, Straight leg raise, Hip abd/add Supine Reps: 12 Treatments sitting EOB for a bit as well as static stance at side of bed for balance and cues to open etc Assessment Current Status: Good Progress needs encouraged to participate PT [facility] Goals Journeyman Pressman Goals PT Journeyman Pressman Goals Time Frame: Mar 07, 2018 Transfers (B,C,W/C) (FIM): 6 Gait (FIM): 6 Gait distance (FIM): 3=150 ft Gait Level of Assist: 6 Gait Assistive Device: None, FWW PT Plan Treatment/Plan Treatment Plan: Continue Plan of Care Treatment Plan: Bed Mobility, Education, Functional Activity [place], Functional Strength, Gait, Safety, Therapeutic Exercise, Transfers Treatment Duration: Mar 07, 2018 Frequency: 6 times per week Estimated Hrs Per Day: .5 hour per day Patient and/or Family Agrees t: Yes Safety Risks/Education Patient Education: Gait Training, Transfer Techniques, Correct Positioning, Disease Process, Safety Issues Teaching Recipient: Patient Teaching Methods: Demonstration, Discussion Response to Teaching: Verbalize Understanding, Return Demonstration, Reinforcement Needed Time/GCodes Time In: 820 Time Out: 850 Total Billed Treatment Time: 30 Total Billed Treatment 1,EX15m,GT15 G Codes Necessary: PATO La RACEHORSE TRAINER Mar 04, 2018 08:58
[2018-03-04] MEDS: RT-ALBUTEROL/IPRATROPIUM 3 ML (DUONEB) VIAL INH SCH ×2 (09:40→18:13)
[2018-03-04] MEDS: RT-ADVAIR HFA 115/21 MCG PER PUFF IH SCH ×2 (09:41→18:13)
[2018-03-04] MEDS ORDERED: ONDANSETRON 4 MG (ZOFRAN) ORAL DISSOLVE TAB PO PRN (10:30)
[2018-03-04] MEDS ORDERED: BISACODYL 10 MG SUPP (DULCOLAX) PR NR (10:30)
[2018-03-04] MEDS ORDERED: ONDANSETRON 4 MG/2 ML (SDV) Z0FRAN IVP PRN (10:30)
--- NOTE | 2018-03-04 10:31 | Progress Note-Hospitalist ---
TERESA LYNN DO 03/04/18 1031: Subjective HPI/CC On Admission Date Seen by Provider: Mar 04, 2018 Time Seen by Provider: 09:30 CC: Seizure, Fall Nasal Fx HPI: The patient is more cohearent and less confused today. She states that her appetite is good and that she has been sleeping well. She reports no N/V/D, no SOB, no headaches. She is complaining of jaw pain on her right side. Subjective/Events-last exam Had 1 episode of emesis immediately before I arrived at the bedside so I ordered Zofran Pt now inpt status Mariana DC has helped sedation MRI will be ordered in case we need to transfer to [place] for Neurology No BM yet Soft abdomen Review of Systems General: Fatigue Gastrointestinal: Nausea, Vomiting Neurological: Confusion Objective Exam Vital Signs Vital Signs Date Time Temp Pulse Resp B/P (MAP) Pulse Ox O2 Delivery O2 Flow Rate FiO2 03/04/18 07:22 98.0 83 18 109/66 (80) 94 Room Air 02/27/18 03:28 21 Capillary Refill : Less Than 3 SecondsLess Than 3 Seconds General Appearance: No Apparent Distress, WD/WN, Chronically ill Respiratory: Chest Non Tender, Lungs Clear, Normal Breath Sounds, No Accessory Muscle Use, No Respiratory Distress Cardiovascular: Regular Rate, Rhythm, No Edema, No Gallop, No JVD, No Murmur, Normal Peripheral Pulses Gastrointestinal: Normal Bowel Sounds, No Organomegaly, No Pulsatile Mass, Non Tender, Soft Neurologic/Psychiatric: Alert, No Motor/Sensory Deficits, Disoriented Skin: Normal Color, Warm/Dry Results/Procedures Lab Laboratory Tests 03/04/18 04:00 Patient resulted labs reviewed. Assessment/Plan Assessment and Plan Assess & Plan/Chief Complaint Plan: ATUL Peña due to oversedation [facility] Check labs in am Difficult social situation Check MRI Diagnosis/Problems Diagnosis/Problems (1) TBI (traumatic brain injury) Status: Chronic Qualifiers: Encounter type: sequela Loss of consciousness presence/duration: with LOC of unspecified duration Qualified Codes: S06.9X9S - Unspecified intracranial injury with loss of consciousness of unspecified duration, sequela (2) Sedated due to medication Status: Resolved (3) Gait instability Status: Acute (4) Seizure Status: Acute (5) At risk for bleeding associated with anticoagulants Status: Acute (6) Epilepsy Status: Chronic Qualifiers: Epilepsy type: unspecified Intractability: not intractable Status epilepticus: without status epilepticus Qualified Codes: G40.909 - Epilepsy, unspecified, not intractable, without status epilepticus (7) Fall Status: Acute Qualifiers: Encounter type: initial encounter Qualified Codes: W19.XXXA - Unspecified fall, initial encounter (8) Abrasion head Status: Acute (9) Nasal bones, closed fracture Status: Acute Qualifiers: Encounter type: initial encounter Qualified Codes: S02.2XXA - Fracture of nasal bones, initial encounter for closed fracture (10) Schizo affective schizophrenia Status: Chronic (11) Altered mental state Status: Acute Qualifiers: Altered mental status type: delirium Qualified Codes: R41.0 - Disorientation, unspecified (12) Atrial fibrillation Status: Chronic Qualifiers: Atrial fibrillation type: paroxysmal Qualified Codes: I48.0 - Paroxysmal atrial fibrillation Clinical Quality Measures DVT/VTE Risk/Contraindication: Risk Factor Score Per Nursin RFS Level Per Nursing on Admit: 4+=Very High ALINA MEYERS MED STUDENT 03/04/18 1130: Subjective Subjective/Events-last exam Pt. is still very confused She states that she is having pain in the right side of her head Pt. states that she slept well last night She has not had N/V/D, still has not had a bowel movement Objective Exam General Appearance: No Apparent Distress, WD/WN Respiratory: Chest Non Tender, Lungs Clear, Normal Breath Sounds, No Accessory Muscle Use, No Respiratory Distress Cardiovascular: Regular Rate, Rhythm, No Edema, No Gallop, No JVD, No Murmur, Normal Peripheral Pulses Neurologic/Psychiatric: Alert, No Motor/Sensory Deficits Skin: Normal Color, Warm/Dry Assessment/Plan Assessment and Plan Assess & Plan/Chief Complaint Assessment: 1) Epilepsy 2) Altered mental state Plan: 1) Continue medications 2) Physical therapy referral TERESA LYNN DO Mar 04, 2018 10:31 ALINA MEYERS MED STUDENT Mar 04, 2018 11:30
[2018-03-04] MEDS: LORazepam 1 MG (ATIVAN) TAB PO PRN (14:50)
[2018-03-04] MEDS ORDERED: GADOBUTROL 7.5 MMOL/7.5 ML (GADAVIST) VIAL IV ONE (15:30)
[2018-03-04 16:00] VITALS: BP 99/60
--- NOTE | 2018-03-04 16:29 | Diagnostic Imaging Report ---
PROCEDURE: MR imaging of the brain with and without contrast. TECHNIQUE: Multiplanar, multisequence MR imaging of the brain was performed with and without contrast. INDICATION: History of seizures and history of traumatic brain injury. Exam compared 02/28/2016 and correlated with more recent CT head performed 02/28/2018. FINDINGS: There are no foci of abnormal diffusion restriction. There were no findings of an acute or subacute ischemic infarct and there is no evidence for acute or chronic intracranial hemorrhage or old blood degradation products. The hippocampal formations had an unremarkable volume, morphology and signal intensity. With IV contrast, no abnormal parenchymal or meningeal enhancement is shown. The basilar cisterns are patent. The sulci non-effaced. There is enhancement of the major dural venous sinuses. The mastoids clear. Orbits and paranasal sinuses nonacute. The midline structures are nondisplaced. There is enhancement of the major dural venous sinuses. Nonspecific T2 hyperintense periventricular white matter disease is relatively symmetric and most notably adjacent to the atria and posterior bodies of the lateral ventricles showing a mild degree of interval progression from prior and while remaining nonspecific is often attributed to the sequelae of chronic small vessel disease. Very slight subcortical white matter disease in frontoparietal distribution, greater right not appreciably changed. No findings of focal or generalized edema and no evidence for an elevation of the intracranial pressures. No hernandez matter heterotopia found. IMPRESSION: Nonspecific periventricular white matter disease showed slight progression from the study of 2 years earlier. No infarct, hemorrhage, edema or acute-appearing pathology. Dictated by: Dictated on workstation # [id number]
[2018-03-04] MEDS: AMITRIPTYLINE 150 MG (ELAVIL) TABLET PO SCH (20:01)
[2018-03-04 23:18] VITALS: BP 138/68
[2018-03-05] MEDS: LORazepam 1 MG (ATIVAN) TAB PO PRN (04:39)
[2018-03-05] MEDS: RT-ADVAIR HFA 115/21 MCG PER PUFF IH SCH ×2 (06:16→19:34)
[2018-03-05] MEDS: RT-ALBUTEROL/IPRATROPIUM 3 ML (DUONEB) VIAL INH SCH ×2 (06:16→19:34)
[2018-03-05 06:17] LABS: BASOPHILS # (AUTO) 0.1 10^3/uL (0.0-0.1); BASOPHILS % (AUTO) 1 % (0-10); EOSINOPHILS # (AUTO) 0.2 10^3/uL (0.0-0.3); EOSINOPHILS % (AUTO) 3 % (0-10); HEMATOCRIT 37 % (35-52); HEMOGLOBIN 11.8 G/DL (11.5-16.0); LYMPHOCYTES % (AUTO) 26 % (12-44); MEAN CORPUSCULAR HEMOGLOBIN 31 PG (25-34); MEAN CORPUSCULAR HGB CONC 32 G/DL (32-36); MEAN CORPUSCULAR VOLUME 97 FL (80-99); MONOCYTES # (AUTO) 0.9 X 10^3 (0.0-1.0); MONOCYTES % (AUTO) 12 % (0-12); NEUTROPHILS # (AUTO) 4.5 X 10^3 (1.8-7.8); NEUTROPHILS % (AUTO) 58 % (42-75); PLATELET COUNT 420 10^3/uL (130-400); RED BLOOD COUNT 3.81 10^6/uL (4.35-5.85); RED CELL DISTRIBUTION WIDTH 14.4 % (10.0-14.5); WHITE BLOOD COUNT 7.8 10^3/uL (4.3-11.0)
[2018-03-05 06:33] LABS: BUN/CREATININE RATIO 18; CALCIUM 9.7 MG/DL (8.5-10.1); CARBON DIOXIDE 27 MMOL/L (21-32); CHLORIDE 102 MMOL/L (98-107); CREATININE SERUM 0.73 MG/DL (0.60-1.30); GFR ESTIMATED > 60; GLUCOSE 109 MG/DL (70-105); PHOSPHORUS 3.1 MG/DL (2.3-4.7); POTASSIUM 4.1 MMOL/L (3.6-5.0); SODIUM 138 MMOL/L (135-145)
[2018-03-05 08:00] VITALS: BP 102/65
--- NOTE | 2018-03-05 09:13 | Progress Note-Hospitalist ---
Subjective HPI/CC On Admission Date Seen by Provider: Mar 05, 2018 Time Seen by Provider: 09:30 CC: Seizure, Fall Nasal Fx HPI: The patient is more cohearent and less confused today. She states that her appetite is good and that she has been sleeping well. She reports no N/V/D, no SOB, no headaches. She is complaining of jaw pain on her right side. Subjective/Events-last exam Patient is doing much better and now she is opening her eyes and talking to us Appears to be slightly paranoid with people but physical therapy did work with her and she walked 225 feet with a walker Checked meds and labs MRI reviewed We will reach out to [facility] Review of Systems Neurological: Confusion Objective Exam Vital Signs Vital Signs Date Time Temp Pulse Resp B/P (MAP) Pulse Ox O2 Delivery O2 Flow Rate FiO2 03/05/18 09:00 Room Air 03/05/18 08:00 98.1 74 20 102/65 (77) 92 02/27/18 03:28 21 Capillary Refill : Less Than 3 SecondsLess Than 3 Seconds General Appearance: No Apparent Distress, WD/WN, Chronically ill Respiratory: Chest Non Tender, Lungs Clear, Normal Breath Sounds, No Accessory Muscle Use, No Respiratory Distress Cardiovascular: Regular Rate, Rhythm, No Edema, No Gallop, No JVD, No Murmur, Normal Peripheral Pulses Neurologic/Psychiatric: Alert, Oriented x3, No Motor/Sensory Deficits, Normal Mood/Affect, Disoriented Results/Procedures Lab Laboratory Tests 03/05/18 05:41 Patient resulted labs reviewed. Assessment/Plan Assessment and Plan Assess & Plan/Chief Complaint Assessment: Delirium Psych hx TBI remotely Fall with [facility] Plan: DC Keppra due to oversedation [facility]? Difficult social situation Diagnosis/Problems Diagnosis/Problems (1) TBI (traumatic brain injury) Status: Chronic Qualifiers: Encounter type: sequela Loss of consciousness presence/duration: with LOC of unspecified duration Qualified Codes: S06.9X9S - Unspecified intracranial injury with loss of consciousness of unspecified duration, sequela (2) Sedated due to medication Status: Resolved (3) Gait instability Status: Acute (4) Seizure Status: Acute (5) At risk for bleeding associated with anticoagulants Status: Acute (6) Epilepsy Status: Chronic Qualifiers: Epilepsy type: unspecified Intractability: not intractable Status epilepticus: without status epilepticus Qualified Codes: G40.909 - Epilepsy, unspecified, not intractable, without status epilepticus (7) Fall Status: Acute Qualifiers: Encounter type: initial encounter Qualified Codes: W19.XXXA - Unspecified fall, initial encounter (8) Abrasion head Status: Acute (9) Nasal bones, closed fracture Status: Acute Qualifiers: Encounter type: initial encounter Qualified Codes: S02.2XXA - Fracture of nasal bones, initial encounter for closed fracture (10) Schizo affective schizophrenia Status: Chronic (11) Altered mental state Status: Acute Qualifiers: Altered mental status type: delirium Qualified Codes: R41.0 - Disorientation, unspecified (12) Atrial fibrillation Status: Chronic Qualifiers: Atrial fibrillation type: paroxysmal Qualified Codes: I48.0 - Paroxysmal atrial fibrillation Clinical Quality Measures DVT/VTE Risk/Contraindication: Risk Factor Score Per Nursin RFS Level Per Nursing on Admit: 4+=Very High TERESA YLNN DO Mar 05, 2018 09:13
[2018-03-05] MEDS: POLYETHYLENE GLYCOL 17 GM (MIRALAX) PACK PO SCH ×2 (09:28→22:11)
[2018-03-05] MEDS: SENNA W/DOCUSATE (SENOKOT S) TABLET PO SCH ×2 (09:28→22:09)
[2018-03-05] MEDS: risperiDONE 1 MG (RisperDAL) TAB PO SCH ×2 (09:28→22:10)
[2018-03-05] MEDS: GABAPENTIN 600 MG (NEURONTIN) TAB PO SCH ×2 (09:28→22:10)
[2018-03-05] MEDS: LACTULOSE SYRUP 10GM/15ML (ENULOSE) 30ML UDC PO SCH ×2 (09:28→22:10)
--- NOTE | 2018-03-05 11:39 | Physical Therapy Daily Note ---
PT Daily Note-Current Subjective Patient is in bed with sitter present. Will not open her eyes, however, does respond when spoken to. Patient becomes agitates with request of increase in activity, however, does comply. Transfers Functional [place] Measure 0=Not Assessed/NA 4=Minimal Assistance 1=Total Assistance 5=Supervision or Setup 2=Maximal Assistance 6=Modified [place] 3=Moderate Assistance 7=Complete IndependenceIRFPAI Quality Coding Scale 6 Independent with activity with or without an assistive device 5 Patient requires set up or clean up by helper. Patient completes activity by themselves 4 Supervision or touching assist (CGA). [place] provide cues , steadying assist 3 The helper provides less than half the effort to complete the activity 2 The helper provides more than half the effort to complete the activity 1 Dependent. The helper does all the effort to complete an activity 7 Patient refused to complete or attempt activity 9 The patient did not perform the activity before the current illness or injury 88 Not attempted due to Medical conditions or safety concerns Transfers (B, C, W/C) (FIM): 4 Scootin Supine to/from Sit: 4 Sit to/from Stand: 4 Bed to/from Chair: 4 CGA for safety with use of gait belt Weight Bearing Right Lower Extremity: Right Full Weight Bearing Left Lower Extremity: Left Full Weight Bearing Gait Training Gait (FIM): 4 Distance (FIM): 3=150 ft Distance: 225' Gait Level of Assist: 4 Gait Persons Needed: 1 Gait Assistive Device: FWW functional gait sequence, however, does require much encouragement. Assessment Patient is progressing with gross motor skills, however, continues to require encouragement to participate. PT Floor Person Goals [facility] Goals PT Floor Person Goals Time Frame: Mar 07, 2018 Transfers (B,C,W/C) (FIM): 6 Gait (FIM): 6 Gait distance (FIM): 3=150 ft Gait Level of Assist: 6 Gait Assistive Device: None, FWW PT Plan Treatment/Plan Treatment Plan: Continue Plan of Care Treatment Plan: Bed Mobility, Education, Functional Activity [place], Functional Strength, Gait, Safety, Therapeutic Exercise, Transfers Treatment Duration: Mar 07, 2018 Frequency: 6 times per week Estimated Hrs Per Day: .5 hour per day Patient and/or Family Agrees t: Yes Time/GCodes Time In: 1052 Time Out: 1100 Total Billed Treatment Time: 8 Total Billed Treatment 1 visit FA 8 min VIR[place]IA MON[place]NA PT Mar 05, 2018 11:39
[2018-03-05 16:05] VITALS: BP 114/62
[2018-03-05] MEDS: AMITRIPTYLINE 150 MG (ELAVIL) TABLET PO SCH (22:09)
[2018-03-06] VITALS: BP 126/78
[2018-03-06 05:00] VITALS: BP 107/78
[2018-03-06 06:50] LABS: BASOPHILS # (AUTO) 0.1 10^3/uL (0.0-0.1); BASOPHILS % (AUTO) 1 % (0-10); EOSINOPHILS # (AUTO) 0.3 10^3/uL (0.0-0.3); EOSINOPHILS % (AUTO) 3 % (0-10); HEMATOCRIT 40 % (35-52); HEMOGLOBIN 12.3 G/DL (11.5-16.0); LYMPHOCYTES # (AUTO) 1.8 X 10^3 (1.0-4.0); LYMPHOCYTES % (AUTO) 20 % (12-44); MEAN CORPUSCULAR HEMOGLOBIN 31 PG (25-34); MEAN CORPUSCULAR HGB CONC 31 G/DL (32-36); MEAN CORPUSCULAR VOLUME 99 FL (80-99); MONOCYTES # (AUTO) 0.9 X 10^3 (0.0-1.0); MONOCYTES % (AUTO) 10 % (0-12); NEUTROPHILS # (AUTO) 5.9 X 10^3 (1.8-7.8); NEUTROPHILS % (AUTO) 66 % (42-75); PLATELET COUNT 390 10^3/uL (130-400); RED BLOOD COUNT 4.03 10^6/uL (4.35-5.85); RED CELL DISTRIBUTION WIDTH 14.2 % (10.0-14.5); WHITE BLOOD COUNT 8.9 10^3/uL (4.3-11.0)
[2018-03-06 07:11] LABS: BUN/CREATININE RATIO 15; CALCIUM 9.5 MG/DL (8.5-10.1); CARBON DIOXIDE 27 MMOL/L (21-32); CHLORIDE 102 MMOL/L (98-107); CREATININE SERUM 0.74 MG/DL (0.60-1.30); GFR ESTIMATED > 60; GLUCOSE 91 MG/DL (70-105); MAGNESIUM 1.7 MG/DL (1.8-2.4); PHOSPHORUS 3.3 MG/DL (2.3-4.7); POTASSIUM 4.2 MMOL/L (3.6-5.0); SODIUM 141 MMOL/L (135-145)
[2018-03-06 07:56] VITALS: BP 134/68
[2018-03-06] MEDS: SENNA W/DOCUSATE (SENOKOT S) TABLET PO SCH (08:06)
[2018-03-06] MEDS: GABAPENTIN 600 MG (NEURONTIN) TAB PO SCH (08:06)
[2018-03-06] MEDS: risperiDONE 1 MG (RisperDAL) TAB PO SCH (08:06)
[2018-03-06] MEDS: LACTULOSE SYRUP 10GM/15ML (ENULOSE) 30ML UDC PO SCH (08:07)
[2018-03-06] MEDS: POLYETHYLENE GLYCOL 17 GM (MIRALAX) PACK PO SCH (08:08)
[2018-03-06] MEDS: RT-ALBUTEROL/IPRATROPIUM 3 ML (DUONEB) VIAL INH SCH (09:06)
[2018-03-06] MEDS: RT-ADVAIR HFA 115/21 MCG PER PUFF IH SCH (09:06)
--- NOTE | 2018-03-06 11:30 | Progress Note-Hospitalist ---
TERESA LYNN DO 03/06/18 1130: Subjective HPI/CC On Admission Date Seen by Provider: Mar 06, 2018 Time Seen by Provider: 11:00 CC: Seizure, Fall Nasal Fx HPI: The patient is more cohearent and less confused today. She states that her appetite is good and that she has been sleeping well. She reports no N/V/D, no SOB, no headaches. She is complaining of jaw pain on her right side. Subjective/Events-last exam Patient seems to be more lucid when I talked to her but was confused earlier Psychiatric evaluation and transfer to the [place] in [place] is planned Walking with PT and doing pretty well Review of Systems Neurological: Confusion Objective Exam Vital Signs Vital Signs Date Time Temp Pulse Resp B/P (MAP) Pulse Ox O2 Delivery O2 Flow Rate FiO2 03/06/18 09:06 92 Room Air 03/06/18 07:56 97.4 78 20 134/68 (90) Capillary Refill : Less Than 3 SecondsLess Than 3 Seconds General Appearance: No Apparent Distress, WD/WN, Chronically ill Respiratory: Chest Non Tender, Lungs Clear, Normal Breath Sounds, No Accessory Muscle Use, No Respiratory Distress Cardiovascular: Regular Rate, Rhythm, No Edema, No Gallop, No JVD, No Murmur, Normal Peripheral Pulses Neurologic/Psychiatric: Alert, No Motor/Sensory Deficits, Normal Mood/Affect, Disoriented Results/Procedures Lab Laboratory Tests 03/06/18 06:37 Patient resulted labs reviewed. Assessment/Plan Assessment and Plan Assess & Plan/Chief Complaint Assessment: Delirium Psych hx TBI remotely Fall with [facility] Plan: DC Keppra due to oversedation Home meds Dispo maybe to [place]? Difficult social situation I suspect this is now a psych acute issue so pending dispo Diagnosis/Problems Diagnosis/Problems (1) Psychosis Status: Acute (2) TBI (traumatic brain injury) Status: Chronic Qualifiers: Encounter type: sequela Loss of consciousness presence/duration: with LOC of unspecified duration Qualified Codes: S06.9X9S - Unspecified intracranial injury with loss of consciousness of unspecified duration, sequela (3) Sedated due to medication Status: Resolved (4) Gait instability Status: Acute (5) Seizure Status: Acute (6) At risk for bleeding associated with anticoagulants Status: Acute (7) Epilepsy Status: Chronic Qualifiers: Epilepsy type: unspecified Intractability: not intractable Status epilepticus: without status epilepticus Qualified Codes: G40.909 - Epilepsy, unspecified, not intractable, without status epilepticus (8) Fall Status: Acute Qualifiers: Encounter type: initial encounter Qualified Codes: W19.XXXA - Unspecified fall, initial encounter (9) Abrasion head Status: Acute (10) Nasal bones, closed fracture Status: Acute Qualifiers: Encounter type: initial encounter Qualified Codes: S02.2XXA - Fracture of nasal bones, initial encounter for closed fracture (11) Schizo affective schizophrenia Status: Chronic (12) Altered mental state Status: Acute Qualifiers: Altered mental status type: delirium Qualified Codes: R41.0 - Disorientation, unspecified (13) Atrial fibrillation Status: Chronic Qualifiers: Atrial fibrillation type: paroxysmal Qualified Codes: I48.0 - Paroxysmal atrial fibrillation Clinical Quality Measures DVT/VTE Risk/Contraindication: Risk Factor Score Per Nursin RFS Level Per Nursing on Admit: 4+=Very High ALINA MEYERS MED STUDENT 03/06/18 1146: Subjective Subjective/Events-last exam Pt. seems to be less confused today She states that she is feeling well She claims that she experienced some nausea and vomiting last night She agrees to try and ambulate more in order to build her strength She is currently not in pain Objective Exam General Appearance: No Apparent Distress, WD/WN Respiratory: Chest Non Tender, Lungs Clear, Normal Breath Sounds, No Accessory Muscle Use, No Respiratory Distress Cardiovascular: Regular Rate, Rhythm, No Edema, No Gallop, No JVD, No Murmur, Normal Peripheral Pulses Neurologic/Psychiatric: Alert, Normal Mood/Affect, Disoriented Skin: Normal Color, Warm/Dry Lymphatic: No Adenopathy Assessment/Plan Assessment and Plan Assess & Plan/Chief Complaint Assessment: 1) Epilepsy 2) Generalized weakness 3) Altered mental status Plan: 1) Continue to monitor 2) Begin ambulating more TERESA LYNN DO Mar 06, 2018 11:30 ALINA MEYERS MED STUDENT Mar 06, 2018 11:46
--- NOTE | 2018-03-06 12:07 | Physical Therapy Daily Note ---
PT Daily Note-Current Subjective Patient is more alert and cooperative on this date. She continues to require a sitter for safety measures. Pain Numeric Pain Scale: 0-No Pain Location: No Pain Reported Mental Status Patient Orientation: Confused Transfers Functional [place] Measure 0=Not Assessed/NA 4=Minimal Assistance 1=Total Assistance 5=Supervision or Setup 2=Maximal Assistance 6=Modified [place] 3=Moderate Assistance 7=Complete IndependenceIRFPAI Quality Coding Scale 6 Independent with activity with or without an assistive device 5 Patient requires set up or clean up by helper. Patient completes activity by themselves 4 Supervision or touching assist (CGA). [place] provide cues , steadying assist 3 The helper provides less than half the effort to complete the activity 2 The helper provides more than half the effort to complete the activity 1 Dependent. The helper does all the effort to complete an activity 7 Patient refused to complete or attempt activity 9 The patient did not perform the activity before the current illness or injury 88 Not attempted due to Medical conditions or safety concerns Transfers (B, C, W/C) (FIM): 5 Scootin Rollin Supine to/from Sit: 5 Sit to/from Stand: 5 Weight Bearing Right Lower Extremity: Right Full Weight Bearing Left Lower Extremity: Left Full Weight Bearing Gait Training Gait (FIM): 5 Distance (FIM): 3=150 ft Distance: 500' Gait Level of Assist: 5 Gait Assistive Device: FWW slightly unsteady with self correction Assessment Progressing with treatment plan. Plan dismissal soon. PT Halfway Goals Halfway Goals PT Film Process Operator Goals Time Frame: Mar 07, 2018 Transfers (B,C,W/C) (FIM): 6 Gait (FIM): 6 Gait distance (FIM): 3=150 ft Gait Level of Assist: 6 Gait Assistive Device: None, FWW PT Plan Treatment/Plan Treatment Plan: Continue Plan of Care Treatment Plan: Bed Mobility, Education, Functional Activity [place], Functional Strength, Gait, Safety, Therapeutic Exercise, Transfers Treatment Duration: Mar 07, 2018 Frequency: 6 times per week Estimated Hrs Per Day: .5 hour per day Patient and/or Family Agrees t: Yes Time/GCodes Time In: 950 Time Out: 1000 Total Billed Treatment Time: 10 Total Billed Treatment 1 visit FA 10 min [place] PT Mar 06, 2018 12:07
[2018-03-06] MEDS ORDERED: ACETAMINOPHEN 500 MG TAB (TYLENOL) PO PRN (15:45)
[2018-03-06 16:00] VITALS: BP 114/61
[2018-03-06] MEDS ORDERED: LORazepam 1 MG (ATIVAN) TAB PO NR (17:45)
[2018-03-06 19:57] VITALS: BP 114/61
--- OUTSIDE RECORDS SUMMARY | 2018-03-10 13:49 | XMS REPORT | Clinical Summary ---
Author [facility] Address Unknown Phone Unavailable Care Team Providers Care Mica Washer Gluer Name Role Phone RamonMarla hawkins MARBLEIZER PCP Source Comments Some departments are not documenting in the electronic medical record. 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
--- OUTSIDE RECORDS SUMMARY | 2018-03-10 13:49 | XMS REPORT ---
Author Author ITZEL TAY [facility] Address [address] [place] [address] Care Team Providers Care Swine Genetics Researcher Name Role Phone MUSHTAQJARREDITZEL Merritt Unavailable PROBLEMS Type Condition ICD9-CM Code VLN13-OR Code Onset Dates Condition Status SNOMED Code Problem Referred by primary care physician Z76.89 Active 8838093307129 Problem Posttraumatic stress disorder F43.10 Active 10727002 Problem Mood disorder F39 Active 10416504 Problem Other acute pulmonary embolism without acute cor pulmonale I26.99 Active 725015788 Problem Severe episode of recurrent major depressive disorder, without psychotic features F33.2 Active 12512478 Problem Trigeminal neuralgia of right side of face G50.0 Active 04485452 Problem Panic attacks F41.0 Active 289561428 Problem Personality disorder in adult F60.9 Active 08471902 Problem Chronic pain disorder G89.4 Active 526977182 ALLERGIES No Information ENCOUNTERS Encounter Location Date Diagnosis [facility] [id number] [place] [address] 84816- 2701 Feb, [facility] [address] [address] Jan, [facility] [id number] [place] [address] 88545- 9311 Feb, [facility] [address] [address] 8[address] Jan, [facility] [id number] [place] [address] 02921- 8180 Jan, [facility] [address] [address] 4873 Jan, [facility] [id number] [place] [address] 35592- 9742 Jan, [facility] [id number] [place] [address] 7[address] Dec, [facility] [id number] [address] Dec, Posttraumatic stress disorder F43.10 [facility] [address] [facility] [id number] [address] Dec, [facility] [address] [facility] [id number] [address] 4089 Dec, [facility] [id number] [place] [address] 91983- 4427 Dec, [facility] [id number] [address] 3324 Dec, [facility] [id number] [place] [address] 90060- 4594 Dec, [facility] [id number] [address] 8254 Dec, [facility] [address] [address] 3809 Dec, [facility] [id number] [address]- 0986 Dec, [facility] [address] [address] 40[address] Dec, Posttraumatic stress disorder F43.10 ; Severe episode of recurrent major depressive disorder, without psychotic features F33.2 and Personality disorder in adult F60.9 [facility] [id number] [address] 9979 Nov, [facility] [id number] [address] 8014 Oct, [facility] [id number] [address] 9778 Oct, [facility] [address] [facility] [id number] [place] [address]- 2760 Oct, [facility] [id number] [address] 1501 Oct, Posttraumatic stress disorder F43.10 ; Severe episode of recurrent major depressive disorder, without psychotic features F33.2 and Personality disorder in adult F60.9 [facility] [address] [facility] [id number] [place] [address]- 2584 Oct, [facility] [address] [facility] [id number] [place] [address]- 8604 Oct, [facility] [address] [facility] [id number] [place] [address]- 6054 September, [facility] [id number] [place] [address]- 0205 September, [facility] [id number] [address]- 0551 September, [facility] [address] [facility] [id number] [place] [address]- 9300 September, [facility] [id number] [address]- 9825 September, [facility] [id number] [place] [address]- 6939 September, [facility] [address] [facility] [id number] [address] 2719 September, [facility] [address] [facility] [id number] [place] [address]- 6715 September, Posttraumatic stress disorder F43.10 ; Severe episode of recurrent major depressive disorder, without psychotic features F33.2 and Personality disorder in adult F60.9 [facility] [address] [facility] [id number] [address] September, [facility] [id number] [address]- 9080 September, [facility] [address] [id number] [place] [address]- 7129 September, Other pulmonary embolism without acute cor pulmonale, unspecified chronicity I26.99 [facility] [address] [id number] [place] [address]- 7922 September, [facility] [address] [id number] [place] [address]- 0753 September, [facility] [address] [id number] [place] [address]- 5988 September, [facility] [address] [id number] [place] [address]- 8112 September, [facility] [address] [id number] [place] [address]- 0336 September, [facility] [address] [id number] [place] [address]- 0139 Aug, [facility] [address] [id number] [place] [address]- 3023 Aug, [facility] [address] [id number] [place] [address]- 5092 Aug, [facility] [address] [id number] [place] [address]- 5391 Aug, [facility] [address] [id number] [place] [address]- 6759 Aug, [facility] [place] [facility] [address] [id number] [place] [address]- 5402 Aug, [facility] [place] [facility] [address] [id number] [place] [address]- 9389 Jul, [facility] [place] [facility] [address] [id number] [place] [address]- 5927 Jul, [facility] [place] [facility] [address] [id number] [address]- 6915 Jul, [facility] [address] [id number] [id number] Jul, [facility] [address] [facility] [id number][place] [address]- 4176 Jul, [facility] [id number] [address]- 2388 Jul, [facility] [address] [address] Jul, Other specified bacterial agents as the cause of diseases classified elsewhere B96.89 and Local infection of the skin and subcutaneous tissue, unspecified L08.9 [facility] [address] [address]- 4976 Jul, [facility] [address] [address]- 7816 Jun, [facility] [address] [address] Jun, [facility] [address] [address] Jun, [facility] [address] [address]- 8306 Jun, [facility] [id number] [address]- 6458 May, [facility] [id number] [address]- 8059 May, [facility] [id number] [address]- 5445 May, Neurodermatitis L28.0 [facility] [id number] [address]- 5476 May, [facility] [id number] [address]132 May, [facility] [address] [address]- 9408 May, [facility] [id number] [place] [address] 61764- 3714 May, [facility] [address] [address]- 8436 May, Screening, lipid Z13.220 and High risk medication use Z79.899 [facility] [id number] [place] [address] 02159- 6752 May, [facility] [id number] [place] [address] 14888- 0167 May, [facility] [id number] [place] [address] 21159- 4232 May, [facility] [id number] [place] [address] 26955- 7093 Apr, [facility] [id number] [place] [address] 28319- 1315 Apr, [facility] [id number] [place] [address] 81365- 5854 Apr, [facility] [address] [address]- 2636 Apr, [facility] [id number] [place] [address] 52161- 9569 Apr, Posttraumatic stress disorder F43.10 and Trigeminal neuralgia of right side of face G50.0 [facility] [address] [address]- 3079 Apr, [facility] [id number] [place] [address] 84582- 8048 Apr, [facility] [address] [address]- 0786 Apr, [facility] [address] [id number] [address]- 3966 Mar, Trigeminal neuralgia of right side of face G50.0 [facility] [address] [facility] [id number], [place] [address] 2546 Mar, [facility] [address] [facility] [id number], [place] [address] 2546 Mar, Posttraumatic stress disorder F43.10 and Mood disorder F39 [facility] [address] [facility] [id number] [place] [address] 80010 2546 Mar, [facility] [address] [facility] [id number] [address] 2546 Mar, [facility] [address] [facility] [id number] [place] [address] 64772 2546 Mar, [facility] [id number] [place] [address] 72195 2546 08 Mar, 2016 [facility] [id number] [place] [address] 61268 2546 Mar, [facility] [id number] [place] [address] 56483 2546 Mar, Posttraumatic stress disorder F43.10 and Mood disorder F39 [facility] [address] [facility] [id number] [address] 2546 Mar, Chronic pain disorder G89.4 [facility] [id number] [address] 2546 Feb, Chronic pain disorder G89.4 [facility] [address] [facility] [id number] [address] 2546 Feb, [facility] [address] [facility] [id number] [address] 2546 Feb, [facility] [place] [facility] [address] [facility] [id number] [address] 2546 Feb, 2016 Trigeminal neuralgia of right side of face G50.0 [facility] [address] [facility] [id number] [address]- 8445 17 Feb, 2016 [facility] [id number] [place] [address] 26869- 9872 17 Feb, 2016 Posttraumatic stress disorder F43.10 ; Mood disorder F39 and Panic attacks F41.0 [facility] [id number] [place] [address] 05263- 5866 13 Feb, 2016 [facility] [id number] [place] [address] 43081- 2496 Feb, [facility] [id number] [place] [address] 35829- 5787 Feb, [facility] [id number] [place] [address] 69638- 2107 27 Jan, 2016 Trigeminal neuralgia of right side of face G50.0 [facility] [id number] [place] [address] 86491 2549 23 Jan, 2016 [facility] [id number] [place] [address] 39987 2542 23 Jan, 2016 [facility] [id number] [place] [address] 12410- 2543 22 Jan, 2016 Trigeminal neuralgia of right side of face G50.0 [facility] [id number] [address]- 6074 21 Jan, 2016 Trigeminal neuralgia of right side of face G50.0 [facility] [address] [facility] [id number] [address] 2544 15 Jan, 2016 [facility] [id number] [place] [address] 81982 2544 Dec, [facility] [id number] [address]- 2547 Dec, Trigeminal neuralgia of right side of face G50.0 [facility] [id number] [place] [address] 43942- 7906 Dec, [facility] [address] [address]- 2569 Nov, Posttraumatic stress disorder F43.10 ; Mood disorder F39 and Panic attacks F41.0 [facility] [id number] [place] [address] 70839 2546 Nov, Posttraumatic stress disorder F43.10 and Mood disorder F39 [facility] [id number] [place] [address] 21565- 4219 Nov, [facility] [id number] [place] [address] 23936- 5046 Nov, [facility] [id number] [place] [address] 05423- 6458 Nov, Confused R41.0 and Mood disorder F39 [facility] [id number] [place] [address] 62535- 3191 Oct, Mood disorder F39 ; Posttraumatic stress disorder F43.10 and Dementia associated with other underlying disease with behavioral disturbance F02.81 [facility] [id number] [place] [address] 96984- 0170 Oct, [facility] [id number] [place] [address] 72237- 0991 Oct, [facility] [address] [place] [address] 08529- 7226 Oct, [facility] [id number] [place] [address] 84944 2547 Oct, [facility] [address] [place] [address] 55535 2547 Oct, Posttraumatic stress disorder F43.10 and Mood disorder F39 [facility] [id number] [address] 2546 Oct, [facility] [id number] [place] [address] 45718- 1257 Oct, Establishing care with new doctor, encounter for Z71.89 [facility] [id number] [place] [address] 64834- 7212 Oct, Mood disorder F39 and Posttraumatic stress disorder F43.10 [facility] [id number] [place] [address] 13635- 9088 Oct, Establishing care with new doctor, encounter for Z71.89 and Dysthymia F34.1 [facility] [id number] [place] [address] 61850- 5093 September, Posttraumatic stress disorder F43.10 and Dementia associated with other underlying disease with behavioral disturbance F02.81 [facility] [id number] [place] [address] 85368- 8304 September, Mood disorder F39 ; Posttraumatic stress disorder F43.10 ; Generalized anxiety disorder F41.1 ; Panic attacks F41.0 and Social anxiety disorder F40.10 [facility] [id number] [place] [address] 48284- 9234 September, [facility] [id number] [place] [address] 24702 -6204 September, Acute pain of right shoulder M25.511 [facility] [id number] [place] [address] 35597- 3849 September, [facility] [id number] [place] [address] 23975- 6569 September, Posttraumatic stress disorder F43.10 and Mood disorder F39 [facility] [id number] [place] [address] 37817- 1384 Jul, [facility] [id number] [place] [address] 79639- 1356 Jul, Posttraumatic stress disorder F43.10 and Mood disorder F39 [facility] [id number] [place] [address] 40880- 8249 Jul, Mood disorder F39 and Posttraumatic stress disorder F43.10 [facility] [address] [facility] [id number] [place] [address]- 3911 Jul, Posttraumatic stress disorder F43.10 and Mood disorder F39 [facility] [address] [facility] [id number] [place] 6168 Jun, Posttraumatic stress disorder F43.10 and Mood disorder F39 IMMUNIZATIONS No Known Immunizations SOCIAL HISTORY Never Assessed REASON FOR VISIT Pt needs Est Care Appt PLAN OF CARE VITAL SIGNS MEDICATIONS Unknown [...]
--- OUTSIDE RECORDS SUMMARY | 2018-03-10 13:50 | XMS REPORT ---
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 Name Role Phone DELVIN RHODES Unavailable PROBLEMS Type Condition ICD9-CM Code XBP24-IK Code Onset Dates Condition Status SNOMED Code Problem Referred by primary care physician Z76.89 Active 3158462663361 Problem Posttraumatic stress disorder F43.10 Active 32902553 Problem Mood disorder F39 Active 44299761 Problem Other acute pulmonary embolism without acute cor pulmonale I26.99 Active 603941206 Problem Severe episode of recurrent major depressive disorder, without psychotic features F33.2 Active 39669759 Problem Trigeminal neuralgia of right side of face G50.0 Active 71502616 Problem Panic attacks F41.0 Active 413480222 Problem Personality disorder in adult F60.9 Active 77092886 Problem Chronic pain disorder G89.4 Active 511983323 ALLERGIES No Information ENCOUNTERS Encounter Location Date Diagnosis [facility] [id number] [place] [address] 21061- 4986 Feb, [facility] [id number] [place] [address] 16761- 3515 Jan, [facility] [id number] [place] [address] 56949- 5090 Feb, [facility] [id number] [place] [address] 39782- 0126 Jan, [facility] [id number] [place] [address] 80053- 6428 Jan, [facility] [id number] [place] [address] 66725- 7538 Jan, [facility] [id number] [place] [address] 58693- 4210 Jan, [facility] [place] [facility] [address] [facility] [id number] [place] [address]- 5685 Dec, [facility] [place] [facility] [address] [facility] [id number] [place] [address]- 5668 Dec, Posttraumatic stress disorder F43.10 [facility] [place] [facility] [address] [facility] [id number] [place] [address]- 8329 Dec, [facility] [place] [facility] [address] [facility] [id number], [place] [address] 0613 Dec, [facility] [place] [facility] [address] [facility] [id number] [place] [address]- 4143 Dec, [facility] [place] [facility] [address] [facility] [id number] [place] [address]- 5481 Dec, [facility] [place] [facility] [address] [id number] [place] [address]- 4053 Dec, [facility] [place] [facility] [address] [id number] [place] [address]- 0968 Dec, [facility] [place] [facility] [id number] [address]- 4309 Dec, [facility] [place] [facility] [address] [id number] [place] [address]- 3492 Dec, [facility] [place] [facility] [address] [id number] [address] 8523 Dec, Posttraumatic stress disorder F43.10 ; Severe episode of recurrent major depressive disorder, without psychotic features F33.2 and Personality disorder in adult F60.9 [facility] [place] [facility] [address] [facility] [id number] [place] [address]- 3678 Nov, [facility] [place] [facility] [address] [facility] [id number], [place] [address]- 7273 Oct, [facility] [place] [facility] [address] [id number] [address]- 3552 Oct, [facility] [place] [facility] [address] [id number] [place] [address]- 3168 Oct, [facility] [address] [facility] [id number] [place] [address]- 0859 Oct, Posttraumatic stress disorder F43.10 ; Severe episode of recurrent major depressive disorder, without psychotic features F33.2 and Personality disorder in adult F60.9 [facility] [address] [facility] [id number] [place] [address]- 1058 Oct, [facility] [address] [facility] [id number] [place] [address]- 2280 Oct, [facility] [address] [facility] [id number] [place] [address]- 0310 September, [facility] [address] [facility] [id number] [place] [address]- 6046 September, [facility] [address] [id number] [place] [address]- 7649 September, [facility] [address] [facility] [id number] [place] [address]- 0031 September, [facility] [address] [id number] [place] [address]- 6143 September, [facility] [address] [id number] [place] [address]- 5289 September, [facility] [address] [id number] [place] [address]- 1107 September, [facility] [address] [facility] [id number] [place] [address]- 5007 September, Posttraumatic stress disorder F43.10 ; Severe episode of recurrent major depressive disorder, without psychotic features F33.2 and Personality disorder in adult F60.9 [facility] [address] [facility] [id number] [place] [address]- 9316 September, [facility] [address] [id number] [place] [address]- 8635 September, [facility] [address] [id number] [place] [address]- 7290 September, Other pulmonary embolism without acute cor pulmonale, unspecified chronicity I26.99 [facility] [address] [id number] [place] [address]- 2126 September, [facility] [address] [id number] [place] [address]- 5170 September, [facility] [address] [id number] [place] [address]- 2137 September, [facility] [address] [id number] [place] [address]- 8603 September, [facility] [address] [id number] [place] [address]- 2688 September, [facility] [address] [id number] [place] [address]- 8999 Aug, [facility] [address] [id number] [place] [address]- 9468 Aug, [facility] [address] [id number] [place] [address]- 4136 Aug, [facility] [address] [id number] [place] [address]- 8765 Aug, [facility] [address] [id number] [place] [address]- 1663 Aug, [facility] [address] [id number] [place] [address]- 3707 Aug, [facility] [address] [id number] [place] [address]- 9089 Jul, [facility] [address] [id number] [place] [address]- 3454 Jul, [facility] [address] [id number] [place] [address]- 8529 Jul, [facility] [address] [id number] [id number] Jul, [facility] [address] [facility] [id number] 6583 Jul, [facility] [address] 8236 Jul, [facility] [address] [address]80 Jul, Other specified bacterial agents as the cause of diseases classified elsewhere B96.89 and Local infection of the skin and subcutaneous tissue, unspecified L08.9 [facility] [address], [place] [address]- 8956 Jul, [facility] [address] 4822 Jun, [facility] [address], [place] [address]- 4361 Jun, [facility] [address] [id number], [place] [address] -1097 Jun, [facility] [address] 3073 Jun, [facility] [address] [id number] 6510 May, [facility] [address] [id number] 3119 May, [facility] [id number] [address] 8667 May, Neurodermatitis L28.0 [facility] [id number] 4739 May, [facility] [address] [id number] 6402 May, [facility] [address], [place] [address]- 2470 May, [facility] [id number] [place] [address] 42256- 9377 May, [facility] [id number] [place] [address] 78338- 3394 May, Screening, lipid Z13.220 and High risk medication use Z79.899 [facility] [id number] [place] [address] 46418- 8505 May, [facility] [id number] [place] [address] 91233- 8944 May, [facility] [id number] [place] [address] 44747- 9889 May, [facility] [id number] [place] [address] 26143- 1637 Apr, [facility] [id number] [place] [address] 79175- 8288 Apr, [facility] [id number] [place] [address] 54285- 6868 Apr, [facility] [id number] [place] [address] 55199- 2180 Apr, [facility] [id number] [place] [address] 78109- 1970 Apr, Posttraumatic stress disorder F43.10 and Trigeminal neuralgia of right side of face G50.0 [facility] [address], [place] [address]- 8154 Apr, [facility] [id number] [place] [address] 14239- 3318 Apr, [facility] [id number] [place] [address] 08874- 2545 Apr, [facility] [id number] [place] [address] 87395- 4071 Mar, Trigeminal neuralgia of right side of face G50.0 [facility] [address] [id number], [place] [address] 2546 Mar, [facility] [address] [facility] [id number], [place] [address] 2546 Mar, Posttraumatic stress disorder F43.10 and Mood disorder F39 [facility] [address] [facility] [id number], [place] [address] 2546 Mar, [facility] [address] [facility] [id number], [place] [address] 2546 Mar, [facility] [address] [facility] [id number], [place] [address] 2546 Mar, [facility] [address] [facility] [id number] [place] [address] 53962 2546 08 Mar, 2016 [facility] [address] [facility] [id number] [place] [address] 82237 2546 Mar, [facility] [address] [facility] [id number], [place] [address] 2546 Mar, Posttraumatic stress disorder F43.10 and Mood disorder F39 [facility] [address] [facility] [id number], [place] [address] 2546 Mar, Chronic pain disorder G89.4 [facility] [address] [facility] [id number], [place] [address] 2546 Feb, Chronic pain disorder G89.4 [facility] [address] [facility] [id number], [place] [address] 2546 Feb, [facility] [address] [facility] [id number], [place] [address] 2546 Feb, [facility] [address] [facility] [id number], [place] [address] 2546 Feb, Trigeminal neuralgia of right side of face G50.0 [facility] [address] [id number], [place] [address]- 4932 17 Feb, 2016 [facility] [id number] [place] [address] 69073- 2175 17 Feb, 2016 Posttraumatic stress disorder F43.10 ; Mood disorder F39 and Panic attacks F41.0 [facility] [address] [place] [address] 26108- 7046 13 Feb, 2016 [facility] [id number] [place] [address] 24085- 9505 Feb, [facility] [id number] [place] [address] 77698- 8176 Feb, [facility] [id number] [place] [address] 16859- 9157 27 Jan, 2016 Trigeminal neuralgia of right side of face G50.0 [facility] [id number] [place] [address] 69098- 8732 Jan, [facility] [id number] [place] [address] 79760 2542 23 Jan, 2016 [facility] [id number] [place] [address] 47418- 2543 22 Jan, 2016 Trigeminal neuralgia of right side of face G50.0 [facility] [address], [place] [address] 2540 Jan, Trigeminal neuralgia of right side of face G50.0 [facility] [address], [place] [address] 2548 15 Jan, 2016 [facility] [address] [id number], [place] [address] 2546 Dec, [facility] [id number] [place] [address] 58361- 2543 Dec, Trigeminal neuralgia of right side of face G50.0 [facility] [address] [place] [address] 76095- 3900 Dec, [facility] [address] [place] [address] 91443- 5229 Nov, Posttraumatic stress disorder F43.10 ; Mood disorder F39 and Panic attacks F41.0 [facility] [id number] [place] [address] 15446- 7244 Nov, Posttraumatic stress disorder F43.10 and Mood disorder F39 [facility] [id number] [place] [address] 34516- 5154 Nov, [facility] [id number] [place] [address] 67957- 2657 Nov, [facility] [id number] [place] [address] 61911- 4394 Nov, Confused R41.0 and Mood disorder F39 [facility] [id number] [place] [address] 98920- 1991 Oct, Mood disorder F39 ; Posttraumatic stress disorder F43.10 and Dementia associated with other underlying disease with behavioral disturbance F02.81 [facility] [id number] [place] [address] 22980- 0440 Oct, [facility] [id number] [place] [address] 91331- 2407 Oct, [facility] [address] [place] [address] 46938- 7046 Oct, [facility] [id number] [place] [address] 47675- 4546 Oct, [facility] [address] [place] [address] 93907- 7178 Oct, Posttraumatic stress disorder F43.10 and Mood disorder F39 [facility] [id number] [place] [address] 32132- 0300 Oct, [facility] [id number] [place] [address] 30342- 2249 Oct, Establishing care with new doctor, encounter for Z71.89 [facility] [id number] [place] [address] 77293- 7831 Oct, Mood disorder F39 and Posttraumatic stress disorder F43.10 [facility] [id number] [place] [address] 90266- 0847 Oct, Establishing care with new doctor, encounter for Z71.89 and Dysthymia F34.1 [facility] [id number] [place] [address] 96665- 2609 September, Posttraumatic stress disorder F43.10 and Dementia associated with other underlying disease with behavioral disturbance F02.81 [place] [address] 64392- 2211 September, Mood disorder F39 ; Posttraumatic stress disorder F43.10 ; Generalized anxiety disorder F41.1 ; Panic attacks F41.0 and Social anxiety disorder F40.10 [facility] [id number] [place] [address] 80228- 2502 September, [facility] [id number] [place] [address] 68310 -5066 September, Acute pain of right shoulder M25.511 [facility] [id number] [place] [address] 81538- 6184 September, [facility] [id number] [place] [address] 88856- 3190 September, Posttraumatic stress disorder F43.10 and Mood disorder F39 [facility] [address] [place] [address] 83662- 9960 Jul, [facility] [id number] [place] [address] 70189- 6047 Jul, Posttraumatic stress disorder F43.10 and Mood disorder F39 [facility] [address] [place] [address] 15815- 5280 Jul, Mood disorder F39 and Posttraumatic stress disorder F43.10 [facility] [address] [facility] [id number] [place]- 6178 Jul, Posttraumatic stress disorder F43.10 and Mood disorder F39 [facility] [address] [facility] [id number] [place] 2554 Jun, Posttraumatic stress disorder F43.10 and Mood disorder F39 IMMUNIZATIONS No Known Immunizations SOCIAL HISTORY Never Assessed REASON FOR VISIT ER Notification/Follow up PLAN OF CARE VITAL SIGNS MEDICATIONS Unknown [...] Spider Bite Hospitalization History AMS, bilat PE, pneumonia-[facility] 07/12/16
== END 2018-03-06 19:38 | DRG 101 ==
LOC: EDUNIT# 00:02 → ER 00:03 → ICU 01:40 → UNDOADMOB 01:40 → OBSVTOIN 02:15 → INTOOBSV 02:15 → UNDOADMOB 02:15 → ICU 02:15 → 4TH 07:28 → ICU 07:28 → 4TH 11:37 → UNDODISIN 03-06 19:38
PROVIDERS: ADMIT Internal Medicine; ATTEND Internal Medicine
DX: G40.909 Epilepsy, unspecified, not intractable, without status epilepticus (principal); S02.2XXA Fracture of nasal bones, initial encounter for closed fracture; S00.212A Abrasion of left eyelid and periocular area, initial encounter; S00.81XA Abrasion of other part of head, initial encounter; R41.0 Disorientation, unspecified; F25.9 Schizoaffective disorder, unspecified; I48.0 Paroxysmal atrial fibrillation; F17.210 Nicotine dependence, cigarettes, uncomplicated; E78.00 Pure hypercholesterolemia, unspecified; G50.0 Trigeminal neuralgia; M54.9 Dorsalgia, unspecified; F41.9 Anxiety disorder, unspecified; F43.10 Post-traumatic stress disorder, unspecified; F31.9 Bipolar disorder, unspecified; F60.9 Personality disorder, unspecified; K59.00 Constipation, unspecified; R26.81 Unsteadiness on feet; R40.0 Somnolence; T42.75XA Adverse effect of unspecified antiepileptic and sedative-hypnotic drugs, initial encounter; W19.XXXA Unspecified fall, initial encounter; Y92.009 Unspecified place in unspecified non-institutional (private) residence as the place of occurrence of the external cause; Z86.711 Personal history of pulmonary embolism; Z87.820 Personal history of traumatic brain injury; Z60.2 Problems related to living alone; Z87.01 Personal history of pneumonia (recurrent)
CPT/HCPCS: 36415; 70450; 70486; 70553; 72125; 80048; 80076; 80306; 82140; 83735; 84100; 85025; 94640; 94760

== ENCOUNTER 2018-04-04 15:33 | Emergency (ER) | payer OTHER ==
[~2018-04-04] VITALS: Ht 170.2 cm; Wt 78.9 kg
[~2018-04-04 15:33] MED LIST changes: +RISP1TAB3 PO
--- NOTE | 2018-04-04 15:51 | ED Neurological Problem ---
General Stated Complaint: SEIZURES Source: patient, EMS Exam Limitations: no limitations History of Present Illness Date Seen by Provider: Apr 04, 2018 Time Seen by Provider: 15:51 Initial Comments Patient is a 52-year-old female who was brought to the emergency room by [facility] while found outside laying in a mud puddle after having a seizure. She is still post ictal reports reports that she was walking her dog illnesses last thing that she remembers and coming to in the ambulance. She has abrasions to her face and ecchymosis to her nose. She is on 3 L nasal cannula on arrival to the emergency room for oxygen saturations better in the low 90s. 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 [facility] Timing/Duration: 1/2 hour Associated Symptoms: seizures Allergies and Home Medications Allergies Coded Allergies: No Known Drug Allergies (Unverified , 06/09/14) Home Medications Amitriptyline HCl 75 Mg Tablet, 150 MG PO HS, (Reported) TAKES 2 (75 MG) TABLETS Atorvastatin Calcium 40 Mg Tablet, 20 MG PO HS, (Reported) TAKES 1/2 (40MG) TABLET Docusate Sodium 100 Mg Capsule, 100 MG PO BID PRN for CONSTIPATION-1ST LINE, ( Reported) Gabapentin 600 Mg Tablet, 1,200 MG PO TID, (Reported) LAST FILLED #180 18 TAKES 2 (600 MG) TABLETS Lamotrigine 200 Mg Tablet, 200 MG PO BID, (Reported) Risperidone 1 Mg Tablet, 1 MG PO BID, (Reported) Patient Home Medication List Home Medication List Reviewed: Yes Review of Systems Review of Systems Constitutional: no symptoms reported, see HPI Respiratory: see HPI, wheezing Musculoskeletal: see HPI, neck pain Psychiatric/Neurological: See HPI, Headache All Other Systems Reviewed Negative Unless Noted: Yes Past Mxfjxvn-Fpwrfx-Gwewvz Hx Past Med/Social Hx: Reviewed Nursing Past Med/Soc Hx Patient Social History Drug of Choice: MARIJUANA, opioids Type Used: Cigarettes Recent Hopitalizations: No Immunizations Up To Date Tetanus Booster (TDap): Less than 5yrs Seasonal Allergies Seasonal Allergies: No Past Medical History Surgeries: Yes (FACE) Section, Orthopedic, Tubal Ligation Respiratory: Yes (BILATERAL P.E. 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 0.0oz. 78.152826kb; 27.3 BMI Method:Stated General Appearance: WD/WN, no apparent distress HEENT: PERRL/EOMI, normal ENT inspection, TMs normal, pharynx normal Neck: full range of motion, supple, normal inspection, tender midline Respiratory: chest non-tender, lungs clear, normal breath sounds, no respiratory distress, no accessory muscle use, respiratory distress Cardiovascular: normal peripheral pulses, regular rate, rhythm, no edema, no gallop, no JVD, no murmur Neurologic/Psychiatric: alert, normal mood/affect, oriented x 3 Crainal Nerves: normal hearing, normal speech, PERRL Coordination/Gait: normal finger to nose, normal gait Skin: normal color, warm/dry Procedures/Interventions Suture Size: 4-0 Progress/Results/Core Measures Results/Orders My Orders Orders - NOAH ARANDA Ct Head/Face/Cervical Wo (04/04/18 15:50) Albuterol/Ipra Inhalation Soln (Duoneb I (04/04/18 16:30) Svn Small Volume Nebulizer (04/04/18 16:20) Chest 1 View, Ap/Pa Only (04/04/18 16:20) Vital Signs/I&O Progress Progress Note : Time: 16:50 Progress Note C-collar was removed at this time. She is much more alert and oriented from her previous postictal state. She reports that the last thing that she remembers was walking her dogs aching up an ambulance. Lung sounds have improved after breathing treatment. She is no longer requiring oxygen to maintain appropriate oxygen saturation above 90%. She states she does have a long history of smoking. 1730: Patient is complaining of pain medication and that the only thing that works for her is oxycodone. She has a long history of substance abuse and I informed her that she will not be receiving any pain medication at this time other than Tylenol and ibuprofen and she threatens to leave AMA. Nursing staff informed her that she would not be provided a taxi voucher if she left AGAINST MEDICAL ADVICE. She agrees to be discharged home and refuses Tylenol. Diagnostic Imaging Diagonstic Imaging: Xray Plain Films/CT/US/NM/MRI: facial bones, chest, c-spine, head Comments NAME: RENATO NEGRON [facility] REC#: [id number] PT STATUS: REG ER : 1965 PHYSICIAN: NOAH ARANDA ADMIT DATE: 04/04/18/ER Signed Date of Exam: 04/04/18 CHEST 1 VIEW, AP/PA ONLY INDICATION: Found face down and seizure. TIME OF EXAM: 04:34 p.m. COMPARISON: Comparison is made with prior chest from 01/25/2018. FINDINGS: The heart size is normal. The pulmonary vascularity is unremarkable. The lungs are clear. No infiltrate, effusion or pneumothorax is detected. IMPRESSION: No acute cardiopulmonary process is detected. Dictated by: Dictated on workstation # [id number] Dict: 04/04/181638 Trans: 04/04/181657 Interpreted by: ANTOINE KING MD Electronically signed by: ANTOINE KING MD 04/04/181657 NAME: RENATO NEGRON [facility] REC#: [id number] PHYSICIAN: NOAH ARANDA CC: NOAH ARANDA; ANTOINE KING MD Page 2 of 2 RADIOLOGY REPORT VIA [facility]. [place], [place] CC: NOAH ARANDA; ANTOINE KING MD Page 1 of 1 RADIOLOGY REPORT NAME: RENATO NEGRON [facility] REC#: [id number] PT STATUS: REG ER : 1965 PHYSICIAN: NOAH ARANDA ADMIT DATE: 04/04/18/ER Signed Date of Exam: 04/04/18 CT HEAD/FACE/CERVICAL WO PROCEDURE: CT head, face, and cervical spine without contrast. TECHNIQUE: Multiple contiguous axial images were obtained through the head, neck, and facial bones without the use of intravenous contrast. Sagittal and coronal reformations through the cervical spine and facial bones were also performed. INDICATION: Found facedown. Patient has history of seizures. COMPARISON: Prior head CT from 02/28/2018. CT HEAD: There appears to be some mild soft tissue swelling in the left posterior parietal scalp. Ventricles and sulci are within normal limits. No sulcal effacement is seen. There is no midline shift. No acute intra-axial or extra-axial hemorrhage is seen. Cisterns are patent. The visualized paranasal sinuses demonstrate a shallow air-fluid level in the right maxillary sinus. No depressed calvarial fracture is seen. IMPRESSION: Mild left posterior parietal scalp swelling. No acute intracranial process is detected. CT CERVICAL SPINE: There is some straightening of the normal cervical lordotic curvature. Minimal retrolisthesis of C5 on C6 is noted. There is significant degenerative disc disease at multiple levels, greatest at C5-6 where there is significant disc space narrowing and marginal osteophyte formation. There is multilevel facet arthropathy. No fractures are seen. Prevertebral tissues are within normal limits. IMPRESSION: Cervical spondylosis. No acute bony abnormality is detected. CT MAXILLOFACIAL: The mandible appears intact. The zygomatic arches are intact. There is a small amount of fluid in the right maxillary sinus. Maxillary sinus ortega are intact without evidence of fracture. Bilateral orbital ortega appear to be intact. There is slight buckling of the right nasal bone consistent with a fracture, however, acuity is indeterminate. Clinical correlation is recommended. No displaced nasal bone fracture is seen. No other abnormalities are detected. IMPRESSION: There is trace fluid in the right maxillary sinus. No definite facial bone fracture is seen apart from some slight buckling of the right nasal bone, acuity indeterminate. Dictated by: Dictated on workstation # [id number] Dict: 04/04/18 1622 Trans: 04/04/181657 Interpreted by: ANTOINE KING MD Electronically signed by: ANTOINE KING MD 04/04/181657 Reviewed: Reviewed by Dc Departure Impression Primary Impression: Seizure Additional Impression: Facial abrasion Disposition: HOME, SELF-CARE Condition: Stable/Unchanged Departure-Patient Inst. Decision time for Depature: 18:03 Referrals: [facility] (PCP/Family) Primary Care Physician Patient Instructions: Seizures, Adult (DC), Skin Abrasions (DC) Add. Discharge Instructions: Resume your home medications as previously prescribed. Follow-up with your primary care provider within 1 week for recheck. Return back to the emergency room for any worsening symptoms or concerns as needed. NOAH ARANDA Apr 04, 2018 15:51
--- OUTSIDE RECORDS SUMMARY | 2018-04-04 16:25 | XMS REPORT | Clinical Summary ---
Author Author [facility] Organization [facility] Address Unknown Phone Unavailable Care Team Providers Care Adult Education Instructor Name Role Phone RamonMarla hawkins CULINARY ART TEACHER PCP Source Comments Some departments are not documenting in the electronic medical record. 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 Respiratory Rate - - Oxygen Saturation 100% 03/04/2017 3:44 PM CDT Inhaled Oxygen - - Concentration Weight 83.2 kg (183 lb 6.4 oz) 03/04/2017 3:44 PM CDT Height 170.2 cm (5' 7.01") 03/04/2017 3:44 PM CDT Body Mass Index 28.72 03/04/2017 3:44 PM CDT Plan of Treatment Health Maintenance Due Date Last Done Comments HEPATITIS C SCREENING 1965 PHYSICAL (COMPREHENSIVE) 08/24/1970 EXAM HIV SCREENING 08/24/1978 DTAP/TDAP VACCINES (1 - 08/24/1981 Tdap) CERVICAL CANCER SCREENING 08/24/1993 BREAST CANCER SCREENING 2003 COLORECTAL CANCER 08/24/2013 SCREENING SHINGLES RECOMBINANT 08/24/2013 VACCINE (1 of 2) INFLUENZA VACCINE 12/03/2017 Results Not on filefrom Last 3 Months
[2018-04-04] MEDS ORDERED: RT-ALBUTEROL/IPRATROPIUM 3 ML (DUONEB) VIAL INH ONE (16:30)
--- NOTE | 2018-04-04 16:41 | Diagnostic Imaging Report ---
INDICATION: Found face down and seizure. TIME OF EXAM: 04:34 p.m. COMPARISON: Comparison is made with prior chest from 01/25/2018. FINDINGS: The heart size is normal. The pulmonary vascularity is unremarkable. The lungs are clear. No infiltrate, effusion or pneumothorax is detected. IMPRESSION: No acute cardiopulmonary process is detected. Dictated by: Dictated on workstation # [id number]
--- NOTE | 2018-04-04 16:41 | Diagnostic Imaging Report ---
PROCEDURE: CT head, face, and cervical spine without contrast. TECHNIQUE: Multiple contiguous axial images were obtained through the head, neck, and facial bones without the use of intravenous contrast. Sagittal and coronal reformations through the cervical spine and facial bones were also performed. INDICATION: Found facedown. Patient has history of seizures. COMPARISON: Prior head CT from 02/28/2018. CT HEAD: There appears to be some mild soft tissue swelling in the left posterior parietal scalp. Ventricles and sulci are within normal limits. No sulcal effacement is seen. There is no midline shift. No acute intra-axial or extra-axial hemorrhage is seen. Cisterns are patent. The visualized paranasal sinuses demonstrate a shallow air-fluid level in the right maxillary sinus. No depressed calvarial fracture is seen. IMPRESSION: Mild left posterior parietal scalp swelling. No acute intracranial process is detected. CT CERVICAL SPINE: There is some straightening of the normal cervical lordotic curvature. Minimal retrolisthesis of C5 on C6 is noted. There is significant degenerative disc disease at multiple levels, greatest at C5-6 where there is significant disc space narrowing and marginal osteophyte formation. There is multilevel facet arthropathy. No fractures are seen. Prevertebral tissues are within normal limits. IMPRESSION: Cervical spondylosis. No acute bony abnormality is detected. CT MAXILLOFACIAL: The mandible appears intact. The zygomatic arches are intact. There is a small amount of fluid in the right maxillary sinus. Maxillary sinus ortega are intact without evidence of fracture. Bilateral orbital ortega appear to be intact. There is slight buckling of the right nasal bone consistent with a fracture, however, acuity is indeterminate. Clinical correlation is recommended. No displaced nasal bone fracture is seen. No other abnormalities are detected. IMPRESSION: There is trace fluid in the right maxillary sinus. No definite facial bone fracture is seen apart from some slight buckling of the right nasal bone, acuity indeterminate. Dictated by: Dictated on workstation # [id number]
[2018-04-04 18:18] VITALS: BP 142/88
== END 2018-04-04 18:20 | disposition home or self-care (01) ==
LOC: EDUNIT# 15:33 → ER 15:34
DX: S00.81XA Abrasion of other part of head, initial encounter (principal); G40.909 Epilepsy, unspecified, not intractable, without status epilepticus; E78.00 Pure hypercholesterolemia, unspecified; F41.9 Anxiety disorder, unspecified; F43.10 Post-traumatic stress disorder, unspecified; F31.9 Bipolar disorder, unspecified; F20.9 Schizophrenia, unspecified; Z87.820 Personal history of traumatic brain injury; Z98.890 Other specified postprocedural states; Z98.51 Tubal ligation status; Z87.01 Personal history of pneumonia (recurrent); Z86.711 Personal history of pulmonary embolism; X58.XXXA Exposure to other specified factors, initial encounter
CPT/HCPCS: 70450; 70486; 71045; 72125; 94640

== ENCOUNTER 2018-05-11 18:02 | Inpatient (IN) | payer MEDICARE, OTHER ==
[~2018-05-11] VITALS: Ht 172.7 cm; Wt 81.7 kg
--- OUTSIDE RECORDS SUMMARY | 2018-05-11 18:22 | XMS REPORT ---
Author Author MARGARITA DOUGLASS [facility] Address [address] [place] [address] Care Team Providers Care Car Body Inspector Name Role Phone MARGARITA DOUGLASS Unavailable PROBLEMS Type Condition ICD9-CM Code EBL32-OM Code Onset Dates Condition Status SNOMED Code Problem Referred by primary care physician Z76.89 Active 5670993539868 Problem Posttraumatic stress disorder F43.10 Active 48703417 Problem Mood disorder F39 Active 54364807 Problem Other acute pulmonary embolism without acute cor pulmonale I26.99 Active 740225946 Problem Severe episode of recurrent major depressive disorder, without psychotic features F33.2 Active 45458994 Problem Trigeminal neuralgia of right side of face G50.0 Active 94686604 Problem Panic attacks F41.0 Active 239560300 Problem Personality disorder in adult F60.9 Active 45006142 Problem Chronic pain disorder G89.4 Active 646815316 ALLERGIES No Known Allergies ENCOUNTERS Encounter Location Date Diagnosis [place] [id number] [place] [address] 78528- 7389 Apr, Pneumonia due to infectious organism, unspecified laterality , unspecified part of lung J18.9 [facility] [id number] [place] [address] 94433- 0791 Feb, [facility] [id number] [place] [address] 97603- 9383 Jan, [facility] [id number] [place] [address] 56116- 1725 Feb, [facility] [id number] [place] [address] 77404- 4131 Jan, [facility] [id number] [place] [address] 79291- 7508 Jan, [place] [address] [facility] [id number] [place] [address]- 3640 Jan, [facility] [place] [facility] [address] [facility] [id number] [place] [address]- 9708 Jan, [facility] [place] [facility] [address] [facility] [id number] [place] [address]- 2688 Dec, [facility] [place] [facility] [address] [facility] [id number] [place] [address]- 7124 Dec, Posttraumatic stress disorder F43.10 [facility] [place] [facility] [address] [facility] [id number] [place] [address]- 4906 Dec, [facility] [place] [facility] [address] [facility] [id number] [place] [address]- 4950 Dec, [facility] [place] [facility] [address] [id number] [place] [address] 2972 Dec, [facility] [place] [facility] [address] [id number] [place] [address]- 7144 Dec, [facility] [place] [facility] [address] [facility] [id number] [place] [address]- 0191 Dec, [facility] [place] [facility] [address] [id number] [place] [address]- 2428 Dec, [facility] [place] [facility] [id number] [address]- 7965 Dec, [facility] [place] [facility] [id number] [address]- 7436 Dec, [facility] [place] [facility] [address] [facility] [id number] [place] [address]- 3630 Dec, Posttraumatic stress disorder F43.10 ; Severe episode of recurrent major depressive disorder, without psychotic features F33.2 and Personality disorder in adult F60.9 [facility] [place] [facility] [address] [id number] [place] [address]- 5648 Nov, [facility] [place] [facility] [id number] [address]- 4196 Oct, [facility] [address] [facility] [id number] [address] 8114 Oct, [facility] [address] [facility] [id number] [address]- 0378 Oct, [facility] [id number] [address]- 8410 Oct, Posttraumatic stress disorder F43.10 ; Severe episode of recurrent major depressive disorder, without psychotic features F33.2 and Personality disorder in adult F60.9 [facility] [address] [facility] [id number] [address]- 3518 Oct, [facility] [address] [facility] [id number] [address]- 8225 Oct, [facility] [address] [address]- 5016 September, [facility] [address] [id number] [address]- 0476 September, [facility] [address] [id number] [address]- 8386 September, [facility] [address] [id number] [address]- 0734 September, [facility] [address] [id number] [address]- 2812 September, [facility] [address] [facility] [id number] [address]- 7447 September, [facility] [address] [facility] [id number] [address]- 3917 September, [facility] [address] [facility] [id number] [address]- 8505 September, Posttraumatic stress disorder F43.10 ; Severe episode of recurrent major depressive disorder, without psychotic features F33.2 and Personality disorder in adult F60.9 [facility] [address] [id number] [place] [address]- 1989 September, [facility] [address] [id number] [place] [address]- 9997 September, [facility] [address] [id number] [place] [address]- 1927 September, Other pulmonary embolism without acute cor pulmonale, unspecified chronicity I26.99 [facility] [address] [id number] [place] [address]- 8956 September, [facility] [address] [id number] [place] [address]- 4419 September, [facility] [address] [id number] [place] [address]- 8599 September, [facility] [address] [id number] [place] [address]- 5728 September, [facility] [address] [id number] [place] [address]- 4600 September, [facility] [address] [id number] [place] [address]- 9602 Aug, [facility] [address] [id number] [place] [address]- 4020 Aug, [facility] [address] [id number] [place] [address]- 1080 Aug, [facility] [place] [facility] [address] [id number] [place] [address]- 6922 Aug, [facility] [place] [facility] [address] [id number] [place] [address]- 3443 Aug, [facility] [place] [facility] [address] [id number] [place] [address]- 4651 Aug, [facility] [place] [facility] [address] [facility] [id number] [place] [address]- 0406 Jul, [facility] [place] [facility] [address] [address]- 9413 Jul, [facility] [address] [address]- 7220 Jul, [facility] [id number] [address] Jul, [facility] [id number] [address]- 4859 Jul, [facility] [id number] [address]- 4475 Jul, [facility] [id number] [place] [address] 43546 -3557 Jul, Other specified bacterial agents as the cause of diseases classified elsewhere B96.89 and Local infection of the skin and subcutaneous tissue, unspecified L08.9 [facility] [id number] [place] [address] 22218- 1221 Jul, [facility] [address] [address]- 2152 Jun, [facility] [address] [address]- 4387 Jun, [facility] [id number] [address]3232 Jun, [facility] [id number] [address]- 0709 Jun, [facility] [address] [address]- 2191 May, [facility] [id number] [address] 5160 May, [facility] [address] [address]- 3006 May, Neurodermatitis L28.0 [facility] [id number] [address]- 5873 May, [facility] [id number] [place] [address] 73518- 4594 May, [facility] [id number] [place] [address] 57875- 0816 May, [facility] [id number] [place] [address] 97298- 0354 May, [facility] [id number] [place] [address] 22299- 3699 May, Screening, lipid Z13.220 and High risk medication use Z79.899 [facility] [id number] [place] [address] 25025- 8752 May, [facility] [id number] [place] [address] 27957- 5735 May, [facility] [id number] [place] [address] 76588- 0964 May, [facility] [id number] [place] [address] 86519- 3993 Apr, [facility] [id number] [place] [address] 98718- 9997 Apr, [facility] [address] [address]- 2566 Apr, [facility] [id number] [place] [address] 95832- 0116 Apr, [facility] [address] [address]- 4198 14 Apr, 2016 Posttraumatic stress disorder F43.10 and Trigeminal neuralgia of right side of face G50.0 [facility] [address] [address]- 6681 Apr, [facility] [id number] [place] [address] 59117- 3900 Apr, [facility] [address] [address]- 8973 Apr, [facility] [id number] [place] [address] 20870- 1466 Mar, Trigeminal neuralgia of right side of face G50.0 [facility] [address] [address]- 4216 Mar, [facility] [id number] [place] [address] 50722- 9775 Mar, Posttraumatic stress disorder F43.10 and Mood disorder F39 [facility] [id number] [place] [address] 79536- 0316 Mar, [facility] [id number] [place] [address] 37278- 8266 Mar, [facility] [id number] [place] [address] 20070- 6586 Mar, [facility] [id number] [place] [address] 92205- 0456 Mar, [facility] [id number] [place] [address] 87215- 7166 Mar, [facility] [address] [address]- 1360 Mar, Posttraumatic stress disorder F43.10 and Mood disorder F39 [facility] [address] [address]- 7591 Mar, Chronic pain disorder G89.4 [facility] [id number] [place] [address] 79793 2546 Feb, Chronic pain disorder G89.4 [facility] [id number] [address] 2546 Feb, [facility] [address] [address]- 2377 Feb, [facility] [address] [id number] [address]- 9653 Feb, Trigeminal neuralgia of right side of face G50.0 [facility] [address] [facility] [id number] [address]- 1456 Feb, [facility] [address] [facility] [id number] [address]- 4006 Feb, Posttraumatic stress disorder F43.10 ; Mood disorder F39 and Panic attacks F41.0 [facility] [address] [id number] [address]- 3581 Feb, [facility] [address] [facility] [id number] [place] [address] 57979- 3706 Feb, [facility] [address] [facility] [id number] [address]- 2294 Feb, [facility] [address] [facility] [id number] [place] [address] 83472- 1806 27 Jan, 2016 Trigeminal neuralgia of right side of face G50.0 [facility] [address] [facility] [id number] [address]- 0986 Jan, [facility] [address] [facility] [id number] [address]- 4209 Jan, [facility] [address] [facility] [id number] [address]- 5661 22 Jan, 2016 Trigeminal neuralgia of right side of face G50.0 [facility] [address] [facility] [id number] [address]- 3972 Jan, Trigeminal neuralgia of right side of face G50.0 [facility] [address] [facility] [id number] [address]- 6556 15 Jan, 2016 [facility] [address] [facility] [id number] [address]- 8250 Dec, [facility] [address] [facility] [id number] [place] [address] 69012- 1950 Dec, Trigeminal neuralgia of right side of face G50.0 [facility] [id number] [place] [address] 40661 2546 Dec, [facility] [id number] [place] [address] 51493 2546 Nov, Posttraumatic stress disorder F43.10 ; Mood disorder F39 and Panic attacks F41.0 [facility] [id number] [place] [address] 56037 2546 Nov, Posttraumatic stress disorder F43.10 and Mood disorder F39 [facility] [id number] [place] [address] 39508- 2926 Nov, [facility] [id number] [place] [address] 99685- 2036 Nov, [facility] [id number] [place] [address] 24817- 3060 Nov, Confused R41.0 and Mood disorder F39 [facility] [id number] [place] [address] 11602- 4301 Oct, Mood disorder F39 ; Posttraumatic stress disorder F43.10 and Dementia associated with other underlying disease with behavioral disturbance F02.81 [facility] [address] [address]- 0556 Oct, [facility] [address] [address] 2546 Oct, [facility] [id number] [place] [address] 55451 2541 Oct, [facility] [id number] [place] [address] 96792 2546 Oct, [facility] [id number] [address] 2543 Oct, Posttraumatic stress disorder F43.10 and Mood disorder F39 [facility] [address] [id number] [address]- 0532 Oct, [facility] [id number] [place] [address] 12677- 7540 Oct, Establishing care with new doctor, encounter for Z71.89 [facility] [id number] [place] [address] 21226- 9434 Oct, Mood disorder F39 and Posttraumatic stress disorder F43.10 [facility] [id number] [place] [address] 78113- 2919 Oct, Establishing care with new doctor, encounter for Z71.89 and Dysthymia F34.1 [place] [id number] [place] [address] 67907- 2491 September, Posttraumatic stress disorder F43.10 and Dementia associated with other underlying disease with behavioral disturbance F02.81 [place] [id number] [place] [address] 87076- 8914 September, Mood disorder F39 ; Posttraumatic stress disorder F43.10 ; Generalized anxiety disorder F41.1 ; Panic attacks F41.0 and Social anxiety disorder F40.10 [place] [id number] [place] [address] 25993- 4408 September, [facility] [id number] [place] [address] 15070 -4909 September, Acute pain of right shoulder M25.511 [facility] [id number] [place] [address] 66372- 8407 September, [facility] [id number] [place] [address] 89370- 9729 September, Posttraumatic stress disorder F43.10 and Mood disorder F39 [facility] [id number] [place] [address] 21839- 9895 Jul, [facility] [id number] [place] [address] 95850- 7037 Jul, Posttraumatic stress disorder F43.10 and Mood disorder F39 [facility] [address] [facility] [id number] [address]- 9016 Jul, Mood disorder F39 and Posttraumatic stress disorder F43.10 [facility] [address] [facility] [id number] [address]- 7105 Jul, Posttraumatic stress disorder F43.10 and Mood disorder F39 [place] [address] [facility] [id number] [address]- 9922 Jun, Posttraumatic stress disorder F43.10 and Mood disorder F39 IMMUNIZATIONS No Known Immunizations SOCIAL HISTORY Never Assessed REASON FOR VISIT Cough, congestion x 1 week K Wilfredo HAYNES PLAN OF CARE Activity Details Follow Up if not improving or with pcp for regular fu Reason: Future/Pending Procedure NEBULIZER TREATMENT VITAL SIGNS Height 68 in 2018-04-10 Weight 175.4 lbs 2018-04-10 Temperature 97.0 degrees Fahrenheit 2018-04-10 Heart Rate 72 bpm 2018-04-10 Respiratory Rate 17 2018-04-10 Oximetry 93 % 2018-04-10 BMI 26.67 kg/m2 2018-04-10 Blood pressure systolic 120 mmHg 2018-04-10 Blood pressure diastolic 64 mmHg 2018-04-10 MEDICATIONS Medication Instructions Dosage Frequency Start Date End Date Duration Status ProAir HFA 108 (90 Base) MCG/ACT Inhalation every 6 hrs 2 puffs as needed 6h Apr, 30 days Active tylenol 500 mg Oral 3 times a day 1 tab 8h Active PredniSONE 20 mg Orally Once a day 2 tablet 24h Apr, 5 days Active BusPIRone HCl 10 mg Orally 3 times a day 1 tablet as needed 8h Mar, 30 days Active Lamotrigine 25 MG Orally Twice a day 3 tablets 12h 30 days Active Carbamazepine 200 MG Orally 3 times a day 1 tablet 8h 30 days Active Gabapentin 800 MG Orally 3 times a day 1 tablet 8h 30 days Active Doxycycline Hyclate 100 mg Orally twice a day 1 tablet 12h Apr, 10 day(s) Active Amitriptyline HCl 150 MG Orally Once a day 1 tablet 24h 25 Nov, 2015 30 days Active Trintellix 5 mg Orally Once a day 1 tablet 24h 13 Oct, 2016 30 days Active RESULTS Name Result Date Reference Range Xray : Chest 2 View (IN HOUSE) 2018-04-10 PROCEDURES Procedure Date Ordered Result Body Site NEB/MDI RX INITIAL Apr 10, 2018 X-RAY EXAM CHEST 2 VIEWS Apr 10, 2018 INSTRUCTIONS MEDICATIONS ADMINISTERED No Known Medications MEDICAL [...]
--- OUTSIDE RECORDS SUMMARY | 2018-05-11 18:22 | XMS REPORT | Clinical Summary ---
Author Author [facility] Organization [facility] Address Unknown Phone Unavailable Care Team Providers Care Accounting Support Specialist Name Role Phone RamonMarla hawkins WIND COMMISSIONING TECHNICIAN PCP Source Comments Some departments are not documenting in the electronic medical record. If you do not see the information that you expected, contact Release of Information in the Health Information Management department at [phone] for further assistance in locating additional records.[facility] Allergies No Known Allergies Medications End Date Status Medication Sig Dispensed Refills Start Date Active gabapentin (NEURONTIN) Take 1,600 mg 0 300 mg capsule by mouth three times daily. Active TOPIRAMATE (TOPAMAX PO) Take 100 mg 0 by mouth twice daily. Active amitriptyline (ELAVIL) Take 150 mg 0 150 mg tablet by mouth at bedtime daily. Active baclofen (LIORESAL) 10 mg Take 10 mg by 0 tablet mouth three times daily. Active ACETAMINOPHEN (TYLENOL 8 Take 500 mg 0 HOUR PO) by mouth three times daily. Active carBAMazepine (TEGRETOL) Take 200 mg 0 200 mg tabletIndications: by mouth Patient taking twice three times daily daily. Indications: Patient taking twice daily Active lamoTRIgine (LAMICTAL) 25 Take 100 mg 0 mg tablet by mouth twice daily. Active Problems No known active problems Family History Medical History Relation Name Comments Cancer Father Colon Relation Name Status Comments Father Social History Date Tobacco Use Types Packs/Day Years Used Current Every Day Smoker Cigarettes 1 25 Alcohol Use Drinks/Week oz/Week Comments No 0 Standard 0.0 drinks or equivalent Sex Assigned at Date Recorded Not on file Industry Job Start Date Occupation Not on file Not on file Not on file Travel End Travel History Travel Start No recent travel history available. 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 Temperature 36.8 C (98.2 F) - Respiratory Rate - 03/04/2017 3:44 PM CDT Oxygen Saturation 100% - Inhaled Oxygen - Concentration 03/04/2017 3:44 PM CDT Weight 83.2 kg (183 lb 6.4 oz) 03/04/2017 3:44 PM CDT Height 170.2 cm (5' 7.01") 03/04/2017 3:44 PM CDT Body Mass Index 28.72 Plan of Treatment Health Maintenance Due Date Last Done Comments HEPATITIS C SCREENING 1963 PHYSICAL (COMPREHENSIVE) 08/24/1970 EXAM HIV SCREENING 08/24/1978 DTAP/TDAP VACCINES (1 - 08/24/1981 Tdap) CERVICAL CANCER SCREENING 08/24/1993 BREAST CANCER SCREENING 2003 COLORECTAL CANCER 08/24/2013 SCREENING SHINGLES RECOMBINANT 08/24/2013 VACCINE (1 of 2) INFLUENZA VACCINE 12/03/2017 Results Not on filefrom Last 3 Months Advance Directives Patient has advance care planning documents on file. For more information, please contact: [facility] [address] [place] [address]
[2018-05-11] MEDS ORDERED: NS 100 ML (IVPB) BAG IV ONE (18:30)
[2018-05-11] MEDS ORDERED: IOHEXOL 350 MG/ML 100 ML (OMNIPAQUE 350) VIAL IV ONE (18:30)
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
[2018-05-11 18:37] LABS: BASOPHILS % (AUTO) 0 % (0-10); EOSINOPHILS % (AUTO) 0 % (0-10); HEMATOCRIT 41 % (35-52); HEMOGLOBIN 13.7 G/DL (11.5-16.0); LYMPHOCYTES % (AUTO) 19 % (12-44); MEAN CORPUSCULAR HEMOGLOBIN 31 PG (25-34); MEAN CORPUSCULAR HGB CONC 33 G/DL (32-36); MEAN CORPUSCULAR VOLUME 93 FL (80-99); MEAN PLATELET VOLUME 10.1 FL (7.4-10.4); MONOCYTES # (AUTO) 0.8 X 10^3 (0.0-1.0); MONOCYTES % (AUTO) 8 % (0-12); NEUTROPHILS # (AUTO) 7.4 X 10^3 (1.8-7.8); NEUTROPHILS % (AUTO) 72 % (42-75); PLATELET COUNT 384 10^3/uL (130-400); RED BLOOD COUNT 4.46 10^6/uL (4.35-5.85); RED CELL DISTRIBUTION WIDTH 13.7 % (10.0-14.5); WHITE BLOOD COUNT 10.3 10^3/uL (4.3-11.0)
[2018-05-11] MEDS ORDERED: LACTATED RINGERS 1,000 ML IV ONE (18:38)
[2018-05-11 18:44] LABS: PROTHROMBIN TIME PATIENT 13.5 SEC (12.2-14.7)
[2018-05-11] MEDS ORDERED: ONDANSETRON 4 MG/2 ML (SDV) Z0FRAN IVP ONE (18:45)
[2018-05-11 18:55] LABS: BILIRUBIN,URINE NEGATIVE (NEGATIVE); CLARITY,URINE CLEAR; COLOR,URINE YELLOW; GLUCOSE, URINE (UA) NEGATIVE (NEGATIVE); KETONES,URINE 2+ (NEGATIVE); LEUKOCYTE ESTERASE ,URINE NEGATIVE (NEGATIVE); NITRITE,URINE NEGATIVE (NEGATIVE); PH,URINE 7 (5-9); PROTEIN,URINE NEGATIVE (NEGATIVE); UROBILINOGEN,URINE 1 MG/DL (NORMAL)
--- NOTE | 2018-05-11 18:59 | Diagnostic Imaging Report ---
PATIENT HISTORY: Pain at the right chest wall. TECHNIQUE: 2 views of the chest COMPARISON: 04/04/2018 FINDINGS: There are nondisplaced fractures of the lateral right ninth and 10th ribs. Increased airspace opacity seen at the right lung base. There is no pneumothorax or significant pleural effusion. The cardiac silhouette is normal in size. IMPRESSION: Nondisplaced fractures of the lateral right ninth and 10th ribs. Airspace opacity at the right lung base may represent atelectasis or contusion. No pneumothorax is seen. Dictated by: Dictated on workstation # [id number]
[2018-05-11 19:03] LABS: AMORPHOUS SEDIMENT,UR MOD AMOR PHOSPHATE /LPF; BACTERIA,URINE NEGATIVE /HPF; RBC,URINE 0-2 /HPF; WBC,URINE RARE /HPF
[2018-05-11 19:08] LABS: AMPHETAMINE SCREEN, URINE NEGATIVE (NEGATIVE); BARBITURATE SCREEN URINE NEGATIVE (NEGATIVE); BENZODIAZEPINES SCREEN URINE NEGATIVE (NEGATIVE); CANNABINOID SCREEN, URINE NEGATIVE (NEGATIVE); COCAINE SCREEN URINE NEGATIVE (NEGATIVE); METHADONE STAT NEGATIVE (NEGATIVE); METHAMPHETAMINE SCREEN URINE S NEGATIVE (NEGATIVE); OPIATE SCREEN URINE NEGATIVE (NEGATIVE); OXYCODONE STAT NEGATIVE (NEGATIVE); PROPOXYPHENE STAT NEGATIVE (NEGATIVE); TRICYCLIC ANTIDEPRESSANTS SCRE POSITIVE (NEGATIVE)
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
--- NOTE | 2018-05-11 19:49 | Diagnostic Imaging Report ---
PROCEDURE: CT chest, abdomen, and pelvis with contrast. TECHNIQUE: Multiple contiguous axial images were obtained through the chest, abdomen, and pelvis after the administration of intravenous contrast. INDICATION: Altered mental status, right chest pain, multiple injuries COMPARISON: CT from 01/25/2018 FINDINGS: CT chest: The heart is normal in size. There is a minimal pericardial effusion. There are mediastinal lymph nodes which do not appear enlarged by CT size criteria. No traumatic aortic injury is seen. There is no axillary lymphadenopathy. There is minimal right apical pleural scarring. There is a trace right pleural effusion, with mild atelectasis. There is no left pleural effusion. There are scattered numerous nodular groundglass opacities throughout the left lung, which have a somewhat tree-in-bud appearance. There is a fracture of the anterior right fourth rib, the anterior right fifth rib, the posterior right ninth rib. There are old healed right rib fractures. There are also multiple fractures of left ribs, in various stages of healing. CT abdomen/pelvis: The liver appears normal. The spleen is normal. The adrenal glands are normal. The kidneys appear normal. The pancreas is normal. There is [id number] stool in the ascending, transverse, and descending colon. The sigmoid colon appears redundant. The appendix is normal. There is mild atherosclerosis of the aorta without dissection or aneurysm. No lymphadenopathy is seen. There is no evidence of bowel obstruction. No significant free fluid or free air is seen. There are mild degenerative changes in lumbar spine. There are minimally displaced fractures of the right transverse processes at L2 and L3. IMPRESSION: 1. Multiple right-sided rib fractures as described above. There are additional bilateral rib fractures in different stages of healing. 2. Mildly displaced fractures of the right transverse processes at L2 and L3. 3. Small right pleural effusion. Minimal pericardial effusion. 4. Numerous small tree-in-bud type opacities in the left lung, which are nonspecific, but commonly seen with infectious bronchiolitis. Dictated by: Dictated on workstation # [id number]
[2018-05-11 19:54] LABS: ALANINE AMINOTRANSFERASE 16 U/L (0-55); ALBUMIN 3.6 GM/DL (3.2-4.5); ALKALINE PHOSPHATASE 88 U/L (40-136); AMMONIA 18 UMOL/L (11-32); BILIRUBIN,TOTAL 0.4 MG/DL (0.1-1.0); BUN/CREATININE RATIO 13; CALCIUM 8.9 MG/DL (8.5-10.1); CARBON DIOXIDE 25 MMOL/L (21-32); CHLORIDE 99 MMOL/L (98-107); GFR ESTIMATED > 60; GLUCOSE 79 MG/DL (70-105); MAGNESIUM 1.6 MG/DL (1.8-2.4); POTASSIUM 3.5 MMOL/L (3.6-5.0); SODIUM 134 MMOL/L (135-145); TOTAL PROTEIN 6.7 GM/DL (6.4-8.2)
[2018-05-11 20:14] LABS: TSH (THYROID ANALYZER) 0.62 UIU/ML (0.35-4.94)
[2018-05-11 20:17] LABS: ACETAMINOPHEN < 10 UG/ML (10-30)
[2018-05-11] MEDS ORDERED: KETOROLAC 30 MG/ML VIAL IVP ONE (20:30)
[2018-05-11] MEDS ORDERED: MAGNESIUM 1 GM/100 ML IVPB 100 ML IV ONE (20:45)
--- OUTSIDE RECORDS SUMMARY | 2018-05-11 21:52 | XMS REPORT | Clinical Summary ---
Author Author [facility] Organization [facility] Address Unknown Phone Unavailable Care Team Providers Care Director Of Scout Work Name Role Phone RamonMarla hawkins HOG RAISER PCP Source Comments Some departments are not documenting in the electronic medical record. 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 For more information, please contact: [facility] [address] [place] [address]
[2018-05-11 22:20] VITALS: BP 157/77
--- NOTE | 2018-05-11 22:20 | NUR ---
RENATO NEGRON admitted to room 423-1, with an admitting diagnosis of ALTERED MENTAL STATUS, MULTIPLE RIB FRACTURES & TRANSVERSE PROCESS L1/L3, HX OF SEIZURES, HX OF PSYCHOSIS, HX OF POLYSUBSTANCE ABUSE, on 05/11/18 from ED via CART, accompanied by STAFF.RENATO NEGRON introduced to surroundings, call light, bed controls, phone, TV, temperature control, lights, meal times, smoking policy, visitor policy, side rail policy, bathrooms and showers. Patient Rights given to patient in the handbook. RENATO NEGRON verbalizes understanding that [facility] is not responsible for the loss or damage to any personal effects or valuables that are kept in the patients posession during their hospitalization. THE PATIENT'S PLAN OF CARE WAS DISCUSSED WITH THE PT, SHE VERBALIZED UNDERSTANDING, REINFORCEMENT WILL BE NEEDED. RENATO NEGRON verbalizes understanding of Interdisciplinary Patient Education.
[2018-05-11] MEDS ORDERED: ONDANSETRON 4 MG/2 ML (SDV) Z0FRAN IV PRN (23:00)
[2018-05-11] MEDS ORDERED: LORazepam INJ 2 MG/ML (ATIVAN) VIAL IV PRN (23:00)
[2018-05-11 23:20] VITALS: BP 148/89
[2018-05-11] MEDS: D5 1/2 NS W/KCL 20 MEQ/L 1,000 ML IV SCH (23:27)
[2018-05-11] MEDS: ACETAMINOPHEN 500 MG TAB (TYLENOL) PO PRN (23:27)
[2018-05-12] VITALS (12 sets, daily range): BP systolic 116–155; BP diastolic 65–91
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
[2018-05-12 06:30] LABS: BASOPHILS % (AUTO) 0 % (0-10); EOSINOPHILS # (AUTO) 0.1 10^3/uL (0.0-0.3); EOSINOPHILS % (AUTO) 2 % (0-10); HEMATOCRIT 39 % (35-52); HEMOGLOBIN 12.8 G/DL (11.5-16.0); LYMPHOCYTES # (AUTO) 1.8 X 10^3 (1.0-4.0); LYMPHOCYTES % (AUTO) 27 % (12-44); MEAN CORPUSCULAR HEMOGLOBIN 31 PG (25-34); MEAN CORPUSCULAR HGB CONC 33 G/DL (32-36); MEAN CORPUSCULAR VOLUME 95 FL (80-99); MEAN PLATELET VOLUME 9.1 FL (7.4-10.4); MONOCYTES # (AUTO) 0.8 X 10^3 (0.0-1.0); MONOCYTES % (AUTO) 11 % (0-12); NEUTROPHILS # (AUTO) 3.9 X 10^3 (1.8-7.8); NEUTROPHILS % (AUTO) 59 % (42-75); PLATELET COUNT 364 10^3/uL (130-400); RED BLOOD COUNT 4.16 10^6/uL (4.35-5.85); RED CELL DISTRIBUTION WIDTH 13.8 % (10.0-14.5); WHITE BLOOD COUNT 6.6 10^3/uL (4.3-11.0)
[2018-05-12] MEDS: D5 1/2 NS W/KCL 20 MEQ/L 1,000 ML IV SCH ×2 (06:33→11:53)
[2018-05-12 07:01] LABS: ALANINE AMINOTRANSFERASE 17 U/L (0-55); ALBUMIN 3.4 GM/DL (3.2-4.5); ALKALINE PHOSPHATASE 77 U/L (40-136); BILIRUBIN,TOTAL 0.3 MG/DL (0.1-1.0); BUN/CREATININE RATIO 11; CALCIUM 8.5 MG/DL (8.5-10.1); CARBON DIOXIDE 26 MMOL/L (21-32); CHLORIDE 105 MMOL/L (98-107); CREATININE SERUM 0.75 MG/DL (0.60-1.30); GFR ESTIMATED > 60; GLUCOSE 123 MG/DL (70-105); POTASSIUM 3.9 MMOL/L (3.6-5.0); SODIUM 140 MMOL/L (135-145); TOTAL PROTEIN 5.8 GM/DL (6.4-8.2)
[2018-05-12] MEDS ORDERED: FLU QUADRIvalent (5+ YOA) 2018-2019 (AFLURIA) 0.5 ML IM ONE (08:00)
--- NOTE | 2018-05-12 09:07 | Consultation ---
History of Present Illness History of Present Illness Patient Consulted On(handy/time) 05/12/18 09:00 Date Seen by Provider: May 12, 2018 Time Seen by Provider: 08:45 Reason for Visit: multiple falls associated with mental status changes History of Present Illness This patient has a history of spontaneous falls at her usual place of residence and has seizure disorder. There is documentation of several ER visits and hospitalizations, with reference to polysubstance abuse and altered mental status. Last night, she called EMS but could not remember it.eventually, she was evaluated in the emergency room and has been found to have a displaced fractures of the right ninth and 10th ribs with evidence of previous fractures involving the anterior ribs on the right side. In addition, fractures of transverse processes of lumbar vertebra on the right side have been found as well. I have been asked to see her to evaluate from a trauma perspective. Allergies and Home Medications Allergies Coded Allergies: No Known Drug Allergies (Unverified , 06/09/14) Home Medications Amitriptyline HCl 75 Mg Tablet, 150 MG PO HS, (Reported) TAKES 2 (75 MG) TABLETS Atorvastatin Calcium 40 Mg Tablet, 20 MG PO HS, (Reported) TAKES 1/2 (40MG) TABLET Docusate Sodium 100 Mg Capsule, 100 MG PO BID PRN for CONSTIPATION-1ST LINE, ( Reported) Gabapentin 600 Mg Tablet, 1,200 MG PO TID, (Reported) LAST FILLED #180 10-17-17 TAKES 2 (600 MG) TABLETS Lamotrigine 200 Mg Tablet, 200 MG PO BID, (Reported) Risperidone 1 Mg Tablet, 1 MG PO BID, (Reported) Patient Home Medication List Home Medication List Reviewed: Yes Past Svinodq-Xhkysx-Xmqnqz Hx Patient Social History Alcohol Use: Denies Use Recreational Drug Use: No Drug of Choice: THC,DILAUDID,PERCOCET,MORPHINE,HYDROCODONE,XANAX,CLONAZAPAM, OXAZEPAM Smoking Status: Current Everyday Smoker Type Used: Cigarettes 2nd Hand Smoke Exposure: Yes Recent Foreign Travel: No Contact w/Someone Who Travel: No Recent Infectious Disease Expo: No Recent Hopitalizations: No Physical Abuse: No Sexual Abuse: No Mistreated: No (DENIES) Immunizations Up To Date Tetanus Booster (TDap): Less than 5yrs PED Vaccines UTD: Yes Seasonal Allergies Seasonal Allergies: No Past Medical History Surgeries: Yes (FACIAL REPAIR; LEFT TIB-FIB FX/ORIF) Section, Orthopedic, Tubal Ligation Respiratory: Yes (BILATERAL P.E. 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 Sexually Transmitted Disease: No HIV/AIDS: No Genitourinary: Yes (URGENCY, INCONTINENCE) Gastrointestinal: No Musculoskeletal: Yes (FACIAL PAIN/TRIGEMINAL NEURALGIA) Chronic Back Pain Endocrine: No HEENT: No Cancer: No Psychosocial: Yes (EXTENSIVE PSYCH HISTORY ; MULTIPLE PSYCH ADMITS) Anxiety, PTSD, Bipolar, Personality Disorder, Schizophrenia, Depression Integumentary: No Blood Disorders: No Family Medical History Alcoholism 19 FATHER Arthritis 19 MOTHER FH: bipolar disorder No Pertinent Family Hx, Psychiatric Problems Review of Systems-General Constitutional: see HPI EENTM: no symptoms reported Respiratory: no symptoms reported Cardiovascular: no symptoms reported Gastrointestinal: no symptoms reported Genitourinary: no symptoms reported Musculoskeletal: see HPI, back pain Skin: no symptoms reported Psychiatric/Neurological: See HPI Physical Exam-General Problems Physical Exam Vital Signs Vital Signs - First Documented 05/11/18 18:03 Temp 96.9 Pulse 90 Resp 20 B/P (MAP) 158/93 (114) Pulse Ox 100 O2 Delivery Room Air Capillary Refill : Less Than 3 SecondsLess Than 3 Seconds General Appearance: no apparent distress, other HEENT: normal ENT inspection Neck: supple Respiratory: lungs clear Cardiovascular: regular rate, rhythm Gastrointestinal: non tender, soft Rectal: deferred Back: normal inspection, other Extremities: non-tender Neurologic/Psychiatric: alert Skin: ecchymosis Comments during the initial part of my evaluation, she was able to interact and answer questions appropriately. However, toward the end, she showed mild confusion and had a tendency to repeat the questions. Ecchymosis around the left eye without any tenderness. Ecchymosis over the right paraspinal region, possibly due to the transverse process fractures. Minimal tenderness along the right lateral chest wall. No evidence of pneumothorax on chest x-ray or CT scan. Assessment/Plan Assessment/Plan Admission Diagnosis/Plan Lady with psychosomatic disorder and a history of seizures. History of repeated falls. No supervision at home. New and previous rib fractures. Fractures of transverse processes of lumbar vertebra. With regard to the fractures, it is reasonable to manage her symptomatically. It appears that she is unsafe to continue living by herself and therefore the appropriate arrangements may need to be made. I have communicated this with her primary physician, Dr. Vasquez,who intends to initiate the necessary arrangements. Admission Status: Observation Clinical Quality Measures DVT/VTE Risk/Contraindication: Risk Factor Score Per Nursin RFS Level Per Nursing on Admit: 4+=Very High MICHELLE BELLO MD May 12, 2018 09:07
--- NOTE | 2018-05-12 12:04 | NUR ---
SPOKE WITH THE PATIENT ABOUT HER MEDICATIONS, SHE LISTED WHAT SHE TAKES TO THE BEST OF HER ABILITY. SHE RE[facility]IV[facility] HER MEDS [facility], I HAVE FAXED A REQUEST FOR THOSE RECORDS AND WILL UPDATE THE MED REC WHEN THEY ARE RECEIVED. [facility] HAS NOT FILLED ANYTHING FOR THE PATIENT SINCE 04-10-18 FOR PROVENTIL, DOXYCYCLINE, AND PREDNISONE. THE PATIENT STATES THESE WERE SHORT TERM MEDICATIONS AND SHE IS NO LONGER TAKING THEM. NOTHING HAS BEEN FILLED ACCORDING TO [facility] SINCE 11-10-17 FOR OXYCODONE 5-325MG #40 AND CLONAZEPAM 0.5MG #90. ACCORDING TO WHAT THE PATIENT STATES SHE TAKES NOTHING HAS CHANGED SINCE HER LAST ADMISSION, SHE WAS TAKING ELIQUIS LAST TIME BUT THAT WAS DISCONTINUED BY THE PROVIDER AT HER LAST VISIT. IT IS UNCLEAR IF [facility] STILL HAS HER ON IT, SHE THINKS YES. I WILL UPDATE AFTER NEW PAPERWORK IS RECEIVED FROM [facility] Addendum: 05/12/18 at 1547 by SANJANA BREWER [facility] RECEIVED MED LIST FROM [facility] AT THIS TIME AND UPDATED MED REC ACCORDINGLY. [facility] FILLED: 04-06-18 AMITRIPTYLINE 75MG 2 HS #180 04-06-18 LAMOTRIGINE 200MG BID #180 04-03-18 GABAPENTIN 400MG 2 TID #180 03-24-18 GABAPENTIN 300MG 2 TID #180 (DISCONTINUED) 03-10-18 ELIQUIS 2.5MG BID #60 (PAST DUE FOR REFILL, DC'D AT DISCHARGE ON 02-28-18) 03-10-18 RISPERIDONE 1MG BID #60 03-10-18 MUPIROCIN 2% OINT BID TO WOUND ON LEFT GREAT TOE 02-12-18 ATORVASTATIN 40MG 1/2 HS #45 COLACE PRN OTC. I DID NOT PUT THE ELIQUIS ON THE MED REC AT THIS TIME SINCE IT WAS DISCONTINUED ON DISCHARGE AT HER LAST VISIT AND IT IS PAST DUE FOR REFILL.
--- NOTE | 2018-05-12 14:30 | History & Physicial (CHS) ---
HPI History of Present Illness: 52 yo female brought to ER due to confusion and falls. She states she doesn't recall calling for help, but she remembers being at what she thought was supposed to be her home but all of a sudden nothing looked right and her "kitchen was gone" and her dogs were gone. She doesn't remember a specific fall , but states she falls "all the time with seizures", but does also admit that she falls other times as well. She says her memory and speech have gotten worse over the last few months. She also complains of cough and nausea and vomiting over the last month or so. She states she has a daughter and 2 grandchildren in the area who checks on her sometimes, but she lives alone. [facility] to [facility] by [facility] and cannot recall any meds except she recently started a med that starts with R for behavioral health concerns. Source: patient Exam Limitations: clinical condition Date seen by provider: May 12, 2018 Time Seen by Provider: 11:20 Attending Physician Bruna Vasquez MD [facility] [place] Consult Date of Admission May 11, 2018 at 20:17 Home Medications Home Medications Reviewed patient Home Medication Reconciliation performed by pharmacy medication reconciliations medical supply technician and/or nursing. Patients Allergies have been reviewed. Allergies Coded Allergies: No Known Drug Allergies (Unverified , 06/09/14) BZB-Lrnbcc-Fczwzo Hx Patient Social History Alcohol Use: Denies Use Recreational Drug Use: No (history of) Drug of Choice: THC,DILAUDID,PERCOCET,MORPHINE,HYDROCODONE,XANAX,CLONAZAPAM, OXAZEPAM Smoking Status: Current Everyday Smoker Type Used: Cigarettes 2nd Hand Smoke Exposure: Yes Recent Foreign Travel: No Contact w/other who traveled: No Recent Hopitalizations: No Recent Infectious Disease Expo: No Physical Abuse Screen: No Sexual Abuse: No Immunizations Up To Date Tetanus Booster (TDap): Less than 5yrs Past Medical History PMHx: Seizure disorder Trigeminal neuralgia Traumatic brain injury Family Medical History Significant Family History: Psychiatric Problems Family History: Alcoholism 19 FATHER Arthritis 19 MOTHER FH: bipolar disorder Review of Systems (CHC) Constitutional: No fever EENTM: No nose congestion, No throat pain Respiratory: cough Cardiovascular: No chest pain Gastrointestinal: No abdominal pain, No constipation, No diarrhea Genitourinary: no symptoms reported Musculoskeletal: joint pain Skin: No rash Psychiatric/Neurological: See HPI Reviewed Test Results Reviewed Test Results Lab Laboratory Tests Test 05/11/18 18:05 05/11/18 18:48 05/11/18 19:29 05/12/18 06:07 Range/Units White Blood Count 10.3 6.6 4.3-11.0 10^3/uL Red Blood Count 4.46 4.16 L 4.35-5.85 10^6/uL Hemoglobin 13.7 12.8 11.5-16.0 G/DL Hematocrit 41 39 35-52 % Mean Corpuscular Volume 93 95 80-99 FL Mean Corpuscular Hemoglobin 31 31 25-34 PG Mean Corpuscular Hemoglobin Concent 33 33 32-36 G/DL Red Cell Distribution Width 13.7 13.8 10.0-14.5 % Platelet Count 384 364 130-400 10^3/uL Mean Platelet Volume 10.1 9.1 7.4-10.4 FL Neutrophils (%) (Auto) 72 59 42-75 % Lymphocytes (%) (Auto) 19 27 12-44 % Monocytes (%) (Auto) 8 11 0-12 % Eosinophils (%) (Auto) 0 2 0-10 % Basophils (%) (Auto) 0 0 0-10 % Neutrophils # (Auto) 7.4 3.9 1.8-7.8 X 10^3 Lymphocytes # (Auto) 2.0 1.8 1.0-4.0 X 10^3 Monocytes # (Auto) 0.8 0.8 0.0-1.0 X 10^3 Eosinophils # (Auto) 0.0 0.1 0.0-0.3 10^3/uL Basophils # (Auto) 0.0 0.0 0.0-0.1 10^3/uL Prothrombin Time 13.5 12.2-14.7 SEC INR Comment 1.0 0.8-1.4 Activated Partial Thromboplast Time 32 24-35 SEC Urine Color YELLOW Urine Clarity CLEAR Urine pH 7 5-9 Urine Specific [place] 1.010 L 1.016-1.022 Urine Protein NEGATIVE NEGATIVE Urine Glucose (UA) NEGATIVE NEGATIVE Urine Ketones 2+ H NEGATIVE Urine Nitrite NEGATIVE NEGATIVE Urine Bilirubin NEGATIVE NEGATIVE Urine Urobilinogen 1 NORMAL MG/DL Urine Leukocyte Esterase NEGATIVE NEGATIVE Urine RBC (Auto) NEGATIVE NEGATIVE Urine RBC 0-2 /HPF Urine WBC RARE /HPF Urine Crystals PRESENT H /LPF Urine Amorphous Sediment MOD ELIEZER PHOSPHATE H /LPF Urine Bacteria NEGATIVE /HPF Urine Casts NONE /LPF Urine Mucus SMALL H /LPF Urine Culture Indicated NO Urine Opiates Screen NEGATIVE NEGATIVE Urine Oxycodone Screen NEGATIVE NEGATIVE Urine Methadone Screen NEGATIVE NEGATIVE Urine Propoxyphene Screen NEGATIVE NEGATIVE Urine Barbiturates Screen NEGATIVE NEGATIVE Ur Tricyclic Antidepressants Screen POSITIVE H NEGATIVE Urine Phencyclidine Screen NEGATIVE NEGATIVE Urine Amphetamines Screen NEGATIVE NEGATIVE Urine Methamphetamines Screen NEGATIVE NEGATIVE Urine Benzodiazepines Screen NEGATIVE NEGATIVE Urine Cocaine Screen NEGATIVE NEGATIVE Urine Cannabinoids Screen NEGATIVE NEGATIVE Sodium Level 134 L 140 135-145 MMOL/L Potassium Level 3.5 L 3.9 3.6-5.0 MMOL/L Chloride Level 99 105 98-107 MMOL/L Carbon Dioxide Level 25 26 21-32 MMOL/L Anion Gap 10 9 5-14 MMOL/L Blood Urea Nitrogen 10 8 7-18 MG/DL Creatinine 0.80 0.75 0.60-1.30 MG/DL Estimat Glomerular Filtration Rate > 60 > 60 BUN/Creatinine Ratio 13 11 Glucose Level 79 123 H 70-105 MG/DL Calcium Level 8.9 8.5 8.5-10.1 MG/DL Corrected Calcium 9.2 9.0 8.5-10.1 MG/DL Magnesium Level 1.6 L 2.0 1.8-2.4 MG/DL Total Bilirubin 0.4 0.3 0.1-1.0 MG/DL Aspartate Amino Transf (AST/SGOT) 20 16 5-34 U/L Alanine Aminotransferase (ALT/SGPT) 16 17 0-55 U/L Alkaline Phosphatase 88 77 40-136 U/L Ammonia 18 11-32 UMOL/L Troponin I < 0.028 <0.028 NG/ML Total Protein 6.7 5.8 L 6.4-8.2 GM/DL Albumin 3.6 3.4 3.2-4.5 GM/DL TSH Melrude Testing 0.62 0.35-4.94 UIU/ML Acetaminophen Level < 10 L 10-30 UG/ML Serum Alcohol < 10 <10 MG/DL Radiology CXR 05/11/18 IMPRESSION: Nondisplaced fractures of the lateral right ninth and 10th ribs. Airspace opacity at the right lung base may represent atelectasis or contusion. No pneumothorax is seen. CT head/face/cervical spine 05/11/18: IMPRESSION: 1. No acute intracranial hemorrhage or calvarium fracture. 2. Mild left periorbital edema. No definitely acute facial fracture is seen. There is mild irregularity of the left nasal bone which is age indeterminate. 3. Moderate degenerative changes in the cervical spine with no acute fracture seen. CT C/A/P 05/11/18: IMPRESSION: 1. Multiple right-sided rib fractures as described above. There are additional bilateral rib fractures in different stages of healing. 2. Mildly displaced fractures of the right transverse processes at L2 and L3. 3. Small right pleural effusion. Minimal pericardial effusion. 4. Numerous small tree-in-bud type opacities in the left lung, which are nonspecific, but commonly seen with infectious bronchiolitis. Physical Exam-(CHC) Physical Exam Vital Signs VS - Last 72 Hours, by Label 05/11/18 05/11/18 05/11/18 05/11/18 18:03 22:15 22:20 22:20 Temp 96.9 96.9 96.9 Pulse 90 70 75 Resp 20 18 20 B/P (MAP) 158/93 (114) 127/73 (91) 157/77 (103) Pulse Ox 100 100 95 O2 Delivery Room Air Room Air Room Air Room Air 05/11/18 05/11/18 05/12/18 05/12/18 23:20 23:57 00:30 01:00 Temp 96.9 97.0 Pulse 73 70 79 73 Resp 18 16 B/P (MAP) 148/89 (108) 141/65 (90) Pulse Ox 93 93 O2 Delivery Room Air Room Air 05/12/18 05/12/18 05/12/18 05/12/18 02:00 03:00 04:00 05:00 Temp 96.9 96.9 96.5 96.8 Pulse 69 64 63 68 Resp 14 14 16 16 B/P (MAP) 116/77 (90) 143/85 (104) 116/66 (83) 128/76 (93) Pulse Ox 94 95 94 94 O2 Delivery Room Air Room Air Room Air Room Air 05/12/18 05/12/18 05/12/18 05/12/18 06:00 07:00 08:00 09:00 Temp 96.9 98.7 97.4 Pulse 78 68 72 67 Resp 18 18 18 B/P (MAP) 138/83 (101) 155/91 (112) 128/77 (94) Pulse Ox 93 96 95 O2 Delivery Room Air Room Air Room Air 05/12/18 05/12/18 05/12/18 10:00 12:00 13:00 Temp 97.4 98.6 Pulse 73 67 73 Resp 18 18 B/P (MAP) 136/80 (98) 141/78 (99) Pulse Ox 95 94 O2 Delivery Room Air Room Air Capillary Refill : Less Than 3 SecondsLess Than 3 Seconds General Appearance: no apparent distress Eyes: Bilateral Eye PERRL, Bilateral Eye EOMI HEENT: No pharyngeal erythema, No tonsillar exudate Respiratory: lungs clear, normal breath sounds Cardiovascular: regular rate, rhythm, no murmur Gastrointestinal: normal bowel sounds, non tender, soft Extremities: no pedal edema 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 (1) Altered mental status Status: Acute Assessment & Plan: Unclear baseline with history of schizoid disorder and psychosis. CT head without acute findings and no evidence of infection noted on labwork. Will review home meds and chart. Qualifiers: Qualified Codes: R41.0 - Disorientation, unspecified (2) Multiple rib fractures Status: Acute Assessment & Plan: No evidence of pneumonia or pneumothorax at this time. Encourage deep inspiration to avoid secondary pneumonia. Qualifiers: (3) Falls Status: Chronic Assessment & Plan: Patient with history of frequent falls due to seizures but also possibly due to instability, PT consult. Qualifiers: Qualified Codes: W19.XXXS - Unspecified fall, sequela (4) Atrial fibrillation Status: Chronic Assessment & Plan: Per chart review- patient did not note history of. Monitor and resume home med[facility]. Qualifiers: Qualified Codes: I48.2 - Chronic atrial fibrillation (5) Schizo affective schizophrenia Status: Chronic Assessment & Plan: Resume home meds when able to confirm. (6) Hx of seizure disorder Status: Chronic Assessment & Plan: Resume home meds when able to confirm. Seizure precautions. (7) Multiple transverse process fractures Status: Acute Assessment & Plan: Seen by Trauma, appreciate recommendations. Symptomatic management. (8) Discharge planning issues Status: Acute Assessment & Plan: Appears to be unsafe home setting, SW consulted. (9) History of pulmonary embolism Status: Chronic Assessment & Plan: Per chart review, patient did not note on history. Will review records and resume home meds. (10) DVT prophylaxis Status: Acute Assessment & Plan: Appears to have been on anticoagulation in past. Will start enoxaparin for now and review chart. Clinical Quality Measures DVT/VTE Risk/Contraindication: Risk Factor Score Per Nursin RFS Level Per Nursing on Admit: 4+=Very High BRUNA VASQUEZ MD May 12, 2018 14:30
--- NOTE | 2018-05-12 14:37 | Physical Therapy Evaluation ---
PT Evaluation-General Medical Diagnosis Admission Date May 11, 2018 at 20:17 Medical Diagnosis: AMS/multiple rib fractures Onset Date: May 11, 2018 Therapy Diagnosis Therapy Diagnosis: debility Height/Weight Height (Feet): 5 Height (Inches): 8.00 Weight (Pounds): 180 Weight (Ounces): 0.0 Precautions Precautions/Isolations: Fall Prevention, Standard Precautions, Pressure Ulcer Weight Bear Status Right Lower Extremity: Right Full Weight Bearing Left Lower Extremity: Left Full Weight Bearing Referral Physician: Pedro Reason for Referral: Evaluation/Treatment Medical History Pertinent Medical History: Smoking, TBI Additional Medical History seizures/schizophrenia/drug use/PTSD Current History EMS secondary to AMS "I woke up lost" Reviewed History: Yes Social History Home: Single Level Current Living Status: Alone Prior/Core FIM Prior Level of Function Therapy Code Descriptions/Definitions Functional Garrett Measure: 0=Not Assessed/NA 4=Minimal Assistance 1=Total Assistance 5=Supervision or Setup 2=Maximal Assistance 6=Modified Garrett 3=Moderate Assistance 7=Complete Garrett Therapy Quality Codes: 6 Independent with activity with or without an assistive device 5 Patient requires set up or clean up by helper. Patient completes activity by themselves 4 Supervision or touching assist (CGA). Durand provide cues , steadying assist 3 The helper provides less than half the effort to complete the activity 2 The helper provides more than half the effort to complete the activity 1 Dependent. The helper does all the effort to complete an activity 7 Patient refused to complete or attempt activity 9 The patient did not perform the activity before the current illness or injury 88 Not attempted due to Medical conditions or safety concerns Functional Abilities and Goals: Independent: Patient completed the activities by him/herself, with or without an assistive device, with no assistance from a helper. Needed Some Help: Patient needed partial assistance from another person to complete activities. Dependent: A helper completed the activities for the patient. Unknown: Not Applicable: Bed Mobility: 7 Transfers (B,C,W/C) (FIM): 7 Gait: 7 Indoor Mobility (Ambulation): Independent Stairs: Independent PT Evaluation-Current Subjective Patient is very tearful and is worried about her dogs. PT promised SW would be notified of this to ensure safety of the animals. Pain Numeric Pain Scale: 0-No Pain Location: No Pain Reported Objective Patient Orientation: Confused Problem Solving: Poor ROM/Strength ROM Lower Extremities bilateral LE WFL Strength Lower Extremities bilateral LE WFL Integumentary/Posture Integumentary refer to nursing notes Bowel Incontinence: No Bladder Incontinence: No Posture erect Neuromuscular (Tone, Coordination, Reflexes) grossly intact Sensory Vision: Functional Hearing: Functional Sensation Right Lower Extremit: Intact Sensation Left Lower Extremity: Intact Transfers Therapy Code Descriptions/Definitions Functional Garrett Measure: 0=Not Assessed/NA 4=Minimal Assistance 1=Total Assistance 5=Supervision or Setup 2=Maximal Assistance 6=Modified Garrett 3=Moderate Assistance 7=Complete Garrett Transfers (B, C, W/C) (FIM): 7 Scootin Rollin Supine to/from Sit: 7 Sit to/from Stand: 7 Gait Mode of Locomotion: Walk Anticipated Mode of Locomotion: Walk Gait (FIM): 7 Distance (FIM): 3=150 ft Distance: >500' Gait Level of Assist: 7 Gait Assistive Device: None Comments/Gait Description safe and functional Balance Sitting Static: Normal Sitting Dynamic: Normal Standing Static: Normal Standing Dynamic: Normal Assessment/Needs 52 y.o. female, is currently at [facility] with all gross motor skills safely and does not requires skilled therapy intervention. Thank you for this referral. Rehab Potential: Fair PT Plan Treatment/Plan Treatment Plan: Discontinue PT, goals met Treatment Plan: Other Treatment Duration: May 12, 2018 Frequency: 1 time per week Estimated Hrs Per Day: .25 hour per day Patient and/or Family Agrees t: Yes Time/GCodes Time In: 1335 Time Out: 1351 Total Billed Treatment Time: 16 Total Billed Treatment 1 visit EVLowC 16 min [place] PT May 12, 2018 14:37
[2018-05-12] MEDS: ENOXAPARIN 40 MG/0.4 ML (LOVENOX) SYR SQ SCH (15:10)
--- NOTE | 2018-05-12 15:11 | NUR ---
PATIENT REQUESTING TO HAVE HER WALLET FROM LOCK-UP IN HER POSSESSION Addendum: 05/12/18 at 1512 by JOSE AREVALO RN WALLET GIVEN TO THIS PATIENT BY ADOLFO ROPER.
[2018-05-12] MEDS ORDERED: GABA-490 PO (15:34)
[2018-05-12] MEDS: KETOROLAC 30 MG/ML VIAL IV PRN (17:12)
[2018-05-12] MEDS ORDERED: DOCUSATE SODIUM 100 MG (COLACE) CAP PO PRN (18:15)
[2018-05-12] MEDS: GABAPENTIN 400 MG (NEURONTIN) CAP PO SCH (20:50)
[2018-05-12] MEDS: risperiDONE 1 MG (RisperDAL) TAB PO SCH (20:50)
[2018-05-12] MEDS: ATORVASTATIN 20 MG (LIPITOR) TABLET PO SCH (20:50)
[2018-05-12] MEDS: AMITRIPTYLINE 150 MG (ELAVIL) TABLET PO SCH (20:50)
[2018-05-12] MEDS: ACETAMINOPHEN 500 MG TAB (TYLENOL) PO PRN (20:55)
[2018-05-13] VITALS (7 sets, daily range): BP systolic 138–162; BP diastolic 64–84
[2018-05-13] MEDS: D5 1/2 NS W/KCL 20 MEQ/L 1,000 ML IV SCH ×3 (00:44→16:07)
[2018-05-13] MEDS: GABAPENTIN 400 MG (NEURONTIN) CAP PO SCH ×3 (08:51→21:40)
[2018-05-13] MEDS: risperiDONE 1 MG (RisperDAL) TAB PO SCH ×2 (08:51→21:39)
[2018-05-13] MEDS: KETOROLAC 30 MG/ML VIAL IV PRN ×2 (08:57→15:29)
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
[2018-05-13] MEDS: ENOXAPARIN 40 MG/0.4 ML (LOVENOX) SYR SQ SCH (15:25)
--- NOTE | 2018-05-13 15:33 | NUR ---
Pastoral Care Visit.
[2018-05-13] MEDS ORDERED: RT-ALBUTEROL SULF 2.5 MG/3 ML PRE-MIX VIAL INH PRN (16:15)
[2018-05-13] MEDS: RT-ALBUTEROL SULF 2.5 MG/3 ML PRE-MIX VIAL INH SCH (19:27)
[2018-05-13] MEDS: AMITRIPTYLINE 150 MG (ELAVIL) TABLET PO SCH (21:40)
[2018-05-13] MEDS: ATORVASTATIN 20 MG (LIPITOR) TABLET PO SCH (21:40)
--- NOTE | 2018-05-13 22:10 | NUR ---
PT WAS B;LADDER SCANNED TO SHOW 575ML RESIDUAL IN THE BLADDER. PT REPORTED NO DISCOMFORT WHEN ASKED. TOOL PT TO THE BATHROOM AND PT VOIDED 150ML. PT REPORTS SHE WILL TRY TO USE THE RESTROOM AGAIN AND WILL CONTINUE TO MONITOR THE PT AND BLADDER SCAN NEEDED.
[2018-05-14 00:58] VITALS: BP 125/69
[2018-05-14] MEDS: RT-ALBUTEROL SULF 2.5 MG/3 ML PRE-MIX VIAL INH SCH ×4 (02:39→19:49)
[2018-05-14 03:20] VITALS: BP 139/68
[2018-05-14] MEDS: KETOROLAC 30 MG/ML VIAL IV PRN ×2 (03:38→13:26)
--- NOTE | 2018-05-14 05:54 | NUR ---
0130 PT WAS ASKED TO USE THE RESTROOM AND REFUSED TO GET UP. PT WAS RESTING AND VOICED NO COMPLAINT OF DISCOMFORT. 0315 PT WAS ASKED TO GET ON THE COMMODE AGAIN. PT REFUSED. 0345 PT BLADDER WAS RESCANNED WITH 550 RESIDUAL 0400 PT AGREED TO GET ON THE COMMODE. PT VOIDED 500ML
[2018-05-14] MEDS: D5 1/2 NS W/KCL 20 MEQ/L 1,000 ML IV SCH ×3 (06:12→22:27)
[2018-05-14 07:35] VITALS: BP 141/75
[2018-05-14] MEDS: risperiDONE 1 MG (RisperDAL) TAB PO SCH ×2 (08:50→22:13)
[2018-05-14] MEDS: GABAPENTIN 400 MG (NEURONTIN) CAP PO SCH ×3 (08:50→22:11)
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
[2018-05-14 12:43] VITALS: BP 143/81
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
[2018-05-14] MEDS: ENOXAPARIN 40 MG/0.4 ML (LOVENOX) SYR SQ SCH (15:15)
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
[2018-05-14 16:20] VITALS: BP 155/79
--- NOTE | 2018-05-14 17:55 | NUR ---
This RN attempted to notify daughter of patient fall. No answer at this time. Message left with call back number.
[2018-05-14 20:48] VITALS: BP 109/63
[2018-05-14] MEDS: AMITRIPTYLINE 150 MG (ELAVIL) TABLET PO SCH (22:11)
[2018-05-14] MEDS: ATORVASTATIN 20 MG (LIPITOR) TABLET PO SCH (22:11)
[2018-05-15 00:05] VITALS: BP 148/79
--- NOTE | 2018-05-15 00:10 | NUR ---
ON ASSESSMENT OF PT AT BEGINNING OF SHIFT, PTS IV WAS INFILTRATED. WHEN TRYING TO RESTART ANOTHER IV ON PT, PT BECAME VERY LOUD STATING SHE DID NOT NEED ANOTHER IV THAT SHE HAS HAD PLENTY OF FLUIDS. I TRIED EDUCATING PT ON THE REASON SHE NEEDS AN IV IS BC SHE IS HAVING AN MRI IN AM AND THATS WHERE THEY PUT MEDICINE. 2220- SPOKE WITH DR. GOODRICH AND SHE OKAYED FOR PT TO NOT HAVE AN IV ACCESS UNTIL THE AM. 0000- SPOKE WITH DR. GOODRICH AGAIN AND SHE GAVE TELEPHONE ORDERS FOR CLONZEPAM 1MG PO 1X DOSE. SHE STATED TO GIVE THE CLONZAPAM THEN WAIT 30MINS TO SEE IF SHE WOULD LET US PUT IN ANOTHER IV.
[2018-05-15] MEDS: RT-ALBUTEROL SULF 2.5 MG/3 ML PRE-MIX VIAL INH SCH ×5 (02:25→19:13)
[2018-05-15 04:05] VITALS: BP 130/65
[2018-05-15 06:41] LABS: BASOPHILS % (AUTO) 1 % (0-10); EOSINOPHILS # (AUTO) 0.2 10^3/uL (0.0-0.3); EOSINOPHILS % (AUTO) 2 % (0-10); HEMATOCRIT 38 % (35-52); HEMOGLOBIN 11.8 G/DL (11.5-16.0); LYMPHOCYTES # (AUTO) 1.9 X 10^3 (1.0-4.0); LYMPHOCYTES % (AUTO) 24 % (12-44); MEAN CORPUSCULAR HEMOGLOBIN 30 PG (25-34); MEAN CORPUSCULAR HGB CONC 31 G/DL (32-36); MEAN CORPUSCULAR VOLUME 98 FL (80-99); MEAN PLATELET VOLUME 9.5 FL (7.4-10.4); MONOCYTES # (AUTO) 0.7 X 10^3 (0.0-1.0); MONOCYTES % (AUTO) 9 % (0-12); NEUTROPHILS # (AUTO) 5.2 X 10^3 (1.8-7.8); NEUTROPHILS % (AUTO) 65 % (42-75); PLATELET COUNT 339 10^3/uL (130-400); RED BLOOD COUNT 3.93 10^6/uL (4.35-5.85)
[2018-05-15 07:15] LABS: ALANINE AMINOTRANSFERASE 12 U/L (0-55); ALBUMIN 3.2 GM/DL (3.2-4.5); ALKALINE PHOSPHATASE 83 U/L (40-136); BILIRUBIN,TOTAL 0.2 MG/DL (0.1-1.0); BUN/CREATININE RATIO 9; CALCIUM 8.5 MG/DL (8.5-10.1); CARBON DIOXIDE 26 MMOL/L (21-32); CHLORIDE 108 MMOL/L (98-107); CREATININE SERUM 0.75 MG/DL (0.60-1.30); GFR ESTIMATED > 60; GLUCOSE 77 MG/DL (70-105); POTASSIUM 4.4 MMOL/L (3.6-5.0); SODIUM 143 MMOL/L (135-145); TOTAL PROTEIN 5.6 GM/DL (6.4-8.2)
[2018-05-15 08:00] VITALS: BP 167/86
[2018-05-15] MEDS ORDERED: clonazePAM 1 MG (KlonoPIN) TAB PO ONE (08:00)
[2018-05-15] MEDS: GABAPENTIN 400 MG (NEURONTIN) CAP PO SCH ×3 (09:59→21:58)
[2018-05-15] MEDS: risperiDONE 1 MG (RisperDAL) TAB PO SCH ×2 (09:59→21:58)
[2018-05-15] MEDS: D5 1/2 NS W/KCL 20 MEQ/L 1,000 ML IV SCH ×2 (10:33→16:39)
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
[2018-05-15] MEDS: HYDROCHLOROTHIAZIDE 25 MG (HCTZ) TAB PO SCH (12:27)
--- NOTE | 2018-05-15 13:55 | NUR ---
CM/SS. Rounded with physician this a.m. Patient appears better from yesterday, but still not at baseline or overall stability. The longer we engaged in conversation, patient again showed signs of dysarthria. Patient showed awareness of this, stopping to regroup and trying again. Patient insurances were discussed in previous progress notes. She does have Medicare A; however, unsure about access since [facility] insurance is primary. Patient wishes to return home. She continues to have a strong comforting relationship with her two dogs, she stresses about their care when she is not able to provide it. Her daughter and grandson take care of them in her absence. After rounds and discussion with physician, pursued possible transfer to another facility due to MRI down without anticipated repair until May 18 as well as patient's current symptoms suspicious for neurology. Contacted [facility] Utilization RN for additional contact information and followed through by calling patient's assigned primary hospital [facility] of the [place], [place]. They do not have neurology coverage on weekends and would not accept. They recommended patient be sent to the closest tertiary hospital if needed. Updated physician, likely will not transfer. Review status Friday. Will update daughter/DPRAFAEL Zamora when she returns call.
[2018-05-15 16:00] VITALS: BP 147/72
[2018-05-15] MEDS: ENOXAPARIN 40 MG/0.4 ML (LOVENOX) SYR SQ SCH (16:39)
[2018-05-15] MEDS: KETOROLAC 30 MG/ML VIAL IV PRN (16:39)
[2018-05-15 20:02] VITALS: BP 128/82
--- NOTE | 2018-05-15 21:00 | NUR ---
RECEIVED IN REPORT FROM DAY SHIFT NURSE THAT PT DECIDED SHE WAS OKAY WITH A NEW IV ACCESS BEING PUT IN BC PT WANTED PAIN MEDICATION. NEW IV PLACED ON DAY SHIFT. AT APPROXIMATELY 1930 THIS EVENING PT PULLED OUT IV ACCESS AND REFUSED TO LET US PUT IN ANOTHER IV. WILL CONTINUE TO MONITOR PT.
[2018-05-15] MEDS: ATORVASTATIN 20 MG (LIPITOR) TABLET PO SCH (21:58)
[2018-05-15] MEDS: AMITRIPTYLINE 150 MG (ELAVIL) TABLET PO SCH (21:58)
[2018-05-15 23:36] VITALS: BP 115/58
[2018-05-16] VITALS (7 sets, daily range): BP systolic 108–131; BP diastolic 57–81
[2018-05-16] MEDS: RT-ALBUTEROL SULF 2.5 MG/3 ML PRE-MIX VIAL INH SCH ×4 (01:34→19:00)
[2018-05-16] MEDS: D5 1/2 NS W/KCL 20 MEQ/L 1,000 ML IV SCH (06:44)
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
[2018-05-16] MEDS: risperiDONE 1 MG (RisperDAL) TAB PO SCH ×2 (08:48→21:17)
[2018-05-16] MEDS: GABAPENTIN 400 MG (NEURONTIN) CAP PO SCH ×3 (08:48→21:17)
[2018-05-16] MEDS: HYDROCHLOROTHIAZIDE 25 MG (HCTZ) TAB PO SCH (08:48)
[2018-05-16] MEDS: ENOXAPARIN 40 MG/0.4 ML (LOVENOX) SYR SQ SCH (15:55)
[2018-05-16] MEDS: ATORVASTATIN 20 MG (LIPITOR) TABLET PO SCH (21:17)
[2018-05-16] MEDS: AMITRIPTYLINE 150 MG (ELAVIL) TABLET PO SCH (21:17)
[2018-05-16] MEDS: ACETAMINOPHEN 500 MG TAB (TYLENOL) PO PRN (21:23)
[2018-05-17] MEDS: RT-ALBUTEROL SULF 2.5 MG/3 ML PRE-MIX VIAL INH SCH ×4 (01:45→20:08)
[2018-05-17 04:00] VITALS: BP 127/76
[2018-05-17 06:49] VITALS: BP 127/76
[2018-05-17 08:00] VITALS: BP 131/77
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
[2018-05-17] MEDS: GABAPENTIN 400 MG (NEURONTIN) CAP PO SCH ×3 (09:24→20:55)
[2018-05-17] MEDS: HYDROCHLOROTHIAZIDE 25 MG (HCTZ) TAB PO SCH (09:24)
[2018-05-17] MEDS: risperiDONE 1 MG (RisperDAL) TAB PO SCH ×2 (09:24→20:58)
[2018-05-17 12:00] VITALS: BP 112/76
[2018-05-17] MEDS: ENOXAPARIN 40 MG/0.4 ML (LOVENOX) SYR SQ SCH (15:44)
[2018-05-17 15:45] VITALS: BP 90/54
[2018-05-17] MEDS: ACETAMINOPHEN 500 MG TAB (TYLENOL) PO PRN (15:55)
[2018-05-17 19:05] VITALS: BP 100/64
[2018-05-17] MEDS: ATORVASTATIN 20 MG (LIPITOR) TABLET PO SCH (20:55)
[2018-05-17] MEDS: AMITRIPTYLINE 150 MG (ELAVIL) TABLET PO SCH (20:55)
[2018-05-18 00:49] VITALS: BP 93/54
[2018-05-18 03:51] VITALS: BP 98/59
[2018-05-18] MEDS: RT-ALBUTEROL/IPRATROPIUM 3 ML (DUONEB) VIAL INH SCH ×2 (07:35→19:42)
[2018-05-18 08:24] VITALS: BP 114/59
[2018-05-18] MEDS: GABAPENTIN 400 MG (NEURONTIN) CAP PO SCH ×3 (09:38→20:32)
[2018-05-18] MEDS: HYDROCHLOROTHIAZIDE 25 MG (HCTZ) TAB PO SCH (09:38)
[2018-05-18] MEDS: risperiDONE 1 MG (RisperDAL) TAB PO SCH ×2 (09:38→20:33)
--- NOTE | 2018-05-18 09:49 | Progress Note-Hospitalist ---
Subjective HPI/CC On Admission Date Seen by Provider: May 18, 2018 Time Seen by Provider: 09:30 Subjective/Events-last exam Patient doing much better today Appears that the dysarthria may be resolving Reviewed meds and labs MRI was done on last admit 03/04/18 and did not change any management. Guardianship hearing 05/30/18 Needs facility to help her manage ADL's and monitor for falls and seizures No clear indication for transfer to higher level Review of Systems General: Fatigue Gastrointestinal: Constipation Objective Exam Vital Signs Vital Signs Date Time Temp Pulse Resp B/P (MAP) Pulse Ox O2 Delivery O2 Flow Rate FiO2 05/18/18 08:24 97.6 77 18 114/59 (77) 96 Room Air 05/17/18 20:09 21 Capillary Refill : Less Than 3 SecondsLess Than 3 Seconds General Appearance: No Apparent Distress, WD/WN, Chronically ill Respiratory: Chest Non Tender, Lungs Clear, Normal Breath Sounds, No Accessory Muscle Use, No Respiratory Distress Cardiovascular: Regular Rate, Rhythm, No Edema, No Gallop, No JVD, No Murmur, Normal Peripheral Pulses Neurologic/Psychiatric: Alert, Oriented x3, No Motor/Sensory Deficits, Normal Mood/Affect Skin: Normal Color, Warm/Dry Results/Procedures Lab Patient resulted labs reviewed. Assessment/Plan Assessment and Plan Assess & Plan/Chief Complaint Assessment: AMS improved and appears to be back at baseline Falls Seizure d/o Constipation Mental illness Plan: BM treatment DC tomorrow MRI done 03/04/18 and no management changes were made after reviewed results Diagnosis/Problems Diagnosis/Problems (1) Altered mental status Status: Resolved Qualifiers: Altered mental status type: disorientation Qualified Codes: R41.0 - Disorientation, unspecified Resolution Date/Time: 05/18/18 @ 10:34 (2) Hx of seizure disorder Status: Chronic (3) Hx of psychosis Status: Acute (4) Multiple rib fractures Status: Acute Qualifiers: Encounter type: initial encounter (5) Multiple transverse process fractures Status: Acute (6) hx of polysubstance abuse Status: Chronic (7) TBI (traumatic brain injury) Status: Chronic (8) Gait instability Status: Acute (9) At risk for bleeding associated with anticoagulants Status: Chronic (10) Schizo affective schizophrenia Status: Chronic (11) Contusion of multiple sites Status: Acute Clinical Quality Measures DVT/VTE Risk/Contraindication: Risk Factor Score Per Nursin RFS Level Per Nursing on Admit: 4+=Very High TERESA LYNN DO May 18, 2018 09:49
[2018-05-18] MEDS ORDERED: LACTULOSE SYRUP 10GM/15ML (ENULOSE) 30ML UDC PO ONE (10:00)
[2018-05-18] MEDS: SENNA W/DOCUSATE (SENOKOT S) TABLET PO SCH ×2 (10:18→20:33)
[2018-05-18] MEDS: POLYETHYLENE GLYCOL 17 GM (MIRALAX) PACK PO SCH ×2 (10:18→20:34)
[2018-05-18] MEDS: ENOXAPARIN 40 MG/0.4 ML (LOVENOX) SYR SQ SCH (15:22)
--- NOTE | 2018-05-18 15:54 | NUR ---
CM/SS. Final discharge planning. ASSISTED LIVING: Tentative arrangements moving forward for patient to discharge to [facility] ([facility]), tomorrow. Will need to have discussion again with patient in a.m. to confirm she is willing to go directly from hospital to [facility]. Daughter Emely will partner with Susanna Castrosandra from [facility] regarding what to move in on such short notice and about the possibility of having the dogs there in the apartment when she arrives. Additionally they will explore whether [facility] will pay part of housing costs which may take some time and not be an immediate answer. SUMMARY: Multiple bedside visits with patient, including accompanying [facility]/Susanna [facility]. Patient shows continued improvement; she does however have ticks and dysarthria when stressed or feeling anxiety. Topics today seem to exacerbate the dysarthria, particularly as we were talking about moving from her rental into a different environment, different people, schedules, and the positives about that as well. She was concerned about the cost per month $3,000-3,500 depending on room size and that put a damper on her enthusiasm. She asked to consider it overnight. Updated Emely by phone and she will contact Susanna to discuss finances and the actual move. With Emely's work responsibilities, she is not able to have large blocks of time to move items, but if [facility] can set up a bed and minimal accommodations, Emely can work toward getting patient room more comfortable within a few days. Resume planning tomorrow. Hopeful patient will agree to direct move without going home first since it serves no purpose and only perpetuates the negative facets of her entire situation.
[2018-05-18 16:00] VITALS: BP 118/66
--- NOTE | 2018-05-18 16:22 | NUR ---
patient cont to sound chair/bed alarm, gets confrontational with all staff with all interaction. This RN in patient to try to console and deescalate her moods with distraction. This RN will cont. to monitor this patient throughout the remainder of this shift.
[2018-05-18] MEDS: LACTULOSE SYRUP 10GM/15ML (ENULOSE) 30ML UDC PO SCH (20:32)
[2018-05-18] MEDS: ATORVASTATIN 20 MG (LIPITOR) TABLET PO SCH (20:33)
[2018-05-18] MEDS: AMITRIPTYLINE 150 MG (ELAVIL) TABLET PO SCH (20:33)
[2018-05-19] VITALS: BP 116/74
[2018-05-19 08:00] VITALS: BP_SYST 138; BP_DIAS 61; BP_DIAS 81
[2018-05-19] MEDS: POLYETHYLENE GLYCOL 17 GM (MIRALAX) PACK PO SCH (08:27)
[2018-05-19] MEDS: GABAPENTIN 400 MG (NEURONTIN) CAP PO SCH ×2 (08:28→12:27)
[2018-05-19] MEDS: risperiDONE 1 MG (RisperDAL) TAB PO SCH (08:28)
[2018-05-19] MEDS: SENNA W/DOCUSATE (SENOKOT S) TABLET PO SCH (08:28)
[2018-05-19] MEDS: HYDROCHLOROTHIAZIDE 25 MG (HCTZ) TAB PO SCH (08:28)
[2018-05-19] MEDS: LACTULOSE SYRUP 10GM/15ML (ENULOSE) 30ML UDC PO SCH (08:28)
[2018-05-19] MEDS: RT-ALBUTEROL/IPRATROPIUM 3 ML (DUONEB) VIAL INH SCH (09:22)
--- NOTE | 2018-05-19 09:34 | Discharge Summary-Hospitalist ---
TERESA LYNN DO 05/19/18 0934: Diagnosis/Chief Complaint Date of Admission May 11, 2018 at 20:17 Date of Discharge Discharge Date: May 14, 2018 Discharge Diagnosis (1) Altered mental status Status: Resolved (2) Hx of seizure disorder Status: Chronic (3) Hx of psychosis Status: Acute (4) Multiple rib fractures Status: Acute (5) Multiple transverse process fractures Status: Acute (6) hx of polysubstance abuse Status: Chronic (7) TBI (traumatic brain injury) Status: Chronic (8) Gait instability Status: Acute (9) At risk for bleeding associated with anticoagulants Status: Chronic (10) Schizo affective schizophrenia Status: Chronic (11) Contusion of multiple sites Status: Acute Discharge Summary Discharge Physical Exam Allergies: Coded Allergies: No Known Drug Allergies (Unverified , 06/09/14) Vitals & I&Os Vital Signs Date Time Temp Pulse Resp B/P (MAP) Pulse Ox O2 Delivery O2 Flow Rate FiO2 05/19/18 16:00 94 20 136/80 96 Room Air 05/19/18 08:00 96.5 05/17/18 20:09 21 General Appearance: No Apparent Distress, WD/WN, Chronically ill Respiratory: Chest Non Tender, Lungs Clear, Normal Breath Sounds, No Accessory Muscle Use, No Respiratory Distress Cardiovascular: Regular Rate, Rhythm, No Edema, No Gallop, No JVD, No Murmur, Normal Peripheral Pulses Neurologic/Psychiatric: Alert, Oriented x3, No Motor/Sensory Deficits, Normal Mood/Affect Hospital Course Hospital course: Patient had a lengthy hospital course she was admitted after a fall with fractures with altered mental status and questionable seizure since she does have multiple seizures. Patient had extensive workup along with lab evaluation which revealed no reversible cause. Due to the chronic nature of inability to take medication as recommended she agreed to go to assisted living as long as her 2 dogs were able to go with her and she was deemed stable for discharge with close follow-up with [facility]. All medications were reviewed and continued except for hydrochlorothiazide which appeared to give rise to mild hypotension given an increased risk of falls so that was discontinued at discharge and she is not an anticoagulation candidate due to seizure disorder and multiple falls in the past. Labs (last 24 hrs) Patient resulted labs reviewed. Discussion & Recommendations Discharge Planning: <30 minutes discharge planning Discharge Home Medications: Active Scripts Active Reported Gabapentin 400 Mg Capsule 800 Mg PO TID TAKES 2 (400MG) CAPSULES Risperidone 1 Mg Tablet 1 Mg PO BID LAST FILLED #60 -6-18 Colace (Docusate Sodium) 100 Mg Capsule 100 Mg PO BID PRN Atorvastatin Calcium 40 Mg Tablet 20 Mg PO HS TAKES 1/2 (40MG) TABLET Amitriptyline HCl 75 Mg Tablet 150 Mg PO HS TAKES 2 (75 MG) TABLETS Lamotrigine 200 Mg Tablet 200 Mg PO BID Instructions to patient/family Please see electronic discharge instructions given to patient. Clinical Quality Measures DVT/VTE Risk/Contraindication: Risk Factor Score Per Nursin RFS Level Per Nursing on Admit: 4+=Very High ANALIA REYES MEDICAL STUDENT 05/19/18 1206: Discharge Summary Discharge Physical Exam Allergies: Coded Allergies: No Known Drug Allergies (Unverified , 06/09/14) General Appearance: No Apparent Distress, WD/WN HEENT: PERRL/EOMI Respiratory: Chest Non Tender, Lungs Clear Cardiovascular: Regular Rate, Rhythm Neurologic/Psychiatric: Alert, Oriented x3 Hospital Course PT was admitted on 05/11 for AMS and fall. Pt had CT head which showed no acute findings and CT chest/abd/pelvis which showed right sided rib fractures and right L2 and L3 transverse process fractures. Pain was controlled with medication during the stay. Trauma was consulted which recommended symptomatic management. pt discharged [facility] Problem Qualifiers (1) Altered mental status: Altered mental status type: disorientation Qualified Codes: R41.0 - Disorientation, unspecified (2) Multiple rib fractures: Encounter type: initial encounter TERESA LYNN DO May 19, 2018 09:34 ANALIA REYES MEDICAL STUDENT May 19, 2018 12:06
[2018-05-19] MEDS ORDERED: BISACODYL 10 MG SUPP (DULCOLAX) PR NR (10:00)
[2018-05-19] MEDS ORDERED: FLEET ENEMA ADULT 1 EA BTL PR NR (10:00)
[2018-05-19 16:00] VITALS: BP 136/80
--- NOTE | 2018-05-19 17:11 | NUR ---
CM/SS. Lengthy time (hours) spent today on this complex discharge. Patient admitted to [facility] freely this afternoon. This was not without a cycle of distress and anxiety regarding going home vs going to [facility]. Patient TBI history and subsequent difficulty processing at times complicated her decision making and self-expression and periodically interfered with her memory of day old conversations. Daughter brought patient's dogs and was here to pharmacy picking technician patient, but patient would not agree to leave hospital at that moment so Emely returned to work. A short time later, patient agreed to discharge, to [facility], and abstract writer sent her by [employer] with [facility] staff waiting to accept her into the facility. Jet Inspector and Dr. Smith assisted to facilitate getting Rx that patient did not have at her home or that could not be found by her daughter/POA Emely. Additionally, what was found was not correct to current dosing. Dr. mSith partnered with [facility] staff, Rx ordered, Emely to pharmacy picking technician at [facility] pharmacy and provide for [facility]. [facility]/Susanna will contact [place] to explore possible pay toward housing. Emely will deliver the dogs after she gets off work along with the Rx. Patient asked abstract writer to come see her tomorrow, all indications were she was fully aware she was going [facility] to [facility]. She does wish to return to her home for personal items, understandably. Rent is paid until June and abstract writer has advised to keep trips to the house on a low priority so that [facility] can work with patient to assimilate. Guardianship/Conservatorship hearing soon. Emely voiced she may ask the State to appoint a non-family member due to difficulty with patient insistence on self-determining at times even when not in her best interests. The family reached out to abstract writer multiple times, a sister from [place] and patient's mother is also there. Jet Inspector emphasized to communicate with patient about the positives and encourage her since she clearly perceives directives as negatives and resists. This is a milestone today that patient agreed to go someplace other then her rental.
--- NOTE | 2018-05-19 17:15 | NUR ---
RENATO NEGRON discharged from room 423 at this time (see social service note). Belongings returned to patient along with wallet from lockup. Discharge instructions given and finally accepted after much effort. Report called to Taryn ROPER at [facility], copies of discharge information sent. Accompanied by staff to laila with [facility] staff awaitng arrival.
== END 2018-05-19 16:45 | DRG 184 ==
LOC: EDUNIT# 18:02 → ER 18:03 → 4TH 20:17
PROVIDERS: ADMIT Family Medicine; ATTEND Family Medicine
DX: S22.41XA Multiple fractures of ribs, right side, initial encounter for closed fracture (principal); S32.029A Unspecified fracture of second lumbar vertebra, initial encounter for closed fracture; S32.039A Unspecified fracture of third lumbar vertebra, initial encounter for closed fracture; R41.82 Altered mental status, unspecified; S27.321A Contusion of lung, unilateral, initial encounter; J98.11 Atelectasis; E46 Unspecified protein-calorie malnutrition; S00.12XA Contusion of left eyelid and periocular area, initial encounter; S00.83XA Contusion of other part of head, initial encounter; S80.11XA Contusion of right lower leg, initial encounter; S80.12XA Contusion of left lower leg, initial encounter; S50.812A Abrasion of left forearm, initial encounter; S22.42XS Multiple fractures of ribs, left side, sequela; G40.909 Epilepsy, unspecified, not intractable, without status epilepticus; F25.9 Schizoaffective disorder, unspecified; I48.2 Chronic atrial fibrillation; R29.6 Repeated falls; F17.210 Nicotine dependence, cigarettes, uncomplicated; E78.00 Pure hypercholesterolemia, unspecified; G50.0 Trigeminal neuralgia; F41.9 Anxiety disorder, unspecified; F31.9 Bipolar disorder, unspecified; F60.9 Personality disorder, unspecified; R47.1 Dysarthria and anarthria; K59.00 Constipation, unspecified; W19.XXXA Unspecified fall, initial encounter; Y92.009 Unspecified place in unspecified non-institutional (private) residence as the place of occurrence of the external cause; Z87.820 Personal history of traumatic brain injury; Z86.711 Personal history of pulmonary embolism
CPT/HCPCS: 36415; 51702; 70450; 70486; 71046; 71260; 72125; 74177; 80053; 80306; 80320; 80329; 81000; 82140; 82607; 82746; 83735; 84443; 84484; 85025; 85610; 85730; 93005; 93041; 94640; 94760; 96361; 96374; 96375

== ENCOUNTER 2018-07-07 14:57 | Emergency (ER) | payer OTHER ==
[~2018-07-07] VITALS: Ht 170.2 cm; Wt 82.6 kg
--- OUTSIDE RECORDS SUMMARY | 2018-07-07 15:19 | XMS REPORT | Clinical Summary ---
Author Author [facility] Organization [facility] Address Unknown Phone Unavailable Care Team Providers Care Building Materials Sales Attendant Name Role Phone RamonMarla hawkins PERSONNEL RESEARCH SCIENTIST PCP Source Comments Some departments are not documenting in the electronic medical record. If you do not see the information that you expected, contact Release of Information in the Health Information Management department at [phone] for further assistance in locating additional records.[facility] Allergies No Known Allergies Medications End Date [...] PM CDT Pulse 86 06/06/2016 1:24 PM LINE MAINTENANCE Temperature 36.8 C (98.2 F) - Respiratory [...] 08/24/2013 VACCINE (1 of 2) INFLUENZA VACCINE 12/03/2018 Results Not on filefrom Last 3 Months Advance Directives Patient has advance care planning documents on file. For more information, please contact: [facility] [address] [place] [address]
--- NOTE | 2018-07-07 15:42 | ED General ---
General Chief Complaint: General Problems/Pain Stated Complaint: FACIAL PAIN Nursing Triage Note: ARRIVED VIA AMB TO TRIAGE WITH COMPLAINTS OF CHRONIC RIGHT SIDED FACIAL PAIN. WOULD LIKE A SCRIPT FOR ANXIETY AND PAIN. Nursing Sepsis Screen: No Definite Risk Source of Information: Patient History of Present Illness Date Seen by Provider: Jul 07, 2018 Time Seen by Provider: 15:35 Initial Comments 52 year old female who presents to the emergency room with complains of increased anxiety and chronic right sided facial neuralgia. She takes gabapentin regularly for her neuralgia and has a long history of mental health disorders. Timing/Duration: Other Associated Systoms: Denies Symptoms Allergies and Home Medications Allergies Coded Allergies: No Known Drug Allergies (Unverified , 06/09/14) Home Medications Amitriptyline HCl 75 Mg Tablet, 150 MG PO HS, (Reported) TAKES 2 (75 MG) TABLETS Atorvastatin Calcium 40 Mg Tablet, 20 MG PO HS, (Reported) TAKES 1/2 (40MG) TABLET Docusate Sodium 100 Mg Capsule, 100 MG PO BID PRN for CONSTIPATION-1ST LINE, ( Reported) Gabapentin 400 Mg Capsule, 800 MG PO TID, (Reported) TAKES 2 (400MG) CAPSULES Lamotrigine 200 Mg Tablet, 200 MG PO BID, (Reported) Risperidone 1 Mg Tablet, 1 MG PO BID, (Reported) LAST FILLED #60 03-10-18 Patient Home Medication List Home Medication List Reviewed: Yes Review of Systems Review of Systems Constitutional: no symptoms reported, see HPI Skin: see HPI, other Psychiatric/Neurological: See HPI, Anxiety All Other Systems Reviewed Negative Unless Noted: Yes Past Lqbmzjj-Fuihpp-Aviull Hx Past Med/Social Hx: Reviewed Nursing Past Med/Soc Hx Patient Social History Alcohol Use: Denies Use Recreational Drug Use: No Drug of Choice: THC,DILAUDID,PERCOCET,MORPHINE,HYDROCODONE,XANAX,CLONAZAPAM, OXAZEPAM Smoking Status: Current Everyday Smoker Type Used: Cigarettes 2nd Hand Smoke Exposure: Yes Recent Foreign Travel: No Contact w/Someone Who Travel: No Recent Infectious Disease Expo: No Recent Hopitalizations: No Immunizations Up To Date Tetanus Booster (TDap): Less than 5yrs PED Vaccines UTD: Yes Seasonal Allergies Seasonal Allergies: No Past Medical History Surgeries: Yes (FACIAL REPAIR; LEFT TIB-FIB FX/ORIF) Section, Orthopedic, Tubal Ligation Respiratory: Yes (BILATERAL P.E. 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 Sexually Transmitted Disease: No HIV/AIDS: No Genitourinary: Yes (URGENCY, INCONTINENCE) Gastrointestinal: No Musculoskeletal: Yes (FACIAL PAIN/TRIGEMINAL NEURALGIA) Chronic Back Pain Endocrine: No HEENT: No Cancer: No Psychosocial: Yes (EXTENSIVE PSYCH HISTORY ; MULTIPLE PSYCH ADMITS) Anxiety, PTSD, Bipolar, Personality Disorder, Schizophrenia, Depression Integumentary: No Blood Disorders: No Family Medical History Reviewed Nursing Family Hx Alcoholism 19 FATHER Arthritis 19 MOTHER FH: bipolar disorder Psychiatric Problems Physical Exam Vital Signs Vital Signs - First Documented 07/07/18 15:05 Temp 98.6 Pulse 90 Resp 16 B/P (MAP) 136/83 (100) Pulse Ox 95 O2 Delivery Room Air Capillary Refill : Less Than 3 Seconds Height, Weight, BMI Height: 5'7.00" Weight: 182lbs. 2.0oz. 82.634822sk; 27.4 BMI Method:Stated General Appearance: No Apparent Distress, WD/WN Eyes: Bilateral Eye Normal Inspection, Bilateral Eye PERRL, Bilateral Eye EOMI HEENT: PERRL/EOMI, TMs Normal, Normal ENT Inspection, Pharynx Normal Neck: Full Range of Motion, Normal Inspection, Non Tender, Supple, Carotid Bruit Respiratory: Chest Non Tender, Lungs Clear, Normal Breath Sounds, No Accessory Muscle Use, No Respiratory Distress Cardiovascular: Regular Rate, Rhythm, No Edema, No Gallop, No JVD, No Murmur, Normal Peripheral Pulses Extremity: Normal Capillary Refill Neurologic/Psychiatric: Alert, Oriented x3, Normal Mood/Affect Skin: Normal Color, Warm/Dry Procedures/Interventions Suture Size: 4-0 Progress/Results/Core Measures Suspected Sepsis Recent Fever Within 48 Hours: No Infection Criteria Present: None New/Unexplained Altered Menta: No Sepsis Screen: No Definite Risk SIRS Temperature:98.6 Pulse: 90 Respiratory Rate: 16 Blood Pressure 136 /83 Mean: 100 Results/Orders My Orders Vital Signs/I&O Capillary Refill : Less Than 3 Seconds Blood Pressure Mean: 100 Progress Note : Time: 15:41 Progress Note I have seen and evaluated the patient. The patient asked for prescriptions for pain medication and anxiety medications, I informed her that if she needed for follow up with her PCP for [facility] pain and anxiety management. She agrees with plan of care, plans for discharge, return precautions were given. Departure Impression Primary Impression: Chronic pain Additional Impression: Generalized anxiety disorder Disposition: 01 HOME, SELF-CARE Condition: Stable/Unchanged Departure-Patient Inst. Decision time for Depature: 15:41 Referrals: [facility] ([facility]) Primary Care Physician BRUNA GOODRICH MD (Family) Primary Care Physician Patient Instructions: Anxiety, Adult (DC), CHRONIC PAIN Add. Discharge Instructions: Resume your home medications as previously prescribed. Call today to see if you can schedule a closer date with your neurologist. Follow-up with your primary care provider as needed. Return back to the emergency room for worsening symptoms or concerns as needed. All discharge instructions reviewed with patient and/or family. Voiced understanding. NOAH ARANDA Jul 07, 2018 15:42
[2018-07-07] MEDS ORDERED: KETOROLAC 60 MG/2 ML VIAL IM ONE (15:45)
[2018-07-07] MEDS ORDERED: ALPRAZolam 0.25 MG (XANAX) TAB PO SCH (15:45)
--- NOTE | 2018-07-07 15:50 | NUR ---
PT IS ANIOUS ET WANTING TO LEAVE SOON SHE CAN.
[2018-07-07 15:54] VITALS: BP 136/83
== END 2018-07-07 15:54 | disposition home or self-care (01) ==
LOC: EDUNIT# 14:57 → ER 14:58
DX: F41.1 Generalized anxiety disorder (principal); R51 Headache; G89.29 Other chronic pain; F12.10 Cannabis abuse, uncomplicated; E78.00 Pure hypercholesterolemia, unspecified; F43.10 Post-traumatic stress disorder, unspecified; F31.9 Bipolar disorder, unspecified; F20.9 Schizophrenia, unspecified; G43.909 Migraine, unspecified, not intractable, without status migrainosus; F11.10 Opioid abuse, uncomplicated; F19.10 Other psychoactive substance abuse, uncomplicated; F17.210 Nicotine dependence, cigarettes, uncomplicated; Z98.890 Other specified postprocedural states; Z98.51 Tubal ligation status; Z87.820 Personal history of traumatic brain injury; Z86.711 Personal history of pulmonary embolism; Z87.01 Personal history of pneumonia (recurrent)
CPT/HCPCS: 99284

== ENCOUNTER → 2018-07-07 | Outpatient (CLI) | payer MEDICARE, OTHER ==
[~2018-07-07] MED LIST changes: +GABA-490 PO; -GABA600T2 PO; +GABA800T10 PO; -GABA800T2 PO; +GBPN600T PO; -LAMO25TA PO; +LAMO25TA8 PO; +LOSA25TA41 PO; -LOSA25TA6 PO
--- NOTE | 2018-07-20 12:04 | Diagnostic Imaging Report ---
INDICATION: Routine screening. COMPARISON: 10/09/2011. TECHNIQUE: 2D and 3D bilateral screening mammography was performed with CAD. FINDINGS: Scattered fibroglandular densities are identified bilaterally. A nodular density in the medial right breast appears stable. No dominant mass or malignant appearing microcalcifications are seen. The axillae are unremarkable. IMPRESSION: No mammographic features suspicious for malignancy are identified. ACR BI-RADS Category 2: Benign findings. Result letter will be mailed to the patient. Note: At least 10% of breast cancer is not imaged by mammography. Dictated by: Dictated on workstation # [id number]
== END ==
LOC: RAD 14:24
PROVIDERS: ATTEND Family Medicine
DX: Z12.31 Encounter for screening mammogram for malignant neoplasm of breast (principal)
CPT/HCPCS: 77067

== ENCOUNTER 2018-11-24 11:30 | Emergency (ER) | payer OTHER ==
[~2018-11-24] VITALS: Ht 170.2 cm; Wt 86.2 kg
--- OUTSIDE RECORDS SUMMARY | 2018-11-24 11:39 | XMS REPORT | Clinical Summary ---
Author Author [facility] Organization [facility] Address Unknown Phone Unavailable Care Team Providers Care Orthotics Assistant Name Role Phone Marla Navarro NIPPLE MACHINE OPERATOR PCP Source Comments Some departments are not documenting in the electronic medical record. If you d o not see the information that you expected, contact Release of Information in [facility] [employer] Information Management department at [phone] for further assistan ce in locating additional records.[facility] Allergies No Known Allergies Medications End Date [...] Current Every Day Smoker Cigarettes 1 25 Drinks/Week oz/Week Comments Alcohol Use 0 Standard drinks or equivalent 0.0 No Sex Assigned at Date Recorded Not on file Industry Job Start Date Occupation Not on file Not on file Not on file Travel End Travel History Travel Start No recent travel history available. Last Filed Vital Signs Reading Time Taken Comments Vital Sign 162/77 03/04/2017 3:44 PM CDT Blood Pressure 86 03/04/2017 3:44 PM CDT Pulse 36.8 C (98.2 F) 06/06/2016 1:24 PM STRAIN TECHNICIAN Temperature - - Respiratory Rate 100% 03/04/2017 3:44 PM CDT Oxygen Saturation - - Inhaled Oxygen Concentration 83.2 kg (183 lb 6.4 oz) 03/04/2017 3:44 PM CDT Weight 170.2 cm (5' 7.01") 03/04/2017 3:44 PM CDT Height 28.72 03/04/2017 3:44 PM CDT Body Mass Index Plan of Treatment Health Maintenance Due Date Last Done Comments HEPATITIS C SCREENING 1963 PHYSICAL (COMPREHENSIVE) 08/24/1970 EXAM HIV SCREENING 08/24/1978 DTAP/TDAP VACCINES (1 - 08/24/1981 Tdap) CERVICAL CANCER SCREENING 08/24/1993 BREAST CANCER SCREENING 2003 COLORECTAL CANCER 08/24/2013 SCREENING SHINGLES RECOMBINANT 08/24/2013 VACCINE (1 of 2) INFLUENZA VACCINE 02/02/2019 Results Not on filefrom Last 3 Months Advance Directives Patient Animal Feeder Explanation Type Date Recorded Advance 03/12/2016 1:00 PM Directive/DPOA
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
[2018-11-24 11:48] LABS: BASOPHILS % (AUTO) 0 % (0-10); EOSINOPHILS # (AUTO) 0.1 10^3/uL (0.0-0.3); EOSINOPHILS % (AUTO) 1 % (0-10); HEMATOCRIT 43 % (35-52); HEMOGLOBIN 14.5 G/DL (11.5-16.0); LYMPHOCYTES % (AUTO) 26 % (12-44); MEAN CORPUSCULAR HEMOGLOBIN 31 PG (25-34); MEAN CORPUSCULAR HGB CONC 34 G/DL (32-36); MEAN CORPUSCULAR VOLUME 92 FL (80-99); MEAN PLATELET VOLUME 8.7 FL (7.4-10.4); MONOCYTES # (AUTO) 0.8 X 10^3 (0.0-1.0); MONOCYTES % (AUTO) 10 % (0-12); NEUTROPHILS # (AUTO) 4.7 X 10^3 (1.8-7.8); NEUTROPHILS % (AUTO) 62 % (42-75); PLATELET COUNT 388 10^3/uL (130-400); RED CELL DISTRIBUTION WIDTH 13.3 % (10.0-14.5); WHITE BLOOD COUNT 7.5 10^3/uL (4.3-11.0)
[2018-11-24 12:18] LABS: ALANINE AMINOTRANSFERASE 10 U/L (0-55); ALBUMIN 3.5 GM/DL (3.2-4.5); ALKALINE PHOSPHATASE 60 U/L (40-136); BILIRUBIN,TOTAL 0.1 MG/DL (0.1-1.0); BUN/CREATININE RATIO 11; CALCIUM 7.4 MG/DL (8.5-10.1); CARBON DIOXIDE 19 MMOL/L (21-32); CHLORIDE 104 MMOL/L (98-107); CREATININE SERUM 0.62 MG/DL (0.60-1.30); GFR ESTIMATED > 60; GLUCOSE 94 MG/DL (70-105); POTASSIUM 3.8 MMOL/L (3.6-5.0); SODIUM 132 MMOL/L (135-145); TOTAL PROTEIN 5.6 GM/DL (6.4-8.2)
[2018-11-24] MEDS ORDERED: CALCIUM CARBONATE 500 MG (TUMS) TAB.CHEW PO ONE (12:30)
[2018-11-24] MEDS ORDERED: IBUPROFEN 800 MG (MOTRIN) TAB PO ONE (12:30)
--- NOTE | 2018-11-24 12:35 | Diagnostic Imaging Report ---
PROCEDURE: CT head and CT cervical spine without contrast. TECHNIQUE: Multiple contiguous axial images were obtained through the brain and cervical spine without the use of intravenous contrast. Sagittal and coronal reformations through the cervical spine were then performed. Auto Exposure Controls were utilized during the CT exam to meet ALARA standards for radiation dose reduction. INDICATION: Found down. History of seizure disorder. Possible trauma. COMPARISON: 05/11/2018 FINDINGS: CT head: There is moderate soft tissue hematoma posterior laterally on the right. Underlying bony calvarium is intact. The ventricles and cortical sulci are normal in size and contour. There is no midline shift or mass-effect. No acute intra-axial hemorrhage is seen. There are no abnormal areas of increased or decreased density to suggest acute hemorrhage or edema. No extra-axial masses or collections are present. The visualized paranasal sinuses are unremarkable. The mastoid air cells are clear. CT cervical spine: Static alignment of the cervical spine is maintained. There is no significant anterolisthesis or retrolisthesis. There is no evidence of jumped facets. Vertebral body heights are preserved. There is no evidence of acute fracture. No bony fragments are seen within the spinal canal. There are moderate multilevel degenerative changes consistent with intervertebral disc height loss as well as anterior and posterior disc osteophyte complex formations and multilevel facet arthropathy. These changes appear greatest at the C5-C6 level. Pre- and paravertebral soft tissue structures are unremarkable. Note is made of calcified carotid atherosclerosis. Included portions of the lung apices are clear. IMPRESSION: 1. No acute intracranial abnormality. No CT evidence of mass, acute infarct or intracranial hemorrhage. 2. Moderate soft tissue hematoma of the head posterolaterally on the right. 3. No acute fracture or dislocation of the cervical spine. 4. Moderate multilevel degenerative changes, greatest at C5-C6. Dictated by: Dictated on workstation # [id number]
[2018-11-24] MEDS ORDERED: ACETAMINOPHEN 500 MG TAB (TYLENOL) PO ONE (14:15)
[2018-11-24 14:24] LABS: BILIRUBIN,URINE NEGATIVE (NEGATIVE); CLARITY,URINE CLEAR; COLOR,URINE YELLOW; GLUCOSE, URINE (UA) NEGATIVE (NEGATIVE); KETONES,URINE NEGATIVE (NEGATIVE); LEUKOCYTE ESTERASE ,URINE 1+ (NEGATIVE); NITRITE,URINE NEGATIVE (NEGATIVE); PH,URINE 6.5 (5-9); PROTEIN,URINE 1+ (NEGATIVE); UROBILINOGEN,URINE 1 MG/DL (NORMAL)
[2018-11-24 14:25] LABS: BACTERIA,URINE TRACE /HPF
[2018-11-24 14:32] LABS: AMPHETAMINE SCREEN, URINE NEGATIVE (NEGATIVE); BARBITURATE SCREEN URINE NEGATIVE (NEGATIVE); BENZODIAZEPINES SCREEN URINE NEGATIVE (NEGATIVE); CANNABINOID SCREEN, URINE NEGATIVE (NEGATIVE); COCAINE SCREEN URINE NEGATIVE (NEGATIVE); METHADONE STAT NEGATIVE (NEGATIVE); METHAMPHETAMINE SCREEN URINE S NEGATIVE (NEGATIVE); OPIATE SCREEN URINE NEGATIVE (NEGATIVE); OXYCODONE STAT NEGATIVE (NEGATIVE); PROPOXYPHENE STAT NEGATIVE (NEGATIVE); TRICYCLIC ANTIDEPRESSANTS SCRE POSITIVE (NEGATIVE)
[2018-11-24 14:49] VITALS: BP 140/86
== END 2018-11-24 14:49 | disposition home or self-care (01) ==
LOC: EDUNIT# 11:30 → ER 11:33
DX: S00.03XA Contusion of scalp, initial encounter (principal); G40.909 Epilepsy, unspecified, not intractable, without status epilepticus; E78.00 Pure hypercholesterolemia, unspecified; F32.9 Major depressive disorder, single episode, unspecified; F20.9 Schizophrenia, unspecified; F31.9 Bipolar disorder, unspecified; F43.10 Post-traumatic stress disorder, unspecified; F41.9 Anxiety disorder, unspecified; F60.9 Personality disorder, unspecified; Z86.711 Personal history of pulmonary embolism; Z87.01 Personal history of pneumonia (recurrent); Z77.22 Contact with and (suspected) exposure to environmental tobacco smoke (acute) (chronic); Z98.51 Tubal ligation status; R40.2412 Glasgow coma scale score 13-15, at arrival to emergency department; X58.XXXA Exposure to other specified factors, initial encounter
CPT/HCPCS: 36415; 70450; 72125; 80053; 80306; 80320; 81000; 85025

== ENCOUNTER → 2018-12-05 | Emergency (ER) | payer OTHER | LOC: ER 13:04 ==

== ENCOUNTER 2019-03-13 14:38 | Emergency (ER) | payer OTHER ==
[~2019-03-13] VITALS: Ht 170 cm; Wt 87.0 kg
[~2019-03-13 14:38] MED LIST changes: -DULO60CA58 PO; +DULO60CA59 PO
[2019-03-13 15:40] LABS: BASOPHILS % (AUTO) 0 % (0-10); EOSINOPHILS # (AUTO) 0.1 10^3/uL (0.0-0.3); EOSINOPHILS % (AUTO) 0 % (0-10); HEMATOCRIT 44 % (35-52); LYMPHOCYTES % (AUTO) 18 % (12-44); MEAN CORPUSCULAR HEMOGLOBIN 32 PG (25-34); MEAN CORPUSCULAR HGB CONC 34 G/DL (32-36); MEAN CORPUSCULAR VOLUME 93 FL (80-99); MEAN PLATELET VOLUME 8.5 FL (7.4-10.4); MONOCYTES # (AUTO) 0.8 X 10^3 (0.0-1.0); MONOCYTES % (AUTO) 7 % (0-12); NEUTROPHILS # (AUTO) 8.3 X 10^3 (1.8-7.8); NEUTROPHILS % (AUTO) 74 % (42-75); PLATELET COUNT 350 10^3/uL (130-400); RED CELL DISTRIBUTION WIDTH 12.5 % (10.0-14.5); WHITE BLOOD COUNT 11.2 10^3/uL (4.3-11.0)
[2019-03-13 16:00] LABS: ALANINE AMINOTRANSFERASE 18 U/L (0-55); ALBUMIN 4.5 GM/DL (3.2-4.5); ALKALINE PHOSPHATASE 89 U/L (40-136); BILIRUBIN,TOTAL 0.3 MG/DL (0.1-1.0); BUN/CREATININE RATIO 14; CALCIUM 9.5 MG/DL (8.5-10.1); CARBON DIOXIDE 23 MMOL/L (21-32); CHLORIDE 94 MMOL/L (98-107); CREATININE SERUM 0.73 MG/DL (0.60-1.30); GFR ESTIMATED > 60; GLUCOSE 97 MG/DL (70-105); POTASSIUM 4.4 MMOL/L (3.6-5.0); SODIUM 131 MMOL/L (135-145); TOTAL PROTEIN 7.7 GM/DL (6.4-8.2)
--- NOTE | 2019-03-13 16:28 | Diagnostic Imaging Report ---
PROCEDURE: CT head without contrast. TECHNIQUE: Multiple contiguous axial images were obtained through the brain without the use of intravenous contrast. Auto Exposure Controls were utilized during the CT exam to meet ALARA standards for radiation dose reduction. INDICATION: Vision trouble. Disequilibrium. COMPARISON: CT head of 11/24/2018. FINDINGS: No hyperdense hemorrhage or space-occupying mass. No hydrocephalus or midline shift. Levine-white matter differentiation is well preserved. No acute calvarial abnormality. Paranasal sinuses and mastoid air cells are clear. IMPRESSION: No acute intracranial process. Exam is stable since 11/24/2018. Dictated by: Dictated on workstation # [id number]
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
[2019-03-13 17:21] VITALS: BP 158/87
== END 2019-03-13 17:21 | disposition home or self-care (01) ==
LOC: EDUNIT# 14:38 → ER 14:39
DX: S06.9X0A Unspecified intracranial injury without loss of consciousness, initial encounter (principal); F25.9 Schizoaffective disorder, unspecified; E78.00 Pure hypercholesterolemia, unspecified; G40.909 Epilepsy, unspecified, not intractable, without status epilepticus; F41.9 Anxiety disorder, unspecified; F43.10 Post-traumatic stress disorder, unspecified; F31.9 Bipolar disorder, unspecified; F60.9 Personality disorder, unspecified; Z77.22 Contact with and (suspected) exposure to environmental tobacco smoke (acute) (chronic); Z98.51 Tubal ligation status; Z86.711 Personal history of pulmonary embolism; X58.XXXA Exposure to other specified factors, initial encounter
CPT/HCPCS: 36415; 70450; 80053; 80320; 85025

== ENCOUNTER 2019-05-20 17:52 | Emergency (ER) | payer OTHER ==
[~2019-05-20] VITALS: Ht 170 cm; Wt 86.0 kg
[~2019-05-20 17:52] MED LIST changes: -LAMO200T2 PO; +LAMO200T5 PO
[2019-05-20] MEDS ORDERED: BUSP10TA95 (17:58)
[2019-05-20] MEDS ORDERED: RX-HYDROCODONE/APAP 5/325 MG #4 TAB PK PO PRN (18:00)
[2019-05-20] MEDS ORDERED: CEPH-507 PO (18:03)
[2019-05-20] MEDS ORDERED: HYDR-4226 PO (18:03)
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
[2019-05-20 18:11] VITALS: BP 130/85
[2019-05-20] MEDS ORDERED: BACITRACIN OINTMENT 28 GM TUBE TOP SCH (21:00)
== END 2019-05-20 18:15 | disposition home or self-care (01) ==
LOC: EDUNIT# 17:52 → ER 17:54
DX: T25.221A Burn of second degree of right foot, initial encounter (principal); T31.0 Burns involving less than 10% of body surface; E78.00 Pure hypercholesterolemia, unspecified; G40.909 Epilepsy, unspecified, not intractable, without status epilepticus; F41.9 Anxiety disorder, unspecified; F43.10 Post-traumatic stress disorder, unspecified; F60.9 Personality disorder, unspecified; F20.9 Schizophrenia, unspecified; F31.9 Bipolar disorder, unspecified; Z86.711 Personal history of pulmonary embolism; Z86.73 Personal history of transient ischemic attack (TIA), and cerebral infarction without residual deficits; Z77.22 Contact with and (suspected) exposure to environmental tobacco smoke (acute) (chronic); Z98.51 Tubal ligation status; X12.XXXA Contact with other hot fluids, initial encounter
CPT/HCPCS: 99283